=== PATIENT | female | born 1965 | race African-American/Black ===

== ENCOUNTER 2016-12-09 09:15 | Inpatient (IN) | payer MEDICARE, OTHER ==
[~2016-12-09] VITALS: Ht 162.6 cm; Wt 131.1 kg
[~2016-12-09 09:15] MED LIST: ACETAMINOPHEN-1 EAC1 ORAL; ADVAIR 250-501 EACH INH; AMOXICILLIN500 MG ORAL; ASPIR 8181 MG ORAL; CEPHALEXIN500 M1 ORAL; COLACE100 MG ORAL; DIPHENHYDRAMINE25 M1 ORAL; FUROSEMIDE20 M1 ORAL; GEODON40 MG ORAL; HYDROXYZINE PA100 MG ORAL; IBUPROFEN600 MG ORAL; ISOSORBIDE DINIT5 MG ORAL; LEVAQUIN500 MG ORAL; LIPITOR40 MG ORAL; LISINOPRIL5 MG ORAL; LOPRESSOR25 M1 ORAL; MEDROL DOSEPAK4 MG ORAL; MIRALAX17 GM ORAL; NICODERM 21MG/241 EA TDERMAL; NORCO 5-325 TA1 EACH ORAL; PENICILLIN V P500 MG ORAL; PROMETHAZINE-C118 M1 ORAL; QVAR ORAL; RANITIDINE HCL150 M1 ORAL; SPIRIVA18 MCG INH; TYLENOL325 MG ORAL; XOPENEX HFA15 GM IH; ZOLOFT100 MG ORAL
[2016-12-09 09:34] VITALS: BP 153/79
[2016-12-09] MEDS ORDERED: Solu-MEDROL 125mg Inj IVP ONE (09:45)
[2016-12-09 09:51] LABS: BASOPHILS % (AUTO) 0.7 % (0.0-2.0); EOSINOPHILS % (AUTO) 2.1 % (0.0-3.0); LYMPHOCYTES % (AUTO) 8.2 % (20.0-45.0); MEAN CORPUSCULAR HEMOGLOBIN 23.1 PG (27.0-31.0); MEAN CORPUSCULAR HGB CONC 29.2 G/DL (32.0-36.0); MEAN CORPUSCULAR VOLUME 79 FL (80-99); MEAN PLATELET VOLUME 5.6 FL (6.5-10.1); MONOCYTES % (AUTO) 4.2 % (1.0-10.0); NEUTROPHILS % (AUTO) 84.8 % (45.0-75.0); PLATELET COUNT 235 K/UL (150-450); RED CELL DISTRIBUTION WIDTH 18.5 % (11.6-14.8); WHITE BLOOD COUNT 7.5 K/UL (4.8-10.8)
[2016-12-09] MEDS: Albuterol ud Inhalation HHN SCH ×3 (09:52→10:39)
[2016-12-09] MEDS: Ipratropium 0.02% Inh Soln 2.5ml UD HHN SCH ×3 (09:52→10:39)
[2016-12-09 10:02] LABS: TROPONIN I < 0.30 ng/mL (<=0.30)
[2016-12-09 10:03] LABS: ALANINE AMINOTRANSFERASE 7 U/L (3-33); ALBUMIN/GLOBULIN RATIO 1.7 (1.0-2.7); ANION GAP 10 (5-15); ASPARTATE AMINO TRANSFERASE 15 U/L (5-40); CALCIUM 8.6 mg/dL (8.6-10.2); CARBON DIOXIDE 35 mEQ/L (20-30); CHLORIDE 96 mEQ/L (98-107); CREATININE 0.7 mg/dL (0.5-0.9); GLOMERULAR FILTRATION RATE > 60 mL/min (>60); HEMOLYSIS 33; POTASSIUM 3.7 mEQ/L (3.4-4.9); SODIUM 141 mEQ/L (135-145); TOTAL PROTEIN 6.4 g/dL (6.6-8.7)
[2016-12-09] MEDS ORDERED: TRAMADOL HCL100 M2 ORAL (10:10)
[2016-12-09] MEDS ORDERED: PROAIR HFA8.5 GM INH (10:10)
[2016-12-09] MEDS ORDERED: IBUPROFEN200 MG ORAL (10:10)
[2016-12-09] MEDS ORDERED: NITROGLYCERIN2.5 M1 SL (10:10)
[2016-12-09 10:13] LABS: CKMB < 1.5 ng/mL (< 3.8)
[2016-12-09 10:30] LABS: APPEARANCE,URINE SLIGHTLY CLOUDY; KETONES,URINE NEGATIVE (NEGATIVE); LEUKOCYTE ESTERASE ,URINE 1+ (NEGATIVE); NITRITE,URINE NEGATIVE (NEGATIVE); PH,URINE 6.5 (4.5-8.0); PROTEIN,URINE 1+ (NEGATIVE); UROBILINOGEN,URINE 1 MG/DL (0.0-1.0)
[2016-12-09 10:39] LABS: BACTERIA,URINE FEW /HPF; RBC,URINE 0-2 /HPF (0 - 2); SQUAMOUS EPITHELIAL CELL,UR MODERATE /LPF (NONE/OCC)
[2016-12-09 10:47] VITALS: BP 151/76
--- NOTE | 2016-12-09 11:14 | Diagnostic Imaging Report ---
Indication: Chest Pain Comparison: 5.716 A single view chest radiograph was obtained. Findings: Vascular congestion and cardiomegaly are demonstrated. No definite pleural effusions are seen. There is some motion artifact. Impression: CHF
--- NOTE | 2016-12-09 11:52 | History and Physical ---
History of Present Illness General Date patient seen: Dec 09, 2016 Reason for Hospitalization: Dyspnea/Respdistress Present Illness HPI 51-year-old female with hx of morbid obesity, CHF, COPD, smoking presented to ED complaining of shortness of breath x3 days. she had also productive cough and chest tightness. Denies any fevers or chills. No aggravating or relieving denies any other associated symptoms. Patient had pulmonary edema on cxr, was started on BIPAP and transferring to elif. Allergies: Coded Allergies: Lettuce (Verified Allergy, Severe, Anaphylaxis, 06/24/15) Uncoded Allergies: seafood (Allergy, Severe, 07/15/15) Medication History Scheduled Albuterol Sulfate* (Proair Hfa*), 2 PUFFS INH Q6H, (Reported) Amoxicillin* (Amoxil*), 500 MG ORAL THREE TIMES A DAY Aspirin* (Aspir 81*), 81 MG ORAL DAILY, (Reported) Atorvastatin Calcium* (Lipitor*), 80 MG ORAL BEDTIME, (Reported) Docusate Sodium* (Colace*), 100 MG ORAL DAILY, (Reported) Fluticasone/Salmeterol (Advair 250-50 Diskus), 1 PUFF INH EVERY 12 HOURS Furosemide* (Lasix*), 20 MG ORAL BID, (Reported) Hydroxyzine Pamoate* (Hydroxyzine Pamoate*), 50 MG ORAL HS, (Reported) Ibuprofen (Ibuprofen*), 800 MG ORAL THREE TIMES A DAY, (Reported) Isosorbide Dinitrate (Isosorbide Dinitrate*), 10 MG ORAL BID, (Reported) Lisinopril (Lisinopril*), 10 MG ORAL DAILY, (Reported) Methylprednisolone (Methylprednisolone), 4 MG ORAL .as directed Metoprolol Tartrate (Metoprolol Tartrate), 25 MG ORAL BID, (Reported) Nicotine (Nicotine Patch), 1 PATCH TDERMAL Q24H Sertraline Hcl* (Zoloft*), 200 MG ORAL DAILY, (Reported) Tiotropium [place]* (Spiriva*), 1 PUFF INH DAILY, (Reported) Tramadol Hcl (Tramadol Hcl), 50 MG ORAL BID, (Reported) Ziprasidone Hcl* (Geodon*), 40 MG ORAL TWICE A DAY, (Reported) Scheduled PRN Acetaminophen (Tylenol), 650 MG ORAL Q6H PRN for For Pain Acetaminophen With Codeine (T#3) (Tylenol #3 Tab*), 1 TAB ORAL EVERY 6 HOURS PRN for For Pain Codeine/Promethazine Hcl* (Promethazine-Codeine Syrup*), 5 ML ORAL Q6H PRN for For Cough, (Reported) Diphenhydramine Hcl* (Diphenhydramine Hcl*), 50 MG ORAL DAILY PRN for Itching, ( Reported) Ibuprofen* (Motrin*), 600 MG ORAL THREE TIMES A DAY PRN for For Pain, (Reported) Levalbuterol Tartrate (Xopenex Hfa), 15 GM IH EVERY 4 HOURS PRN for Shortness of Breath, (Reported) Ranitidine Hcl (Ranitidine Hcl), 150 MG ORAL BID PRN for GASTRITIS, (Reported) Miscellaneous Medications Nitroglycerin (Nitroglycerin), 0.4 MG SL, (Reported) [Qvar], 1 PUFF ORAL, (Reported) Patient History History Provided By: Patient Healthcare decision maker Resuscitation status Advanced Directive on File Past Medical/Surgical History Past Medical/Surgical History: (1) Morbid obesity (2) HTN (hypertension) (3) Sleep apnea Social History Social History: (1) History of smoking Review of Systems All Other Systems: negative except mentioned in HPI Physical Exam General Appearance: obese Lines, tubes and drains: peripheral, central line HEENT: normocephalic, atraumatic Neck: non-tender, normal alignment Respiratory/Chest: chest wall non-tender, lungs clear Breasts: no masses Cardiovascular/Chest: normal rate Abdomen: normal bowel sounds, non tender Genitourinary/Rectal: normal genital exam Extremities: normal range of motion, non-tender Neurologic: private watchman II-XII grossly normal Last 24 Hour Vital Signs Date Time Temp Pulse Resp B/P Pulse Ox O2 Delivery O2 Flow Rate FiO2 12/09/16 10:48 50 12/09/16 10:47 104 30 151/76 100 Bi-pap 50 12/09/16 10:25 90 18 100 Full Face 50 12/09/16 09:53 91 20 100 Non-Rebreather 15.0 100 12/09/16 09:53 100 12/09/16 09:53 92 21 Non-Rebreather 15.0 12/09/16 09:34 104 17 153/79 100 Non-Rebreather 15.0 12/09/16 09:28 98 26 Non-Rebreather 15.0 12/09/16 09:12 98.1 98 26 153/74 100 Non-Rebreather Laboratory Tests Test 12/09/16 09:22 12/09/16 10:25 White Blood Count 7.5 K/UL (4.8-10.8) Red Blood Count 4.50 M/UL (4.20-5.40) Hemoglobin 10.4 G/DL (12.0-16.0) L Hematocrit 35.5 % (37.0-47.0) L Mean Corpuscular Volume 79 FL (80-99) L Mean Corpuscular Hemoglobin 23.1 PG (27.0-31.0) L Mean Corpuscular Hemoglobin Concent 29.2 G/DL (32.0-36.0) L Red Cell Distribution Width 18.5 % (11.6-14.8) H Platelet Count 235 K/UL (150-450) Mean Platelet Volume 5.6 FL (6.5-10.1) L Neutrophils (%) (Auto) 84.8 % (45.0-75.0) H Lymphocytes (%) (Auto) 8.2 % (20.0-45.0) L Monocytes (%) (Auto) 4.2 % (1.0-10.0) Eosinophils (%) (Auto) 2.1 % (0.0-3.0) Basophils (%) (Auto) 0.7 % (0.0-2.0) Sodium Level 141 mEQ/L (135-145) Potassium Level 3.7 mEQ/L (3.4-4.9) Chloride Level 96 mEQ/L (98-107) L Carbon Dioxide Level 35 mEQ/L (20-30) H Anion Gap 10 (5-15) Blood Urea Nitrogen 4 mg/dL (7-23) L Creatinine 0.7 mg/dL (0.5-0.9) Estimat Glomerular Filtration Rate > 60 mL/min (>60) Glucose Level 97 mg/dL (74-106) Lactic Acid Level 0.90 mmol/L (0.66-2.22) Calcium Level 8.6 mg/dL (8.6-10.2) Total Bilirubin 0.6 mg/dL (0.0-1.2) Aspartate Amino Transf (AST/SGOT) 15 U/L (5-40) Alanine Aminotransferase (ALT/SGPT) 7 U/L (3-33) Alkaline Phosphatase 70 U/L (35-104) Total Creatine Kinase 87 U/L (26-140) Creatine Kinase MB < 1.5 ng/mL (< 3.8) Creatine Kinase MB Relative Index 1.7 Troponin I < 0.30 ng/mL (<=0.30) Pro-B-Type Natriuretic Peptide 478 pg/mL (0-125) H Total Protein 6.4 g/dL (6.6-8.7) L Albumin 4.1 g/dL (3.5-5.2) Globulin 2.3 g/dL Albumin/Globulin Ratio 1.7 (1.0-2.7) Urine Color Yellow Urine Appearance Slightly cloudy Urine pH 6.5 (4.5-8.0) Urine Specific [place] 1.010 (1.005-1.035) Urine Protein 1+ (NEGATIVE) H Urine Glucose (UA) Negative (NEGATIVE) Urine Ketones Negative (NEGATIVE) Urine Occult Blood Negative (NEGATIVE) Urine Nitrite Negative (NEGATIVE) Urine Bilirubin Negative (NEGATIVE) Urine Urobilinogen 1 MG/DL (0.0-1.0) H Urine Leukocyte Esterase 1+ (NEGATIVE) H Urine RBC 0-2 /HPF (0 - 2) Urine WBC 2-4 /HPF (0 - 2) Urine Squamous Epithelial Cells Moderate /LPF (NONE/OCC) H Urine Bacteria Few /HPF (NONE) Height (Feet): 5 Height (Inches): 4.00 Weight (Pounds): 263 Assessment/Plan Problem List: (1) CHF (congestive heart failure) ICD Codes: I50.9 - Heart failure, unspecified SNOMED: 82706040 Qualifiers: Qualified Codes: I50.33 - Acute on chronic diastolic (congestive) heart failure (2) Respiratory failure with hypoxia ICD Codes: J96.91 - Respiratory failure, unspecified with hypoxia SNOMED: [id number] Qualifiers: Qualified Codes: J96.21 - Acute and chronic respiratory failure with hypoxia (3) History of smoking ICD Codes: Z87.891 - Personal history of nicotine dependence SNOMED: 93954048369751175 (4) Sleep apnea ICD Codes: G47.30 - Sleep apnea, unspecified SNOMED: 37206203 Qualifiers: Qualified Codes: G47.33 - Obstructive sleep apnea (adult) (pediatric) (5) HTN (hypertension) ICD Codes: I10 - Essential (primary) hypertension SNOMED: 99662716 (6) Morbid obesity ICD Codes: E66.01 - Morbid obesity SNOMED: 554639524 (7) COPD exacerbation ICD Codes: J44.1 - Chronic obstructive pulmonary disease with (acute) exacerbation SNOMED: 009477190 Assessment/Plan lasix drip check sputum Iv antibiotics repeat echo, previous one was not done very well cardiac evaluation LAMIN NEWTON Dec 09, 2016 11:52
--- NOTE | 2016-12-09 11:56 | Emergency Room Report ---
History of Present Illness General Chief Complaint: Dyspnea/Respdistress Source: EMS Present Illness HPI 51-year-old female presents to ED complaining of shortness of breath x3 days. Has history of COPD. Notes productive cough and chest tightness. Denies any fevers or chills. Denies any chest pain. Denies sick contacts or recent travel. No aggravating or relieving denies any other associated symptoms Allergies: Coded Allergies: Lettuce (Verified Allergy, Severe, Anaphylaxis, 06/24/15) Uncoded Allergies: seafood (Allergy, Severe, 07/15/15) Patient History Past Medical History: DM, HTN, CHF, COPD, GERD Past Surgical History: none Pertinent Family History: none Social History: Denies: alcohol use, drug use, smoking Last Menstrual Period: current/abnormal "uterine fibroid" Now: No Immunizations: UTD Reviewed Nursing Documentation: PMH: Agreed, PSxH: Agreed Nursing Documentation-PMH Hx Cardiac Problems: Yes - CHF; High cholesterol; Uterine fibroid Hx Hypertension: Yes Hx COPD: Yes Hx Diabetes: Yes Hx Cancer: No Hx Gastrointestinal Problems: Yes - GERD Hx Neurological Problems: No Hx Dizziness: Yes Hx Headaches: Yes Review of Systems All Other Systems: negative except mentioned in HPI Physical Exam Vital Signs Date Time Temp Pulse Resp B/P Pulse Ox O2 Delivery O2 Flow Rate FiO2 12/09/16 09:12 98.1 98 26 153/74 100 Non-Rebreather 12/09/16 09:28 15.0 12/09/16 09:53 100 Sp02 EP Interpretation: reviewed, normal General Appearance: no apparent distress, alert, GCS 15, non-toxic, obese Head: normocephalic, atraumatic Eyes: bilateral eye PERRL, bilateral eye normal inspection ENT: hearing grossly normal, normal pharynx, no angioedema, normal voice Neck: full range of motion, supple/symm/no masses Respiratory: chest non-tender, decreased breath sounds, speaking full sentences , wheezing Cardiovascular #1: regular rate, rhythm, no edema Cardiovascular #2: 2+ carotid (R), 2+ carotid (L), 2+ radial (R), 2+ radial (L) , 2+ dorsalis pedis (R), 2+ dorsalis pedis (L) Gastrointestinal: normal bowel sounds, non tender, soft, non-distended, no guarding, no rebound Rectal: deferred Genitourinary: normal inspection, no CVA tenderness Musculoskeletal: back normal, gait/station normal, normal range of motion, non- tender Neurologic: alert, oriented x3, responsive, motor strength/tone normal, sensory intact, speech normal Psychiatric: judgement/insight normal, memory normal, mood/affect normal, no suicidal/homicidal ideation Reflexes: 3+ bicep (R), 3+ bicep (L), 3+ tricep (R), 3+ tricep (L), 3+ knee (R) , 3+ knee (L) Skin: normal color, no rash, warm/dry, well hydrated Lymphatic: no adenopathy Procedures Critical Care Time Critical Care Time i. I feel this is a highly complex case requiring extensive working including EKG/Rhythm strip, Xray/CT/US, Blood/urine lab work, repeat exams while in ED, and administration of strong opiates/narcotics for pain control, admission to hospital or close patient follow up. Total time: 30 min bedside evaluation and treatment excludes procedures (EKG). Reason for critical care: SOB, not responding to nebs Possible complications: hypotension, hypertension, ID, shock, arrhythmias, metabolic acidosis, end organ damage, respiratory failure. Interventions: labs, IVFs, EKG, nebs, solumedrol, BIPAP Course: Patient presents with shortness of breath. History of COPD and CHF. Reduced breath sounds. Started on nebulizers and Solu-Medrol. Not responding to treatment. Started on BiPAP. No leukocytosis, lactate okay, troponins negative Consultations: nursing staff, EMS, family Performed by: Dr Pena Tolerated well condition = serious j. because of unstable vital signs this patient had a condition that could potentially threaten life or limb. I feel this is a critical patient who required my full attention while patient was considered critical. Total Critical Care Time excluding procedures was greater than 35 minutes Medical Decision Making Diagnostic Impression: Primary Impression: COPD exacerbation Additional Impressions: CHF exacerbation Qualified Codes: I50.9 - Heart failure, unspecified Morbid obesity Qualified Codes: E66.01 - Morbid (severe) obesity due to excess calories Labs Test 12/09/16 09:22 12/09/16 10:25 White Blood Count 7.5 K/UL (4.8-10.8) Red Blood Count 4.50 M/UL (4.20-5.40) Hemoglobin 10.4 G/DL (12.0-16.0) Hematocrit 35.5 % (37.0-47.0) Mean Corpuscular Volume 79 FL (80-99) Mean Corpuscular Hemoglobin 23.1 PG (27.0-31.0) Mean Corpuscular Hemoglobin Concent 29.2 G/DL (32.0-36.0) Red Cell Distribution Width 18.5 % (11.6-14.8) Platelet Count 235 K/UL (150-450) Mean Platelet Volume 5.6 FL (6.5-10.1) Neutrophils (%) (Auto) 84.8 % (45.0-75.0) Lymphocytes (%) (Auto) 8.2 % (20.0-45.0) Monocytes (%) (Auto) 4.2 % (1.0-10.0) Eosinophils (%) (Auto) 2.1 % (0.0-3.0) Basophils (%) (Auto) 0.7 % (0.0-2.0) Sodium Level 141 mEQ/L (135-145) Potassium Level 3.7 mEQ/L (3.4-4.9) Chloride Level 96 mEQ/L (98-107) Carbon Dioxide Level 35 mEQ/L (20-30) Anion Gap 10 (5-15) Blood Urea Nitrogen 4 mg/dL (7-23) Creatinine 0.7 mg/dL (0.5-0.9) Estimat Glomerular Filtration Rate > 60 mL/min (>60) Glucose Level 97 mg/dL (74-106) Lactic Acid Level 0.90 mmol/L (0.66-2.22) Calcium Level 8.6 mg/dL (8.6-10.2) Total Bilirubin 0.6 mg/dL (0.0-1.2) Aspartate Amino Transf (AST/SGOT) 15 U/L (5-40) Alanine Aminotransferase (ALT/SGPT) 7 U/L (3-33) Alkaline Phosphatase 70 U/L (35-104) Total Creatine Kinase 87 U/L (26-140) Creatine Kinase MB < 1.5 ng/mL (< 3.8) Creatine Kinase MB Relative Index 1.7 Troponin I < 0.30 ng/mL (<=0.30) Pro-B-Type Natriuretic Peptide 478 pg/mL (0-125) Total Protein 6.4 g/dL (6.6-8.7) Albumin 4.1 g/dL (3.5-5.2) Globulin 2.3 g/dL Albumin/Globulin Ratio 1.7 (1.0-2.7) Urine Color Yellow Urine Appearance Slightly cloudy Urine pH 6.5 (4.5-8.0) Urine Specific [place] 1.010 (1.005-1.035) Urine Protein 1+ (NEGATIVE) Urine Glucose (UA) Negative (NEGATIVE) Urine Ketones Negative (NEGATIVE) Urine Occult Blood Negative (NEGATIVE) Urine Nitrite Negative (NEGATIVE) Urine Bilirubin Negative (NEGATIVE) Urine Urobilinogen 1 MG/DL (0.0-1.0) Urine Leukocyte Esterase 1+ (NEGATIVE) Urine RBC 0-2 /HPF (0 - 2) Urine WBC 2-4 /HPF (0 - 2) Urine Squamous Epithelial Cells Moderate /LPF (NONE/OCC) Urine Bacteria Few /HPF (NONE) EKG Diagnostic Results Rate: normal Rhythm: NSR ST Segments: no acute changes ASA given to the pt in ED: No Rhythm Strip Diag. Results EP Interpretation: yes Rhythm: NSR, no PVC's, no ectopy Chest X-Ray Diagnostic Results EP Interpretation: No Findings: no consolidation, no effusion, no pneumothorax, no acute cardiopulmonary disease, other - cardiomegaly. chf Number of Views: 1 Last Vital Signs Date Time Temp Pulse Resp B/P Pulse Ox O2 Delivery O2 Flow Rate FiO2 12/09/16 10:48 50 12/09/16 10:47 104 30 151/76 100 Bi-pap 12/09/16 09:53 15.0 12/09/16 09:12 98.1 Status: improved Disposition: ADMITTED INPATIENT Condition: Serious Referrals: NOT CHOSEN [facility]INE[facility]/,REFERRING (PCP) SUE PENA M.D. Dec 09, 2016 11:56
--- NOTE | 2016-12-09 11:59 | Emergency Room Report ---
Physical Exam Vital Signs Date Time Temp Pulse Resp B/P Pulse Ox O2 Delivery O2 Flow Rate FiO2 12/09/16 09:12 98.1 98 26 153/74 100 Non-Rebreather 12/09/16 09:28 15.0 12/09/16 09:53 100 Medical Decision Making Diagnostic Impression: Primary Impression: COPD exacerbation Additional Impressions: Morbid obesity Qualified Codes: E66.01 - Morbid (severe) obesity due to excess calories CHF exacerbation Qualified Codes: I50.9 - Heart failure, unspecified ER Course Hospital Course 51-year-old F presenting to ED with SOB. h/o COPD Differential diagnoses include: Pneumonia, CHF exacerbation, pneumothorax, fluid overload Clinical course Patient placed on stretcher. On child monitor with stable vitals. After initial history and physical, I ordered nebulizer treatments. I ordered labs, IV fluids, EKG, chest x-ray, blood cultures, UA. Labs - no leukocytosis noted, hemoglobin/hematocrit stable, electrolytes okay, lactate okay, troponins negative CXR - CHF, cardiomegaly Patient not responding to nebulizer treatments. Started on BiPAP. Improvement noted Case discussed with Dr. Ro and he agreed to the patient to his service for further care and support I feel this is a highly complex case requiring extensive working including EKG/ Rhythm strip, Xray/CT/US, Blood/urine lab work, repeat exams while in ED, and administration of strong opiates/narcotics for pain control, admission to hospital or close patient follow up. Diagnosis - COPD exacerbation, morbid obesity, CHF exacerbation Patient admitted to [facility] in serious condition Labs Test 12/09/16 09:22 12/09/16 10:25 White Blood Count 7.5 K/UL (4.8-10.8) Red Blood Count 4.50 M/UL (4.20-5.40) Hemoglobin 10.4 G/DL (12.0-16.0) Hematocrit 35.5 % (37.0-47.0) Mean Corpuscular Volume 79 FL (80-99) Mean Corpuscular Hemoglobin 23.1 PG (27.0-31.0) Mean Corpuscular Hemoglobin Concent 29.2 G/DL (32.0-36.0) Red Cell Distribution Width 18.5 % (11.6-14.8) Platelet Count 235 K/UL (150-450) Mean Platelet Volume 5.6 FL (6.5-10.1) Neutrophils (%) (Auto) 84.8 % (45.0-75.0) Lymphocytes (%) (Auto) 8.2 % (20.0-45.0) Monocytes (%) (Auto) 4.2 % (1.0-10.0) Eosinophils (%) (Auto) 2.1 % (0.0-3.0) Basophils (%) (Auto) 0.7 % (0.0-2.0) Sodium Level 141 mEQ/L (135-145) Potassium Level 3.7 mEQ/L (3.4-4.9) Chloride Level 96 mEQ/L (98-107) Carbon Dioxide Level 35 mEQ/L (20-30) Anion Gap 10 (5-15) Blood Urea Nitrogen 4 mg/dL (7-23) Creatinine 0.7 mg/dL (0.5-0.9) Estimat Glomerular Filtration Rate > 60 mL/min (>60) Glucose Level 97 mg/dL (74-106) Lactic Acid Level 0.90 mmol/L (0.66-2.22) Calcium Level 8.6 mg/dL (8.6-10.2) Total Bilirubin 0.6 mg/dL (0.0-1.2) Aspartate Amino Transf (AST/SGOT) 15 U/L (5-40) Alanine Aminotransferase (ALT/SGPT) 7 U/L (3-33) Alkaline Phosphatase 70 U/L (35-104) Total Creatine Kinase 87 U/L (26-140) Creatine Kinase MB < 1.5 ng/mL (< 3.8) Creatine Kinase MB Relative Index 1.7 Troponin I < 0.30 ng/mL (<=0.30) Pro-B-Type Natriuretic Peptide 478 pg/mL (0-125) Total Protein 6.4 g/dL (6.6-8.7) Albumin 4.1 g/dL (3.5-5.2) Globulin 2.3 g/dL Albumin/Globulin Ratio 1.7 (1.0-2.7) Urine Color Yellow Urine Appearance Slightly cloudy Urine pH 6.5 (4.5-8.0) Urine Specific [place] 1.010 (1.005-1.035) Urine Protein 1+ (NEGATIVE) Urine Glucose (UA) Negative (NEGATIVE) Urine Ketones Negative (NEGATIVE) Urine Occult Blood Negative (NEGATIVE) Urine Nitrite Negative (NEGATIVE) Urine Bilirubin Negative (NEGATIVE) Urine Urobilinogen 1 MG/DL (0.0-1.0) Urine Leukocyte Esterase 1+ (NEGATIVE) Urine RBC 0-2 /HPF (0 - 2) Urine WBC 2-4 /HPF (0 - 2) Urine Squamous Epithelial Cells Moderate /LPF (NONE/OCC) Urine Bacteria Few /HPF (NONE) EKG Diagnostic Results Rate: normal Rhythm: NSR ST Segments: no acute changes ASA given to the pt in ED: No Rhythm Strip Diag. Results EP Interpretation: yes Rhythm: NSR, no PVC's, no ectopy Chest X-Ray Diagnostic Results EP Interpretation: No Findings: no pneumothorax, no acute cardiopulmonary disease, other - cardiomegaly. chf Number of Views: 1 Last Vital Signs Date Time Temp Pulse Resp B/P Pulse Ox O2 Delivery O2 Flow Rate FiO2 12/09/16 11:52 90 18 100 Full Face 50 12/09/16 10:47 151/76 12/09/16 09:53 15.0 12/09/16 09:12 98.1 Status: improved Disposition: ADMITTED INPATIENT Condition: Serious Referrals: NOT CHOSEN [facility]/,REFERRING (PCP) SUE GORMAN M.D. Dec 09, 2016 11:59
[2016-12-09] MEDS ORDERED: Ketorolac 30mg Inj IV PRN (12:00)
[2016-12-09] MEDS ORDERED: LORazepam Inj 2mg/ml 1ml IV PRN (12:00)
[2016-12-09] MEDS ORDERED: Nitroglycerin Subl 0.4mg tab (Bottle Of 25) SL PRN (12:00)
[2016-12-09 12:29] VITALS: BP 154/88
[2016-12-09 13:01] VITALS: BP 147/75
[2016-12-09] MEDS: Solu-MEDROL 125mg Inj IV SCH ×2 (13:30→18:51)
[2016-12-09] MEDS: Promethazine/Codeine 5ml UD ORAL PRN ×2 (13:50→20:16)
[2016-12-09] MEDS: Lisinopril 10mg tab ORAL SCH (14:04)
[2016-12-09] MEDS: D5W IVPB SCH ×2 (14:24→21:28)
[2016-12-09] MEDS: [UNRECOGNIZED DRUG - OTHER] IVPB SCH ×2 (14:24→21:28)
[2016-12-09 16:14] VITALS: BP 149/84
[2016-12-09] MEDS: NovoLOG Insulin Flexpen SUBQ SCH ×2 (16:58→20:40)
[2016-12-09 20:07] VITALS: BP 148/85
[2016-12-09] MEDS: Morphine Sulfate 2mg/ml Inj IVP PRN (20:09)
[2016-12-09] MEDS: Theophylline ER 100mg ORAL SCH (20:40)
[2016-12-09] MEDS: Heparin 5000 units/ml inj SUBQ SCH (20:40)
[2016-12-09] MEDS: Atorvastatin 80mg tab ORAL SCH (20:41)
[2016-12-10 00:14] VITALS: BP 143/81
[2016-12-10] MEDS: Solu-MEDROL 125mg Inj IV SCH ×4 (00:40→17:26)
[2016-12-10 04:11] VITALS: BP 156/90
[2016-12-10] MEDS: [UNRECOGNIZED DRUG - OTHER] IVPB SCH ×3 (06:13→22:02)
[2016-12-10] MEDS: D5W IVPB SCH ×3 (06:13→22:02)
[2016-12-10] MEDS: NovoLOG Insulin Flexpen SUBQ SCH ×4 (06:15→20:56)
[2016-12-10] MEDS: Morphine Sulfate 2mg/ml Inj IVP PRN ×4 (06:38→20:02)
[2016-12-10] MEDS: Promethazine/Codeine 5ml UD ORAL PRN ×2 (06:40→17:26)
[2016-12-10] MEDS: Sertraline 100mg tab ORAL SCH (08:40)
[2016-12-10] MEDS: Aspirin EC 81mg tab ORAL SCH (08:40)
[2016-12-10] MEDS: Lisinopril 10mg tab ORAL SCH (08:40)
[2016-12-10] MEDS: Heparin 5000 units/ml inj SUBQ SCH ×2 (08:43→20:56)
[2016-12-10 08:45] VITALS: BP 114/59
[2016-12-10 12:00] VITALS: BP 108/60
[2016-12-10 13:40] LABS: MEAN CORPUSCULAR HEMOGLOBIN 23.1 PG (27.0-31.0); MEAN CORPUSCULAR HGB CONC 29.3 G/DL (32.0-36.0); MEAN CORPUSCULAR VOLUME 79 FL (80-99); MEAN PLATELET VOLUME 6.5 FL (6.5-10.1); PLATELET COUNT 251 K/UL (150-450); RED BLOOD COUNT 4.61 M/UL (4.20-5.40); RED CELL DISTRIBUTION WIDTH 18.7 % (11.6-14.8); WHITE BLOOD COUNT 9.1 K/UL (4.8-10.8)
[2016-12-10 14:00] LABS: BAND NEUTROPHILS % (MANUAL) 2 % (0-8); BASOPHILS % (MANUAL) 0 % (0-2); EOSINOPHILS % (MANUAL) 0 % (0-3); LYMPHOCYTES % (MANUAL) 7 % (20-45); NEUTROPHILS % (MANUAL) 88 % (45-75); PLATELET ESTIMATE ADEQUATE; PLATELET MORPHOLOGY NORMAL; TOTAL CELLS COUNTED 100
[2016-12-10 14:02] LABS: STOMATOCYTES OCCASIONAL
[2016-12-10 14:03] LABS: ANISOCYTOSIS 2+; HYPOCHROMASIA 1+
[2016-12-10 16:00] VITALS: BP 111/51
[2016-12-10] MEDS ORDERED: NS 275ml ONE (16:50)
[2016-12-10] MEDS ORDERED: Tubing IV Secondary IV ONE (16:50)
--- NOTE | 2016-12-10 19:55 | Cardiology Progress Note ---
Assessment/Plan Assessment/Plan copd exacerbation hs fo heart failure nrol ef by [employer] 03/2016 obesity tobacco use disorder uterine fibroid to be bx htn hyperlipidmia rxn for copd exacerbation hold off on rxn chf as pro bnp not elevated and bp is borderline smoking cessation fluand penumonia vaccines d/w pt [id number] Objective Last 24 Hour Vital Signs Date Time Temp Pulse Resp B/P Pulse Ox O2 Delivery O2 Flow Rate FiO2 12/10/16 16:48 90 12/10/16 16:00 98.7 90 19 111/51 96 Nasal Cannula 2.0 12/10/16 15:21 30 12/10/16 12:00 97.5 81 22 108/60 99 Room Air 12/10/16 11:05 30 12/10/16 08:51 95 26 96 Facial 30 12/10/16 08:46 30 12/10/16 08:45 97.0 87 18 114/59 93 Room Air 12/10/16 08:40 156/90 12/10/16 07:37 89 22 Nasal Cannula 2.0 12/10/16 04:14 84 12/10/16 04:11 98.6 70 18 156/90 95 Room Air 12/10/16 00:14 97.9 101 19 143/81 96 Bi-pap 12/10/16 00:01 111 12/10/16 00:00 30 12/09/16 22:27 82 25 96 Facial 30 12/09/16 22:06 85 24 97 Facial 30 12/09/16 22:00 30 12/09/16 20:42 97.5 12/09/16 20:07 97.5 101 13 148/85 94 Nasal Cannula 3.0 12/09/16 20:00 103 Intake and Output 12/09/16 12/10/16 19:00 07:00 Intake Total 620 ml 1074 ml Output Total 20 ml 1000 ml Balance 600 ml 74 ml Intake Oral 120 ml 900 ml IV Total 500 ml 174 ml Output Urine Total 20 ml 1000 ml # Voids 2 16 Laboratory Tests Test 12/10/16 12:50 White Blood Count 9.1 K/UL (4.8-10.8) Red Blood Count 4.61 M/UL (4.20-5.40) Hemoglobin 10.6 G/DL (12.0-16.0) L Hematocrit 36.3 % (37.0-47.0) L Mean Corpuscular Volume 79 FL (80-99) L Mean Corpuscular Hemoglobin 23.1 PG (27.0-31.0) L Mean Corpuscular Hemoglobin Concent 29.3 G/DL (32.0-36.0) L Red Cell Distribution Width 18.7 % (11.6-14.8) H Platelet Count 251 K/UL (150-450) Mean Platelet Volume 6.5 FL (6.5-10.1) Neutrophils (%) (Auto) % (45.0-75.0) Lymphocytes (%) (Auto) % (20.0-45.0) Monocytes (%) (Auto) % (1.0-10.0) Eosinophils (%) (Auto) % (0.0-3.0) Basophils (%) (Auto) % (0.0-2.0) Differential Total Cells Counted 100 Neutrophils % (Manual) 88 % (45-75) H Lymphocytes % (Manual) 7 % (20-45) L Monocytes % (Manual) 3 % (1-10) Eosinophils % (Manual) 0 % (0-3) Basophils % (Manual) 0 % (0-2) Band Neutrophils 2 % (0-8) Platelet Estimate Adequate Platelet Morphology Normal Hypochromasia 1+ Anisocytosis 2+ Stomatocytes ANDI Daniels Dec 10, 2016 19:55
[2016-12-10 20:00] VITALS: BP 119/61
--- NOTE | 2016-12-10 20:27 | Cardiology Report ---
APPROVED REPORT EKG Measurement Heart [id number] [place] [id number] Normal sinus rhythm T wave abnormality, consider anterolateral ischemia Prolonged QT Abnormal ECG
[2016-12-10] MEDS: Atorvastatin 80mg tab ORAL SCH (20:57)
[2016-12-10] MEDS: Theophylline ER 100mg ORAL SCH (20:57)
[2016-12-10] MEDS: DuoNeb 0.5-3(2.5)mg/3ml neb HHN PRN (21:08)
[2016-12-11] VITALS (7 sets, daily range): BP systolic 100–160; BP diastolic 56–95
--- NOTE | 2016-12-11 00:27 | Consultation ---
DATE OF CONSULTATION: 12/10/2016 CARDIOLOGY CONSULTATION CONSULTING PHYSICIAN: Tyler Batista M.D. REFERRING PHYSICIAN: Win Ro M.D. REASON FOR REFERRAL: Congestive heart failure and COPD. HISTORY OF PRESENT ILLNESS: This is a 51-year-old female with history of COPD and CHF, who comes into the hospital because of shortness of breath, gradual onset, in apparently over few days of coughing and initially no sputum production. Now mild sputum with dark yellow. She has some fevers and chills. No sore throat. No body aches or pains. Never received a flu vaccine, never received a pneumonia vaccine. She has also had some tightness in her chest, which she apparently gets with her COPD and CHF exacerbation. She is not sure, which one of them. She has been previously told that she has a weakened heart muscle according to herself. She sleeps in a recliner. She is unable to sleep in the bed because of shortness of breath, has exertional dyspnea with times of limited activity, some times more or less. She does not have any dizziness or lightheadedness. She has no heart pounding or palpitations. ALLERGIES: She has no known drug allergies. SOCIAL HISTORY: She smokes one pack, lasted 2 or 3 days, and drinks alcoholic beverages. There is no drug use. PAST MEDICAL HISTORY: Positive for high blood pressure, high cholesterol, congestive heart failure, COPD exacerbations, obesity, uterine supposedly fibroid and she was scheduled to have biopsy, which she ended up coming into the hospital this time. No history of heart attack. No cancer. No stroke. No hepatitis or tuberculosis. No ulcers. No kidney, liver problems, thyroid problems, anemia, or arthritis. REVIEW OF SYSTEMS: Gastrointestinal: She denies fevers. She does have some burning on urination. Some blood in the urine. Pulmonary: Positive as mentioned in history of present illness. Constitutional: As mentioned in history of present illness. Neurologic: She denies. PHYSICAL EXAMINATION: GENERAL: Shows to be elderly middle-aged female, looks older than her stated age. She is obese, overweight. She has been admitted with respiratory discomfort. NECK: Supple. No jugular venous distention. LUNGS: Decreased air entry bilaterally with wheezes, expiratory miranda. CARDIAC: Regular rate and rhythm. No heaves or thrills noted. ABDOMEN: Soft and obese. Positive bowel sounds. Nontender. EXTREMITIES: There is no clubbing, cyanosis, nor is there any edema. NEUROLOGIC: She is awake, alert, responsive, and in no apparent respiratory distress. LABORATORY TEST: She has a white count of 9.1, hemoglobin 10.6, platelet count of 251,000. Her sodium 141, potassium 3.7, chloride 96, bicarbonate 35, BUN of 44, creatinine 0.7, glucose of 97, and lactic acid of 0.9. Troponin less than 0.3 yesterday. ProBNP only 478. Albumin is 4.3. Urinalysis shows 2 to 4 WBCs. ASSESSMENT AND PLAN: 1. Chronic obstructive pulmonary disease with exacerbation. 2. Reported history of congestive heart failure. 3. Obesity. 4. Uterine fibroid to be biopsied. 5. Hyperlipidemia. 6. Hypertension. 7. Tobacco dependence syndrome. PLAN: Dr. Ro, this patient was seen in cardiac consultation. The patient's electrocardiogram that was performed shows some T-wave inversions in V1, V2, V3, V4, V5, V6, and basically all of EKG. In direct comparison with this EKG to the stress test EKG that was performed on April 28, 2016, looks like the EKG is not changed. Her proBNP is only 487 and she is quite short of breath and that is ongoing cause of COPD exacerbation. An attempt of an echocardiogram was previously made, however, was too technically difficult for being useful has mentioned and therefore the perfusion imaging was performed that showed ejection fraction of 67%. Her prior echocardiogram back in January of 2016 had showed technically difficult study with ejection fraction of 55% to 60%. An echocardiogram will be ordered, however, I suspect that most of her underlying issues are with COPD. Her blood pressure appears to be well controlled. I would not push too much diuretics the rather than treating her underlying COPD. I have encouraged her to get the flu vaccine once she is better from this present infection as well as consider pneumonia vaccine. We discussed the smoking cessation issues as well as the need for her to discontinue the usage of tobacco. She is on steroids at the present time. Tyler Batista M.D. DR: BRODY JOB#: [id number] CC:
[2016-12-11] MEDS: Solu-MEDROL 125mg Inj IV SCH ×3 (00:33→11:23)
[2016-12-11] MEDS: Promethazine/Codeine 5ml UD ORAL PRN ×3 (00:58→16:43)
[2016-12-11] MEDS: Morphine Sulfate 2mg/ml Inj IVP PRN ×4 (04:51→23:54)
[2016-12-11 05:22] LABS: MEAN CORPUSCULAR HEMOGLOBIN 23.2 PG (27.0-31.0); MEAN CORPUSCULAR HGB CONC 29.9 G/DL (32.0-36.0); MEAN CORPUSCULAR VOLUME 78 FL (80-99); MEAN PLATELET VOLUME 7.2 FL (6.5-10.1); PLATELET COUNT 304 K/UL (150-450); RED BLOOD COUNT 4.76 M/UL (4.20-5.40); RED CELL DISTRIBUTION WIDTH 18.7 % (11.6-14.8); WHITE BLOOD COUNT 10.3 K/UL (4.8-10.8)
[2016-12-11] MEDS: D5W IVPB SCH ×3 (06:41→22:14)
[2016-12-11] MEDS: [UNRECOGNIZED DRUG - OTHER] IVPB SCH ×3 (06:41→22:14)
[2016-12-11] MEDS: NovoLOG Insulin Flexpen SUBQ SCH ×4 (06:43→21:00)
[2016-12-11 06:59] LABS: ALANINE AMINOTRANSFERASE 11 U/L (3-33); ALBUMIN/GLOBULIN RATIO 1.1 (1.0-2.7); ANION GAP 12 (5-15); ASPARTATE AMINO TRANSFERASE 19 U/L (5-40); CARBON DIOXIDE 39 mEQ/L (20-30); CHLORIDE 94 mEQ/L (98-107); CHOLESTEROL 202 mg/dL (< 200); CHOLESTEROL/HDL RATIO 2.4 (3.3-4.4); CREATININE 0.9 mg/dL (0.5-0.9); GLOMERULAR FILTRATION RATE > 60 mL/min (>60); HEMOLYSIS 2; LDL CHOLESTEROL (CALC.) 103 mg/dL (60-99); POTASSIUM 3.5 mEQ/L (3.4-4.9); SODIUM 145 mEQ/L (135-145); TOTAL PROTEIN 7.6 g/dL (6.6-8.7); TROPONIN I < 0.30 ng/mL (<=0.30)
[2016-12-11] MEDS: Sertraline 100mg tab ORAL SCH (07:53)
[2016-12-11] MEDS: Aspirin EC 81mg tab ORAL SCH (07:53)
[2016-12-11] MEDS: Heparin 5000 units/ml inj SUBQ SCH ×2 (07:54→20:41)
[2016-12-11] MEDS: Lisinopril 10mg tab ORAL SCH (07:59)
--- NOTE | 2016-12-11 11:55 | Pulmonology Progress Note ---
Assessment/Plan Problems: (1) CHF (congestive heart failure) (2) Respiratory failure with hypoxia (3) History of smoking (4) Sleep apnea (5) HTN (hypertension) (6) Morbid obesity (7) COPD exacerbation Assessment/Plan improving decrease steroids check sputum cultures continue lasix check electrolytes Subjective ROS Limited/Unobtainable: No Interval Events: continues to improve, not back to normal yet Constitutional: Reports: no symptoms HEENT: Repors: no symptoms Allergies: Coded Allergies: Lettuce (Verified Allergy, Severe, Anaphylaxis, 06/24/15) Uncoded Allergies: seafood (Allergy, Severe, 07/15/15) Objective Last 24 Hour Vital Signs Date Time Temp Pulse Resp B/P Pulse Ox O2 Delivery O2 Flow Rate FiO2 12/11/16 11:21 96.4 20 122/63 100 Bi-pap 2.0 12/11/16 09:59 97.3 12/11/16 08:00 89 12/11/16 07:59 100/56 12/11/16 07:51 97.3 84 20 100/56 94 Bi-pap 2.0 12/11/16 07:12 Nasal Cannula 2.0 12/11/16 07:11 95 Nasal Cannula 2.0 12/11/16 07:10 88 20 Nasal Cannula 2.0 12/11/16 04:59 84 20 96 2.0 28 12/11/16 04:05 78 12/11/16 04:00 97.0 73 18 126/75 97 Bi-pap 12/11/16 04:00 30 12/11/16 03:18 92 22 98 Facial 30 12/11/16 00:32 82 24 97 Facial 30 12/11/16 00:32 70 12/11/16 00:11 97.3 81 16 138/79 99 Bi-pap 12/11/16 00:00 30 12/10/16 23:25 74 24 97 Facial 30 12/10/16 22:04 78 22 98 Facial 30 12/10/16 21:14 Nasal Cannula 2.0 28 12/10/16 21:14 96 Nasal Cannula 2.0 28 12/10/16 21:11 28 12/10/16 21:10 77 22 96 Nasal Cannula 2.0 28 12/10/16 21:00 77 22 Nasal Cannula 2.0 28 12/10/16 20:00 97.5 85 18 119/61 96 Nasal Cannula 2.0 12/10/16 19:18 93 12/10/16 16:48 90 12/10/16 16:00 98.7 90 19 111/51 96 Nasal Cannula 2.0 12/10/16 15:21 30 12/10/16 12:00 97.5 81 22 108/60 99 Room Air Intake and Output 12/10/16 12/11/16 18:59 06:59 Intake Total 546 ml 632 ml Output Total 1900 ml Balance 546 ml -1268 ml Intake Oral 300 ml 400 ml IV Total 246 ml 232 ml Output Urine Total 1900 ml # Voids 3 4 General Appearance: WD/WN HEENT: normocephalic, atraumatic Respiratory/Chest: chest wall non-tender, lungs clear Cardiovascular: normal peripheral pulses, normal rate Abdomen: normal bowel sounds, soft, non tender Genitourinary: normal external genitalia Extremities: no cyanosis 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 Microbiology Date/Time Source Procedure Growth Status 12/09/16 09:45 Blood Blood Culture - Preliminary NO GROWTH AFTER 24 HOURS Resulted 12/09/16 09:22 Blood Blood Culture - Preliminary NO GROWTH AFTER 24 HOURS Resulted 12/10/16 08:46 Sputum Gram Stain - Final Resulted 12/10/16 08:46 Sputum Sputum Culture Pending Resulted Laboratory Tests 12/10/16 12:50: White Blood Count 9.1, Red Blood Count 4.61, Hemoglobin 10.6L, Hematocrit 36.3L , Mean Corpuscular Volume 79L, Mean Corpuscular Hemoglobin 23.1L, Mean Corpuscular Hemoglobin Concent 29.3L, Red Cell Distribution Width 18.7H, Platelet Count 251, Mean Platelet Volume 6.5, Neutrophils (%) (Auto) , Lymphocytes (%) (Auto) , Monocytes (%) (Auto) , Eosinophils (%) (Auto) , Basophils (%) (Auto) , Differential Total Cells Counted 100, Neutrophils % ( Manual) 88H, Lymphocytes % (Manual) 7L, Monocytes % (Manual) 3, Eosinophils % ( Manual) 0, Basophils % (Manual) 0, Band Neutrophils 2, Platelet Estimate Adequate, Platelet Morphology Normal, Hypochromasia 1+, Anisocytosis 2+, Stomatocytes Occasional 12/11/16 03:45: White Blood Count 10.3, Red Blood Count 4.76, Hemoglobin 11.1L, Hematocrit 37.1 , Mean Corpuscular Volume 78L, Mean Corpuscular Hemoglobin 23.2L, Mean Corpuscular Hemoglobin Concent 29.9L, Red Cell Distribution Width 18.7H, Platelet Count 304, Mean Platelet Volume 7.2, Neutrophils (%) (Auto) , Lymphocytes (%) (Auto) , Monocytes (%) (Auto) , Eosinophils (%) (Auto) , Basophils (%) (Auto) , Sodium Level 145, Potassium Level 3.5, Chloride Level 94L , Carbon Dioxide Level 39H, Anion Gap 12, Blood Urea Nitrogen 16, Creatinine 0.9 , Estimat Glomerular Filtration Rate > 60, Glucose Level 120H, Calcium Level 9.0 , Total Bilirubin 0.4, Aspartate Amino Transf (AST/SGOT) 19, Alanine Aminotransferase (ALT/SGPT) 11, Alkaline Phosphatase 66, Troponin I < 0.30, Total Protein 7.6, Albumin 4.0, Globulin 3.6, Albumin/Globulin Ratio 1.1, Triglycerides Level 74, Cholesterol Level 202H, LDL Cholesterol 103H, HDL Cholesterol 84H, Cholesterol/HDL Ratio 2.4L Current Medications Medications (Trade) Dose Ordered Sig/May Route PRN Reason Start Time Stop Time Status Last Admin Dose Admin Albuterol/ Ipratropium (DuoNeb 0.5-3(2.5)mg/3ml) 3 ml Q4H PRN HHN dyspnea 12/09/16 12:00 12/14/16 11:59 12/10/16 21:08 Aspirin (Ecotrin) 81 mg DAILY ORAL 12/10/16 09:00 01/09/17 08:59 12/11/16 07:53 Atorvastatin Calcium (Lipitor) 80 mg BEDTIME ORAL 12/09/16 21:00 01/08/17 20:59 12/10/16 20:57 Dextrose STAT PRN IV Hypoglycemia 12/09/16 12:00 01/08/17 11:59 Furosemide/ Dextrose (Lasix/D5W 110ml) 110 ml @ 11 mls/hr Q10H IV 12/09/16 16:30 01/08/17 16:29 12/11/16 07:52 Heparin Sodium (Porcine) (Heparin 5000 units/ml) 5,000 units EVERY 12 HOURS SUBQ 12/09/16 21:00 01/08/17 20:59 12/11/16 07:54 Insulin Aspart (NovoLOG) BEFORE MEALS AND HS SUBQ 12/09/16 16:30 01/08/17 16:29 12/11/16 11:24 Lisinopril (Zestril) 10 mg DAILY ORAL 12/09/16 14:00 01/08/17 13:59 12/10/16 08:40 Lorazepam (Ativan 2mg/ml 1ml) 0.5 mg Q4H PRN IV For Anxiety 12/09/16 12:00 12/16/16 11:59 Methylprednisolone Sodium Succinate (Solu-MEDROL) 60 mg EVERY 6 HOURS IV 12/09/16 13:30 01/08/17 13:29 12/11/16 11:23 Morphine Sulfate (Morphine Sulfate) 2 mg Q4H PRN IVP severe pain 7-10 12/09/16 12:00 12/16/16 11:59 12/11/16 09:29 Nicotine (Nicoderm) 1 patch Q24H TDERMAL 12/09/16 18:00 01/08/17 17:59 Nitroglycerin (Ntg) 0.4 mg Q5M X 3 DOSES PRN SL Prn Chest Pain 12/09/16 12:00 01/08/17 11:59 Ondansetron HCl (Zofran) 4 mg Q6H PRN IVP Nausea & Vomiting 12/09/16 12:00 01/08/17 11:59 Piperacillin Sod/ Tazobactam Sod 3.375 gm/Dextrose 100 ml @ 25 mls/hr EVERY 8 HOURS IVPB 12/09/16 14:00 12/14/16 13:59 12/11/16 06:41 Promethazine HCl/ Codeine (Phenergan with Codeine) 5 ml Q6H PRN ORAL cough 12/09/16 12:00 01/08/17 11:59 12/11/16 07:52 Sertraline HCl (Zoloft) 200 mg DAILY ORAL 12/10/16 09:00 01/09/17 08:59 12/11/16 07:53 Temazepam (Restoril) 15 mg HSPRN PRN ORAL Insomnia 12/09/16 12:00 12/16/16 11:59 Theophylline (Willard-Dur) 100 mg Q24H ORAL 12/09/16 21:00 01/08/17 20:59 12/10/16 20:57 LAMIN NEWTON Dec 11, 2016 11:54
--- NOTE | 2016-12-11 12:48 | Diagnostic Imaging Report ---
Indication: Dyspnea Comparison: 12/09/16 A single view chest radiograph was obtained. Findings: Heart is enlarged. There is no infiltrate or pulmonary edema currently demonstrated. The bones are unremarkable. Impression: Interval resolution of CHF.
[2016-12-11] MEDS: DuoNeb 0.5-3(2.5)mg/3ml neb HHN PRN (17:59)
--- NOTE | 2016-12-11 19:58 | Cardiology Progress Note ---
Assessment/Plan Assessment/Plan copd exacerbation hs fo heart failure nrol ef by [facility] med 03/2016 obesity tobacco use disorder uterine fibroid to be bx htn hyperlipidmia rxn for copd exacerbation no diuretic needed watch bp maybe higer due to steorids ef previouosly normal by nuclear perfusion cv stable but still has sig pulm finding Subjective Cardiovascular: Denies: chest pain, lightheadedness, palpitations Respiratory: Reports: cough, shortness of breath, sputum Gastrointestinal/Abdominal: Denies: abdomen distended, abdominal pain Genitourinary: Denies: burning Objective Last 24 Hour Vital Signs Date Time Temp Pulse Resp B/P Pulse Ox O2 Delivery O2 Flow Rate FiO2 12/11/16 19:45 90 20 Nasal Cannula 2.0 28 12/11/16 19:45 Nasal Cannula 2.0 28 12/11/16 19:45 98 Nasal Cannula 2.0 28 12/11/16 18:01 88 22 100 Nasal Cannula 2.0 12/11/16 17:50 85 20 98 Nasal Cannula 2.0 12/11/16 16:00 97.5 73 18 153/95 94 Bi-pap 2.0 12/11/16 16:00 73 12/11/16 12:00 78 12/11/16 11:21 96.4 20 122/63 100 Bi-pap 2.0 12/11/16 09:59 97.3 12/11/16 08:00 89 12/11/16 07:59 100/56 12/11/16 07:51 97.3 84 20 100/56 94 Bi-pap 2.0 12/11/16 07:12 Nasal Cannula 2.0 12/11/16 07:11 95 Nasal Cannula 2.0 12/11/16 07:10 88 20 Nasal Cannula 2.0 12/11/16 04:59 84 20 96 2.0 28 12/11/16 04:05 78 12/11/16 04:00 97.0 73 18 126/75 97 Bi-pap 12/11/16 04:00 30 12/11/16 03:18 92 22 98 Facial 30 12/11/16 00:32 82 24 97 Facial 30 12/11/16 00:32 70 12/11/16 00:11 97.3 81 16 138/79 99 Bi-pap 12/11/16 00:00 30 12/10/16 23:25 74 24 97 Facial 30 12/10/16 22:04 78 22 98 Facial 30 12/10/16 21:14 Nasal Cannula 2.0 28 12/10/16 21:14 96 Nasal Cannula 2.0 28 12/10/16 21:11 28 12/10/16 21:10 77 22 96 Nasal Cannula 2.0 28 12/10/16 21:00 77 22 Nasal Cannula 2.0 28 12/10/16 20:00 97.5 85 18 119/61 96 Nasal Cannula 2.0 General Appearance: alert, obese Neck: supple Cardiovascular: normal rate, regular rhythm Respiratory/Chest: expiratory wheezing Abdomen: normal bowel sounds, soft Extremities: no swelling Intake and Output 12/10/16 12/11/16 19:00 07:00 Intake Total 546 ml 657 ml Output Total 1900 ml Balance 546 ml -1243 ml Intake Oral 300 ml 400 ml IV Total 246 ml 257 ml Output Urine Total 1900 ml # Voids 3 4 Laboratory Tests Test 12/11/16 03:45 White Blood Count 10.3 K/UL (4.8-10.8) Red Blood Count 4.76 M/UL (4.20-5.40) Hemoglobin 11.1 G/DL (12.0-16.0) L Hematocrit 37.1 % (37.0-47.0) Mean Corpuscular Volume 78 FL (80-99) L Mean Corpuscular Hemoglobin 23.2 PG (27.0-31.0) L Mean Corpuscular Hemoglobin Concent 29.9 G/DL (32.0-36.0) L Red Cell Distribution Width 18.7 % (11.6-14.8) H Platelet Count 304 K/UL (150-450) Mean Platelet Volume 7.2 FL (6.5-10.1) Neutrophils (%) (Auto) % (45.0-75.0) Lymphocytes (%) (Auto) % (20.0-45.0) Monocytes (%) (Auto) % (1.0-10.0) Eosinophils (%) (Auto) % (0.0-3.0) Basophils (%) (Auto) % (0.0-2.0) Sodium Level 145 mEQ/L (135-145) Potassium Level 3.5 mEQ/L (3.4-4.9) Chloride Level 94 mEQ/L (98-107) L Carbon Dioxide Level 39 mEQ/L (20-30) H Anion Gap 12 (5-15) Blood Urea Nitrogen 16 mg/dL (7-23) Creatinine 0.9 mg/dL (0.5-0.9) Estimat Glomerular Filtration Rate > 60 mL/min (>60) Glucose Level 120 mg/dL (74-106) H Calcium Level 9.0 mg/dL (8.6-10.2) Total Bilirubin 0.4 mg/dL (0.0-1.2) Aspartate Amino Transf (AST/SGOT) 19 U/L (5-40) Alanine Aminotransferase (ALT/SGPT) 11 U/L (3-33) Alkaline Phosphatase 66 U/L (35-104) Troponin I < 0.30 ng/mL (<=0.30) Total Protein 7.6 g/dL (6.6-8.7) Albumin 4.0 g/dL (3.5-5.2) Globulin 3.6 g/dL Albumin/Globulin Ratio 1.1 (1.0-2.7) Triglycerides Level 74 mg/dL (< 150) Cholesterol Level 202 mg/dL (< 200) H LDL Cholesterol 103 mg/dL (60-99) H HDL Cholesterol 84 mg/dL (> 60) H Cholesterol/HDL Ratio 2.4 (3.3-4.4) L Microbiology Date/Time Source Procedure Growth Status 12/09/16 09:45 Blood Blood Culture - Preliminary NO GROWTH AFTER 24 HOURS Resulted 12/09/16 09:22 Blood Blood Culture - Preliminary NO GROWTH AFTER 24 HOURS Resulted 12/10/16 08:46 Sputum Gram Stain - Final Resulted 12/10/16 08:46 Sputum Sputum Culture Pending Resulted ANDI ZACARIAS Dec 11, 2016 19:58
[2016-12-11] MEDS: Atorvastatin 80mg tab ORAL SCH (20:40)
[2016-12-11] MEDS: Theophylline ER 100mg ORAL SCH (20:40)
[2016-12-11] MEDS ORDERED: Solu-MEDROL 125mg Inj IV SCH (21:00)
[2016-12-11] MEDS ORDERED: Nitroglycerin Subl 0.4mg tab (Bottle Of 25) SL PRN (22:45)
[2016-12-11] MEDS ORDERED: DuoNeb 0.5-3(2.5)mg/3ml neb HHN PRN (23:20)
[2016-12-12] VITALS: BP 137/79
[2016-12-12 04:00] VITALS: BP 100/57
[2016-12-12] MEDS: Promethazine/Codeine 5ml UD ORAL PRN (04:56)
[2016-12-12] MEDS: NovoLOG Insulin Flexpen SUBQ SCH ×4 (06:41→21:12)
[2016-12-12 07:54] VITALS: BP 129/76
[2016-12-12 08:26] LABS: ALANINE AMINOTRANSFERASE 11 U/L (3-33); ALBUMIN/GLOBULIN RATIO 1.2 (1.0-2.7); ANION GAP 12 (5-15); ASPARTATE AMINO TRANSFERASE 13 U/L (5-40); CALCIUM 8.6 mg/dL (8.6-10.2); CARBON DIOXIDE 40 mEQ/L (20-30); CHLORIDE 89 mEQ/L (98-107); CREATININE 0.9 mg/dL (0.5-0.9); GLOMERULAR FILTRATION RATE > 60 mL/min (>60); HEMOLYSIS 0; PHOSPHORUS 3.8 mg/dL (2.5-4.8); POTASSIUM 2.9 mEQ/L (3.4-4.9); SODIUM 141 mEQ/L (135-145); TOTAL PROTEIN 7.3 g/dL (6.6-8.7)
[2016-12-12 08:39] LABS: BASOPHILS % (AUTO) 0.4 % (0.0-2.0); LYMPHOCYTES % (AUTO) 18.8 % (20.0-45.0); MEAN CORPUSCULAR HEMOGLOBIN 23.7 PG (27.0-31.0); MEAN CORPUSCULAR HGB CONC 30.4 G/DL (32.0-36.0); MEAN CORPUSCULAR VOLUME 78 FL (80-99); MEAN PLATELET VOLUME 6.6 FL (6.5-10.1); MONOCYTES % (AUTO) 5.7 % (1.0-10.0); NEUTROPHILS % (AUTO) 75.1 % (45.0-75.0); PLATELET COUNT 297 K/UL (150-450); RED BLOOD COUNT 4.94 M/UL (4.20-5.40); RED CELL DISTRIBUTION WIDTH 18.5 % (11.6-14.8); WHITE BLOOD COUNT 10.6 K/UL (4.8-10.8)
[2016-12-12] MEDS: Aspirin EC 81mg tab ORAL SCH (08:41)
[2016-12-12] MEDS: Sertraline 100mg tab ORAL SCH (08:41)
[2016-12-12] MEDS: Lisinopril 10mg tab ORAL SCH (08:42)
[2016-12-12] MEDS: Heparin 5000 units/ml inj SUBQ SCH ×2 (08:44→20:58)
[2016-12-12] MEDS: Morphine Sulfate 2mg/ml Inj IVP PRN ×3 (08:45→19:45)
[2016-12-12] MEDS ORDERED: Solu-MEDROL 125mg Inj IV SCH (09:00)
--- NOTE | 2016-12-12 09:57 | Pulmonology Progress Note ---
Assessment/Plan Problems: (1) Purulent bronchitis (2) CHF (congestive heart failure) (3) Respiratory failure with hypoxia (4) History of smoking (5) Sleep apnea (6) HTN (hypertension) (7) Morbid obesity (8) COPD exacerbation Assessment/Plan dc zosyn start levoflox and diflucan ( fungal in sputum and on steroids) improving decrease steroids check sputum cultures continue lasix check electrolytes cxr in am Subjective ROS Limited/Unobtainable: No Interval Events: slightly better, coughing up dark brown phlegmn Allergies: Coded Allergies: Lettuce (Verified Allergy, Severe, Anaphylaxis, 06/24/15) Uncoded Allergies: seafood (Allergy, Severe, anaphylaxic shock, 12/11/16) all seafoo Objective Last 24 Hour Vital Signs Date Time Temp Pulse Resp B/P Pulse Ox O2 Delivery O2 Flow Rate FiO2 12/12/16 08:42 129/76 12/12/16 08:28 92 20 100 Nasal Cannula 2.0 12/12/16 08:18 98 Nasal Cannula 2.0 28 12/12/16 08:18 Nasal Cannula 2.0 28 12/12/16 08:18 95 20 98 Nasal Cannula 2.0 12/12/16 08:18 95 20 Nasal Cannula 2.0 28 12/12/16 07:54 96.1 94 20 129/76 96 Nasal Cannula 2.0 12/12/16 04:00 97.0 110 20 100/57 99 Bi-pap 12/12/16 04:00 98 12/12/16 01:46 88 26 98 Facial 30 12/12/16 00:00 68 12/12/16 00:00 97.0 71 20 137/79 94 Nasal Cannula 3.0 12/11/16 23:34 70 28 97 Facial 30 12/11/16 23:00 76 18 160/95 Nasal Cannula 2.0 96 12/11/16 20:00 82 12/11/16 20:00 97.0 73 20 153/83 97 Bi-pap 2.0 12/11/16 19:45 90 20 Nasal Cannula 2.0 28 12/11/16 19:45 Nasal Cannula 2.0 28 12/11/16 19:45 98 Nasal Cannula 2.0 28 12/11/16 18:01 88 22 100 Nasal Cannula 2.0 12/11/16 17:50 85 20 98 Nasal Cannula 2.0 1/13/17 16:00 97.5 73 18 153/95 94 Bi-pap 2.0 12/11/16 16:00 73 12/11/16 12:00 78 12/11/16 11:21 96.4 20 122/63 100 Bi-pap 2.0 12/11/16 09:59 97.3 Intake and Output 12/11/16 12/12/16 19:00 07:00 Intake Total 971 ml 199 ml Output Total 1000 ml Balance -29 ml 199 ml Intake Oral 700 ml IV Total 271 ml 199 ml Output Urine Total 1000 ml # Voids 2 1 General Appearance: WD/WN HEENT: normocephalic, anicteric Respiratory/Chest: chest wall non-tender, lungs clear Breasts: no masses Cardiovascular: normal peripheral pulses, normal rate Abdomen: normal bowel sounds, soft, non tender Genitourinary: normal external genitalia Extremities: no clubbing 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, no motor/sensory deficits Lymphatic: no neck adenopathy Microbiology Date/Time Source Procedure Growth Status 12/10/16 08:46 Sputum Gram Stain - Final Complete 12/10/16 08:46 Sputum Culture - Final Veronica Albicans Usual Respiratory Jannet Complete Laboratory Tests 12/12/16 07:20: White Blood Count 10.6, Red Blood Count 4.94, Hemoglobin 11.7L, Hematocrit 38.5 , Mean Corpuscular Volume 78L, Mean Corpuscular Hemoglobin 23.7L, Mean Corpuscular Hemoglobin Concent 30.4L, Red Cell Distribution Width 18.5H, Platelet Count 297, Mean Platelet Volume 6.6, Neutrophils (%) (Auto) 75.1H, Lymphocytes (%) (Auto) 18.8L, Monocytes (%) (Auto) 5.7, Eosinophils (%) (Auto) 0.0, Basophils (%) (Auto) 0.4, Sodium Level 141, Potassium Level 2.9L, Chloride Level 89L, Carbon Dioxide Level 40H, Anion Gap 12, Blood Urea Nitrogen 17, Creatinine 0.9, Estimat Glomerular Filtration Rate > 60, Glucose Level 117H, Calcium Level 8.6, Phosphorus Level 3.8, Magnesium Level 2.0, Total Bilirubin 0.3, Aspartate Amino Transf (AST/SGOT) 13, Alanine Aminotransferase (ALT/SGPT) 11, Alkaline Phosphatase 58, Total Protein 7.3, Albumin 4.0, Globulin 3.3, Albumin/Globulin Ratio 1.2 Current Medications Medications (Trade) Dose Ordered Sig/May Route PRN Reason Start Time Stop Time Status Last Admin Dose Admin Albuterol/ Ipratropium (DuoNeb 0.5-3(2.5)mg/3ml) 3 ml Q4H PRN HHN dyspnea 12/11/16 23:20 12/16/16 23:19 12/12/16 08:17 Aspirin (Ecotrin) 81 mg DAILY ORAL 12/12/16 09:00 01/11/17 08:59 12/12/16 08:41 Atorvastatin Calcium (Lipitor) 80 mg BEDTIME ORAL 12/12/16 21:00 01/11/17 20:59 Dextrose (Dextrose 50%) STAT PRN IV Hypoglycemia 12/11/16 23:17 01/10/17 23:16 Furosemide 100 mg/ Dextrose 110 ml @ 11 mls/hr Q10H IV 12/12/16 00:00 01/11/17 00:00 12/12/16 00:18 Heparin Sodium (Porcine) (Heparin 5000 units/ml) 5,000 units EVERY 12 HOURS SUBQ 12/12/16 09:00 01/11/17 08:59 12/12/16 08:44 Insulin Aspart (NovoLOG) BEFORE MEALS AND HS SUBQ 12/12/16 06:30 01/11/17 06:29 12/12/16 06:41 Lisinopril (Zestril) 10 mg DAILY ORAL 12/12/16 09:00 01/11/17 08:59 12/12/16 08:42 Lorazepam (Ativan 2mg/ml 1ml) 0.5 mg Q4H PRN IV For Anxiety 12/11/16 23:21 12/18/16 23:20 Methylprednisolone Sodium Succinate (Solu-MEDROL) 60 mg EVERY 12 HOURS IV 12/12/16 09:00 01/11/17 08:59 12/12/16 08:42 Morphine Sulfate (Morphine Sulfate) 2 mg Q4H PRN IVP severe pain 7-10 12/11/16 23:21 12/18/16 23:20 12/12/16 08:45 Nicotine (Nicoderm) 1 patch Q24H TDERMAL 12/12/16 18:00 01/11/17 17:59 Nitroglycerin (Ntg) 0.4 mg Q5M X 3 DOSES PRN SL Prn Chest Pain 12/11/16 22:45 01/10/17 22:44 Ondansetron HCl (Zofran) 4 mg Q6H PRN IVP Nausea & Vomiting 12/11/16 23:22 01/10/17 23:21 Piperacillin Sod/ Tazobactam Sod/ Dextrose (Zosyn/D5W 100ml) 100 ml @ 25 mls/hr EVERY 8 HOURS IVPB 12/12/16 06:00 12/19/16 05:59 12/12/16 05:57 Promethazine HCl/ Codeine (Phenergan with Codeine) 5 ml Q6H PRN ORAL cough 12/11/16 23:23 01/10/17 23:22 12/12/16 04:56 Sertraline HCl (Zoloft) 200 mg DAILY ORAL 12/12/16 09:00 01/11/17 08:59 12/12/16 08:41 Temazepam (Restoril) 15 mg HSPRN PRN ORAL Insomnia 12/11/16 23:24 12/18/16 23:23 Theophylline (Willard-Dur) 100 mg Q24H ORAL 12/12/16 21:00 01/11/17 20:59 LAMIN NEWTON Dec 12, 2016 09:57
[2016-12-12 11:38] VITALS: BP 130/70
--- NOTE | 2016-12-12 14:35 | Cardiology Progress Note ---
Assessment/Plan Status: stable, progressing Status Narrative Cardiac status stable. She has CP, but has had recent negative stress nuclear study. She has dyspnea, w/ mildly dec LV systolic function by ECHO ( EF 40s) Assessment/Plan Would dc lasix infusion and give qd or bid iv lasix, to keep i/os sl negative. continue lisinopril for hypertension. continue steroids, bronchodiilators, abx for bronchitis per pulm Followup labs in am. continue to follow i/os , wts. Subjective ROS Limited/Unobtainable: No Subjective c/o cough, productive of yellow sputum. Occ CP Objective Last 24 Hour Vital Signs Date Time Temp Pulse Resp B/P Pulse Ox O2 Delivery O2 Flow Rate FiO2 12/12/16 11:38 97.5 105 19 130/70 96 Nasal Cannula 2.0 12/12/16 08:42 129/76 12/12/16 08:28 92 20 100 Nasal Cannula 2.0 12/12/16 08:18 98 Nasal Cannula 2.0 28 12/12/16 08:18 Nasal Cannula 2.0 28 12/12/16 08:18 95 20 98 Nasal Cannula 2.0 12/12/16 08:18 95 20 Nasal Cannula 2.0 28 12/12/16 08:00 97 12/12/16 07:54 96.1 94 20 129/76 96 Nasal Cannula 2.0 12/12/16 04:00 97.0 110 20 100/57 99 Bi-pap 12/12/16 04:00 98 12/12/16 01:46 88 26 98 Facial 30 12/12/16 00:00 68 12/12/16 00:00 97.0 71 20 137/79 94 Nasal Cannula 3.0 12/11/16 23:34 70 28 97 Facial 30 12/11/16 23:00 76 18 160/95 Nasal Cannula 2.0 96 12/11/16 20:00 82 12/11/16 20:00 97.0 73 20 153/83 97 Bi-pap 2.0 12/11/16 19:45 90 20 Nasal Cannula 2.0 28 12/11/16 19:45 Nasal Cannula 2.0 28 12/11/16 19:45 98 Nasal Cannula 2.0 28 12/11/16 18:01 88 22 100 Nasal Cannula 2.0 12/11/16 17:50 85 20 98 Nasal Cannula 2.0 12/11/16 16:00 97.5 73 18 153/95 94 Bi-pap 2.0 12/11/16 16:00 73 General Appearance: WD/WN, alert, obese Neck: non-tender Cardiovascular: normal rate, no gallop/murmur Respiratory/Chest: other - scattered rhonchi shayne Abdomen: non tender, soft Extremities: no swelling Intake and Output 12/11/16 12/12/16 19:00 07:00 Intake Total 971 ml 199 ml Output Total 1000 ml Balance -29 ml 199 ml Intake Oral 700 ml IV Total 271 ml 199 ml Output Urine Total 1000 ml # Voids 2 1 Laboratory Tests Test 12/12/16 07:20 White Blood Count 10.6 K/UL (4.8-10.8) Red Blood Count 4.94 M/UL (4.20-5.40) Hemoglobin 11.7 G/DL (12.0-16.0) L Hematocrit 38.5 % (37.0-47.0) Mean Corpuscular Volume 78 FL (80-99) L Mean Corpuscular Hemoglobin 23.7 PG (27.0-31.0) L Mean Corpuscular Hemoglobin Concent 30.4 G/DL (32.0-36.0) L Red Cell Distribution Width 18.5 % (11.6-14.8) H Platelet Count 297 K/UL (150-450) Mean Platelet Volume 6.6 FL (6.5-10.1) Neutrophils (%) (Auto) 75.1 % (45.0-75.0) H Lymphocytes (%) (Auto) 18.8 % (20.0-45.0) L Monocytes (%) (Auto) 5.7 % (1.0-10.0) Eosinophils (%) (Auto) 0.0 % (0.0-3.0) Basophils (%) (Auto) 0.4 % (0.0-2.0) Sodium Level 141 mEQ/L (135-145) Potassium Level 2.9 mEQ/L (3.4-4.9) L Chloride Level 89 mEQ/L (98-107) L Carbon Dioxide Level 40 mEQ/L (20-30) H Anion Gap 12 (5-15) Blood Urea Nitrogen 17 mg/dL (7-23) Creatinine 0.9 mg/dL (0.5-0.9) Estimat Glomerular Filtration Rate > 60 mL/min (>60) Glucose Level 117 mg/dL (74-106) H Calcium Level 8.6 mg/dL (8.6-10.2) Phosphorus Level 3.8 mg/dL (2.5-4.8) Magnesium Level 2.0 mg/dL (1.7-2.5) Total Bilirubin 0.3 mg/dL (0.0-1.2) Aspartate Amino Transf (AST/SGOT) 13 U/L (5-40) Alanine Aminotransferase (ALT/SGPT) 11 U/L (3-33) Alkaline Phosphatase 58 U/L (35-104) Total Protein 7.3 g/dL (6.6-8.7) Albumin 4.0 g/dL (3.5-5.2) Globulin 3.3 g/dL Albumin/Globulin Ratio 1.2 (1.0-2.7) Microbiology Date/Time Source Procedure Growth Status 12/10/16 08:46 Sputum Gram Stain - Final Complete 12/10/16 08:46 Sputum Culture - Final Veronica Albicans Usual Respiratory Jannet Complete GIULIA HAMILTON Dec 12, 2016 14:35
[2016-12-12 16:00] VITALS: BP 107/64
[2016-12-12 20:00] VITALS: BP 111/68
[2016-12-12] MEDS: Atorvastatin 80mg tab ORAL SCH (20:37)
[2016-12-12] MEDS: Theophylline ER 100mg ORAL SCH (20:37)
[2016-12-13 00:19] VITALS: BP 147/88
[2016-12-13] MEDS: Promethazine/Codeine 5ml UD ORAL PRN ×2 (02:18→21:36)
[2016-12-13] MEDS: Morphine Sulfate 2mg/ml Inj IVP PRN ×3 (02:28→17:24)
[2016-12-13 04:12] VITALS: BP 113/63
[2016-12-13 04:57] LABS: BASOPHILS % (AUTO) 0.9 % (0.0-2.0); EOSINOPHILS % (AUTO) 0.1 % (0.0-3.0); MEAN CORPUSCULAR HEMOGLOBIN 22.9 PG (27.0-31.0); MEAN CORPUSCULAR HGB CONC 29.6 G/DL (32.0-36.0); MEAN CORPUSCULAR VOLUME 77 FL (80-99); MEAN PLATELET VOLUME 6.1 FL (6.5-10.1); MONOCYTES % (AUTO) 9.9 % (1.0-10.0); NEUTROPHILS % (AUTO) 63.1 % (45.0-75.0); PLATELET COUNT 280 K/UL (150-450); RED BLOOD COUNT 5.52 M/UL (4.20-5.40); RED CELL DISTRIBUTION WIDTH 18.5 % (11.6-14.8); WHITE BLOOD COUNT 9.2 K/UL (4.8-10.8)
[2016-12-13 05:37] LABS: ALANINE AMINOTRANSFERASE 14 U/L (3-33); ALBUMIN/GLOBULIN RATIO 1.1 (1.0-2.7); ANION GAP 12 (5-15); ASPARTATE AMINO TRANSFERASE 13 U/L (5-40); CALCIUM 8.6 mg/dL (8.6-10.2); CARBON DIOXIDE 38 mEQ/L (20-30); CHLORIDE 90 mEQ/L (98-107); CREATININE 0.9 mg/dL (0.5-0.9); GLOMERULAR FILTRATION RATE > 60 mL/min (>60); HEMOLYSIS 1; MAGNESIUM 1.9 mg/dL (1.7-2.5); PHOSPHORUS 3.2 mg/dL (2.5-4.8); SODIUM 140 mEQ/L (135-145); TOTAL PROTEIN 7.3 g/dL (6.6-8.7)
[2016-12-13] MEDS: NovoLOG Insulin Flexpen SUBQ SCH ×4 (06:17→21:45)
[2016-12-13 07:07] LABS: TROPONIN I < 0.30 ng/mL (<=0.30)
[2016-12-13 08:00] VITALS: BP 147/110
--- NOTE | 2016-12-13 08:52 | Consultation ---
Consult Note Consult Note ID CONSULT: Dict# [id number] Assessment/Plan ASSESSMENT: 51 y/o female with: // Acute on chronic bronchitis - SCx NRF, C.albicans - CXR 12/11: Interval resolution of CHF. // Afebrile without leukocytosis ( on steroids ) // Acute on chronic hypoxemic and hypercarbic respiratory failure SP BiPAP - probable TOO, OHS // Morbid obesity // Tobacco abuse // No ABX allergies // Full Code PLAN: - continue levaquin, fluconazole d# 2 / 5 - taper steroids per pulm - f/u cultures - monitor CBC, temperatures - monitor BMP - monitor CXR - BiPAP prn - tobacco cessation, weight loss Thanks! Will follow SANDRA GRANADO Dec 13, 2016 08:52
[2016-12-13] MEDS: Lisinopril 10mg tab ORAL SCH (09:27)
[2016-12-13] MEDS: Sertraline 100mg tab ORAL SCH (09:28)
[2016-12-13] MEDS: Solu-MEDROL 125mg Inj IV SCH (09:28)
[2016-12-13] MEDS: Aspirin EC 81mg tab ORAL SCH (09:28)
[2016-12-13] MEDS: Heparin 5000 units/ml inj SUBQ SCH ×2 (09:30→21:44)
[2016-12-13 11:59] VITALS: BP 98/56
--- NOTE | 2016-12-13 12:50 | Pulmonology Progress Note ---
Assessment/Plan Problems: (1) Purulent bronchitis (2) CHF (congestive heart failure) (3) Respiratory failure with hypoxia (4) History of smoking (5) Sleep apnea (6) HTN (hypertension) (7) Morbid obesity (8) COPD exacerbation Assessment/Plan dc zosyn start levoflox and diflucan ( fungal in sputum and on steroids) improving decrease steroids check sputum cultures continue lasix check electrolytes cxr in am Subjective ROS Limited/Unobtainable: No Respiratory: Reports: dyspnea on exertion, pleuritic pain, productive cough, shortness of breath, sputum Allergies: Coded Allergies: Lettuce (Verified Allergy, Severe, Anaphylaxis, 06/24/15) Uncoded Allergies: seafood (Allergy, Severe, anaphylaxic shock, 12/11/16) all seafoo Objective Last 24 Hour Vital Signs Date Time Temp Pulse Resp B/P Pulse Ox O2 Delivery O2 Flow Rate FiO2 12/13/16 11:59 96.3 97 18 98/56 94 Nasal Cannula 2.0 12/13/16 10:35 98.6 12/13/16 09:27 147/110 12/13/16 08:00 96.6 98 18 147/110 92 Nasal Cannula 2.0 12/13/16 08:00 96.4 98 18 147/110 92 Room Air 12/13/16 07:50 Nasal Cannula 2.0 28 12/13/16 07:50 97 Nasal Cannula 2.0 28 12/13/16 07:50 98 18 Nasal Cannula 2.0 28 12/13/16 04:12 98.6 95 19 113/63 95 Room Air 12/13/16 03:45 92 12/13/16 01:12 80 17 98 Facial 30 12/13/16 00:19 98.4 90 18 147/88 94 Bi-pap 12/13/16 00:15 86 12/12/16 23:46 123 12/12/16 22:30 85 30 96 Facial 30 12/12/16 20:00 97.4 91 18 111/68 95 Nasal Cannula 2.0 12/12/16 19:40 96 Nasal Cannula 2.0 28 12/12/16 19:40 Nasal Cannula 2.0 28 12/12/16 19:40 82 18 Nasal Cannula 2.0 28 12/12/16 16:00 98.0 81 18 107/64 96 Nasal Cannula 2.0 Intake and Output 12/12/16 12/13/16 19:00 07:00 Intake Total 1151 ml 465 ml Output Total 1800 ml Balance -649 ml 465 ml Intake Oral 810 ml 300 ml IV Total 341 ml 165 ml Output Urine Total 1800 ml # Voids 7 General Appearance: no acute distress HEENT: normocephalic, atraumatic, PERRL Respiratory/Chest: chest wall non-tender, decreased breath sounds, accessory muscle use, rhonchi Breasts: no masses Cardiovascular: normal peripheral pulses, normal rate, regular rhythm, no JVD Abdomen: normal bowel sounds, soft, non tender, no organomegaly Genitourinary: normal external genitalia Extremities: no cyanosis Skin: no rash, no lesions Neurologic/Psychiatric: diaper folder II-XII grossly normal, no motor/sensory deficits Laboratory Tests 12/13/16 04:10: White Blood Count 9.2, Red Blood Count 5.52H, Hemoglobin 12.6, Hematocrit 42.7, Mean Corpuscular Volume 77L, Mean Corpuscular Hemoglobin 22.9L, Mean Corpuscular Hemoglobin Concent 29.6L, Red Cell Distribution Width 18.5H, Platelet Count 280, Mean Platelet Volume 6.1L, Neutrophils (%) (Auto) 63.1, Lymphocytes (%) (Auto) 26.0, Monocytes (%) (Auto) 9.9, Eosinophils (%) (Auto) 0.1, Basophils (%) (Auto) 0.9, Sodium Level 140, Potassium Level 3.0L, Chloride Level 90L, Carbon Dioxide Level 38H, Anion Gap 12, Blood Urea Nitrogen 17, Creatinine 0.9, Estimat Glomerular Filtration Rate > 60, Glucose Level 114H, Calcium Level 8.6, Phosphorus Level 3.2, Magnesium Level 1.9, Total Bilirubin 0.4, Aspartate Amino Transf (AST/SGOT) 13, Alanine Aminotransferase (ALT/SGPT) 14, Alkaline Phosphatase 60, Troponin I < 0.30, Total Protein 7.3, Albumin 3.9, Globulin 3.4, Albumin/Globulin Ratio 1.1 Current Medications Medications (Trade) Dose Ordered Sig/May Route PRN Reason Start Time Stop Time Status Last Admin Dose Admin Albuterol/ Ipratropium (DuoNeb 0.5-3(2.5)mg/3ml) 3 ml Q4H PRN HHN dyspnea 12/11/16 23:20 12/16/16 23:19 12/12/16 08:17 Aspirin (Ecotrin) 81 mg DAILY ORAL 12/12/16 09:00 01/11/17 08:59 12/13/16 09:28 Atorvastatin Calcium (Lipitor) 80 mg BEDTIME ORAL 12/12/16 21:00 01/11/17 20:59 12/12/16 20:37 Dextrose (Dextrose 50%) STAT PRN IV Hypoglycemia 12/11/16 23:17 01/10/17 23:16 Fluconazole/ Sodium Chloride 100 ml @ 100 mls/hr Q24H IV 12/12/16 12:00 12/19/16 11:59 12/13/16 11:53 Furosemide/ Dextrose (Lasix/D5W 100ml) 110 ml @ 11 mls/hr Q10H IV 12/12/16 17:00 01/11/17 16:59 12/13/16 03:22 Heparin Sodium (Porcine) (Heparin 5000 units/ml) 5,000 units EVERY 12 HOURS SUBQ 12/12/16 09:00 01/11/17 08:59 12/13/16 09:30 Insulin Aspart (NovoLOG) BEFORE MEALS AND HS SUBQ 12/12/16 06:30 01/11/17 06:29 12/13/16 11:54 Levofloxacin 100 ml @ 100 mls/hr Q24H IVPB 12/12/16 14:00 12/19/16 13:59 12/12/16 13:44 Lisinopril (Zestril) 10 mg DAILY ORAL 12/12/16 09:00 01/11/17 08:59 12/13/16 09:27 Lorazepam (Ativan 2mg/ml 1ml) 0.5 mg Q4H PRN IV For Anxiety 12/11/16 23:21 12/18/16 23:20 Methylprednisolone Sodium Succinate 60 mg 60 mg DAILY IV 12/13/16 09:00 01/12/17 08:59 12/13/16 09:28 Morphine Sulfate (Morphine Sulfate) 2 mg Q4H PRN IVP severe pain 7-10 12/11/16 23:21 12/18/16 23:20 12/13/16 10:05 Nicotine (Nicoderm) 1 patch Q24H TDERMAL 12/12/16 18:00 01/11/17 17:59 Nitroglycerin (Ntg) 0.4 mg Q5M X 3 DOSES PRN SL Prn Chest Pain 12/11/16 22:45 01/10/17 22:44 Ondansetron HCl (Zofran) 4 mg Q6H PRN IVP Nausea & Vomiting 12/11/16 23:22 01/10/17 23:21 Promethazine HCl/ Codeine (Phenergan with Codeine) 5 ml Q6H PRN ORAL cough 12/11/16 23:23 01/10/17 23:22 12/13/16 02:18 Sertraline HCl (Zoloft) 200 mg DAILY ORAL 12/12/16 09:00 01/11/17 08:59 12/13/16 09:28 Temazepam (Restoril) 15 mg HSPRN PRN ORAL Insomnia 12/11/16 23:24 12/18/16 23:23 Theophylline (Willard-Dur) 100 mg Q24H ORAL 12/12/16 21:00 01/11/17 20:59 12/12/16 20:37 LAMIN NEWTON Dec 13, 2016 12:50
[2016-12-13] MEDS ORDERED: Miralax 17gm pkt ORAL PRN (13:00)
[2016-12-13] MEDS: Docusate 100mg cap ORAL SCH ×2 (13:47→17:23)
[2016-12-13 16:00] VITALS: BP 106/60
--- NOTE | 2016-12-13 16:17 | Cardiology Progress Note ---
Assessment/Plan Status: stable, unchanged Status Narrative Cardiac status stable - mild dec LV systolic function, w/ EF 40s recently She has CP which is likely noncardiac, as she has had recent neg stress nuc test for ischemia. BP labile Assessment/Plan Continue lasix, lisinopril for LV systolic dysfunction Consider inc lisinopril to 20 if persistent SBP over 140 or DBP over 90 continue steroids, bronchodiilators, abx for bronchitis per pulm Followup labs in am. continue to follow i/os , wts. Subjective ROS Limited/Unobtainable: No Subjective Pt continues w/ cough/ congestion Objective Last 24 Hour Vital Signs Date Time Temp Pulse Resp B/P Pulse Ox O2 Delivery O2 Flow Rate FiO2 12/13/16 12:00 96 12/13/16 11:59 96.3 97 18 98/56 94 Nasal Cannula 2.0 12/13/16 10:35 98.6 12/13/16 09:27 147/110 12/13/16 08:00 96.6 98 18 147/110 92 Nasal Cannula 2.0 12/13/16 08:00 109 12/13/16 08:00 96.4 98 18 147/110 92 Room Air 12/13/16 07:50 Nasal Cannula 2.0 28 12/13/16 07:50 97 Nasal Cannula 2.0 28 12/13/16 07:50 98 18 Nasal Cannula 2.0 28 12/13/16 04:12 98.6 95 19 113/63 95 Room Air 12/13/16 03:45 92 12/13/16 01:12 80 17 98 Facial 30 12/13/16 00:19 98.4 90 18 147/88 94 Bi-pap 12/13/16 00:15 86 12/12/16 23:46 123 12/12/16 22:30 85 30 96 Facial 30 12/12/16 20:00 97.4 91 18 111/68 95 Nasal Cannula 2.0 12/12/16 19:40 96 Nasal Cannula 2.0 28 12/12/16 19:40 Nasal Cannula 2.0 28 12/12/16 19:40 82 18 Nasal Cannula 2.0 28 General Appearance: WD/WN, mild distress, obese Neck: non-tender, supple, no JVD Rhythm: NSR Cardiovascular: normal rate, regular rhythm, no gallop/murmur Respiratory/Chest: other - bilat expir wheezes and few rhonchi Abdomen: soft, no mass Extremities: non-tender, trace edema Intake and Output 12/12/16 12/13/16 19:00 07:00 Intake Total 1151 ml 465 ml Output Total 1800 ml Balance -649 ml 465 ml Intake Oral 810 ml 300 ml IV Total 341 ml 165 ml Output Urine Total 1800 ml # Voids 7 Laboratory Tests Test 12/13/16 04:10 White Blood Count 9.2 K/UL (4.8-10.8) Red Blood Count 5.52 M/UL (4.20-5.40) H Hemoglobin 12.6 G/DL (12.0-16.0) Hematocrit 42.7 % (37.0-47.0) Mean Corpuscular Volume 77 FL (80-99) L Mean Corpuscular Hemoglobin 22.9 PG (27.0-31.0) L Mean Corpuscular Hemoglobin Concent 29.6 G/DL (32.0-36.0) L Red Cell Distribution Width 18.5 % (11.6-14.8) H Platelet Count 280 K/UL (150-450) Mean Platelet Volume 6.1 FL (6.5-10.1) L Neutrophils (%) (Auto) 63.1 % (45.0-75.0) Lymphocytes (%) (Auto) 26.0 % (20.0-45.0) Monocytes (%) (Auto) 9.9 % (1.0-10.0) Eosinophils (%) (Auto) 0.1 % (0.0-3.0) Basophils (%) (Auto) 0.9 % (0.0-2.0) Sodium Level 140 mEQ/L (135-145) Potassium Level 3.0 mEQ/L (3.4-4.9) L Chloride Level 90 mEQ/L (98-107) L Carbon Dioxide Level 38 mEQ/L (20-30) H Anion Gap 12 (5-15) Blood Urea Nitrogen 17 mg/dL (7-23) Creatinine 0.9 mg/dL (0.5-0.9) Estimat Glomerular Filtration Rate > 60 mL/min (>60) Glucose Level 114 mg/dL (74-106) H Calcium Level 8.6 mg/dL (8.6-10.2) Phosphorus Level 3.2 mg/dL (2.5-4.8) Magnesium Level 1.9 mg/dL (1.7-2.5) Total Bilirubin 0.4 mg/dL (0.0-1.2) Aspartate Amino Transf (AST/SGOT) 13 U/L (5-40) Alanine Aminotransferase (ALT/SGPT) 14 U/L (3-33) Alkaline Phosphatase 60 U/L (35-104) Troponin I < 0.30 ng/mL (<=0.30) Total Protein 7.3 g/dL (6.6-8.7) Albumin 3.9 g/dL (3.5-5.2) Globulin 3.4 g/dL Albumin/Globulin Ratio 1.1 (1.0-2.7) GIULIA HAMILTON Dec 13, 2016 16:17
--- NOTE | 2016-12-13 19:41 | Cardiology Report ---
APPROVED REPORT EKG Measurement Heart [id number] MI [id number] Sinus rhythm with sinus arrhythmia with occasional premature ventricular complexes Cannot rule out Inferior infarct, age undetermined T wave abnormality, consider anterior ischemia Abnormal ECG
--- NOTE | 2016-12-13 19:49 | Cardiology Report ---
APPROVED REPORT EKG Measurement Heart [id number] MI [id number] Normal sinus rhythm T wave abnormality, consider anterolateral ischemia Prolonged QT Abnormal ECG
[2016-12-13 20:00] VITALS: BP 108/68
[2016-12-13] MEDS: Atorvastatin 80mg tab ORAL SCH (21:37)
[2016-12-13] MEDS: Theophylline ER 100mg ORAL SCH (21:37)
--- NOTE | 2016-12-14 00:08 | Consultation ---
DATE OF CONSULTATION: 12/13/2016 INFECTIOUS DISEASE CONSULTATION REQUESTING PHYSICIAN: Win Ro M.D. REASON FOR CONSULTATION: Acute bronchitis. HISTORY OF PRESENT ILLNESS: This is a 51-year-old morbidly obese female smoker, admitted on 12/09/2016 with shortness of breath and cough. The cough is now productive of purulent brown phlegm. Chest x-ray on 12/11/2016 shows interval resolution of CHF. Sputum culture is growing Veronica albicans and normal respiratory evan. She is afebrile without leukocytosis, on Levaquin and fluconazole day #2, status post Zosyn. She is also on steroids. Infectious Disease now consulted to assist in management. PAST MEDICAL HISTORY: 1. Hypertension. 2. Hyperlipidemia. 3. Morbid obesity. 4. Depression. 5. CHF. 6. GERD. PAST SURGICAL HISTORY: None. ALLERGIES: 1. Lettuce. 2. Sea food. MEDICATIONS: 1. Levaquin. 2. Fluconazole. 3. Status post Zosyn. 4. Solu-Medrol. 5. Lasix. 6. Lipitor. 7. Aspirin. 8. Lisinopril. 9. Zoloft. SOCIAL HISTORY: The patient is an active smoker. FAMILY HISTORY: Noncontributory REVIEW OF SYSTEMS: As per history of present illness. Ten systems were reviewed and all pertinent positives and negatives noted. PHYSICAL EXAMINATION: GENERAL: No apparent distress. Nontoxic appearing. Morbidly obese. VITAL SIGNS: Maximum temperature 99.1, blood pressure 113/63, heart rate in the 90s, respiratory rate 19, and saturating 95% on room air. CARDIOVASCULAR: Regular rate and rhythm. No murmurs. PULMONARY: Coarse breath sounds bilaterally. ABDOMEN: Bowel sounds present. Soft, nondistended, and nontender. EXTREMITIES: No edema. NEUROLOGIC: Alert and oriented x3, nonfocal. LABORATORY DATA: White blood cell count 9.2, hemoglobin 12.6, and platelets 280,00. Sodium 140, potassium 3, chloride 90, bicarbonate 38, BUN 17, and creatinine 0.9. Liver function tests within normal limits. Troponin negative x3. BNP 478. Lactic acid 0.9. Urinalysis negative. MICROBIOLOGY: 1. On 12/10/2016, sputum culture, normal respiratory evan and Veronica albicans. 2. On 12/09/2016, blood culture, no growth to date. IMAGING: On 12/11/2016, chest x-ray, interval resolution of congestive heart failure. ASSESSMENT: 1. Acute on chronic bronchitis. Sputum culture is growing normal respiratory evan and Veronica albicans. Chest x-ray from 12/11/2016 shows interval resolution of congestive heart failure. 2. Afebrile without leukocytosis, on steroids. 3. Acute on chronic hypoxemic and hypercarbic respiratory failure, status post BiPAP with probable obstructive sleep apnea and obesity hypoventilation syndrome. 4. Morbid obesity. 5. Tobacco abuse. 6. No antibiotic allergies. 7. Full Code. PLAN: 1. Continue Levaquin and fluconazole day #2 of 5. 2. Taper steroids per pulmonary. 3. Follow up cultures. 4. Monitor CBC and temperatures. 5. Monitor BMP. 6. Monitor chest x-ray. 7. BiPAP as needed. 8. Tobacco cessation and weight loss. Thank you. We will follow. Goldy Euceda M.D. DR: Mariella JOB#: [id number] CC: Win Ro M.D.; Fax#: [phone] Small, M.D. ; Fax#: [phone] Alborzi, M.D; Fax#: [phone]
[2016-12-14 00:24] VITALS: BP 110/65
[2016-12-14] MEDS: Morphine Sulfate 2mg/ml Inj IVP PRN (03:29)
[2016-12-14 04:13] VITALS: BP 117/69
[2016-12-14] MEDS: LORazepam Inj 2mg/ml 1ml IV PRN ×2 (05:50→11:41)
[2016-12-14] MEDS: NovoLOG Insulin Flexpen SUBQ SCH ×2 (06:30→11:38)
[2016-12-14 08:11] VITALS: BP 105/60
[2016-12-14 08:17] LABS: BASOPHILS % (AUTO) 0.8 % (0.0-2.0); EOSINOPHILS % (AUTO) 0.4 % (0.0-3.0); LYMPHOCYTES % (AUTO) 33.6 % (20.0-45.0); MEAN CORPUSCULAR HEMOGLOBIN 22.9 PG (27.0-31.0); MEAN CORPUSCULAR HGB CONC 29.7 G/DL (32.0-36.0); MEAN CORPUSCULAR VOLUME 77 FL (80-99); MEAN PLATELET VOLUME 6.6 FL (6.5-10.1); MONOCYTES % (AUTO) 8.5 % (1.0-10.0); NEUTROPHILS % (AUTO) 56.8 % (45.0-75.0); PLATELET COUNT 273 K/UL (150-450); RED BLOOD COUNT 5.48 M/UL (4.20-5.40); RED CELL DISTRIBUTION WIDTH 18.2 % (11.6-14.8); WHITE BLOOD COUNT 12.3 K/UL (4.8-10.8)
[2016-12-14 08:34] LABS: ALANINE AMINOTRANSFERASE 12 U/L (3-33); ANION GAP 11 (5-15); ASPARTATE AMINO TRANSFERASE 12 U/L (5-40); CALCIUM 8.3 mg/dL (8.6-10.2); CARBON DIOXIDE 38 mEQ/L (20-30); CHLORIDE 92 mEQ/L (98-107); GLOMERULAR FILTRATION RATE > 60 mL/min (>60); HEMOLYSIS 3; POTASSIUM 3.1 mEQ/L (3.4-4.9); SODIUM 141 mEQ/L (135-145); TOTAL PROTEIN 7.1 g/dL (6.6-8.7)
[2016-12-14] MEDS: Lisinopril 10mg tab ORAL SCH (09:00)
[2016-12-14] MEDS: Docusate 100mg cap ORAL SCH ×2 (09:04→13:32)
[2016-12-14] MEDS: Aspirin EC 81mg tab ORAL SCH (09:04)
[2016-12-14] MEDS: Sertraline 100mg tab ORAL SCH (09:04)
[2016-12-14] MEDS: Solu-MEDROL 125mg Inj IV SCH (09:04)
[2016-12-14] MEDS: Heparin 5000 units/ml inj SUBQ SCH (09:11)
--- NOTE | 2016-12-14 09:23 | Cardiology Report ---
APPROVED REPORT EXAM: Two-dimensional and M-mode echocardiogram with Doppler and color Doppler. INDICATION Chest Pain M-Mode DIMENSIONS IVSd1.4 (0.7-1.1cm)Left Atrium (MM)5.1 (1.6-4.0cm) LVDd4.7 (3.5-5.6cm)Aortic Root3.3 (2.0-3.7cm) IVSs2.1 cm LVDs3.1 (2.5-4.0cm) PWs1.8 cm Technically difficult study due to poor acoustic windows, patient size, and position. Normal left ventricular chamber size, systolic function and wall motion. Left ventricular ejection fraction estimated to be 55%. Mild left ventricular hypertrophy. Left atrium is at upper normal limit. Right atrium is at upper normal limit. Right ventricular size is within normal limits. Mild focal aortic valve sclerosis with adequate cusp excursion Mildly thickened mitral valve leaflets with normal excursion. Mild mitral annulus and aortic root calcification. Pulmonic valve not well visualized. Normal tricuspid valve structure. IVC not obtainable. A color flow and spectral Doppler study was performed and revealed: No aortic regurgitation. Mild mitral regurgitation. Mitral inflow indicate normal left ventricular diastolic function. Trace tricuspid regurgitation. Tricuspid systolic velocities suggests peak right ventricular systolic pressure of 4mmHg.
--- NOTE | 2016-12-14 10:30 | Diagnostic Imaging Report ---
Indications: DYSPNEA Technique: Portable AP chest Findings: Comparison: 12/11/16 Suboptimal inspiration, lordotic projection, suboptimal image quality due to patient body habitus all again limit evaluation. Cardiac silhouette remains enlarged. Mild bilateral interstitial prominence persists. Linear densities have developed in both midlung regions. No obvious pleural abnormalities demonstrated. IMPRESSION: Development versus better visualization of bilateral midlung subsegmental atelectasis versus scarring, versus right minor fissure pleural thickening No other change from 2 days prior
--- NOTE | 2016-12-14 10:51 | Diagnostic Imaging Report ---
Indications: DYSPNEA Technique: Portable AP chest Findings: Comparison: 12/13/16 Cardiac silhouette remains enlarged. Pulmonary vasculature remains within normal limits. Prominence of right minor fissure decreased. Persistent subsegmental atelectasis versus scarring left midlung. No new abnormality. IMPRESSION: Decrease in prominence of right midlung subsegmental atelectasis versus pleural fissure No other change from one day prior
[2016-12-14 11:32] VITALS: BP 96/60
--- NOTE | 2016-12-14 12:37 | Pulmonology Progress Note ---
Assessment/Plan Problems: (1) Purulent bronchitis (2) CHF (congestive heart failure) (3) Respiratory failure with hypoxia (4) History of smoking (5) Sleep apnea (6) HTN (hypertension) (7) Morbid obesity (8) COPD exacerbation Assessment/Plan much better going home today improving decrease steroids check sputum cultures continue lasix check electrolytes cxr totally clear Subjective ROS Limited/Unobtainable: No Interval Events: less short of breath HEENT: Repors: no symptoms Respiratory: Reports: no symptoms Cardiovascular: Reports: no symptoms Gastrointestinal/Abdominal: Reports: no symptoms Allergies: Coded Allergies: Lettuce (Verified Allergy, Severe, Anaphylaxis, 06/24/15) Uncoded Allergies: seafood (Allergy, Severe, anaphylaxic shock, 12/11/16) all seafoo Objective Last 24 Hour Vital Signs Date Time Temp Pulse Resp B/P Pulse Ox O2 Delivery O2 Flow Rate FiO2 12/14/16 11:32 96.8 108 18 96/60 100 Bi-pap 30 12/14/16 09:00 105/60 12/14/16 08:11 97.0 103 20 105/60 97 Nasal Cannula 2.0 12/14/16 08:00 99 12/14/16 07:03 Nasal Cannula 2.0 28 12/14/16 07:03 98 Nasal Cannula 2.0 28 12/14/16 07:03 109 18 Nasal Cannula 2.0 28 12/14/16 04:13 97.8 92 20 117/69 96 Bi-pap 12/14/16 04:00 94 12/14/16 01:15 90 24 98 Facial 30 12/14/16 00:24 98.6 89 19 110/65 96 Bi-pap 12/13/16 23:46 87 12/13/16 22:42 89 34 100 Facial 30 12/13/16 20:00 96.8 95 20 108/68 Nasal Cannula 2.0 95 12/13/16 19:00 97 Nasal Cannula 2.0 28 12/13/16 19:00 Nasal Cannula 2.0 28 12/13/16 19:00 107 16 Nasal Cannula 2.0 28 12/13/16 16:00 96.6 101 20 106/60 Nasal Cannula 2.0 97 Intake and Output 12/13/16 12/14/16 19:00 07:00 Intake Total 790 ml 721 ml Balance 790 ml 721 ml Intake Oral 480 ml 600 ml IV Total 310 ml 121 ml # Voids 3 6 General Appearance: WD/WN HEENT: normocephalic, atraumatic Respiratory/Chest: chest wall non-tender, lungs clear Cardiovascular: normal peripheral pulses, normal rate Abdomen: normal bowel sounds, soft, non tender, no organomegaly, non distended Extremities: no cyanosis 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 Laboratory Tests 12/14/16 07:30: White Blood Count 12.3H, Red Blood Count 5.48H, Hemoglobin 12.5, Hematocrit 42.3 , Mean Corpuscular Volume 77L, Mean Corpuscular Hemoglobin 22.9L, Mean Corpuscular Hemoglobin Concent 29.7L, Red Cell Distribution Width 18.2H, Platelet Count 273, Mean Platelet Volume 6.6, Neutrophils (%) (Auto) 56.8, Lymphocytes (%) (Auto) 33.6, Monocytes (%) (Auto) 8.5, Eosinophils (%) (Auto) 0.4, Basophils (%) (Auto) 0.8, Sodium Level 141, Potassium Level 3.1L, Chloride Level 92L, Carbon Dioxide Level 38H, Anion Gap 11, Blood Urea Nitrogen 27H, Creatinine 1.0H, Estimat Glomerular Filtration Rate > 60, Glucose Level 108H, Calcium Level 8.3L, Total Bilirubin 0.2, Aspartate Amino Transf (AST/SGOT) 12, Alanine Aminotransferase (ALT/SGPT) 12, Alkaline Phosphatase 58, Total Protein 7.1, Albumin 3.7, Globulin 3.4, Albumin/Globulin Ratio 1.0 Current Medications Medications (Trade) Dose Ordered Sig/May Route PRN Reason Start Time Stop Time Status Last Admin Dose Admin Albuterol/ Ipratropium (DuoNeb 0.5-3(2.5)mg/3ml) 3 ml Q4H PRN HHN dyspnea 12/11/16 23:20 12/16/16 23:19 12/12/16 08:17 Aspirin (Ecotrin) 81 mg DAILY ORAL 12/12/16 09:00 01/11/17 08:59 12/14/16 09:04 Atorvastatin Calcium (Lipitor) 80 mg BEDTIME ORAL 12/12/16 21:00 01/11/17 20:59 12/13/16 21:37 Dextrose (Dextrose 50%) STAT PRN IV Hypoglycemia 12/11/16 23:17 01/10/17 23:16 Docusate Sodium (Colace) 100 mg THREE TIMES A DAY ORAL 12/13/16 13:00 01/12/17 12:59 12/14/16 09:04 Fluconazole/ Sodium Chloride 100 ml @ 100 mls/hr Q24H IV 12/12/16 12:00 12/19/16 11:59 12/14/16 12:10 Furosemide/ Dextrose (Lasix/D5W 100ml) 110 ml @ 11 mls/hr Q10H IV 12/12/16 17:00 01/11/17 16:59 12/14/16 09:05 Heparin Sodium (Porcine) (Heparin 5000 units/ml) 5,000 units EVERY 12 HOURS SUBQ 12/12/16 09:00 01/11/17 08:59 12/14/16 09:11 Insulin Aspart (NovoLOG) BEFORE MEALS AND HS SUBQ 12/12/16 06:30 01/11/17 06:29 12/14/16 11:38 Levofloxacin 100 ml @ 100 mls/hr Q24H IVPB 12/12/16 14:00 12/19/16 13:59 12/13/16 13:48 Lisinopril (Zestril) 10 mg DAILY ORAL 12/12/16 09:00 01/11/17 08:59 12/13/16 09:27 Lorazepam (Ativan 2mg/ml 1ml) 0.5 mg Q4H PRN IV For Anxiety 12/11/16 23:21 12/18/16 23:20 12/14/16 11:41 Methylprednisolone Sodium Succinate 60 mg 60 mg DAILY IV 12/13/16 09:00 01/12/17 08:59 12/14/16 09:04 Morphine Sulfate (Morphine Sulfate) 2 mg Q4H PRN IVP severe pain 7-10 12/11/16 23:21 12/18/16 23:20 12/14/16 03:29 Nicotine (Nicoderm) 1 patch Q24H TDERMAL 12/12/16 18:00 01/11/17 17:59 Nitroglycerin (Ntg) 0.4 mg Q5M X 3 DOSES PRN SL Prn Chest Pain 12/11/16 22:45 01/10/17 22:44 Ondansetron HCl (Zofran) 4 mg Q6H PRN IVP Nausea & Vomiting 12/11/16 23:22 01/10/17 23:21 Polyethylene Glycol (Miralax) 17 gm DAILYPRN PRN ORAL Constipation 12/13/16 13:00 01/12/17 12:59 12/14/16 03:29 Promethazine HCl/ Codeine (Phenergan with Codeine) 5 ml Q6H PRN ORAL cough 12/11/16 23:23 01/10/17 23:22 12/13/16 21:36 Sertraline HCl (Zoloft) 200 mg DAILY ORAL 12/12/16 09:00 01/11/17 08:59 12/14/16 09:04 Temazepam (Restoril) 15 mg HSPRN PRN ORAL Insomnia 12/11/16 23:24 12/18/16 23:23 Theophylline (Willard-Dur) 100 mg Q24H ORAL 12/12/16 21:00 01/11/17 20:59 12/13/16 21:37 LAMIN NEWTON Dec 14, 2016 12:37
[2016-12-14] MEDS ORDERED: LEVOFLOXACIN500 MG ORAL (13:12)
[2016-12-14] MEDS ORDERED: NS 275ml ONE (14:40)
--- NOTE | 2016-12-15 14:34 | Discharge Summary ---
Discharge Summary Hospital Course Date of Admission Dec 09, 2016 at 10:19 Date of Discharge Dec 14, 2016 at 14:41 Admitting Diagnosis COPD EXACEBRATION HPI Christina Jimenez is a 51 year old female who was admitted on Dec 09, 2016 at 10:19 for Chronic Obstructive Pulmonary Disease Exacerbation Hospital Course dc summary#[id number] Discharge Medications Continued Medications: Acetaminophen (Tylenol) 325 Mg Tab 650 MG ORAL Q6H PRN for For Pain, #30 TAB 0 Refills Albuterol Sulfate* (Proair Hfa*) 8.5 Gm Hfa.aer.ad 2 PUFFS INH Q6H, #8.5 GM 0 Refills Aspirin* (Aspir 81*) 81 Mg Tablet.dr 81 MG ORAL DAILY, TAB Docusate Sodium* (Colace*) 100 Mg Capsule 100 MG ORAL DAILY, CAP Furosemide* (Lasix*) 20 Mg Tablet 20 MG ORAL BID, TAB Hydroxyzine Pamoate* (Hydroxyzine Pamoate*) 100 Mg Capsule 50 MG ORAL HS, #20 TAB 0 Refills Isosorbide Dinitrate (Isosorbide Dinitrate*) 5 Mg Tablet 10 MG ORAL BID, #30 TAB 0 Refills Levalbuterol Tartrate (Xopenex Hfa) 15 Gm Hfa.aer.ad 15 GM IH EVERY 4 HOURS PRN for Shortness of Breath Levofloxacin (Levofloxacin*) 500 Mg Tablet 500 MG ORAL DAILY for 5 Days, TAB Nitroglycerin (Nitroglycerin) 2.5 Mg Capsule.er 0.4 MG SL, CAP Ranitidine Hcl (Ranitidine Hcl) 150 Mg Capsule 150 MG ORAL BID PRN for GASTRITIS, CAP Sertraline Hcl* (Zoloft*) 100 Mg Tablet 200 MG ORAL DAILY, TAB Tiotropium Smiley* (Spiriva*) 18 Mcg Cap.w.dev 1 PUFF INH DAILY, EA Ziprasidone Hcl* (Geodon*) 40 Mg Capsule 40 MG ORAL TWICE A DAY, #60 CAP 0 Refills Discharge Discharge Disposition Patient was discharged to Home with Home Health(06) Discharge Diagnoses: Discharge Instructions Discharge Instructions Special Instructions I have been assigned to complete a D/C Summary on this account. I was not involved in the patient management Arminda Arnold NP (Vanchtein) Dec 15, 2016 14:34
--- NOTE | 2016-12-16 09:28 | Discharge Summary 2 SIG ---
DATE OF ADMISSION: 12/09/2016 DATE OF DISCHARGE: 12/14/2016 REASON FOR ADMISSION: The patient presented to the emergency room with complaint of shortness of breath for three days. The patient has underlying history of COPD and prior smoking. The patient reported productive cough and chest tightness as well as wheezing, but no hemoptysis. Denied fevers or chills. No chest pain. No recent sick contacts. No traveling. Chest x-ray with evidence of the CHF. No leukocytosis. The patient admitted to telemetry floor. Upon presentation, the patient was hypoxemic and required placement of non rebreathing mask. ADMITTING DIAGNOSES: 1. Acute hypoxemic respiratory failure. 2. Acute chronic obstructive pulmonary disease exacerbation. 3. Purulent bronchitis. 4. Congestive heart failure exacerbation. 5. Obstructive sleep apnea. 6. History of smoking. HOSPITAL STAY: The patient admitted to telemetry floor. The patient started on Lasix drip. Intake and output, renal parameters, and electrolytes were closely monitored. Echocardiogram revealed preserved ejection fraction 55 to 60%. Right ventricular systolic pressure of 14 and mild LVH. Initial chest x-ray revealed CHF. Follow up chest x-ray revealed resolution of CHF. The patient was on empiric antibiotics. Blood culture negative. Sputum culture positive for Veronica. ID followed the patient. DVT and GI prophylaxis provided. Aspirin resumed. Blood pressure was stabl with current antihypertensive regimen. Blood sugar was stable. Hemoglobin A1c at goal- 5.8. Cardiology also followed the patient. Sinker Winder recommended continue Lasix and lisinopril for prior mild LVH systolic dysfunction. Recent ejection fraction 40%, currently better- 55. Cardio recommended considering to increase lisinopril. Troponin x2 were negative. EKG no ST changes. No ectopy. The patient was ruled out for acute coronary syndrome. Chest pain is likely noncardiac. She has recent negative nuclear stress test, which was negative for ischemia. In terms of her pulmonary issues, supplemental oxygen, pulmonary toilet with handheld nebulizing, and CPT provided as needed. The patient was on empiric antibiotics. Sputum culture positive for Veronica. The patient was on IV steroids, which were gradually tapered and discontinued prior to discharge. Antitussive provided as needed. Continue theophylline. Resume inhalers upon discharge. Continue antibiotics for five additional days. Upon discharge, the patient was able gradually weaned from non rebreathing mask to oxygen via nasal cannula. At night, the patient was on the BiPAP. Recommended to use CPAP she has at home at night time at least for four hours nightly. The patient's condition improved. Her pulmonary status was stable. She was intermittently on room air versus nasal cannula. No fevers. No chest tightness. No wheezing. Breathing without difficulties, Significantly decreased cough. Potassium replaced prior to discharge. Renal parameters were stable. Urinalysis was negative. There was a mild leukocytosis likely reactive secondary to steroids. The patient was stable for discharge. DISCHARGE MEDICATIONS: See medication reconciliation list. FINAL DIAGNOSES: 1. Acute hypoxemic respiratory failure, resolved. 2. Acute chronic obstructive pulmonary disease exacerbation, improved. 3. Purulent bronchitis. 4. Diastolic congestive heart failure exacerbation. 5. Diabetes mellitus, stable. 6. Hypertension, stable. 7. Obstructive sleep apnea. 8. Morbid obesity. 9. History of smoking. DISCHARGE MEDICATIONS: See medication reconciliation list. DISCHARGE INSTRUCTIONS: The patient to follow up with the primary medical doctor. Continue antibiotics for five days. Win Ro M.D. I have been assigned to dictate discharge summary on this account and I was not involved in the patient's management. Arminda GilbertCatskill Regional Medical CenterTerri N.PJohnie DR: Ben JOB#: [id number] CC: MARGUERITE
== END 2016-12-14 14:41 | disposition home health service (06) | DRG 291 ==
LOC: EDBD 09:15 → EMR 09:45 → EDBEDREQSVC 10:16 → EDBEDREQ 10:16 → 2W 10:19 → EDBEDREQ 11:24 → 2E 12-11 22:45
PROC: 5A09457 Assistance with Respiratory Ventilation, 24-96 Consecutive Hours, Continuous Positive Airway Pressure (ICD-10-PCS; principal; 2016-12-09)
DX: I11.0 Hypertensive heart disease with heart failure (principal); J96.21 Acute and chronic respiratory failure with hypoxia; J96.22 Acute and chronic respiratory failure with hypercapnia; J44.1 Chronic obstructive pulmonary disease with (acute) exacerbation; Z68.42 Body mass index [BMI] 45.0-49.9, adult; J44.0 Chronic obstructive pulmonary disease with (acute) lower respiratory infection; E66.01 Morbid (severe) obesity due to excess calories; I50.33 Acute on chronic diastolic (congestive) heart failure; G47.33 Obstructive sleep apnea (adult) (pediatric); E78.5 Hyperlipidemia, unspecified; D25.9 Leiomyoma of uterus, unspecified; J20.9 Acute bronchitis, unspecified; K21.9 Gastro-esophageal reflux disease without esophagitis; Z87.891 Personal history of nicotine dependence
CPT/HCPCS: 36415; 71010; 80053; 80061; 81003; 82550; 82553; 82962; 83605; 83735; 83880; 84100; 84484; 85007; 85025; 87040; 87070; 87205; 93005; 93306; 94640; 94660; 94664; 94760; J1815; J7620; J8499

== ENCOUNTER 2017-01-18 15:19 | Inpatient (IN) | payer MEDICARE, OTHER ==
[~2017-01-18] VITALS: Ht 162.6 cm; Wt 134.3 kg
[~2017-01-18 15:19] MED LIST changes: +IBUPROFEN200 MG ORAL; +LEVOFLOXACIN500 MG ORAL; +NITROGLYCERIN2.5 M1 SL; +PROAIR HFA8.5 GM INH; +TRAMADOL HCL100 M2 ORAL
[2017-01-18 15:30] VITALS: BP 133/49
[2017-01-18] MEDS ORDERED: Albuterol ud Inhalation HHN ONE (15:45)
[2017-01-18 16:06] LABS: ALANINE AMINOTRANSFERASE 6 U/L (3-33); ALBUMIN/GLOBULIN RATIO 1.3 (1.0-2.7); ANION GAP 13 (5-15); ASPARTATE AMINO TRANSFERASE 10 U/L (5-40); CALCIUM 8.8 mg/dL (8.6-10.2); CARBON DIOXIDE 33 mEQ/L (20-30); CHLORIDE 97 mEQ/L (98-107); CREATININE 0.7 mg/dL (0.5-0.9); GLOMERULAR FILTRATION RATE > 60 mL/min (>60); HEMOLYSIS 9; POTASSIUM 3.2 mEQ/L (3.4-4.9); SODIUM 143 mEQ/L (135-145); TOTAL PROTEIN 6.5 g/dL (6.6-8.7); TROPONIN I < 0.30 ng/mL (<=0.30)
[2017-01-18 16:10] LABS: BASOPHILS % (AUTO) 1.2 % (0.0-2.0); EOSINOPHILS % (AUTO) 2.2 % (0.0-3.0); LYMPHOCYTES % (AUTO) 32.8 % (20.0-45.0); MEAN CORPUSCULAR HEMOGLOBIN 22.5 PG (27.0-31.0); MEAN CORPUSCULAR HGB CONC 29.5 G/DL (32.0-36.0); MEAN CORPUSCULAR VOLUME 76 FL (80-99); MEAN PLATELET VOLUME 7.1 FL (6.5-10.1); MONOCYTES % (AUTO) 3.7 % (1.0-10.0); NEUTROPHILS % (AUTO) 60.2 % (45.0-75.0); PLATELET COUNT 308 K/UL (150-450); PROTHROMBIN TIME 9.3 SEC (9.30-11.50); RED BLOOD COUNT 4.86 M/UL (4.20-5.40); RED CELL DISTRIBUTION WIDTH 19.7 % (11.6-14.8); WHITE BLOOD COUNT 10.3 K/UL (4.8-10.8)
--- NOTE | 2017-01-18 16:20 | Emergency Room Report ---
History of Present Illness General Chief Complaint: Dyspnea/Respdistress Source: Patient, EMS Present Illness HPI Patient presents with complaints of shortness of breath Increased cough and congestion Patient reports taking an extra Lasix which did help somewhat Denies any back or flank pain patient also feels she had increased swelling in the facial area and also the hands Denies any recent fevers denies any travel denies any pleurisy Patient has a history of COPD and CHF Allergies: Coded Allergies: Lettuce (Verified Allergy, Severe, Anaphylaxis, 06/24/15) Uncoded Allergies: seafood (Allergy, Severe, anaphylaxic shock, 12/11/16) all seafoo Patient History Past Medical History: see triage record Pertinent Family History: none Reviewed Nursing Documentation: PMH: Agreed, PSxH: Agreed Nursing Documentation-PMH Past Medical History: No History, Except For Hx Cardiac Problems: Yes - CHF; High cholesterol; Uterine fibroid Hx Hypertension: Yes Hx COPD: Yes Hx Diabetes: Yes Hx Cancer: No Hx Gastrointestinal Problems: Yes - GERD Hx Neurological Problems: No Hx Dizziness: Yes Hx Headaches: Yes Review of Systems All Other Systems: negative except mentioned in HPI Physical Exam Vital Signs Date Time Temp Pulse Resp B/P Pulse Ox O2 Delivery O2 Flow Rate FiO2 01/18/17 15:14 81 20 133/49 100 Room Air 01/18/17 15:30 2.0 01/18/17 15:55 28 Sp02 EP Interpretation: reviewed, normal General Appearance: mild distress - Appear short of breath Head: normocephalic, atraumatic Eyes: bilateral eye EOMI, bilateral eye PERRL, bilateral eye other - Patient does have puffiness bilaterally in the upper and lower eyelids ENT: hearing grossly normal, TMs + canals normal, uvula midline, other - Gingival erythema and appearance of gingivitis Neck: full range of motion, supple, no meningismus, no bony tend Respiratory: no retraction, no accessory muscle use, crackles - Diffusely Cardiovascular #1: normal peripheral pulses, regular rate, rhythm, no gallop, no JVD, no murmur Gastrointestinal: normal bowel sounds, non tender, soft, no mass, no organomegaly, non-distended, no guarding, no hernia, no pulsatile mass, no rebound Genitourinary: no CVA tenderness Musculoskeletal: normal inspection, other - Tender on the right thumb but no obvious swelling Neurologic: oriented x3, responsive, university extension specialist III-XII nml as tested, motor strength/ tone normal, sensory intact Psychiatric: mood/affect normal Skin: warm/dry, other - Edema on both lower extremities Lymphatic: normal inspection, no adenopathy Medical Decision Making Diagnostic Impression: Primary Impression: Dyspnea ER Course Patient is a fairly complex patient with multiple differential to consideration including but not limited to cardiac cardiopulmonary and vascular emergencies Patient's x-ray is concerning for cardiomegaly and congestion Patient was provided with diuretics breathing treatments were also provided Patient has done better throughout her stay requires admission for further care Labs Test 01/18/17 15:42 White Blood Count 10.3 K/UL (4.8-10.8) Red Blood Count 4.86 M/UL (4.20-5.40) Hemoglobin 10.9 G/DL (12.0-16.0) Hematocrit 37.0 % (37.0-47.0) Mean Corpuscular Volume 76 FL (80-99) Mean Corpuscular Hemoglobin 22.5 PG (27.0-31.0) Mean Corpuscular Hemoglobin Concent 29.5 G/DL (32.0-36.0) Red Cell Distribution Width 19.7 % (11.6-14.8) Platelet Count 308 K/UL (150-450) Mean Platelet Volume 7.1 FL (6.5-10.1) Neutrophils (%) (Auto) 60.2 % (45.0-75.0) Lymphocytes (%) (Auto) 32.8 % (20.0-45.0) Monocytes (%) (Auto) 3.7 % (1.0-10.0) Eosinophils (%) (Auto) 2.2 % (0.0-3.0) Basophils (%) (Auto) 1.2 % (0.0-2.0) Prothrombin Time 9.3 SEC (9.30-11.50) Prothromb Time International Ratio 1.0 (0.9-1.1) Activated Partial Thromboplast Time 23 SEC (23-33) Sodium Level 143 mEQ/L (135-145) Potassium Level 3.2 mEQ/L (3.4-4.9) Chloride Level 97 mEQ/L (98-107) Carbon Dioxide Level 33 mEQ/L (20-30) Anion Gap 13 (5-15) Blood Urea Nitrogen 5 mg/dL (7-23) Creatinine 0.7 mg/dL (0.5-0.9) Estimat Glomerular Filtration Rate > 60 mL/min (>60) Glucose Level 95 mg/dL (74-106) Calcium Level 8.8 mg/dL (8.6-10.2) Total Bilirubin 0.4 mg/dL (0.0-1.2) Aspartate Amino Transf (AST/SGOT) 10 U/L (5-40) Alanine Aminotransferase (ALT/SGPT) 6 U/L (3-33) Alkaline Phosphatase 56 U/L (35-104) Total Creatine Kinase 65 U/L (26-140) Creatine Kinase MB 1.6 ng/mL (< 3.8) Creatine Kinase MB Relative Index 2.4 Troponin I < 0.30 ng/mL (<=0.30) Pro-B-Type Natriuretic Peptide 688 pg/mL (0-125) Total Protein 6.5 g/dL (6.6-8.7) Albumin 3.7 g/dL (3.5-5.2) Globulin 2.8 g/dL Albumin/Globulin Ratio 1.3 (1.0-2.7) EKG Diagnostic Results Rate: normal Rhythm: NSR ST Segments: other - Nonspecific ST and T-wave changes Rhythm Strip Diag. Results EP Interpretation: yes Rate: 77 Rhythm: NSR, no PVC's, no ectopy Chest X-Ray Diagnostic Results EP Interpretation: Yes Findings: no pneumothorax, other - Cardiomegaly, pulmonary congestion, no acute bony abnormalities Number of Views: 1 Last Vital Signs Date Time Temp Pulse Resp B/P Pulse Ox O2 Delivery O2 Flow Rate FiO2 01/18/17 16:06 79 18 100 Nasal Cannula 2.0 28 01/18/17 15:30 133/49 Status: improved Disposition: ADMITTED INPATIENT Condition: Serious Referrals: NON PHYSICIAN (PCP) SAROJ LIANG D.O. Jan 18, 2017 16:20
[2017-01-18] MEDS ORDERED: Morphine Sulfate 4mg/ml Inj IVP ONE (16:30)
[2017-01-18 16:41] LABS: CKMB 1.6 ng/mL (< 3.8)
[2017-01-18 17:30] VITALS: BP 137/56
[2017-01-18] MEDS ORDERED: DuoNeb 0.5-3(2.5)mg/3ml neb HHN PRN (18:15)
[2017-01-18] MEDS ORDERED: Nitroglycerin Subl 0.4mg tab (Bottle Of 25) SL PRN (18:15)
[2017-01-18] MEDS ORDERED: Ketorolac 30mg Inj IV PRN (18:15)
[2017-01-18 19:27] VITALS: BP 148/68
[2017-01-18 20:35] VITALS: BP 111/65
[2017-01-18] MEDS: Morphine Sulfate 2mg/ml Inj IVP PRN (20:41)
[2017-01-18] MEDS: NovoLOG Insulin Flexpen SUBQ SCH (22:00)
[2017-01-18] MEDS ORDERED: Piperacillin/Tazobactam 2.25 GM in D5W 55 ML IV SCH (22:00)
[2017-01-18] MEDS: Theophylline ER 100mg ORAL SCH (23:05)
[2017-01-18] MEDS: Zosyn 3.375gm q8h **Extended infusion IVPB SCH ×2 (23:05)
[2017-01-18] MEDS: Atorvastatin 80mg tab ORAL SCH (23:06)
[2017-01-18] MEDS: Heparin 5000 units/ml inj SUBQ SCH (23:07)
[2017-01-19] VITALS: BP 111/61
[2017-01-19] MEDS: Solu-MEDROL 125mg Inj IV SCH ×5 (00:11→23:50)
[2017-01-19] MEDS: Morphine Sulfate 2mg/ml Inj IVP PRN ×4 (01:45→17:35)
[2017-01-19 04:00] VITALS: BP 144/75
[2017-01-19] MEDS: Zosyn 3.375gm q8h **Extended infusion IVPB SCH ×6 (05:51→22:18)
[2017-01-19] MEDS: NovoLOG Insulin Flexpen SUBQ SCH ×4 (06:11→20:44)
[2017-01-19 07:45] VITALS: BP 139/73
[2017-01-19] MEDS: Theophylline ER 100mg ORAL SCH ×2 (10:28→20:41)
[2017-01-19] MEDS: Sertraline 100mg tab ORAL SCH (10:29)
[2017-01-19] MEDS: Lisinopril 10mg tab ORAL SCH (10:30)
[2017-01-19] MEDS: Heparin 5000 units/ml inj SUBQ SCH ×2 (10:36→20:45)
[2017-01-19] MEDS: LORazepam Inj 2mg/ml 1ml IV PRN (10:49)
--- NOTE | 2017-01-19 11:17 | Diagnostic Imaging Report ---
Indication: Chest Pain Comparison: 12/14/16 A single view chest radiograph was obtained. Findings: Cardiomegaly is present. Some vascular prominence again demonstrated. No definite infiltrate seen. Bones are osteopenic. Impression: No acute disease
[2017-01-19 11:25] VITALS: BP 127/69
--- NOTE | 2017-01-19 13:09 | History and Physical ---
History of Present Illness General Date patient seen: Jan 19, 2017 Reason for Hospitalization: Dyspnea/Respdistress Present Illness HPI 51 year old female with history of COPD and CHF, recent hospitalization at [facility] , presented with complaints of shortness of breath brown phlegm, increased cough and congestion. Patient reports taking an extra Lasix which did help somewhat. she was in respiratory distress in ER, therefore she was admitted to telemetry for further care Allergies: Coded Allergies: Lettuce (Verified Allergy, Severe, Anaphylaxis, 06/24/15) Uncoded Allergies: seafood (Allergy, Severe, anaphylaxic shock, 12/11/16) all seafoo Medication History Scheduled Albuterol Sulfate* (Proair Hfa*), 2 PUFFS INH Q6H, (Reported) Amoxicillin* (Amoxil*), 500 MG ORAL THREE TIMES A DAY Aspirin* (Aspir 81*), 81 MG ORAL DAILY, (Reported) Atorvastatin Calcium* (Lipitor*), 80 MG ORAL BEDTIME, (Reported) Docusate Sodium* (Colace*), 100 MG ORAL DAILY, (Reported) Fluticasone/Salmeterol (Advair 250-50 Diskus), 1 PUFF INH EVERY 12 HOURS Furosemide* (Lasix*), 20 MG ORAL BID, (Reported) Hydroxyzine Pamoate* (Hydroxyzine Pamoate*), 50 MG ORAL HS, (Reported) Ibuprofen (Ibuprofen*), 800 MG ORAL THREE TIMES A DAY, (Reported) Isosorbide Dinitrate (Isosorbide Dinitrate*), 10 MG ORAL BID, (Reported) Levofloxacin (Levofloxacin*), 500 MG ORAL DAILY, (Reported) Lisinopril (Lisinopril*), 10 MG ORAL DAILY, (Reported) Methylprednisolone (Methylprednisolone), 4 MG ORAL .as directed Metoprolol Tartrate (Metoprolol Tartrate), 25 MG ORAL BID, (Reported) Nicotine (Nicotine Patch), 1 PATCH TDERMAL Q24H Sertraline Hcl* (Zoloft*), 200 MG ORAL DAILY, (Reported) Tiotropium [place]* (Spiriva*), 1 PUFF INH DAILY, (Reported) Tramadol Hcl (Tramadol Hcl), 50 MG ORAL BID, (Reported) Ziprasidone Hcl* (Geodon*), 40 MG ORAL TWICE A DAY, (Reported) Scheduled PRN Acetaminophen (Tylenol), 650 MG ORAL Q6H PRN for For Pain Acetaminophen With Codeine (T#3) (Tylenol #3 Tab*), 1 TAB ORAL EVERY 6 HOURS PRN for For Pain Codeine/Promethazine Hcl* (Promethazine-Codeine Syrup*), 5 ML ORAL Q6H PRN for For Cough, (Reported) Diphenhydramine Hcl* (Diphenhydramine Hcl*), 50 MG ORAL DAILY PRN for Itching, ( Reported) Ibuprofen* (Motrin*), 600 MG ORAL THREE TIMES A DAY PRN for For Pain, (Reported) Levalbuterol Tartrate (Xopenex Hfa), 15 GM IH EVERY 4 HOURS PRN for Shortness of Breath, (Reported) Ranitidine Hcl (Ranitidine Hcl), 150 MG ORAL BID PRN for GASTRITIS, (Reported) Miscellaneous Medications Nitroglycerin (Nitroglycerin), 0.4 MG SL, (Reported) [Qvar], 1 PUFF ORAL, (Reported) Patient History Healthcare decision maker pt alert and oriented Resuscitation status Full Code Advanced Directive on File Past Medical/Surgical History Past Medical/Surgical History: (1) CHF (congestive heart failure) (2) Sleep apnea (3) HTN (hypertension) (4) Morbid obesity (5) Diabetes mellitus Review of Systems Constitutional: Reports: malaise Respiratory: Reports: MARINELLI, cough, shortness of breath Physical Exam General Appearance: obese HEENT: normocephalic, atraumatic Neck: non-tender, normal alignment Respiratory/Chest: chest wall non-tender, lungs clear Cardiovascular/Chest: normal peripheral pulses, normal rate Abdomen: normal bowel sounds, non tender Last 24 Hour Vital Signs Date Time Temp Pulse Resp B/P Pulse Ox O2 Delivery O2 Flow Rate FiO2 01/19/17 11:25 97.5 96 18 127/69 98 Nasal Cannula 2.0 01/19/17 11:22 Nasal Cannula 3.0 32 01/19/17 11:22 97 Nasal Cannula 3.0 32 01/19/17 10:30 139/73 01/19/17 08:00 28 01/19/17 08:00 87 01/19/17 08:00 84 20 Nasal Cannula 3.0 32 01/19/17 07:45 96.6 84 19 139/73 100 Bi-pap 40 01/19/17 05:28 74 19 94 Facial 30 01/19/17 04:00 98.0 78 20 144/75 97 Bi-pap 01/19/17 04:00 74 01/19/17 04:00 28 01/19/17 03:31 79 20 95 Facial 30 01/19/17 01:58 75 18 98 Facial 28 01/19/17 00:00 97.7 77 20 111/61 94 Nasal Cannula 01/19/17 00:00 78 01/18/17 21:45 71 13 111/65 96 Nasal Cannula 4.0 28 01/18/17 20:35 71 13 111/65 96 Nasal Cannula 4.0 28 01/18/17 19:27 76 20 148/68 95 Nasal Cannula 4.0 28 01/18/17 17:30 18 137/56 97 Nasal Cannula 2.0 28 01/18/17 16:06 79 18 100 Nasal Cannula 2.0 28 01/18/17 16:00 75 20 100 Nasal Cannula 2.0 28 01/18/17 15:55 75 20 Nasal Cannula 2.0 28 01/18/17 15:30 20 133/49 100 Room Air 01/18/17 15:30 81 20 Nasal Cannula 2.0 01/18/17 15:14 81 20 133/49 100 Room Air Intake and Output 01/18/17 01/19/17 19:00 07:00 Intake Total 0 ml 137.5 ml Balance 0 ml 137.5 ml Intake Oral 0 ml IV Total 137.5 ml # Voids 2 # Bowel Movements 1 Laboratory Tests Test 01/18/17 15:42 White Blood Count 10.3 K/UL (4.8-10.8) Red Blood Count 4.86 M/UL (4.20-5.40) Hemoglobin 10.9 G/DL (12.0-16.0) L Hematocrit 37.0 % (37.0-47.0) Mean Corpuscular Volume 76 FL (80-99) L Mean Corpuscular Hemoglobin 22.5 PG (27.0-31.0) L Mean Corpuscular Hemoglobin Concent 29.5 G/DL (32.0-36.0) L Red Cell Distribution Width 19.7 % (11.6-14.8) H Platelet Count 308 K/UL (150-450) Mean Platelet Volume 7.1 FL (6.5-10.1) Neutrophils (%) (Auto) 60.2 % (45.0-75.0) Lymphocytes (%) (Auto) 32.8 % (20.0-45.0) Monocytes (%) (Auto) 3.7 % (1.0-10.0) Eosinophils (%) (Auto) 2.2 % (0.0-3.0) Basophils (%) (Auto) 1.2 % (0.0-2.0) Prothrombin Time 9.3 SEC (9.30-11.50) Prothromb Time International Ratio 1.0 (0.9-1.1) Activated Partial Thromboplast Time 23 SEC (23-33) Sodium Level 143 mEQ/L (135-145) Potassium Level 3.2 mEQ/L (3.4-4.9) L Chloride Level 97 mEQ/L (98-107) L Carbon Dioxide Level 33 mEQ/L (20-30) H Anion Gap 13 (5-15) Blood Urea Nitrogen 5 mg/dL (7-23) L Creatinine 0.7 mg/dL (0.5-0.9) Estimat Glomerular Filtration Rate > 60 mL/min (>60) Glucose Level 95 mg/dL (74-106) Calcium Level 8.8 mg/dL (8.6-10.2) Total Bilirubin 0.4 mg/dL (0.0-1.2) Aspartate Amino Transf (AST/SGOT) 10 U/L (5-40) Alanine Aminotransferase (ALT/SGPT) 6 U/L (3-33) Alkaline Phosphatase 56 U/L (35-104) Total Creatine Kinase 65 U/L (26-140) Creatine Kinase MB 1.6 ng/mL (< 3.8) Creatine Kinase MB Relative Index 2.4 Troponin I < 0.30 ng/mL (<=0.30) Pro-B-Type Natriuretic Peptide 688 pg/mL (0-125) H Total Protein 6.5 g/dL (6.6-8.7) L Albumin 3.7 g/dL (3.5-5.2) Globulin 2.8 g/dL Albumin/Globulin Ratio 1.3 (1.0-2.7) Height (Feet): 5 Height (Inches): 4.00 Weight (Pounds): 296 Medications Current Medications Medications (Trade) Dose Ordered Sig/May Route PRN Reason Start Time Stop Time Status Last Admin Dose Admin Albuterol/ Ipratropium (DuoNeb 0.5-3(2.5)mg/3ml) 3 ml Q4H PRN HHN dyspnea 01/18/17 18:15 01/23/17 18:14 Atorvastatin Calcium (Lipitor) 80 mg BEDTIME ORAL 01/18/17 22:00 02/17/17 21:59 01/18/17 23:06 Dextrose STAT PRN IV Hypoglycemia 01/18/17 18:15 02/17/17 18:14 Furosemide (Lasix) 20 mg BID ORAL 01/19/17 09:00 02/18/17 08:59 01/19/17 10:31 Heparin Sodium (Porcine) (Heparin 5000 units/ml) 5,000 units EVERY 12 HOURS SUBQ 01/18/17 22:00 02/17/17 21:59 01/19/17 10:36 Insulin Aspart (NovoLOG) BEFORE MEALS AND HS SUBQ 01/18/17 22:00 02/17/17 21:59 01/19/17 12:16 Ketorolac Tromethamine (Toradol 30mg) 30 mg Q8H PRN IV moderate pain 4-6 01/18/17 18:15 01/23/17 18:14 Lisinopril (Zestril) 10 mg DAILY ORAL 01/19/17 09:00 02/18/17 08:59 01/19/17 10:30 Lorazepam (Ativan 2mg/ml 1ml) 0.5 mg Q4H PRN IV For Anxiety 01/18/17 18:15 01/25/17 18:14 01/19/17 10:49 Methylprednisolone Sodium Succinate (Solu-MEDROL) 60 mg EVERY 6 HOURS IV 01/19/17 00:00 02/18/17 00:00 01/19/17 12:14 Morphine Sulfate (Morphine Sulfate) 2 mg Q4H PRN IVP severe pain 7-10 01/18/17 18:15 01/25/17 18:14 01/19/17 07:55 Nitroglycerin (Ntg) 0.4 mg Q5M X 3 DOSES PRN SL Prn Chest Pain 01/18/17 18:15 02/17/17 18:14 Ondansetron HCl (Zofran) 4 mg Q6H PRN IVP Nausea & Vomiting 01/18/17 18:15 02/17/17 18:14 Piperacillin Sod/ Tazobactam Sod/ Dextrose (Zosyn/D5W) 110 ml @ 27.5 mls/hr EVERY 8 HOURS IVPB 01/18/17 21:00 01/23/17 20:59 01/19/17 05:51 Promethazine HCl/ Codeine (Phenergan with Codeine) 5 ml Q6H PRN ORAL cough 01/18/17 18:15 02/17/17 18:14 Sertraline HCl (Zoloft) 200 mg DAILY ORAL 01/19/17 09:00 02/18/17 08:59 01/19/17 10:29 Temazepam (Restoril) 15 mg HSPRN PRN ORAL Insomnia 01/18/17 18:15 01/25/17 18:14 Theophylline (Willard-Dur) 100 mg EVERY 12 HOURS ORAL 01/18/17 22:00 02/17/17 21:59 01/19/17 10:28 Assessment/Plan Problem List: (1) Respiratory failure with hypoxia ICD Codes: J96.91 - Respiratory failure, unspecified with hypoxia SNOMED: 66506427321058331 (2) COPD exacerbation ICD Codes: J44.1 - Chronic obstructive pulmonary disease with (acute) exacerbation SNOMED: 254101460 (3) CHF (congestive heart failure) ICD Codes: I50.9 - Heart failure, unspecified SNOMED: 30594746 (4) Sleep apnea ICD Codes: G47.30 - Sleep apnea, unspecified SNOMED: 41906904 (5) History of smoking ICD Codes: Z87.891 - Personal history of nicotine dependence SNOMED: 59235258333019647 Assessment/Plan respiratory treatment IV antibiotics IV steroids cardiology evaluation check sputum titrate fio2 LAMIN NEWTON Jan 19, 2017 13:08
--- NOTE | 2017-01-19 15:06 | Cardiology Progress Note ---
Assessment/Plan Assessment/Plan copd exacerbation hs fo heart failure EF was normal echo 11/2016 as well as by nuclear med 03/2016 obesity tobacco use disorder uterine fibroidhs htn hyperlipidmia rxn for copd exacerbation no diuretic needed ef previouosly normal pro bnp not sig elevated no edema [id number] Objective Last 24 Hour Vital Signs Date Time Temp Pulse Resp B/P Pulse Ox O2 Delivery O2 Flow Rate FiO2 01/19/17 11:25 97.5 96 18 127/69 98 Nasal Cannula 2.0 01/19/17 11:22 Nasal Cannula 3.0 32 01/19/17 11:22 97 Nasal Cannula 3.0 32 01/19/17 10:30 139/73 01/19/17 08:00 28 01/19/17 08:00 87 01/19/17 08:00 84 20 Nasal Cannula 3.0 32 01/19/17 07:45 96.6 84 19 139/73 100 Bi-pap 40 01/19/17 05:28 74 19 94 Facial 30 01/19/17 04:00 98.0 78 20 144/75 97 Bi-pap 01/19/17 04:00 74 01/19/17 04:00 28 01/19/17 03:31 79 20 95 Facial 30 01/19/17 01:58 75 18 98 Facial 28 01/19/17 00:00 97.7 77 20 111/61 94 Nasal Cannula 01/19/17 00:00 78 01/18/17 21:45 71 13 111/65 96 Nasal Cannula 4.0 28 01/18/17 20:35 71 13 111/65 96 Nasal Cannula 4.0 28 01/18/17 19:27 76 20 148/68 95 Nasal Cannula 4.0 28 01/18/17 17:30 18 137/56 97 Nasal Cannula 2.0 28 01/18/17 16:06 79 18 100 Nasal Cannula 2.0 28 01/18/17 16:00 75 20 100 Nasal Cannula 2.0 28 01/18/17 15:55 75 20 Nasal Cannula 2.0 28 01/18/17 15:30 20 133/49 100 Room Air 01/18/17 15:30 81 20 Nasal Cannula 2.0 01/18/17 15:14 81 20 133/49 100 Room Air Intake and Output 01/18/17 01/19/17 18:59 06:59 Intake Total 0 ml 137.5 ml Balance 0 ml 137.5 ml Intake Oral 0 ml IV Total 137.5 ml # Voids 2 # Bowel Movements 1 Laboratory Tests Test 01/18/17 15:42 White Blood Count 10.3 K/UL (4.8-10.8) Red Blood Count 4.86 M/UL (4.20-5.40) Hemoglobin 10.9 G/DL (12.0-16.0) L Hematocrit 37.0 % (37.0-47.0) Mean Corpuscular Volume 76 FL (80-99) L Mean Corpuscular Hemoglobin 22.5 PG (27.0-31.0) L Mean Corpuscular Hemoglobin Concent 29.5 G/DL (32.0-36.0) L Red Cell Distribution Width 19.7 % (11.6-14.8) H Platelet Count 308 K/UL (150-450) Mean Platelet Volume 7.1 FL (6.5-10.1) Neutrophils (%) (Auto) 60.2 % (45.0-75.0) Lymphocytes (%) (Auto) 32.8 % (20.0-45.0) Monocytes (%) (Auto) 3.7 % (1.0-10.0) Eosinophils (%) (Auto) 2.2 % (0.0-3.0) Basophils (%) (Auto) 1.2 % (0.0-2.0) Prothrombin Time 9.3 SEC (9.30-11.50) Prothromb Time International Ratio 1.0 (0.9-1.1) Activated Partial Thromboplast Time 23 SEC (23-33) Sodium Level 143 mEQ/L (135-145) Potassium Level 3.2 mEQ/L (3.4-4.9) L Chloride Level 97 mEQ/L (98-107) L Carbon Dioxide Level 33 mEQ/L (20-30) H Anion Gap 13 (5-15) Blood Urea Nitrogen 5 mg/dL (7-23) L Creatinine 0.7 mg/dL (0.5-0.9) Estimat Glomerular Filtration Rate > 60 mL/min (>60) Glucose Level 95 mg/dL (74-106) Calcium Level 8.8 mg/dL (8.6-10.2) Total Bilirubin 0.4 mg/dL (0.0-1.2) Aspartate Amino Transf (AST/SGOT) 10 U/L (5-40) Alanine Aminotransferase (ALT/SGPT) 6 U/L (3-33) Alkaline Phosphatase 56 U/L (35-104) Total Creatine Kinase 65 U/L (26-140) Creatine Kinase MB 1.6 ng/mL (< 3.8) Creatine Kinase MB Relative Index 2.4 Troponin I < 0.30 ng/mL (<=0.30) Pro-B-Type Natriuretic Peptide 688 pg/mL (0-125) H Total Protein 6.5 g/dL (6.6-8.7) L Albumin 3.7 g/dL (3.5-5.2) Globulin 2.8 g/dL Albumin/Globulin Ratio 1.3 (1.0-2.7) ANDI ZACARIAS Jan 19, 2017 15:06
[2017-01-19 16:00] VITALS: BP 113/59
--- NOTE | 2017-01-19 19:38 | Consultation ---
DATE OF CONSULTATION: 01/19/2017 CONSULTING PHYSICIAN: Tyler Batista M.D. REFERRING PHYSICIAN: Win Ro M.D. REASON FOR REFERRAL: Shortness of breath and possible congestive heart failure. HISTORY OF PRESENT ILLNESS: A 51-year-old female with history of multiple medical problems. The patient was seen by me sometime ago and she was admitted to the hospital. She has recurrence of the shortness of breath that brought her in the last time. She has cough and wheezing. She has been using inhalers on a frequent basis. Negative taking some extra dose of Lasix to get rid of the fluid in her legs with her shortness of breath did not kailash. So, she presented to the emergency room because of these symptoms. She sleeps almost in a sitting position because of her shortness of breath. There are episodes of PND and dyspnea on exertion, previously was able to walk to the bathroom without any shortness of breath, but most recently it has been an issue as well. There is no pain or pressure tightness in her chest except for what is related to her coughing. She has wheezing. She has occasional dizziness on standing. No heart pounding or palpitation of significant degree. PAST MEDICAL HISTORY: Positive for history of high blood pressure, high cholesterol, congestive heart failure, COPD exacerbation, obesity, uterine fibroids, and multiple admissions because of chronic obstructive pulmonary disease. She had a prior echocardiogram that showed ejection fraction of 40% a year ago previously on multiple medicine. medicine data indicated normal ejection fraction in 2016. REVIEW OF SYSTEMS: Gastrointestinal: She denies any nausea or vomiting. No diarrhea or constipation. Genitourinary: She denies except for small amount of burning on urination. Pulmonary System: Coughing, wheezing, and sputum production. Constitutional: Review of systems no night sweats. Neurologic: Negative. PHYSICAL EXAMINATION: GENERAL: Shows to be morbidly obese elderly female, in no apparent distress. NECK: Supple. No jugular venous distention. No abdominojugular reflux. LUNGS: Show decreased air entry. No wheezes, inspiratory, or expiratory. No crackles are noted. CARDIAC: Regular rate and rhythm. No heaves. No thrills. No gallops. No rubs are noted. ABDOMEN: Soft and nontender. Positive bowel sounds. EXTREMITIES: There is no clubbing, cyanosis, nor edema at the present time. LABORATORY DATA: EKG shows sinus rhythm. There are some T-wave changes on her telemetry strips. Her electrocardiogram shows diffuse T-wave inversions in V1 through V6 and one in aVL as well as II and aVF this is diffuse T-wave changes noted on the EKG. Her blood tests - white count of 10.3 with hemoglobin 10.9 and platelet count 308,000. Sodium was 142, potassium 3.3, chloride 97, bicarbonate 33, BUN of 5, creatinine 0.7, glucose of 95, and calcium is 8.8. Troponin less than 0.03. ProBNP is only 688. AST and ALT are within normal limits. Her albumin of 3.7. Coagulation INR is 1.0 and a PTT of 23. Urinalysis is 0 to 2 RBCs, 2 to 4 WBCs. Her other data includes a chest x-ray that was performed in the emergency room that shows no acute disease and her echocardiogram that was performed in November of 2016 was interpreted as showing technically difficult study with wall motion of 55%. No valvular regurgitation was noted on that echocardiogram. ASSESSMENT: 1. Chronic obstructive pulmonary disease with morbid exacerbation and morbid obesity. 2. Edema probably related to right heart issues. Dr. Ro might plan to see in cardiac consultation. Vital signs appeared to be stable at the present time as far as her pulse oximetry as well as the heart beat and blood pressure concern. She is requiring some nasal cannula oxygen. Otherwise, she appears to be in no respiratory distress. She does have some electrolyte abnormalities likely from the use of diuretics and possibly even overuse of diuretics to control her edema. Her proBNP is only 688. Her LV function previously was normal. I doubt that she has significant component of congestive heart failure. I suspect that all of her symptoms are probably related to her chronic obstructive pulmonary disease. Tyler Batista M.D. DR: NANI JOB#: [id number] CC:
[2017-01-19 20:00] VITALS: BP 121/53
[2017-01-19] MEDS: Atorvastatin 80mg tab ORAL SCH (20:41)
[2017-01-19] MEDS: Promethazine/Codeine 5ml UD ORAL PRN (20:41)
[2017-01-20 00:20] VITALS: BP 142/81
[2017-01-20 04:25] VITALS: BP 115/64
[2017-01-20] MEDS: Morphine Sulfate 2mg/ml Inj IVP PRN ×3 (04:44→20:11)
[2017-01-20] MEDS: Zosyn 3.375gm q8h **Extended infusion IVPB SCH ×6 (05:50→21:49)
[2017-01-20] MEDS: Solu-MEDROL 125mg Inj IV SCH ×3 (05:50→17:16)
[2017-01-20] MEDS: NovoLOG Insulin Flexpen SUBQ SCH ×4 (06:39→20:18)
[2017-01-20 08:00] VITALS: BP 136/73
[2017-01-20] MEDS: Theophylline ER 100mg ORAL SCH ×2 (08:45→20:11)
[2017-01-20] MEDS: Lisinopril 10mg tab ORAL SCH (08:46)
[2017-01-20] MEDS: Sertraline 100mg tab ORAL SCH (08:46)
[2017-01-20] MEDS: Heparin 5000 units/ml inj SUBQ SCH ×2 (08:48→20:19)
[2017-01-20] MEDS: LORazepam Inj 2mg/ml 1ml IV PRN ×2 (08:48→16:20)
[2017-01-20 12:00] VITALS: BP 120/67
--- NOTE | 2017-01-20 13:24 | Pulmonology Progress Note ---
Assessment/Plan Problems: (1) Respiratory failure with hypoxia (2) COPD exacerbation (3) CHF (congestive heart failure) (4) Sleep apnea (5) History of smoking Assessment/Plan improving less cough less sob Subjective ROS Limited/Unobtainable: No Constitutional: Reports: no symptoms HEENT: Repors: no symptoms Respiratory: Reports: no symptoms Allergies: Coded Allergies: Lettuce (Verified Allergy, Severe, Anaphylaxis, 06/24/15) Uncoded Allergies: seafood (Allergy, Severe, anaphylaxic shock, 12/11/16) all seafoo Objective Last 24 Hour Vital Signs Date Time Temp Pulse Resp B/P Pulse Ox O2 Delivery O2 Flow Rate FiO2 01/20/17 12:00 96.6 76 17 120/67 93 Room Air 01/20/17 11:39 97.0 01/20/17 08:46 136/73 01/20/17 08:00 85 01/20/17 08:00 97.0 85 18 136/73 95 Nasal Cannula 2.0 01/20/17 04:25 97.0 86 20 115/64 98 Room Air 01/20/17 04:00 28 01/20/17 04:00 100 01/20/17 00:20 98.0 78 20 142/81 98 Bi-pap 01/20/17 00:00 97 01/20/17 00:00 28 01/19/17 22:40 28 01/19/17 21:39 71 38 92 Facial 30 01/19/17 20:00 80 01/19/17 20:00 97.9 80 19 121/53 Nasal Cannula 2.0 93 01/19/17 19:00 Nasal Cannula 3.0 32 01/19/17 19:00 88 20 Nasal Cannula 3.0 32 01/19/17 19:00 92 Nasal Cannula 3.0 32 01/19/17 16:00 97.2 102 18 113/59 97 Room Air 01/19/17 16:00 81 Intake and Output 01/19/17 01/20/17 19:00 07:00 Intake Total 898.0 ml 377.5 ml Output Total 700 ml 300 ml Balance 198.0 ml 77.5 ml Intake Oral 780 ml 240 ml IV Total 118.0 ml 137.5 ml Output Urine Total 700 ml 300 ml # Voids 3 General Appearance: WD/WN HEENT: normocephalic Respiratory/Chest: lungs clear, normal breath sounds Cardiovascular: normal peripheral pulses, normal rate Current Medications Medications (Trade) Dose Ordered Sig/May Route PRN Reason Start Time Stop Time Status Last Admin Dose Admin Albuterol/ Ipratropium (DuoNeb 0.5-3(2.5)mg/3ml) 3 ml Q4H PRN HHN dyspnea 01/18/17 18:15 01/23/17 18:14 Atorvastatin Calcium (Lipitor) 80 mg BEDTIME ORAL 01/18/17 22:00 02/17/17 21:59 01/19/17 20:41 Dextrose STAT PRN IV Hypoglycemia 01/18/17 18:15 02/17/17 18:14 Furosemide (Lasix) 20 mg BID ORAL 01/19/17 09:00 02/18/17 08:59 01/20/17 08:46 Heparin Sodium (Porcine) (Heparin 5000 units/ml) 5,000 units EVERY 12 HOURS SUBQ 01/18/17 22:00 02/17/17 21:59 01/20/17 08:48 Insulin Aspart (NovoLOG) BEFORE MEALS AND HS SUBQ 01/18/17 22:00 02/17/17 21:59 01/20/17 11:47 Ketorolac Tromethamine (Toradol 30mg) 30 mg Q8H PRN IV moderate pain 4-6 01/18/17 18:15 01/23/17 18:14 Lisinopril (Zestril) 10 mg DAILY ORAL 01/19/17 09:00 02/18/17 08:59 01/20/17 08:46 Lorazepam (Ativan 2mg/ml 1ml) 0.5 mg Q4H PRN IV For Anxiety 01/18/17 18:15 01/25/17 18:14 01/20/17 08:48 Methylprednisolone Sodium Succinate (Solu-MEDROL) 60 mg EVERY 6 HOURS IV 01/19/17 00:00 02/18/17 00:00 01/20/17 11:46 Morphine Sulfate (Morphine Sulfate) 2 mg Q4H PRN IVP severe pain 7-10 01/18/17 18:15 01/25/17 18:14 01/20/17 11:09 Nitroglycerin (Ntg) 0.4 mg Q5M X 3 DOSES PRN SL Prn Chest Pain 01/18/17 18:15 02/17/17 18:14 Ondansetron HCl (Zofran) 4 mg Q6H PRN IVP Nausea & Vomiting 01/18/17 18:15 02/17/17 18:14 01/19/17 19:29 Piperacillin Sod/ Tazobactam Sod/ Dextrose (Zosyn/D5W) 110 ml @ 27.5 mls/hr EVERY 8 HOURS IVPB 01/18/17 21:00 01/23/17 20:59 01/20/17 05:50 Promethazine HCl/ Codeine (Phenergan with Codeine) 5 ml Q6H PRN ORAL cough 01/18/17 18:15 02/17/17 18:14 01/19/17 20:41 Sertraline HCl (Zoloft) 200 mg DAILY ORAL 01/19/17 09:00 02/18/17 08:59 01/20/17 08:46 Temazepam (Restoril) 15 mg HSPRN PRN ORAL Insomnia 01/18/17 18:15 01/25/17 18:14 01/19/17 22:35 Theophylline (Willard-Dur) 100 mg EVERY 12 HOURS ORAL 01/18/17 22:00 02/17/17 21:59 01/20/17 08:45 LAMIN NEWTON Jan 20, 2017 13:24
[2017-01-20 16:00] VITALS: BP 127/60
[2017-01-20 20:00] VITALS: BP 128/72
[2017-01-20] MEDS: Atorvastatin 80mg tab ORAL SCH (20:10)
[2017-01-20] MEDS: Promethazine/Codeine 5ml UD ORAL PRN (20:15)
--- NOTE | 2017-01-20 20:45 | Cardiology Progress Note ---
Assessment/Plan Assessment/Plan copd exacerbation hs fo heart failure EF was normal echo 11/2016 as well as by nuclear med 03/2016 obesity tobacco use disorder uterine fibroids htn hyperlipidemia rxn for copd exacerbation no diuretic needed ef previouosly normal pro bnp not sig elevated no edema overall better tele reviewed sinus dc plan sper dr voss Subjective Cardiovascular: Reports: lightheadedness, Denies: chest pain Respiratory: Reports: cough - less, shortness of breath Subjective over all better walked in foss midl dizzy on standgin Objective Last 24 Hour Vital Signs Date Time Temp Pulse Resp B/P Pulse Ox O2 Delivery O2 Flow Rate FiO2 01/20/17 20:00 97.2 70 18 128/72 Nasal Cannula 2.0 96 01/20/17 19:00 Nasal Cannula 3.0 32 01/20/17 19:00 97 Nasal Cannula 3.0 32 01/20/17 19:00 72 18 Nasal Cannula 3.0 32 01/20/17 16:00 70 01/20/17 16:00 97.5 69 19 127/60 Nasal Cannula 2.0 96 01/20/17 12:00 85 01/20/17 12:00 96.6 76 17 120/67 93 Room Air 01/20/17 11:39 97.0 01/20/17 08:46 136/73 01/20/17 08:00 85 01/20/17 08:00 97.0 85 18 136/73 95 Nasal Cannula 2.0 01/20/17 04:25 97.0 86 20 115/64 98 Room Air 01/20/17 04:00 28 01/20/17 04:00 100 01/20/17 00:20 98.0 78 20 142/81 98 Bi-pap 01/20/17 00:00 97 01/20/17 00:00 28 01/19/17 22:40 28 01/19/17 21:39 71 38 92 Facial 30 General Appearance: no apparent distress, obese Neck: no JVD Cardiovascular: normal rate Respiratory/Chest: decreased breath sounds, expiratory wheezing Abdomen: normal bowel sounds, non tender, soft Extremities: no swelling Intake and Output 01/19/17 01/20/17 19:00 07:00 Intake Total 898.0 ml 377.5 ml Output Total 700 ml 300 ml Balance 198.0 ml 77.5 ml Intake Oral 780 ml 240 ml IV Total 118.0 ml 137.5 ml Output Urine Total 700 ml 300 ml # Voids 3 ANDI ZACARIAS Jan 20, 2017 20:45
[2017-01-21] MEDS: Solu-MEDROL 125mg Inj IV SCH ×3 (00:09→12:16)
[2017-01-21 00:20] VITALS: BP 152/92
[2017-01-21] MEDS: LORazepam Inj 2mg/ml 1ml IV PRN (00:26)
[2017-01-21] MEDS: Morphine Sulfate 2mg/ml Inj IVP PRN (02:48)
[2017-01-21 04:00] VITALS: BP 155/84
[2017-01-21] MEDS: Zosyn 3.375gm q8h **Extended infusion IVPB SCH ×4 (05:49→13:08)
[2017-01-21] MEDS: NovoLOG Insulin Flexpen SUBQ SCH ×2 (05:50→11:30)
[2017-01-21 07:48] LABS: MEAN CORPUSCULAR HEMOGLOBIN 22.8 PG (27.0-31.0); MEAN CORPUSCULAR HGB CONC 28.9 G/DL (32.0-36.0); MEAN CORPUSCULAR VOLUME 79 FL (80-99); MEAN PLATELET VOLUME 6.6 FL (6.5-10.1); PLATELET COUNT 302 K/UL (150-450); RED BLOOD COUNT 4.41 M/UL (4.20-5.40); RED CELL DISTRIBUTION WIDTH 19.6 % (11.6-14.8); WHITE BLOOD COUNT 11.7 K/UL (4.8-10.8)
[2017-01-21 08:00] VITALS: BP 137/67
[2017-01-21 08:07] LABS: ALANINE AMINOTRANSFERASE 6 U/L (3-33); ALBUMIN/GLOBULIN RATIO 1.3 (1.0-2.7); ANION GAP 13 (5-15); ASPARTATE AMINO TRANSFERASE 9 U/L (5-40); CARBON DIOXIDE 33 mEQ/L (20-30); CHLORIDE 94 mEQ/L (98-107); CREATININE 0.9 mg/dL (0.5-0.9); GLOMERULAR FILTRATION RATE > 60 mL/min (>60); HEMOLYSIS 1; POTASSIUM 3.9 mEQ/L (3.4-4.9); SODIUM 140 mEQ/L (135-145); TOTAL PROTEIN 6.9 g/dL (6.6-8.7)
[2017-01-21 08:32] LABS: ANISOCYTOSIS 2+; BAND NEUTROPHILS % (MANUAL) 0 % (0-8); BASOPHILS % (MANUAL) 0 % (0-2); EOSINOPHILS % (MANUAL) 0 % (0-3); HYPOCHROMASIA 1+; LYMPHOCYTES % (MANUAL) 11 % (20-45); NEUTROPHILS % (MANUAL) 88 % (45-75); PLATELET ESTIMATE DECREASED; TOTAL CELLS COUNTED 100
[2017-01-21 08:33] LABS: MICROCYTES 1+; PLATELET MORPHOLOGY NORMAL
[2017-01-21] MEDS: Theophylline ER 100mg ORAL SCH (08:36)
[2017-01-21] MEDS: Sertraline 100mg tab ORAL SCH (08:36)
[2017-01-21] MEDS: Lisinopril 10mg tab ORAL SCH (08:36)
[2017-01-21] MEDS: Heparin 5000 units/ml inj SUBQ SCH (08:36)
--- NOTE | 2017-01-21 11:25 | Diagnostic Imaging Report ---
Indication: DYSPNEA Technique: One view of the chest Comparison: 01/18/2017 Findings: Body habitus limits evaluation. The heart is enlarged. There is equivocal mild pulmonary vascular prominence, but no gross interstitial edema or infiltrates. No effusions. Findings are unchanged Impression: Equivocal mild pulmonary venous congestion, if real unchanged over 3 days. No acute process otherwise Cardiomegaly
[2017-01-21 12:00] VITALS: BP 134/58
--- NOTE | 2017-01-21 15:28 | Cardiology Report ---
APPROVED REPORT EKG Measurement Heart [id number] Normal sinus rhythm T wave abnormality, consider anterolateral ischemia Prolonged QT Abnormal ECG
--- NOTE | 2017-01-22 14:38 | Discharge Summary ---
Discharge Summary Hospital Course Date of Admission Jan 18, 2017 at 15:58 Date of Discharge Jan 21, 2017 at 15:55 Admitting Diagnosis dyspnea HPI Christina Jimenez is a 51 year old female who was admitted on Jan 18, 2017 at 15:58 for Dyspnea Hospital Course [id number] Discharge Discharge Disposition Patient was discharged to Home (01) Discharge Diagnoses: Jessica Emanuel NP Jan 22, 2017 14:38
--- NOTE | 2017-01-23 01:38 | Discharge Summary 2 SIG ---
DATE OF ADMISSION: 01/18/2017 DATE OF DISCHARGE: 01/21/2017 FINGERPRINTER: Tyler Batista M.D. BRIEF HOSPITAL COURSE: The patient is a 51-year-old female with history of COPD and CHF and had recent hospitalization at [place] for shortness of breath. The patient reported taking extra Lasix, but did not help. She came into ED. She was in respiratory distress. The patient was initially placed on BiPAP and admitted to telemetry. Dr. Batista was consulted for possible congestive heart failure. EKG showed sinus rhythm with some T-wave changes and T-wave inversion in V1 through V6 and 1 in aVL as well as leads 2 and aVF. Chest x-ray showed no acute disease. An echocardiogram performed on 11/2016 was interpreted as a technically difficult study with wall motion of 55%. No valvular regurgitation. ProBNP is 688. LV function was normal. Shortness of breath was also contributed by COPD. She was given breathing treatments, IV antibiotics and IV steroids. Telemetry one strip had been sinus and the patient was eventually discharged home. FINAL DIAGNOSES: 1. Acute respiratory failure requiring BiPAP resolved. 2. Chronic obstructive pulmonary disease exacerbation. 3. Acute on chronic diastolic congestive heart failure. 4. Sleep apnea. 5. History of smoking. Win Ro M.D. I have been assigned to dictate discharge summary on this account and I was not involved in the patient's management. Jessica Emanuel N.P. DR: VERONICA JOB#: [id number] CC:
== END 2017-01-21 15:55 | disposition home or self-care (01) | DRG 189 ==
LOC: EDBD 15:19 → EMR 15:55 → 2E 15:58 → EDBEDREQ 20:08
PROC: 5A09357 Assistance with Respiratory Ventilation, Less than 24 Consecutive Hours, Continuous Positive Airway Pressure (ICD-10-PCS; principal; 2017-01-18)
DX: J96.01 Acute respiratory failure with hypoxia (principal); I50.33 Acute on chronic diastolic (congestive) heart failure; J44.1 Chronic obstructive pulmonary disease with (acute) exacerbation; Z68.43 Body mass index [BMI] 50.0-59.9, adult; E66.01 Morbid (severe) obesity due to excess calories; G47.33 Obstructive sleep apnea (adult) (pediatric); I10 Essential (primary) hypertension; E11.9 Type 2 diabetes mellitus without complications; Z87.891 Personal history of nicotine dependence; D25.9 Leiomyoma of uterus, unspecified; E78.5 Hyperlipidemia, unspecified
CPT/HCPCS: 36415; 71010; 80053; 82550; 82553; 82962; 83880; 84484; 85007; 85025; 85610; 85730; 93005; 94640; 94664; 94760; J1815; J2405; J8499

== ENCOUNTER 2017-02-01 18:07 | Inpatient (IN) | payer MEDICARE, OTHER ==
[~2017-02-01] VITALS: Ht 162.6 cm; Wt 134.3 kg
[2017-02-01 19:00] VITALS: BP 129/92
[2017-02-01] MEDS ORDERED: Nitroglycerin Subl 0.4mg tab (Bottle Of 25) SL PRN ×2 (19:00→22:15)
[2017-02-01] MEDS ORDERED: Ipratropium 0.02% Inh Soln 2.5ml UD HHN ONE (19:00)
[2017-02-01] MEDS ORDERED: Albuterol ud Inhalation HHN ONE (19:00)
[2017-02-01] MEDS ORDERED: cefTRIAXone 1 GM in NS 55 ML IVPB ONE (19:00)
[2017-02-01] MEDS ORDERED: Aspirin Baby 81mg ORAL ONE (19:00)
[2017-02-01] MEDS ORDERED: Morphine Sulfate 4mg/ml Inj IVP ONE ×2 (19:00→23:00)
--- NOTE | 2017-02-01 19:50 | Emergency Room Report ---
History of Present Illness General Chief Complaint: Chest Pain Source: Patient Present Illness HPI Patient presents with 2 problems. 1. Chest pain. Severe. Sharp left-sided radiates to her shoulders. She feels squeezing in her both of her arms at this time. Just has a history of COPD and she's been wheezing. She denies being on prednisone at this time. She 's been using her inhaler and also her nebulizer. She is on home oxygen. 10/ sharp, radiates to shoulders. Never with this type of pain. No medicines taken. 2. She has a small abscess in the front part of her mouth. No drainage there. There is pain. It does not radiate. She has bad teeth. Son states she is in the ED every week. Denies dysuria, diarrhea. + nausea and constipation. Headache. Anxiety/ depression. Recently admitted here. Discharge dx on 01/21/17: 1. Acute respiratory failure requiring BiPAP resolved. 2. Chronic obstructive pulmonary disease exacerbation. 3. Acute on chronic diastolic congestive heart failure. 4. Sleep apnea. 5. History of smoking. Allergies: Coded Allergies: Lettuce (Verified Allergy, Severe, Anaphylaxis, 06/24/15) Uncoded Allergies: seafood (Allergy, Severe, anaphylaxic shock, 12/11/16) all seafoo Patient History Past Medical History: see triage record Social History: Reports: smoking Social History Narrative at home Reviewed Nursing Documentation: PMH: Agreed, PSxH: Agreed Nursing Documentation-PM Hx Cardiac Problems: Yes - CHF; High cholesterol; Uterine fibroid Hx Hypertension: Yes Hx COPD: Yes Hx Diabetes: Yes Hx Cancer: No Hx Gastrointestinal Problems: Yes - GERD Hx Neurological Problems: No Hx Dizziness: Yes Hx Headaches: Yes Review of Systems All Other Systems: negative except mentioned in HPI Physical Exam Vital Signs Date Time Temp Pulse Resp B/P Pulse Ox O2 Delivery O2 Flow Rate FiO2 02/01/17 18:41 98.4 81 20 147/79 98 Nasal Cannula 2.0 Sp02 EP Interpretation: reviewed, normal General Appearance: alert, mild distress, obese, Chronically Ill Head: normocephalic Eyes: bilateral eye PERRL, bilateral eye conjunctivae pale, bilateral eye normal inspection ENT: moist mucus membranes - poor dentition, other - swelling and pain anterior lower jaw line, no fluctuance Neck: supple Respiratory: lungs clear, normal breath sounds, other - chest wall tenderness Cardiovascular #1: regular rate, rhythm Cardiovascular #2: 2+ radial (R) Gastrointestinal: normal inspection, normal bowel sounds, non tender, no mass, non-distended, overweight Musculoskeletal: back normal, gait/station normal, normal range of motion, no calf tenderness Neurologic: alert, oriented x3, grossly normal Psychiatric: depressed affect - tearful Skin: normal inspection, warm/dry Medical Decision Making Diagnostic Impression: Primary Impression: CHF exacerbation Qualified Codes: I50.43 - Acute on chronic combined systolic (congestive) and diastolic (congestive) heart failure Additional Impressions: Chest pain Qualified Codes: R07.9 - Chest pain, unspecified Acute periodontal abscess ER Course Patient presents with L chest pain, dyspnea and dental abscess. Ddx: ACS, AMI, CHF, opiate dependence, dental abscess amongst others. Emergent evaluation with EKG, CXR, labs undertaken. Treatment with analgesics, aspirin, nitrates, morphine, albuterol. EKG without AMI. CXR with CHF. Labs sig for normal WBC, elevated bicarb, elevated BNP. Antibiotics were begun for the periodontal abscess. The patient had some improvement with morphine. She still is having pain and a dose of morphine was repeated. Due to nature of pain, patient needs ACS excluded. Admit telemetry Dr. Ro. Laboratory Tests Test 02/01/17 19:50 White Blood Count 9.2 K/UL (4.8-10.8) Red Blood Count 4.54 M/UL (4.20-5.40) Hemoglobin 10.6 G/DL (12.0-16.0) L Hematocrit 35.4 % (37.0-47.0) L Mean Corpuscular Volume 78 FL (80-99) L Mean Corpuscular Hemoglobin 23.3 PG (27.0-31.0) L Mean Corpuscular Hemoglobin Concent 29.9 G/DL (32.0-36.0) L Red Cell Distribution Width 19.9 % (11.6-14.8) H Platelet Count 222 K/UL (150-450) Mean Platelet Volume 6.2 FL (6.5-10.1) L Neutrophils (%) (Auto) 61.6 % (45.0-75.0) Lymphocytes (%) (Auto) 29.1 % (20.0-45.0) Monocytes (%) (Auto) 5.5 % (1.0-10.0) Eosinophils (%) (Auto) 2.7 % (0.0-3.0) Basophils (%) (Auto) 1.0 % (0.0-2.0) Prothrombin Time 9.3 SEC (9.30-11.50) Prothrombin Time INR 0.9 (0.9-1.1) PTT 23 SEC (23-33) Sodium Level 144 mEQ/L (135-145) Potassium Level 3.7 mEQ/L (3.4-4.9) Chloride Level 101 mEQ/L (98-107) Carbon Dioxide Level 31 mEQ/L (20-30) H Anion Gap 12 (5-15) Blood Urea Nitrogen 7 mg/dL (7-23) Creatinine 0.8 mg/dL (0.5-0.9) Estimate Glomerular Filtration Rate > 60 mL/min (>60) Glucose Level 105 mg/dL (74-106) Calcium Level 9.1 mg/dL (8.6-10.2) Total Bilirubin 0.4 mg/dL (0.0-1.2) Aspartate Amino Transferase (AST) 10 U/L (5-40) Alanine Aminotransferase (ALT) 9 U/L (3-33) Alkaline Phosphatase 57 U/L (35-104) Total Creatine Kinase 39 U/L (26-140) Troponin I < 0.30 ng/mL (<=0.30) Pro-B-Type Natriuretic Peptide 801 pg/mL (0-125) H Total Protein 6.6 g/dL (6.6-8.7) Albumin 3.9 g/dL (3.5-5.2) Globulin 2.7 g/dL Albumin/Globulin Ratio 1.4 (1.0-2.7) EKG Diagnostic Results Rate: normal Rhythm: NSR ST Segments: no acute changes Rhythm Strip Diag. Results EP Interpretation: yes Rhythm: NSR, no PVC's, no ectopy Chest X-Ray Diagnostic Results Findings: no pneumothorax, other - chf/cardiomegally Last Vital Signs Date Time Temp Pulse Resp B/P Pulse Ox O2 Delivery O2 Flow Rate FiO2 02/02/17 05:01 88 02/02/17 04:09 98.8 19 130/71 94 Nasal Cannula 2.0 02/01/17 21:24 28 Status: improved Disposition: ADMITTED INPATIENT Condition: Serious Referrals: NON PHYSICIAN (PCP) Daquan Love M.D. Feb 01, 2017 19:50
[2017-02-01 20:24] LABS: EOSINOPHILS % (AUTO) 2.7 % (0.0-3.0); LYMPHOCYTES % (AUTO) 29.1 % (20.0-45.0); MEAN CORPUSCULAR HEMOGLOBIN 23.3 PG (27.0-31.0); MEAN CORPUSCULAR HGB CONC 29.9 G/DL (32.0-36.0); MEAN CORPUSCULAR VOLUME 78 FL (80-99); MEAN PLATELET VOLUME 6.2 FL (6.5-10.1); MONOCYTES % (AUTO) 5.5 % (1.0-10.0); NEUTROPHILS % (AUTO) 61.6 % (45.0-75.0); PLATELET COUNT 222 K/UL (150-450); RED BLOOD COUNT 4.54 M/UL (4.20-5.40); RED CELL DISTRIBUTION WIDTH 19.9 % (11.6-14.8); WHITE BLOOD COUNT 9.2 K/UL (4.8-10.8)
[2017-02-01 20:29] LABS: INR 0.9 (0.9-1.1); PROTHROMBIN TIME 9.3 SEC (9.30-11.50)
[2017-02-01 20:36] LABS: TROPONIN I < 0.30 ng/mL (<=0.30)
[2017-02-01 20:39] LABS: ALANINE AMINOTRANSFERASE 9 U/L (3-33); ALBUMIN/GLOBULIN RATIO 1.4 (1.0-2.7); ANION GAP 12 (5-15); ASPARTATE AMINO TRANSFERASE 10 U/L (5-40); CALCIUM 9.1 mg/dL (8.6-10.2); CARBON DIOXIDE 31 mEQ/L (20-30); CHLORIDE 101 mEQ/L (98-107); CREATININE 0.8 mg/dL (0.5-0.9); GLOMERULAR FILTRATION RATE > 60 mL/min (>60); HEMOLYSIS 3; POTASSIUM 3.7 mEQ/L (3.4-4.9); SODIUM 144 mEQ/L (135-145); TOTAL PROTEIN 6.6 g/dL (6.6-8.7)
[2017-02-01 21:00] VITALS: BP 122/69
[2017-02-01] MEDS ORDERED: Ketorolac 30mg Inj IV PRN (22:15)
[2017-02-01] MEDS ORDERED: DuoNeb 0.5-3(2.5)mg/3ml neb HHN PRN (22:15)
[2017-02-01] MEDS ORDERED: Miralax 17gm pkt ORAL PRN (22:15)
[2017-02-01] MEDS ORDERED: Enalaprilat 2.5mg/2ml Inj IV PRN (22:15)
[2017-02-01] MEDS ORDERED: Diltiazem 25mg/5ml IV PRN (22:15)
[2017-02-01 23:30] VITALS: BP 105/51
[2017-02-02] MEDS: Morphine Sulfate 2mg/ml Inj IVP PRN ×5 (02:42→22:06)
[2017-02-02 04:09] VITALS: BP 130/71
[2017-02-02] MEDS: Heparin 5000 units/ml inj SUBQ SCH ×3 (06:43→21:05)
[2017-02-02] MEDS: NovoLOG Insulin Flexpen SUBQ SCH ×4 (06:44→21:11)
[2017-02-02 08:00] VITALS: BP 116/72
[2017-02-02 08:22] LABS: BASOPHILS % (AUTO) 1.4 % (0.0-2.0); EOSINOPHILS % (AUTO) 2.6 % (0.0-3.0); MEAN CORPUSCULAR HEMOGLOBIN 22.7 PG (27.0-31.0); MEAN CORPUSCULAR HGB CONC 29.4 G/DL (32.0-36.0); MEAN CORPUSCULAR VOLUME 77 FL (80-99); MEAN PLATELET VOLUME 6.1 FL (6.5-10.1); MONOCYTES % (AUTO) 6.4 % (1.0-10.0); NEUTROPHILS % (AUTO) 61.6 % (45.0-75.0); PLATELET COUNT 241 K/UL (150-450); RED CELL DISTRIBUTION WIDTH 20.2 % (11.6-14.8); WHITE BLOOD COUNT 8.6 K/UL (4.8-10.8)
[2017-02-02 08:34] LABS: INR 0.9 (0.9-1.1); PROTHROMBIN TIME 9.6 SEC (9.30-11.50)
[2017-02-02] MEDS: Aspirin Baby 81mg ORAL SCH (08:34)
[2017-02-02] MEDS: Metoprolol 25mg tab ORAL SCH ×2 (08:35→18:00)
[2017-02-02] MEDS: Lisinopril 10mg tab ORAL SCH (08:35)
[2017-02-02 08:44] LABS: TROPONIN I < 0.30 ng/mL (<=0.30)
[2017-02-02 08:54] LABS: THYROID STIMULATING HORMONE 4.28 uIU/mL (0.300-4.500)
[2017-02-02 08:58] LABS: CHOLESTEROL/HDL RATIO 2.3 (3.3-4.4); CRP QUANT 1.3 mg/dL (< 0.5)
--- NOTE | 2017-02-02 10:20 | Cardiology Progress Note ---
Assessment/Plan Assessment/Plan chest pain copd exacerbation chrniclly abn ekg obesity tobacco use do all torp neg ekg is unchanged since at least 11/2016 dc ntg repeat echo to see if new swma on echo copd rxn ischemia evaluation 04/28/2016 was neg may consider ctca as outpt [id number] Objective Last 24 Hour Vital Signs Date Time Temp Pulse Resp B/P Pulse Ox O2 Delivery O2 Flow Rate FiO2 02/02/17 08:35 82 116/72 02/02/17 08:35 116/72 02/02/17 08:00 96.7 82 17 116/72 95 Room Air 02/02/17 05:01 88 02/02/17 04:09 98.8 82 19 130/71 94 Nasal Cannula 2.0 02/02/17 00:05 84 23 105/51 95 Nasal Cannula 2.0 02/01/17 23:30 84 23 105/51 95 Nasal Cannula 2.0 02/01/17 23:27 98.4 02/01/17 22:33 98.4 02/01/17 22:09 130/69 02/01/17 21:24 76 18 100 Nasal Cannula 2.0 28 02/01/17 21:07 87 25 95 Nasal Cannula 2.0 28 02/01/17 21:06 83 25 Nasal Cannula 2.0 28 02/01/17 21:00 82 17 122/69 96 Nasal Cannula 2.0 02/01/17 19:00 81 20 Nasal Cannula 2.0 02/01/17 19:00 98.4 109 19 129/92 96 Nasal Cannula 2.0 02/01/17 18:41 98.4 81 20 147/79 98 Nasal Cannula 2.0 Intake and Output 02/01/17 02/02/17 18:59 06:59 Intake Total 55 ml Balance 55 ml Intake Oral 0 ml IV Total 55 ml # Voids 1 Laboratory Tests Test 02/01/17 19:50 02/02/17 07:28 White Blood Count 9.2 K/UL (4.8-10.8) 8.6 K/UL (4.8-10.8) Red Blood Count 4.54 M/UL (4.20-5.40) 4.60 M/UL (4.20-5.40) Hemoglobin 10.6 G/DL (12.0-16.0) L 10.5 G/DL (12.0-16.0) L Hematocrit 35.4 % (37.0-47.0) L 35.6 % (37.0-47.0) L Mean Corpuscular Volume 78 FL (80-99) L 77 FL (80-99) L Mean Corpuscular Hemoglobin 23.3 PG (27.0-31.0) L 22.7 PG (27.0-31.0) L Mean Corpuscular Hemoglobin Concent 29.9 G/DL (32.0-36.0) L 29.4 G/DL (32.0-36.0) L Red Cell Distribution Width 19.9 % (11.6-14.8) H 20.2 % (11.6-14.8) H Platelet Count 222 K/UL (150-450) 241 K/UL (150-450) Mean Platelet Volume 6.2 FL (6.5-10.1) L 6.1 FL (6.5-10.1) L Neutrophils (%) (Auto) 61.6 % (45.0-75.0) 61.6 % (45.0-75.0) Lymphocytes (%) (Auto) 29.1 % (20.0-45.0) 28.0 % (20.0-45.0) Monocytes (%) (Auto) 5.5 % (1.0-10.0) 6.4 % (1.0-10.0) Eosinophils (%) (Auto) 2.7 % (0.0-3.0) 2.6 % (0.0-3.0) Basophils (%) (Auto) 1.0 % (0.0-2.0) 1.4 % (0.0-2.0) Prothrombin Time 9.3 SEC (9.30-11.50) 9.6 SEC (9.30-11.50) Prothromb Time International Ratio 0.9 (0.9-1.1) 0.9 (0.9-1.1) Activated Partial Thromboplast Time 23 SEC (23-33) 24 SEC (23-33) Sodium Level 144 mEQ/L (135-145) Potassium Level 3.7 mEQ/L (3.4-4.9) Chloride Level 101 mEQ/L (98-107) Carbon Dioxide Level 31 mEQ/L (20-30) H Anion Gap 12 (5-15) Blood Urea Nitrogen 7 mg/dL (7-23) Creatinine 0.8 mg/dL (0.5-0.9) Estimat Glomerular Filtration Rate > 60 mL/min (>60) Glucose Level 105 mg/dL (74-106) Calcium Level 9.1 mg/dL (8.6-10.2) Total Bilirubin 0.4 mg/dL (0.0-1.2) Aspartate Amino Transf (AST/SGOT) 10 U/L (5-40) Alanine Aminotransferase (ALT/SGPT) 9 U/L (3-33) Alkaline Phosphatase 57 U/L (35-104) Total Creatine Kinase 39 U/L (26-140) Troponin I < 0.30 ng/mL (<=0.30) < 0.30 ng/mL (<=0.30) Pro-B-Type Natriuretic Peptide 801 pg/mL (0-125) H Total Protein 6.6 g/dL (6.6-8.7) Albumin 3.9 g/dL (3.5-5.2) Globulin 2.7 g/dL Albumin/Globulin Ratio 1.4 (1.0-2.7) C-Reactive Protein, Quantitative 1.3 mg/dL (< 0.5) H Triglycerides Level 99 mg/dL (< 150) Cholesterol Level 152 mg/dL (< 200) LDL Cholesterol 65 mg/dL (60-99) HDL Cholesterol 67 mg/dL (> 60) H Cholesterol/HDL Ratio 2.3 (3.3-4.4) L Thyroid Stimulating Hormone (TSH) 4.280 uIU/mL (0.300-4.500) ANDI ZACARIAS Feb 02, 2017 10:20
--- NOTE | 2017-02-02 10:35 | Diagnostic Imaging Report ---
Indication: Chest pain Technique: One view of the chest Comparison: 01/21/2017 Findings: The heart is enlarged. Lungs and pleural spaces are clear. Previously demonstrated congestive changes have improved. Impression: Cardiomegaly. No definite acute process
[2017-02-02 12:00] VITALS: BP 121/62
--- NOTE | 2017-02-02 13:27 | History and Physical ---
History of Present Illness General Date patient seen: Feb 02, 2017 Reason for Hospitalization: Chest Pain Present Illness HPI 51 year old female with hx of Morbid obesity, COPD, smoking, CHF, presented to [place] ER with increasing sob, with dark greenish sputum, c/o swelling of legs , headache and dental pain, she mostly contributes to dental abscess. Allergies: Coded Allergies: Lettuce (Verified Allergy, Severe, Anaphylaxis, 06/24/15) Uncoded Allergies: seafood (Allergy, Severe, anaphylaxic shock, 12/11/16) all seafoo Medication History Scheduled Albuterol Sulfate* (Proair Hfa*), 2 PUFFS INH Q6H, (Reported) Amoxicillin* (Amoxil*), 500 MG ORAL THREE TIMES A DAY Aspirin* (Aspir 81*), 81 MG ORAL DAILY, (Reported) Atorvastatin Calcium* (Lipitor*), 80 MG ORAL BEDTIME, (Reported) Docusate Sodium* (Colace*), 100 MG ORAL DAILY, (Reported) Fluticasone/Salmeterol (Advair 250-50 Diskus), 1 PUFF INH EVERY 12 HOURS Furosemide* (Lasix*), 20 MG ORAL BID, (Reported) Hydroxyzine Pamoate* (Hydroxyzine Pamoate*), 50 MG ORAL HS, (Reported) Ibuprofen (Ibuprofen*), 800 MG ORAL THREE TIMES A DAY, (Reported) Isosorbide Dinitrate (Isosorbide Dinitrate*), 10 MG ORAL BID, (Reported) Levofloxacin (Levofloxacin*), 500 MG ORAL DAILY, (Reported) Lisinopril (Lisinopril*), 10 MG ORAL DAILY, (Reported) Methylprednisolone (Methylprednisolone), 4 MG ORAL .as directed Metoprolol Tartrate (Metoprolol Tartrate), 25 MG ORAL BID, (Reported) Nicotine (Nicotine Patch), 1 PATCH TDERMAL Q24H Sertraline Hcl* (Zoloft*), 200 MG ORAL DAILY, (Reported) Tiotropium [place]* (Spiriva*), 1 PUFF INH DAILY, (Reported) Tramadol Hcl (Tramadol Hcl), 50 MG ORAL BID, (Reported) Ziprasidone Hcl* (Geodon*), 40 MG ORAL TWICE A DAY, (Reported) Scheduled PRN Acetaminophen (Tylenol), 650 MG ORAL Q6H PRN for For Pain Acetaminophen With Codeine (T#3) (Tylenol #3 Tab*), 1 TAB ORAL EVERY 6 HOURS PRN for For Pain Codeine/Promethazine Hcl* (Promethazine-Codeine Syrup*), 5 ML ORAL Q6H PRN for For Cough, (Reported) Diphenhydramine Hcl* (Diphenhydramine Hcl*), 50 MG ORAL DAILY PRN for Itching, ( Reported) Ibuprofen* (Motrin*), 600 MG ORAL THREE TIMES A DAY PRN for For Pain, (Reported) Levalbuterol Tartrate (Xopenex Hfa), 15 GM IH EVERY 4 HOURS PRN for Shortness of Breath, (Reported) Ranitidine Hcl (Ranitidine Hcl), 150 MG ORAL BID PRN for GASTRITIS, (Reported) Miscellaneous Medications Nitroglycerin (Nitroglycerin), 0.4 MG SL, (Reported) [Qvar], 1 PUFF ORAL, (Reported) Patient History Healthcare decision maker pt alert and oriented Resuscitation status Full Code Advanced Directive on File No Past Medical/Surgical History Past Medical/Surgical History: (1) History of smoking (2) Sleep apnea (3) HTN (hypertension) (4) Morbid obesity (5) Diabetes mellitus Review of Systems Constitutional: Reports: weakness Eye: Reports: no symptoms Respiratory: Reports: shortness of breath, wheezing Cardiovascular: Reports: no symptoms Gastrointestinal: Reports: no symptoms Genitourinary: Reports: no symptoms Physical Exam General Appearance: WD/WN Lines, tubes and drains: peripheral, central line, chest tube HEENT: normocephalic, atraumatic Neck: non-tender, normal alignment Respiratory/Chest: chest wall non-tender, lungs clear Cardiovascular/Chest: normal peripheral pulses Last 24 Hour Vital Signs Date Time Temp Pulse Resp B/P Pulse Ox O2 Delivery O2 Flow Rate FiO2 02/02/17 12:41 96.7 02/02/17 12:00 98.2 70 18 121/62 98 Room Air 02/02/17 10:59 96.7 02/02/17 08:35 82 116/72 02/02/17 08:35 116/72 02/02/17 08:06 79 02/02/17 08:00 96.7 82 17 116/72 95 Room Air 02/02/17 07:38 79 20 Nasal Cannula 2.0 28 02/02/17 05:01 88 02/02/17 04:09 98.8 82 19 130/71 94 Nasal Cannula 2.0 02/02/17 00:05 84 23 105/51 95 Nasal Cannula 2.0 02/01/17 23:30 84 23 105/51 95 Nasal Cannula 2.0 02/01/17 23:27 98.4 02/01/17 22:33 98.4 02/01/17 22:09 130/69 02/01/17 21:24 76 18 100 Nasal Cannula 2.0 28 02/01/17 21:07 87 25 95 Nasal Cannula 2.0 28 02/01/17 21:06 83 25 Nasal Cannula 2.0 28 02/01/17 21:00 82 17 122/69 96 Nasal Cannula 2.0 02/01/17 19:00 81 20 Nasal Cannula 2.0 02/01/17 19:00 98.4 109 19 129/92 96 Nasal Cannula 2.0 02/01/17 18:41 98.4 81 20 147/79 98 Nasal Cannula 2.0 Intake and Output 02/01/17 02/02/17 19:00 07:00 Intake Total 0 ml 55 ml Balance 0 ml 55 ml Intake Oral 0 ml IV Total 55 ml # Voids 1 Laboratory Tests Test 02/01/17 19:50 02/02/17 07:28 White Blood Count 9.2 K/UL (4.8-10.8) 8.6 K/UL (4.8-10.8) Red Blood Count 4.54 M/UL (4.20-5.40) 4.60 M/UL (4.20-5.40) Hemoglobin 10.6 G/DL (12.0-16.0) L 10.5 G/DL (12.0-16.0) L Hematocrit 35.4 % (37.0-47.0) L 35.6 % (37.0-47.0) L Mean Corpuscular Volume 78 FL (80-99) L 77 FL (80-99) L Mean Corpuscular Hemoglobin 23.3 PG (27.0-31.0) L 22.7 PG (27.0-31.0) L Mean Corpuscular Hemoglobin Concent 29.9 G/DL (32.0-36.0) L 29.4 G/DL (32.0-36.0) L Red Cell Distribution Width 19.9 % (11.6-14.8) H 20.2 % (11.6-14.8) H Platelet Count 222 K/UL (150-450) 241 K/UL (150-450) Mean Platelet Volume 6.2 FL (6.5-10.1) L 6.1 FL (6.5-10.1) L Neutrophils (%) (Auto) 61.6 % (45.0-75.0) 61.6 % (45.0-75.0) Lymphocytes (%) (Auto) 29.1 % (20.0-45.0) 28.0 % (20.0-45.0) Monocytes (%) (Auto) 5.5 % (1.0-10.0) 6.4 % (1.0-10.0) Eosinophils (%) (Auto) 2.7 % (0.0-3.0) 2.6 % (0.0-3.0) Basophils (%) (Auto) 1.0 % (0.0-2.0) 1.4 % (0.0-2.0) Prothrombin Time 9.3 SEC (9.30-11.50) 9.6 SEC (9.30-11.50) Prothromb Time International Ratio 0.9 (0.9-1.1) 0.9 (0.9-1.1) Activated Partial Thromboplast Time 23 SEC (23-33) 24 SEC (23-33) Sodium Level 144 mEQ/L (135-145) Potassium Level 3.7 mEQ/L (3.4-4.9) Chloride Level 101 mEQ/L (98-107) Carbon Dioxide Level 31 mEQ/L (20-30) H Anion Gap 12 (5-15) Blood Urea Nitrogen 7 mg/dL (7-23) Creatinine 0.8 mg/dL (0.5-0.9) Estimat Glomerular Filtration Rate > 60 mL/min (>60) Glucose Level 105 mg/dL (74-106) Calcium Level 9.1 mg/dL (8.6-10.2) Total Bilirubin 0.4 mg/dL (0.0-1.2) Aspartate Amino Transf (AST/SGOT) 10 U/L (5-40) Alanine Aminotransferase (ALT/SGPT) 9 U/L (3-33) Alkaline Phosphatase 57 U/L (35-104) Total Creatine Kinase 39 U/L (26-140) Troponin I < 0.30 ng/mL (<=0.30) < 0.30 ng/mL (<=0.30) Pro-B-Type Natriuretic Peptide 801 pg/mL (0-125) H Total Protein 6.6 g/dL (6.6-8.7) Albumin 3.9 g/dL (3.5-5.2) Globulin 2.7 g/dL Albumin/Globulin Ratio 1.4 (1.0-2.7) C-Reactive Protein, Quantitative 1.3 mg/dL (< 0.5) H Triglycerides Level 99 mg/dL (< 150) Cholesterol Level 152 mg/dL (< 200) LDL Cholesterol 65 mg/dL (60-99) HDL Cholesterol 67 mg/dL (> 60) H Cholesterol/HDL Ratio 2.3 (3.3-4.4) L Thyroid Stimulating Hormone (TSH) 4.280 uIU/mL (0.300-4.500) Height (Feet): 5 Height (Inches): 4.00 Weight (Pounds): 296 Medications Current Medications Medications (Trade) Dose Ordered Sig/May Route PRN Reason Start Time Stop Time Status Last Admin Dose Admin Acetaminophen 650 mg 650 mg Q4H PRN ORAL Mild Pain/Temp > 100.5 02/02/17 10:15 03/04/17 10:14 02/02/17 10:00 Albuterol/ Ipratropium (DuoNeb 0.5-3(2.5)mg/3ml) 3 ml EVERY 4 HOURS PRN HHN Shortness of Breath 02/01/17 22:15 02/06/17 22:14 Aspirin (ASA) 162 mg DAILY ORAL 02/02/17 09:00 03/04/17 08:59 02/02/17 08:34 Atorvastatin Calcium (Lipitor) 80 mg BEDTIME ORAL 02/02/17 21:00 03/04/17 20:59 Dextrose (Dextrose 50%) STAT PRN IV Hypoglycemia 02/01/17 22:15 03/03/17 22:14 Diltiazem HCl (Cardizem) 10 mg EVERY HOUR PRN IV heart rate more than 120, 02/01/17 22:15 03/03/17 22:14 Enalaprilat (Vasotec) 2.5 mg EVERY 6 HOURS PRN IV sbp more than 160 02/01/17 22:15 03/03/17 22:14 Furosemide (Lasix) 20 mg BID ORAL 02/02/17 09:00 03/04/17 08:59 02/02/17 08:34 Heparin Sodium (Porcine) (Heparin 5000 units/ml) 5,000 units EVERY 8 HOURS SUBQ 02/02/17 06:00 03/04/17 05:59 02/02/17 06:43 Insulin Aspart (NovoLOG) BEFORE MEALS AND HS SUBQ 02/02/17 06:30 03/04/17 06:29 02/02/17 06:44 Lisinopril (Zestril) 10 mg DAILY ORAL 02/02/17 09:00 03/04/17 08:59 02/02/17 08:35 Metoprolol Tartrate (Lopressor) 25 mg BID ORAL 02/02/17 09:00 03/04/17 08:59 02/02/17 08:35 Morphine Sulfate (Morphine Sulfate) 2 mg EVERY 4 HOURS PRN IVP severe Pain (Pain Scale 7-10) 02/01/17 22:15 02/08/17 22:14 02/02/17 12:11 Ondansetron HCl (Zofran) 4 mg Q6H PRN IVP Nausea & Vomiting 02/01/17 22:15 03/03/17 22:14 Pantoprazole (Protonix) 40 mg DAILY ORAL 02/02/17 09:00 03/04/17 08:59 02/02/17 08:34 Piperacillin Sod/ Tazobactam Sod/ Dextrose (Zosyn/D5W) 110 ml @ 27.5 mls/hr EVERY 8 HOURS IVPB 02/02/17 14:00 02/07/17 13:59 UNV Polyethylene Glycol (Miralax) 17 gm DAILYPRN PRN ORAL Constipation 02/01/17 22:15 03/03/17 22:14 Temazepam (Restoril) 15 mg HSPRN PRN ORAL Insomnia 02/01/17 22:15 02/08/17 22:14 Assessment/Plan Problem List: (1) Purulent bronchitis ICD Codes: J41.1 - Mucopurulent chronic bronchitis SNOMED: 54894525 (2) COPD exacerbation ICD Codes: J44.1 - Chronic obstructive pulmonary disease with (acute) exacerbation SNOMED: 395182718 (3) Acute periodontal abscess ICD Codes: K05.219 - Aggressive periodontitis, localized, unspecified severity SNOMED: 34233249 (4) History of smoking ICD Codes: Z87.891 - Personal history of nicotine dependence SNOMED: 26874712222936988 (5) Sleep apnea ICD Codes: G47.30 - Sleep apnea, unspecified SNOMED: 64914812 (6) HTN (hypertension) ICD Codes: I10 - Essential (primary) hypertension SNOMED: 38715897 (7) Morbid obesity ICD Codes: E66.01 - Morbid obesity SNOMED: 232021393 (8) Diabetes mellitus ICD Codes: E11.9 - Type 2 diabetes mellitus without complications SNOMED: 59444509 Assessment/Plan respiratory treatment titrate fio2 to sat of 90% abx for bronchitis and dental abscess cardiology to see check sputum LAMIN NEWTON Feb 02, 2017 13:27
--- NOTE | 2017-02-02 14:32 | Cardiology Report ---
APPROVED REPORT EXAM: Two-dimensional and M-mode echocardiogram with Doppler and color Doppler. INDICATION Left ventricular function M-Mode DIMENSIONS IVSd1.5 (0.7-1.1cm)Left Atrium (MM)5.3 (1.6-4.0cm) LVDd5.5 (3.5-5.6cm)Aortic Root3.0 (2.0-3.7cm) PWd1.5 (0.7-1.1cm)Aortic Cusp Exc.2.1 (1.5-2.0cm) LVDs3.9 (2.5-4.0cm) PWs1.3 cm Technically difficult study due to poor acoustic windows. Normal left ventricular chamber size, systolic function and wall motion. Left ventricular ejection fraction estimated to be 55-60 %. Moderate left ventricular hypertrophy. Small anterior pericardial effusion. Right cardiac chamber sizes are within normal limits. Mild left atrial enlargement by 2D. Focal aortic valve sclerosis with adequate cusp excursion Thickened mitral valve leaflets with normal excursion. Moderate mitral annulus and aortic root calcification. Pulmonic valve not well visualized. Normal tricuspid valve structure. IVC is normal in size with physiologic collapse. A color flow and spectral Doppler study was performed and revealed: No aortic regurgitation. Trace mitral regurgitation. Left ventricular diastolic dysfunction. not obtainable due to arrhythmia. No tricuspid regurgitation.
[2017-02-02] MEDS: Piperacillin/Tazobactam 3.375 GM in D5W 110 ML IVPB SCH ×2 (14:44→21:04)
[2017-02-02 16:00] VITALS: BP 111/67
[2017-02-02 20:00] VITALS: BP 97/60
[2017-02-02] MEDS ORDERED: Atorvastatin 80mg tab ORAL SCH (21:00)
--- NOTE | 2017-02-02 21:38 | Consultation ---
DATE OF CONSULTATION: 02/02/2017 CARDIOLOGY CONSULTATION CONSULTING PHYSICIAN: Tyler Batista M.D. REFERRING PHYSICIAN: Win Ro M.D. REASON FOR REFERRAL: Chest pain. HISTORY OF PRESENT ILLNESS: This is a 51-year-old female, who is known to me from prior evaluation and hospitalization. The patient now presents because of sharp shooting pains in the chest wall area and the sensation of sharp stabbing pain on the left side of the chest. She also has some discomfort on both sides of the neck and also in the left arm as well. So, she presented with these episodes that have been ongoing for the past two days, more than 5 to 10 times a day, approximately 5 minutes or so each episode. No relieving or exacerbating factors identified. She presented to the hospital emergency room. She has received nitroglycerin. She has a severe pounding headache at the present time which feels disabling. She has chronic shortness of breath. She is not able to sleep in a bed. She actually sleeps in a chair for a number of years. She cannot sleep very well because of the shortness of breath. She has dyspnea on exertion. She has no PND. She has orthopnea as mentioned. No palpitations. No dizziness or lightheadedness. PAST MEDICAL HISTORY: Extensive as delineated on my previous consultations and includes history of high blood pressure, high cholesterol, "congestive heart failure," and COPD exacerbations multiple times, uterine fibroids, multiple admissions because of COPD exacerbations. Previous echocardiogram had shown ejection fraction of 50%, previously in 2017 her ejection fraction was normal. REVIEW OF SYSTEMS: Gastrointestinal: She has had some nausea today because of the headaches. Genitourinary: Negative except for five or six times of nocturia. Pulmonary: Positive for cough and wheezing. Constitutional: Negative. Neurological: Very disabling headache. ALLERGIES: She is allergic to lettuce and sea food. SOCIAL HISTORY: She does not smoke or drink alcoholic beverages at the present time, but she has used tobacco previously. PHYSICAL EXAMINATION: GENERAL: An obese female, in no respiratory distress, although she is in discomfort secondary to her headaches. LUNGS: Decreased breath sounds noted bilaterally. CARDIAC: Regular rate and rhythm. No heaves, thrills, or gallops noted. ABDOMEN: Soft and nontender. Positive bowel sounds. EXTREMITIES: There is no clubbing or cyanosis. No edema. NEUROLOGICAL: She is awake, alert, and responsive. She is having significant amount of headache in the bitemporal area, pulsating in nature. LABORATORY AND DIAGNOSTIC DATA: Telemetry data shows normal sinus rhythm. Electrocardiogram shows sinus rhythm with T-wave inversions in basically V1 through V6. Compared to her 12/11/2016 echocardiogram, these T-wave inversions were present at that time as well. Her other labs, white count of 8.6 with a hemoglobin of 10.5 and platelet count of 241,000. Her troponins are negative on two separate occasions. Sodium 144, potassium 3.7, chloride 101, bicarbonate 31, BUN of 7, creatinine 0.8, glucose of 105, and calcium is 9.1. ProBNP is only 801, she has had levels as low as 134 and as high as 1600. Total cholesterol is 152 with HDL of 67 and LDL of 65. TSH of 4.28. Her coagulations, INR 0.9 and PTT 24. No urinalysis is available. IMAGING: A chest x-ray was performed, the last on 01/21/2017, equivocal mild vascular congestion unchanged apparently from prior levels. I do not see a chest x-ray recently. The patient has had exercise Cardiolite perfusion imaging on 04/28/2016. She achieved more than 85% of maximum predicted heart rate and myocardial perfusion demonstrated homogeneous perfusion without any definitive fixed or reversible defect. Ejection fraction was 67% on that evaluation. ASSESSMENT: 1. Chronic obstructive pulmonary disease with exacerbation. 2. History of heart failure previously. Echocardiogram normal in November 2016 and Nuclear Medicine showed normal ejection fraction in March 2016. 3. Chest pains with normal perfusion imaging on 04/28/2016. 4. Obesity. 5. History of tobacco use disorder. 6. History of hypertension. 7. History of hyperlipidemia. RECOMMENDATION: Dr. Ro, this patient was seen in cardiac consultation. Her electrocardiogram is abnormal and appears to be chronically abnormal. Ischemia evaluation was performed approximately 10 months ago and was negative. Her cardiac enzymes so far are negative. We will repeat EKG. I will repeat an electrocardiogram. Her proBNP is not significantly elevated, but she is on diuretics twice a day at home that seemed not to have changed her shortness of breath issues, which I suspect is probably related to her COPD. A D-dimer will be checked and a repeat echocardiogram will be ordered and we will continue treatment for COPD. I may consider performing a CT coronary angiogram as an outpatient in the future. Tyler Batista M.D. DR: LUÍS JOB#: [id number] CC:
[2017-02-03 00:14] VITALS: BP 122/65
[2017-02-03 04:22] VITALS: BP 137/76
[2017-02-03] MEDS: Heparin 5000 units/ml inj SUBQ SCH ×3 (06:22→21:35)
[2017-02-03] MEDS: Piperacillin/Tazobactam 3.375 GM in D5W 110 ML IVPB SCH ×3 (06:23→21:31)
[2017-02-03] MEDS: NovoLOG Insulin Flexpen SUBQ SCH ×4 (06:24→21:34)
[2017-02-03] MEDS: Morphine Sulfate 2mg/ml Inj IVP PRN ×3 (06:25→17:28)
[2017-02-03 08:17] LABS: TROPONIN I < 0.30 ng/mL (<=0.30)
[2017-02-03 08:30] VITALS: BP 122/78
[2017-02-03] MEDS: Aspirin Baby 81mg ORAL SCH (08:41)
[2017-02-03] MEDS: Metoprolol 25mg tab ORAL SCH ×2 (08:43→17:54)
[2017-02-03] MEDS: Lisinopril 10mg tab ORAL SCH (08:43)
--- NOTE | 2017-02-03 09:40 | Diagnostic Imaging Report ---
APPROVED REPORT CPT Code: 34783 Present Symptoms Lower Extremity Edema: Bilateral Shortness of breath BILATERAL: Imaging reveals a patent deep venous system bilaterally. There is no evidence of thrombus within the femoral, popliteal or tibial segments. The greater saphenous veins are also within normal limits. Doppler indicates normal spontaneous flow within these segments.
[2017-02-03 11:44] VITALS: BP 114/65
--- NOTE | 2017-02-03 15:11 | Pulmonology Progress Note ---
Assessment/Plan Problems: (1) Purulent bronchitis (2) COPD exacerbation (3) Acute periodontal abscess (4) History of smoking (5) Sleep apnea (6) HTN (hypertension) (7) Morbid obesity (8) Diabetes mellitus Assessment/Plan respiratory treatment antitussives diuretics pt/to med/surg dc home in am Subjective ROS Limited/Unobtainable: No Constitutional: Reports: no symptoms HEENT: Repors: no symptoms Respiratory: Reports: no symptoms Allergies: Coded Allergies: Lettuce (Verified Allergy, Severe, Anaphylaxis, 06/24/15) Uncoded Allergies: seafood (Allergy, Severe, anaphylaxic shock, 12/11/16) all seafoo Objective Last 24 Hour Vital Signs Date Time Temp Pulse Resp B/P Pulse Ox O2 Delivery O2 Flow Rate FiO2 02/03/17 12:00 80 02/03/17 11:44 97.9 71 20 114/65 95 Nasal Cannula 3.0 02/03/17 08:43 102 122/78 02/03/17 08:43 122/78 02/03/17 08:30 97.7 102 20 122/78 95 Nasal Cannula 3.0 02/03/17 08:00 85 02/03/17 06:30 83 18 Nasal Cannula 2.0 28 02/03/17 06:30 Nasal Cannula 2.0 28 02/03/17 06:30 97 Nasal Cannula 2.0 28 02/03/17 04:22 98.4 80 19 137/76 97 Room Air 02/03/17 04:00 90 02/03/17 02:51 82 19 95 Facial 35 02/03/17 01:18 79 19 95 Facial 35 02/03/17 00:14 98.8 82 18 122/65 98 Nasal Cannula 2.0 02/03/17 00:00 72 02/02/17 22:36 97.7 02/02/17 20:00 97.7 79 19 97/60 Nasal Cannula 2.0 89 02/02/17 20:00 75 02/02/17 19:41 Nasal Cannula 2.0 02/02/17 19:41 97 Nasal Cannula 2.0 02/02/17 19:40 76 18 Nasal Cannula 2.0 28 02/02/17 18:00 79 97/60 02/02/17 16:00 98.8 71 18 111/67 Nasal Cannula 2.0 95 02/02/17 16:00 70 Intake and Output 02/02/17 02/03/17 19:00 07:00 Intake Total 250 ml Balance 250 ml Intake Oral 250 ml # Voids 2 2 Objective General Appearance: WD/WN Lines, tubes and drains: peripheral, central line HEENT: normocephalic, atraumatic Neck: non-tender, normal alignment Respiratory/Chest: chest wall non-tender, lungs clear Cardiovascular/Chest: normal peripheral pulses Genitourinary/Rectal: normal genital exam Extremities: normal range of motion Laboratory Tests 02/03/17 07:05: Troponin I < 0.30, Pro-B-Type Natriuretic Peptide 70 Current Medications Medications (Trade) Dose Ordered Sig/May Route PRN Reason Start Time Stop Time Status Last Admin Dose Admin Acetaminophen 650 mg 650 mg Q4H PRN ORAL Mild Pain/Temp > 100.5 02/02/17 10:15 03/04/17 10:14 02/02/17 10:00 Albuterol/ Ipratropium (DuoNeb 0.5-3(2.5)mg/3ml) 3 ml EVERY 4 HOURS PRN HHN Shortness of Breath 02/01/17 22:15 02/06/17 22:14 Aspirin (ASA) 162 mg DAILY ORAL 02/02/17 09:00 03/04/17 08:59 02/03/17 08:41 Atorvastatin Calcium (Lipitor) 80 mg BEDTIME ORAL 02/02/17 21:00 03/04/17 20:59 02/02/17 21:04 Dextrose (Dextrose 50%) STAT PRN IV Hypoglycemia 02/01/17 22:15 03/03/17 22:14 Diltiazem HCl (Cardizem) 10 mg EVERY HOUR PRN IV heart rate more than 120, 02/01/17 22:15 03/03/17 22:14 Enalaprilat (Vasotec) 2.5 mg EVERY 6 HOURS PRN IV sbp more than 160 02/01/17 22:15 03/03/17 22:14 Furosemide (Lasix) 20 mg BID ORAL 02/02/17 09:00 03/04/17 08:59 02/03/17 08:42 Heparin Sodium (Porcine) (Heparin 5000 units/ml) 5,000 units EVERY 8 HOURS SUBQ 02/02/17 06:00 03/04/17 05:59 02/03/17 14:26 Insulin Aspart (NovoLOG) BEFORE MEALS AND HS SUBQ 02/02/17 06:30 03/04/17 06:29 02/03/17 11:38 Lisinopril (Zestril) 10 mg DAILY ORAL 02/02/17 09:00 03/04/17 08:59 02/03/17 08:43 Metoprolol Tartrate (Lopressor) 25 mg BID ORAL 02/02/17 09:00 03/04/17 08:59 02/03/17 08:43 Morphine Sulfate (Morphine Sulfate) 2 mg EVERY 4 HOURS PRN IVP severe Pain (Pain Scale 7-10) 02/01/17 22:15 02/08/17 22:14 02/03/17 11:36 Ondansetron HCl (Zofran) 4 mg Q6H PRN IVP Nausea & Vomiting 02/01/17 22:15 03/03/17 22:14 Pantoprazole (Protonix) 40 mg DAILY ORAL 02/02/17 09:00 03/04/17 08:59 02/03/17 08:42 Piperacillin Sod/ Tazobactam Sod/ Dextrose (Zosyn/D5W) 110 ml @ 27.5 mls/hr EVERY 8 HOURS IVPB 02/02/17 15:00 02/07/17 14:59 02/03/17 14:23 Polyethylene Glycol (Miralax) 17 gm DAILYPRN PRN ORAL Constipation 02/01/17 22:15 03/03/17 22:14 Temazepam (Restoril) 15 mg HSPRN PRN ORAL Insomnia 02/01/17 22:15 02/08/17 22:14 02/03/17 00:52 LAMIN NEWTON Feb 03, 2017 15:11
[2017-02-03] MEDS ORDERED: Promethazine/Codeine 5ml UD ORAL PRN ×2 (15:15→23:15)
--- NOTE | 2017-02-03 16:05 | Cardiology Report ---
APPROVED REPORT EKG Measurement Heart [id number] Normal sinus rhythm T wave abnormality, consider anterolateral ischemia Prolonged QT Abnormal ECG
[2017-02-03 16:40] VITALS: BP 109/42
[2017-02-03] MEDS ORDERED: Tubing IV Secondary IV ONE (17:31)
[2017-02-03] MEDS ORDERED: NS 275ml ONE (17:31)
[2017-02-03 20:00] VITALS: BP 130/70
--- NOTE | 2017-02-03 20:30 | Cardiology Progress Note ---
Assessment/Plan Assessment/Plan chest pain no myonecrosis (cough relateda) copd exacerbation chronically abn ekg obesity tobacco use do all torp neg ekg is unchanged since at least 11/2016 repeat echo neg copd rxn ischemia evaluation 04/28/2016 was neg may consider ctca as outpt probnp normal understand to fu with me as out pt Subjective Cardiovascular: Denies: chest pain - unless cough , lightheadedness, palpitations Respiratory: Reports: cough, shortness of breath Gastrointestinal/Abdominal: Denies: abdominal pain Genitourinary: Reports: burning Objective Last 24 Hour Vital Signs Date Time Temp Pulse Resp B/P Pulse Ox O2 Delivery O2 Flow Rate FiO2 02/03/17 19:26 75 20 Nasal Cannula 2.0 28 02/03/17 19:26 97 Nasal Cannula 2.0 28 02/03/17 19:26 Nasal Cannula 2.0 28 02/03/17 17:54 81 135/77 02/03/17 16:40 97.3 73 20 109/42 98 Nasal Cannula 3.0 02/03/17 16:00 80 02/03/17 12:00 80 02/03/17 11:44 97.9 71 20 114/65 95 Nasal Cannula 3.0 02/03/17 08:43 102 122/78 02/03/17 08:43 122/78 02/03/17 08:30 97.7 102 20 122/78 95 Nasal Cannula 3.0 02/03/17 08:00 85 02/03/17 06:30 83 18 Nasal Cannula 2.0 28 02/03/17 06:30 Nasal Cannula 2.0 28 02/03/17 06:30 97 Nasal Cannula 2.0 28 02/03/17 04:22 98.4 80 19 137/76 97 Room Air 02/03/17 04:00 90 02/03/17 02:51 82 19 95 Facial 35 02/03/17 01:18 79 19 95 Facial 35 02/03/17 00:14 98.8 82 18 122/65 98 Nasal Cannula 2.0 02/03/17 00:00 72 02/02/17 22:36 97.7 General Appearance: no apparent distress, alert, obese Cardiovascular: normal rate, regular rhythm Respiratory/Chest: lungs clear, decreased breath sounds Abdomen: normal bowel sounds, non tender, soft Extremities: trace edema Intake and Output 02/02/17 02/03/17 19:00 07:00 Intake Total 250 ml Balance 250 ml Intake Oral 250 ml # Voids 2 2 Laboratory Tests Test 02/03/17 07:05 Troponin I < 0.30 ng/mL (<=0.30) Pro-B-Type Natriuretic Peptide 70 pg/mL (0-125) ANDI ZACARIAS Feb 03, 2017 20:30
[2017-02-03] MEDS ORDERED: Atorvastatin 20mg tab ORAL SCH (21:00)
[2017-02-03] MEDS ORDERED: Atorvastatin 80mg tab ORAL SCH (21:00)
[2017-02-03 22:27] LABS: TROPONIN I < 0.30 ng/mL (<=0.30)
[2017-02-03] MEDS ORDERED: Enalaprilat 2.5mg/2ml Inj IV PRN (23:00)
[2017-02-03] MEDS ORDERED: Miralax 17gm pkt ORAL PRN (23:00)
[2017-02-03] MEDS ORDERED: DuoNeb 0.5-3(2.5)mg/3ml neb HHN PRN (23:00)
[2017-02-03] MEDS ORDERED: Diltiazem 25mg/5ml IV PRN (23:00)
[2017-02-04] VITALS: BP 129/55
[2017-02-04 04:00] VITALS: BP 116/58
[2017-02-04] MEDS: Piperacillin/Tazobactam 3.375 GM in D5W 110 ML IVPB SCH ×2 (06:10→13:29)
[2017-02-04] MEDS: Heparin 5000 units/ml inj SUBQ SCH ×2 (06:11→13:32)
[2017-02-04] MEDS: NovoLOG Insulin Flexpen SUBQ SCH ×3 (06:13→17:17)
[2017-02-04 08:00] VITALS: BP 151/59
[2017-02-04 08:25] LABS: BASOPHILS % (AUTO) 0.7 % (0.0-2.0); EOSINOPHILS % (AUTO) 3.5 % (0.0-3.0); MEAN CORPUSCULAR HGB CONC 29.6 G/DL (32.0-36.0); MEAN CORPUSCULAR VOLUME 78 FL (80-99); MONOCYTES % (AUTO) 4.8 % (1.0-10.0); PLATELET COUNT 234 K/UL (150-450); RED BLOOD COUNT 4.62 M/UL (4.20-5.40); RED CELL DISTRIBUTION WIDTH 20.8 % (11.6-14.8); WHITE BLOOD COUNT 7.3 K/UL (4.8-10.8)
[2017-02-04 08:37] LABS: ALANINE AMINOTRANSFERASE 8 U/L (3-33); ALBUMIN/GLOBULIN RATIO 1.4 (1.0-2.7); ANION GAP 11 (5-15); ASPARTATE AMINO TRANSFERASE 11 U/L (5-40); CARBON DIOXIDE 35 mEQ/L (20-30); CHLORIDE 97 mEQ/L (98-107); CREATININE 0.8 mg/dL (0.5-0.9); GLOMERULAR FILTRATION RATE > 60 mL/min (>60); HEMOLYSIS 0; POTASSIUM 3.6 mEQ/L (3.4-4.9); SODIUM 143 mEQ/L (135-145); TOTAL PROTEIN 6.5 g/dL (6.6-8.7)
[2017-02-04] MEDS ORDERED: Lisinopril 10mg tab ORAL SCH (09:00)
[2017-02-04] MEDS ORDERED: Aspirin Baby 81mg ORAL SCH ×2 (09:00)
[2017-02-04] MEDS ORDERED: Metoprolol 25mg tab ORAL SCH (09:00)
[2017-02-04] MEDS: Morphine Sulfate 2mg/ml Inj IVP PRN ×2 (09:57→16:01)
[2017-02-04 11:56] VITALS: BP 124/75
--- NOTE | 2017-02-04 15:13 | General Progress Note ---
Progress Note Progress Note Ms Christina Jimenez requires a non-invasive mechanical ventilator for treatment of his chronic respiratory failure resulting from COPD, CPAP and BIPA are no longer effective and a Ventilator is now required. LAMIN NEWTON Feb 04, 2017 15:13
[2017-02-04 16:00] VITALS: BP 134/64
--- NOTE | 2017-02-04 16:51 | Pulmonology Progress Note ---
Assessment/Plan Problems: (1) Purulent bronchitis (2) COPD exacerbation (3) Acute periodontal abscess (4) History of smoking (5) Sleep apnea (6) HTN (hypertension) (7) Morbid obesity (8) Diabetes mellitus Assessment/Plan respiratory treatment antitussives diuretics pt/to med/surg dc home today with high flow air Subjective ROS Limited/Unobtainable: No Allergies: Coded Allergies: Lettuce (Verified Allergy, Severe, Anaphylaxis, 06/24/15) Uncoded Allergies: seafood (Allergy, Severe, anaphylaxic shock, 12/11/16) all seafoo Objective Last 24 Hour Vital Signs Date Time Temp Pulse Resp B/P Pulse Ox O2 Delivery O2 Flow Rate FiO2 02/04/17 16:00 96.0 74 20 134/64 97 Nasal Cannula 3.0 02/04/17 11:56 97.7 77 16 124/75 98 Nasal Cannula 02/04/17 08:26 92 151/59 02/04/17 08:25 151/59 02/04/17 08:03 95 Nasal Cannula 2.0 28 02/04/17 08:03 67 20 Nasal Cannula 2.0 28 02/04/17 08:03 67 20 95 Nasal Cannula 2.0 28 02/04/17 08:03 Nasal Cannula 2.0 28 02/04/17 08:00 96.4 92 20 151/59 98 Nasal Cannula 2.0 02/04/17 04:00 97.3 87 20 116/58 91 Nasal Cannula 2.0 02/04/17 00:00 97.0 68 22 129/55 91 Nasal Cannula 2.0 02/03/17 22:09 70 23 98 Facial 35 02/03/17 20:00 97.7 67 20 130/70 95 Nasal Cannula 3.0 02/03/17 20:00 78 02/03/17 19:26 75 20 Nasal Cannula 2.0 28 02/03/17 19:26 97 Nasal Cannula 2.0 28 02/03/17 19:26 Nasal Cannula 2.0 28 02/03/17 17:54 81 135/77 Intake and Output 02/03/17 02/04/17 19:00 07:00 Intake Total 590.0 ml 250 ml Output Total 350 ml 700 ml Balance 240.0 ml -450 ml Intake Oral 480 ml 250 ml IV Total 110.0 ml Output Urine Total 350 ml 700 ml # Voids 4 Objective General Appearance: WD/WN Lines, tubes and drains: peripheral, central line HEENT: normocephalic, atraumatic Neck: non-tender, normal alignment Respiratory/Chest: chest wall non-tender, lungs clear Cardiovascular/Chest: normal peripheral pulses Genitourinary/Rectal: normal genital exam Extremities: normal range of motion Laboratory Tests 02/03/17 22:05: Troponin I < 0.30 02/04/17 07:53: White Blood Count 7.3, Red Blood Count 4.62, Hemoglobin 10.6L, Hematocrit 35.8L , Mean Corpuscular Volume 78L, Mean Corpuscular Hemoglobin 23.0L, Mean Corpuscular Hemoglobin Concent 29.6L, Red Cell Distribution Width 20.8H, Platelet Count 234, Mean Platelet Volume 6.0L, Neutrophils (%) (Auto) 67.0, Lymphocytes (%) (Auto) 24.0, Monocytes (%) (Auto) 4.8, Eosinophils (%) (Auto) 3.5H, Basophils (%) (Auto) 0.7, Sodium Level 143, Potassium Level 3.6, Chloride Level 97L, Carbon Dioxide Level 35H, Anion Gap 11, Blood Urea Nitrogen 10, Creatinine 0.8, Estimat Glomerular Filtration Rate > 60, Glucose Level 137H, Calcium Level 9.0, Total Bilirubin 0.2, Aspartate Amino Transf (AST/SGOT) 11, Alanine Aminotransferase (ALT/SGPT) 8, Alkaline Phosphatase 53, Pro-B-Type Natriuretic Peptide 49, Total Protein 6.5L, Albumin 3.8, Globulin 2.7, Albumin/ Globulin Ratio 1.4 Current Medications Medications (Trade) Dose Ordered Sig/May Route PRN Reason Start Time Stop Time Status Last Admin Dose Admin Acetaminophen (Tylenol) 650 mg Q4H PRN ORAL Mild Pain/Temp > 100.5 02/03/17 23:00 03/05/17 22:59 Albuterol/ Ipratropium (DuoNeb 0.5-3(2.5)mg/3ml) 3 ml Q4H PRN HHN Shortness of Breath 02/03/17 23:00 02/08/17 22:59 02/04/17 08:03 Aspirin (ASA) 81 mg DAILY ORAL 02/04/17 09:00 03/06/17 08:59 3/9/17 08:25 Atorvastatin Calcium (Lipitor) 20 mg BEDTIME ORAL 02/04/17 21:00 03/06/17 20:59 Dextrose (Dextrose 50%) STAT PRN IV Hypoglycemia 02/03/17 23:00 03/05/17 22:59 Enalaprilat (Vasotec) 2.5 mg Q6H PRN IV sbp more than 160 02/03/17 23:00 03/05/17 22:59 Furosemide (Lasix) 20 mg BID ORAL 02/04/17 09:00 03/06/17 08:59 02/04/17 08:26 Heparin Sodium (Porcine) (Heparin 5000 units/ml) 5,000 units EVERY 8 HOURS SUBQ 02/04/17 06:00 03/06/17 05:59 02/04/17 13:32 Insulin Aspart (NovoLOG) BEFORE MEALS AND HS SUBQ 02/04/17 06:30 03/06/17 06:29 02/04/17 06:13 Lisinopril (Zestril) 10 mg DAILY ORAL 02/04/17 09:00 03/06/17 08:59 02/04/17 08:25 Metoprolol Tartrate (Lopressor) 25 mg BID@0900,2100 ORAL 02/04/17 09:00 03/06/17 08:59 02/04/17 08:26 Morphine Sulfate (Morphine Sulfate) 2 mg Q4H PRN IVP severe Pain (Pain Scale 7-10) 02/03/17 23:30 02/10/17 23:29 02/04/17 16:01 Ondansetron HCl (Zofran) 4 mg Q6H PRN IVP Nausea & Vomiting 02/03/17 23:00 03/05/17 22:59 Pantoprazole (Protonix) 40 mg DAILY ORAL 02/04/17 09:00 03/06/17 08:59 02/04/17 08:26 Piperacillin Sod/ Tazobactam Sod/ Dextrose (Zosyn/D5W) 110 ml @ 27.5 mls/hr EVERY 8 HOURS IVPB 02/04/17 06:00 02/09/17 05:59 02/04/17 13:29 Polyethylene Glycol (Miralax) 17 gm DAILYPRN PRN ORAL Constipation 02/03/17 23:00 03/05/17 22:59 Promethazine HCl/ Codeine (Phenergan with Codeine) 5 ml Q4H PRN ORAL For Cough 02/03/17 23:15 03/05/17 23:14 02/04/17 09:53 Temazepam (Restoril) 15 mg HSPRN PRN ORAL Insomnia 02/04/17 21:00 02/11/17 20:59 LAMIN NEWTON Feb 04, 2017 16:51
[2017-02-04] MEDS ORDERED: GUAIFENESIN-CO118 M1 ORAL ×2 (18:50→18:51)
[2017-02-04] MEDS ORDERED: Atorvastatin 20mg tab ORAL SCH (21:00)
--- NOTE | 2017-02-05 14:12 | Discharge Summary ---
Discharge Summary Hospital Course Date of Admission Feb 01, 2017 at 19:34 Date of Discharge Feb 04, 2017 at 19:40 Admitting Diagnosis ACS/dental abscess KATIE Jimenez is a 51 year old female who was admitted on Feb 01, 2017 at 19:34 for Acute Coronary Syndrome/Dental Abscess Hospital Course [id number] Discharge Discharge Disposition Patient was discharged to Home with Home Health(06) Discharge Diagnoses: Jessica Emanuel NP Feb 05, 2017 14:12
--- NOTE | 2017-02-06 00:29 | Discharge Summary 2 SIG ---
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 BRIEF HOSPITAL COURSE: The patient is a 51-year-old female with morbid obesity, COPD, smoker, and CHF, presented to [place] [facility] with increasing shortness of breath with productive sputum and complaining of swelling of legs, headache, and dental pain. She states she has chest pain radiating to the left shoulder and has COPD, and has been using her inhalers and nebulizer without relief. On evaluation at ED, chest x-ray showed congestive heart failure. BNP was elevated to 801. Troponin was negative. Antibiotics were started due to perioral abscess. Dr. Batista was consulted. Previous echocardiogram from prior admission showed EF of 50%. She had a prior exercise Cardiolite perfusion imaging on 04/28/2016, where she achieved more than 85% of maximum predicted heart rate and myocardial perfusion demonstrated homogeneous perfusion without any definitive fixed or reversible defect. She was continued on diuretics. Venous duplex of lower extremity was negative for DVT. She was given physical therapy and occupational therapy with respiratory treatment. She was eventually discharged home with home health. FINAL DIAGNOSES: 1. Acute on chronic obstructive pulmonary disease exacerbation. 2. Acute purulent bronchitis. 3. Acute periodontal abscess. 4. Smoker. 5. Morbid obesity. 6. Sleep apnea. 7. Hypertension. 8. Diabetes mellitus. Win Ro M.D. I have been assigned to dictate discharge summary on this account and I was not involved in the patient's management. Jessica Emanuel N.P. DR: JD JOB#: [id number] CC: MARGUERITE
--- NOTE | 2017-02-06 15:11 | Cardiology Report ---
APPROVED REPORT EKG Measurement Heart [id number] Normal sinus rhythm Normal ECG
== END 2017-02-04 19:40 | disposition home health service (06) | DRG 191 ==
LOC: EMR 19:32 → 2E 19:34 → EDBEDREQ 23:29 → 2E 02-03 00:57 → 4E 02-03 22:54
DX: J44.0 Chronic obstructive pulmonary disease with (acute) lower respiratory infection (principal); Z68.43 Body mass index [BMI] 50.0-59.9, adult; I50.9 Heart failure, unspecified; E66.01 Morbid (severe) obesity due to excess calories; I10 Essential (primary) hypertension; J20.9 Acute bronchitis, unspecified; J44.1 Chronic obstructive pulmonary disease with (acute) exacerbation; K05.219 Aggressive periodontitis, localized, unspecified severity; G47.30 Sleep apnea, unspecified; E11.9 Type 2 diabetes mellitus without complications; F17.200 Nicotine dependence, unspecified, uncomplicated; E78.5 Hyperlipidemia, unspecified
CPT/HCPCS: 36415; 71010; 80053; 80061; 82550; 82962; 83880; 84443; 84484; 85025; 85610; 85730; 86140; 93005; 93306; 93970; 94640; 94664; 94760; J1815; J2405; J7620

== ENCOUNTER 2017-03-17 12:27 | Inpatient (IN) | payer MEDICARE, OTHER ==
[~2017-03-17] VITALS: Ht 152.4 cm; Wt 135.6 kg
[~2017-03-17 12:27] MED LIST changes: +GUAIFENESIN-CO118 M1 ORAL
[2017-03-17 12:51] VITALS: BP 133/64
[2017-03-17 13:00] VITALS: BP 137/69
--- NOTE | 2017-03-17 13:06 | Emergency Room Report ---
History of Present Illness General Chief Complaint: Dyspnea/Respdistress Source: Patient, Family Member, Medical Record, EMS Present Illness HPI 51YOF BIBEMS with acute SOB today. Recent cough. No fever/chills. Compliant with lasix. On Home O2, 2L chronically. Family member raised O2 to 3L without improvement. Was given 2x nebs by EMS. Per EMR, admission in January 2017 for similar presentation. COPD/CHF exac. EF 50%. Perfusion scan 85% Doppler negative for DVT. Allergies: Coded Allergies: Lettuce (Verified Allergy, Severe, Anaphylaxis, 06/24/15) Uncoded Allergies: seafood (Allergy, Severe, anaphylaxic shock, 12/11/16) all seafoo Patient History Past Medical History: DM, HTN, CHF, COPD Social History: Reports: smoking Now: No Nursing Documentation-PMH Hx Cardiac Problems: Yes - CHF Hx Hypertension: Yes Hx Pacemaker: No Hx Asthma: Yes Hx COPD: Yes Hx Diabetes: No Hx Cancer: No Hx Gastrointestinal Problems: No Hx Dialysis: No History Of Psychiatric Problem: No Hx Neurological Problems: No Hx Cerebrovascular Accident: No Hx Seizures: No Hx Dizziness: Yes Hx Headaches: Yes Review of Systems All Other Systems: negative except mentioned in HPI Physical Exam Vital Signs Date Time Temp Pulse Resp B/P Pulse Ox O2 Delivery O2 Flow Rate FiO2 03/17/17 12:22 98.1 80 20 15/80 98 Simple Mask 03/17/17 12:51 2.0 03/17/17 12:55 50 Sp02 EP Interpretation: reviewed, normal General Appearance: normal inspection, well appearing, alert, GCS 15, non-toxic , mild distress, obese Head: normocephalic, atraumatic Eyes: bilateral eye EOMI, bilateral eye PERRL ENT: normal ENT inspection, hearing grossly normal, normal voice Neck: normal inspection, full range of motion, supple, no bony tend Respiratory: normal inspection, lungs clear, normal breath sounds, no rhonchi, no respiratory distress, no retraction, no accessory muscle use, no wheezing, crackles, speaking full sentences Cardiovascular #1: regular rate, rhythm, no edema Gastrointestinal: normal inspection, normal bowel sounds, non tender, soft, no guarding, no hernia Genitourinary: no CVA tenderness Musculoskeletal: normal inspection, back normal, normal range of motion, Aquilino' s Sign negative Neurologic: normal inspection, alert, oriented x3, responsive, sales and service consultant III-XII nml as tested, motor strength/tone normal, speech normal Psychiatric: normal inspection, judgement/insight normal, mood/affect normal Skin: normal inspection, normal color, no rash Medical Decision Making Diagnostic Impression: Primary Impression: Dyspnea Qualified Codes: R06.00 - Dyspnea, unspecified Additional Impressions: Acute exacerbation of CHF (congestive heart failure) Qualified Codes: I50.9 - Heart failure, unspecified Pulmonary edema Qualified Codes: J81.0 - Acute pulmonary edema ER Course Likely multifactorial, CHF > COPD. Afebrile. Improved with Bipap Lasix given Labs: No leuks. H&H stable. Troponin 0. BNP slight elevation CXR: CHF, possibly PNA Blood Cx sent Empiric Abx given Endorsed to Dr Ro for MICKEY admission at 2pm EKG Diagnostic Results Rate: other - TWI in 2, 3, AVF, V2-6 (seen on previous) Rhythm Strip Diag. Results EP Interpretation: yes Rate: 75 Rhythm: NSR, no PVC's, no ectopy Chest X-Ray Diagnostic Results EP Interpretation: Yes Findings: other - Bilateral pulm congestion vs parenchymal disease Number of Views: 1 Last Vital Signs Date Time Temp Pulse Resp B/P Pulse Ox O2 Delivery O2 Flow Rate FiO2 03/17/17 13:00 50 03/17/17 12:55 60 33 100 Facial 03/17/17 12:51 98.7 133/64 2.0 Status: improved Disposition: ADMITTED INPATIENT Condition: Serious Referrals: NOT CHOSEN IPA/,REFERRING (PCP) SUMANTH WILSON M.D. Mar 17, 2017 13:06
[2017-03-17 13:16] LABS: BASOPHILS % (AUTO) 0.8 % (0.0-2.0); EOSINOPHILS % (AUTO) 4.3 % (0.0-3.0); LYMPHOCYTES % (AUTO) 26.5 % (20.0-45.0); MEAN CORPUSCULAR HEMOGLOBIN 22.8 PG (27.0-31.0); MEAN CORPUSCULAR HGB CONC 28.9 G/DL (32.0-36.0); MEAN CORPUSCULAR VOLUME 79 FL (80-99); MEAN PLATELET VOLUME 6.4 FL (6.5-10.1); MONOCYTES % (AUTO) 4.3 % (1.0-10.0); NEUTROPHILS % (AUTO) 64.1 % (45.0-75.0); PLATELET COUNT 288 K/UL (150-450); RED BLOOD COUNT 4.49 M/UL (4.20-5.40); RED CELL DISTRIBUTION WIDTH 20.8 % (11.6-14.8); TROPONIN I < 0.30 ng/mL (<=0.30); WHITE BLOOD COUNT 7.9 K/UL (4.8-10.8)
[2017-03-17 13:19] LABS: ALANINE AMINOTRANSFERASE 8 U/L (3-33); ALBUMIN/GLOBULIN RATIO 1.6 (1.0-2.7); ANION GAP 7 (5-15); ASPARTATE AMINO TRANSFERASE 11 U/L (5-40); CALCIUM 9.3 mg/dL (8.6-10.2); CARBON DIOXIDE 40 mEQ/L (20-30); CHLORIDE 97 mEQ/L (98-107); CREATININE 0.7 mg/dL (0.5-0.9); GLOMERULAR FILTRATION RATE > 60 mL/min (>60); HEMOLYSIS 13; POTASSIUM 2.9 mEQ/L (3.4-4.9); SODIUM 144 mEQ/L (135-145); TOTAL PROTEIN 6.5 g/dL (6.6-8.7)
[2017-03-17 13:30] LABS: CKMB < 1.5 ng/mL (< 3.8)
[2017-03-17] MEDS ORDERED: Cefepime HCl 1 GM in D5W 55 ML IVPB ONE (13:30)
[2017-03-17] MEDS ORDERED: Azithromycin 500 MG in NS 275 ML IV ONE (13:30)
[2017-03-17] MEDS ORDERED: Azithromycin Inj IV ONE (13:43)
[2017-03-17] MEDS ORDERED: Cefepime 1gm vial ONE (13:43)
[2017-03-17 14:00] VITALS: BP 149/56
[2017-03-17] MEDS ORDERED: DuoNeb 0.5-3(2.5)mg/3ml neb HHN PRN (14:30)
[2017-03-17] MEDS ORDERED: Miralax 17gm pkt ORAL PRN (14:30)
--- NOTE | 2017-03-17 15:30 | Diagnostic Imaging Report ---
Indication: SOB Technique: One view of the chest Comparison: 02/01/2017 Findings: There is diffuse bilateral interstitial and alveolar edema versus infiltrates, new or increased from the previous exam. There may be blunting of left costophrenic angle. The heart is enlarged. Impression: Bilateral diffuse interstitial and alveolar edema versus infiltrates, new or increased since prior study of 02/01/2017. Possible small left pleural effusion Cardiomegaly
[2017-03-17 15:34] VITALS: BP 131/71
[2017-03-17 16:15] VITALS: BP 122/93
[2017-03-17] MEDS: Morphine Sulfate 2mg/ml Inj IVP PRN ×2 (18:23→22:43)
[2017-03-17] MEDS: Metoprolol 25mg tab ORAL SCH (18:24)
--- NOTE | 2017-03-17 18:43 | History and Physical ---
History of Present Illness General Date patient seen: Mar 17, 2017 Reason for Hospitalization: Dyspnea/Respdistress Present Illness HPI 51 year of female with hx of COPD, HTN, CHF, On Home O2, morbid obesity presented to ER with acute SOB today and recent cough. She was in respiratory failure Allergies: Coded Allergies: Lettuce (Verified Allergy, Severe, Anaphylaxis, 06/24/15) Uncoded Allergies: seafood (Allergy, Severe, anaphylaxic shock, 12/11/16) all seafoo Medication History Scheduled Aspirin* (Aspir 81*), 81 MG ORAL DAILY, (Reported) Atorvastatin Calcium* (Lipitor*), 80 MG ORAL BEDTIME, (Reported) Docusate Sodium* (Colace*), 100 MG ORAL DAILY, (Reported) Furosemide (Furosemide), 20 MG ORAL BID, (Reported) Ibuprofen (Ibuprofen*), 800 MG ORAL THREE TIMES A DAY, (Reported) Lisinopril (Lisinopril*), 10 MG ORAL DAILY, (Reported) Metoprolol Tartrate (Metoprolol Tartrate), 25 MG ORAL BID, (Reported) Sertraline Hcl* (Zoloft*), 200 MG ORAL DAILY, (Reported) Scheduled PRN Albuterol Sulfate (Ventolin Hfa), 1 PUFF INH EVERY 6 HOURS PRN for Shortness of Breath, (Reported) Diphenhydramine Hcl (Banophen), 50 MG PO DAILY PRN for Itching, (Reported) Nitroglycerin (Nitroglycerin), 0.4 MG SL DAILY PRN for For Pain, (Reported) Ranitidine Hcl (Ranitidine Hcl), 150 MG ORAL BID PRN for GASTRITIS, (Reported) Tiotropium [place]* (Spiriva*), 1 PUFF INH DAILY PRN for Shortness of Breath, ( Reported) Discontinued Medications Amoxicillin* (Amoxil*), 500 MG ORAL THREE TIMES A DAY Discontinued Reason: Therapy completed Patient History Healthcare decision maker Resuscitation status Full Code Advanced Directive on File Physical Exam Last 24 Hour Vital Signs Date Time Temp Pulse Resp B/P Pulse Ox O2 Delivery O2 Flow Rate FiO2 03/17/17 18:24 70 122/93 03/17/17 16:15 97.8 70 18 122/93 94 Nasal Cannula 2.0 03/17/17 16:00 75 03/17/17 15:39 98.7 79 18 131/71 100 Bi-pap 2.0 50 03/17/17 15:34 79 18 131/71 100 Bi-pap 50 03/17/17 14:00 75 25 149/56 100 Bi-pap 50 03/17/17 13:00 50 03/17/17 13:00 74 18 137/69 100 Bi-pap 50 03/17/17 12:55 60 33 100 Facial 50 03/17/17 12:51 70 22 03/17/17 12:51 98.7 70 22 133/64 100 Nasal Cannula 2.0 03/17/17 12:22 98.1 80 20 15/80 98 Simple Mask Laboratory Tests Test 03/17/17 12:40 White Blood Count 7.9 K/UL (4.8-10.8) Red Blood Count 4.49 M/UL (4.20-5.40) Hemoglobin 10.3 G/DL (12.0-16.0) L Hematocrit 35.5 % (37.0-47.0) L Mean Corpuscular Volume 79 FL (80-99) L Mean Corpuscular Hemoglobin 22.8 PG (27.0-31.0) L Mean Corpuscular Hemoglobin Concent 28.9 G/DL (32.0-36.0) L Red Cell Distribution Width 20.8 % (11.6-14.8) H Platelet Count 288 K/UL (150-450) Mean Platelet Volume 6.4 FL (6.5-10.1) L Neutrophils (%) (Auto) 64.1 % (45.0-75.0) Lymphocytes (%) (Auto) 26.5 % (20.0-45.0) Monocytes (%) (Auto) 4.3 % (1.0-10.0) Eosinophils (%) (Auto) 4.3 % (0.0-3.0) H Basophils (%) (Auto) 0.8 % (0.0-2.0) Sodium Level 144 mEQ/L (135-145) Potassium Level 2.9 mEQ/L (3.4-4.9) L Chloride Level 97 mEQ/L (98-107) L Carbon Dioxide Level 40 mEQ/L (20-30) H Anion Gap 7 (5-15) Blood Urea Nitrogen 6 mg/dL (7-23) L Creatinine 0.7 mg/dL (0.5-0.9) Estimat Glomerular Filtration Rate > 60 mL/min (>60) Glucose Level 112 mg/dL (74-106) H Calcium Level 9.3 mg/dL (8.6-10.2) Total Bilirubin 0.4 mg/dL (0.0-1.2) Aspartate Amino Transf (AST/SGOT) 11 U/L (5-40) Alanine Aminotransferase (ALT/SGPT) 8 U/L (3-33) Alkaline Phosphatase 51 U/L (35-104) Total Creatine Kinase 51 U/L (26-140) Creatine Kinase MB < 1.5 ng/mL (< 3.8) Creatine Kinase MB Relative Index 2.9 Troponin I < 0.30 ng/mL (<=0.30) Pro-B-Type Natriuretic Peptide 331 pg/mL (0-125) H Total Protein 6.5 g/dL (6.6-8.7) L Albumin 4.0 g/dL (3.5-5.2) Globulin 2.5 g/dL Albumin/Globulin Ratio 1.6 (1.0-2.7) Height (Feet): 5 Height (Inches): 0.00 Weight (Pounds): 250 Medications Current Medications Medications (Trade) Dose Ordered Sig/May Route PRN Reason Start Time Stop Time Status Last Admin Dose Admin Acetaminophen (Tylenol) 650 mg Q4H PRN ORAL Fever 03/17/17 14:30 04/16/17 14:29 Albuterol/ Ipratropium (DuoNeb 0.5-3(2.5)mg/3ml) 3 ml Q4H PRN HHN Shortness of Breath 03/17/17 14:30 03/22/17 14:29 Dextrose (Dextrose 50%) STAT PRN IV Hypoglycemia 03/17/17 14:30 04/16/17 14:29 Furosemide (Lasix) 40 mg EVERY 8 HOURS IV 03/17/17 22:00 04/16/17 21:59 Heparin Sodium (Porcine) (Heparin 5000 units/ml) 5,000 units EVERY 12 HOURS SUBQ 03/17/17 21:00 04/16/17 20:59 Lisinopril (Zestril) 10 mg DAILY ORAL 03/18/17 09:00 04/17/17 08:59 Metoprolol Tartrate (Lopressor) 25 mg Q12H ORAL 03/17/17 19:00 04/16/17 18:59 03/17/17 18:24 Morphine Sulfate (Morphine Sulfate) 2 mg Q4H PRN IVP For Pain 4-10 03/17/17 17:00 03/24/17 16:59 03/17/17 18:23 Ondansetron HCl (Zofran) 4 mg Q6H PRN IVP Nausea & Vomiting 03/17/17 14:30 04/16/17 14:29 03/17/17 18:24 Polyethylene Glycol (Miralax) 17 gm DAILYPRN PRN ORAL Constipation 03/17/17 14:30 04/16/17 14:29 Potassium Chloride (K-Dur) 40 meq Q6H ORAL 03/17/17 17:00 03/17/17 23:01 03/17/17 16:54 Sertraline HCl (Zoloft) 200 mg DAILY ORAL 03/18/17 09:00 04/17/17 08:59 Temazepam (Restoril) 15 mg HSPRN PRN ORAL Insomnia 03/17/17 14:30 03/24/17 14:29 Assessment/Plan Problem List: (1) Respiratory failure with hypoxia ICD Codes: J96.91 - Respiratory failure, unspecified with hypoxia SNOMED: 33329342130966639 (2) Acute exacerbation of CHF (congestive heart failure) ICD Codes: I50.9 - Heart failure, unspecified SNOMED: 17040692 (3) Purulent bronchitis ICD Codes: J41.1 - Mucopurulent chronic bronchitis SNOMED: 54755624 (4) Morbid obesity ICD Codes: E66.01 - Morbid (severe) obesity due to excess calories SNOMED: 883296539 (5) Diabetes mellitus ICD Codes: E11.9 - Type 2 diabetes mellitus without complications SNOMED: 28240366 Assessment/Plan titrate fio2 check sputum lasix iv measure intake and output check electrolytes optimize cardiac meds sliding scale LAMIN NEWTON Mar 17, 2017 18:43
[2017-03-17] MEDS ORDERED: VENTOLIN HFA18 GM INH (19:06)
[2017-03-17] MEDS ORDERED: BANOPHEN25 MG PO (19:06)
[2017-03-17] MEDS ORDERED: SPIRIVA18 MCG INH (19:06)
[2017-03-17] MEDS ORDERED: FUROSEMIDE80 MG ORAL (19:06)
[2017-03-17] MEDS ORDERED: NITROGLYCERIN0.4 MG SL (19:06)
[2017-03-17 20:11] VITALS: BP 130/71
[2017-03-17] MEDS: Heparin 5000 units/ml inj SUBQ SCH (21:14)
--- NOTE | 2017-03-17 23:38 | Diagnostic Imaging Report ---
APPROVED REPORT CPT Code: 62542 Present Symptoms Shortness of breath BILATERAL: Imaging reveals a patent deep venous system bilaterally. There is no evidence of thrombus within the femoral, popliteal or tibial segments. The greater saphenous veins are also within normal limits. Doppler indicates normal spontaneous flow within these segments.
[2017-03-18] VITALS (7 sets, daily range): BP systolic 96–149; BP diastolic 58–89
[2017-03-18] MEDS: Morphine Sulfate 2mg/ml Inj IVP PRN ×3 (04:13→22:55)
[2017-03-18 05:32] LABS: BASOPHILS % (AUTO) 0.8 % (0.0-2.0); EOSINOPHILS % (AUTO) 5.6 % (0.0-3.0); LYMPHOCYTES % (AUTO) 34.8 % (20.0-45.0); MEAN CORPUSCULAR HEMOGLOBIN 22.8 PG (27.0-31.0); MEAN CORPUSCULAR HGB CONC 28.3 G/DL (32.0-36.0); MEAN CORPUSCULAR VOLUME 80 FL (80-99); MEAN PLATELET VOLUME 6.6 FL (6.5-10.1); MONOCYTES % (AUTO) 4.6 % (1.0-10.0); NEUTROPHILS % (AUTO) 54.2 % (45.0-75.0); PLATELET COUNT 321 K/UL (150-450); RED BLOOD COUNT 4.59 M/UL (4.20-5.40); RED CELL DISTRIBUTION WIDTH 21.7 % (11.6-14.8); WHITE BLOOD COUNT 6.4 K/UL (4.8-10.8)
[2017-03-18 05:48] LABS: TROPONIN I < 0.30 ng/mL (<=0.30)
[2017-03-18 05:55] LABS: ANION GAP 10 (5-15); CALCIUM 9.3 mg/dL (8.6-10.2); CARBON DIOXIDE 38 mEQ/L (20-30); CHLORIDE 95 mEQ/L (98-107); CREATININE 0.9 mg/dL (0.5-0.9); GLOMERULAR FILTRATION RATE > 60 mL/min (>60); HEMOLYSIS 4; PHOSPHORUS 5.4 mg/dL (2.5-4.8); SODIUM 143 mEQ/L (135-145)
[2017-03-18] MEDS: Metoprolol 25mg tab ORAL SCH ×2 (06:59→18:24)
[2017-03-18] MEDS: Lisinopril 10mg tab ORAL SCH (09:30)
[2017-03-18] MEDS: Sertraline 100mg tab ORAL SCH (09:31)
[2017-03-18] MEDS: Heparin 5000 units/ml inj SUBQ SCH ×2 (09:34→21:13)
--- NOTE | 2017-03-18 09:46 | Cardiology Report ---
APPROVED REPORT EXAM: Two-dimensional and M-mode echocardiogram with Doppler and color Doppler. INDICATION Left ventricular function M-Mode DIMENSIONS Left Atrium (MM)5.4 (1.6-4.0cm) Aortic Root2.6 (2.0-3.7cm) Aortic Cusp Exc.1.9 (1.5-2.0cm) Technically difficult study due to poor acoustic windows. M-mode measurements not obtainable due to difficult windows. Normal left ventricular chamber size, systolic function and wall motion. Left ventricular ejection fraction estimated to be 55-60 %. Mild left ventricular hypertrophy. Anterior Echo-free space, may be due to pericardial fat or effusion. Right cardiac chamber sizes are within normal limits. Mild left atrial enlargement by 2D. Focal aortic valve sclerosis with adequate cusp excursion Thickened mitral valve leaflets with normal excursion. Mitral annulus and aortic root calcification. Pulmonic valve not well visualized. Normal tricuspid valve structure. IVC is normal in size with physiologic collapse. A color flow and spectral Doppler study was performed and revealed: No aortic regurgitation. Trace mitral regurgitation. Mitral inflow velocities indicates possible pseudo normalization pattern implying significant left ventricular diastolic dysfunction. No tricuspid regurgitation.
--- NOTE | 2017-03-18 10:34 | Pulmonology Progress Note ---
Assessment/Plan Problems: (1) Respiratory failure with hypoxia (2) Acute exacerbation of CHF (congestive heart failure) (3) Purulent bronchitis (4) Morbid obesity (5) Diabetes mellitus Assessment/Plan change lasix to drip add Zaroxyline measure intake, output sliding scale check sputum continue abx. Subjective ROS Limited/Unobtainable: No Interval Events: still short of breath, slightly better Allergies: Coded Allergies: Lettuce (Verified Allergy, Severe, Anaphylaxis, 06/24/15) Uncoded Allergies: seafood (Allergy, Severe, anaphylaxic shock, 12/11/16) all seafoo Objective Last 24 Hour Vital Signs Date Time Temp Pulse Resp B/P Pulse Ox O2 Delivery O2 Flow Rate FiO2 03/18/17 09:30 115/58 03/18/17 06:59 75 149/89 03/18/17 04:51 98.6 03/18/17 04:24 75 25 95 Facial 45 03/18/17 04:03 98.6 78 18 149/89 92 Nasal Cannula 4.0 03/18/17 04:00 2.0 03/18/17 03:55 71 03/18/17 00:09 98.3 68 20 117/60 94 Bi-pap 03/17/17 23:48 71 03/17/17 22:30 2.0 03/17/17 22:10 69 26 96 Facial 45 03/17/17 22:05 45 03/17/17 20:11 98.7 73 19 130/71 94 Nasal Cannula 2.0 03/17/17 20:10 93 Nasal Cannula 3.0 32 03/17/17 20:10 Nasal Cannula 3.0 32 03/17/17 20:09 71 22 Nasal Cannula 3.0 32 03/17/17 20:00 2.0 03/17/17 20:00 70 03/17/17 18:24 70 122/93 03/17/17 16:15 97.8 70 18 122/93 94 Nasal Cannula 2.0 03/17/17 16:00 75 03/17/17 15:39 98.7 79 18 131/71 100 Bi-pap 2.0 50 03/17/17 15:34 79 18 131/71 100 Bi-pap 50 03/17/17 14:00 75 25 149/56 100 Bi-pap 50 03/17/17 13:00 50 03/17/17 13:00 74 18 137/69 100 Bi-pap 50 03/17/17 12:55 60 33 100 Facial 50 03/17/17 12:51 70 22 03/17/17 12:51 98.7 70 22 133/64 100 Nasal Cannula 2.0 03/17/17 12:22 98.1 80 20 15/80 98 Simple Mask Intake and Output 03/17/17 03/18/17 19:00 07:00 Intake Total 330 ml 825 ml Output Total 570 ml 350 ml Balance -240 ml 475 ml Intake Oral 825 ml IV Total 330 ml Output Urine Total 570 ml 350 ml # Voids 1 4 General Appearance: WD/WN HEENT: normocephalic, atraumatic Respiratory/Chest: chest wall non-tender, normal breath sounds, expiratory wheezing Breasts: no masses Cardiovascular: normal peripheral pulses Abdomen: normal bowel sounds, soft, non tender Extremities: no cyanosis Skin: no lesions Lymphatic: no neck adenopathy Laboratory Tests 03/17/17 12:40: White Blood Count 7.9, Red Blood Count 4.49, Hemoglobin 10.3L, Hematocrit 35.5L , Mean Corpuscular Volume 79L, Mean Corpuscular Hemoglobin 22.8L, Mean Corpuscular Hemoglobin Concent 28.9L, Red Cell Distribution Width 20.8H, Platelet Count 288, Mean Platelet Volume 6.4L, Neutrophils (%) (Auto) 64.1, Lymphocytes (%) (Auto) 26.5, Monocytes (%) (Auto) 4.3, Eosinophils (%) (Auto) 4.3H, Basophils (%) (Auto) 0.8, Sodium Level 144, Potassium Level 2.9L, Chloride Level 97L, Carbon Dioxide Level 40H, Anion Gap 7, Blood Urea Nitrogen 6L, Creatinine 0.7, Estimat Glomerular Filtration Rate > 60, Glucose Level 112H , Calcium Level 9.3, Total Bilirubin 0.4, Aspartate Amino Transf (AST/SGOT) 11, Alanine Aminotransferase (ALT/SGPT) 8, Alkaline Phosphatase 51, Total Creatine Kinase 51, Creatine Kinase MB < 1.5, Creatine Kinase MB Relative Index 2.9, Troponin I < 0.30, Pro-B-Type Natriuretic Peptide 331H, Total Protein 6.5L, Albumin 4.0, Globulin 2.5, Albumin/Globulin Ratio 1.6 03/18/17 04:00: White Blood Count 6.4, Red Blood Count 4.59, Hemoglobin 10.5L, Hematocrit 36.9L , Mean Corpuscular Volume 80, Mean Corpuscular Hemoglobin 22.8L, Mean Corpuscular Hemoglobin Concent 28.3L, Red Cell Distribution Width 21.7H, Platelet Count 321, Mean Platelet Volume 6.6, Neutrophils (%) (Auto) 54.2, Lymphocytes (%) (Auto) 34.8, Monocytes (%) (Auto) 4.6, Eosinophils (%) (Auto) 5.6H, Basophils (%) (Auto) 0.8, Sodium Level 143, Potassium Level 4.0, Chloride Level 95L, Carbon Dioxide Level 38H, Anion Gap 10, Blood Urea Nitrogen 11, Creatinine 0.9, Estimat Glomerular Filtration Rate > 60, Glucose Level 104, Calcium Level 9.3, Troponin I < 0.30, Albumin 4.2, Phosphorus Level 5.4H Current Medications Medications (Trade) Dose Ordered Sig/May Route PRN Reason Start Time Stop Time Status Last Admin Dose Admin Acetaminophen (Tylenol) 650 mg Q4H PRN ORAL Fever 03/17/17 14:30 04/16/17 14:29 Albuterol/ Ipratropium (DuoNeb 0.5-3(2.5)mg/3ml) 3 ml Q4H PRN HHN Shortness of Breath 03/17/17 14:30 03/22/17 14:29 Dextrose (Dextrose 50%) STAT PRN IV Hypoglycemia 03/17/17 14:30 04/16/17 14:29 Furosemide (Lasix) 40 mg EVERY 8 HOURS IV 03/17/17 22:00 04/16/17 21:59 03/18/17 06:59 Heparin Sodium (Porcine) (Heparin 5000 units/ml) 5,000 units EVERY 12 HOURS SUBQ 03/17/17 21:00 04/16/17 20:59 03/18/17 09:34 Lisinopril (Zestril) 10 mg DAILY ORAL 03/18/17 09:00 04/17/17 08:59 03/18/17 09:30 Metoprolol Tartrate (Lopressor) 25 mg Q12H ORAL 03/17/17 19:00 04/16/17 18:59 03/18/17 06:59 Morphine Sulfate (Morphine Sulfate) 2 mg Q4H PRN IVP For Pain 4-10 03/17/17 17:00 03/24/17 16:59 03/18/17 04:13 Ondansetron HCl (Zofran) 4 mg Q6H PRN IVP Nausea & Vomiting 03/17/17 14:30 04/16/17 14:29 03/17/17 18:24 Polyethylene Glycol (Miralax) 17 gm DAILYPRN PRN ORAL Constipation 03/17/17 14:30 04/16/17 14:29 Sertraline HCl (Zoloft) 200 mg DAILY ORAL 03/18/17 09:00 04/17/17 08:59 03/18/17 09:31 Temazepam (Restoril) 15 mg HSPRN PRN ORAL Insomnia 03/17/17 14:30 03/24/17 14:29 LAMIN NEWTON Mar 18, 2017 10:34
--- NOTE | 2017-03-18 11:38 | Diagnostic Imaging Report ---
Indications: DYSPNEA Technique: Portable AP chest Findings: Comparison: 03/17/17 Cardiomegaly, pulmonary vascular redistribution, bilateral interstitial infiltrates, subsegmental atelectasis right midlung versus fluid in right minor fissure unchanged. No new abnormality identified. IMPRESSION: Stable bilateral congestive changes
[2017-03-18] MEDS: guaiFENesin 100mg/5ml Liq ud ORAL PRN (16:34)
[2017-03-19 00:43] VITALS: BP 95/48
[2017-03-19] MEDS: Morphine Sulfate 2mg/ml Inj IVP PRN ×2 (03:33→20:41)
[2017-03-19 04:36] VITALS: BP 98/49
[2017-03-19 06:46] LABS: TROPONIN I < 0.30 ng/mL (<=0.30)
[2017-03-19] MEDS: Metoprolol 25mg tab ORAL SCH ×2 (07:00→18:20)
[2017-03-19 08:00] VITALS: BP 83/47
[2017-03-19] MEDS: Metolazone 5mg tab ORAL SCH (08:19)
[2017-03-19] MEDS: Lisinopril 10mg tab ORAL SCH (08:19)
[2017-03-19] MEDS: Sertraline 100mg tab ORAL SCH (08:25)
[2017-03-19] MEDS: Heparin 5000 units/ml inj SUBQ SCH ×2 (08:26→20:45)
--- NOTE | 2017-03-19 11:23 | Pulmonology Progress Note ---
Assessment/Plan Problems: (1) Respiratory failure with hypoxia (2) Acute exacerbation of CHF (congestive heart failure) (3) Purulent bronchitis (4) Morbid obesity (5) Diabetes mellitus Assessment/Plan on lasix drip add Zaroxyline measure intake, output sliding scale check sputum continue abx. check cultures bipap at night cxr bnp in am Subjective ROS Limited/Unobtainable: No Interval Events: good urine output Allergies: Coded Allergies: Lettuce (Verified Allergy, Severe, Anaphylaxis, 06/24/15) Uncoded Allergies: seafood (Allergy, Severe, anaphylaxic shock, 12/11/16) all seafoo Objective Last 24 Hour Vital Signs Date Time Temp Pulse Resp B/P Pulse Ox O2 Delivery O2 Flow Rate FiO2 03/19/17 08:41 93 03/19/17 08:30 72 22 95 Facial 45 03/19/17 08:19 83/47 03/19/17 08:17 72 20 Nasal Cannula 3.0 03/19/17 08:17 Nasal Cannula 3.0 32 03/19/17 08:17 95 Nasal Cannula 3.0 32 03/19/17 08:00 97.9 69 18 83/47 94 Nasal Cannula 2.0 03/19/17 07:00 89 91/51 03/19/17 04:36 97.9 87 18 98/49 96 Nasal Cannula 2.0 03/19/17 03:50 86 03/19/17 00:43 98.1 71 19 95/48 98 Bi-pap 03/18/17 23:39 66 03/18/17 22:17 77 20 96 Facial 45 03/18/17 20:00 97.7 63 18 101/74 94 Nasal Cannula 2.0 03/18/17 19:40 81 03/18/17 19:38 79 20 Nasal Cannula 3.0 03/18/17 19:37 95 Nasal Cannula 3.0 32 03/18/17 19:37 Nasal Cannula 3.0 32 03/18/17 18:24 81 117/61 03/18/17 16:00 98.1 81 22 117/61 100 Nasal Cannula 3.0 03/18/17 15:42 83 03/18/17 12:30 114/58 03/18/17 12:00 98.2 82 22 96/62 97 Nasal Cannula 3.0 03/18/17 12:00 82 Intake and Output 03/18/17 03/19/17 19:00 07:00 Intake Total 388 ml 137.5 ml Output Total 2600 ml 1100 ml Balance -2212 ml -962.5 ml Intake Oral 300 ml IV Total 88 ml 137.5 ml Output Urine Total 2600 ml 1100 ml # Voids 6 3 General Appearance: WD/WN HEENT: normocephalic Respiratory/Chest: chest wall non-tender, lungs clear Breasts: no masses Cardiovascular: normal rate Genitourinary: normal external genitalia Extremities: no cyanosis Skin: no rash, no lesions, no ulcers Laboratory Tests 03/19/17 03:00: Troponin I < 0.30 Current Medications Medications (Trade) Dose Ordered Sig/May Route PRN Reason Start Time Stop Time Status Last Admin Dose Admin Acetaminophen (Tylenol) 650 mg Q4H PRN ORAL Fever 03/17/17 14:30 04/16/17 14:29 Albuterol/ Ipratropium (DuoNeb 0.5-3(2.5)mg/3ml) 3 ml Q4H PRN HHN Shortness of Breath 03/17/17 14:30 03/22/17 14:29 Dextrose (Dextrose 50%) STAT PRN IV Hypoglycemia 03/17/17 14:30 04/16/17 14:29 Furosemide/ Dextrose (Lasix/D5W) 110 ml @ 11 mls/hr Q10H IV 03/18/17 12:00 04/17/17 11:59 03/19/17 05:08 Guaifenesin (Robitussin) 200 mg Q4H PRN ORAL For Cough 03/18/17 16:15 04/17/17 16:14 03/18/17 16:34 Heparin Sodium (Porcine) (Heparin 5000 units/ml) 5,000 units EVERY 12 HOURS SUBQ 03/17/17 21:00 04/16/17 20:59 03/19/17 08:26 Lisinopril (Zestril) 10 mg DAILY ORAL 03/18/17 09:00 04/17/17 08:59 03/18/17 09:30 Metolazone (Zaroxolyn) 5 mg DAILY ORAL 03/19/17 09:00 04/18/17 08:59 Metoprolol Tartrate (Lopressor) 25 mg Q12H ORAL 03/17/17 19:00 04/16/17 18:59 03/18/17 18:24 Morphine Sulfate 2 mg 2 mg Q4H PRN IVP For Pain 4-03/17/17 17:00 03/24/17 16:59 03/19/17 03:33 Ondansetron HCl (Zofran) 4 mg Q6H PRN IVP Nausea & Vomiting 03/17/17 14:30 04/16/17 14:29 03/19/17 06:38 Pantoprazole (Protonix) 40 mg DAILY ORAL 03/19/17 09:00 04/18/17 08:59 03/19/17 08:07 Polyethylene Glycol (Miralax) 17 gm DAILYPRN PRN ORAL Constipation 03/17/17 14:30 04/16/17 14:29 03/19/17 00:48 Sertraline HCl (Zoloft) 200 mg DAILY ORAL 03/18/17 09:00 04/17/17 08:59 03/19/17 08:25 Temazepam (Restoril) 15 mg HSPRN PRN ORAL Insomnia 03/17/17 14:30 03/24/17 14:29 03/18/17 21:52 LAMIN NEWTON Mar 19, 2017 11:23
[2017-03-19 12:00] VITALS: BP 87/43
[2017-03-19 16:00] VITALS: BP 115/64
[2017-03-19 19:39] LABS: CREATININE 2.3 mg/dL (0.5-0.9); POTASSIUM 4.1 mEQ/L (3.4-4.9)
[2017-03-19 20:00] VITALS: BP 124/74
--- NOTE | 2017-03-19 21:18 | Cardiology Report ---
APPROVED REPORT EKG Measurement Heart [id number] OR [id number] [id number] Normal sinus rhythm T wave abnormality, consider inferior ischemia T wave abnormality, consider anterolateral ischemia Prolonged QT Abnormal ECG
[2017-03-20 00:54] VITALS: BP 115/68
[2017-03-20 04:00] VITALS: BP 112/54
[2017-03-20] MEDS: guaiFENesin 100mg/5ml Liq ud ORAL PRN (04:42)
[2017-03-20 05:42] LABS: BASOPHILS % (AUTO) 0.9 % (0.0-2.0); EOSINOPHILS % (AUTO) 3.4 % (0.0-3.0); LYMPHOCYTES % (AUTO) 19.4 % (20.0-45.0); MEAN CORPUSCULAR HEMOGLOBIN 23.2 PG (27.0-31.0); MEAN CORPUSCULAR HGB CONC 29.2 G/DL (32.0-36.0); MEAN CORPUSCULAR VOLUME 80 FL (80-99); NEUTROPHILS % (AUTO) 71.4 % (45.0-75.0); PLATELET COUNT 308 K/UL (150-450); RED BLOOD COUNT 4.74 M/UL (4.20-5.40); RED CELL DISTRIBUTION WIDTH 21.2 % (11.6-14.8); WHITE BLOOD COUNT 9.3 K/UL (4.8-10.8)
[2017-03-20 06:20] LABS: ALBUMIN/GLOBULIN RATIO 1.3 (1.0-2.7); CALCIUM 9.7 mg/dL (8.6-10.2); CREATININE 1.8 mg/dL (0.5-0.9); GLOMERULAR FILTRATION RATE 35.8 mL/min (>60); POTASSIUM 4.3 mEQ/L (3.4-4.9); TOTAL PROTEIN 7.1 g/dL (6.6-8.7)
[2017-03-20] MEDS: Metoprolol 25mg tab ORAL SCH (07:00)
[2017-03-20 08:00] VITALS: BP 109/50
[2017-03-20] MEDS: Sertraline 100mg tab ORAL SCH (08:28)
[2017-03-20] MEDS: Heparin 5000 units/ml inj SUBQ SCH ×2 (08:30→22:11)
[2017-03-20] MEDS: Lisinopril 10mg tab ORAL SCH (09:00)
[2017-03-20] MEDS: Metolazone 5mg tab ORAL SCH (09:00)
--- NOTE | 2017-03-20 09:20 | Pulmonology Progress Note ---
Assessment/Plan Problems: (1) Respiratory failure with hypoxia (2) Acute exacerbation of CHF (congestive heart failure) (3) Purulent bronchitis (4) Morbid obesity (5) Diabetes mellitus Assessment/Plan feeling a little better every day on lasix drip dc Zaroxyline measure intake, output sliding scale check sputum continue abx. check cultures bipap at night bnp in am Subjective ROS Limited/Unobtainable: No Constitutional: Reports: no symptoms HEENT: Repors: no symptoms Respiratory: Reports: no symptoms Allergies: Coded Allergies: Lettuce (Verified Allergy, Severe, Anaphylaxis, 06/24/15) Uncoded Allergies: seafood (Allergy, Severe, anaphylaxic shock, 12/11/16) all seafoo Objective Last 24 Hour Vital Signs Date Time Temp Pulse Resp B/P Pulse Ox O2 Delivery O2 Flow Rate FiO2 03/20/17 09:00 109/50 03/20/17 07:13 Nasal Cannula 4.0 36 03/20/17 07:13 98 Nasal Cannula 4.0 36 03/20/17 07:12 100 20 Nasal Cannula 4.0 36 03/20/17 07:00 100 109/50 03/20/17 04:00 98.0 87 20 112/54 95 Nasal Cannula 4.0 03/20/17 03:38 87 03/20/17 01:04 73 22 95 Facial 45 03/20/17 00:54 98.0 88 16 115/68 100 Bi-pap 45 03/19/17 23:49 77 25 96 Facial 45 03/19/17 23:42 78 03/19/17 20:16 89 03/19/17 20:00 97.9 89 20 124/74 97 Nasal Cannula 4.0 03/19/17 19:20 Nasal Cannula 3.0 32 03/19/17 19:10 79 20 Nasal Cannula 3.0 03/19/17 19:10 95 Nasal Cannula 3.0 32 03/19/17 18:20 75 115/64 03/19/17 16:10 75 03/19/17 16:00 98.1 92 24 115/64 94 Nasal Cannula 4.0 03/19/17 12:00 89 03/19/17 12:00 98.2 115 22 87/43 97 Nasal Cannula 4.0 Intake and Output 03/19/17 03/20/17 19:00 07:00 Intake Total 532 ml 171 ml Output Total 900 ml 250 ml Balance -368 ml -79 ml Intake Oral 400 ml 50 ml IV Total 132 ml 121 ml Output Urine Total 900 ml 250 ml General Appearance: WD/WN Respiratory/Chest: chest wall non-tender, lungs clear Breasts: no masses Cardiovascular: normal peripheral pulses, normal rate Abdomen: normal bowel sounds, soft, non tender Genitourinary: normal external genitalia Extremities: no cyanosis 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 Lymphatic: no neck adenopathy Microbiology Date/Time Source Procedure Growth Status 03/17/17 13:50 Blood Blood Culture - Preliminary NO GROWTH AFTER 48 HOURS Resulted Laboratory Tests 03/19/17 18:40: Sodium Level 139, Potassium Level 4.1, Chloride Level 90L, Carbon Dioxide Level 40H, Anion Gap 9, Blood Urea Nitrogen 22, Creatinine 2.3H, Estimat Glomerular Filtration Rate 27.0, Glucose Level 114H, Calcium Level 9.0 03/20/17 05:15: Sodium Level 141, Potassium Level 4.3, Chloride Level 89L, Carbon Dioxide Level 40H, Anion Gap 12, Blood Urea Nitrogen 22, Creatinine 1.8H, Estimat Glomerular Filtration Rate 35.8, Glucose Level 122H, Calcium Level 9.7, White Blood Count 9.3, Red Blood Count 4.74, Hemoglobin 11.0L, Hematocrit 37.8, Mean Corpuscular Volume 80, Mean Corpuscular Hemoglobin 23.2L, Mean Corpuscular Hemoglobin Concent 29.2L, Red Cell Distribution Width 21.2H, Platelet Count 308, Mean Platelet Volume 7.0, Neutrophils (%) (Auto) 71.4, Lymphocytes (%) (Auto) 19.4L, Monocytes (%) (Auto) 5.0, Eosinophils (%) (Auto) 3.4H, Basophils (%) (Auto) 0.9 , Total Bilirubin 0.5, Aspartate Amino Transf (AST/SGOT) 13, Alanine Aminotransferase (ALT/SGPT) 6, Alkaline Phosphatase 57, Pro-B-Type Natriuretic Peptide 42, Total Protein 7.1, Albumin 4.1, Globulin 3.0, Albumin/Globulin Ratio 1.3 Current Medications Medications (Trade) Dose Ordered Sig/May Route PRN Reason Start Time Stop Time Status Last Admin Dose Admin Acetaminophen (Tylenol) 650 mg Q4H PRN ORAL Fever 03/17/17 14:30 04/16/17 14:29 Albuterol/ Ipratropium (DuoNeb 0.5-3(2.5)mg/3ml) 3 ml Q4H PRN HHN Shortness of Breath 03/17/17 14:30 03/22/17 14:29 Dextrose (Dextrose 50%) STAT PRN IV Hypoglycemia 03/17/17 14:30 04/16/17 14:29 Furosemide/ Dextrose (Lasix/D5W) 110 ml @ 11 mls/hr Q10H IV 03/18/17 12:00 04/17/17 11:59 03/20/17 00:00 Guaifenesin (Robitussin) 200 mg Q4H PRN ORAL For Cough 03/18/17 16:15 04/17/17 16:14 03/20/17 04:42 Heparin Sodium (Porcine) (Heparin 5000 units/ml) 5,000 units EVERY 12 HOURS SUBQ 03/17/17 21:00 04/16/17 20:59 03/20/17 08:30 Lisinopril (Zestril) 10 mg DAILY ORAL 03/18/17 09:00 04/17/17 08:59 03/18/17 09:30 Metolazone (Zaroxolyn) 5 mg DAILY ORAL 03/19/17 09:00 04/18/17 08:59 Metoprolol Tartrate (Lopressor) 25 mg Q12H ORAL 03/17/17 19:00 04/16/17 18:59 03/19/17 18:20 Morphine Sulfate 2 mg 2 mg Q4H PRN IVP For Pain 4-03/17/17 17:00 03/24/17 16:59 03/19/17 20:41 Ondansetron HCl (Zofran) 4 mg Q6H PRN IVP Nausea & Vomiting 03/17/17 14:30 04/16/17 14:29 03/19/17 06:38 Pantoprazole (Protonix) 40 mg DAILY ORAL 03/19/17 09:00 04/18/17 08:59 03/20/17 08:28 Polyethylene Glycol (Miralax) 17 gm DAILYPRN PRN ORAL Constipation 03/17/17 14:30 04/16/17 14:29 03/19/17 00:48 Sennosides (Senokot) 8.6 mg BIDPRN PRN ORAL Constipation 03/19/17 12:45 04/18/17 12:44 03/19/17 12:43 Sertraline HCl (Zoloft) 200 mg DAILY ORAL 03/18/17 09:00 04/17/17 08:59 03/20/17 08:28 Temazepam (Restoril) 15 mg HSPRN PRN ORAL Insomnia 03/17/17 14:30 03/24/17 14:29 03/19/17 22:43 LAMIN NEWTON Mar 20, 2017 09:20
[2017-03-20] MEDS: Morphine Sulfate 2mg/ml Inj IVP PRN ×2 (11:52→17:51)
[2017-03-20 12:09] VITALS: BP 104/48
[2017-03-20 16:00] VITALS: BP 112/72
--- NOTE | 2017-03-20 17:27 | Cardiology Progress Note ---
Assessment/Plan Assessment/Plan copd exacerbatioon diastolic dysfucntion arf obesity sleep apnea d/c lasix d/ metoprolol keep on acei for cdiastloic dysfucntion control of bp watch cr will follow [id number] Objective Last 24 Hour Vital Signs Date Time Temp Pulse Resp B/P Pulse Ox O2 Delivery O2 Flow Rate FiO2 03/20/17 16:00 98.6 92 20 112/72 93 Nasal Cannula 2.0 03/20/17 12:22 98.2 03/20/17 12:09 98.2 87 22 104/48 94 Nasal Cannula 2.0 03/20/17 12:00 85 03/20/17 09:00 109/50 03/20/17 08:00 109 03/20/17 08:00 97.9 100 21 109/50 95 Nasal Cannula 2.0 03/20/17 07:13 Nasal Cannula 4.0 36 03/20/17 07:13 98 Nasal Cannula 4.0 36 03/20/17 07:12 100 20 Nasal Cannula 4.0 36 03/20/17 07:00 100 109/50 03/20/17 04:00 98.0 87 20 112/54 95 Nasal Cannula 4.0 03/20/17 03:38 87 03/20/17 01:04 73 22 95 Facial 45 03/20/17 00:54 98.0 88 16 115/68 100 Bi-pap 45 03/19/17 23:49 77 25 96 Facial 45 03/19/17 23:42 78 03/19/17 20:16 89 03/19/17 20:00 97.9 89 20 124/74 97 Nasal Cannula 4.0 03/19/17 19:20 Nasal Cannula 3.0 32 03/19/17 19:10 79 20 Nasal Cannula 3.0 03/19/17 19:10 95 Nasal Cannula 3.0 32 03/19/17 18:20 75 115/64 Intake and Output 03/19/17 03/20/17 19:00 07:00 Intake Total 532 ml 182 ml Output Total 900 ml 250 ml Balance -368 ml -68 ml Intake Oral 400 ml 50 ml IV Total 132 ml 132 ml Output Urine Total 900 ml 250 ml Laboratory Tests Test 03/19/17 18:40 03/20/17 05:15 Sodium Level 139 mEQ/L (135-145) 141 mEQ/L (135-145) Potassium Level 4.1 mEQ/L (3.4-4.9) 4.3 mEQ/L (3.4-4.9) Chloride Level 90 mEQ/L (98-107) L 89 mEQ/L (98-107) L Carbon Dioxide Level 40 mEQ/L (20-30) H 40 mEQ/L (20-30) H Anion Gap 9 (5-15) 12 (5-15) Blood Urea Nitrogen 22 mg/dL (7-23) 22 mg/dL (7-23) Creatinine 2.3 mg/dL (0.5-0.9) H 1.8 mg/dL (0.5-0.9) H Estimat Glomerular Filtration Rate 27.0 mL/min (>60) 35.8 mL/min (>60) Glucose Level 114 mg/dL (74-106) H 122 mg/dL (74-106) H Calcium Level 9.0 mg/dL (8.6-10.2) 9.7 mg/dL (8.6-10.2) White Blood Count 9.3 K/UL (4.8-10.8) Red Blood Count 4.74 M/UL (4.20-5.40) Hemoglobin 11.0 G/DL (12.0-16.0) L Hematocrit 37.8 % (37.0-47.0) Mean Corpuscular Volume 80 FL (80-99) Mean Corpuscular Hemoglobin 23.2 PG (27.0-31.0) L Mean Corpuscular Hemoglobin Concent 29.2 G/DL (32.0-36.0) L Red Cell Distribution Width 21.2 % (11.6-14.8) H Platelet Count 308 K/UL (150-450) Mean Platelet Volume 7.0 FL (6.5-10.1) Neutrophils (%) (Auto) 71.4 % (45.0-75.0) Lymphocytes (%) (Auto) 19.4 % (20.0-45.0) L Monocytes (%) (Auto) 5.0 % (1.0-10.0) Eosinophils (%) (Auto) 3.4 % (0.0-3.0) H Basophils (%) (Auto) 0.9 % (0.0-2.0) Total Bilirubin 0.5 mg/dL (0.0-1.2) Aspartate Amino Transf (AST/SGOT) 13 U/L (5-40) Alanine Aminotransferase (ALT/SGPT) 6 U/L (3-33) Alkaline Phosphatase 57 U/L (35-104) Pro-B-Type Natriuretic Peptide 42 pg/mL (0-125) Total Protein 7.1 g/dL (6.6-8.7) Albumin 4.1 g/dL (3.5-5.2) Globulin 3.0 g/dL Albumin/Globulin Ratio 1.3 (1.0-2.7) ANDI ZACARIAS Mar 20, 2017 17:27
[2017-03-20 20:00] VITALS: BP 105/60
--- NOTE | 2017-03-20 22:38 | Consultation ---
DATE OF CONSULTATION: 03/20/2017 CARDIOLOGY CONSULTATION CONSULTING PHYSICIAN: Tyler Batista M.D. REFERRING PHYSICIAN: Win Ro M.D. REASON FOR REFERRAL: Shortness of breath. HISTORY OF PRESENT ILLNESS: This is an elderly female, who is known to me from prior evaluation hospitalization. The patient presented to the hospital because of shortness of breath that has been ongoing for approximately two days prior to her coming into the hospital. She does not really have any chest pain. She has significant orthopnea, in fact, she sleeps in a sitting position. As she uses a CPAP, she has shortness of breath on exertion and at rest. No palpitations and occasional dizziness on standing. She has been coughing and wheezing, and she has had some fevers at home. She presented to the hospital. She really does not have any pain pressure in her chest although she does have some abdominal pain. PAST MEDICAL HISTORY: Extensive and includes a high blood pressure, high cholesterol, "congestive heart failure," COPD with multiple exacerbations, uterine fibroids, and prior echocardiogram shows ejection fraction 50% in 2017. MEDICATIONS: Her medications at the time of this dictation include, Tylenol, Robitussin, subcutaneous heparin, DuoNeb, Levaquin, lisinopril 10 mg daily, metoprolol 25 q.12 h. four doses were given, morphine, Zofran, Protonix, MiraLax, Senokot, Zoloft 200 mg daily, Restoril, and metolazone 5 mg daily, REVIEW OF SYSTEMS: Gastrointestinal: She has had epigastric pain. No nausea or vomiting, and she had constipation. She has not had a bowel movement for about three or four days and there is no bloody stools or black tarry. Genitourinary: She denies. Pulmonary: Positive as mentioned in History of Present Illness. Constitutional: Positive for fevers. Neurological: Negative. PHYSICAL EXAMINATION: GENERAL: Elderly female, no apparent respiratory distress, so she is obese morbidly. NECK: Supple. No jugular venous distention. VITAL SIGNS: Blood pressure is anywhere between 104/48 to 212/72 with heart rates in the 80s to 100 beats per minute, temperature 98.6, and respirations of 20. LUNGS: Decreased breath sounds are noted bilaterally. CARDIAC: Regular rate and rhythm. No heaves, thrills, gallops, or rubs noted. ABDOMEN: Obese. Positive bowel sounds. There is some epigastric tenderness to deep palpation. No right upper quadrant tenderness. No rebound tenderness. No guarding. No rigidity. There is no pain or tenderness in the lower abdominal area. EXTREMITIES: No clubbing, cyanosis, or edema. NEUROLOGICAL: She is awake, alert, and responsive, in no apparent respiratory distress. LABORATORY DATA: Laboratory values, white count of 9.3, hemoglobin 11, and platelet count of 308,00. She has a sodium of 141, potassium 4.3, chloride 89, bicarbonate of 40, BUN of 22, creatinine of 1.8, and glucose of 122. She had a creatinine of 2.3 at the time of her admission yesterday and the time before her creatinine was 0.9 on 03/18/2017. No present INR. IMAGING DATA: Her imaging shows she had an echocardiogram on 03/17/2017 and that showed a ejection fraction of 55% to 60%. No significant valvular regurgitation, but evidence of diastolic relaxation abnormality of significant degree, suggestive of diastolic dysfunction. Chest x-ray is stable with bilateral congestive changes. Her proBNP was 42 today but 1600 in May of 2015. ASSESSMENT: 1. Chronic obstructive pulmonary disease with exacerbation. 2. History of diastolic dysfunction. 3. Acute renal failure. 4. Morbid obesity. 5. Sleep apnea, on CPAP at home. 6. Hypertension history. 7. Hyperlipidemia. PLAN: Dr. Ro, this patient was seen in cardiac consultation at the present time because of her COPD. I would recommend discontinuing the metoprolol for the time being. I would discontinue use of Lasix for the time being. She does have significant diastolic dysfunction, but her proBNP is actually normal indicating that she probably has adequate volume control and in light of the fact that her creatinine has increased. I am hesitant to recommend further diuresis at this time. I would continue to follow and continue treatment for her COPD and blood pressure control, and further recommendations based on the results of the findings. Tyler Batista M.D. DR: EVAN JOB#: [id number] CC:
[2017-03-21] VITALS: BP 133/65
[2017-03-21] MEDS: Morphine Sulfate 2mg/ml Inj IVP PRN ×3 (01:56→19:47)
[2017-03-21 04:00] VITALS: BP 113/60
[2017-03-21 05:28] LABS: BASOPHILS % (AUTO) 0.9 % (0.0-2.0); EOSINOPHILS % (AUTO) 3.2 % (0.0-3.0); LYMPHOCYTES % (AUTO) 26.9 % (20.0-45.0); MEAN CORPUSCULAR HEMOGLOBIN 23.3 PG (27.0-31.0); MEAN CORPUSCULAR HGB CONC 29.3 G/DL (32.0-36.0); MEAN CORPUSCULAR VOLUME 80 FL (80-99); MEAN PLATELET VOLUME 6.5 FL (6.5-10.1); MONOCYTES % (AUTO) 5.5 % (1.0-10.0); NEUTROPHILS % (AUTO) 63.5 % (45.0-75.0); PLATELET COUNT 312 K/UL (150-450); RED BLOOD COUNT 4.48 M/UL (4.20-5.40); RED CELL DISTRIBUTION WIDTH 20.7 % (11.6-14.8); WHITE BLOOD COUNT 8.7 K/UL (4.8-10.8)
[2017-03-21 05:37] LABS: ALANINE AMINOTRANSFERASE 8 U/L (3-33); ALBUMIN/GLOBULIN RATIO 1.2 (1.0-2.7); ASPARTATE AMINO TRANSFERASE 12 U/L (5-40); CALCIUM 9.4 mg/dL (8.6-10.2); CHLORIDE 89 mEQ/L (98-107); GLOMERULAR FILTRATION RATE > 60 mL/min (>60); HEMOLYSIS 0; POTASSIUM 4.3 mEQ/L (3.4-4.9); SODIUM 139 mEQ/L (135-145); TOTAL PROTEIN 7.1 g/dL (6.6-8.7)
[2017-03-21 05:43] LABS: ANION GAP 10 (5-15); CARBON DIOXIDE 40 mEQ/L (20-30)
--- NOTE | 2017-03-21 07:59 | Diagnostic Imaging Report ---
Indications: DYSPNEA Technique: Portable AP chest Findings: Comparison: 03/18/2017 Cardiomegaly, bilateral interstitial infiltrates, subsegmental atelectasis right midlung persist, apparently decreased. No new abnormality identified. IMPRESSION: Improving bilateral congestive changes Improving subsegmental atelectasis right midlung
[2017-03-21 08:03] VITALS: BP 121/73
[2017-03-21] MEDS: Sertraline 100mg tab ORAL SCH (08:17)
[2017-03-21] MEDS: Lisinopril 10mg tab ORAL SCH (08:18)
[2017-03-21] MEDS: Heparin 5000 units/ml inj SUBQ SCH ×2 (08:19→20:50)
[2017-03-21] MEDS ORDERED: Levofloxacin 250mg/D5W 50ml IVPB SCH (11:00)
[2017-03-21 12:11] VITALS: BP 118/58
[2017-03-21] MEDS ORDERED: NS 275ml ONE (13:58)
[2017-03-21] MEDS ORDERED: Tubing IV Secondary IV ONE (13:58)
[2017-03-21 16:08] VITALS: BP 121/65
--- NOTE | 2017-03-21 16:47 | Cardiology Progress Note ---
Assessment/Plan Assessment/Plan 1. Chronic obstructive pulmonary disease with exacerbation. 2. History of diastolic dysfunction. 3. Acute renal failure. 4. Morbid obesity. 5. Sleep apnea, on CPAP at home. 6. Hypertension history. 7. Hyperlipidemia. resume lasix 20 bid off metoprolol keep on acei for diastolic dysfunction control of bp cr is better Subjective Cardiovascular: Denies: chest pain Respiratory: Denies: shortness of breath - better Gastrointestinal/Abdominal: Denies: abdominal pain Genitourinary: Denies: burning Objective Last 24 Hour Vital Signs Date Time Temp Pulse Resp B/P Pulse Ox O2 Delivery O2 Flow Rate FiO2 03/21/17 16:08 98.2 88 22 121/65 96 Nasal Cannula 2.0 03/21/17 12:11 98.8 88 18 118/58 93 Nasal Cannula 2.0 03/21/17 12:00 99 03/21/17 11:02 98.1 03/21/17 08:18 121/73 03/21/17 08:03 98.1 116 20 121/73 97 Nasal Cannula 2.0 03/21/17 08:00 104 03/21/17 04:00 98.0 90 18 113/60 100 Nasal Cannula 03/21/17 03:47 129 03/21/17 00:00 99.1 68 18 133/65 98 Room Air 03/20/17 23:42 129 03/20/17 22:23 88 31 96 Facial 45 03/20/17 20:26 Nasal Cannula 2.0 28 03/20/17 20:26 93 Nasal Cannula 2.0 28 03/20/17 20:25 103 20 Nasal Cannula 2.0 28 03/20/17 20:00 98.1 91 20 105/60 92 Room Air 03/20/17 19:53 92 General Appearance: alert Neck: supple Cardiovascular: normal rate, regular rhythm Respiratory/Chest: lungs clear, decreased breath sounds Abdomen: normal bowel sounds, non tender, soft Extremities: no swelling Intake and Output 03/20/17 03/21/17 19:00 07:00 Intake Total 427 ml Output Total 1950 ml 500 ml Balance -1523 ml -500 ml Intake Oral 350 ml IV Total 77 ml Output Urine Total 1950 ml 500 ml # Voids 1 Laboratory Tests Test 03/21/17 04:00 White Blood Count 8.7 K/UL (4.8-10.8) Red Blood Count 4.48 M/UL (4.20-5.40) Hemoglobin 10.4 G/DL (12.0-16.0) L Hematocrit 35.6 % (37.0-47.0) L Mean Corpuscular Volume 80 FL (80-99) Mean Corpuscular Hemoglobin 23.3 PG (27.0-31.0) L Mean Corpuscular Hemoglobin Concent 29.3 G/DL (32.0-36.0) L Red Cell Distribution Width 20.7 % (11.6-14.8) H Platelet Count 312 K/UL (150-450) Mean Platelet Volume 6.5 FL (6.5-10.1) Neutrophils (%) (Auto) 63.5 % (45.0-75.0) Lymphocytes (%) (Auto) 26.9 % (20.0-45.0) Monocytes (%) (Auto) 5.5 % (1.0-10.0) Eosinophils (%) (Auto) 3.2 % (0.0-3.0) H Basophils (%) (Auto) 0.9 % (0.0-2.0) Sodium Level 139 mEQ/L (135-145) Potassium Level 4.3 mEQ/L (3.4-4.9) Chloride Level 89 mEQ/L (98-107) L Carbon Dioxide Level 40 mEQ/L (20-30) H Anion Gap 10 (5-15) Blood Urea Nitrogen 20 mg/dL (7-23) Creatinine 1.0 mg/dL (0.5-0.9) H Estimat Glomerular Filtration Rate > 60 mL/min (>60) Glucose Level 117 mg/dL (74-106) H Calcium Level 9.4 mg/dL (8.6-10.2) Total Bilirubin 0.3 mg/dL (0.0-1.2) Aspartate Amino Transf (AST/SGOT) 12 U/L (5-40) Alanine Aminotransferase (ALT/SGPT) 8 U/L (3-33) Alkaline Phosphatase 55 U/L (35-104) Pro-B-Type Natriuretic Peptide 48 pg/mL (0-125) Total Protein 7.1 g/dL (6.6-8.7) Albumin 4.0 g/dL (3.5-5.2) Globulin 3.1 g/dL Albumin/Globulin Ratio 1.2 (1.0-2.7) Objective Current Medications Medications (Trade) Dose Ordered Sig/May Route PRN Reason Start Time Stop Time Status Last Admin Dose Admin Acetaminophen (Tylenol) 650 mg Q4H PRN ORAL Fever 03/17/17 14:30 04/16/17 14:29 Albuterol/ Ipratropium (DuoNeb 0.5-3(2.5)mg/3ml) 3 ml Q4H PRN HHN Shortness of Breath 03/17/17 14:30 03/22/17 14:29 Dextrose (Dextrose 50%) STAT PRN IV Hypoglycemia 03/17/17 14:30 04/16/17 14:29 Guaifenesin (Robitussin) 200 mg Q4H PRN ORAL For Cough 03/18/17 16:15 04/17/17 16:14 03/20/17 04:42 Heparin Sodium (Porcine) (Heparin 5000 units/ml) 5,000 units EVERY 12 HOURS SUBQ 03/17/17 21:00 04/16/17 20:59 03/21/17 08:19 Levofloxacin (Levaquin) 250 mg Q24H ORAL 03/22/17 11:00 03/28/17 10:59 Lisinopril (Zestril) 10 mg DAILY ORAL 03/18/17 09:00 04/17/17 08:59 03/21/17 08:18 Morphine Sulfate (Morphine Sulfate) 2 mg Q4H PRN IVP For Pain 4-10 03/17/17 17:00 03/24/17 16:59 03/21/17 10:32 Ondansetron HCl (Zofran) 4 mg Q6H PRN IVP Nausea & Vomiting 03/17/17 14:30 04/16/17 14:29 03/21/17 02:00 Pantoprazole (Protonix) 40 mg DAILY ORAL 03/19/17 09:00 04/18/17 08:59 03/21/17 08:18 Polyethylene Glycol (Miralax) 17 gm DAILYPRN PRN ORAL Constipation 03/17/17 14:30 04/16/17 14:29 03/19/17 00:48 Sennosides (Senokot) 8.6 mg BIDPRN PRN ORAL Constipation 03/19/17 12:45 04/18/17 12:44 03/19/17 12:43 Sertraline HCl (Zoloft) 200 mg DAILY ORAL 03/18/17 09:00 04/17/17 08:59 03/21/17 08:17 Temazepam (Restoril) 15 mg HSPRN PRN ORAL Insomnia 03/17/17 14:30 03/24/17 14:29 03/20/17 22:08 ANDI ZACARIAS Mar 21, 2017 16:47
[2017-03-21 20:23] VITALS: BP 114/55
[2017-03-22] VITALS: BP 108/57
[2017-03-22] MEDS: guaiFENesin 100mg/5ml Liq ud ORAL PRN (01:51)
[2017-03-22 04:21] VITALS: BP 140/72
[2017-03-22 08:00] VITALS: BP 143/67
[2017-03-22] MEDS: Sertraline 100mg tab ORAL SCH (09:08)
[2017-03-22] MEDS: Heparin 5000 units/ml inj SUBQ SCH (09:10)
[2017-03-22 09:11] VITALS: BP 143/67
[2017-03-22] MEDS: Lisinopril 10mg tab ORAL SCH (09:11)
--- NOTE | 2017-03-22 13:09 | Pulmonology Progress Note ---
Assessment/Plan Problems: (1) Respiratory failure with hypoxia (2) Acute exacerbation of CHF (congestive heart failure) (3) Purulent bronchitis (4) Morbid obesity (5) Diabetes mellitus Assessment/Plan feeling a little better every day on lasix drip measure intake, output sliding scale check sputum continue abx. check cultures bipap at night bnp decreasing might go to telemetry dc planning to home in am Subjective ROS Limited/Unobtainable: No Interval Events: late note for 03/21. less short of breath , no cough Allergies: Coded Allergies: Lettuce (Verified Allergy, Severe, Anaphylaxis, 06/24/15) Uncoded Allergies: seafood (Allergy, Severe, anaphylaxic shock, 12/11/16) all seafoo Objective Last 24 Hour Vital Signs Date Time Temp Pulse Resp B/P Pulse Ox O2 Delivery O2 Flow Rate FiO2 03/22/17 09:11 143/67 03/22/17 08:41 Nasal Cannula 2.0 28 03/22/17 08:41 98 Nasal Cannula 3.0 32 03/22/17 08:39 109 21 Nasal Cannula 3.0 32 03/22/17 08:00 98.0 111 19 143/67 Nasal Cannula 2.0 90 03/22/17 04:21 98.3 101 19 140/72 95 Nasal Cannula 03/22/17 04:00 98 03/22/17 00:00 92 03/22/17 00:00 98.7 97 19 108/57 97 Nasal Cannula 03/21/17 20:23 98.2 84 18 114/55 90 Nasal Cannula 03/21/17 20:00 89 03/21/17 20:00 78 18 Nasal Cannula 2.0 28 03/21/17 20:00 98 Nasal Cannula 2.0 28 03/21/17 20:00 Nasal Cannula 2.0 28 03/21/17 16:08 98.2 88 22 121/65 96 Nasal Cannula 2.0 03/21/17 16:00 96 Intake and Output 03/21/17 03/22/17 19:00 07:00 Intake Total 630 ml 240 ml Output Total 1150 ml Balance -520 ml 240 ml Intake Oral 580 ml 240 ml IV Total 50 ml Output Urine Total 1150 ml # Voids 3 General Appearance: WD/WN HEENT: normocephalic Respiratory/Chest: chest wall non-tender, lungs clear Cardiovascular: normal peripheral pulses, normal rate Abdomen: normal bowel sounds, soft, non tender Genitourinary: normal external genitalia Extremities: no cyanosis Skin: no rash, no lesions LAMIN NEWTON Mar 22, 2017 13:09
--- NOTE | 2017-03-22 13:11 | Pulmonology Progress Note ---
Assessment/Plan Problems: (1) Respiratory failure with hypoxia (2) Acute exacerbation of CHF (congestive heart failure) (3) Purulent bronchitis (4) Morbid obesity (5) Diabetes mellitus Assessment/Plan feeling a little better every day king lasix to po upon discahrge measure intake, output sliding scale bipap at night bnp decreasing might go to telemetry dc planning to home with f/u with primary physician. Subjective ROS Limited/Unobtainable: No Interval Events: asymptomatic Allergies: Coded Allergies: Lettuce (Verified Allergy, Severe, Anaphylaxis, 06/24/15) Uncoded Allergies: seafood (Allergy, Severe, anaphylaxic shock, 12/11/16) all seafoo Objective Last 24 Hour Vital Signs Date Time Temp Pulse Resp B/P Pulse Ox O2 Delivery O2 Flow Rate FiO2 03/22/17 09:11 143/67 03/22/17 08:41 Nasal Cannula 2.0 28 03/22/17 08:41 98 Nasal Cannula 3.0 32 03/22/17 08:39 109 21 Nasal Cannula 3.0 32 03/22/17 08:00 98.0 111 19 143/67 Nasal Cannula 2.0 90 03/22/17 04:21 98.3 101 19 140/72 95 Nasal Cannula 03/22/17 04:00 98 03/22/17 00:00 92 03/22/17 00:00 98.7 97 19 108/57 97 Nasal Cannula 03/21/17 20:23 98.2 84 18 114/55 90 Nasal Cannula 03/21/17 20:00 89 03/21/17 20:00 78 18 Nasal Cannula 2.0 28 03/21/17 20:00 98 Nasal Cannula 2.0 28 03/21/17 20:00 Nasal Cannula 2.0 28 03/21/17 16:08 98.2 88 22 121/65 96 Nasal Cannula 2.0 03/21/17 16:00 96 Intake and Output 03/21/17 03/22/17 19:00 07:00 Intake Total 630 ml 240 ml Output Total 1150 ml Balance -520 ml 240 ml Intake Oral 580 ml 240 ml IV Total 50 ml Output Urine Total 1150 ml # Voids 3 General Appearance: WD/WN HEENT: normocephalic, atraumatic Respiratory/Chest: chest wall non-tender, lungs clear, normal breath sounds Breasts: no masses Cardiovascular: normal peripheral pulses, no JVD Abdomen: normal bowel sounds Genitourinary: normal external genitalia Skin: no rash LAMIN NEWTON Mar 22, 2017 13:11
--- NOTE | 2017-03-24 09:22 | Discharge Summary ---
Discharge Summary Hospital Course Date of Admission Mar 17, 2017 at 13:25 Date of Discharge Mar 22, 2017 at 12:56 Admitting Diagnosis DYSPNEA HPI Christina Jimenez is a 51 year old female who was admitted on Mar 17, 2017 at 13:25 for Dyspnea Hospital Course dc summary #[id number] Discharge Medications Continued Medications: Albuterol Sulfate (Ventolin Hfa) 18 Gm Hfa.aer.ad 1 PUFF INH EVERY 6 HOURS PRN for Shortness of Breath, #18 GM 0 Refills Furosemide (Furosemide) 80 Mg Tablet 20 MG ORAL BID, TAB Lisinopril (Lisinopril*) 5 Mg Tablet 10 MG ORAL DAILY, TAB Sertraline Hcl* (Zoloft*) 100 Mg Tablet 200 MG ORAL DAILY, TAB Tiotropium [place]* (Spiriva*) 18 Mcg Cap.w.dev 1 PUFF INH DAILY PRN for Shortness of Breath, EA Discharge Condition Upon Discharge: stable Discharge Disposition Patient was discharged to Home (01) Discharge Diagnoses: Discharge Instructions Discharge Instructions Special Instructions I have been assigned to complete a D/C Summary on this account. I was not involved in the patient management Arminda Arnold NP ([place]te[place]) Mar 24, 2017 09:22
--- NOTE | 2017-03-25 01:58 | Discharge Summary 2 SIG ---
DATE OF ADMISSION: 03/17/2017 DATE OF DISCHARGE: 03/22/2017 REASON FOR ADMISSION AND HISTORY OF PRESENT ILLNESS: The patient is a 51-year-old female, presented to emergency room with acute shortness of breath for one day. She reported cough, but no fever and no chills. She stated that she is compliant with Lasix. She uses home oxygen chronically and intermittently. Family member rate oxygen to three liters nasal cannula, usually uses two liters without much improvement. The patient is using CPAP at home for obstructive sleep apnea. The patient was given two rounds of bronchodilator treatment by the paramedics. The patient had a previous admission in January 2017 with COPD/CHF exacerbation. At that time, echo was done, ejection fraction was 50%. Perfusion scan revealed ejection fraction of 85% and venous Duplex of bilateral extremity was negative for DVT. Workup in the emergency room revealed EKG normal sinus rhythm. No PVC. No ectopy, but shows T-wave inversion in leads II, III, aVF, and V2 through V6 (seen on previous EKG), and chest x-ray revealed bilateral pulmonary congestion versus parenchymal disease. No leukocytosis, stable hemoglobin and hematocrit. Troponin is negative. ProBNP is 331. Chest x-ray with CHF, possibly pneumonia. The patient was placed on BiPAP while in the ED and respiratory status improved. Lasix was given. Blood culture was sent. The patient was admitted for further management. ADMITTING DIAGNOSES: 1. Acute hypoxemic respiratory failure. 2. Purulent bronchitis. 3. Congestive heart failure possible exacerbation. 4. Chronic obstructive pulmonary disease with exacerbation. 5. Morbid obesity. 6. Diabetes. 7. Hypertension. HOSPITAL COURSE: The patient admitted to telemetry floor. Cardiology consult was requested. The patient initially was on Lasix drip. Renal parameters, electrolytes, intake and output were closely monitored. Serial troponin x3 were negative. The patient was ruled out for acute LA. ProBNP is actually not severely elevated at 331, borderline. The patient developed acute renal failure on 03/19/2017 with BUN of 22 and creatinine 2.3, likely secondary to Lasix drip. Lasix drip discontinued, started on Lasix IV. Prior to discharge BUN 20 and creatinine 1.0. Header Boss recommended the patient to be off beta-maya and discontinue Lasix, which was discontinued for the last two days. When renal parameters return back to normal, draw frame runner recommended to resume Lasix but with a decreased dose. Bronchodilators provided. Supplemental oxygen provided as needed. Antitussive given as needed. The patient was on empiric antibiotics. DVT and GI prophylaxis provided. Follow up chest x-ray revealed improvement in bilateral congestive changes. Blood culture were negative. CPAP was at night, since the patient has history of obstructive sleep apnea, using BiPAP at home. Echocardiogram revealed ejection fraction of 55% to 60% and mild LVH and significant left diastolic dysfunction. Statin was continued. Blood pressure was managed with JUAN- inhibitor and diuretic and was stable. Electrolytes stable. The patient is stable for discharge. Follow up with the draw frame runner per insurance plan. DISCHARGE DIAGNOSES: 1. Acute hypoxemic respiratory failure, resolved. 2. Chronic obstructive pulmonary disease exacerbation. 3. Purulent bronchitis. 4. Congestive heart failure exacerbation. 5. Diastolic dysfunction. 6. Acute renal failure, resolved. 7. Morbid obesity. 8. Obstructive sleep apnea. 9. Hypertension. 10. Hyperlipidemia. 11. Diabetes. Of note, blood sugar was managed with sliding scale of insulin. We described diabetes. DISCHARGE MEDICATIONS: See medication reconciliation list. DISCHARGE INSTRUCTIONS: The patient to follow up with the primary medical doctor and draw frame runner, per insurance plan. Win Ro M.D. I have been assigned to dictate discharge summary on this account and I was not involved in the patient's management. Arminda regaladopriyanka N.PJohnie DR: Terry JOB#: [id number] CC:
== END 2017-03-22 12:56 | disposition home or self-care (01) | DRG 291 ==
LOC: EDBD 12:27 → EMR 12:57 → 2W 13:25 → EDBEDREQSVC 14:23 → EDBEDREQ 15:38 → 2W 16:17 → 2E 03-21 21:43
PROC: 5A09357 Assistance with Respiratory Ventilation, Less than 24 Consecutive Hours, Continuous Positive Airway Pressure (ICD-10-PCS; principal; 2017-03-17)
DX: I50.33 Acute on chronic diastolic (congestive) heart failure (principal); J96.91 Respiratory failure, unspecified with hypoxia; Z68.43 Body mass index [BMI] 50.0-59.9, adult; J44.1 Chronic obstructive pulmonary disease with (acute) exacerbation; E66.01 Morbid (severe) obesity due to excess calories; I10 Essential (primary) hypertension; J41.1 Mucopurulent chronic bronchitis; E11.9 Type 2 diabetes mellitus without complications; K59.00 Constipation, unspecified; G47.30 Sleep apnea, unspecified; E78.5 Hyperlipidemia, unspecified
CPT/HCPCS: 36415; 71010; 80048; 80053; 80069; 82550; 82553; 83880; 84484; 85025; 87040; 93005; 93306; 93970; 94660; 94664; 94760; J2405; J8499

== ENCOUNTER 2017-05-03 20:40 | Inpatient (IN) | payer MEDICARE, OTHER ==
[~2017-05-03] VITALS: Ht 162.6 cm; Wt 141.5 kg
[~2017-05-03 20:40] MED LIST changes: +BANOPHEN25 MG PO; +FUROSEMIDE80 MG ORAL; +NITROGLYCERIN0.4 MG SL; +VENTOLIN HFA18 GM INH
[2017-05-03] MEDS ORDERED: Albuterol ud Inhalation HHN ONE (20:45)
[2017-05-03] MEDS ORDERED: Ipratropium 0.02% Inh Soln 2.5ml UD HHN ONE (20:45)
[2017-05-03 21:01] VITALS: BP 156/75
--- NOTE | 2017-05-03 21:09 | Emergency Room Report ---
History of Present Illness General Chief Complaint: Dyspnea/Respdistress Source: Patient (SAROJ LIANG D.O.) Present Illness HPI Patient presents with complaints of shortness of breath Patient reports pain to the left ear left dental abscess Diffuse body pain requesting pain medication upon arrival Denies any back or flank pain however Patient did feel short of breath and does not feel that the water pills or removing all the fluid off her legs Denies any vomiting however she has had diarrhea Denies any dysuria frequency (SAROJ LIANG D.O.) Allergies: Coded Allergies: Lettuce (Verified Allergy, Severe, Anaphylaxis, 06/24/15) Uncoded Allergies: seafood (Allergy, Severe, anaphylaxic shock, 12/11/16) all seafoo Patient History Past Medical History: see triage record Pertinent Family History: none Last Menstrual Period: NONE Reviewed Nursing Documentation: PMH: Agreed, PSxH: Agreed (SAROJ LIANG D.O.) Nursing Documentation-PMH Hx Hypertension: Yes Hx Pacemaker: No Hx Asthma: Yes Hx COPD: Yes Hx Diabetes: No Hx Cancer: No Hx Gastrointestinal Problems: Yes Hx Dialysis: No Hx Neurological Problems: Yes Hx Cerebrovascular Accident: No Hx Seizures: No Hx Dizziness: Yes Hx Headaches: Yes (SAROJ LIANG D.O.) Review of Systems All Other Systems: negative except mentioned in HPI (SAROJ LIANG D.O.) Physical Exam Vital Signs Date Time Temp Pulse Resp B/P Pulse Ox O2 Delivery O2 Flow Rate FiO2 05/03/17 20:33 98.1 79 22 156/5 97 Non-Rebreather 15.0 Sp02 EP Interpretation: reviewed, normal General Appearance: no apparent distress Head: normocephalic, atraumatic Eyes: bilateral eye EOMI, bilateral eye PERRL ENT: other - Multiple into the left lower dental region likely dental abscess Neck: supple, thyroid normal Respiratory: crackles - In both lower lobes Cardiovascular #1: regular rate, rhythm Gastrointestinal: non tender, soft Genitourinary: no CVA tenderness Musculoskeletal: normal inspection, back normal Neurologic: alert, oriented x3, responsive Skin: other - Dependent edema in both lower extremities Lymphatic: no adenopathy (SAROJ LIANG D.O.) Medical Decision Making Diagnostic Impression: Primary Impression: Dyspnea Additional Impressions: Respiratory distress Acute exacerbation of CHF (congestive heart failure) Cocaine abuse Rhythm Strip Diag. Results EP Interpretation: yes Rate: 79 Rhythm: NSR, no PVC's, no ectopy (SAROJ LIANG D.O.) Chest X-Ray Diagnostic Results EP Interpretation: Yes Findings: no effusion, no pneumothorax, other - Pulmonary congestion, right perihilar fullness Number of Views: 1 (SAROJ LIANG D.O.) Last Vital Signs Date Time Temp Pulse Resp B/P Pulse Ox O2 Delivery O2 Flow Rate FiO2 05/03/17 20:33 98.1 79 22 156/5 97 Non-Rebreather 15.0 Status: improved (SAROJ LIANG D.O.) Disposition: ADMITTED INPATIENT Condition: Serious SAROJ LIANG D.O. May 03, 2017 21:09 CAMRON GANT M.D. May 03, 2017 22:23
[2017-05-03] MEDS ORDERED: Morphine Sulfate 4mg/ml Inj IVP ONE (21:15)
[2017-05-03 21:23] LABS: BASOPHILS % (AUTO) 0.9 % (0.0-2.0); LYMPHOCYTES % (AUTO) 22.2 % (20.0-45.0); MEAN CORPUSCULAR HGB CONC 30.5 G/DL (32.0-36.0); MEAN CORPUSCULAR VOLUME 79 FL (80-99); MEAN PLATELET VOLUME 6.4 FL (6.5-10.1); MONOCYTES % (AUTO) 4.5 % (1.0-10.0); NEUTROPHILS % (AUTO) 70.5 % (45.0-75.0); PLATELET COUNT 232 K/UL (150-450); RED BLOOD COUNT 4.18 M/UL (4.20-5.40); RED CELL DISTRIBUTION WIDTH 19.5 % (11.6-14.8); WHITE BLOOD COUNT 10.1 K/UL (4.8-10.8)
[2017-05-03 21:36] LABS: APPEARANCE,URINE CLEAR; KETONES,URINE NEGATIVE (NEGATIVE); LEUKOCYTE ESTERASE ,URINE NEGATIVE (NEGATIVE); NITRITE,URINE NEGATIVE (NEGATIVE); PH,URINE 6 (4.5-8.0); PROTEIN,URINE NEGATIVE (NEGATIVE); UROBILINOGEN,URINE NORMAL MG/DL (0.0-1.0)
[2017-05-03 21:41] LABS: INR 0.9 (0.9-1.1); PROTHROMBIN TIME 9.2 SEC (9.30-11.50)
[2017-05-03 21:44] LABS: ALANINE AMINOTRANSFERASE 7 U/L (3-33); ALBUMIN/GLOBULIN RATIO 1.8 (1.0-2.7); ANION GAP 11 (5-15); ASPARTATE AMINO TRANSFERASE 9 U/L (5-40); CARBON DIOXIDE 33 mEQ/L (20-30); CHLORIDE 99 mEQ/L (98-107); CREATININE 0.8 mg/dL (0.5-0.9); GLOMERULAR FILTRATION RATE > 60 mL/min (>60); HEMOLYSIS 18; LIPASE 31 U/L (< 60); POTASSIUM 3.3 mEQ/L (3.4-4.9); SODIUM 143 mEQ/L (135-145); TOTAL PROTEIN 6.3 g/dL (6.6-8.7)
[2017-05-03 21:45] LABS: TROPONIN I < 0.30 ng/mL (<=0.30)
[2017-05-03 21:45] LABS: ABG ALLEN TEST POSITIVE; ABG BASE EXCESS 8.7; ABG PCO2 66.9 mmHg (35.0-45.0)
[2017-05-03] MEDS ORDERED: METOPROLOL TART25 MG ORAL (21:53)
[2017-05-03] MEDS ORDERED: BANOPHEN50 MG PO (21:53)
[2017-05-03] MEDS ORDERED: LISINOPRIL20 MG ORAL (21:53)
[2017-05-03] MEDS ORDERED: SERTRALINE HCL100 MG PO (21:53)
[2017-05-03] MEDS ORDERED: TRAMADOL HCL100 M2 ORAL (21:53)
[2017-05-03] MEDS ORDERED: XOPENEX0.63 MG/3 HHN (21:54)
[2017-05-03 21:55] LABS: CKMB < 1.5 ng/mL (< 3.8)
[2017-05-03 22:00] VITALS: BP 153/70
[2017-05-03] MEDS ORDERED: DuoNeb 0.5-3(2.5)mg/3ml neb HHN PRN (22:00)
[2017-05-03] MEDS ORDERED: Miralax 17gm pkt ORAL PRN (22:00)
[2017-05-04] VITALS: BP 123/75
[2017-05-04 04:00] VITALS: BP 130/64
[2017-05-04 06:34] LABS: BASOPHILS % (AUTO) 0.8 % (0.0-2.0); EOSINOPHILS % (AUTO) 2.1 % (0.0-3.0); LYMPHOCYTES % (AUTO) 19.1 % (20.0-45.0); MEAN CORPUSCULAR HEMOGLOBIN 23.5 PG (27.0-31.0); MEAN CORPUSCULAR HGB CONC 30.2 G/DL (32.0-36.0); MEAN CORPUSCULAR VOLUME 78 FL (80-99); MEAN PLATELET VOLUME 6.6 FL (6.5-10.1); MONOCYTES % (AUTO) 6.9 % (1.0-10.0); NEUTROPHILS % (AUTO) 71.1 % (45.0-75.0); PLATELET COUNT 248 K/UL (150-450); RED BLOOD COUNT 4.33 M/UL (4.20-5.40); RED CELL DISTRIBUTION WIDTH 20.3 % (11.6-14.8); WHITE BLOOD COUNT 9.7 K/UL (4.8-10.8)
[2017-05-04 06:50] LABS: ANION GAP 11 (5-15); CARBON DIOXIDE 37 mEQ/L (20-30); CHLORIDE 97 mEQ/L (98-107); CREATININE 0.8 mg/dL (0.5-0.9); GLOMERULAR FILTRATION RATE > 60 mL/min (>60); HEMOLYSIS 0; PHOSPHORUS 5.6 mg/dL (2.5-4.8); POTASSIUM 3.1 mEQ/L (3.4-4.9); SODIUM 145 mEQ/L (135-145)
[2017-05-04 07:19] LABS: TROPONIN I < 0.30 ng/mL (<=0.30)
[2017-05-04 08:00] VITALS: BP 116/63
[2017-05-04] MEDS: Morphine Sulfate 4mg/ml Inj IVP PRN ×4 (08:12→22:47)
[2017-05-04] MEDS: Aspirin EC 81mg tab ORAL SCH (08:39)
[2017-05-04] MEDS: Sertraline 100mg tab ORAL SCH (08:39)
[2017-05-04] MEDS: Lisinopril 2.5mg tab ORAL SCH (08:40)
[2017-05-04] MEDS: Heparin 5000 units/ml inj SUBQ SCH ×2 (08:41→21:24)
--- NOTE | 2017-05-04 09:02 | Cardiology Progress Note ---
Assessment/Plan Assessment/Plan copd exacerbation chest pain atypical chronic abn ekg htn obeisty arleen in ability to use cpap du to lower jaw pain low jaw pain odontogenic somnolence due to arleen and pain med trop neg ekg unchanged since 2013 continue treatment for pulm issues k supplement hold today nay since has had recent diarrhea resum tomorrow needs dental eval anti acid in her stomach may be adose of nsaid for jaw pain [id number] Objective Last 24 Hour Vital Signs Date Time Temp Pulse Resp B/P Pulse Ox O2 Delivery O2 Flow Rate FiO2 05/04/17 08:40 130/64 05/04/17 04:00 97.7 92 20 130/64 96 Nasal Cannula 3.0 100 05/04/17 04:00 93 05/04/17 00:00 100 05/04/17 00:00 97.5 90 20 123/75 100 Nasal Cannula 3.0 100 05/03/17 22:11 98.1 84 18 153/70 100 Nasal Cannula 3.0 100 05/03/17 22:02 98.1 05/03/17 22:00 84 18 153/70 100 Nasal Cannula 3.0 05/03/17 21:09 82 20 100 Venturi Mask 05/03/17 21:08 77 18 99 Non-Rebreather 100 05/03/17 21:01 79 22 Non-Rebreather 15.0 05/03/17 21:01 98.1 79 22 156/75 97 Non-Rebreather 15.0 05/03/17 20:33 98.1 79 22 156/5 97 Non-Rebreather 15.0 Intake and Output 05/03/17 05/04/17 19:00 07:00 Intake Total 240 ml Output Total 200 ml Balance 40 ml Intake Oral 240 ml Output Urine Total 200 ml # Voids 3 Laboratory Tests Test 05/03/17 20:45 05/03/17 21:15 05/03/17 21:20 05/03/17 21:55 White Blood Count 10.1 K/UL (4.8-10.8) Red Blood Count 4.18 M/UL (4.20-5.40) L Hemoglobin 10.0 G/DL (12.0-16.0) L Hematocrit 32.9 % (37.0-47.0) L Mean Corpuscular Volume 79 FL (80-99) L Mean Corpuscular Hemoglobin 24.0 PG (27.0-31.0) L Mean Corpuscular Hemoglobin Concent 30.5 G/DL (32.0-36.0) L Red Cell Distribution Width 19.5 % (11.6-14.8) H Platelet Count 232 K/UL (150-450) Mean Platelet Volume 6.4 FL (6.5-10.1) L Neutrophils (%) (Auto) 70.5 % (45.0-75.0) Lymphocytes (%) (Auto) 22.2 % (20.0-45.0) Monocytes (%) (Auto) 4.5 % (1.0-10.0) Eosinophils (%) (Auto) 2.0 % (0.0-3.0) Basophils (%) (Auto) 0.9 % (0.0-2.0) Prothrombin Time 9.2 SEC (9.30-11.50) L Prothromb Time International Ratio 0.9 (0.9-1.1) Activated Partial Thromboplast Time 24 SEC (23-33) Sodium Level 143 mEQ/L (135-145) Potassium Level 3.3 mEQ/L (3.4-4.9) L Chloride Level 99 mEQ/L (98-107) Carbon Dioxide Level 33 mEQ/L (20-30) H Anion Gap 11 (5-15) Blood Urea Nitrogen 7 mg/dL (7-23) Creatinine 0.8 mg/dL (0.5-0.9) Estimat Glomerular Filtration Rate > 60 mL/min (>60) Glucose Level 95 mg/dL (74-106) Lactic Acid Level 0.60 mmol/L (0.66-2.22) L Calcium Level 9.0 mg/dL (8.6-10.2) Total Bilirubin 0.3 mg/dL (0.0-1.2) Aspartate Amino Transf (AST/SGOT) 9 U/L (5-40) Alanine Aminotransferase (ALT/SGPT) 7 U/L (3-33) Alkaline Phosphatase 53 U/L (35-104) Total Creatine Kinase 70 U/L (26-140) Creatine Kinase MB < 1.5 ng/mL (< 3.8) Creatine Kinase MB Relative Index 2.1 Troponin I < 0.30 ng/mL (<=0.30) Pro-B-Type Natriuretic Peptide 297 pg/mL (0-125) H Total Protein 6.3 g/dL (6.6-8.7) L Albumin 4.1 g/dL (3.5-5.2) Globulin 2.2 g/dL Albumin/Globulin Ratio 1.8 (1.0-2.7) Lipase 31 U/L (< 60) Urine Color Pale yellow Urine Appearance Clear Urine pH 6 (4.5-8.0) Urine Specific [place] 1.010 (1.005-1.035) Urine Protein Negative (NEGATIVE) Urine Glucose (UA) Negative (NEGATIVE) Urine Ketones Negative (NEGATIVE) Urine Occult Blood Negative (NEGATIVE) Urine Nitrite Negative (NEGATIVE) Urine Bilirubin Negative (NEGATIVE) Urine Urobilinogen Normal MG/DL (0.0-1.0) Urine Leukocyte Esterase Negative (NEGATIVE) Arterial Blood pH 7.350 (7.350-7.450) Arterial Blood Partial Pressure CO2 66.9 mmHg (35.0-45.0) *H Arterial Blood Partial Pressure O2 77.9 mmHg (75.0-100.0) Arterial Blood HCO3 36.4 mmol/L (22.0-26.0) H Arterial Blood Oxygen Saturation 93.7 % (92.0-98.0) Arterial Blood Base Excess 8.7 Ike Test Positive Urine Opiates Screen Negative (NEGATIVE) Urine Barbiturates Screen Negative (NEGATIVE) Phencyclidine (PCP) Screen Negative (NEGATIVE) Urine Amphetamines Screen Negative (NEGATIVE) Urine Benzodiazepines Screen Negative (NEGATIVE) Urine Cocaine Screen Positive (NEGATIVE) H Urine Marijuana (THC) Screen Negative (NEGATIVE) Test 05/04/17 06:00 White Blood Count 9.7 K/UL (4.8-10.8) Red Blood Count 4.33 M/UL (4.20-5.40) Hemoglobin 10.2 G/DL (12.0-16.0) L Hematocrit 33.8 % (37.0-47.0) L Mean Corpuscular Volume 78 FL (80-99) L Mean Corpuscular Hemoglobin 23.5 PG (27.0-31.0) L Mean Corpuscular Hemoglobin Concent 30.2 G/DL (32.0-36.0) L Red Cell Distribution Width 20.3 % (11.6-14.8) H Platelet Count 248 K/UL (150-450) Mean Platelet Volume 6.6 FL (6.5-10.1) Neutrophils (%) (Auto) 71.1 % (45.0-75.0) Lymphocytes (%) (Auto) 19.1 % (20.0-45.0) L Monocytes (%) (Auto) 6.9 % (1.0-10.0) Eosinophils (%) (Auto) 2.1 % (0.0-3.0) Basophils (%) (Auto) 0.8 % (0.0-2.0) Sodium Level 145 mEQ/L (135-145) Potassium Level 3.1 mEQ/L (3.4-4.9) L Chloride Level 97 mEQ/L (98-107) L Carbon Dioxide Level 37 mEQ/L (20-30) H Anion Gap 11 (5-15) Blood Urea Nitrogen 6 mg/dL (7-23) L Creatinine 0.8 mg/dL (0.5-0.9) Estimat Glomerular Filtration Rate > 60 mL/min (>60) Glucose Level 129 mg/dL (74-106) H Calcium Level 9.0 mg/dL (8.6-10.2) Phosphorus Level 5.6 mg/dL (2.5-4.8) H Troponin I < 0.30 ng/mL (<=0.30) Albumin 4.0 g/dL (3.5-5.2) ANDI ZACARIAS 6, 2017 09:02
[2017-05-04] MEDS ORDERED: Pantoprazole Inj IVP SCH (10:00)
--- NOTE | 2017-05-04 11:09 | Diagnostic Imaging Report ---
Indication: Dyspnea Comparison: 05/03/17 A single view chest radiograph was obtained. Findings: Pulmonary vascularity is prominent bilaterally. The heart is enlarged. Findings appear unchanged. Impression: CHF/interstitial edema unchanged
[2017-05-04 12:00] VITALS: BP 116/69
--- NOTE | 2017-05-04 13:27 | History and Physical ---
History of Present Illness General Date patient seen: May 04, 2017 Reason for Hospitalization: Dyspnea/Respdistress Present Illness HPI 52 year old female with morbid obesity, hx of CHF, asthma presented with complaints of shortness of breath, pain to the left ear and left dental abscess. she had an episode of diarrhea and vomiting. Started to have cough and yellow sputum. Allergies: Coded Allergies: Lettuce (Verified Allergy, Severe, Anaphylaxis, 06/24/15) Uncoded Allergies: seafood (Allergy, Severe, anaphylaxic shock, 12/11/16) all seafoo Medication History Scheduled Aspirin* (Aspir 81*), 81 MG ORAL DAILY, (Reported) Atorvastatin Calcium* (Lipitor*), 80 MG ORAL BEDTIME, (Reported) Docusate Sodium* (Colace*), 100 MG ORAL DAILY, (Reported) Furosemide (Furosemide), 20 MG ORAL BID, (Reported) Ibuprofen (Ibuprofen*), 800 MG ORAL THREE TIMES A DAY, (Reported) Levalbuterol Hcl (Xopenex*), Unknown Dose HHN Q4H, (Reported) Lisinopril (Lisinopril*), 10 MG ORAL DAILY, (Reported) Lisinopril (Lisinopril*), 20 MG ORAL DAILY, (Reported) Metoprolol Tartrate* (Metoprolol Tartrate*), 25 MG ORAL EVERY 12 HOURS, ( Reported) Sertraline Hcl* (Zoloft*), 200 MG ORAL DAILY, (Reported) Sertraline Hcl* (Zoloft*), 200 MG PO DAILY, (Reported) Scheduled PRN Albuterol Sulfate (Ventolin Hfa), 1 PUFF INH EVERY 6 HOURS PRN for Shortness of Breath, (Reported) Diphenhydramine Hcl (Banophen), 50 MG PO DAILY PRN for Itching, (Reported) Diphenhydramine Hcl (Banophen), 50 MG PO for Itching, (Reported) Nitroglycerin (Nitroglycerin), 0.4 MG SL DAILY PRN for For Pain, (Reported) Ranitidine Hcl (Ranitidine Hcl), 150 MG ORAL BID PRN for GASTRITIS, (Reported) Tiotropium [place]* (Spiriva*), 1 PUFF INH DAILY PRN for Shortness of Breath, ( Reported) Tramadol Hcl (Tramadol Hcl), 50 MG ORAL BID PRN for For Pain, (Reported) Patient History Healthcare decision maker pt A&Ox3 Resuscitation status Full Code Advanced Directive on File No Past Medical/Surgical History Past Medical/Surgical History: (1) Pulmonary edema (2) Morbid obesity (3) Diabetes mellitus Review of Systems Respiratory: Reports: cough, shortness of breath Physical Exam General Appearance: morbidly obese Lines, tubes and drains: peripheral HEENT: normocephalic, atraumatic Neck: non-tender, supple Respiratory/Chest: chest wall non-tender, lungs clear Abdomen: normal bowel sounds, non tender Genitourinary/Rectal: normal genital exam Extremities: normal range of motion Skin Exam: normal pigmentation Neurologic: certified residential medication aide II-XII grossly normal Last 24 Hour Vital Signs Date Time Temp Pulse Resp B/P Pulse Ox O2 Delivery O2 Flow Rate FiO2 05/04/17 12:00 97.2 92 18 116/69 Nasal Cannula 2.0 96 05/04/17 09:12 102 20 Nasal Cannula 2.0 28 05/04/17 09:11 98 Nasal Cannula 2.0 28 05/04/17 09:10 Nasal Cannula 2.0 28 05/04/17 08:40 130/64 05/04/17 08:00 97.9 104 20 116/63 Nasal Cannula 2.0 94 05/04/17 08:00 85 05/04/17 04:00 97.7 92 20 130/64 96 Nasal Cannula 3.0 100 05/04/17 04:00 93 05/04/17 00:00 100 05/04/17 00:00 97.5 90 20 123/75 100 Nasal Cannula 3.0 100 05/03/17 22:11 98.1 84 18 153/70 100 Nasal Cannula 3.0 100 05/03/17 22:02 98.1 05/03/17 22:00 84 18 153/70 100 Nasal Cannula 3.0 05/03/17 21:09 82 20 100 Venturi Mask 05/03/17 21:08 77 18 99 Non-Rebreather 100 05/03/17 21:01 79 22 Non-Rebreather 15.0 05/03/17 21:01 98.1 79 22 156/75 97 Non-Rebreather 15.0 05/03/17 20:33 98.1 79 22 156/5 97 Non-Rebreather 15.0 Intake and Output 05/03/17 05/04/17 19:00 07:00 Intake Total 240 ml Output Total 200 ml Balance 40 ml Intake Oral 240 ml Output Urine Total 200 ml # Voids 3 Laboratory Tests Test 05/03/17 20:45 05/03/17 21:15 05/03/17 21:20 05/03/17 21:55 White Blood Count 10.1 K/UL (4.8-10.8) Red Blood Count 4.18 M/UL (4.20-5.40) L Hemoglobin 10.0 G/DL (12.0-16.0) L Hematocrit 32.9 % (37.0-47.0) L Mean Corpuscular Volume 79 FL (80-99) L Mean Corpuscular Hemoglobin 24.0 PG (27.0-31.0) L Mean Corpuscular Hemoglobin Concent 30.5 G/DL (32.0-36.0) L Red Cell Distribution Width 19.5 % (11.6-14.8) H Platelet Count 232 K/UL (150-450) Mean Platelet Volume 6.4 FL (6.5-10.1) L Neutrophils (%) (Auto) 70.5 % (45.0-75.0) Lymphocytes (%) (Auto) 22.2 % (20.0-45.0) Monocytes (%) (Auto) 4.5 % (1.0-10.0) Eosinophils (%) (Auto) 2.0 % (0.0-3.0) Basophils (%) (Auto) 0.9 % (0.0-2.0) Prothrombin Time 9.2 SEC (9.30-11.50) L Prothromb Time International Ratio 0.9 (0.9-1.1) Activated Partial Thromboplast Time 24 SEC (23-33) Sodium Level 143 mEQ/L (135-145) Potassium Level 3.3 mEQ/L (3.4-4.9) L Chloride Level 99 mEQ/L (98-107) Carbon Dioxide Level 33 mEQ/L (20-30) H Anion Gap 11 (5-15) Blood Urea Nitrogen 7 mg/dL (7-23) Creatinine 0.8 mg/dL (0.5-0.9) Estimat Glomerular Filtration Rate > 60 mL/min (>60) Glucose Level 95 mg/dL (74-106) Lactic Acid Level 0.60 mmol/L (0.66-2.22) L Calcium Level 9.0 mg/dL (8.6-10.2) Total Bilirubin 0.3 mg/dL (0.0-1.2) Aspartate Amino Transf (AST/SGOT) 9 U/L (5-40) Alanine Aminotransferase (ALT/SGPT) 7 U/L (3-33) Alkaline Phosphatase 53 U/L (35-104) Total Creatine Kinase 70 U/L (26-140) Creatine Kinase MB < 1.5 ng/mL (< 3.8) Creatine Kinase MB Relative Index 2.1 Troponin I < 0.30 ng/mL (<=0.30) Pro-B-Type Natriuretic Peptide 297 pg/mL (0-125) H Total Protein 6.3 g/dL (6.6-8.7) L Albumin 4.1 g/dL (3.5-5.2) Globulin 2.2 g/dL Albumin/Globulin Ratio 1.8 (1.0-2.7) Lipase 31 U/L (< 60) Urine Color Pale yellow Urine Appearance Clear Urine pH 6 (4.5-8.0) Urine Specific [place] 1.010 (1.005-1.035) Urine Protein Negative (NEGATIVE) Urine Glucose (UA) Negative (NEGATIVE) Urine Ketones Negative (NEGATIVE) Urine Occult Blood Negative (NEGATIVE) Urine Nitrite Negative (NEGATIVE) Urine Bilirubin Negative (NEGATIVE) Urine Urobilinogen Normal MG/DL (0.0-1.0) Urine Leukocyte Esterase Negative (NEGATIVE) Arterial Blood pH 7.350 (7.350-7.450) Arterial Blood Partial Pressure CO2 66.9 mmHg (35.0-45.0) *H Arterial Blood Partial Pressure O2 77.9 mmHg (75.0-100.0) Arterial Blood HCO3 36.4 mmol/L (22.0-26.0) H Arterial Blood Oxygen Saturation 93.7 % (92.0-98.0) Arterial Blood Base Excess 8.7 Ike Test Positive Urine Opiates Screen Negative (NEGATIVE) Urine Barbiturates Screen Negative (NEGATIVE) Phencyclidine (PCP) Screen Negative (NEGATIVE) Urine Amphetamines Screen Negative (NEGATIVE) Urine Benzodiazepines Screen Negative (NEGATIVE) Urine Cocaine Screen Positive (NEGATIVE) H Urine Marijuana (THC) Screen Negative (NEGATIVE) Test 6/6/17 06:00 White Blood Count 9.7 K/UL (4.8-10.8) Red Blood Count 4.33 M/UL (4.20-5.40) Hemoglobin 10.2 G/DL (12.0-16.0) L Hematocrit 33.8 % (37.0-47.0) L Mean Corpuscular Volume 78 FL (80-99) L Mean Corpuscular Hemoglobin 23.5 PG (27.0-31.0) L Mean Corpuscular Hemoglobin Concent 30.2 G/DL (32.0-36.0) L Red Cell Distribution Width 20.3 % (11.6-14.8) H Platelet Count 248 K/UL (150-450) Mean Platelet Volume 6.6 FL (6.5-10.1) Neutrophils (%) (Auto) 71.1 % (45.0-75.0) Lymphocytes (%) (Auto) 19.1 % (20.0-45.0) L Monocytes (%) (Auto) 6.9 % (1.0-10.0) Eosinophils (%) (Auto) 2.1 % (0.0-3.0) Basophils (%) (Auto) 0.8 % (0.0-2.0) Sodium Level 145 mEQ/L (135-145) Potassium Level 3.1 mEQ/L (3.4-4.9) L Chloride Level 97 mEQ/L (98-107) L Carbon Dioxide Level 37 mEQ/L (20-30) H Anion Gap 11 (5-15) Blood Urea Nitrogen 6 mg/dL (7-23) L Creatinine 0.8 mg/dL (0.5-0.9) Estimat Glomerular Filtration Rate > 60 mL/min (>60) Glucose Level 129 mg/dL (74-106) H Calcium Level 9.0 mg/dL (8.6-10.2) Phosphorus Level 5.6 mg/dL (2.5-4.8) H Troponin I < 0.30 ng/mL (<=0.30) Albumin 4.0 g/dL (3.5-5.2) Height (Feet): 5 Height (Inches): 4.00 Weight (Pounds): 312 Medications Current Medications Medications (Trade) Dose Ordered Sig/May Route PRN Reason Start Time Stop Time Status Last Admin Dose Admin Acetaminophen (Tylenol) 650 mg Q4H PRN ORAL Fever 05/03/17 22:00 06/02/17 21:59 Albuterol/ Ipratropium (DuoNeb 0.5-3(2.5)mg/3ml) 3 ml EVERY 4 HOURS PRN HHN Shortness of Breath 05/03/17 22:00 05/08/17 21:59 Aspirin (Ecotrin) 81 mg DAILY ORAL 05/04/17 09:00 06/03/17 08:59 05/04/17 08:39 Atorvastatin Calcium (Lipitor) 80 mg BEDTIME ORAL 05/04/17 21:00 06/03/17 20:59 Dextrose (Dextrose 50%) STAT PRN IV Hypoglycemia 05/03/17 22:00 06/02/17 21:59 Furosemide (Lasix) 40 mg BID IV 05/04/17 18:00 06/03/17 17:59 Heparin Sodium (Porcine) (Heparin 5000 units/ml) 5,000 units EVERY 12 HOURS SUBQ 05/04/17 09:00 06/03/17 08:59 05/04/17 08:41 Lisinopril (Zestril) 10 mg DAILY ORAL 05/04/17 09:00 06/03/17 08:59 05/04/17 08:40 Morphine Sulfate (Morphine Sulfate) 4 mg Q4H PRN IVP For Pain 05/04/17 07:30 05/11/17 07:29 05/04/17 08:12 Ondansetron HCl (Zofran) 4 mg Q6H PRN IVP Nausea & Vomiting 05/03/17 22:00 06/02/17 21:59 Pantoprazole (Protonix) 40 mg DAILY IVP 05/04/17 10:00 06/03/17 09:59 05/04/17 09:47 Polyethylene Glycol (Miralax) 17 gm DAILYPRN PRN ORAL Constipation 05/03/17 22:00 06/02/17 21:59 Potassium Chloride (K-Dur) 40 meq TWICE A DAY ORAL 05/04/17 10:00 05/05/17 09:59 05/04/17 09:48 Sertraline HCl (Zoloft) 200 mg DAILY ORAL 05/04/17 09:00 06/03/17 08:59 05/04/17 08:39 Temazepam (Restoril) 15 mg HSPRN PRN ORAL Insomnia 05/03/17 22:00 05/10/17 21:59 Assessment/Plan Problem List: (1) Respiratory failure, acute ICD Codes: J96.00 - Acute respiratory failure, unspecified whether with hypoxia or hypercapnia SNOMED: 06126687 (2) Acute exacerbation of CHF (congestive heart failure) ICD Codes: I50.9 - Heart failure, unspecified SNOMED: 72941916 (3) Purulent bronchitis ICD Codes: J41.1 - Mucopurulent chronic bronchitis SNOMED: 78426359 (4) Diabetes mellitus ICD Codes: E11.9 - Type 2 diabetes mellitus without complications SNOMED: 57186238 (5) Dental abscess ICD Codes: K04.7 - Periapical abscess without sinus SNOMED: 183987497 Assessment/Plan respiratory treatment sputum for c/s steroids diuretics cxr bnp in am ID evaluation of dental abscess. LAMIN NEWTON May 04, 2017 13:27
--- NOTE | 2017-05-04 14:02 | Diagnostic Imaging Report ---
APPROVED REPORT CPT Code: 05261 Present Symptoms Shortness of breath BILATERAL: Imaging reveals a patent deep venous system bilaterally. There is no evidence of thrombus within the femoral, popliteal or tibial segments. The greater saphenous veins are also within normal limits. Doppler indicates normal spontaneous flow within these segments.
--- NOTE | 2017-05-04 14:47 | Cardiology Report ---
APPROVED REPORT EKG Measurement Heart [id number] Normal sinus rhythm Nonspecific T wave abnormality Abnormal ECG
--- NOTE | 2017-05-04 14:47 | Cardiology Report ---
APPROVED REPORT EXAM: Two-dimensional and M-mode echocardiogram with Doppler and color Doppler. INDICATION Left ventricular function M-Mode DIMENSIONS IVSd1.7 (0.7-1.1cm)Left Atrium (MM)5.0 (1.6-4.0cm) LVDd6.0 (3.5-5.6cm)Aortic Cusp Exc.2.0 (1.5-2.0cm) IVSs2.5 cm LVDs3.7 (2.5-4.0cm) PWs1.8 cm Technically difficult study due to poor acoustic windows. Normal left ventricular chamber size, systolic function and wall motion. Left ventricular ejection fraction estimated to be 55-60 %. Mild left ventricular hypertrophy. No evidence of pericardial fat or effusion. Right cardiac chamber sizes are within normal limits. Mild left atrial enlargement by 2D. Focal aortic valve sclerosis with adequate cusp excursion Thickened mitral valve leaflets with normal excursion. Mitral annulus and aortic root calcification. Pulmonic valve not well visualized. Normal tricuspid valve structure. IVC is normal in size with physiologic collapse. A color flow and spectral Doppler study was performed and revealed: No aortic regurgitation. No mitral regurgitation. Normal left ventricular diastolic function. No tricuspid regurgitation.
--- NOTE | 2017-05-04 14:48 | Diagnostic Imaging Report ---
Indication: Dyspnea Comparison: 03/20/17 A single view chest radiograph was obtained. Findings: Patchy airspace and interstitial opacities are present with prominent vascularity and cardiomegaly. Findings consistent with CHF appears slightly worse than the last study. Impression: Interstitial edema/CHF suspected
--- NOTE | 2017-05-04 15:37 | GI Initial Consult Note ---
History of Present Illness General Date patient seen: May 04, 2017 Time patient seen: 15:27 Reason for Hospitalization: Dyspnea/Respdistress Referring physician: LAMIN OBRIEN Reason for Consultation: DIARRHEA/ANEMIA Present Illness HPI Patient presents with complaints of shortness of breath Patient reports pain to the left ear left dental abscess Diffuse body pain requesting pain medication upon arrival Denies any back or flank pain however Patient did feel short of breath and does not feel that the water pills or removing all the fluid off her legs Denies any vomiting however she has had diarrhea Denies any dysuria frequency GI CONSULT. HPI as noted above. GI consulted for eps of diarrhea and anemia. Pt seen on floor, awake A&Ox4 NAD. Denies any pain at this moment, stated she had a few eps of diarrhea last week prior to admission. Denies any N/V/D at this time. She presents today anemia and previous c/o of diarrhea. Labs show unremarkable lipase. Utox shows positive for cocaine. The patient denies any history of endoscopic procedures. Home Meds Reported Medications Levalbuterol Hcl (XOPENEX*) 0.63 Mg/3 Ml Vial.neb, HHN Q4H for 30 Days, MG 0 Refills 05/03/17 Metoprolol Tartrate* (METOPROLOL TARTRATE*) 25 Mg Tablet, 25 MG ORAL EVERY 12 HOURS, TAB 05/03/17 Diphenhydramine Hcl (BANOPHEN) 50 Mg Capsule, 50 MG PO Y for Itching, CAP 05/03/17 Lisinopril (LISINOPRIL*) 20 Mg Tablet, 20 MG ORAL DAILY, TAB 05/03/17 Tramadol Hcl (TRAMADOL HCL) 100 Mg Tab.er.24h, 50 MG ORAL BID Y for For Pain, TAB 05/03/17 Sertraline Hcl* (ZOLOFT*) 100 Mg Tablet, 200 MG PO DAILY, TAB 05/03/17 Tiotropium [place]* (SPIRIVA*) 18 Mcg Cap.w.dev, 1 PUFF INH DAILY Y for Shortness of Breath, EA 03/17/17 Albuterol Sulfate (VENTOLIN HFA) 18 Gm Hfa.aer.ad, 1 PUFF INH EVERY 6 HOURS Y for Shortness of Breath, #18 GM 0 Refills 03/17/17 Nitroglycerin (NITROGLYCERIN) 0.4 Mg Tab.subl, 0.4 MG SL DAILY Y for For Pain, TAB 03/17/17 Furosemide (Furosemide) 80 Mg Tablet, 20 MG ORAL BID, TAB 03/17/17 Diphenhydramine Hcl (BANOPHEN) 25 Mg Capsule, 50 MG PO DAILY Y for Itching, CAP 03/17/17 Ibuprofen (IBUPROFEN*) 200 Mg Tablet, 800 MG ORAL THREE TIMES A DAY, #30 TAB 0 Refills 12/09/16 Docusate Sodium* (COLACE*) 100 Mg Capsule, 100 MG ORAL DAILY, CAP 04/24/16 Aspirin* (ASPIR 81*) 81 Mg Tablet.dr, 81 MG ORAL DAILY, TAB 05/22/14 Atorvastatin Calcium* (LIPITOR*) 40 Mg Tablet, 80 MG ORAL BEDTIME, #30 TAB 0 Refills 01/01/14 Sertraline Hcl* (ZOLOFT*) 100 Mg Tablet, 200 MG ORAL DAILY, TAB 01/01/14 Lisinopril (LISINOPRIL*) 5 Mg Tablet, 10 MG ORAL DAILY, TAB 01/01/14 Ranitidine Hcl (RANITIDINE HCL) 150 Mg Capsule, 150 MG ORAL BID Y for GASTRITIS , CAP 01/01/14 Med list reviewed/reconciled: Yes Allergies: Coded Allergies: Lettuce (Verified Allergy, Severe, Anaphylaxis, 06/24/15) Uncoded Allergies: seafood (Allergy, Severe, anaphylaxic shock, 12/11/16) all seafoo Patient History History Provided By: Patient, Medical Record PMH Narrative Hx Hypertension: Yes Hx Pacemaker: No Hx Asthma: Yes Hx COPD: Yes Hx Diabetes: No Hx Cancer: No Hx Gastrointestinal Problems: Yes Hx Dialysis: No Hx Neurological Problems: Yes Hx Cerebrovascular Accident: No Hx Seizures: No Hx Dizziness: Yes Hx Headaches: Yes Review of Systems All Other Systems: negative except mentioned in HPI Physical Exam Vital Signs Date Time Temp Pulse Resp B/P Pulse Ox O2 Delivery O2 Flow Rate FiO2 05/03/17 20:33 98.1 79 22 156/5 97 Non-Rebreather 15.0 05/03/17 21:08 100 Sp02 EP Interpretation: reviewed Labs Laboratory Tests Test 05/03/17 20:45 05/03/17 21:15 05/03/17 21:20 05/03/17 21:55 White Blood Count 10.1 K/UL (4.8-10.8) Red Blood Count 4.18 M/UL (4.20-5.40) L Hemoglobin 10.0 G/DL (12.0-16.0) L Hematocrit 32.9 % (37.0-47.0) L Mean Corpuscular Volume 79 FL (80-99) L Mean Corpuscular Hemoglobin 24.0 PG (27.0-31.0) L Mean Corpuscular Hemoglobin Concent 30.5 G/DL (32.0-36.0) L Red Cell Distribution Width 19.5 % (11.6-14.8) H Platelet Count 232 K/UL (150-450) Mean Platelet Volume 6.4 FL (6.5-10.1) L Neutrophils (%) (Auto) 70.5 % (45.0-75.0) Lymphocytes (%) (Auto) 22.2 % (20.0-45.0) Monocytes (%) (Auto) 4.5 % (1.0-10.0) Eosinophils (%) (Auto) 2.0 % (0.0-3.0) Basophils (%) (Auto) 0.9 % (0.0-2.0) Prothrombin Time 9.2 SEC (9.30-11.50) L Prothromb Time International Ratio 0.9 (0.9-1.1) Activated Partial Thromboplast Time 24 SEC (23-33) Sodium Level 143 mEQ/L (135-145) Potassium Level 3.3 mEQ/L (3.4-4.9) L Chloride Level 99 mEQ/L (98-107) Carbon Dioxide Level 33 mEQ/L (20-30) H Anion Gap 11 (5-15) Blood Urea Nitrogen 7 mg/dL (7-23) Creatinine 0.8 mg/dL (0.5-0.9) Estimat Glomerular Filtration Rate > 60 mL/min (>60) Glucose Level 95 mg/dL (74-106) Lactic Acid Level 0.60 mmol/L (0.66-2.22) L Calcium Level 9.0 mg/dL (8.6-10.2) Total Bilirubin 0.3 mg/dL (0.0-1.2) Aspartate Amino Transf (AST/SGOT) 9 U/L (5-40) Alanine Aminotransferase (ALT/SGPT) 7 U/L (3-33) Alkaline Phosphatase 53 U/L (35-104) Total Creatine Kinase 70 U/L (26-140) Creatine Kinase MB < 1.5 ng/mL (< 3.8) Creatine Kinase MB Relative Index 2.1 Troponin I < 0.30 ng/mL (<=0.30) Pro-B-Type Natriuretic Peptide 297 pg/mL (0-125) H Total Protein 6.3 g/dL (6.6-8.7) L Albumin 4.1 g/dL (3.5-5.2) Globulin 2.2 g/dL Albumin/Globulin Ratio 1.8 (1.0-2.7) Lipase 31 U/L (< 60) Urine Color Pale yellow Urine Appearance Clear Urine pH 6 (4.5-8.0) Urine Specific [place] 1.010 (1.005-1.035) Urine Protein Negative (NEGATIVE) Urine Glucose (UA) Negative (NEGATIVE) Urine Ketones Negative (NEGATIVE) Urine Occult Blood Negative (NEGATIVE) Urine Nitrite Negative (NEGATIVE) Urine Bilirubin Negative (NEGATIVE) Urine Urobilinogen Normal MG/DL (0.0-1.0) Urine Leukocyte Esterase Negative (NEGATIVE) Arterial Blood pH 7.350 (7.350-7.450) Arterial Blood Partial Pressure CO2 66.9 mmHg (35.0-45.0) *H Arterial Blood Partial Pressure O2 77.9 mmHg (75.0-100.0) Arterial Blood HCO3 36.4 mmol/L (22.0-26.0) H Arterial Blood Oxygen Saturation 93.7 % (92.0-98.0) Arterial Blood Base Excess 8.7 Ike Test Positive Urine Opiates Screen Negative (NEGATIVE) Urine Barbiturates Screen Negative (NEGATIVE) Phencyclidine (PCP) Screen Negative (NEGATIVE) Urine Amphetamines Screen Negative (NEGATIVE) Urine Benzodiazepines Screen Negative (NEGATIVE) Urine Cocaine Screen Positive (NEGATIVE) H Urine Marijuana (THC) Screen Negative (NEGATIVE) Test 05/04/17 06:00 White Blood Count 9.7 K/UL (4.8-10.8) Red Blood Count 4.33 M/UL (4.20-5.40) Hemoglobin 10.2 G/DL (12.0-16.0) L Hematocrit 33.8 % (37.0-47.0) L Mean Corpuscular Volume 78 FL (80-99) L Mean Corpuscular Hemoglobin 23.5 PG (27.0-31.0) L Mean Corpuscular Hemoglobin Concent 30.2 G/DL (32.0-36.0) L Red Cell Distribution Width 20.3 % (11.6-14.8) H Platelet Count 248 K/UL (150-450) Mean Platelet Volume 6.6 FL (6.5-10.1) Neutrophils (%) (Auto) 71.1 % (45.0-75.0) Lymphocytes (%) (Auto) 19.1 % (20.0-45.0) L Monocytes (%) (Auto) 6.9 % (1.0-10.0) Eosinophils (%) (Auto) 2.1 % (0.0-3.0) Basophils (%) (Auto) 0.8 % (0.0-2.0) Sodium Level 145 mEQ/L (135-145) Potassium Level 3.1 mEQ/L (3.4-4.9) L Chloride Level 97 mEQ/L (98-107) L Carbon Dioxide Level 37 mEQ/L (20-30) H Anion Gap 11 (5-15) Blood Urea Nitrogen 6 mg/dL (7-23) L Creatinine 0.8 mg/dL (0.5-0.9) Estimat Glomerular Filtration Rate > 60 mL/min (>60) Glucose Level 129 mg/dL (74-106) H Calcium Level 9.0 mg/dL (8.6-10.2) Phosphorus Level 5.6 mg/dL (2.5-4.8) H Troponin I < 0.30 ng/mL (<=0.30) Albumin 4.0 g/dL (3.5-5.2) General Appearance: no apparent distress, alert, obese Head: normocephalic Neck: supple Respiratory: no respiratory distress, other - 2LNC Cardiovascular: normal rate Gastrointestinal: normal inspection, non tender, soft, normal bowel sounds Rectal: deferred Genitourinary: no CVA tenderness Musculoskeletal: back normal Neurologic: normal inspection, alert, oriented x3, responsive Psychiatric: normal inspection, judgement/insight normal, memory normal Skin: normal inspection, normal color, no rash, warm/dry Lymphatic: normal inspection, no adenopathy Current Medications Current Medications Medications (Trade) Dose Ordered Sig/May Route PRN Reason Start Time Stop Time Status Last Admin Dose Admin Acetaminophen (Tylenol) 650 mg Q4H PRN ORAL Fever 05/03/17 22:00 06/02/17 21:59 Albuterol/ Ipratropium (DuoNeb 0.5-3(2.5)mg/3ml) 3 ml EVERY 4 HOURS PRN HHN Shortness of Breath 05/03/17 22:00 05/08/17 21:59 Aspirin (Ecotrin) 81 mg DAILY ORAL 05/04/17 09:00 06/03/17 08:59 05/04/17 08:39 Atorvastatin Calcium (Lipitor) 80 mg BEDTIME ORAL 05/04/17 21:00 06/03/17 20:59 Dextrose (Dextrose 50%) STAT PRN IV Hypoglycemia 05/03/17 22:00 06/02/17 21:59 Furosemide (Lasix) 40 mg BID IV 05/04/17 18:00 06/03/17 17:59 Heparin Sodium (Porcine) (Heparin 5000 units/ml) 5,000 units EVERY 12 HOURS SUBQ 05/04/17 09:00 06/03/17 08:59 05/04/17 08:41 Lisinopril (Zestril) 10 mg DAILY ORAL 05/04/17 09:00 06/03/17 08:59 05/04/17 08:40 Morphine Sulfate (Morphine Sulfate) 4 mg Q4H PRN IVP For Pain 05/04/17 07:30 05/11/17 07:29 05/04/17 14:13 Ondansetron HCl (Zofran) 4 mg Q6H PRN IVP Nausea & Vomiting 05/03/17 22:00 06/02/17 21:59 Pantoprazole (Protonix) 40 mg DAILY IVP 05/04/17 10:00 06/03/17 09:59 05/04/17 09:47 Polyethylene Glycol (Miralax) 17 gm DAILYPRN PRN ORAL Constipation 05/03/17 22:00 06/02/17 21:59 Potassium Chloride (K-Dur) 40 meq TWICE A DAY ORAL 05/04/17 10:00 05/05/17 09:59 05/04/17 09:48 Sertraline HCl (Zoloft) 200 mg DAILY ORAL 05/04/17 09:00 06/03/17 08:59 05/04/17 08:39 Temazepam (Restoril) 15 mg HSPRN PRN ORAL Insomnia 05/03/17 22:00 05/10/17 21:59 GI: Plan Problems: (1) Anemia (2) Diarrhea (3) Acute exacerbation of CHF (congestive heart failure) (4) Pulmonary edema (5) Morbid obesity (6) Diabetes mellitus (7) Cocaine abuse (8) Morbid obesity Plan Troponin negative x 2 lipase WNL utox positive for cocaine Pt to be scheduled for EGD/colonoscopy this 05/06/17 given anemia. - CLD tomorrow + prep - Plavix must be held 48 hours prior to endoscopic procedure. anemia work up OB stool uncollected collect stool for cdiff if patient continues to have diarrhea dc ppi r/o cdiff, change to H2B cardiac diet fu labs Discussed with Dr. Stanton. Thank you for referring this patient, we will follow. Ludivina Fish N.P. May 04, 2017 15:37
[2017-05-04 16:00] VITALS: BP 127/68
--- NOTE | 2017-05-04 17:45 | Consultation ---
DATE OF CONSULTATION: 05/04/2017 CARDIOLOGY CONSULTATION REFERRING PHYSICIAN: Win Ro M.D. REASON FOR REFERRAL: Chest pain and shortness of breath. HISTORY OF PRESENT ILLNESS: This is a 52-year-old female, who is known to me from prior evaluation hospitalization. The patient presented to the hospital because of acute shortness of breath, nausea, vomiting, diarrhea, and sharp pains in the chest. These sensations have been present for the past three or four days, although his diarrhea started to subside two days ago. The other sensations been present. She also has some pain in the lower jaw area from the mouth that she thinks is a dental abscess and has been preventing her from using her CPAP. She has shortness of breath on exertion. There is no episodes of PND. She uses three pillows. She really sleeps in a chair. There is no orthopnea. She does not have any dizziness or lightheadedness on standing. No heart pounding or palpitations. She occasionally does walk, although in the past few days that has not been an issue. She has cough and sputum production described as brown sputum, but not a lot. PAST MEDICAL HISTORY: Positive for history of chronic obstructive pulmonary disease, diastolic dysfunction failure, obesity, sleep apnea, tobacco use, hyperlipidemia, uterine fibroids, and renal failure. MEDICATIONS: Her medications at home include aspirin 81 mg, Lipitor 80 mg, Q-SAGE, Benadryl, Colace, Lasix 20 mg daily, ibuprofen 800 mg, Xopenex, lisinopril 20 mg, metoprolol 50 mg a day, Zantac 150 milligrams and Zoloft as well as tramadol. ALLERGIES: She has no known drug allergies. SOCIAL HISTORY: She smokes one pack a day and social alcohol. No drugs. She has a care provider. REVIEW OF SYSTEMS: Gastrointestinal: As mentioned in history of present illness, there is no bloody or black stools or bloody vomiting. Genitourinary: Some discomfort on urination. Pulmonary: As mentioned in history of present illness, positive coughing and sputum production. Constitutional: Some chills, otherwise negative. Neurologic: She appears to be drowsy. She states that it is because she has not had any sleep at home. PHYSICAL EXAMINATION: GENERAL: The patient is a morbidly obese female. She drifts to sleep very easily because she received some morphine injection because of her tooth pain apparently, but she is easily arousable. NECK: Her neck is supple and short. LUNGS: Appear to be relatively clear to auscultation and percussion. CARDIAC: S1 is normal. S2 is normal. Regular rate and rhythm. No heaves, thrills, or gallops noted. ABDOMEN: Soft and obese. Positive bowel sounds. EXTREMITIES: There is no edema, clubbing, or cyanosis. NEUROLOGIC: She is a drowsy, but arousable and responsive. LABORATORY AND DIAGNOSTIC DATA: White count of 9.7, hemoglobin 10.2, and platelet count of 248,000. A pH is 7.35, pCO2 of 67, pO2 of 78 and bicarbonate of 36, compared to prior levels pO2 is now up from 59 to 78 at the present time. Laboratories, sodium is 145, potassium 3.1, chloride 97, bicarbonate 37, BUN of 6, creatinine 0.8, and glucose of 129. Lactic acid of 0.6. Phosphorus of 5.6. Two sets of cardiac enzymes are negative so far. Her BNP was only 297, proBNP yesterday at the time of her admission. Her coagulations, INR 0.9 and of 24. Toxicology screen positive for cocaine. Urinalysis is unremarkable. Chest x-ray was not performed during this hospitalization. EKG shows sinus rhythm with T-wave inversions in V1, V2, V3, V4, and V5 as well V6. Telemetry data shows sinus rhythm and direct comparison with her prior EKGs, the T-wave inversions are not new and have been present on old EKGs, unchanged since August 2014. ASSESSMENT AND PLAN: 1. Chronic obstructive pulmonary disease exacerbation. 2. Chest pain. chronically abnormal electrocardiogram. 3. History of hypertension. 4. Obesity. 5. Obstructive sleep apnea with inability to use CPAP due to lower jaw pain. 6. Jaw pain, odontogenic. 7. Somnolence due to sleep apnea and pain medication. Dr. Ro, this patient was seen in cardiac consultation. The patient's cardiac enzymes are negative. EKG is unchanged since 2013. We would continue treatment for pulmonary issues. Potassium supplementation. Hold today's dose of Lasix and she has had recent diarrhea, resume tomorrow. A dental evaluation. We will start her on some antacids for the time being for the pain that she is experiencing in her stomach may be the dose of NSAIDs for jaw pain. Tyler Batista M.D. DR: KAYLYNN JOB#: [id number] CC:
[2017-05-04 20:00] VITALS: BP 127/67
[2017-05-04] MEDS ORDERED: Atorvastatin 80mg tab ORAL SCH (21:00)
[2017-05-04] MEDS: Famotidine 20 MG/ 2ML VIAL IVP SCH (21:00)
[2017-05-05] VITALS (8 sets, daily range): BP systolic 117–152; BP diastolic 59–75
[2017-05-05] MEDS: Morphine Sulfate 4mg/ml Inj IVP PRN ×3 (02:47→22:05)
[2017-05-05 08:43] LABS: BASOPHILS % (AUTO) 0.9 % (0.0-2.0); EOSINOPHILS % (AUTO) 1.3 % (0.0-3.0); LYMPHOCYTES % (AUTO) 10.6 % (20.0-45.0); MEAN CORPUSCULAR HEMOGLOBIN 22.8 PG (27.0-31.0); MEAN CORPUSCULAR HGB CONC 28.6 G/DL (32.0-36.0); MEAN CORPUSCULAR VOLUME 80 FL (80-99); MEAN PLATELET VOLUME 5.8 FL (6.5-10.1); MONOCYTES % (AUTO) 3.8 % (1.0-10.0); NEUTROPHILS % (AUTO) 83.5 % (45.0-75.0); PLATELET COUNT 251 K/UL (150-450); RED BLOOD COUNT 4.18 M/UL (4.20-5.40); RED CELL DISTRIBUTION WIDTH 20.5 % (11.6-14.8); WHITE BLOOD COUNT 9.8 K/UL (4.8-10.8)
[2017-05-05] MEDS: Sertraline 100mg tab ORAL SCH (08:54)
[2017-05-05 08:55] LABS: TROPONIN I < 0.30 ng/mL (<=0.30)
[2017-05-05 08:58] LABS: ALANINE AMINOTRANSFERASE 6 U/L (3-33); ALBUMIN/GLOBULIN RATIO 1.3 (1.0-2.7); ANION GAP 5 (5-15); ASPARTATE AMINO TRANSFERASE 8 U/L (5-40); CALCIUM 9.2 mg/dL (8.6-10.2); CARBON DIOXIDE 38 mEQ/L (20-30); CHLORIDE 95 mEQ/L (98-107); CREATININE 0.8 mg/dL (0.5-0.9); GLOMERULAR FILTRATION RATE > 60 mL/min (>60); HEMOLYSIS 1; POTASSIUM 3.8 mEQ/L (3.4-4.9); SODIUM 138 mEQ/L (135-145)
[2017-05-05] MEDS: Heparin 5000 units/ml inj SUBQ SCH ×2 (08:58→21:00)
[2017-05-05] MEDS: Aspirin EC 81mg tab ORAL SCH (08:58)
[2017-05-05] MEDS: Famotidine 20 MG/ 2ML VIAL IVP SCH ×2 (08:59→21:52)
[2017-05-05] MEDS: Lisinopril 2.5mg tab ORAL SCH (09:12)
--- NOTE | 2017-05-05 10:33 | GI Progress Note ---
Assessment/Plan Problems: (1) Anemia ICD Codes: D64.9 - Anemia, unspecified SNOMED: 110338603 (2) Morbid obesity ICD Codes: E66.01 - Morbid obesity SNOMED: 680856591 (3) Diarrhea ICD Codes: R19.7 - Diarrhea, unspecified SNOMED: 01175500 (4) Cocaine abuse ICD Codes: F14.10 - Cocaine abuse, uncomplicated SNOMED: 26076738, 301130837 (5) Abdominal pain ICD Codes: R10.9 - Abdominal pain SNOMED: 62603163 Status: stable Status Narrative Discussed with Dr. Stanton. Assessment/Plan Troponin negative x 3 lipase WNL utox positive for cocaine Pt to be scheduled for EGD/colonoscopy tomorrow. - CLD + prep, NPO @ [facility]. - Hold all blood thinners. anemia work up OB stool uncollected collect stool for cdiff if patient continues to have diarrhea H2B fu labs Subjective Gastrointestinal/Abdominal: Reports: no symptoms Objective Last 24 Hour Vital Signs Date Time Temp Pulse Resp B/P Pulse Ox O2 Delivery O2 Flow Rate FiO2 05/05/17 09:12 138/63 05/05/17 08:13 97.7 108 20 138/63 90 Nasal Cannula 2.0 05/05/17 07:44 Nasal Cannula 2.0 28 05/05/17 07:44 99 Nasal Cannula 2.0 28 05/05/17 07:44 99 20 Nasal Cannula 2.0 28 05/05/17 04:00 96 05/05/17 04:00 97.7 92 22 117/59 93 Nasal Cannula 05/05/17 00:00 97.7 91 20 126/62 98 Nasal Cannula 2.0 05/05/17 00:00 89 05/04/17 20:00 90 05/04/17 20:00 97.9 84 22 127/67 95 Nasal Cannula 2.0 05/04/17 19:54 Nasal Cannula 2.0 28 05/04/17 19:53 98 Nasal Cannula 2.0 28 05/04/17 19:53 98 20 Nasal Cannula 2.0 28 05/04/17 16:00 98.2 89 19 127/68 Nasal Cannula 2.0 95 05/04/17 12:00 97.2 92 18 116/69 Nasal Cannula 2.0 96 Intake and Output 05/04/17 05/05/17 19:00 07:00 Intake Total 1200 ml 300 ml Output Total 900 ml Balance 300 ml 300 ml Intake Oral 1200 ml 300 ml Output Urine Total 900 ml # Voids 3 3 Laboratory Tests Test 05/05/17 08:05 White Blood Count 9.8 K/UL (4.8-10.8) Red Blood Count 4.18 M/UL (4.20-5.40) L Hemoglobin 9.5 G/DL (12.0-16.0) L Hematocrit 33.3 % (37.0-47.0) L Mean Corpuscular Volume 80 FL (80-99) Mean Corpuscular Hemoglobin 22.8 PG (27.0-31.0) L Mean Corpuscular Hemoglobin Concent 28.6 G/DL (32.0-36.0) L Red Cell Distribution Width 20.5 % (11.6-14.8) H Platelet Count 251 K/UL (150-450) Mean Platelet Volume 5.8 FL (6.5-10.1) L Neutrophils (%) (Auto) 83.5 % (45.0-75.0) H Lymphocytes (%) (Auto) 10.6 % (20.0-45.0) L Monocytes (%) (Auto) 3.8 % (1.0-10.0) Eosinophils (%) (Auto) 1.3 % (0.0-3.0) Basophils (%) (Auto) 0.9 % (0.0-2.0) Sodium Level 138 mEQ/L (135-145) Potassium Level 3.8 mEQ/L (3.4-4.9) Chloride Level 95 mEQ/L (98-107) L Carbon Dioxide Level 38 mEQ/L (20-30) H Anion Gap 5 (5-15) Blood Urea Nitrogen 9 mg/dL (7-23) Creatinine 0.8 mg/dL (0.5-0.9) Estimat Glomerular Filtration Rate > 60 mL/min (>60) Glucose Level 140 mg/dL (74-106) H Calcium Level 9.2 mg/dL (8.6-10.2) Total Bilirubin 0.3 mg/dL (0.0-1.2) Aspartate Amino Transf (AST/SGOT) 8 U/L (5-40) Alanine Aminotransferase (ALT/SGPT) 6 U/L (3-33) Alkaline Phosphatase 57 U/L (35-104) Troponin I < 0.30 ng/mL (<=0.30) Pro-B-Type Natriuretic Peptide 118 pg/mL (0-125) Total Protein 7.0 g/dL (6.6-8.7) Albumin 4.0 g/dL (3.5-5.2) Globulin 3.0 g/dL Albumin/Globulin Ratio 1.3 (1.0-2.7) Height (Feet): 5 Height (Inches): 4.00 Weight (Pounds): 312 General Appearance: no apparent distress, alert, morbidly obese Cardiovascular: normal rate Respiratory/Chest: normal breath sounds, other - 2LNC Abdominal Exam: normal bowel sounds, non tender, soft Ludivina Fish N.P. May 05, 2017 10:32
--- NOTE | 2017-05-05 12:47 | Pulmonology Progress Note ---
Assessment/Plan Problems: (1) Respiratory failure, acute (2) Acute exacerbation of CHF (congestive heart failure) (3) Purulent bronchitis (4) Diabetes mellitus (5) Dental abscess Assessment/Plan continue abx ID to see f/u cardio recommendations med/surg dc in on or two days Subjective ROS Limited/Unobtainable: No Constitutional: Reports: no symptoms HEENT: Repors: no symptoms Respiratory: Reports: no symptoms Allergies: Coded Allergies: IODINE (Verified Allergy, Severe, Anaphylaxis, 05/05/17) Lettuce (Verified Allergy, Severe, Anaphylaxis, 06/24/15) SHELLFISH DERIVED (Verified Allergy, Severe, Anaphylaxis, 05/05/17) Objective Last 24 Hour Vital Signs Date Time Temp Pulse Resp B/P Pulse Ox O2 Delivery O2 Flow Rate FiO2 05/05/17 11:55 98.8 97 20 121/74 95 Nasal Cannula 2.0 05/05/17 09:12 138/63 05/05/17 08:13 97.7 108 20 138/63 90 Nasal Cannula 2.0 05/05/17 07:44 Nasal Cannula 2.0 28 05/05/17 07:44 99 Nasal Cannula 2.0 28 05/05/17 07:44 99 20 Nasal Cannula 2.0 28 05/05/17 04:00 96 05/05/17 04:00 97.7 92 22 117/59 93 Nasal Cannula 05/05/17 00:00 97.7 91 20 126/62 98 Nasal Cannula 2.0 05/05/17 00:00 89 05/04/17 20:00 90 05/04/17 20:00 97.9 84 22 127/67 95 Nasal Cannula 2.0 05/04/17 19:54 Nasal Cannula 2.0 28 05/04/17 19:53 98 Nasal Cannula 2.0 28 05/04/17 19:53 98 20 Nasal Cannula 2.0 28 05/04/17 16:00 98.2 89 19 127/68 Nasal Cannula 2.0 95 Intake and Output 05/04/17 05/05/17 19:00 07:00 Intake Total 1200 ml 300 ml Output Total 900 ml Balance 300 ml 300 ml Intake Oral 1200 ml 300 ml Output Urine Total 900 ml # Voids 3 3 General Appearance: WD/WN HEENT: normocephalic, atraumatic Respiratory/Chest: chest wall non-tender, lungs clear Cardiovascular: normal peripheral pulses, normal rate Abdomen: normal bowel sounds, soft, non tender Genitourinary: normal external genitalia Extremities: no cyanosis Neurologic/Psychiatric: no motor/sensory deficits Lymphatic: no neck adenopathy Musculoskeletal: no effusion Microbiology Date/Time Source Procedure Growth Status 05/03/17 20:50 Blood Blood Culture - Preliminary NO GROWTH AFTER 24 HOURS Resulted 05/03/17 20:45 Blood Blood Culture - Preliminary NO GROWTH AFTER 24 HOURS Resulted Laboratory Tests 05/05/17 08:05: White Blood Count 9.8, Red Blood Count 4.18L, Hemoglobin 9.5L, Hematocrit 33.3L , Mean Corpuscular Volume 80, Mean Corpuscular Hemoglobin 22.8L, Mean Corpuscular Hemoglobin Concent 28.6L, Red Cell Distribution Width 20.5H, Platelet Count 251, Mean Platelet Volume 5.8L, Neutrophils (%) (Auto) 83.5H, Lymphocytes (%) (Auto) 10.6L, Monocytes (%) (Auto) 3.8, Eosinophils (%) (Auto) 1.3, Basophils (%) (Auto) 0.9, Sodium Level 138, Potassium Level 3.8, Chloride Level 95L, Carbon Dioxide Level 38H, Anion Gap 5, Blood Urea Nitrogen 9, Creatinine 0.8, Estimat Glomerular Filtration Rate > 60, Glucose Level 140H, Calcium Level 9.2, Total Bilirubin 0.3, Aspartate Amino Transf (AST/SGOT) 8, Alanine Aminotransferase (ALT/SGPT) 6, Alkaline Phosphatase 57, Troponin I < 0.30, Pro-B-Type Natriuretic Peptide 118, Total Protein 7.0, Albumin 4.0, Globulin 3.0, Albumin/Globulin Ratio 1.3 Current Medications Medications (Trade) Dose Ordered Sig/May Route PRN Reason Start Time Stop Time Status Last Admin Dose Admin Acetaminophen (Tylenol) 650 mg Q4H PRN ORAL Fever 05/03/17 22:00 06/02/17 21:59 05/05/17 10:36 Albuterol/ Ipratropium (DuoNeb 0.5-3(2.5)mg/3ml) 3 ml EVERY 4 HOURS PRN HHN Shortness of Breath 05/03/17 22:00 05/08/17 21:59 Aspirin (Ecotrin) 81 mg DAILY ORAL 05/04/17 09:00 06/03/17 08:59 05/05/17 08:58 Atorvastatin Calcium (Lipitor) 80 mg BEDTIME ORAL 05/04/17 21:00 06/03/17 20:59 05/04/17 21:10 Bisacodyl (Dulcolax) 10 mg ONCE ONCE ORAL 05/05/17 16:00 05/05/17 16:01 Dextrose (Dextrose 50%) STAT PRN IV Hypoglycemia 05/03/17 22:00 06/02/17 21:59 Famotidine (Pepcid I.v.) 20 mg Q12HR IVP 05/04/17 21:00 06/03/17 20:59 05/05/17 08:59 Furosemide (Lasix) 40 mg BID IV 05/04/17 18:00 06/03/17 17:59 05/05/17 08:56 Heparin Sodium (Porcine) (Heparin 5000 units/ml) 5,000 units EVERY 12 HOURS SUBQ 05/04/17 09:00 06/03/17 08:59 05/05/17 08:58 Lisinopril (Zestril) 10 mg DAILY ORAL 05/04/17 09:00 06/03/17 08:59 05/05/17 09:12 Morphine Sulfate (Morphine Sulfate) 4 mg Q4H PRN IVP For Pain 05/04/17 07:30 05/11/17 07:29 05/05/17 10:36 Ondansetron HCl (Zofran) 4 mg Q6H PRN IVP Nausea & Vomiting 05/03/17 22:00 06/02/17 21:59 Polyethylene Glycol (Miralax) 17 gm DAILYPRN PRN ORAL Constipation 05/03/17 22:00 06/02/17 21:59 Polyethylene Glycol/ Electrolytes (Nulytely) 4,000 ml ONCE ONCE ORAL 05/05/17 16:00 05/05/17 16:01 Sertraline HCl (Zoloft) 200 mg DAILY ORAL 05/04/17 09:00 06/03/17 08:59 05/05/17 08:54 Temazepam (Restoril) 15 mg HSPRN PRN ORAL Insomnia 05/03/17 22:00 05/10/17 21:59 LAMIN NEWTON May 05, 2017 12:47
[2017-05-05 13:29] LABS: ANISOCYTOSIS 2+; BAND NEUTROPHILS % (MANUAL) 0 % (0-8); BASOPHILS % (MANUAL) 0 % (0-2); EOSINOPHILS % (MANUAL) 0 % (0-3); HYPOCHROMASIA 1+; LYMPHOCYTES % (MANUAL) 16 % (20-45); NEUTROPHILS % (MANUAL) 80 % (45-75); PLATELET ESTIMATE ADEQUATE; PLATELET MORPHOLOGY NORMAL; TOTAL CELLS COUNTED 100
[2017-05-05 13:30] LABS: POLYCHROMASIA OCCASIONAL
[2017-05-05 13:48] LABS: PATH BLOOD SMEAR/OMC SENT TO PATHOLOGIST; RETICULOCYTE COUNT 1.6 % (0.0-2.0)
[2017-05-05 13:57] LABS: ERYTHROCYTE SEDIMENTATION RATE 31 MM/HR (0-30)
[2017-05-05] MEDS ORDERED: Piperacillin/Tazobactam 3.375 GM in NS 110 ML IVPB SCH (15:00)
--- NOTE | 2017-05-05 15:00 | Cardiology Progress Note ---
Assessment/Plan Assessment/Plan copd exacerbation chest pain atypical chronic abn ekg htn obeisty arleen in ability to use cpap du to lower jaw pain low jaw pain odontogenic somnolence due to arleen and pain med trop neg ekg unchanged since 2013 continue treatment for pulm issues k supplement hold today lasix since has had recent diarrhea resum tomorrow echo noted Subjective Cardiovascular: Reports: lightheadedness, Denies: chest pain Respiratory: Reports: shortness of breath Gastrointestinal/Abdominal: Denies: abdominal pain Genitourinary: Denies: burning Objective Last 24 Hour Vital Signs Date Time Temp Pulse Resp B/P Pulse Ox O2 Delivery O2 Flow Rate FiO2 05/05/17 12:48 90 05/05/17 11:55 98.8 97 20 121/74 95 Nasal Cannula 2.0 05/05/17 09:12 138/63 05/05/17 08:13 97.7 108 20 138/63 90 Nasal Cannula 2.0 05/05/17 07:49 105 05/05/17 07:44 Nasal Cannula 2.0 28 05/05/17 07:44 99 Nasal Cannula 2.0 28 05/05/17 07:44 99 20 Nasal Cannula 2.0 28 05/05/17 04:00 96 05/05/17 04:00 97.7 92 22 117/59 93 Nasal Cannula 05/05/17 00:00 97.7 91 20 126/62 98 Nasal Cannula 2.0 05/05/17 00:00 89 05/04/17 20:00 90 05/04/17 20:00 97.9 84 22 127/67 95 Nasal Cannula 2.0 05/04/17 19:54 Nasal Cannula 2.0 28 05/04/17 19:53 98 Nasal Cannula 2.0 28 05/04/17 19:53 98 20 Nasal Cannula 2.0 28 05/04/17 16:00 98.2 89 19 127/68 Nasal Cannula 2.0 95 General Appearance: alert Neck: supple Cardiovascular: normal rate, regular rhythm Respiratory/Chest: lungs clear, normal breath sounds Abdomen: non tender, soft Extremities: no swelling Intake and Output 05/04/17 05/05/17 19:00 07:00 Intake Total 1200 ml 300 ml Output Total 900 ml Balance 300 ml 300 ml Intake Oral 1200 ml 300 ml Output Urine Total 900 ml # Voids 3 3 Laboratory Tests Test 05/05/17 08:05 05/05/17 14:45 White Blood Count 9.8 K/UL (4.8-10.8) Red Blood Count 4.18 M/UL (4.20-5.40) L Hemoglobin 9.5 G/DL (12.0-16.0) L Hematocrit 33.3 % (37.0-47.0) L Mean Corpuscular Volume 80 FL (80-99) Mean Corpuscular Hemoglobin 22.8 PG (27.0-31.0) L Mean Corpuscular Hemoglobin Concent 28.6 G/DL (32.0-36.0) L Red Cell Distribution Width 20.5 % (11.6-14.8) H Platelet Count 251 K/UL (150-450) Mean Platelet Volume 5.8 FL (6.5-10.1) L Neutrophils (%) (Auto) 83.5 % (45.0-75.0) H Lymphocytes (%) (Auto) 10.6 % (20.0-45.0) L Monocytes (%) (Auto) 3.8 % (1.0-10.0) Eosinophils (%) (Auto) 1.3 % (0.0-3.0) Basophils (%) (Auto) 0.9 % (0.0-2.0) Differential Total Cells Counted 100 Neutrophils % (Manual) 80 % (45-75) H Lymphocytes % (Manual) 16 % (20-45) L Monocytes % (Manual) 4 % (1-10) Eosinophils % (Manual) 0 % (0-3) Basophils % (Manual) 0 % (0-2) Band Neutrophils 0 % (0-8) Platelet Estimate Adequate Platelet Morphology Normal Polychromasia Occasional Hypochromasia 1+ Anisocytosis 2+ Erythrocyte Sedimentation Rate 31 MM/HR (0-30) H Reticulocyte Count 1.6 % (0.0-2.0) Sodium Level 138 mEQ/L (135-145) Potassium Level 3.8 mEQ/L (3.4-4.9) Chloride Level 95 mEQ/L (98-107) L Carbon Dioxide Level 38 mEQ/L (20-30) H Anion Gap 5 (5-15) Blood Urea Nitrogen 9 mg/dL (7-23) Creatinine 0.8 mg/dL (0.5-0.9) Estimat Glomerular Filtration Rate > 60 mL/min (>60) Glucose Level 140 mg/dL (74-106) H Calcium Level 9.2 mg/dL (8.6-10.2) Total Bilirubin 0.3 mg/dL (0.0-1.2) Aspartate Amino Transf (AST/SGOT) 8 U/L (5-40) Alanine Aminotransferase (ALT/SGPT) 6 U/L (3-33) Alkaline Phosphatase 57 U/L (35-104) Lactate Dehydrogenase Pending Troponin I < 0.30 ng/mL (<=0.30) Pro-B-Type Natriuretic Peptide 118 pg/mL (0-125) Total Protein 7.0 g/dL (6.6-8.7) Albumin 4.0 g/dL (3.5-5.2) Globulin 3.0 g/dL Albumin/Globulin Ratio 1.3 (1.0-2.7) Prothrombin Time Pending Prothromb Time International Ratio Pending Activated Partial Thromboplast Time Pending Microbiology Date/Time Source Procedure Growth Status 05/03/17 20:50 Blood Blood Culture - Preliminary NO GROWTH AFTER 24 HOURS Resulted 05/03/17 20:45 Blood Blood Culture - Preliminary NO GROWTH AFTER 24 HOURS Resulted ANDI ZACARIAS May 05, 2017 15:00
[2017-05-05 15:12] LABS: INR 0.9 (0.9-1.1); PROTHROMBIN TIME 9.3 SEC (9.30-11.50)
[2017-05-05] MEDS ORDERED: Bisacodyl EC 5mg tab ORAL ONE (16:00)
[2017-05-05] MEDS ORDERED: Nulytely 4L ORAL ONE (16:00)
--- NOTE | 2017-05-05 17:50 | Cardiology Report ---
APPROVED REPORT EKG Measurement Heart [id number] OH [id number] Sinus tachycardia Otherwise normal ECG
--- NOTE | 2017-05-05 20:55 | Consultation ---
Consult Note Consult Note ID # [id number] FUENTES AYALA M.D. May 05, 2017 20:55
[2017-05-05] MEDS ORDERED: DuoNeb 0.5-3(2.5)mg/3ml neb HHN PRN (21:00)
[2017-05-05] MEDS: Atorvastatin 80mg tab ORAL SCH (21:52)
[2017-05-05] MEDS ORDERED: Miralax 17gm pkt ORAL PRN (22:00)
[2017-05-05 22:19] LABS: TROPONIN I < 0.30 ng/mL (<=0.30)
[2017-05-06] VITALS (9 sets, daily range): BP systolic 115–170; BP diastolic 65–99
[2017-05-06 06:33] LABS: BASOPHILS % (AUTO) 0.6 % (0.0-2.0); EOSINOPHILS % (AUTO) 1.9 % (0.0-3.0); LYMPHOCYTES % (AUTO) 20.3 % (20.0-45.0); MEAN CORPUSCULAR HGB CONC 29.1 G/DL (32.0-36.0); MEAN CORPUSCULAR VOLUME 79 FL (80-99); MEAN PLATELET VOLUME 6.8 FL (6.5-10.1); MONOCYTES % (AUTO) 5.3 % (1.0-10.0); NEUTROPHILS % (AUTO) 71.9 % (45.0-75.0); PLATELET COUNT 253 K/UL (150-450); RED BLOOD COUNT 4.27 M/UL (4.20-5.40); RED CELL DISTRIBUTION WIDTH 20.3 % (11.6-14.8); WHITE BLOOD COUNT 8.8 K/UL (4.8-10.8)
[2017-05-06 06:37] LABS: INR 0.9 (0.9-1.1); PROTHROMBIN TIME 9.8 SEC (9.30-11.50)
[2017-05-06 06:52] LABS: ALANINE AMINOTRANSFERASE 7 U/L (3-33); ALBUMIN/GLOBULIN RATIO 1.2 (1.0-2.7); ASPARTATE AMINO TRANSFERASE 9 U/L (5-40); CALCIUM 9.1 mg/dL (8.6-10.2); CHLORIDE 92 mEQ/L (98-107); CREATININE 0.7 mg/dL (0.5-0.9); GLOMERULAR FILTRATION RATE > 60 mL/min (>60); HEMOLYSIS 1; POTASSIUM 3.7 mEQ/L (3.4-4.9); SODIUM 141 mEQ/L (135-145); TOTAL PROTEIN 6.9 g/dL (6.6-8.7)
[2017-05-06 07:00] LABS: ANION GAP 8 (5-15)
[2017-05-06 07:04] LABS: CARBON DIOXIDE 41 mEQ/L (20-30)
[2017-05-06 07:09] LABS: MAGNESIUM 1.7 mg/dL (1.7-2.5); PHOSPHORUS 2.9 mg/dL (2.5-4.8)
--- NOTE | 2017-05-06 07:30 | Consultation ---
DATE OF CONSULTATION: INFECTIOUS DISEASES CONSULTATION CONSULTING PHYSICIAN: Fab Cardona M.D. REQUESTING PHYSICIAN: Win Ro M.D. REASON FOR CONSULTATION: Evaluation of the patient for facial cellulitis and antibiotic management. HISTORY OF PRESENT ILLNESS: The patient is a 52-year-old female with multiple medical problems, who has been admitted to this medical center due to shortness of breath and diffuse body pain. The patient also has been complaining of lower jaw pain and swelling due to dental infection. Infectious diseases consultation has been requested for further evaluation of the patient's antibiotic management. PAST MEDICAL HISTORY: 1. COPD. 2. CHF. 3. Obesity. 4. Sleep apnea. 5. Hyperlipidemia. 6. Uterine fibroid. 7. Renal insufficiency. MEDICATIONS: Levaquin. ALLERGIES: Iodine and shellfish. SOCIAL HISTORY: Significant for smoking. REVIEW OF SYSTEMS: A 10-point was done and except what is mentioned above has been negative. PHYSICAL EXAMINATION: VITAL SIGNS: Temperature 98.7 degrees, pulse 86, respiratory rate 18, and blood pressure 152/66. HEENT: Mild pale conjunctivae. No icterus. Mouth, the patient has poor oral hygiene, tender over the lower mandible. NECK: Upper neck tender. CHEST: Bilateral air entry. No crackles noted. HEART: S1 and S2. ABDOMEN: Soft, obese. EXTREMITIES: No cyanosis at this time. NEUROLOGIC: Awake and alert. LABORATORY AND DIAGNOSTIC DATA: White blood cells 9.8, hemoglobin 9.4, and platelets 251,000. BUN 9 and creatinine 0.8. ALT, AST, and alkaline phosphatase were unremarkable. Blood culture is pending. Chest x-ray, interstitial edema, CHF findings. Venous . ASSESSMENT: The patient is a 52-year-old female with multiple medical problems, who has: 1. Dental abscess. 2. Facial cellulitis. 3. Poor oral hygiene. PLAN: 1. Routine antibiotics clindamycin p.o. 2. Monitor CBC. 3. Monitor BMP. 4. Monitor the patient's clinical course. 5. We will follow recommendations. 6. CT of the abdomen. 7. CT of the head pending. 8. Based on the patient's clinical course and labs, we will do further recommendations. Thank you, Dr. Ro, for allowing me to participate in the care of this patient. I will follow the patient with you during this hospitalization. Fab Cardona M.D. DR: Bria JOB#: [id number] CC:
[2017-05-06] MEDS ORDERED: Fleet's Enema 133ml RECTAL ONE (08:00)
[2017-05-06] MEDS: Heparin 5000 units/ml inj SUBQ SCH ×2 (08:00→21:45)
[2017-05-06] MEDS: Aspirin EC 81mg tab ORAL SCH (09:00)
[2017-05-06] MEDS ORDERED: Lisinopril 2.5mg tab ORAL SCH (09:00)
[2017-05-06] MEDS: Famotidine 20 MG/ 2ML VIAL IVP SCH ×2 (09:31→21:43)
[2017-05-06] MEDS: Sertraline 100mg tab ORAL SCH (09:31)
[2017-05-06] MEDS ORDERED: Magnesium Citrate Liq Btl ORAL ONE (10:00)
--- NOTE | 2017-05-06 11:08 | Infectious Diseases Prog Note ---
Assessment/Plan Assessment/Plan Evaluation of the patient for facial cellulitis and antibiotic management. ? Dental abscess Facial cellulitis ( chin ) Poor dental hygiene ASCENCIO COPD CHF Obesity Sleep apnea Hyperlipidemia Uterine fibroid Renal insufficiency PLAN: cont antibiotics clindamycin d# 2 / 10 Monitor CBC. Monitor BMP. Monitor the patient's clinical course EGD and Colonoscopy :P CT of the head pending. Subjective Constitutional: Denies: anorexia, chills, drenching sweats, fatigue, fever, no symptoms, other Allergies: Coded Allergies: IODINE (Verified Allergy, Severe, Anaphylaxis, 05/05/17) Lettuce (Verified Allergy, Severe, Anaphylaxis, 06/24/15) SHELLFISH DERIVED (Verified Allergy, Severe, Anaphylaxis, 05/05/17) Objective Vital Signs Last 24 Hour Vital Signs Date Time Temp Pulse Resp B/P Pulse Ox O2 Delivery O2 Flow Rate FiO2 05/06/17 09:31 162/90 05/06/17 08:05 98.2 109 22 162/90 96 Nasal Cannula 4.0 05/06/17 07:02 93 Nasal Cannula 4.0 36 05/06/17 07:02 Nasal Cannula 4.0 36 05/06/17 07:02 98 20 Nasal Cannula 4.0 36 05/06/17 04:00 98.2 55 19 115/65 100 Nasal Cannula 3.0 05/05/17 23:47 98.7 93 20 152/66 90 Room Air 05/05/17 20:31 97.3 90 20 139/68 95 Room Air 05/05/17 20:00 97.9 90 18 139/68 97 Nasal Cannula 3.0 05/05/17 19:59 82 16 Nasal Cannula 2.0 28 05/05/17 19:59 Nasal Cannula 2.0 28 05/05/17 19:59 98 Nasal Cannula 2.0 28 05/05/17 15:46 97.7 86 18 139/75 98 Nasal Cannula 2.0 05/05/17 12:48 90 05/05/17 11:55 98.8 97 20 121/74 95 Nasal Cannula 2.0 Height (Feet): 5 Height (Inches): 4.00 Weight (Pounds): 312 HEENT: anicteric Respiratory/Chest: normal breath sounds Cardiovascular: regularly irregular Abdomen: non distended Microbiology Date/Time Source Procedure Growth Status 05/03/17 20:50 Blood Blood Culture - Preliminary NO GROWTH AFTER 48 HOURS Resulted 05/03/17 20:45 Blood Blood Culture - Preliminary NO GROWTH AFTER 48 HOURS Resulted Laboratory Tests Test 05/05/17 14:45 05/05/17 21:40 05/06/17 05:20 Prothrombin Time 9.3 SEC (9.30-11.50) 9.8 SEC (9.30-11.50) Prothromb Time International Ratio 0.9 (0.9-1.1) 0.9 (0.9-1.1) Activated Partial Thromboplast Time 27 SEC (23-33) 25 SEC (23-33) Troponin I < 0.30 ng/mL (<=0.30) White Blood Count 8.8 K/UL (4.8-10.8) Red Blood Count 4.27 M/UL (4.20-5.40) Hemoglobin 9.8 G/DL (12.0-16.0) L Hematocrit 33.9 % (37.0-47.0) L Mean Corpuscular Volume 79 FL (80-99) L Mean Corpuscular Hemoglobin 23.0 PG (27.0-31.0) L Mean Corpuscular Hemoglobin Concent 29.1 G/DL (32.0-36.0) L Red Cell Distribution Width 20.3 % (11.6-14.8) H Platelet Count 253 K/UL (150-450) Mean Platelet Volume 6.8 FL (6.5-10.1) Neutrophils (%) (Auto) 71.9 % (45.0-75.0) Lymphocytes (%) (Auto) 20.3 % (20.0-45.0) Monocytes (%) (Auto) 5.3 % (1.0-10.0) Eosinophils (%) (Auto) 1.9 % (0.0-3.0) Basophils (%) (Auto) 0.6 % (0.0-2.0) Sodium Level 141 mEQ/L (135-145) Potassium Level 3.7 mEQ/L (3.4-4.9) Chloride Level 92 mEQ/L (98-107) L Carbon Dioxide Level 41 mEQ/L (20-30) *H Anion Gap 8 (5-15) Blood Urea Nitrogen 7 mg/dL (7-23) Creatinine 0.7 mg/dL (0.5-0.9) Estimat Glomerular Filtration Rate > 60 mL/min (>60) Glucose Level 108 mg/dL (74-106) H Calcium Level 9.1 mg/dL (8.6-10.2) Phosphorus Level 2.9 mg/dL (2.5-4.8) Magnesium Level 1.7 mg/dL (1.7-2.5) Iron Level 30 ug/dL (37-145) L Total Iron Binding Capacity 407 ug/dL (250-400) H Percent Iron Saturation 7 % (15-50) L Unsaturated Iron Binding 377 ug/dL (112-346) H Total Bilirubin 0.4 mg/dL (0.0-1.2) Aspartate Amino Transf (AST/SGOT) 9 U/L (5-40) Alanine Aminotransferase (ALT/SGPT) 7 U/L (3-33) Alkaline Phosphatase 55 U/L (35-104) Total Protein 6.9 g/dL (6.6-8.7) Albumin 3.8 g/dL (3.5-5.2) Globulin 3.1 g/dL Albumin/Globulin Ratio 1.2 (1.0-2.7) Carcinoembryonic Antigen 1.8 ng/mL Vitamin B12 Level 369 pg/mL (211-946) Folate Pending Current Medications Medications (Trade) Dose Ordered Sig/May Route PRN Reason Start Time Stop Time Status Last Admin Dose Admin Acetaminophen (Tylenol) 650 mg Q4H PRN ORAL Fever 05/05/17 22:00 06/04/17 21:59 Albuterol/ Ipratropium (DuoNeb 0.5-3(2.5)mg/3ml) 3 ml EVERY 4 HOURS PRN HHN Shortness of Breath 05/05/17 21:00 05/10/17 20:59 Aspirin (Ecotrin) 81 mg DAILY ORAL 05/06/17 09:00 06/05/17 08:59 Atorvastatin Calcium (Lipitor) 80 mg BEDTIME ORAL 05/05/17 21:00 06/04/17 20:59 05/05/17 21:52 Clindamycin HCl/ Dextrose (Cleocin 300mg) 50 ml @ 100 mls/hr Q8HR IVPB 05/06/17 06:00 05/13/17 05:59 05/06/17 05:28 Dextrose (Dextrose 50%) STAT PRN IV Hypoglycemia 05/05/17 22:00 06/04/17 21:59 Famotidine (Pepcid I.v.) 20 mg Q12HR IVP 05/05/17 21:00 06/04/17 20:59 05/06/17 09:31 Furosemide (Lasix) 40 mg BID IV 05/06/17 09:00 06/05/17 08:59 05/06/17 09:30 Heparin Sodium (Porcine) (Heparin 5000 units/ml) 5,000 units EVERY 12 HOURS SUBQ 05/05/17 21:00 06/04/17 20:59 Lisinopril (Zestril) 10 mg DAILY ORAL 05/06/17 09:00 06/05/17 08:59 05/06/17 09:31 Morphine Sulfate (Morphine Sulfate) 4 mg Q4H PRN IVP For Pain 05/05/17 23:30 05/12/17 23:29 05/05/17 22:05 Ondansetron HCl (Zofran) 4 mg Q6H PRN IVP Nausea & Vomiting 05/05/17 22:00 06/04/17 21:59 05/05/17 22:01 Polyethylene Glycol (Miralax) 17 gm DAILYPRN PRN ORAL Constipation 05/05/17 22:00 06/04/17 21:59 Sertraline HCl (Zoloft) 200 mg DAILY ORAL 05/06/17 09:00 06/05/17 08:59 05/06/17 09:31 Temazepam 15 mg 15 mg HSPRN PRN ORAL Insomnia 05/05/17 22:00 05/12/17 21:59 FUENTES AYALA M.D. May 06, 2017 11:08
[2017-05-06] MEDS: Morphine Sulfate 4mg/ml Inj IVP PRN (11:31)
--- NOTE | 2017-05-06 12:12 | Pre-Procedure Note/Attestation ---
Pre-Procedure Note/Attestation Complete Prior to Procedure Planned Procedure: not applicable Procedure Narrative: egd/colon Indications for Procedure Pre-Operative Diagnosis: iron def anemia Attestation I attest that I discussed the nature of the procedure; its benefits; risks and complications; and alternatives (and the risks and benefits of such alternatives ), prior to the procedure, with the patient (or the patient's legal parts sales representative). I attest that, if there was a reasonable possibility of needing a blood transfusion, the patient (or the patient's legal parts sales representative) was given the [facility] standardized written summary, pursuant to the [place] Blood Safety Act ([place] Health and Safety Code # 1645, as amended). I attest that I re-evaluated the patient just prior to the surgery and that there has been no change in the patient's H&P, except as documented below: VONNIE RIVAS May 06, 2017 12:12
[2017-05-06] MEDS ORDERED: NS 550ML IV ONE (12:20)
[2017-05-06] MEDS ORDERED: Lidocaine 1% MPF 10mg/ml 5ml ONE (12:30)
[2017-05-06] MEDS ORDERED: Propofol 10mg/ml 20ml IV ONE (12:30)
[2017-05-06] MEDS ORDERED: NS 275ml ONE (12:36)
[2017-05-06] MEDS ORDERED: Tubing IV Secondary IV ONE (12:36)
--- NOTE | 2017-05-06 12:42 | Diagnostic Imaging Report ---
Indication: 52-year-old female with headache Technique: Continuous helical CT scanning of the head was performed without intravenous contrast material. Axial and coronal 5 mm sections were generated. Radiation dose was minimized using automated exposure control Dose: Total Dose Length Product - DLP [address] Dose Index - CTDIvol(s) 70.38 mGy. Comparison: None Findings: The ventricular system is normal in size and configuration. There is no shift of midline structures. No abnormal extra-axial fluid collections are noted. There is no evidence of intracerebral bleeding. No other abnormal high or low density areas are noted within the brain. Mastoids and sinuses are clear. Visualized portions of the orbits are unremarkable. The calvarium is intact. Impression: Normal CT scan of the head without contrast material. The CT scanner at [facility] is accredited by the [employer] and the scans are performed using protocols designed to limit radiation exposure to as low as reasonably achievable to attain images of sufficient resolution adequate for diagnostic evaluation.
--- NOTE | 2017-05-06 12:55 | Endoscopy Procedure Note ---
Endoscopy Procedure Note Indication for Procedure: anemia Procedures Performed: EGD, colonoscopy Operative Findings/Diagnosis: gastritis, poor prep Specimen: yes Pt Tolerated Procedure Well: Yes Estimated Blood Loss: none Anesthesiologist: daniel Anesthesia: MAC Implant(s) used?: No 50 yrs or older w/o bx or poly: Not Applicable 10yrs. F/U not recommended: Not Applicable VONNIE RIVAS May 06, 2017 12:55
[2017-05-06] MEDS ORDERED: Albuterol ud Inhalation ONE (13:10)
--- NOTE | 2017-05-06 13:12 | Immediate Post-Op Evaluation ---
Immediate Post-Op Evalulation Immediate Post-Op Evalulation Procedure: EGD /Colonoscopy Date of Evaluation: May 06, 2017 Time of Evaluation: 13:05 Blood Pressure Systolic: 150 Blood Pressure Diastolic: 60 Pulse Rate: 74 Respiratory Rate: 14 O2 Sat by Pulse Oximetry: 87 Temperature (Fahrenheit): 97.3 Nausea: No Vomiting: No Complications none Patient Status: awake, reacts, patent Hydration Status: adequate Drug: none SARAN HERNANDEZ CRNA May 06, 2017 13:12
--- NOTE | 2017-05-06 13:16 | Anethesia Preoperative Eval ---
Anesthesia Pre-op PMH/ROS General Date of Evaluation: May 06, 2017 Time of Evaluation: 13:00 Anesthesiologist: aung ASA Score: ASA 3 Mallampati Score Class I : Soft palate, uvula, fauces, pillars visible Class II: Soft palate, uvula, fauces visible Class III: Soft palate, base of uvula visible Class IV: Only hard plate visible Mallampati Classification: Class III Surgeon: kamilla Diagnosis: anemia Surgical Procedure: EGD/Colonoscopy Anesthesia History: none Family History: no anesthesia problems Allergies: Coded Allergies: IODINE (Verified Allergy, Severe, Anaphylaxis, 05/05/17) Lettuce (Verified Allergy, Severe, Anaphylaxis, 06/24/15) SHELLFISH DERIVED (Verified Allergy, Severe, Anaphylaxis, 05/05/17) Medications: see eMAR Past Medical History Cardiovascular: Reports: CAD, HTN Pulmonary: Reports: COPD, asthma Endocrine: Reports: DM HEENT: Denies: UNGA (L), UNGA (R), cataract (L), cataract (R), glaucoma, other Hematology/Immune: Reports: anemia PSxH Narrative: c/s Anesthesia Pre-op Phys. Exam Physician Exam Last Vital Signs Date Time Temp Pulse Resp B/P Pulse Ox O2 Delivery O2 Flow Rate FiO2 05/06/17 11:39 98.0 98 20 148/77 96 Nasal Cannula 4.0 05/06/17 07:02 36 Constitutional: NAD Neurologic: CN 2-12 intact Cardiovascular: RRR Respiratory: CTA Gastrointestinal: S/NT/ND Airway Exam Mallampati Classification 3 Mallampati Score: Class III MO: full ROM: full Dentures: no lower, no upper Anesthesia Pre-op A/P Labs Hematology Test 05/06/17 05:20 White Blood Count 8.8 K/UL (4.8-10.8) Red Blood Count 4.27 M/UL (4.20-5.40) Hemoglobin 9.8 G/DL (12.0-16.0) L Hematocrit 33.9 % (37.0-47.0) L Mean Corpuscular Volume 79 FL (80-99) L Mean Corpuscular Hemoglobin 23.0 PG (27.0-31.0) L Mean Corpuscular Hemoglobin Concent 29.1 G/DL (32.0-36.0) L Red Cell Distribution Width 20.3 % (11.6-14.8) H Platelet Count 253 K/UL (150-450) Mean Platelet Volume 6.8 FL (6.5-10.1) Neutrophils (%) (Auto) 71.9 % (45.0-75.0) Lymphocytes (%) (Auto) 20.3 % (20.0-45.0) Monocytes (%) (Auto) 5.3 % (1.0-10.0) Eosinophils (%) (Auto) 1.9 % (0.0-3.0) Basophils (%) (Auto) 0.6 % (0.0-2.0) Coagulation Test 05/05/17 14:45 05/06/17 05:20 Prothrombin Time 9.3 SEC (9.30-11.50) 9.8 SEC (9.30-11.50) Prothromb Time International Ratio 0.9 (0.9-1.1) 0.9 (0.9-1.1) Activated Partial Thromboplast Time 27 SEC (23-33) 25 SEC (23-33) Chemistry Test 05/05/17 21:40 05/06/17 05:20 Troponin I < 0.30 ng/mL (<=0.30) Sodium Level 141 mEQ/L (135-145) Potassium Level 3.7 mEQ/L (3.4-4.9) Chloride Level 92 mEQ/L (98-107) L Carbon Dioxide Level 41 mEQ/L (20-30) *H Anion Gap 8 (5-15) Blood Urea Nitrogen 7 mg/dL (7-23) Creatinine 0.7 mg/dL (0.5-0.9) Estimat Glomerular Filtration Rate > 60 mL/min (>60) Glucose Level 108 mg/dL (74-106) H Calcium Level 9.1 mg/dL (8.6-10.2) Phosphorus Level 2.9 mg/dL (2.5-4.8) Magnesium Level 1.7 mg/dL (1.7-2.5) Iron Level 30 ug/dL (37-145) L Total Iron Binding Capacity 407 ug/dL (250-400) H Percent Iron Saturation 7 % (15-50) L Unsaturated Iron Binding 377 ug/dL (112-346) H Total Bilirubin 0.4 mg/dL (0.0-1.2) Aspartate Amino Transf (AST/SGOT) 9 U/L (5-40) Alanine Aminotransferase (ALT/SGPT) 7 U/L (3-33) Alkaline Phosphatase 55 U/L (35-104) Total Protein 6.9 g/dL (6.6-8.7) Albumin 3.8 g/dL (3.5-5.2) Globulin 3.1 g/dL Albumin/Globulin Ratio 1.2 (1.0-2.7) Carcinoembryonic Antigen 1.8 ng/mL Vitamin B12 Level 369 pg/mL (211-946) Folate Pending Risk Assessment & Plan Assessment: 4 L NC/ Large morbid obese woman, Plan: mac Status Change Before Surgery: No Pre-Antibiotics Drug: none SARAN HERNANDEZ CRNA May 06, 2017 13:16
--- NOTE | 2017-05-06 13:17 | 48 Hour Post Anesthesia Eval ---
Post Anesthesia Evaluation Procedure: EGD /Colonoscopy Date of Evaluation: May 06, 2017 Time of Evaluation: 13:17 Blood Pressure Systolic: 150 0: 70 Pulse Rate: 80 Respiratory Rate: 14 O2 Sat by Pulse Oximetry: 99 Airway: patent Nausea: No Vomiting: No Hydration Status: adequate Cardiopulmonary Status: STABLE Mental Status/LOC: patient returned to baseline Follow-up Care/Observations: improved spo2 after breathing treatment Post-Anesthesia Complications: none Follow-up care needed: N/A SARAN HERNANDEZ CRNA May 06, 2017 13:17
[2017-05-06] MEDS ORDERED: Albuterol ud Inhalation HHN STA (13:20)
--- NOTE | 2017-05-06 16:18 | Pulmonology Progress Note ---
Assessment/Plan Problems: (1) Respiratory failure, acute (2) Acute exacerbation of CHF (congestive heart failure) (3) Purulent bronchitis (4) Diabetes mellitus (5) Dental abscess Assessment/Plan continue abx f/u GI recommendations f/u cardio recommendations med/surg dc probably in am Subjective ROS Limited/Unobtainable: No Constitutional: Reports: no symptoms Allergies: Coded Allergies: IODINE (Verified Allergy, Severe, Anaphylaxis, 05/05/17) Lettuce (Verified Allergy, Severe, Anaphylaxis, 06/24/15) SHELLFISH DERIVED (Verified Allergy, Severe, Anaphylaxis, 05/05/17) Objective Last 24 Hour Vital Signs Date Time Temp Pulse Resp B/P Pulse Ox O2 Delivery O2 Flow Rate FiO2 05/06/17 15:41 98.4 92 20 131/78 95 Nasal Cannula 4.0 05/06/17 13:17 80 14 99 05/06/17 13:15 97.0 95 28 166/98 93 Nasal Cannula 4.0 05/06/17 13:12 74 14 87 05/06/17 13:05 92 28 165/99 93 Simple Mask 8.0 05/06/17 13:00 94 28 170/98 93 Simple Mask 8.0 05/06/17 12:55 97.0 109 28 151/81 93 Simple Mask 8.0 05/06/17 11:39 98.0 98 20 148/77 96 Nasal Cannula 4.0 05/06/17 09:31 162/90 05/06/17 08:05 98.2 109 22 162/90 96 Nasal Cannula 4.0 05/06/17 07:02 93 Nasal Cannula 4.0 36 05/06/17 07:02 Nasal Cannula 4.0 36 05/06/17 07:02 98 20 Nasal Cannula 4.0 36 05/06/17 04:00 98.2 55 19 115/65 100 Nasal Cannula 3.0 05/05/17 23:47 98.7 93 20 152/66 90 Room Air 05/05/17 20:31 97.3 90 20 139/68 95 Room Air 05/05/17 20:00 97.9 90 18 139/68 97 Nasal Cannula 3.0 05/05/17 19:59 82 16 Nasal Cannula 2.0 28 05/05/17 19:59 Nasal Cannula 2.0 28 05/05/17 19:59 98 Nasal Cannula 2.0 28 Intake and Output 05/05/17 05/06/17 19:00 07:00 Intake Total 460 ml 50 ml Balance 460 ml 50 ml Intake Oral 360 ml IV Total 100 ml 50 ml # Voids 4 Objective egd showed gastritis, colonoscoy was not perfect because of poor prep. Microbiology Date/Time Source Procedure Growth Status 05/03/17 20:50 Blood Blood Culture - Preliminary NO GROWTH AFTER 48 HOURS Resulted 05/03/17 20:45 Blood Blood Culture - Preliminary NO GROWTH AFTER 48 HOURS Resulted Laboratory Tests 05/05/17 21:40: Troponin I < 0.30 05/06/17 05:20: White Blood Count 8.8, Red Blood Count 4.27, Hemoglobin 9.8L, Hematocrit 33.9L, Mean Corpuscular Volume 79L, Mean Corpuscular Hemoglobin 23.0L, Mean Corpuscular Hemoglobin Concent 29.1L, Red Cell Distribution Width 20.3H, Platelet Count 253, Mean Platelet Volume 6.8, Neutrophils (%) (Auto) 71.9, Lymphocytes (%) (Auto) 20.3, Monocytes (%) (Auto) 5.3, Eosinophils (%) (Auto) 1.9, Basophils (%) (Auto) 0.6, Prothrombin Time 9.8, Prothromb Time International Ratio 0.9, Activated Partial Thromboplast Time 25, Sodium Level 141, Potassium Level 3.7, Chloride Level 92L, Carbon Dioxide Level 41*H, Anion Gap 8, Blood Urea Nitrogen 7, Creatinine 0.7, Estimat Glomerular Filtration Rate > 60, Glucose Level 108H, Calcium Level 9.1, Phosphorus Level 2.9, Magnesium Level 1.7, Iron Level 30L, Total Iron Binding Capacity 407H, Percent Iron Saturation 7L, Unsaturated Iron Binding 377H, Total Bilirubin 0.4, Aspartate Amino Transf (AST/SGOT) 9, Alanine Aminotransferase (ALT/SGPT) 7, Alkaline Phosphatase 55, Total Protein 6.9, Albumin 3.8, Globulin 3.1, Albumin/ Globulin Ratio 1.2, Carcinoembryonic Antigen 1.8, Vitamin B12 Level 369, Folate [Pending] Current Medications Medications (Trade) Dose Ordered Sig/May Route PRN Reason Start Time Stop Time Status Last Admin Dose Admin Acetaminophen (Tylenol) 650 mg Q4H PRN ORAL Fever 05/05/17 22:00 06/04/17 21:59 Albuterol/ Ipratropium (DuoNeb 0.5-3(2.5)mg/3ml) 3 ml EVERY 4 HOURS PRN HHN Shortness of Breath 05/05/17 21:00 05/10/17 20:59 Aspirin (Ecotrin) 81 mg DAILY ORAL 05/06/17 09:00 06/05/17 08:59 Atorvastatin Calcium (Lipitor) 80 mg BEDTIME ORAL 05/05/17 21:00 06/04/17 20:59 05/05/17 21:52 Clindamycin HCl/ Dextrose (Cleocin 300mg) 50 ml @ 100 mls/hr Q8HR IVPB 05/06/17 06:00 05/13/17 05:59 05/06/17 14:11 Dextrose (Dextrose 50%) STAT PRN IV Hypoglycemia 05/05/17 22:00 06/04/17 21:59 Famotidine (Pepcid I.v.) 20 mg Q12HR IVP 05/05/17 21:00 06/04/17 20:59 05/06/17 09:31 Furosemide (Lasix) 40 mg BID IV 05/06/17 09:00 06/05/17 08:59 05/06/17 09:30 Heparin Sodium (Porcine) (Heparin 5000 units/ml) 5,000 units EVERY 12 HOURS SUBQ 05/05/17 21:00 06/04/17 20:59 Lisinopril (Zestril) 10 mg DAILY ORAL 05/07/17 09:00 06/06/17 08:59 Morphine Sulfate (Morphine Sulfate) 4 mg Q4H PRN IVP For Pain 05/05/17 23:30 05/12/17 23:29 05/06/17 11:31 Ondansetron HCl (Zofran) 4 mg Q6H PRN IVP Nausea & Vomiting 05/05/17 22:00 06/04/17 21:59 05/05/17 22:01 Polyethylene Glycol (Miralax) 17 gm DAILYPRN PRN ORAL Constipation 05/05/17 22:00 06/04/17 21:59 Sertraline HCl (Zoloft) 200 mg DAILY ORAL 05/06/17 09:00 06/05/17 08:59 05/06/17 09:31 Temazepam 15 mg 15 mg HSPRN PRN ORAL Insomnia 05/05/17 22:00 05/12/17 21:59 LAMIN NEWTON May 06, 2017 16:18
--- NOTE | 2017-05-06 19:45 | Procedure Note ---
DATE OF PROCEDURE: 05/06/2017 PROCEDURE: Upper endoscopy with biopsy and flexible sigmoidoscopy. SURGEON: Naresh Stanton M.D. ANESTHESIOLOGIST: Aylin Munoz CRNA. INSTRUMENT: Olympus adult flexible upper endoscope and colonoscope. INDICATION: Anemia and iron deficiency. The procedure, risks, benefits, and possible consequences, including hemorrhage, aspiration, perforation and infection, and alternative treatments, were explained to the patient/legal guardian by Dr. Naresh Stanton and the patient/legal guardian understood and accepted these risks. DESCRIPTION OF PROCEDURE: After informed consent was obtained and the patient was adequately sedated, Olympus upper endoscope was advanced from mouth into the second portion of the duodenum and retroflexion was performed of the stomach. The patient has diffuse gastritis. Random biopsy from antrum was obtained to rule out H. pylori infection. Otherwise, the rest of the upper endoscopic examination was within normal limits. At this time, the upper endoscope was retrieved and the patient was turned over for colonoscopy. First, a rectal exam was performed, which was positive for internal hemorrhoids. Then, the scope was advanced from the rectum into the sigmoid colon. The prep was very poor. We could not see where we were going. Also the patient so we decided to not to continue at this time. SUMMARY OF FINDINGS: 1. Gastritis. 2. Incomplete colonoscopy examination. Only sigmoidoscope was advanced into the sigmoid colon. Even that examination was poor given poor prep. RECOMMENDATIONS: 1. Follow up biopsies results and treat accordingly. 2. The patient will need outpatient followup for repeat colonoscopy with better prep. Naresh Stanton M.D. DR: ADDIE JOB#: [id number] CC:
[2017-05-06] MEDS: Atorvastatin 80mg tab ORAL SCH (21:43)
[2017-05-07] VITALS: BP 148/82
[2017-05-07] MEDS: Morphine Sulfate 4mg/ml Inj IVP PRN (05:43)
[2017-05-07 07:04] LABS: CALCIUM 8.9 mg/dL (8.6-10.2); CHLORIDE 89 mEQ/L (98-107); CREATININE 0.7 mg/dL (0.5-0.9); GLOMERULAR FILTRATION RATE > 60 mL/min (>60); HEMOLYSIS 1; POTASSIUM 3.4 mEQ/L (3.4-4.9); SODIUM 140 mEQ/L (135-145)
[2017-05-07 07:12] LABS: ANION GAP 5 (5-15)
[2017-05-07 07:14] LABS: BASOPHILS % (AUTO) 0.8 % (0.0-2.0); LYMPHOCYTES % (AUTO) 16.5 % (20.0-45.0); MEAN CORPUSCULAR HEMOGLOBIN 23.1 PG (27.0-31.0); MEAN CORPUSCULAR HGB CONC 29.4 G/DL (32.0-36.0); MEAN CORPUSCULAR VOLUME 79 FL (80-99); MEAN PLATELET VOLUME 6.4 FL (6.5-10.1); MONOCYTES % (AUTO) 7.4 % (1.0-10.0); NEUTROPHILS % (AUTO) 73.4 % (45.0-75.0); PLATELET COUNT 244 K/UL (150-450); RED BLOOD COUNT 4.45 M/UL (4.20-5.40); RED CELL DISTRIBUTION WIDTH 20.4 % (11.6-14.8); WHITE BLOOD COUNT 8.4 K/UL (4.8-10.8)
[2017-05-07 07:25] LABS: CARBON DIOXIDE 46 mEQ/L (20-30)
[2017-05-07 08:00] VITALS: BP 150/79
[2017-05-07] MEDS ORDERED: Lisinopril 10mg tab ORAL SCH (09:00)
[2017-05-07] MEDS: Famotidine 20 MG/ 2ML VIAL IVP SCH (09:13)
[2017-05-07] MEDS: Aspirin EC 81mg tab ORAL SCH (09:13)
[2017-05-07] MEDS: Sertraline 100mg tab ORAL SCH (09:13)
[2017-05-07] MEDS: Heparin 5000 units/ml inj SUBQ SCH (09:17)
--- NOTE | 2017-05-07 10:32 | GI Progress Note ---
Assessment/Plan Problems: (1) Anemia ICD Codes: D64.9 - Anemia, unspecified SNOMED: 177556453 (2) Morbid obesity ICD Codes: E66.01 - Morbid obesity SNOMED: 271734957 (3) Diarrhea ICD Codes: R19.7 - Diarrhea, unspecified SNOMED: 41633982 (4) Cocaine abuse ICD Codes: F14.10 - Cocaine abuse, uncomplicated SNOMED: 26494216, 004226559 (5) Abdominal pain ICD Codes: R10.9 - Abdominal pain SNOMED: 44706885 Status: stable Status Narrative Discussed with Dr. Stanton. Assessment/Plan SUMMARY OF FINDINGS: 1. Gastritis. 2. Incomplete colonoscopy examination. Only sigmoidoscope was advanced into the sigmoid colon. Even that examination was poor given poor prep. Troponin negative x 3 lipase WNL utox positive for cocaine OB stool negative RECOMMENDATIONS: ok for DC per GI standpoint follow up biopsies results and treat accordingly patient will need outpatient followup for repeat colonoscopy with better prep. cardiac diet, tolerating H2B fu labs Subjective Gastrointestinal/Abdominal: Reports: no symptoms Objective Last 24 Hour Vital Signs Date Time Temp Pulse Resp B/P Pulse Ox O2 Delivery O2 Flow Rate FiO2 05/07/17 09:13 150/79 05/07/17 08:00 97.2 100 20 150/79 92 Nasal Cannula 3.0 05/07/17 07:33 99 20 Nasal Cannula 4.0 36 05/07/17 07:33 Nasal Cannula 4.0 36 05/07/17 07:33 95 Nasal Cannula 4.0 36 05/07/17 00:00 98.0 97 20 148/82 96 Nasal Cannula 4.0 05/06/17 22:28 163/92 05/06/17 21:42 15 20 Nasal Cannula 4.0 36 05/06/17 21:42 Nasal Cannula 4.0 36 05/06/17 21:42 96 Nasal Cannula 4.0 36 05/06/17 20:00 98.4 99 20 163/92 94 Nasal Cannula 4.0 05/06/17 15:41 98.4 92 20 131/78 95 Nasal Cannula 4.0 05/06/17 13:17 80 14 99 05/06/17 13:15 97.0 95 28 166/98 93 Nasal Cannula 4.0 05/06/17 13:12 74 14 87 05/06/17 13:05 92 28 165/99 93 Simple Mask 8.0 05/06/17 13:00 94 28 170/98 93 Simple Mask 8.0 05/06/17 12:55 97.0 109 28 151/81 93 Simple Mask 8.0 05/06/17 11:39 98.0 98 20 148/77 96 Nasal Cannula 4.0 Intake and Output 05/06/17 05/07/17 19:00 07:00 Intake Total 540 ml 200 ml Balance 540 ml 200 ml Intake Oral 240 ml IV Total 300 ml 200 ml # Voids 2 6 # Bowel Movements 2 Laboratory Tests Test 05/06/17 18:00 05/07/17 06:00 Stool Occult Blood Negative (NEGATIVE) White Blood Count 8.4 K/UL (4.8-10.8) Red Blood Count 4.45 M/UL (4.20-5.40) Hemoglobin 10.3 G/DL (12.0-16.0) L Hematocrit 35.0 % (37.0-47.0) L Mean Corpuscular Volume 79 FL (80-99) L Mean Corpuscular Hemoglobin 23.1 PG (27.0-31.0) L Mean Corpuscular Hemoglobin Concent 29.4 G/DL (32.0-36.0) L Red Cell Distribution Width 20.4 % (11.6-14.8) H Platelet Count 244 K/UL (150-450) Mean Platelet Volume 6.4 FL (6.5-10.1) L Neutrophils (%) (Auto) 73.4 % (45.0-75.0) Lymphocytes (%) (Auto) 16.5 % (20.0-45.0) L Monocytes (%) (Auto) 7.4 % (1.0-10.0) Eosinophils (%) (Auto) 2.0 % (0.0-3.0) Basophils (%) (Auto) 0.8 % (0.0-2.0) Sodium Level 140 mEQ/L (135-145) Potassium Level 3.4 mEQ/L (3.4-4.9) Chloride Level 89 mEQ/L (98-107) L Carbon Dioxide Level 46 mEQ/L (20-30) *H Anion Gap 5 (5-15) Blood Urea Nitrogen 8 mg/dL (7-23) Creatinine 0.7 mg/dL (0.5-0.9) Estimat Glomerular Filtration Rate > 60 mL/min (>60) Glucose Level 126 mg/dL (74-106) H Calcium Level 8.9 mg/dL (8.6-10.2) Height (Feet): 5 Height (Inches): 4.00 Weight (Pounds): 312 General Appearance: no apparent distress, alert, morbidly obese Cardiovascular: normal rate Respiratory/Chest: no respiratory distress Abdominal Exam: normal bowel sounds, non tender, soft Extremities: normal range of motion Ludivina Fish N.P. May 07, 2017 10:32
[2017-05-07 12:00] VITALS: BP 120/78
[2017-05-07] MEDS ORDERED: CLINDAMYCIN HC150 MG ORAL (14:55)
--- NOTE | 2017-05-07 14:58 | Pulmonology Progress Note ---
Assessment/Plan Problems: (1) Respiratory failure, acute (2) Acute exacerbation of CHF (congestive heart failure) (3) Purulent bronchitis (4) Diabetes mellitus (5) Dental abscess Assessment/Plan improving all noted med/surg dc home with oral antibiotics Subjective ROS Limited/Unobtainable: No Constitutional: Reports: no symptoms HEENT: Repors: no symptoms Respiratory: Reports: no symptoms Allergies: Coded Allergies: IODINE (Verified Allergy, Severe, Anaphylaxis, 05/05/17) Lettuce (Verified Allergy, Severe, Anaphylaxis, 06/24/15) SHELLFISH DERIVED (Verified Allergy, Severe, Anaphylaxis, 05/05/17) Objective Last 24 Hour Vital Signs Date Time Temp Pulse Resp B/P Pulse Ox O2 Delivery O2 Flow Rate FiO2 05/07/17 12:00 97.3 100 20 120/78 91 Nasal Cannula 3.0 05/07/17 09:13 150/79 05/07/17 08:00 97.2 100 20 150/79 92 Nasal Cannula 3.0 05/07/17 07:33 99 20 Nasal Cannula 4.0 36 05/07/17 07:33 Nasal Cannula 4.0 36 05/07/17 07:33 95 Nasal Cannula 4.0 36 05/07/17 00:00 98.0 97 20 148/82 96 Nasal Cannula 4.0 05/06/17 22:28 163/92 05/06/17 21:42 15 20 Nasal Cannula 4.0 36 05/06/17 21:42 Nasal Cannula 4.0 36 05/06/17 21:42 96 Nasal Cannula 4.0 36 05/06/17 20:00 98.4 99 20 163/92 94 Nasal Cannula 4.0 05/06/17 15:41 98.4 92 20 131/78 95 Nasal Cannula 4.0 Intake and Output 05/06/17 05/07/17 19:00 07:00 Intake Total 540 ml 200 ml Balance 540 ml 200 ml Intake Oral 240 ml IV Total 300 ml 200 ml # Voids 2 6 # Bowel Movements 2 Objective egd showed gastritis, colonoscoy was not perfect because of poor prep. General Appearance: WD/WN HEENT: normocephalic, atraumatic Respiratory/Chest: chest wall non-tender, lungs clear Breasts: no masses Cardiovascular: normal peripheral pulses Abdomen: soft, non tender, no organomegaly Extremities: no cyanosis Skin: no rash Laboratory Tests 05/06/17 18:00: Stool Occult Blood Negative 05/07/17 06:00: White Blood Count 8.4, Red Blood Count 4.45, Hemoglobin 10.3L, Hematocrit 35.0L , Mean Corpuscular Volume 79L, Mean Corpuscular Hemoglobin 23.1L, Mean Corpuscular Hemoglobin Concent 29.4L, Red Cell Distribution Width 20.4H, Platelet Count 244, Mean Platelet Volume 6.4L, Neutrophils (%) (Auto) 73.4, Lymphocytes (%) (Auto) 16.5L, Monocytes (%) (Auto) 7.4, Eosinophils (%) (Auto) 2.0, Basophils (%) (Auto) 0.8, Sodium Level 140, Potassium Level 3.4, Chloride Level 89L, Carbon Dioxide Level 46*H, Anion Gap 5, Blood Urea Nitrogen 8, Creatinine 0.7, Estimat Glomerular Filtration Rate > 60, Glucose Level 126H, Calcium Level 8.9 Current Medications Medications (Trade) Dose Ordered Sig/May Route PRN Reason Start Time Stop Time Status Last Admin Dose Admin Acetaminophen (Tylenol) 650 mg Q4H PRN ORAL Fever 05/05/17 22:00 06/04/17 21:59 Albuterol/ Ipratropium (DuoNeb 0.5-3(2.5)mg/3ml) 3 ml EVERY 4 HOURS PRN HHN Shortness of Breath 05/05/17 21:00 05/10/17 20:59 Aspirin (Ecotrin) 81 mg DAILY ORAL 05/06/17 09:00 06/05/17 08:59 05/07/17 09:13 Atorvastatin Calcium (Lipitor) 80 mg BEDTIME ORAL 05/05/17 21:00 06/04/17 20:59 05/06/17 21:43 Clindamycin HCl/ Dextrose (Cleocin 300mg) 50 ml @ 100 mls/hr Q8HR IVPB 05/06/17 06:00 05/13/17 05:59 05/07/17 13:29 Clonidine HCl (Catapres) 0.1 mg Q6H PRN ORAL SBP > 160 05/06/17 21:45 06/05/17 21:44 05/06/17 22:28 Dextrose (Dextrose 50%) STAT PRN IV Hypoglycemia 05/05/17 22:00 06/04/17 21:59 Furosemide (Lasix) 40 mg EVERY 12 HOURS ORAL 05/07/17 21:00 06/06/17 20:59 Heparin Sodium (Porcine) (Heparin 5000 units/ml) 5,000 units EVERY 12 HOURS SUBQ 05/05/17 21:00 06/04/17 20:59 05/07/17 09:17 Lisinopril (Zestril) 10 mg DAILY ORAL 05/07/17 09:00 06/06/17 08:59 05/07/17 09:13 Morphine Sulfate (Morphine Sulfate) 4 mg Q4H PRN IVP For Pain 05/05/17 23:30 05/12/17 23:29 05/07/17 05:43 Ondansetron HCl (Zofran) 4 mg Q6H PRN IVP Nausea & Vomiting 05/05/17 22:00 06/04/17 21:59 05/06/17 23:28 Polyethylene Glycol (Miralax) 17 gm DAILYPRN PRN ORAL Constipation 05/05/17 22:00 06/04/17 21:59 Ranitidine HCl (Zantac) 150 mg TWICE A DAY ORAL 05/07/17 18:00 06/06/17 17:59 Sertraline HCl (Zoloft) 200 mg DAILY ORAL 05/06/17 09:00 06/05/17 08:59 05/07/17 09:13 Temazepam 15 mg 15 mg HSPRN PRN ORAL Insomnia 05/05/17 22:00 05/12/17 21:59 LAMIN NEWTON May 07, 2017 14:58
[2017-05-07 16:00] VITALS: BP 128/82
[2017-05-07] MEDS ORDERED: Furosemide 40mg tab ORAL SCH (21:00)
--- NOTE | 2017-05-10 09:47 | Discharge Summary ---
Discharge Summary Hospital Course Date of Admission May 03, 2017 at 21:23 Date of Discharge May 07, 2017 at 16:45 Admitting Diagnosis dyspnea HPI Christina Jimenez is a 52 year old female who was admitted on May 03, 2017 at 21:23 for Dyspnea Hospital Course dc summary #[id number] Discharge Medications New Medications: Clindamycin Hcl* (Clindamycin Hcl*) 150 Mg Capsule 150 MG ORAL FOUR TIMES A DAY for 10 Days, CAP Continued Medications: Albuterol Sulfate (Ventolin Hfa) 18 Gm Hfa.aer.ad 1 PUFF INH EVERY 6 HOURS PRN for Shortness of Breath, #18 GM 0 Refills Atorvastatin Calcium* (Lipitor*) 40 Mg Tablet 80 MG ORAL BEDTIME, #30 TAB 0 Refills Diphenhydramine Hcl (Banophen) 50 Mg Capsule 50 MG PO PRN for Itching, CAP Furosemide (Furosemide) 80 Mg Tablet 20 MG ORAL BID, TAB Ibuprofen (Ibuprofen*) 200 Mg Tablet 800 MG ORAL THREE TIMES A DAY, #30 TAB 0 Refills Levalbuterol Hcl (Xopenex*) 0.63 Mg/3 Ml Vial.neb Unknown Dose HHN Q4H for 30 Days, MG 0 Refills Lisinopril (Lisinopril*) 5 Mg Tablet 10 MG ORAL DAILY, TAB Nitroglycerin (Nitroglycerin) 0.4 Mg Tab.subl 0.4 MG SL DAILY PRN for For Pain, TAB Sertraline Hcl* (Zoloft*) 100 Mg Tablet 200 MG ORAL DAILY, TAB Tiotropium Clay* (Spiriva*) 18 Mcg Cap.w.dev 1 PUFF INH DAILY PRN for Shortness of Breath, EA Discharge Condition Upon Discharge: stable Discharge Disposition Patient was discharged to Home with Home Health(06) Discharge Diagnoses: Discharge Instructions Discharge Instructions Special Instructions I have been assigned to complete a D/C Summary on this account. I was not involved in the patient management Arminda Arnold NP (Vanchtein) May 10, 2017 09:47
--- NOTE | 2017-05-11 01:45 | Discharge Summary 2 SIG ---
DATE OF ADMISSION: 05/03/2017 DATE OF DISCHARGE: 05/07/2017 REASON FOR ADMISSION AND HISTORY OF PRESENT ILLNESS: This is a 52-year-old morbidly obese female with past medical history significant for COPD, CHF, hypertension, morbid obesity, and obstructive sleep apnea, presented to the emergency department with shortness of breath, pain in the left ear, left tooth pain, and swelling on the left side of the face. The patient also reported episodes of diarrhea and vomiting. The patient reported cough and yellow sputum. She had a chest pain, nonradiating, and not associated with exertion. Initial evaluation in the emergency department revealed white blood count of 10.1, anemia with hemoglobin of 10, hematocrit 32.9, and troponin negative. EKG revealed sinus rhythm. No acute ischemic changes. Chest x-ray revealed no effusion. No pneumothorax, but revealed interstitial edema consistent with possible CHF. ProBNP was 297. Upon presentation, ABG was done on two liters nasal cannula and revealed pulse oximetry 94% with pCO2 of 67. Lactic acid was 0.6. Potassium was 3.3. Urinalysis was negative. Urine toxicology screen was positive for cocaine. The patient was admitted for further management. ADMITTING DIAGNOSES: 1. Acute hypercapnic respiratory failure. 2. Purulent bronchitis. 3. Possible acute congestive heart failure exacerbation. 4. Facial cellulitis. 5. Possible dental abscess. 6. Anemia. 7. Diabetes mellitus. HOSPITAL COURSE: The patient was admitted. Cardiology consult and ID consult were requested. Per Cardiology, chest pain is atypical. Serial troponin x4 were negative. EKG revealed no acute ischemic changes. The patient was ruled out for acute IN, per protocol. The patient has chronically abnormal EKG, but no changes since 2013. Potassium supplements provided. Echocardiogram revealed preserved ejection fraction of 55% to 60%. The patient was on supplemental oxygen and pulmonary toilet. The patient was on empiric antibiotics. ID consult requested. Blood culture negative. The patient was unable to provide sputum culture. CT of the head was negative. Blood pressure was controlled with JUAN-inhibitor and diuresis. Renal parameters and electrolytes were closely monitored. DVT and GI prophylaxis provided. Blood sugar was managed with sliding scale of insulin, was stable. GI followed the patient for anemia. Anemia workup revealed iron-deficiency anemia. Peripheral blood smear review revealed normocytic hypochromic moderate anemia. The patient subsequently undergone EGD and colonoscopy. As per GI recommendation, GI follow closely. EGD found diffuse gastritis. Biopsy still pending. GI recommended followup with the results of biopsy and treat accordingly. Colonoscopy was unable to be performed and only sigmoidoscopy performed due to the poor preparation. GI recommended outpatient followup and repeat colonoscopy with better preparation. The patient was counseled on abstinence from illicit street drugs. Stool OB was negative. Venous Duplex bilateral lower extremity was negative. CEA was within normal limits. Hemoglobin and hematocrit actually stayed at the baseline. Urinalysis is negative. The patient was stable for discharge home on oral antibiotic as recommended by ID specialist. The patient was stable for discharge. DISCHARGE DIAGNOSES: 1. Acute hypercapnic respiratory failure. 2. Purulent bronchitis. 3. Facial cellulitis. 4. Possible dental abscess. 5. Congestive heart failure. 6. Iron-deficiency anemia. 7. Diabetes mellitus. 8. Status post esophagogastroduodenoscopy and colonoscopy. 9. Gastritis. 10. Hypertension. 11. Morbid obesity. DISCHARGE MEDICATIONS: See medication reconciliation list. DISCHARGE INSTRUCTIONS: The patient was discharged home. Follow up with primary medical doctor. Win Ro M.D. I have been assigned to dictate discharge summary on this account and I was not involved in the patient's management. Arminda Gilbertjohn r. [facility] children[facility] hospitalTerri NJohniePJohnie DR: Terry JOB#: [id number] CC:
== END 2017-05-07 16:45 | disposition home health service (06) | DRG 190 ==
LOC: EDBD 20:40 → EMR 21:20 → 2E 21:23 → EDBEDREQ 21:50 → 2E 23:33 → 4E 05-05 21:18
PROC: 0DB68ZX Excision of Stomach, Via Natural or Artificial Opening Endoscopic, Diagnostic (ICD-10-PCS; principal; 2017-05-06 12:33)
PROC: 0DJD8ZZ Inspection of Lower Intestinal Tract, Via Natural or Artificial Opening Endoscopic (ICD-10-PCS; principal; 2017-05-06 12:33)
DX: J44.1 Chronic obstructive pulmonary disease with (acute) exacerbation (principal); J96.02 Acute respiratory failure with hypercapnia; I50.9 Heart failure, unspecified; I10 Essential (primary) hypertension; D50.9 Iron deficiency anemia, unspecified; F14.10 Cocaine abuse, uncomplicated; L03.211 Cellulitis of face; Z68.43 Body mass index [BMI] 50.0-59.9, adult; E11.9 Type 2 diabetes mellitus without complications; E66.01 Morbid (severe) obesity due to excess calories; J41.1 Mucopurulent chronic bronchitis; K04.7 Periapical abscess without sinus; K29.70 Gastritis, unspecified, without bleeding; G47.33 Obstructive sleep apnea (adult) (pediatric); R19.7 Diarrhea, unspecified; F17.200 Nicotine dependence, unspecified, uncomplicated; R07.89 Other chest pain; R40.0 Somnolence; Z88.8 Allergy status to other drugs, medicaments and biological substances
CPT/HCPCS: 36415; 36600; 70450; 71010; 80048; 80053; 80069; 80300; 81003; 82270; 82378; 82550; 82553; 82607; 82746; 82803; 82962; 83540; 83550; 83605; 83615; 83690; 83735; 83880; 84100; 84484; 85007; 85025; 85044; 85060; 85610; 85651; 85730; 87040; 93005; 93306; 93970; 94003; 94150; 94640; 94664; 94760; J2405; J8499; S0077

== ENCOUNTER 2017-06-29 16:09 | Inpatient (IN) | payer MEDICARE, OTHER ==
[~2017-06-29] VITALS: Ht 162.6 cm; Wt 135.3 kg
[~2017-06-29 16:09] MED LIST changes: +BANOPHEN50 MG PO; +CLINDAMYCIN HC150 MG ORAL; +LISINOPRIL20 MG ORAL; +METOPROLOL TART25 MG ORAL; +SERTRALINE HCL100 MG PO; +XOPENEX0.63 MG/3 HHN
[2017-06-29] MEDS ORDERED: Solu-MEDROL 125mg Inj IVP ONE (16:45)
[2017-06-29] MEDS: Ipratropium 0.02% Inh Soln 2.5ml UD HHN SCH ×3 (17:15→17:36)
[2017-06-29] MEDS: Albuterol ud Inhalation HHN SCH ×2 (17:16→17:36)
[2017-06-29] MEDS ORDERED: ZANTAC150 MG ORAL (17:51)
[2017-06-29] MEDS ORDERED: BANOPHEN50 MG PO (17:51)
[2017-06-29] MEDS ORDERED: MAGNESIUM400 M1 PO (17:51)
[2017-06-29] MEDS ORDERED: PROMETHAZINE HCL PO (17:51)
[2017-06-29 18:28] VITALS: BP 119/60
[2017-06-29] MEDS ORDERED: Miralax 17gm pkt ORAL PRN (18:30)
[2017-06-29] MEDS ORDERED: DuoNeb 0.5-3(2.5)mg/3ml neb HHN PRN (18:30)
[2017-06-29 18:59] VITALS: BP 127/64
[2017-06-29] MEDS ORDERED: Dicyclomine HCl 10mg/5ml oral soln ORAL ONE (19:00)
[2017-06-29] MEDS ORDERED: Mylanta II UD 30ml ORAL ONE (19:00)
[2017-06-29] MEDS ORDERED: Lidocaine 2% Visc 15ml soln ORAL ONE (19:00)
[2017-06-29] MEDS ORDERED: Morphine Sulfate 4mg/ml Inj IVP ONE (19:00)
[2017-06-29] MEDS ORDERED: ATORVASTATIN CA80 MG ORAL (19:58)
[2017-06-29] MEDS ORDERED: LASIX20 M1 ORAL (19:59)
[2017-06-29] MEDS ORDERED: METOPROLOL TART50 M1 ORAL (20:04)
[2017-06-29] MEDS ORDERED: TRAMADOL HCL50 MG ORAL (20:08)
[2017-06-29] MEDS ORDERED: SPIRIVA18 MCG INH (20:08)
[2017-06-29] MEDS ORDERED: QVAR7.3 GM INH (20:11)
[2017-06-29] MEDS ORDERED: IBUPROFEN600 MG ORAL (20:34)
[2017-06-29 20:50] VITALS: BP 136/76
[2017-06-29 21:05] LABS: APPEARANCE,URINE CLEAR; KETONES,URINE NEGATIVE (NEGATIVE); LEUKOCYTE ESTERASE ,URINE 1+ (NEGATIVE); NITRITE,URINE NEGATIVE (NEGATIVE); PH,URINE 6 (4.5-8.0); PROTEIN,URINE NEGATIVE (NEGATIVE); UROBILINOGEN,URINE 1 MG/DL (0.0-1.0)
[2017-06-29 21:19] LABS: BACTERIA,URINE FEW /HPF; MUCUS,URINE FEW /LPF (NONE/OCC); RBC,URINE 0-2 /HPF (0 - 2); SQUAMOUS EPITHELIAL CELL,UR FEW /LPF (NONE/OCC)
--- NOTE | 2017-06-29 21:50 | Emergency Room Report ---
History of Present Illness General Chief Complaint: Chest Pain Source: Patient Present Illness HPI Patient presents emergency department today complaining of chest pain. Patient states that she develop acute onset chest pain shortness breath the last 24 hours. Patient has history of COPD. Symptoms are noted to be highly severe. She denies any leg pain leg swelling. Patient is a smoker. No other modifying factors. No other associated signs and symptoms. No other complaints were noted. Allergies: Coded Allergies: IODINE (Verified Allergy, Severe, Anaphylaxis, 05/05/17) Lettuce (Verified Allergy, Severe, Anaphylaxis, 06/24/15) SHELLFISH DERIVED (Verified Allergy, Severe, Anaphylaxis, 05/05/17) Patient History Past Medical History: HTN, CHF, COPD Past Surgical History: none Pertinent Family History: none Social History: Reports: smoking Reviewed Nursing Documentation: PMH: Agreed, PSxH: Agreed Nursing Documentation-PMH Hx Cardiac Problems: Yes - CHF Hx Hypertension: Yes Hx Pacemaker: No Hx Asthma: Yes Hx COPD: Yes Hx Diabetes: Yes Hx Cancer: No Hx Gastrointestinal Problems: Yes Hx Dialysis: No Hx Neurological Problems: Yes Hx Cerebrovascular Accident: No Hx Seizures: No Hx Dizziness: Yes Hx Headaches: Yes Hx Numbness: Yes - Left two fingers Review of Systems All Other Systems: negative except mentioned in HPI Physical Exam Vital Signs Date Time Temp Pulse Resp B/P Pulse Ox O2 Delivery O2 Flow Rate FiO2 06/29/17 16:16 98.6 87 24 119/60 96 Nasal Cannula 2.0 06/29/17 17:17 28 Sp02 EP Interpretation: reviewed, normal General Appearance: alert, other - obese, slightly short of breath Head: atraumatic Eyes: bilateral eye normal inspection ENT: normal ENT inspection, hearing grossly normal, normal voice Neck: normal inspection, full range of motion, supple, no bony tend Respiratory: respiratory distress, wheezing, expiration, inspiration Cardiovascular #1: regular rate, rhythm, no edema Gastrointestinal: normal inspection, normal bowel sounds, non tender, soft, no guarding, no hernia Genitourinary: no CVA tenderness Musculoskeletal: normal inspection, back normal, normal range of motion Neurologic: normal inspection, alert, responsive, speech normal Psychiatric: depressed affect, anxious Skin: normal inspection, normal color, no rash Medical Decision Making Diagnostic Impression: Primary Impression: COPD exacerbation Additional Impression: Chest pain ER Course Patient presents emergency department today complaining of shortness of breath. Differential diagnoses include acute pneumonia, CHF, acute coronary syndrome, pneumothorax, asthma, COPD flare, just to name a few.Given the severity of the patient's presentation I felt this is a highly complex patient. This patient required extensive workup. Patient's exam consistent acute CHF or COPD. Patient was given respiratory treatments with improvement in symptoms. Case was discussed in detail with Dr. Ro. Patient will be admitted to his service further treatment. Labs Test 06/29/17 20:40 Urine Color Yellow Urine Appearance Clear Urine pH 6 (4.5-8.0) Urine Specific [place] 1.020 (1.005-1.035) Urine Protein Negative (NEGATIVE) Urine Glucose (UA) Negative (NEGATIVE) Urine Ketones Negative (NEGATIVE) Urine Occult Blood Negative (NEGATIVE) Urine Nitrite Negative (NEGATIVE) Urine Bilirubin Negative (NEGATIVE) Urine Urobilinogen 1 MG/DL (0.0-1.0) Urine Leukocyte Esterase 1+ (NEGATIVE) Urine RBC 0-2 /HPF (0 - 2) Urine WBC 2-4 /HPF (0 - 2) Urine Squamous Epithelial Cells Few /LPF (NONE/OCC) Urine Bacteria Few /HPF (NONE) Urine Mucus Few /LPF (NONE/OCC) EKG Diagnostic Results Rate: normal Rhythm: NSR ST Segments: no acute changes Rhythm Strip Diag. Results EP Interpretation: yes Rate: 80s Rhythm: NSR, no PVC's, no ectopy Chest X-Ray Diagnostic Results Chest X-Ray Diagnostic Results : Chest X-Ray Ordered: Yes # of Views/Limited/Complete: 1 View Indication: Chest Pain EP Interpretation: Yes Interpretation: no consolidation, no effusion, no pneumothorax, other - cardiomegaly Impression: Other - cardiomegaly Interpreting ER Provider: Electronically signed by Jared Iqbal MD Last Vital Signs Date Time Temp Pulse Resp B/P Pulse Ox O2 Delivery O2 Flow Rate FiO2 06/29/17 18:59 98.6 18 127/64 100 Nasal Cannula 2.0 28 06/29/17 18:12 81 Status: improved Disposition: ADMITTED INPATIENT Condition: Serious Referrals: LAMIN RO (PCP) JARED IQBAL M.D. Jun 29, 2017 21:50
--- NOTE | 2017-06-29 22:16 | History and Physical ---
History of Present Illness General Date patient seen: Jun 29, 2017 Reason for Hospitalization: Chest Pain Present Illness HPI 52 year old female with hx of morbid obesity, CHF, Asthma, COPD presented to emergency department today complaining of chest pain shortness breath the last 24 hours. She denies any leg pain leg swelling. She was diagnosed to have Pulmonary edema and respiratory distress and admitted to telemetry for further evaluation. Allergies: Coded Allergies: IODINE (Verified Allergy, Severe, Anaphylaxis, 05/05/17) Lettuce (Verified Allergy, Severe, Anaphylaxis, 06/24/15) SHELLFISH DERIVED (Verified Allergy, Severe, Anaphylaxis, 05/05/17) Medication History Scheduled Aspirin* (Aspir 81*), 81 MG ORAL DAILY, (Reported) Atorvastatin Calcium* (Lipitor*), 80 MG ORAL BEDTIME, (Reported) Docusate Sodium* (Colace*), 100 MG ORAL DAILY, (Reported) Furosemide* (Lasix*), 20 MG ORAL TWICE A DAY, (Reported) Levalbuterol Hcl (Xopenex*), Unknown Dose HHN Q4H, (Reported) Lisinopril (Lisinopril*), 20 MG ORAL DAILY, (Reported) Magnesium Oxide (Magnesium), 400 MG PO DAILY, (Reported) Metoprolol Tartrate* (Metoprolol Tartrate*), 25 MG ORAL EVERY 12 HOURS, ( Reported) Ranitidine Hcl* (Zantac*), 150 MG ORAL TWICE A DAY, (Reported) Sertraline Hcl* (Zoloft*), 200 MG ORAL DAILY, (Reported) Tiotropium [place]* (Spiriva*), 2 PUFF INH DAILY, (Reported) Scheduled PRN Beclomethasone Dipropionate 40MCG Oral Inh (Qvar 40*), 2 PUFFS INH for Shortness of Breath, (Reported) Diphenhydramine Hcl (Banophen), 50 MG PO DAILY PRN for Itching, (Reported) Ibuprofen* (Motrin*), 800 MG ORAL THREE TIMES A DAY PRN for Mild Pain (Pain Scale 1-3), (Reported) Nitroglycerin (Nitroglycerin), 0.4 MG SL DAILY PRN for For Pain, (Reported) Tramadol Hcl* (Ultram*), 50 MG ORAL Q8HR PRN for For Pain, (Reported) [Promethazine Hcl], 5 ML PO Q6HR PRN for For Cough, (Reported) Discontinued Medications Albuterol Sulfate (Ventolin Hfa), 1 PUFF INH EVERY 6 HOURS PRN for Shortness of Breath, (Reported) Discontinued Reason: Pt stopped taking med Clindamycin Hcl* (Clindamycin Hcl*), 150 MG ORAL FOUR TIMES A DAY Discontinued Reason: Therapy completed Patient History Healthcare decision maker Resuscitation status Advanced Directive on File Past Medical/Surgical History Past Medical/Surgical History: (1) History of smoking (2) Sleep apnea (3) HTN (hypertension) (4) Morbid obesity Review of Systems Constitutional: Reports: malaise Eye: Reports: no symptoms ENT: Reports: no symptoms Respiratory: Reports: orthopnea, shortness of breath Gastrointestinal: Reports: no symptoms Genitourinary: Reports: vag bleed/dc Musculoskeletal: Reports: no symptoms Physical Exam General Appearance: WD/WN, alert Lines, tubes and drains: peripheral HEENT: normocephalic, atraumatic Neck: non-tender, normal alignment Respiratory/Chest: lungs clear Breasts: no masses Cardiovascular/Chest: normal rate Abdomen: normal bowel sounds, soft Genitourinary/Rectal: normal genital exam Extremities: normal range of motion, trace edema Last 24 Hour Vital Signs Date Time Temp Pulse Resp B/P Pulse Ox O2 Delivery O2 Flow Rate FiO2 06/29/17 18:59 98.6 18 127/64 100 Nasal Cannula 2.0 28 06/29/17 18:28 98.6 18 119/60 100 Nasal Cannula 2.0 28 06/29/17 18:12 81 18 100 Nasal Cannula 2.0 28 06/29/17 17:17 74 16 95 Nasal Cannula 2.0 28 06/29/17 17:17 28 06/29/17 17:17 75 16 Nasal Cannula 2.0 28 06/29/17 16:16 98.6 87 24 119/60 96 Nasal Cannula 2.0 Laboratory Tests Test 06/29/17 20:40 06/29/17 21:35 Urine Color Yellow Urine Appearance Clear Urine pH 6 (4.5-8.0) Urine Specific [place] 1.020 (1.005-1.035) Urine Protein Negative (NEGATIVE) Urine Glucose (UA) Negative (NEGATIVE) Urine Ketones Negative (NEGATIVE) Urine Occult Blood Negative (NEGATIVE) Urine Nitrite Negative (NEGATIVE) Urine Bilirubin Negative (NEGATIVE) Urine Urobilinogen 1 MG/DL (0.0-1.0) H Urine Leukocyte Esterase 1+ (NEGATIVE) H Urine RBC 0-2 /HPF (0 - 2) Urine WBC 2-4 /HPF (0 - 2) Urine Squamous Epithelial Cells Few /LPF (NONE/OCC) Urine Bacteria Few /HPF (NONE) Urine Mucus Few /LPF (NONE/OCC) H White Blood Count Pending Red Blood Count Pending Hemoglobin Pending Hematocrit Pending Mean Corpuscular Volume Pending Mean Corpuscular Hemoglobin Pending Mean Corpuscular Hemoglobin Concent Pending Red Cell Distribution Width Pending Platelet Count Pending Mean Platelet Volume Pending Neutrophils (%) (Auto) Pending Lymphocytes (%) (Auto) Pending Monocytes (%) (Auto) Pending Eosinophils (%) (Auto) Pending Basophils (%) (Auto) Pending Prothrombin Time Pending Prothromb Time International Ratio Pending Activated Partial Thromboplast Time Pending Sodium Level Pending Potassium Level Pending Chloride Level Pending Carbon Dioxide Level Pending Blood Urea Nitrogen Pending Creatinine Pending Estimat Glomerular Filtration Rate Pending Glucose Level Pending Calcium Level Pending Total Bilirubin Pending Aspartate Amino Transf (AST/SGOT) Pending Alanine Aminotransferase (ALT/SGPT) Pending Alkaline Phosphatase Pending Total Creatine Kinase Pending Creatine Kinase MB Pending Troponin I Pending Pro-B-Type Natriuretic Peptide Pending Total Protein Pending Albumin Pending Globulin Pending Lipase Pending Height (Feet): 5 Height (Inches): 4.00 Weight (Pounds): 295 Medications Current Medications Medications (Trade) Dose Ordered Sig/May Route PRN Reason Start Time Stop Time Status Last Admin Dose Admin Acetaminophen (Tylenol) 650 mg Q4H PRN ORAL Fever 06/29/17 18:30 07/29/17 18:29 Albuterol/ Ipratropium (DuoNeb 0.5-3(2.5)mg/3ml) 3 ml EVERY 4 HOURS PRN HHN Shortness of Breath 06/29/17 18:30 07/04/17 18:29 Atorvastatin Calcium (Lipitor) 80 mg BEDTIME ORAL 06/29/17 21:00 07/29/17 20:59 Dextrose (Dextrose 50%) STAT PRN IV Hypoglycemia 06/29/17 18:30 07/29/17 18:29 Furosemide (Lasix) 40 mg EVERY 8 HOURS IV 06/29/17 22:00 07/29/17 21:59 Heparin Sodium (Porcine) (Heparin 5000 units/ml) 5,000 units EVERY 12 HOURS SUBQ 06/29/17 21:00 07/29/17 20:59 Lisinopril (Zestril) 10 mg DAILY ORAL 06/30/17 09:00 07/30/17 08:59 Ondansetron HCl (Zofran) 4 mg Q6H PRN IVP Nausea & Vomiting 06/29/17 18:30 07/29/17 18:29 Polyethylene Glycol (Miralax) 17 gm DAILYPRN PRN ORAL Constipation 06/29/17 18:30 07/29/17 18:29 Sertraline HCl (Zoloft) 200 mg DAILY ORAL 06/30/17 09:00 07/30/17 08:59 Temazepam (Restoril) 15 mg HSPRN PRN ORAL Insomnia 06/29/17 18:30 07/06/17 18:29 Assessment/Plan Problem List: (1) Acute exacerbation of CHF (congestive heart failure) ICD Codes: I50.9 - Acute exacerbation of congestive heart failure SNOMED: 86579507 (2) Respiratory failure, acute ICD Codes: J96.00 - Acute respiratory failure, unspecified whether with hypoxia or hypercapnia SNOMED: 96703641 (3) Sleep apnea ICD Codes: G47.30 - Sleep apnea, unspecified SNOMED: 65674451 (4) Diabetes mellitus ICD Codes: E11.9 - Type 2 diabetes mellitus without complications SNOMED: 36706294 (5) Morbid obesity ICD Codes: E66.01 - Morbid (severe) obesity due to excess calories SNOMED: 270066117 Assessment/Plan respiratory treatment diuretics echo f/u BNP dvt prophylaxis cardiology evaluation dietary consult LAMIN NEWTON Jun 29, 2017 22:16
[2017-06-29 22:42] LABS: BASOPHILS % (AUTO) 0.6 % (0.0-2.0); EOSINOPHILS % (AUTO) 2.1 % (0.0-3.0); LYMPHOCYTES % (AUTO) 15.1 % (20.0-45.0); MEAN CORPUSCULAR HEMOGLOBIN 23.4 PG (27.0-31.0); MEAN CORPUSCULAR HGB CONC 29.3 G/DL (32.0-36.0); MEAN CORPUSCULAR VOLUME 80 FL (80-99); MEAN PLATELET VOLUME 5.6 FL (6.5-10.1); MONOCYTES % (AUTO) 2.4 % (1.0-10.0); NEUTROPHILS % (AUTO) 79.8 % (45.0-75.0); PLATELET COUNT 278 K/UL (150-450); RED BLOOD COUNT 4.23 M/UL (4.20-5.40); RED CELL DISTRIBUTION WIDTH 19.8 % (11.6-14.8); WHITE BLOOD COUNT 10.5 K/UL (4.8-10.8)
[2017-06-29 22:47] LABS: TROPONIN I < 0.30 ng/mL (<=0.30)
[2017-06-29 22:48] LABS: INR 0.9 (0.9-1.1); PROTHROMBIN TIME 9.4 SEC (9.30-11.50)
[2017-06-29 22:51] VITALS: BP 129/68
[2017-06-29 22:52] LABS: ALANINE AMINOTRANSFERASE 7 U/L (3-33); ALBUMIN/GLOBULIN RATIO 1.2 (1.0-2.7); ANION GAP 10 (5-15); ASPARTATE AMINO TRANSFERASE 10 U/L (5-40); CALCIUM 8.8 mg/dL (8.6-10.2); CARBON DIOXIDE 38 mEQ/L (20-30); CHLORIDE 97 mEQ/L (98-107); CREATININE 0.7 mg/dL (0.5-0.9); GLOMERULAR FILTRATION RATE > 60 mL/min (>60); HEMOLYSIS 1; LIPASE 22 U/L (< 60); POTASSIUM 3.2 mEQ/L (3.4-4.9); SODIUM 145 mEQ/L (135-145); TOTAL PROTEIN 7.1 g/dL (6.6-8.7)
[2017-06-29 23:02] LABS: CKMB < 1.5 ng/mL (< 3.8)
[2017-06-29] MEDS ORDERED: Nitroglycerin Subl 0.4mg tab (Bottle Of 25) SL PRN (23:15)
[2017-06-30] VITALS (7 sets, daily range): BP systolic 119–146; BP diastolic 65–79
[2017-06-30] MEDS: Atorvastatin 80mg tab ORAL SCH ×2 (00:06→21:26)
[2017-06-30] MEDS: Heparin 5000 units/ml inj SUBQ SCH ×3 (00:10→21:25)
[2017-06-30 07:22] LABS: MEAN CORPUSCULAR HEMOGLOBIN 22.5 PG (27.0-31.0); MEAN CORPUSCULAR HGB CONC 28.3 G/DL (32.0-36.0); MEAN CORPUSCULAR VOLUME 79 FL (80-99); MEAN PLATELET VOLUME 5.6 FL (6.5-10.1); PLATELET COUNT 320 K/UL (150-450); RED BLOOD COUNT 4.56 M/UL (4.20-5.40); RED CELL DISTRIBUTION WIDTH 19.7 % (11.6-14.8); WHITE BLOOD COUNT 10.5 K/UL (4.8-10.8)
[2017-06-30 07:40] LABS: TROPONIN I < 0.30 ng/mL (<=0.30)
[2017-06-30 07:45] LABS: ANION GAP 12 (5-15); CALCIUM 9.1 mg/dL (8.6-10.2); CARBON DIOXIDE 37 mEQ/L (20-30); CHLORIDE 97 mEQ/L (98-107); CREATININE 0.7 mg/dL (0.5-0.9); GLOMERULAR FILTRATION RATE > 60 mL/min (>60); HEMOLYSIS 0; PHOSPHORUS 4.7 mg/dL (2.5-4.8); POTASSIUM 4.1 mEQ/L (3.4-4.9); SODIUM 146 mEQ/L (135-145)
[2017-06-30] MEDS: Norco 10mg/325mg tab ORAL PRN ×3 (08:02→20:06)
[2017-06-30] MEDS: Sertraline 100mg tab ORAL SCH (08:03)
[2017-06-30] MEDS: Lisinopril 2.5mg tab ORAL SCH (08:03)
[2017-06-30 08:21] LABS: EOSINOPHILS % (MANUAL) 1 % (0-3); LYMPHOCYTES % (MANUAL) 11 % (20-45); NEUTROPHILS % (MANUAL) 87 % (45-75); TOTAL CELLS COUNTED 100
[2017-06-30 08:22] LABS: BAND NEUTROPHILS % (MANUAL) 0 % (0-8); BASOPHILS % (MANUAL) 0 % (0-2); PLATELET ESTIMATE ADEQUATE; PLATELET MORPHOLOGY NORMAL
[2017-06-30 08:43] LABS: STOMATOCYTES 1+
[2017-06-30 08:44] LABS: OVALOCYTES 1+
[2017-06-30 08:46] LABS: ANISOCYTOSIS 2+; HYPOCHROMASIA 2+; MICROCYTES 1+
--- NOTE | 2017-06-30 10:19 | Diagnostic Imaging Report ---
Indication: Shortness of breath Technique: One view of the chest Comparison: 05/05/2017 Findings: The heart is enlarged. Bilateral pulmonary interstitial and alveolar edema appears slightly improved but still extensive. Pleural spaces appear clear Impression: Interim slight improvement but persistence of pulmonary interstitial and alveolar edema, over one day
--- NOTE | 2017-06-30 15:22 | Pulmonology Progress Note ---
Assessment/Plan Problems: (1) Acute exacerbation of CHF (congestive heart failure) (2) Respiratory failure, acute (3) Sleep apnea (4) Diabetes mellitus (5) Morbid obesity Assessment/Plan improving slightly change respiratory treament to standing order chec cxr and bnp in am watch electrolytes, because of lasix IV Subjective ROS Limited/Unobtainable: No Constitutional: Reports: no symptoms HEENT: Repors: no symptoms Respiratory: Reports: no symptoms Allergies: Coded Allergies: IODINE (Verified Allergy, Severe, Anaphylaxis, 05/05/17) Lettuce (Verified Allergy, Severe, Anaphylaxis, 06/24/15) SHELLFISH DERIVED (Verified Allergy, Severe, Anaphylaxis, 05/05/17) Objective Last 24 Hour Vital Signs Date Time Temp Pulse Resp B/P Pulse Ox O2 Delivery O2 Flow Rate FiO2 06/30/17 13:57 97.2 06/30/17 13:20 79 20 100 Nasal Cannula 3.0 32 06/30/17 13:19 76 20 96 Nasal Cannula 3.0 32 06/30/17 13:19 32 06/30/17 12:00 94 06/30/17 11:52 97.2 108 20 138/71 94 Nasal Cannula 3.0 06/30/17 08:03 146/79 06/30/17 08:00 117 06/30/17 08:00 97.5 109 20 146/79 93 Nasal Cannula 3.0 06/30/17 07:41 98 Nasal Cannula 2.0 06/30/17 07:41 Nasal Cannula 2.0 06/30/17 07:41 84 20 06/30/17 04:00 112 06/30/17 04:00 97.7 93 18 119/65 93 Nasal Cannula 3.0 06/30/17 01:30 97.6 92 18 120/65 94 Nasal Cannula 3.0 06/30/17 01:05 98.6 86 25 139/72 95 Nasal Cannula 2.0 06/30/17 00:30 98.3 86 25 139/72 95 Nasal Cannula 2.0 06/29/17 23:17 128/64 06/29/17 22:51 98.4 80 18 129/68 94 Nasal Cannula 2.0 06/29/17 21:00 Nasal Cannula 2.0 06/29/17 21:00 99 Nasal Cannula 2.0 06/29/17 20:50 98.6 84 20 136/76 92 Nasal Cannula 2.0 28 06/29/17 20:24 98.6 06/29/17 19:20 87 24 Nasal Cannula 2.0 28 06/29/17 18:59 98.6 18 127/64 100 Nasal Cannula 2.0 28 06/29/17 18:28 98.6 18 119/60 100 Nasal Cannula 2.0 28 06/29/17 18:12 81 18 100 Nasal Cannula 2.0 28 06/29/17 17:17 74 16 95 Nasal Cannula 2.0 28 06/29/17 17:17 28 06/29/17 17:17 75 16 Nasal Cannula 2.0 28 06/29/17 16:16 98.6 87 24 119/60 96 Nasal Cannula 2.0 Intake and Output 06/29/17 06/30/17 19:00 07:00 Intake Total 120 ml Output Total 600 ml Balance -480 ml Intake Oral 120 ml Other 0 ml Output Urine Total 600 ml # Voids 3 General Appearance: WD/WN, no acute distress HEENT: normocephalic, atraumatic Respiratory/Chest: chest wall non-tender, lungs clear, normal breath sounds Breasts: no masses Cardiovascular: normal peripheral pulses Abdomen: normal bowel sounds, soft, non tender Genitourinary: normal external genitalia Extremities: no clubbing Skin: no rash Laboratory Tests 06/29/17 20:40: Urine Color Yellow, Urine Appearance Clear, Urine pH 6, Urine Specific [place] 1.020, Urine Protein Negative, Urine Glucose (UA) Negative, Urine Ketones Negative, Urine Occult Blood Negative, Urine Nitrite Negative, Urine Bilirubin Negative, Urine Urobilinogen 1H, Urine Leukocyte Esterase 1+H, Urine RBC 0-2, Urine WBC 2-4, Urine Squamous Epithelial Cells Few, Urine Bacteria Few, Urine Mucus FewH 06/29/17 21:35: White Blood Count 10.5, Red Blood Count 4.23, Hemoglobin 9.9L, Hematocrit 33.7L , Mean Corpuscular Volume 80, Mean Corpuscular Hemoglobin 23.4L, Mean Corpuscular Hemoglobin Concent 29.3L, Red Cell Distribution Width 19.8H, Platelet Count 278, Mean Platelet Volume 5.6L, Neutrophils (%) (Auto) 79.8H, Lymphocytes (%) (Auto) 15.1L, Monocytes (%) (Auto) 2.4, Eosinophils (%) (Auto) 2.1, Basophils (%) (Auto) 0.6, Prothrombin Time 9.4, Prothromb Time International Ratio 0.9, Activated Partial Thromboplast Time 26, Sodium Level 145, Potassium Level 3.2L, Chloride Level 97L, Carbon Dioxide Level 38H, Anion Gap 10, Blood Urea Nitrogen 8, Creatinine 0.7, Estimat Glomerular Filtration Rate > 60, Glucose Level 122H, Calcium Level 8.8, Total Bilirubin 0.3, Aspartate Amino Transf (AST/SGOT) 10, Alanine Aminotransferase (ALT/SGPT) 7, Alkaline Phosphatase 66, Total Creatine Kinase 38, Creatine Kinase MB < 1.5, Creatine Kinase MB Relative Index , Troponin I < 0.30, Pro-B-Type Natriuretic Peptide 380H, Total Protein 7.1, Albumin 4.0, Globulin 3.1, Albumin/Globulin Ratio 1.2, Lipase 22 /01/15 06:30: White Blood Count 10.5, Red Blood Count 4.56, Hemoglobin 10.2L, Hematocrit 36.1L , Mean Corpuscular Volume 79L, Mean Corpuscular Hemoglobin 22.5L, Mean Corpuscular Hemoglobin Concent 28.3L, Red Cell Distribution Width 19.7H, Platelet Count 320, Mean Platelet Volume 5.6L, Neutrophils (%) (Auto) , Lymphocytes (%) (Auto) , Monocytes (%) (Auto) , Eosinophils (%) (Auto) , Basophils (%) (Auto) , Sodium Level 146H, Potassium Level 4.1, Chloride Level 97L, Carbon Dioxide Level 37H, Anion Gap 12, Blood Urea Nitrogen 10, Creatinine 0.7, Estimat Glomerular Filtration Rate > 60, Glucose Level 146H, Calcium Level 9.1, Troponin I < 0.30, Albumin 4.3, Differential Total Cells Counted 100, Neutrophils % (Manual) 87H, Lymphocytes % (Manual) 11L, Monocytes % (Manual) 1, Eosinophils % (Manual) 1, Basophils % (Manual) 0, Band Neutrophils 0, Platelet Estimate Adequate, Platelet Morphology Normal, Hypochromasia 2+, Anisocytosis 2+ , Microcytosis 1+, Ovalocytes 1+, Stomatocytes 1+, Phosphorus Level 4.7 Current Medications Medications (Trade) Dose Ordered Sig/May Route PRN Reason Start Time Stop Time Status Last Admin Dose Admin Acetaminophen (Tylenol) 650 mg Q4H PRN ORAL Mild Pain/Temp > 100.5 06/30/17 02:00 07/30/17 01:59 06/30/17 02:02 Acetaminophen/ Hydrocodone Bitart ([place] 10/325) 1 ea Q4H PRN ORAL PAIN 4-10 06/30/17 07:00 07/07/17 06:59 06/30/17 12:59 Albuterol/ Ipratropium (DuoNeb 0.5-3(2.5)mg/3ml) 3 ml EVERY 4 HOURS HHN 06/30/17 17:00 07/05/17 16:59 UNV Atorvastatin Calcium (Lipitor) 80 mg BEDTIME ORAL 06/29/17 21:00 07/29/17 20:59 06/30/17 00:06 Dextrose (Dextrose 50%) STAT PRN IV Hypoglycemia 06/29/17 18:30 07/29/17 18:29 Furosemide (Lasix) 40 mg EVERY 8 HOURS IV 06/29/17 22:00 07/29/17 21:59 06/30/17 13:50 Heparin Sodium (Porcine) (Heparin 5000 units/ml) 5,000 units EVERY 12 HOURS SUBQ 06/29/17 21:00 07/29/17 20:59 06/30/17 08:04 Lisinopril (Zestril) 10 mg DAILY ORAL 06/30/17 09:00 07/30/17 08:59 06/30/17 08:03 Nitroglycerin (Ntg) 0.4 mg Q5M PRN SL Prn Chest Pain 06/29/17 23:15 07/29/17 23:14 06/29/17 23:17 Ondansetron HCl (Zofran) 4 mg Q6H PRN IVP Nausea & Vomiting 06/29/17 18:30 07/29/17 18:29 Polyethylene Glycol (Miralax) 17 gm DAILYPRN PRN ORAL Constipation 06/29/17 18:30 07/29/17 18:29 Sertraline HCl (Zoloft) 200 mg DAILY ORAL 06/30/17 09:00 07/30/17 08:59 06/30/17 08:03 Temazepam (Restoril) 15 mg HSPRN PRN ORAL Insomnia 06/29/17 18:30 07/06/17 18:29 LAMIN NEWTON Jun 30, 2017 15:22
--- NOTE | 2017-06-30 15:24 | Cardiology Report ---
APPROVED REPORT EXAM: Two-dimensional and M-mode echocardiogram with Doppler and color Doppler. INDICATION Left Ventricular Function M-Mode DIMENSIONS IVSd1.8 (0.7-1.1cm)Left Atrium (MM)5.2 (1.6-4.0cm) LVDd5.1 (3.5-5.6cm)Aortic Root3.1 (2.0-3.7cm) PWd1.7 (0.7-1.1cm)Aortic Cusp Exc.2.5 (1.5-2.0cm) LVDs3.2 (2.5-4.0cm) PWs2.8 cm Other Information Technically limited study due to body habitus. Technically difficult study due to poor acoustic windows. Study quality precludes accurate assessment of regional wall motion. Normal left ventricular chamber size, systolic function and wall motion to extent visualized. Left ventricular ejection fraction estimated to be 55 %. Mild left ventricular hypertrophy. Anterior Echo-free space, may be due to pericardial fat or effusion. Mild left atrial enlargement. Mild right ventricular enlargement. Right atrial chamber size is within normal limits. Mild focal aortic valve sclerosis with adequate cusp excursion. Mild thickened mitral valve leaflets with normal excursion. Mild mitral annulus and aortic root calcification. Pulmonic valve not well visualized. Normal tricuspid valve structure. IVC dilated at 2.4 cm with physiologic collapse. A color flow and spectral Doppler study was performed and revealed: No aortic regurgitation. Trace mitral regurgitation. Mitral inflow velocities indicates possible pseudo normalization pattern implying significant left ventricular diastolic dysfunction (Grade II). Trace tricuspid regurgitation. Tricuspid systolic velocities suggests peak right ventricular systolic pressure of 24 mmHg. Trace pulmonic regurgitation present.
--- NOTE | 2017-06-30 16:07 | Cardiology Report ---
APPROVED REPORT EKG Measurement Heart [id number] Normal sinus rhythm T wave abnormality, consider anterolateral ischemia Abnormal ECG
--- NOTE | 2017-06-30 16:10 | Diagnostic Imaging Report ---
Indication: DYSPNEA Technique: One view of the chest Comparison: 06/29/2017 Findings: Body habitus limits evaluation. The heart is enlarged. Diffuse interstitial and airspace disease persists, unchanged. Pleural spaces remain clear. Findings are unchanged Impression: Unchanged, over one day, findings as above.
--- NOTE | 2017-06-30 19:23 | Diagnostic Imaging Report ---
APPROVED REPORT CPT Code: 80457 Present Symptoms Shortness of breath Comments: Technically difficult study due to vessel depth (mid-thigh and calf area). Risk Factors Obesity Bed Rest BILATERAL: Imaging reveals a patent deep venous system bilaterally. There is no evidence of thrombus within the femoral, popliteal or tibial segments. The greater saphenous veins are also within normal limits. Doppler indicates normal spontaneous flow within these segments.
[2017-06-30] MEDS: DuoNeb 0.5-3(2.5)mg/3ml neb HHN SCH ×2 (19:38→23:40)
[2017-07-01] VITALS: BP 96/57
[2017-07-01] MEDS: DuoNeb 0.5-3(2.5)mg/3ml neb HHN SCH ×6 (03:43→23:14)
[2017-07-01 04:00] VITALS: BP 106/51
[2017-07-01] MEDS: Norco 10mg/325mg tab ORAL PRN ×3 (04:59→20:19)
[2017-07-01 07:16] LABS: BASOPHILS % (AUTO) 0.8 % (0.0-2.0); LYMPHOCYTES % (AUTO) 35.9 % (20.0-45.0); MEAN CORPUSCULAR HEMOGLOBIN 22.3 PG (27.0-31.0); MEAN CORPUSCULAR HGB CONC 27.9 G/DL (32.0-36.0); MEAN CORPUSCULAR VOLUME 80 FL (80-99); MEAN PLATELET VOLUME 7.3 FL (6.5-10.1); NEUTROPHILS % (AUTO) 57.3 % (45.0-75.0); PLATELET COUNT 344 K/UL (150-450); RED BLOOD COUNT 4.61 M/UL (4.20-5.40); RED CELL DISTRIBUTION WIDTH 20.3 % (11.6-14.8); WHITE BLOOD COUNT 10.2 K/UL (4.8-10.8)
[2017-07-01 08:01] LABS: TROPONIN I < 0.30 ng/mL (<=0.30)
[2017-07-01 08:02] LABS: ALANINE AMINOTRANSFERASE 8 U/L (3-33); ALBUMIN/GLOBULIN RATIO 1.4 (1.0-2.7); ASPARTATE AMINO TRANSFERASE 11 U/L (5-40); CALCIUM 9.2 mg/dL (8.6-10.2); CHLORIDE 92 mEQ/L (98-107); CREATININE 0.8 mg/dL (0.5-0.9); GLOMERULAR FILTRATION RATE > 60 mL/min (>60); HEMOLYSIS 1; POTASSIUM 3.3 mEQ/L (3.4-4.9); SODIUM 143 mEQ/L (135-145); TOTAL PROTEIN 7.5 g/dL (6.6-8.7)
[2017-07-01 08:13] LABS: ANION GAP 9 (5-15)
[2017-07-01 08:17] VITALS: BP 114/58
[2017-07-01 08:31] LABS: CARBON DIOXIDE 42 mEQ/L (20-30)
[2017-07-01] MEDS: Sertraline 100mg tab ORAL SCH (08:39)
[2017-07-01] MEDS: Lisinopril 2.5mg tab ORAL SCH (08:40)
[2017-07-01] MEDS: Heparin 5000 units/ml inj SUBQ SCH ×2 (08:41→20:57)
[2017-07-01 12:53] VITALS: BP 127/62
--- NOTE | 2017-07-01 14:03 | Pulmonology Progress Note ---
Assessment/Plan Problems: (1) Acute exacerbation of CHF (congestive heart failure) (2) Respiratory failure, acute (3) Sleep apnea (4) Diabetes mellitus (5) Morbid obesity Assessment/Plan improving, slowlyslightly change respiratory treament to standing order watch electrolytes, because of lasix IV titrate fio2 awaiting cardio consult echo reviewed dvt prophylaxis Subjective ROS Limited/Unobtainable: No Interval Events: slightly better Allergies: Coded Allergies: IODINE (Verified Allergy, Severe, Anaphylaxis, 05/05/17) Lettuce (Verified Allergy, Severe, Anaphylaxis, 06/24/15) SHELLFISH DERIVED (Verified Allergy, Severe, Anaphylaxis, 05/05/17) Objective Last 24 Hour Vital Signs Date Time Temp Pulse Resp B/P Pulse Ox O2 Delivery O2 Flow Rate FiO2 07/01/17 12:53 97.9 100 20 127/62 93 Nasal Cannula 3.0 07/01/17 12:00 87 07/01/17 11:22 85 24 98 Nasal Cannula 3.0 07/01/17 11:14 83 22 99 Nasal Cannula 3.0 07/01/17 09:26 96 07/01/17 08:40 114/58 07/01/17 08:17 97.7 92 20 114/58 94 Nasal Cannula 3.0 07/01/17 07:22 86 22 98 Nasal Cannula 3.0 07/01/17 07:12 Nasal Cannula 3.0 07/01/17 07:12 86 24 98 Nasal Cannula 3.0 07/01/17 07:11 98 Nasal Cannula 3.0 07/01/17 04:00 89 07/01/17 04:00 97.8 85 23 106/51 91 Nasal Cannula 3.0 07/01/17 03:51 88 24 94 Nasal Cannula 3.0 32 07/01/17 03:41 91 25 91 Nasal Cannula 3.0 32 07/01/17 03:41 32 07/01/17 00:00 89 07/01/17 00:00 97.9 83 24 96/57 95 Nasal Cannula 3.0 06/30/17 23:59 82 22 96 Nasal Cannula 3.0 32 06/30/17 23:39 32 06/30/17 23:39 80 24 95 Nasal Cannula 3.0 32 06/30/17 20:00 97.9 75 18 128/75 94 Nasal Cannula 3.0 06/30/17 20:00 89 06/30/17 19:46 62 18 98 Nasal Cannula 3.0 32 06/30/17 19:40 Nasal Cannula 3.0 32 06/30/17 19:35 95 Nasal Cannula 3.0 32 06/30/17 19:35 32 06/30/17 19:34 77 24 95 Nasal Cannula 3.0 32 06/30/17 16:00 96 06/30/17 15:48 97.7 100 22 126/69 94 Nasal Cannula 3.0 Intake and Output 06/30/17 07/01/17 19:00 07:00 Intake Total 360 ml Output Total 750 ml Balance -390 ml Intake Oral 360 ml Output Urine Total 750 ml # Voids 6 General Appearance: WD/WN HEENT: normocephalic, atraumatic Respiratory/Chest: chest wall non-tender, lungs clear Breasts: no masses Cardiovascular: normal peripheral pulses, normal rate Abdomen: normal bowel sounds, soft, non tender Genitourinary: normal external genitalia Extremities: no cyanosis Microbiology Date/Time Source Procedure Growth Status 06/30/17 06:40 Blood Blood Culture - Preliminary NO GROWTH AFTER 24 HOURS Resulted 06/30/17 06:30 Blood Blood Culture - Preliminary NO GROWTH AFTER 24 HOURS Resulted Laboratory Tests 07/01/17 05:25: White Blood Count 10.2, Red Blood Count 4.61, Hemoglobin 10.3L, Hematocrit 36.9L , Mean Corpuscular Volume 80, Mean Corpuscular Hemoglobin 22.3L, Mean Corpuscular Hemoglobin Concent 27.9L, Red Cell Distribution Width 20.3H, Platelet Count 344, Mean Platelet Volume 7.3, Neutrophils (%) (Auto) 57.3, Lymphocytes (%) (Auto) 35.9, Monocytes (%) (Auto) 5.0, Eosinophils (%) (Auto) 1.0, Basophils (%) (Auto) 0.8, Sodium Level 143, Potassium Level 3.3L, Chloride Level 92L, Carbon Dioxide Level 42*H, Anion Gap 9, Blood Urea Nitrogen 14, Creatinine 0.8, Estimat Glomerular Filtration Rate > 60, Glucose Level 98, Calcium Level 9.2, Total Bilirubin 0.3, Aspartate Amino Transf (AST/SGOT) 11, Alanine Aminotransferase (ALT/SGPT) 8, Alkaline Phosphatase 67, Troponin I < 0.30, Pro-B-Type Natriuretic Peptide 196H, Total Protein 7.5, Albumin 4.4, Globulin 3.1, Albumin/Globulin Ratio 1.4 Current Medications Medications (Trade) Dose Ordered Sig/May Route PRN Reason Start Time Stop Time Status Last Admin Dose Admin Acetaminophen (Tylenol) 650 mg Q4H PRN ORAL Mild Pain/Temp > 100.5 06/30/17 02:00 07/30/17 01:59 06/30/17 02:02 Acetaminophen/ Hydrocodone Bitart ([place] 10/325) 1 ea Q4H PRN ORAL PAIN 4-10 06/30/17 07:00 07/07/17 06:59 07/01/17 04:59 Albuterol/ Ipratropium (DuoNeb 0.5-3(2.5)mg/3ml) 3 ml Q4HRT HHN 06/30/17 19:00 07/05/17 18:59 07/01/17 11:13 Atorvastatin Calcium (Lipitor) 80 mg BEDTIME ORAL 06/29/17 21:00 07/29/17 20:59 06/30/17 21:26 Dextrose (Dextrose 50%) STAT PRN IV Hypoglycemia 06/29/17 18:30 07/29/17 18:29 Furosemide (Lasix) 40 mg EVERY 8 HOURS IV 06/29/17 22:00 07/29/17 21:59 07/01/17 05:40 Heparin Sodium (Porcine) (Heparin 5000 units/ml) 5,000 units EVERY 12 HOURS SUBQ 06/29/17 21:00 07/29/17 20:59 07/01/17 08:41 Lisinopril (Zestril) 10 mg DAILY ORAL 06/30/17 09:00 07/30/17 08:59 07/01/17 08:40 Nitroglycerin (Ntg) 0.4 mg Q5M PRN SL Prn Chest Pain 06/29/17 23:15 07/29/17 23:14 06/29/17 23:17 Ondansetron HCl (Zofran) 4 mg Q6H PRN IVP Nausea & Vomiting 06/29/17 18:30 07/29/17 18:29 Polyethylene Glycol (Miralax) 17 gm DAILYPRN PRN ORAL Constipation 06/29/17 18:30 07/29/17 18:29 Sertraline HCl (Zoloft) 200 mg DAILY ORAL 06/30/17 09:00 07/30/17 08:59 07/01/17 08:39 Temazepam (Restoril) 15 mg HSPRN PRN ORAL Insomnia 06/29/17 18:30 07/06/17 18:29 LAMIN NEWTON Jul 01, 2017 14:03
--- NOTE | 2017-07-01 14:46 | Diagnostic Imaging Report ---
Indication: Dyspnea Comparison: 06/30/2017 A single view chest radiograph was obtained. Findings: Mild pulmonary venous congestion and interstitial edema demonstrated with cardiomegaly. The findings have markedly improved since last exam. Impression: Interstitial pulmonary edema
[2017-07-01 15:50] VITALS: BP 115/62
[2017-07-01 20:00] VITALS: BP 110/67
[2017-07-01] MEDS: Atorvastatin 80mg tab ORAL SCH (20:55)
[2017-07-02] VITALS (7 sets, daily range): BP systolic 93–147; BP diastolic 47–64
--- NOTE | 2017-07-02 01:15 | Consultation ---
DATE OF CONSULTATION: 07/01/2017 HISTORY OF PRESENT ILLNESS: This is a 52-year-old female with obesity, CHF, asthma, COPD, who has been admitted to the hospital due to chest pain and shortness of breath. The patient was asleep. The family member was at bedside. Per the patient, also has a history of depression and anxiety. She appears to be confused and a poor historian. Has difficulty staying up and has waxing and waning consciousness. PAST PSYCHIATRIC HISTORY: She has been diagnosed with depression and anxiety in the past. PAST MEDICAL HISTORY: Significant for hyperlipidemia, obesity, hypertension, and COPD. ALLERGIES: Includes iodine and shellfish. SUBSTANCE ABUSE HISTORY: The patient has no history of illicit drug use. MENTAL STATUS EXAMINATION: The patient was asleep, arousable, was alert and oriented to time, self, place. Mood was neutral. Affect is constricted. Congruent mood. Thought process is concrete. Thought content, no suicidal or homicidal ideation. ASSESSMENT: AXIS I Major depressive disorder, rule out delirium. AXIS II Deferred. AXIS III As above. AXIS IV Moderate. AXIS V 50. PLAN: 1. The patient will be continued on Zoloft 200 mg in the morning. 2. We will continue to follow and readjust the medication. Gabe Gordon M.D. DR: Bev JOB#: [id number] CC:
[2017-07-02] MEDS: DuoNeb 0.5-3(2.5)mg/3ml neb HHN SCH ×6 (03:35→23:17)
[2017-07-02 06:42] LABS: BASOPHILS % (AUTO) 0.9 % (0.0-2.0); EOSINOPHILS % (AUTO) 3.3 % (0.0-3.0); LYMPHOCYTES % (AUTO) 28.8 % (20.0-45.0); MEAN CORPUSCULAR HEMOGLOBIN 22.9 PG (27.0-31.0); MEAN CORPUSCULAR HGB CONC 28.8 G/DL (32.0-36.0); MEAN CORPUSCULAR VOLUME 80 FL (80-99); MEAN PLATELET VOLUME 6.1 FL (6.5-10.1); MONOCYTES % (AUTO) 6.5 % (1.0-10.0); NEUTROPHILS % (AUTO) 60.5 % (45.0-75.0); PLATELET COUNT 297 K/UL (150-450); RED BLOOD COUNT 4.61 M/UL (4.20-5.40); WHITE BLOOD COUNT 6.9 K/UL (4.8-10.8)
[2017-07-02 07:13] LABS: ALANINE AMINOTRANSFERASE 9 U/L (3-33); ALBUMIN/GLOBULIN RATIO 1.4 (1.0-2.7); ASPARTATE AMINO TRANSFERASE 10 U/L (5-40); CALCIUM 9.3 mg/dL (8.6-10.2); CHLORIDE 91 mEQ/L (98-107); CREATININE 0.6 mg/dL (0.5-0.9); GLOMERULAR FILTRATION RATE > 60 mL/min (>60); HEMOLYSIS 4; POTASSIUM 3.3 mEQ/L (3.4-4.9); SODIUM 143 mEQ/L (135-145); TOTAL PROTEIN 7.2 g/dL (6.6-8.7)
[2017-07-02 07:25] LABS: ANION GAP 9 (5-15)
[2017-07-02 07:37] LABS: CARBON DIOXIDE 43 mEQ/L (20-30)
[2017-07-02] MEDS ORDERED: acetaZOLAMIDE 500mg Inj IVP SCH (09:00)
[2017-07-02] MEDS: Sertraline 100mg tab ORAL SCH (09:50)
[2017-07-02] MEDS: Lisinopril 2.5mg tab ORAL SCH (09:50)
[2017-07-02] MEDS: Heparin 5000 units/ml inj SUBQ SCH ×2 (09:51→20:19)
[2017-07-02] MEDS: Norco 10mg/325mg tab ORAL PRN ×3 (12:06→22:40)
[2017-07-02] MEDS ORDERED: D5W IVPB SCH (14:00)
[2017-07-02] MEDS ORDERED: ACETAZOLAMIDE IVPB SCH (14:00)
[2017-07-02] MEDS: D5W IVPB SCH (14:28)
[2017-07-02] MEDS: ACETAZOLAMIDE IVPB SCH (14:28)
--- NOTE | 2017-07-02 17:56 | Pulmonology Progress Note ---
Assessment/Plan Problems: (1) Acute exacerbation of CHF (congestive heart failure) (2) Respiratory failure, acute (3) Sleep apnea (4) Diabetes mellitus (5) Morbid obesity Assessment/Plan improving, slowly slightly change respiratory treament to standing order watch electrolytes, because of lasix IV titrate fio2 awaiting cardio consult echo reviewed dvt prophylaxis diamox added because of rising CO2 Subjective ROS Limited/Unobtainable: No Constitutional: Reports: no symptoms HEENT: Repors: no symptoms Respiratory: Reports: no symptoms Allergies: Coded Allergies: IODINE (Verified Allergy, Severe, Anaphylaxis, 05/05/17) Lettuce (Verified Allergy, Severe, Anaphylaxis, 06/24/15) SHELLFISH DERIVED (Verified Allergy, Severe, Anaphylaxis, 05/05/17) Objective Last 24 Hour Vital Signs Date Time Temp Pulse Resp B/P Pulse Ox O2 Delivery O2 Flow Rate FiO2 07/02/17 15:34 97.9 77 18 123/56 98 Nasal Cannula 2.0 07/02/17 15:27 Nasal Cannula 2.0 07/02/17 15:27 Nasal Cannula 2.0 07/02/17 12:00 94 07/02/17 11:37 96.8 85 18 113/47 96 Nasal Cannula 2.0 07/02/17 11:34 85 20 100 Nasal Cannula 2.0 07/02/17 11:24 32 07/02/17 11:23 89 20 98 Nasal Cannula 2.0 07/02/17 09:50 147/52 07/02/17 08:00 81 07/02/17 07:57 92 22 100 Nasal Cannula 2.0 07/02/17 07:48 32 07/02/17 07:47 97.7 93 18 147/52 100 Nasal Cannula 2.0 07/02/17 07:47 22 20 94 Nasal Cannula 2.0 07/02/17 07:46 Nasal Cannula 2.0 07/02/17 07:45 94 Nasal Cannula 2.0 07/02/17 05:48 97.1 91 19 142/64 95 Room Air 07/02/17 04:08 97.1 91 19 142/64 95 Endotracheal Tube 07/02/17 04:00 83 07/02/17 03:51 81 24 99 Nasal Cannula 2.0 07/02/17 03:36 32 07/02/17 03:35 88 24 96 Nasal Cannula 2.0 07/02/17 00:47 83 22 97 Facial 30 07/02/17 00:00 96.6 86 19 119/64 95 Endotracheal Tube 07/02/17 00:00 83 07/01/17 23:34 89 24 94 Nasal Cannula 2.0 07/01/17 23:14 85 24 95 Nasal Cannula 2.0 07/01/17 23:14 32 07/01/17 20:00 83 07/01/17 20:00 97.0 85 18 110/67 91 Nasal Cannula 2.0 32 07/01/17 19:30 91 24 93 Nasal Cannula 2.0 07/01/17 19:25 32 07/01/17 19:25 91 24 93 Nasal Cannula 2.0 07/01/17 19:24 93 Nasal Cannula 2.0 07/01/17 19:24 Nasal Cannula 2.0 Intake and Output 07/01/17 07/02/17 19:00 07:00 Intake Total 600 ml 60 ml Output Total 950 ml 1200 ml Balance -350 ml -1140 ml Intake Oral 600 ml 60 ml Output Urine Total 950 ml 1200 ml General Appearance: WD/WN HEENT: normocephalic, atraumatic Respiratory/Chest: chest wall non-tender, lungs clear Cardiovascular: normal peripheral pulses, normal rate Abdomen: normal bowel sounds, soft, non tender Microbiology Date/Time Source Procedure Growth Status 06/30/17 06:40 Blood Blood Culture - Preliminary NO GROWTH AFTER 24 HOURS Resulted 06/30/17 06:30 Blood Blood Culture - Preliminary NO GROWTH AFTER 24 HOURS Resulted Laboratory Tests 07/02/17 05:50: White Blood Count 6.9, Red Blood Count 4.61, Hemoglobin 10.5L, Hematocrit 36.7L , Mean Corpuscular Volume 80, Mean Corpuscular Hemoglobin 22.9L, Mean Corpuscular Hemoglobin Concent 28.8L, Red Cell Distribution Width 20.0H, Platelet Count 297, Mean Platelet Volume 6.1L, Neutrophils (%) (Auto) 60.5, Lymphocytes (%) (Auto) 28.8, Monocytes (%) (Auto) 6.5, Eosinophils (%) (Auto) 3.3H, Basophils (%) (Auto) 0.9, Sodium Level 143, Potassium Level 3.3L, Chloride Level 91L, Carbon Dioxide Level 43*H, Anion Gap 9, Blood Urea Nitrogen 11, Creatinine 0.6, Estimat Glomerular Filtration Rate > 60, Glucose Level 116H , Calcium Level 9.3, Total Bilirubin 0.3, Aspartate Amino Transf (AST/SGOT) 10, Alanine Aminotransferase (ALT/SGPT) 9, Alkaline Phosphatase 63, Pro-B-Type Natriuretic Peptide 35, Total Protein 7.2, Albumin 4.3, Globulin 2.9, Albumin/ Globulin Ratio 1.4 Current Medications Medications (Trade) Dose Ordered Sig/May Route PRN Reason Start Time Stop Time Status Last Admin Dose Admin Acetaminophen (Tylenol) 650 mg Q4H PRN ORAL Mild Pain/Temp > 100.5 06/30/17 02:00 07/30/17 01:59 06/30/17 02:02 Acetaminophen/ Hydrocodone Bitart ([place] 10/325) 1 ea Q4H PRN ORAL PAIN 4-10 06/30/17 07:00 07/07/17 06:59 07/02/17 12:06 Acetazolamide/ Dextrose (Diamox 500mg Inj/D5W) 55 ml @ 110 mls/hr DAILY IVPB 07/02/17 14:00 07/04/17 09:29 07/02/17 14:28 Albuterol/ Ipratropium 3 ml 3 ml Q4HRT HHN 06/30/17 19:00 07/05/17 18:59 07/02/17 11:30 Atorvastatin Calcium (Lipitor) 80 mg BEDTIME ORAL 06/29/17 21:00 07/29/17 20:59 07/01/17 20:55 Dextrose (Dextrose 50%) STAT PRN IV Hypoglycemia 06/29/17 18:30 07/29/17 18:29 Furosemide (Lasix) 40 mg EVERY 8 HOURS IV 06/29/17 22:00 07/29/17 21:59 07/02/17 14:29 Heparin Sodium (Porcine) (Heparin 5000 units/ml) 5,000 units EVERY 12 HOURS SUBQ 06/29/17 21:00 07/29/17 20:59 07/02/17 09:51 Lisinopril (Zestril) 10 mg DAILY ORAL 07/03/17 09:00 07/30/17 08:59 Nitroglycerin (Ntg) 0.4 mg Q5M PRN SL Prn Chest Pain 06/29/17 23:15 07/29/17 23:14 06/29/17 23:17 Ondansetron HCl (Zofran) 4 mg Q6H PRN IVP Nausea & Vomiting 06/29/17 18:30 07/29/17 18:29 Polyethylene Glycol (Miralax) 17 gm DAILYPRN PRN ORAL Constipation 06/29/17 18:30 07/29/17 18:29 Sertraline HCl (Zoloft) 200 mg DAILY ORAL 06/30/17 09:00 07/30/17 08:59 07/02/17 09:50 Temazepam (Restoril) 15 mg HSPRN PRN ORAL Insomnia 06/29/17 18:30 07/06/17 18:29 LAMIN NEWTON Jul 02, 2017 17:56
[2017-07-02] MEDS: Atorvastatin 80mg tab ORAL SCH (20:15)
--- NOTE | 2017-07-02 23:30 | Progress Note ---
DATE: 07/02/2017 SUBJECTIVE: The patient is improving. The patient still has been complaining of fatigue and drowsiness. There has not been any agitation. She has cognitive impairment, depressed mood, anhedonia, worthlessness, and hopelessness. MENTAL STATUS EXAMINATION: The patient is alert and oriented to time, self, place, and situation she is in. Mood is depressed. Affect is constricted. Congruent with mood. Thought process is concrete. Thought content, no suicidal or homicidal ideation. ASSESSMENT: Depression. PLAN: 1. The patient will be continued on current medication. 2. Provide the patient with supportive therapy and reality orientation. Gabe Gordon M.D. DR: Barbi JOB#: [id number] CC:
[2017-07-03] VITALS: BP 102/58
[2017-07-03] MEDS: DuoNeb 0.5-3(2.5)mg/3ml neb HHN SCH ×6 (03:00→23:08)
[2017-07-03] MEDS: Norco 10mg/325mg tab ORAL PRN ×3 (03:46→20:30)
[2017-07-03 04:00] VITALS: BP 107/60
[2017-07-03 08:00] VITALS: BP 106/53
[2017-07-03] MEDS: Lisinopril 10mg tab ORAL SCH (08:26)
[2017-07-03] MEDS: Sertraline 100mg tab ORAL SCH (08:26)
[2017-07-03] MEDS: D5W IVPB SCH (08:27)
[2017-07-03] MEDS: ACETAZOLAMIDE IVPB SCH (08:27)
[2017-07-03] MEDS: Heparin 5000 units/ml inj SUBQ SCH ×2 (08:30→20:29)
[2017-07-03] MEDS ORDERED: acetaZOLAMIDE 500mg Inj IVP SCH (09:00)
--- NOTE | 2017-07-03 09:46 | Pulmonology Progress Note ---
Assessment/Plan Assessment/Plan ASSESSMENT acute diastolic CHF exacerbation acute hypercapnic respiratory failure COPD TOO morbid obesity anemia PLAN OF CARE tele O2, titrate to keep sat above 92% HHN ATC and prn BiPAP at night and prn ECHO with pEF 55% and RVSP of 24 diuresis, pro BNP trending down from 380 to 35 decrease Lasix continue Diamox (due to rising CO2 ) monitor lytes, replace as needed monitor renal parameters, stable for now Venous Duplex BLE negative blood cx preliminary negative BP management with JUAN and optimize as needed DVT prophylaxis PT eval and Rx pain management bowel regimen monitor HH , stable case discussed and evaluated by supervising physician Subjective Allergies: Coded Allergies: IODINE (Verified Allergy, Severe, Anaphylaxis, 05/05/17) Lettuce (Verified Allergy, Severe, Anaphylaxis, 06/24/15) SHELLFISH DERIVED (Verified Allergy, Severe, Anaphylaxis, 05/05/17) Subjective improving, on O2 via NC sat stable no chest pain decreasing edema BLE Objective Last 24 Hour Vital Signs Date Time Temp Pulse Resp B/P Pulse Ox O2 Delivery O2 Flow Rate FiO2 07/03/17 08:26 106/53 07/03/17 08:00 97.7 90 21 106/53 95 Nasal Cannula 2.0 07/03/17 07:54 Nasal Cannula 2.0 07/03/17 07:53 97 Nasal Cannula 2.0 07/03/17 07:52 Nasal Cannula 2.0 07/03/17 07:49 Nasal Cannula 2.0 07/03/17 04:49 97.5 07/03/17 04:41 Nasal Cannula 2.0 07/03/17 04:41 Nasal Cannula 2.0 07/03/17 04:00 101 07/03/17 04:00 97.0 68 18 107/60 Room Air 07/03/17 00:00 84 07/03/17 00:00 97.5 84 18 102/58 94 Nasal Cannula 2.0 07/02/17 23:24 89 20 99 Nasal Cannula 2.0 07/02/17 23:17 28 07/02/17 23:17 85 18 98 Nasal Cannula 2.0 07/02/17 20:00 87 07/02/17 20:00 97.3 82 18 93/57 92 Nasal Cannula 2.0 07/02/17 19:50 93 20 99 Nasal Cannula 2.0 07/02/17 19:45 Nasal Cannula 2.0 07/02/17 19:45 99 Nasal Cannula 2.0 07/02/17 19:44 91 20 99 Nasal Cannula 2.0 07/02/17 19:44 28 07/02/17 16:00 86 07/02/17 15:34 97.9 77 18 123/56 98 Nasal Cannula 2.0 07/02/17 15:27 Nasal Cannula 2.0 07/02/17 15:27 Nasal Cannula 2.0 07/02/17 12:00 94 07/02/17 11:37 96.8 85 18 113/47 96 Nasal Cannula 2.0 07/02/17 11:34 85 20 100 Nasal Cannula 2.0 07/02/17 11:24 32 07/02/17 11:23 89 20 98 Nasal Cannula 2.0 07/02/17 09:50 147/52 Intake and Output 07/02/17 07/03/17 19:00 07:00 Intake Total 905 ml Output Total 600 ml Balance 305 ml Intake Oral 850 ml IV Total 55 ml Output Urine Total 600 ml # Voids 100 4 General Appearance: no acute distress, other - A/A/O x 3 morbidly obese AA female HEENT: normocephalic, atraumatic, anicteric, mucous membranes moist, PERRL Respiratory/Chest: lungs clear - decreased at bases , no respiratory distress, no accessory muscle use Cardiovascular: normal rate, regular rhythm, tachycardia Abdomen: normal bowel sounds, soft, non tender - obese Neurologic/Psychiatric: no motor/sensory deficits, alert, oriented x 3, responsive Musculoskeletal: normal muscle bulk Current Medications Medications (Trade) Dose Ordered Sig/May Route PRN Reason Start Time Stop Time Status Last Admin Dose Admin Acetaminophen (Tylenol) 650 mg Q4H PRN ORAL Mild Pain/Temp > 100.5 06/30/17 02:00 07/30/17 01:59 06/30/17 02:02 Acetaminophen/ Hydrocodone Bitart ([place] 10/325) 1 ea Q4H PRN ORAL PAIN 4-10 06/30/17 07:00 07/07/17 06:59 07/03/17 03:46 Acetazolamide/ Dextrose (Diamox 500mg Inj/D5W) 55 ml @ 110 mls/hr DAILY IVPB 07/02/17 14:00 07/04/17 09:29 07/03/17 08:27 Albuterol/ Ipratropium 3 ml 3 ml Q4HRT HHN 06/30/17 19:00 07/05/17 18:59 07/02/17 23:17 Atorvastatin Calcium (Lipitor) 80 mg BEDTIME ORAL 06/29/17 21:00 07/29/17 20:59 07/02/17 20:15 Dextrose (Dextrose 50%) STAT PRN IV Hypoglycemia 06/29/17 18:30 07/29/17 18:29 Furosemide (Lasix) 40 mg EVERY 8 HOURS IV 06/29/17 22:00 07/29/17 21:59 07/03/17 05:18 Heparin Sodium (Porcine) (Heparin 5000 units/ml) 5,000 units EVERY 12 HOURS SUBQ 06/29/17 21:00 07/29/17 20:59 07/03/17 08:30 Lisinopril (Zestril) 10 mg DAILY ORAL 07/03/17 09:00 07/30/17 08:59 07/03/17 08:26 Nitroglycerin (Ntg) 0.4 mg Q5M PRN SL Prn Chest Pain 06/29/17 23:15 07/29/17 23:14 06/29/17 23:17 Ondansetron HCl (Zofran) 4 mg Q6H PRN IVP Nausea & Vomiting 06/29/17 18:30 07/29/17 18:29 Polyethylene Glycol (Miralax) 17 gm DAILYPRN PRN ORAL Constipation 06/29/17 18:30 07/29/17 18:29 Sertraline HCl (Zoloft) 200 mg DAILY ORAL 06/30/17 09:00 07/30/17 08:59 07/03/17 08:26 Temazepam (Restoril) 15 mg HSPRN PRN ORAL Insomnia 06/29/17 18:30 07/06/17 18:29 Arminda Arnold NP ([facility]anchtein) Jul 03, 2017 09:46
[2017-07-03 12:00] VITALS: BP 115/65
[2017-07-03 16:00] VITALS: BP 103/51
--- NOTE | 2017-07-03 17:06 | Cardiology Progress Note ---
Assessment/Plan Assessment/Plan copd exacerbation distokic failure atyupicl chest pain with neg ischemia evlaution adn normla trop htn obesity arleen tobacco use do diurtic helpped bnp decreaes form 200's to 35 bp is lwoer will dc lisnopril will decrease lasix due to bp adn increased bicarb willgie 2 dose of damox [id number] Objective Last 24 Hour Vital Signs Date Time Temp Pulse Resp B/P Pulse Ox O2 Delivery O2 Flow Rate FiO2 07/03/17 16:00 84 07/03/17 16:00 97.0 73 20 103/51 94 Nasal Cannula 2.0 07/03/17 14:26 83 20 98 Nasal Cannula 2.0 07/03/17 14:16 104 20 94 Nasal Cannula 2.0 07/03/17 12:00 114 07/03/17 12:00 97.5 101 21 115/65 92 Nasal Cannula 2.0 07/03/17 11:13 85 20 100 Nasal Cannula 2.0 07/03/17 11:03 95 20 95 Nasal Cannula 2.0 07/03/17 08:26 106/53 07/03/17 08:00 97.7 90 21 106/53 95 Nasal Cannula 2.0 07/03/17 08:00 103 07/03/17 07:54 Nasal Cannula 2.0 07/03/17 07:53 97 Nasal Cannula 2.0 07/03/17 07:52 Nasal Cannula 2.0 07/03/17 07:49 Nasal Cannula 2.0 07/03/17 04:49 97.5 07/03/17 04:41 Nasal Cannula 2.0 07/03/17 04:41 Nasal Cannula 2.0 07/03/17 04:00 101 07/03/17 04:00 97.0 68 18 107/60 Room Air 07/03/17 00:00 84 07/03/17 00:00 97.5 84 18 102/58 94 Nasal Cannula 2.0 07/02/17 23:24 89 20 99 Nasal Cannula 2.0 07/02/17 23:17 28 07/02/17 23:17 85 18 98 Nasal Cannula 2.0 07/02/17 20:00 87 07/02/17 20:00 97.3 82 18 93/57 92 Nasal Cannula 2.0 07/02/17 19:50 93 20 99 Nasal Cannula 2.0 07/02/17 19:45 Nasal Cannula 2.0 07/02/17 19:45 99 Nasal Cannula 2.0 07/02/17 19:44 91 20 99 Nasal Cannula 2.0 07/02/17 19:44 28 Intake and Output 07/02/17 07/03/17 19:00 07:00 Intake Total 905 ml Output Total 600 ml Balance 305 ml Intake Oral 850 ml IV Total 55 ml Output Urine Total 600 ml # Voids 100 4 ANDI ZACARIAS Jul 03, 2017 17:06
[2017-07-03] MEDS: Atorvastatin 80mg tab ORAL SCH (20:27)
[2017-07-03 20:40] VITALS: BP 109/81
--- NOTE | 2017-07-03 21:00 | Consultation ---
DATE OF CONSULTATION: CARDIOLOGY CONSULTATION CONSULTING PHYSICIAN: Tyler Batista M.D. REFERRING PHYSICIAN: Win Ro M.D. HISTORY OF PRESENT ILLNESS: This is a middle-aged female, who is known to me from prior evaluation and hospitalization in the hospital as well as at the office. The patient has a history of significant COPD and obesity, who has been admitted to the hospital here several times. I actually saw the patient in the office on 06/09/2017. At that time, she had some crackles, so I increased her Lasix, but her subsequent laboratories and natriuretic peptide was quite normal. I decided to possibly decrease her back down to 40 mg once a day because of fear that I make her too dry. Nevertheless, over the past few days, she has had increasing shortness of breath to the point that she has not been able to call or even talk. Her breathing machine was not really helping her at home, the nebulizers, so she decided to come to the hospital. She has had some pain, sharp sensation in the center of the chest that has been present most of the time since this past Wednesday. The pain does not resolve, but it does get better, but not to a significant degree with the use of morphine nor with the use of Tylenol. So, she has actually gotten some [place], which she did respond, although the pain improved, but never goes away. She has had significant improvement since she is being getting the breathing treatments and the diuretic, but she is not back to the baseline status yet. She has orthopnea. She does have PND. There are no palpitations and no dizziness or lightheadedness on standing. PAST MEDICAL HISTORY: History of high blood pressure, high cholesterol, history of diastolic heart failure, COPD with mild exacerbation, uterine fibroids, prior normal ejection fraction of 50%, renal failure, morbid obesity, sleep apnea on CPAP at home, tobacco use disorder as well as essential hypertension. MEDICATIONS: Her medications at home include aspirin 81 mg, Lipitor 80 mg, QVAR inhaler, Benadryl, Colace, Lasix 20 mg twice daily, albuterol, Xopenex inhaler, lisinopril 20 mg daily, metoprolol 50 mg half a tablet twice daily, Zantac, and sertraline as well as tramadol. SOCIAL HISTORY: Does smoke one pack per day. Alcohol described as social. No drugs. 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 REVIEW OF SYSTEMS: Gastrointestinal: She denies. Genitourinary: She denies. Pulmonary: Positive for coughing and wheezing, but she does not have any significant cough component Constitutional: Negative. Neurologic: Negative. PHYSICAL EXAMINATION: GENERAL: Shows morbidly obese female, in no respiratory distress, although she is not able to sleep flat. NECK: Supple. No jugular venous distention. LUNGS: Decreased air entry bilaterally. There are crackles noted bilaterally. CARDIAC: S1 is normal. S2 is normal. Regular rate and rhythm. No heaves, thrills, or gallops noted. ABDOMEN: Soft and obese. Positive bowel sounds. EXTREMITIES: There is no clubbing. There is trace edema. NEUROLOGIC: She is awake, alert, and responsive, in no apparent distress. LABORATORY STUDIES: White count of 6, hemoglobin 10.5, and a platelet count of 297,000. Sodium is 142, potassium 3.3, chloride 91, bicarbonate of 43, BUN 11, creatinine 0.6, glucose of 116. Liver function tests are normal. Pro-BNP was 196, now 35. Albumin 4.3. Coags, INR 0.9 and PTT of 26. Urinalysis is 1+ leukocyte esterase, few WBCs. Chest x-ray shows interstitial pulmonary edema. Echocardiogram shows ejection fraction of 55%, technically difficult study, and grade 2 diastolic dysfunction. ASSESSMENT: 1. Chronic obstructive pulmonary disease with exacerbation. 2. Diastolic heart failure. 3. Chest pain, atypical, sharp sensation with no evidence of myonecrosis. 4. Morbid obesity. 5. Obstructive sleep apnea. 6. Tobacco use disorder. 7. Hyperlipidemia. 8. . PLAN: Dr. Ro, this patient was seen in cardiac consultation. I think she has responded somewhat to the diuretics as well as the treatment that she received for blood pressure, however, has dropped from 140 that she had yesterday down to the lowest of 93, although at the present time it is 103/51. I think the dose of diuretic may need to be adjusted, possibly the dose of her antihypertensive medications may need to be decreased to accommodate diuretics as needed if she is on any at this time. Continue treatment with inhalers. Her pain is very atypical and sharp sensation and not ischemic. She has no complete relief of the pain and her cardiac enzymes were negative. Her electrocardiogram is showing some T-wave inversions in basically all of the leads and that is unchanged. I doubt that this is ischemic pain. Furthermore, I will consider performing a CT coronary angiography once and for all in the office to document whether she has any coronary disease. Of note, she has had a perfusion stress test that was performed here at [place] and 31 that was negative. Bicarbonate is a bit on the high side. I would use two doses of Diamox to help in addition to decreasing the diuretic dose. Dr. Ro, thank you for allowing me to participate in the care of this patient. Tyler Batista M.D. DR: Shelley JOB#: [id number] CC:
[2017-07-04] VITALS (7 sets, daily range): BP systolic 110–130; BP diastolic 46–81
[2017-07-04] MEDS: Norco 10mg/325mg tab ORAL PRN ×3 (02:35→18:55)
[2017-07-04] MEDS: DuoNeb 0.5-3(2.5)mg/3ml neb HHN SCH ×6 (03:08→22:42)
[2017-07-04 07:19] LABS: BASOPHILS % (AUTO) 0.9 % (0.0-2.0); EOSINOPHILS % (AUTO) 2.7 % (0.0-3.0); LYMPHOCYTES % (AUTO) 25.9 % (20.0-45.0); MEAN CORPUSCULAR HEMOGLOBIN 22.3 PG (27.0-31.0); MEAN CORPUSCULAR HGB CONC 28.5 G/DL (32.0-36.0); MEAN CORPUSCULAR VOLUME 78 FL (80-99); MEAN PLATELET VOLUME 6.1 FL (6.5-10.1); MONOCYTES % (AUTO) 5.6 % (1.0-10.0); NEUTROPHILS % (AUTO) 64.9 % (45.0-75.0); PLATELET COUNT 311 K/UL (150-450); RED BLOOD COUNT 4.91 M/UL (4.20-5.40); WHITE BLOOD COUNT 8.5 K/UL (4.8-10.8)
[2017-07-04 07:31] LABS: ANION GAP 13 (5-15); CALCIUM 9.5 mg/dL (8.6-10.2); CARBON DIOXIDE 36 mEQ/L (20-30); CHLORIDE 91 mEQ/L (98-107); CREATININE 0.8 mg/dL (0.5-0.9); GLOMERULAR FILTRATION RATE > 60 mL/min (>60); HEMOLYSIS 4; POTASSIUM 3.6 mEQ/L (3.4-4.9); SODIUM 140 mEQ/L (135-145)
[2017-07-04] MEDS: Sertraline 100mg tab ORAL SCH (08:48)
[2017-07-04] MEDS: Lisinopril 10mg tab ORAL SCH (08:49)
[2017-07-04] MEDS: Heparin 5000 units/ml inj SUBQ SCH ×2 (08:53→20:11)
[2017-07-04] MEDS: D5W IVPB SCH (10:01)
[2017-07-04] MEDS: ACETAZOLAMIDE IVPB SCH (10:01)
--- NOTE | 2017-07-04 13:25 | Pulmonology Progress Note ---
Assessment/Plan Assessment/Plan ASSESSMENT atypical chest pain acute diastolic CHF acute hypercapnic respiratory failure COPD TOO tobacco disorder HTN morbid obesity hyperlipidemia anemia PLAN OF CARE tele serial troponin negative ECG reviewed by cardio, TWI in most of leads unchanged from before per cardio CP atypical, no evidence of myonecrosis cardio recommended CT coronary angio as outpatient O2, titrate to keep sat above 92% HHN ATC and prn BiPAP at night and prn ECHO with pEF 55% and RVSP of 24 diuresis, pro BNP trending down from 380 to 35 cardio follows decrease Lasix to daily and switch to oral in 1 day off Diamox ( was on Diamox due to rising CO2 ), CO2 down to 36 on BMP monitor lytes, replace as needed monitor renal parameters, stable for now Venous Duplex BLE negative blood cx preliminary negative BP management with JUAN and optimize as needed DVT prophylaxis PT eval and Rx pain management bowel regimen monitor HH , stable case discussed and evaluated by supervising physician Subjective Allergies: Coded Allergies: IODINE (Verified Allergy, Severe, Anaphylaxis, 05/05/17) Lettuce (Verified Allergy, Severe, Anaphylaxis, 06/24/15) SHELLFISH DERIVED (Verified Allergy, Severe, Anaphylaxis, 05/05/17) Subjective improving, on O2 via NC sat stable no chest pain decreasing edema BLE Objective Last 24 Hour Vital Signs Date Time Temp Pulse Resp B/P Pulse Ox O2 Delivery O2 Flow Rate FiO2 07/04/17 12:00 97.3 106 19 130/69 96 Room Air 07/04/17 12:00 99 07/04/17 10:41 94 20 100 Nasal Cannula 07/04/17 10:35 28 07/04/17 10:35 92 20 96 Nasal Cannula 2.0 07/04/17 09:00 106 105 113 07/04/17 08:49 111/48 07/04/17 08:00 103 07/04/17 08:00 97.7 106 21 111/48 95 Nasal Cannula 2.0 07/04/17 07:30 98 Nasal Cannula 2.0 07/04/17 07:30 96 20 99 Nasal Cannula 07/04/17 07:30 Nasal Cannula 2.0 28 07/04/17 07:25 28 07/04/17 07:25 95 20 96 Nasal Cannula 2.0 07/04/17 04:00 81 07/04/17 04:00 98.0 97 24 117/63 95 Nasal Cannula 2.0 07/04/17 03:40 98.4 07/04/17 03:16 106 20 99 Nasal Cannula 28 07/04/17 03:03 104 20 96 Nasal Cannula 2.0 07/04/17 03:03 28 07/04/17 00:00 98.4 82 20 110/62 97 Nasal Cannula 2.0 07/04/17 00:00 96 07/03/17 23:16 95 20 99 Nasal Cannula 2.0 07/03/17 23:05 93 20 96 Nasal Cannula 2.0 28 07/03/17 23:05 28 07/03/17 20:40 98.0 94 24 109/81 94 Nasal Cannula 2.0 07/03/17 20:11 91 22 99 Nasal Cannula 2.0 07/03/17 20:00 96 Nasal Cannula 2.0 07/03/17 20:00 28 07/03/17 20:00 Nasal Cannula 2.0 28 07/03/17 20:00 98 07/03/17 20:00 91 22 Nasal Cannula 2.0 07/03/17 16:00 84 07/03/17 16:00 97.0 73 20 103/51 94 Nasal Cannula 2.0 07/03/17 14:26 83 20 98 Nasal Cannula 2.0 07/03/17 14:16 104 20 94 Nasal Cannula 2.0 Intake and Output 07/03/17 07/04/17 19:00 07:00 Intake Total 55 ml Output Total 500 ml 800 ml Balance -445 ml -800 ml IV Total 55 ml Output Urine Total 500 ml 800 ml Objective General Appearance: no acute distress, other - A/A/O x 3 morbidly obese AA female HEENT: normocephalic, atraumatic, anicteric, mucous membranes moist, PERRL Respiratory/Chest: lungs clear - decreased at bases , no respiratory distress, no accessory muscle use Cardiovascular: normal rate, regular rhythm, tachycardia Abdomen: normal bowel sounds, soft, non tender - obese Neurologic/Psychiatric: no motor/sensory deficits, alert, oriented x 3, responsive Musculoskeletal: normal muscle bulk Laboratory Tests 07/04/17 05:55: White Blood Count 8.5, Red Blood Count 4.91, Hemoglobin 11.0L, Hematocrit 38.4, Mean Corpuscular Volume 78L, Mean Corpuscular Hemoglobin 22.3L, Mean Corpuscular Hemoglobin Concent 28.5L, Red Cell Distribution Width 20.0H, Platelet Count 311, Mean Platelet Volume 6.1L, Neutrophils (%) (Auto) 64.9, Lymphocytes (%) (Auto) 25.9, Monocytes (%) (Auto) 5.6, Eosinophils (%) (Auto) 2.7, Basophils (%) (Auto) 0.9, Sodium Level 140, Potassium Level 3.6, Chloride Level 91L, Carbon Dioxide Level 36H, Anion Gap 13, Blood Urea Nitrogen 19, Creatinine 0.8, Estimat Glomerular Filtration Rate > 60, Glucose Level 111H, Calcium Level 9.5 Current Medications Medications (Trade) Dose Ordered Sig/May Route PRN Reason Start Time Stop Time Status Last Admin Dose Admin Acetaminophen (Tylenol) 650 mg Q4H PRN ORAL Mild Pain/Temp > 100.5 06/30/17 02:00 07/30/17 01:59 06/30/17 02:02 Acetaminophen/ Hydrocodone Bitart ([place] 10/325) 1 ea Q4H PRN ORAL PAIN 4-10 06/30/17 07:00 07/07/17 06:59 07/04/17 02:35 Albuterol/ Ipratropium (DuoNeb 0.5-3(2.5)mg/3ml) 3 ml Q4HRT HHN 07/03/17 19:00 07/08/17 18:59 07/04/17 10:41 Atorvastatin Calcium (Lipitor) 80 mg BEDTIME ORAL 06/29/17 21:00 07/29/17 20:59 07/03/17 20:27 Dextrose (Dextrose 50%) STAT PRN IV Hypoglycemia 06/29/17 18:30 07/29/17 18:29 Furosemide (Lasix) 40 mg Q12HR IV 07/03/17 21:00 08/02/17 20:59 07/04/17 10:02 Heparin Sodium (Porcine) (Heparin 5000 units/ml) 5,000 units EVERY 12 HOURS SUBQ 06/29/17 21:00 07/29/17 20:59 07/04/17 08:53 Lisinopril (Zestril) 10 mg DAILY ORAL 07/03/17 09:00 07/30/17 08:59 07/04/17 08:49 Nitroglycerin (Ntg) 0.4 mg Q5M PRN SL Prn Chest Pain 06/29/17 23:15 07/29/17 23:14 06/29/17 23:17 Ondansetron HCl (Zofran) 4 mg Q6H PRN IVP Nausea & Vomiting 06/29/17 18:30 07/29/17 18:29 Polyethylene Glycol (Miralax) 17 gm DAILYPRN PRN ORAL Constipation 06/29/17 18:30 07/29/17 18:29 Sertraline HCl (Zoloft) 200 mg DAILY ORAL 06/30/17 09:00 07/30/17 08:59 07/04/17 08:48 Temazepam (Restoril) 15 mg HSPRN PRN ORAL Insomnia 06/29/17 18:30 07/06/17 18:29 [facility] ([facility])Arminda NP Jul 04, 2017 13:25
--- NOTE | 2017-07-04 14:10 | Cardiology Progress Note ---
Assessment/Plan Assessment/Plan 1. Chronic obstructive pulmonary disease with exacerbation. 2. Diastolic heart failure. 3. Chest pain, atypical, sharp sensation with no evidence of myonecrosis. 4. Morbid obesity. 5. Obstructive sleep apnea. 6. Tobacco use disorder. 7. Hyperlipidemia. lasix 40 mg dialy see me as outp t ctca as out pt discussed with pt tele reviewed Subjective Cardiovascular: Denies: chest pain, lightheadedness, palpitations Respiratory: Reports: shortness of breath - but better Gastrointestinal/Abdominal: Denies: abdominal pain Genitourinary: Denies: burning Objective Last 24 Hour Vital Signs Date Time Temp Pulse Resp B/P Pulse Ox O2 Delivery O2 Flow Rate FiO2 07/04/17 12:00 97.3 106 19 130/69 96 Room Air 07/04/17 12:00 99 07/04/17 10:41 94 20 100 Nasal Cannula 07/04/17 10:35 28 07/04/17 10:35 92 20 96 Nasal Cannula 2.0 07/04/17 09:00 106 105 113 07/04/17 08:49 111/48 07/04/17 08:00 103 07/04/17 08:00 97.7 106 21 111/48 95 Nasal Cannula 2.0 07/04/17 07:30 98 Nasal Cannula 2.0 07/04/17 07:30 96 20 99 Nasal Cannula 07/04/17 07:30 Nasal Cannula 2.0 07/04/17 07:25 28 07/04/17 07:25 95 20 96 Nasal Cannula 2.0 07/04/17 04:00 81 07/04/17 04:00 98.0 97 24 117/63 95 Nasal Cannula 2.0 07/04/17 03:40 98.4 07/04/17 03:16 106 20 99 Nasal Cannula 07/04/17 03:03 104 20 96 Nasal Cannula 2.0 07/04/17 03:03 07/04/17 00:00 98.4 82 20 110/62 97 Nasal Cannula 2.0 07/04/17 00:00 96 07/03/17 23:16 95 20 99 Nasal Cannula 2.0 07/03/17 23:05 93 20 96 Nasal Cannula 2.0 07/03/17 23:05 28 07/03/17 20:40 98.0 94 24 109/81 94 Nasal Cannula 2.0 07/03/17 20:11 91 22 99 Nasal Cannula 2.0 28 07/03/17 20:00 96 Nasal Cannula 2.0 28 07/03/17 20:00 28 07/03/17 20:00 Nasal Cannula 2.0 28 07/03/17 20:00 98 07/03/17 20:00 91 22 Nasal Cannula 2.0 28 07/03/17 16:00 84 07/03/17 16:00 97.0 73 20 103/51 94 Nasal Cannula 2.0 07/03/17 14:26 83 20 98 Nasal Cannula 2.0 07/03/17 14:16 104 20 94 Nasal Cannula 2.0 General Appearance: no apparent distress, alert, obese Neck: supple Cardiovascular: normal rate, regular rhythm Respiratory/Chest: lungs clear Abdomen: normal bowel sounds, non tender, soft Extremities: no swelling Intake and Output 07/03/17 07/04/17 19:00 07:00 Intake Total 55 ml Output Total 500 ml 800 ml Balance -445 ml -800 ml IV Total 55 ml Output Urine Total 500 ml 800 ml Laboratory Tests Test 07/04/17 05:55 White Blood Count 8.5 K/UL (4.8-10.8) Red Blood Count 4.91 M/UL (4.20-5.40) Hemoglobin 11.0 G/DL (12.0-16.0) L Hematocrit 38.4 % (37.0-47.0) Mean Corpuscular Volume 78 FL (80-99) L Mean Corpuscular Hemoglobin 22.3 PG (27.0-31.0) L Mean Corpuscular Hemoglobin Concent 28.5 G/DL (32.0-36.0) L Red Cell Distribution Width 20.0 % (11.6-14.8) H Platelet Count 311 K/UL (150-450) Mean Platelet Volume 6.1 FL (6.5-10.1) L Neutrophils (%) (Auto) 64.9 % (45.0-75.0) Lymphocytes (%) (Auto) 25.9 % (20.0-45.0) Monocytes (%) (Auto) 5.6 % (1.0-10.0) Eosinophils (%) (Auto) 2.7 % (0.0-3.0) Basophils (%) (Auto) 0.9 % (0.0-2.0) Sodium Level 140 mEQ/L (135-145) Potassium Level 3.6 mEQ/L (3.4-4.9) Chloride Level 91 mEQ/L (98-107) L Carbon Dioxide Level 36 mEQ/L (20-30) H Anion Gap 13 (5-15) Blood Urea Nitrogen 19 mg/dL (7-23) Creatinine 0.8 mg/dL (0.5-0.9) Estimat Glomerular Filtration Rate > 60 mL/min (>60) Glucose Level 111 mg/dL (74-106) H Calcium Level 9.5 mg/dL (8.6-10.2) ANDI ZACARIAS Jul 04, 2017 14:10
[2017-07-04] MEDS: Promethazine/Codeine 5ml UD ORAL PRN (16:24)
--- NOTE | 2017-07-04 18:45 | Progress Note ---
DATE: 07/04/2017 Subjective: The patient is doing better. No behavior issues. She has episodes of anxiety, however, is not 00:11 symptoms. The patient is compliant with medication, pleasant and cooperative. MENTAL STATUS EXAMINATION: Alert and oriented x4. Mood is neutral. Affect is constricted, congruent with mood. Thought process is concrete. Thought content, no suicidal or homicidal ideation. ASSESSMENT: 1. Anxiety disorder. 2. Insomnia. PLAN: 1. The patient will be doing well on current medication. 2. Provide the patient with supportive therapy and reality orientation. Gabe Gordon M.D. DR: PEEWEE JOB#: [id number] CC:
[2017-07-04] MEDS: Atorvastatin 80mg tab ORAL SCH (20:08)
[2017-07-05] MEDS: Norco 10mg/325mg tab ORAL PRN ×3 (02:36→12:25)
[2017-07-05] MEDS: DuoNeb 0.5-3(2.5)mg/3ml neb HHN SCH ×4 (03:00→15:00)
[2017-07-05 04:00] VITALS: BP 93/44
[2017-07-05 07:43] LABS: BASOPHILS % (AUTO) 1.1 % (0.0-2.0); EOSINOPHILS % (AUTO) 2.6 % (0.0-3.0); LYMPHOCYTES % (AUTO) 25.8 % (20.0-45.0); MEAN CORPUSCULAR HEMOGLOBIN 23.6 PG (27.0-31.0); MEAN CORPUSCULAR HGB CONC 29.9 G/DL (32.0-36.0); MEAN CORPUSCULAR VOLUME 79 FL (80-99); MEAN PLATELET VOLUME 6.6 FL (6.5-10.1); MONOCYTES % (AUTO) 8.2 % (1.0-10.0); NEUTROPHILS % (AUTO) 62.3 % (45.0-75.0); PLATELET COUNT 328 K/UL (150-450); RED CELL DISTRIBUTION WIDTH 19.9 % (11.6-14.8); WHITE BLOOD COUNT 8.8 K/UL (4.8-10.8)
[2017-07-05 08:00] VITALS: BP 95/55
[2017-07-05] MEDS: Lisinopril 10mg tab ORAL SCH (09:00)
[2017-07-05 09:22] LABS: CALCIUM 9.2 mg/dL (8.6-10.2); CREATININE 1.3 mg/dL (0.5-0.9); GLOMERULAR FILTRATION RATE 51.9 mL/min (>60); POTASSIUM 3.6 mEQ/L (3.4-4.9)
[2017-07-05] MEDS: Heparin 5000 units/ml inj SUBQ SCH (10:50)
[2017-07-05] MEDS: Sertraline 100mg tab ORAL SCH (10:52)
[2017-07-05] MEDS: Promethazine/Codeine 5ml UD ORAL PRN (11:30)
[2017-07-05 12:00] VITALS: BP 100/66
--- NOTE | 2017-07-05 12:14 | Diagnostic Imaging Report ---
Indication: Dyspnea Comparison: 07/01/17 A single view chest radiograph was obtained. Findings: Patchy vascular prominence and cardiomegaly are demonstrated. Findings consistent with interstitial edema/CHF. There is evidence of some improvement in this regard. Impression: Evidence of mild interstitial edema improved from the previous occasion
--- NOTE | 2017-07-05 13:24 | Pulmonology Progress Note ---
Assessment/Plan Problems: (1) Acute exacerbation of CHF (congestive heart failure) (2) Respiratory failure, acute (3) Sleep apnea (4) Diabetes mellitus (5) Morbid obesity Assessment/Plan improving, slowly slightly change respiratory treament to standing order cxr shows resolution of pulmonary edema dc home Subjective ROS Limited/Unobtainable: No Interval Events: doing better Allergies: Coded Allergies: IODINE (Verified Allergy, Severe, Anaphylaxis, 05/05/17) Lettuce (Verified Allergy, Severe, Anaphylaxis, 06/24/15) SHELLFISH DERIVED (Verified Allergy, Severe, Anaphylaxis, 05/05/17) Objective Last 24 Hour Vital Signs Date Time Temp Pulse Resp B/P Pulse Ox O2 Delivery O2 Flow Rate FiO2 07/05/17 12:00 97.7 95 20 100/66 95 Nasal Cannula 2.0 07/05/17 11:48 92 20 88 Nasal Cannula 2.0 07/05/17 11:47 90 22 95 Nasal Cannula 2.0 07/05/17 11:40 28 07/05/17 09:00 95 91 107 07/05/17 09:00 109/59 07/05/17 08:39 90 22 95 Nasal Cannula 2.0 07/05/17 08:00 97.3 107 20 95/55 92 Nasal Cannula 2.0 07/05/17 07:58 Nasal Cannula 2.0 07/05/17 07:58 95 Nasal Cannula 2.0 07/05/17 07:58 113 20 95 Nasal Cannula 2.0 07/05/17 04:36 98.4 07/05/17 04:00 95 07/05/17 04:00 98.1 102 18 93/44 96 Nasal Cannula 2.0 07/05/17 03:10 99 22 95 Nasal Cannula 2.0 07/05/17 02:59 07/05/17 02:59 102 24 88 Nasal Cannula 2.0 07/05/17 00:00 91 07/04/17 23:41 97.8 102 20 113/64 97 Nasal Cannula 2.0 07/04/17 22:55 103 20 95 Nasal Cannula 2.0 07/04/17 22:45 28 07/04/17 22:42 108 22 94 Nasal Cannula 2.0 07/04/17 20:00 101 07/04/17 20:00 97.5 97 19 115/46 91 Nasal Cannula 2.0 07/04/17 19:58 108 20 96 Nasal Cannula 2.0 28 07/04/17 19:54 28 07/04/17 19:54 110 22 93 Nasal Cannula 2.0 28 07/04/17 19:53 93 Nasal Cannula 2.0 28 07/04/17 19:53 Nasal Cannula 2.0 28 07/04/17 16:00 90 07/04/17 16:00 97.6 100 23 120/81 95 Nasal Cannula 2.0 07/04/17 15:00 96 20 100 Nasal Cannula 28 07/04/17 14:50 95 20 96 Nasal Cannula 2.0 28 07/04/17 14:50 28 Intake and Output 07/04/17 07/05/17 19:00 07:00 Intake Total 735 ml 475 ml Balance 735 ml 475 ml Intake Oral 680 ml 475 ml IV Total 55 ml # Voids 3 General Appearance: WD/WN HEENT: normocephalic, atraumatic, anicteric Respiratory/Chest: chest wall non-tender, lungs clear Breasts: no masses Cardiovascular: normal peripheral pulses, normal rate Abdomen: normal bowel sounds, soft, non tender Extremities: no cyanosis Skin: no rash 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 Laboratory Tests 07/05/17 06:50: White Blood Count 8.8, Red Blood Count 4.80, Hemoglobin 11.3L, Hematocrit 37.8, Mean Corpuscular Volume 79L, Mean Corpuscular Hemoglobin 23.6L, Mean Corpuscular Hemoglobin Concent 29.9L, Red Cell Distribution Width 19.9H, Platelet Count 328, Mean Platelet Volume 6.6, Neutrophils (%) (Auto) 62.3, Lymphocytes (%) (Auto) 25.8, Monocytes (%) (Auto) 8.2, Eosinophils (%) (Auto) 2.6, Basophils (%) (Auto) 1.1, Sodium Level 139, Potassium Level 3.6, Chloride Level 91L, Carbon Dioxide Level 35H, Anion Gap 13, Blood Urea Nitrogen 25H, Creatinine 1.3#H, Estimat Glomerular Filtration Rate 51.9, Glucose Level 107H, Calcium Level 9.2 Current Medications Medications (Trade) Dose Ordered Sig/May Route PRN Reason Start Time Stop Time Status Last Admin Dose Admin Acetaminophen (Tylenol) 650 mg Q4H PRN ORAL Mild Pain/Temp > 100.5 06/30/17 02:00 07/30/17 01:59 06/30/17 02:02 Acetaminophen/ Hydrocodone Bitart ([place] 10/325) 1 ea Q4H PRN ORAL PAIN 4-10 06/30/17 07:00 07/07/17 06:59 07/05/17 12:25 Albuterol/ Ipratropium (DuoNeb 0.5-3(2.5)mg/3ml) 3 ml Q4HRT HHN 07/03/17 19:00 07/08/17 18:59 07/05/17 11:46 Atorvastatin Calcium (Lipitor) 80 mg BEDTIME ORAL 06/29/17 21:00 07/29/17 20:59 07/04/17 20:08 Dextrose (Dextrose 50%) STAT PRN IV Hypoglycemia 06/29/17 18:30 07/29/17 18:29 Furosemide (Lasix) 40 mg DAILY IV 07/05/17 09:00 08/04/17 08:59 07/05/17 10:53 Heparin Sodium (Porcine) (Heparin 5000 units/ml) 5,000 units EVERY 12 HOURS SUBQ 06/29/17 21:00 07/29/17 20:59 07/05/17 10:50 Lisinopril (Zestril) 10 mg DAILY ORAL 07/03/17 09:00 07/30/17 08:59 07/05/17 09:00 Nitroglycerin (Ntg) 0.4 mg Q5M PRN SL Prn Chest Pain 06/29/17 23:15 07/29/17 23:14 06/29/17 23:17 Ondansetron HCl (Zofran) 4 mg Q6H PRN IVP Nausea & Vomiting 06/29/17 18:30 07/29/17 18:29 Polyethylene Glycol (Miralax) 17 gm DAILYPRN PRN ORAL Constipation 06/29/17 18:30 07/29/17 18:29 07/05/17 12:55 Promethazine HCl/ Codeine (Phenergan with Codeine) 5 ml Q6H PRN ORAL For Cough 07/04/17 16:15 08/03/17 16:14 07/05/17 11:30 Sertraline HCl (Zoloft) 200 mg DAILY ORAL 06/30/17 09:00 07/30/17 08:59 07/05/17 10:52 Temazepam (Restoril) 15 mg HSPRN PRN ORAL Insomnia 06/29/17 18:30 07/06/17 18:29 LAMIN NEWTON Jul 05, 2017 13:24
--- NOTE | 2017-07-05 22:30 | Progress Note ---
DATE: 07/05/2017 SUBJECTIVE: The patient is stable at baseline. No behavior issues. Calm and cooperative, engaged, increasing anxiety. The patient is compliant with care. MENTAL STATUS EXAMINATION: The patient alert and oriented x4. Mood is neutral. Affect is constricted, congruent with mood. Thought process is concrete. Thought content, there is no suicidal or homicidal ideations. ASSESSMENT: Stable anxiety disorder. PLAN: The patient will be continued on Ativan. Gabe Gordon M.D. DR: Barbi JOB#: [id number] CC:
--- NOTE | 2017-07-06 10:56 | Discharge Summary ---
Discharge Summary Hospital Course Date of Admission Jun 29, 2017 at 17:55 Date of Discharge Jul 05, 2017 at 15:30 Admitting Diagnosis ACS/COPD HPI Christina Jimenez is a 52 year old female who was admitted on Jun 29, 2017 at 17:55 for Acute Coronary Syndrome, Chronic Obstructive Disea Hospital Course dc summary #[id number] Discharge Medications Continued Medications: Aspirin* (Aspir 81*) 81 Mg Tablet.dr 81 MG ORAL DAILY, TAB Atorvastatin Calcium* (Lipitor*) 80 Mg Tablet 80 MG ORAL BEDTIME Beclomethasone Dipropionate 40MCG Oral Inh (Qvar 40*) 7.3 Gm Aer.w.adap 2 PUFFS INH PRN for Shortness of Breath Furosemide* (Lasix*) 20 Mg Tablet 20 MG ORAL TWICE A DAY Levalbuterol Hcl (Xopenex*) 0.63 Mg/3 Ml Vial.neb Unknown Dose HHN Q4H for 30 Days, MG 0 Refills Lisinopril (Lisinopril*) 20 Mg Tablet 20 MG ORAL DAILY, TAB Nitroglycerin (Nitroglycerin) 0.4 Mg Tab.subl 0.4 MG SL DAILY PRN for For Pain, TAB Ranitidine Hcl* (Zantac*) 150 Mg Tablet 150 MG ORAL TWICE A DAY, TAB Sertraline Hcl* (Zoloft*) 100 Mg Tablet 200 MG ORAL DAILY, TAB Tiotropium [place]* (Spiriva*) 18 Mcg Cap.w.dev 2 PUFF INH DAILY Discharge Condition Upon Discharge: stable Discharge Disposition Patient was discharged to Home with services Discharge Diagnoses: Clayton ([facility])Arminda NP Jul 06, 2017 10:56
--- NOTE | 2017-07-07 05:45 | Discharge Summary 2 SIG ---
DATE OF ADMISSION: 06/29/2017 DATE OF DISCHARGE: 07/05/2017 REASON FOR ADMISSION: A 52-year-old female with a history of COPD, CHF, hypertension, morbid obesity, and obstructive sleep apnea, presented to the emergency department complaining of chest pain and shortness of breath for the last 24 hours. The patient admitted to the leg swelling. The patient's chest x-ray was suggestive of pulmonary edema. The patient was placed on supplemental oxygen. First troponin was negative. ProBNP was 380. Potassium was 3.2. Initial CO2 was 38. The patient with hemoglobin 10.2 and hematocrit 36.1. The patient was admitted for further management. ADMITTING DIAGNOSES: 1. Chest pain. 2. Acute respiratory failure. 3. Acute congestive heart failure exacerbation. 4. Chronic obstructive pulmonary disease possible exacerbation. 5. Morbid obesity. 6. Obstructive sleep apnea. HOSPITAL STAY: The patient admitted to telemetry floor. Cardiology consult was requested. The patient started on diuresis. Intake and output, renal parameters, and electrolytes were closely monitored. ProBNP and chest x-ray were trending. The patient was on supplemental oxygen to keep saturation above 92%. Pulmonary toilet provided as needed. BiPAP at night. The patient's blood pressure was managed with current medication regimen and was stable. Serial troponin was negative. Per lumber inspector, no evidence of myonecrosis. Chest pain is atypical. He recommended outpatient CT coronary angiogram. The patient does have almost in all leads T-wave inversion, but it is not changed from the previous exam. Doubt any ischemic heart disease and recommended CT coronary angiogram as outpatient. With diuretic, the patient's clinical symptoms resolved. Diuretic was titrated from three times a day to two times a day and to daily and upon discharge changed to oral route. Nebulizing treatment provided around the clock and as needed. Respiratory status improved with diuresis and nebulizing treatment. Echocardiogram revealed preserved ejection fraction of 55% and right ventricular systolic pressure of 24. ProBNP was trending down from 380 initially to 35. The patient was placed on Diamox due to the rising CO2 for few doses. CO2 down to 36. Diamox discontinued. Venous duplex bilateral lower extremity were negative. Blood cultures were negative. Chest x-ray on the day of discharge shows improvement in congestive changes. DVT prophylaxis provided. Blood pressure was managed with JUAN inhibitor and was stable. The patient was working with physical therapist. Pain management was addressed. Antitussive provided as needed. Bowel regimen instituted. Hemoglobin and hematocrit were closely monitored and at the baseline, no trend down. The patient was stable for discharge. DISCHARGE DIAGNOSES: Include, 1. Acute hypercapnic respiratory failure. 2. Acute diastolic congestive heart failure. 3. Chronic obstructive pulmonary disease. 4. Obstructive sleep apnea. 5. Atypical chest pain. 6. Morbid obesity. 7. Tobacco disorder. 8. Anemia. 9. Hyperlipidemia. Of note, the patient was counseled on smoking cessation. The patient declined nicotine patch. The patient continued on aspirin and statin. DISCHARGE MEDICATIONS: See medication reconciliation list. DISCHARGE INSTRUCTIONS: The patient discharged home with home health services. Follow up with primary medical doctor next week. Of note, the patient discharged on maintenance inhaler such as QVAR and Spiriva as well as the rescue inhaler, Xopenex. The patient was encouraged to use them both on a regular basis. Win Ro M.D. I have been assigned to dictate discharge summary on this account and I was not involved in the patient's management. Arminda Gilbertal[facility] medical centerpriyanka N.PJohnie DR: ALEX JOB#: [id number] CC:
== END 2017-07-05 15:30 | disposition home or self-care (01) | DRG 291 ==
LOC: EMR 16:52 → 2E 17:55 → EDBEDREQ 20:49 → 2E 07-01 12:12
DX: I50.31 Acute diastolic (congestive) heart failure (principal); J96.02 Acute respiratory failure with hypercapnia; J44.1 Chronic obstructive pulmonary disease with (acute) exacerbation; Z68.43 Body mass index [BMI] 50.0-59.9, adult; E66.01 Morbid (severe) obesity due to excess calories; E11.9 Type 2 diabetes mellitus without complications; G47.33 Obstructive sleep apnea (adult) (pediatric); R07.89 Other chest pain; F17.200 Nicotine dependence, unspecified, uncomplicated; E78.5 Hyperlipidemia, unspecified; F32.9 Major depressive disorder, single episode, unspecified; I10 Essential (primary) hypertension; F41.9 Anxiety disorder, unspecified; G47.00 Insomnia, unspecified
CPT/HCPCS: 36415; 71010; 80048; 80053; 80069; 81003; 82550; 82553; 83690; 83880; 84484; 85007; 85025; 85610; 85730; 87040; 93005; 93306; 93970; 94640; 94664; 94760; J2405; J7620; J8499

== ENCOUNTER 2017-07-21 15:54 | Inpatient (IN) | payer MEDICARE, OTHER ==
[~2017-07-21] VITALS: Ht 167.6 cm; Wt 137.5 kg
[~2017-07-21 15:54] MED LIST changes: +ATORVASTATIN CA80 MG ORAL; +LASIX20 M1 ORAL; +MAGNESIUM400 M1 PO; +METOPROLOL TART50 M1 ORAL; +PROMETHAZINE HCL PO; +QVAR7.3 GM INH; +TRAMADOL HCL50 MG ORAL; +ZANTAC150 MG ORAL
[2017-07-21] MEDS ORDERED: Solu-MEDROL 125mg Inj IVP ONE (16:00)
[2017-07-21 16:11] VITALS: BP 141/68
[2017-07-21] MEDS: DuoNeb 0.5-3(2.5)mg/3ml neb HHN SCH ×3 (16:23→16:45)
--- NOTE | 2017-07-21 17:11 | Emergency Room Report ---
History of Present Illness General Chief Complaint: Upper Respiratory Illness Source: Patient Present Illness HPI Patient is a 52-year-old female brought in by EMS after increased difficulty breathing. Patient prior history of asthma. She been noted be on home O2. Patient had noticed increased swelling to both legs. Patient had increased difficulty breathing. Patient brought in by EMS after worsening of her asthma. The patient had previously been taking albuterol. She denies taking any diuretics. She states that she has not been having any fever. She reported having worsening shortness of breath. Patient does not take steroids regularly. Allergies: Coded Allergies: IODINE (Verified Allergy, Severe, Anaphylaxis, 05/05/17) Lettuce (Verified Allergy, Severe, Anaphylaxis, 06/24/15) SHELLFISH DERIVED (Verified Allergy, Severe, Anaphylaxis, 05/05/17) Uncoded Allergies: SEAFOOD (Allergy, Unknown, 07/21/17) Patient History Past Medical History: see triage record Reviewed Nursing Documentation: PMH: Agreed, PSxH: Agreed Nursing Documentation-PMH Hx Cardiac Problems: Yes Hx Hypertension: Yes Hx Pacemaker: No Hx Asthma: Yes Hx COPD: Yes Hx Diabetes: Yes Hx Cancer: No Hx Gastrointestinal Problems: Yes Hx Dialysis: No Hx Neurological Problems: Yes Hx Cerebrovascular Accident: No Hx Seizures: No Hx Dizziness: Yes Hx Headaches: Yes Hx Numbness: Yes - Lt. two finger Review of Systems All Other Systems: negative except mentioned in HPI Physical Exam Vital Signs Date Time Temp Pulse Resp B/P (MAP) Pulse Ox O2 Delivery O2 Flow Rate FiO2 07/21/17 15:47 98.2 71 20 141/68 99 6.0 07/21/17 16:11 Bi-pap 07/21/17 16:14 40 Sp02 EP Interpretation: reviewed, normal General Appearance: normal inspection, alert, GCS 15, non-toxic, moderate distress, obese Head: atraumatic ENT: normal ENT inspection, hearing grossly normal, normal voice Neck: normal inspection, full range of motion, supple, no bony tend Respiratory: normal inspection, no respiratory distress, no retraction, wheezing Cardiovascular #1: regular rate, rhythm, no edema Gastrointestinal: normal inspection, normal bowel sounds, non tender, soft, no guarding, no hernia Genitourinary: no CVA tenderness Musculoskeletal: normal inspection, back normal, normal range of motion Neurologic: normal inspection, alert, oriented x3, responsive, probation counselor III-XII nml as tested, speech normal Psychiatric: normal inspection, judgement/insight normal, mood/affect normal Skin: normal inspection, normal color, no rash Medical Decision Making Diagnostic Impression: Primary Impression: CHF (congestive heart failure) Additional Impressions: Respiratory failure with hypoxia Morbid obesity ER Course Patient presented for shortness of breath.Differential included but was not limited to anemia, pneumonia, pneumothorax, myocardial infarction, pericardial effusion, congestive heart failure, acidosis. Because of complexity of patient' s case laboratory testing and imaging studies were ordered. The patient noted be markedly short of breath. Patient was given IV Medrol as well as breathing treatments. She started on BiPAP. Patient was noted to be severely short of breath . She had some improvement after BiPAP. EKG interpreted by me showed normal sinus rhythm with a rate of 66 with diffuse T wave inversion . Dr. Ro was contacted for inpatient management due to complexity of medical condition. Labs Test 07/21/17 18:00 White Blood Count 9.2 K/UL (4.8-10.8) Red Blood Count 4.21 M/UL (4.20-5.40) Hemoglobin 10.0 G/DL (12.0-16.0) Hematocrit 32.3 % (37.0-47.0) Mean Corpuscular Volume 77 FL (80-99) Mean Corpuscular Hemoglobin 23.7 PG (27.0-31.0) Mean Corpuscular Hemoglobin Concent 30.9 G/DL (32.0-36.0) Red Cell Distribution Width 20.0 % (11.6-14.8) Platelet Count 261 K/UL (150-450) Mean Platelet Volume 5.6 FL (6.5-10.1) Neutrophils (%) (Auto) 66.9 % (45.0-75.0) Lymphocytes (%) (Auto) 25.7 % (20.0-45.0) Monocytes (%) (Auto) 4.1 % (1.0-10.0) Eosinophils (%) (Auto) 2.4 % (0.0-3.0) Basophils (%) (Auto) 1.0 % (0.0-2.0) Urine Color Yellow Urine Appearance Clear Urine pH 6 (4.5-8.0) Urine Specific [place] 1.020 (1.005-1.035) Urine Protein 1+ (NEGATIVE) Urine Glucose (UA) Negative (NEGATIVE) Urine Ketones Negative (NEGATIVE) Urine Occult Blood Negative (NEGATIVE) Urine Nitrite Negative (NEGATIVE) Urine Bilirubin Negative (NEGATIVE) Urine Urobilinogen 1 MG/DL (0.0-1.0) Urine Leukocyte Esterase 3+ (NEGATIVE) Urine RBC 2-4 /HPF (0 - 2) Urine WBC 5-10 /HPF (0 - 2) Urine Squamous Epithelial Cells Few /LPF (NONE/OCC) Urine Calcium Oxalate Crystals Few /LPF (NONE) Urine Amorphous Sediment Few /LPF (NONE) Urine Bacteria Few /HPF (NONE) Urine Mucus Few /LPF (NONE/OCC) Sodium Level 143 mEQ/L (135-145) Potassium Level 3.2 mEQ/L (3.4-4.9) Chloride Level 97 mEQ/L (98-107) Carbon Dioxide Level 36 mEQ/L (20-30) Anion Gap 10 (5-15) Blood Urea Nitrogen 7 mg/dL (7-23) Creatinine 0.6 mg/dL (0.5-0.9) Estimat Glomerular Filtration Rate > 60 mL/min (>60) Glucose Level 99 mg/dL (74-106) Calcium Level 8.9 mg/dL (8.6-10.2) Total Bilirubin 0.5 mg/dL (0.0-1.2) Aspartate Amino Transf (AST/SGOT) 10 U/L (5-40) Alanine Aminotransferase (ALT/SGPT) 6 U/L (3-33) Alkaline Phosphatase 59 U/L (35-104) Troponin I < 0.30 ng/mL (<=0.30) Total Protein 6.5 g/dL (6.6-8.7) Albumin 3.8 g/dL (3.5-5.2) Globulin 2.7 g/dL Albumin/Globulin Ratio 1.4 (1.0-2.7) Thyroid Stimulating Hormone (TSH) 3.320 uIU/mL (0.300-4.500) EKG Diagnostic Results Rate: normal Rhythm: NSR ST Segments: no acute changes Rhythm Strip Diag. Results EP Interpretation: yes Rhythm: NSR, no PVC's Chest X-Ray Diagnostic Results Chest X-Ray Diagnostic Results : Chest X-Ray Ordered: Yes # of Views/Limited/Complete: 1 View Indication: Shortness of Breath EP Interpretation: Yes Interpretation: other - cardiomegaly, Impression: Other - chf Interpreting ER Provider: Electronically signed by Dr. Samy Hernandez M.D. Last Vital Signs Date Time Temp Pulse Resp B/P (MAP) Pulse Ox O2 Delivery O2 Flow Rate FiO2 07/21/17 16:14 40 07/21/17 16:11 98.2 20 141/68 99 6.0 07/21/17 16:11 71 Bi-pap Status: unchanged Disposition: ADMITTED INPATIENT Condition: Serious Referrals: NOT CHOSEN IPA/,REFERRING (PCP) Samy Hernandez Jul 21, 2017 17:11
[2017-07-21 18:25] LABS: EOSINOPHILS % (AUTO) 2.4 % (0.0-3.0); LYMPHOCYTES % (AUTO) 25.7 % (20.0-45.0); MEAN CORPUSCULAR HEMOGLOBIN 23.7 PG (27.0-31.0); MEAN CORPUSCULAR HGB CONC 30.9 G/DL (32.0-36.0); MEAN CORPUSCULAR VOLUME 77 FL (80-99); MEAN PLATELET VOLUME 5.6 FL (6.5-10.1); MONOCYTES % (AUTO) 4.1 % (1.0-10.0); NEUTROPHILS % (AUTO) 66.9 % (45.0-75.0); PLATELET COUNT 261 K/UL (150-450); RED BLOOD COUNT 4.21 M/UL (4.20-5.40); WHITE BLOOD COUNT 9.2 K/UL (4.8-10.8)
[2017-07-21] MEDS ORDERED: Miralax 17gm pkt ORAL PRN (18:30)
[2017-07-21 18:47] LABS: APPEARANCE,URINE CLEAR; KETONES,URINE NEGATIVE (NEGATIVE); LEUKOCYTE ESTERASE ,URINE 3+ (NEGATIVE); NITRITE,URINE NEGATIVE (NEGATIVE); PH,URINE 6 (4.5-8.0); PROTEIN,URINE 1+ (NEGATIVE); UROBILINOGEN,URINE 1 MG/DL (0.0-1.0)
[2017-07-21 18:49] LABS: TROPONIN I < 0.30 ng/mL (<=0.30)
[2017-07-21 18:51] LABS: ALANINE AMINOTRANSFERASE 6 U/L (3-33); ALBUMIN/GLOBULIN RATIO 1.4 (1.0-2.7); ANION GAP 10 (5-15); ASPARTATE AMINO TRANSFERASE 10 U/L (5-40); CALCIUM 8.9 mg/dL (8.6-10.2); CARBON DIOXIDE 36 mEQ/L (20-30); CHLORIDE 97 mEQ/L (98-107); CREATININE 0.6 mg/dL (0.5-0.9); GLOMERULAR FILTRATION RATE > 60 mL/min (>60); HEMOLYSIS 17; POTASSIUM 3.2 mEQ/L (3.4-4.9); SODIUM 143 mEQ/L (135-145); TOTAL PROTEIN 6.5 g/dL (6.6-8.7)
[2017-07-21 18:54] LABS: AMORPHOUS SEDIMENT,UR FEW /LPF; BACTERIA,URINE FEW /HPF; CALCIUM OXALATE CRYSTALS,UR FEW /LPF; MUCUS,URINE FEW /LPF (NONE/OCC); SQUAMOUS EPITHELIAL CELL,UR FEW /LPF (NONE/OCC)
[2017-07-21 19:00] VITALS: BP 129/85
[2017-07-21] MEDS ORDERED: DuoNeb 0.5-3(2.5)mg/3ml neb HHN SCH (21:15)
[2017-07-21] MEDS: DuoNeb 0.5-3(2.5)mg/3ml neb HHN PRN (22:27)
[2017-07-21 22:54] VITALS: BP 159/82
[2017-07-22 00:10] VITALS: BP 111/60
[2017-07-22] MEDS: Heparin 5000 units/ml inj SUBQ SCH ×3 (01:07→21:29)
[2017-07-22 04:00] VITALS: BP 108/61
[2017-07-22 05:35] LABS: MEAN CORPUSCULAR HEMOGLOBIN 23.3 PG (27.0-31.0); MEAN CORPUSCULAR HGB CONC 29.3 G/DL (32.0-36.0); MEAN CORPUSCULAR VOLUME 79 FL (80-99); MEAN PLATELET VOLUME 6.5 FL (6.5-10.1); PLATELET COUNT 304 K/UL (150-450); RED BLOOD COUNT 4.47 M/UL (4.20-5.40); RED CELL DISTRIBUTION WIDTH 20.6 % (11.6-14.8)
[2017-07-22 06:03] LABS: ANION GAP 11 (5-15); CALCIUM 9.3 mg/dL (8.6-10.2); CARBON DIOXIDE 37 mEQ/L (20-30); CHLORIDE 96 mEQ/L (98-107); CREATININE 0.7 mg/dL (0.5-0.9); GLOMERULAR FILTRATION RATE > 60 mL/min (>60); HEMOLYSIS 7; PHOSPHORUS 3.8 mg/dL (2.5-4.8); POTASSIUM 3.4 mEQ/L (3.4-4.9); SODIUM 144 mEQ/L (135-145); TROPONIN I < 0.30 ng/mL (<=0.30)
[2017-07-22] MEDS: DuoNeb 0.5-3(2.5)mg/3ml neb HHN SCH ×3 (07:20→07:22)
[2017-07-22 08:00] VITALS: BP 142/79
[2017-07-22] MEDS: Sertraline 100mg tab ORAL SCH (08:14)
[2017-07-22] MEDS: Lisinopril 20mg tab ORAL SCH (08:14)
--- NOTE | 2017-07-22 10:35 | Diagnostic Imaging Report ---
Indication:Elevated Bun and Creatinine. Technique: Grayscale and duplex Doppler imaging of the kidneys performed. Comparison: None Findings: The size, contour, and echogenicity of both kidneys are within normal limits. Both kidneys are between 11 and 12 cm in length. There is no hydronephrosis. The IVC and urinary bladder are unremarkable. Impression: Negative exam
--- NOTE | 2017-07-22 11:24 | Diagnostic Imaging Report ---
Indication: Dyspnea Comparison: 07/05/17 A single view chest radiograph was obtained. Findings: Vascular congestion interstitial edema demonstrated with cardiomegaly. Findings appear slightly worse compared to the previous occasion. Impression: Interstitial edema/CHF
--- NOTE | 2017-07-22 11:51 | Diagnostic Imaging Report ---
Indication: Dyspnea Comparison: 07/21/17 A single view chest radiograph was obtained. Findings: Interstitial edema is noted with cardiomegaly. Findings do not appear significantly different. Impression: Interstitial edema/CHF
[2017-07-22 12:00] VITALS: BP 150/77
--- NOTE | 2017-07-22 12:20 | History and Physical ---
History of Present Illness General Date patient seen: Jul 22, 2017 Reason for Hospitalization: Upper Respiratory Illness Present Illness HPI 52-year-old female with hx of CHF, morbid obesity, asthma brought in by EMS after increased difficulty breathing. Patient has increased swelling to both legs. Patient had increased difficulty breathing. The patient had previously been taking albuterol. She denies taking any diuretics. She states that she has not been having any fever. She was diagnosed to have acute respiratory failure secondary to pulmonary edema. Was started on BIPAP and transferred to [facility]> Allergies: Coded Allergies: IODINE (Verified Allergy, Severe, Anaphylaxis, 05/05/17) Lettuce (Verified Allergy, Severe, Anaphylaxis, 06/24/15) SHELLFISH DERIVED (Verified Allergy, Severe, Anaphylaxis, 05/05/17) Uncoded Allergies: SEAFOOD (Allergy, Unknown, 07/21/17) Medication History Scheduled Aspirin* (Aspir 81*), 81 MG ORAL DAILY, (Reported) Atorvastatin Calcium* (Lipitor*), 80 MG ORAL BEDTIME, (Reported) Docusate Sodium* (Colace*), 100 MG ORAL DAILY, (Reported) Furosemide* (Lasix*), 20 MG ORAL TWICE A DAY, (Reported) Levalbuterol Hcl (Xopenex*), Unknown Dose HHN Q4H, (Reported) Lisinopril (Lisinopril*), 20 MG ORAL DAILY, (Reported) Magnesium Oxide (Magnesium), 400 MG PO DAILY, (Reported) Metoprolol Tartrate* (Metoprolol Tartrate*), 25 MG ORAL EVERY 12 HOURS, ( Reported) Ranitidine Hcl* (Zantac*), 150 MG ORAL TWICE A DAY, (Reported) Sertraline Hcl* (Zoloft*), 200 MG ORAL DAILY, (Reported) Tiotropium [place]* (Spiriva*), 2 PUFF INH DAILY, (Reported) Scheduled PRN Beclomethasone Dipropionate 40MCG Oral Inh (Qvar 40*), 2 PUFFS INH for Shortness of Breath, (Reported) Diphenhydramine Hcl (Banophen), 50 MG PO DAILY PRN for Itching, (Reported) Ibuprofen* (Motrin*), 800 MG ORAL THREE TIMES A DAY PRN for Mild Pain (Pain Scale 1-3), (Reported) Nitroglycerin (Nitroglycerin), 0.4 MG SL DAILY PRN for For Pain, (Reported) Tramadol Hcl* (Ultram*), 50 MG ORAL Q8HR PRN for For Pain, (Reported) [Promethazine Hcl], 5 ML PO Q6HR PRN for For Cough, (Reported) Patient History Healthcare decision maker Resuscitation status Full Code Advanced Directive on File Past Medical/Surgical History Past Medical/Surgical History: (1) CHF (congestive heart failure) (2) Morbid obesity (3) Diabetes mellitus Review of Systems All Other Systems: negative except mentioned in HPI Physical Exam General Appearance: WD/WN, no apparent distress Lines, tubes and drains: peripheral HEENT: normocephalic, atraumatic Neck: non-tender, normal alignment Respiratory/Chest: chest wall non-tender, lungs clear Cardiovascular/Chest: normal peripheral pulses, normal rate Abdomen: normal bowel sounds, non tender Genitourinary/Rectal: normal genital exam, normal rectal exam Extremities: normal range of motion, non-tender Skin Exam: normal pigmentation Last 24 Hour Vital Signs Date Time Temp Pulse Resp B/P (MAP) Pulse Ox O2 Delivery O2 Flow Rate FiO2 07/22/17 08:14 141/79 07/22/17 08:00 97.9 80 16 142/79 97 Nasal Cannula 5.0 07/22/17 08:00 4.0 07/22/17 08:00 75 07/22/17 06:41 96 Nasal Cannula 4.0 36 07/22/17 06:41 Nasal Cannula 4.0 36 07/22/17 06:40 89 96 07/22/17 04:05 83 07/22/17 04:00 98.1 77 20 108/61 95 Nasal Cannula 5.0 07/22/17 04:00 28 07/22/17 02:30 28 07/22/17 00:10 98.2 75 19 111/60 94 Nasal Cannula 5.0 07/22/17 00:00 70 07/22/17 00:00 5.0 07/21/17 23:06 98.2 78 21 159/82 91 Nasal Cannula 5.0 40 07/21/17 22:54 98.2 78 21 159/82 91 Nasal Cannula 5.0 40 07/21/17 22:37 79 20 98 Nasal Cannula 4.0 36 07/21/17 22:27 75 23 98 Nasal Cannula 3.0 07/21/17 19:00 98.2 74 22 129/85 96 Nasal Cannula 6.0 40 07/21/17 17:44 71 22 96 Facial 40 07/21/17 16:14 40 07/21/17 16:11 98.2 20 141/68 99 6.0 07/21/17 16:11 71 20 Bi-pap 6.0 07/21/17 16:09 71 22 96 Bi-pap 40 07/21/17 15:58 71 22 96 Nasal Cannula 3.0 07/21/17 15:47 98.2 71 20 141/68 99 6.0 Laboratory Tests Test 07/21/17 18:00 07/22/17 03:55 White Blood Count 9.2 K/UL (4.8-10.8) 10.0 K/UL (4.8-10.8) Red Blood Count 4.21 M/UL (4.20-5.40) 4.47 M/UL (4.20-5.40) Hemoglobin 10.0 G/DL (12.0-16.0) L 10.4 G/DL (12.0-16.0) L Hematocrit 32.3 % (37.0-47.0) L 35.5 % (37.0-47.0) L Mean Corpuscular Volume 77 FL (80-99) L 79 FL (80-99) L Mean Corpuscular Hemoglobin 23.7 PG (27.0-31.0) L 23.3 PG (27.0-31.0) L Mean Corpuscular Hemoglobin Concent 30.9 G/DL (32.0-36.0) L 29.3 G/DL (32.0-36.0) L Red Cell Distribution Width 20.0 % (11.6-14.8) H 20.6 % (11.6-14.8) H Platelet Count 261 K/UL (150-450) 304 K/UL (150-450) Mean Platelet Volume 5.6 FL (6.5-10.1) L 6.5 FL (6.5-10.1) Neutrophils (%) (Auto) 66.9 % (45.0-75.0) % (45.0-75.0) Lymphocytes (%) (Auto) 25.7 % (20.0-45.0) % (20.0-45.0) Monocytes (%) (Auto) 4.1 % (1.0-10.0) % (1.0-10.0) Eosinophils (%) (Auto) 2.4 % (0.0-3.0) % (0.0-3.0) Basophils (%) (Auto) 1.0 % (0.0-2.0) % (0.0-2.0) Urine Color Yellow Urine Appearance Clear Urine pH 6 (4.5-8.0) Urine Specific [place] 1.020 (1.005-1.035) Urine Protein 1+ (NEGATIVE) H Urine Glucose (UA) Negative (NEGATIVE) Urine Ketones Negative (NEGATIVE) Urine Occult Blood Negative (NEGATIVE) Urine Nitrite Negative (NEGATIVE) Urine Bilirubin Negative (NEGATIVE) Urine Urobilinogen 1 MG/DL (0.0-1.0) H Urine Leukocyte Esterase 3+ (NEGATIVE) H Urine RBC 2-4 /HPF (0 - 2) H Urine WBC 5-10 /HPF (0 - 2) H Urine Squamous Epithelial Cells Few /LPF (NONE/OCC) Urine Calcium Oxalate Crystals Few /LPF (NONE) Urine Amorphous Sediment Few /LPF (NONE) H Urine Bacteria Few /HPF (NONE) Urine Mucus Few /LPF (NONE/OCC) H Sodium Level 143 mEQ/L (135-145) 144 mEQ/L (135-145) Potassium Level 3.2 mEQ/L (3.4-4.9) L 3.4 mEQ/L (3.4-4.9) Chloride Level 97 mEQ/L (98-107) L 96 mEQ/L (98-107) L Carbon Dioxide Level 36 mEQ/L (20-30) H 37 mEQ/L (20-30) H Anion Gap 10 (5-15) 11 (5-15) Blood Urea Nitrogen 7 mg/dL (7-23) 10 mg/dL (7-23) Creatinine 0.6 mg/dL (0.5-0.9) 0.7 mg/dL (0.5-0.9) Estimat Glomerular Filtration Rate > 60 mL/min (>60) > 60 mL/min (>60) Glucose Level 99 mg/dL (74-106) 143 mg/dL (74-106) H Calcium Level 8.9 mg/dL (8.6-10.2) 9.3 mg/dL (8.6-10.2) Total Bilirubin 0.5 mg/dL (0.0-1.2) Aspartate Amino Transf (AST/SGOT) 10 U/L (5-40) Alanine Aminotransferase (ALT/SGPT) 6 U/L (3-33) Alkaline Phosphatase 59 U/L (35-104) Troponin I < 0.30 ng/mL (<=0.30) < 0.30 ng/mL (<=0.30) Total Protein 6.5 g/dL (6.6-8.7) L Albumin 3.8 g/dL (3.5-5.2) 4.3 g/dL (3.5-5.2) Globulin 2.7 g/dL Albumin/Globulin Ratio 1.4 (1.0-2.7) Thyroid Stimulating Hormone (TSH) 3.320 uIU/mL (0.300-4.500) Phosphorus Level 3.8 mg/dL (2.5-4.8) Height (Feet): 5 Height (Inches): 6.00 Weight (Pounds): 304 Medications Current Medications Medications (Trade) Dose Ordered Sig/May Route PRN Reason Start Time Stop Time Status Last Admin Dose Admin Acetaminophen (Tylenol) 650 mg Q4H PRN ORAL Fever 07/21/17 18:30 08/20/17 18:29 Albuterol/ Ipratropium (DuoNeb 0.5-3(2.5)mg/3ml) 3 ml Q4H PRN HHN Shortness of Breath 07/21/17 18:30 07/26/17 18:29 07/21/17 22:27 Dextrose (Dextrose 50%) STAT PRN IV Hypoglycemia 07/21/17 18:30 08/20/17 18:29 Furosemide (Lasix) 40 mg Q8HR IV 07/21/17 22:00 08/20/17 21:59 07/22/17 08:08 Heparin Sodium (Porcine) (Heparin 5000 units/ml) 5,000 units EVERY 12 HOURS SUBQ 07/21/17 21:00 08/20/17 20:59 07/22/17 08:16 Lisinopril (Prinivil) 20 mg DAILY ORAL 07/22/17 09:00 08/21/17 08:59 07/22/17 08:14 Ondansetron HCl (Zofran) 4 mg Q6H PRN IVP Nausea & Vomiting 07/21/17 18:30 08/20/17 18:29 Polyethylene Glycol (Miralax) 17 gm DAILYPRN PRN ORAL Constipation 07/21/17 18:30 08/20/17 18:29 Promethazine HCl/ Dextromethorphan (Phenergan DM) 5 mg PRN PRN ORAL For Cough 07/22/17 12:00 08/21/17 11:59 UNV Sertraline HCl (Zoloft) 200 mg DAILY ORAL 07/22/17 09:00 08/21/17 08:59 07/22/17 08:14 Temazepam (Restoril) 15 mg HSPRN PRN ORAL Insomnia 07/21/17 18:30 07/28/17 18:29 Assessment/Plan Problem List: (1) Respiratory failure with hypoxia ICD Codes: J96.91 - Respiratory failure, unspecified with hypoxia SNOMED: 86605369579245324 (2) Acute exacerbation of CHF (congestive heart failure) ICD Codes: I50.9 - Acute exacerbation of congestive heart failure SNOMED: 92661398 (3) Purulent bronchitis ICD Codes: J41.1 - Mucopurulent chronic bronchitis SNOMED: 84360716 (4) Morbid obesity ICD Codes: E66.01 - Morbid (severe) obesity due to excess calories SNOMED: 182472950 (5) Diabetes mellitus ICD Codes: E11.9 - Type 2 diabetes mellitus without complications SNOMED: 30772293 Assessment/Plan diuretics check BNP and cxe watch electrolytes sputum c/s antibiotics IV antibiotics antitussives LAMIN NEWTON Jul 22, 2017 12:20
[2017-07-22] MEDS: Promethazine/DM 6.25mg/5ml ORAL PRN (12:59)
--- NOTE | 2017-07-22 13:38 | Diagnostic Imaging Report ---
APPROVED REPORT CPT Code: 56791 Present Symptoms Lower Extremity Edema: Bilateral Shortness of breath Comments: Technically difficult study due to vessel depth (mid-thigh and calf area). BILATERAL: Imaging reveals a patent deep venous system bilaterally. There is no evidence of thrombus within the femoral, popliteal or tibial segments. The greater saphenous veins are also within normal limits. Doppler indicates normal spontaneous flow within these segments.
--- NOTE | 2017-07-22 13:42 | Cardiology Report ---
APPROVED REPORT EKG Measurement Heart [id number] Normal sinus rhythm T wave abnormality, consider anterior ischemia Abnormal ECG
--- NOTE | 2017-07-22 14:02 | Cardiology Report ---
APPROVED REPORT EXAM: Two-dimensional and M-mode echocardiogram with Doppler and color Doppler. INDICATION Left ventricular function Technically difficult study due to poor acoustic windows. M-mode measurements not obtainable due to cardiac structure. Study quality precludes accurate assessment of regional wall motion. Normal left ventricular chamber size, systolic function and wall motion. Left ventricular ejection fraction estimated to be 60-65%. No evidence of left ventricular hypertrophy. Anterior Echo-free space, may be due to pericardial fat or effusion. Right cardiac chamber sizes are within normal limits. Moderate left atrial enlargement by 2D. Focal aortic valve sclerosis with adequate cusp excursion Thickened mitral valve leaflets with normal excursion. Mitral annulus and aortic root calcification. Pulmonic valve not well visualized. Normal tricuspid valve structure. IVC not obtainable. A color flow and spectral Doppler study was performed and revealed: No aortic regurgitation. No mitral regurgitation. Normal left ventricular diastolic function. No tricuspid regurgitation.
[2017-07-22] MEDS: DuoNeb 0.5-3(2.5)mg/3ml neb HHN PRN (14:31)
[2017-07-22 16:00] VITALS: BP 155/74
[2017-07-22 20:35] VITALS: BP 135/83
[2017-07-23] VITALS: BP 147/80
[2017-07-23 04:00] VITALS: BP 135/85
[2017-07-23 05:34] LABS: BASOPHILS % (AUTO) 0.9 % (0.0-2.0); EOSINOPHILS % (AUTO) 1.6 % (0.0-3.0); LYMPHOCYTES % (AUTO) 28.6 % (20.0-45.0); MEAN CORPUSCULAR HEMOGLOBIN 23.1 PG (27.0-31.0); MEAN CORPUSCULAR HGB CONC 29.4 G/DL (32.0-36.0); MEAN CORPUSCULAR VOLUME 79 FL (80-99); MEAN PLATELET VOLUME 6.4 FL (6.5-10.1); MONOCYTES % (AUTO) 4.4 % (1.0-10.0); NEUTROPHILS % (AUTO) 64.6 % (45.0-75.0); PLATELET COUNT 299 K/UL (150-450); RED BLOOD COUNT 4.54 M/UL (4.20-5.40); RED CELL DISTRIBUTION WIDTH 20.2 % (11.6-14.8); WHITE BLOOD COUNT 9.1 K/UL (4.8-10.8)
[2017-07-23 06:20] LABS: TROPONIN I < 0.30 ng/mL (<=0.30)
[2017-07-23 06:21] LABS: ALANINE AMINOTRANSFERASE 6 U/L (3-33); ALBUMIN/GLOBULIN RATIO 1.2 (1.0-2.7); ANION GAP 10 (5-15); ASPARTATE AMINO TRANSFERASE 12 U/L (5-40); CALCIUM 8.9 mg/dL (8.6-10.2); CARBON DIOXIDE 39 mEQ/L (20-30); CHLORIDE 94 mEQ/L (98-107); CREATININE 0.7 mg/dL (0.5-0.9); GLOMERULAR FILTRATION RATE > 60 mL/min (>60); HEMOLYSIS 1; POTASSIUM 3.3 mEQ/L (3.4-4.9); SODIUM 143 mEQ/L (135-145); TOTAL PROTEIN 7.3 g/dL (6.6-8.7)
[2017-07-23 08:00] VITALS: BP 157/92
[2017-07-23] MEDS: Lisinopril 20mg tab ORAL SCH (08:29)
[2017-07-23] MEDS: Sertraline 100mg tab ORAL SCH (08:29)
[2017-07-23] MEDS: Heparin 5000 units/ml inj SUBQ SCH ×2 (08:32→20:03)
[2017-07-23] MEDS ORDERED: traMADol 50mg tab ORAL PRN ×4 (10:00→15:30)
--- NOTE | 2017-07-23 11:20 | Pulmonology Progress Note ---
Assessment/Plan Problems: (1) Respiratory failure with hypoxia (2) Acute exacerbation of CHF (congestive heart failure) (3) Purulent bronchitis (4) Morbid obesity (5) Diabetes mellitus Assessment/Plan imrpovng, she states she is 80% better toradol for chest pain continue diuretics keep in elif Subjective ROS Limited/Unobtainable: No Constitutional: Reports: no symptoms HEENT: Repors: no symptoms Respiratory: Reports: no symptoms Cardiovascular: Reports: no symptoms Allergies: Coded Allergies: IODINE (Verified Allergy, Severe, Anaphylaxis, 05/05/17) Lettuce (Verified Allergy, Severe, Anaphylaxis, 06/24/15) SHELLFISH DERIVED (Verified Allergy, Severe, Anaphylaxis, 05/05/17) Uncoded Allergies: SEAFOOD (Allergy, Unknown, 07/21/17) Objective Last 24 Hour Vital Signs Date Time Temp Pulse Resp B/P (MAP) Pulse Ox O2 Delivery O2 Flow Rate FiO2 07/23/17 09:20 98.1 07/23/17 08:29 157/92 07/23/17 08:00 84 07/23/17 08:00 97.7 89 22 157/92 98 Nasal Cannula 3.0 07/23/17 08:00 3.0 07/23/17 06:45 Nasal Cannula 4.0 36 07/23/17 06:45 96 Nasal Cannula 4.0 36 07/23/17 04:00 4.0 07/23/17 04:00 87 07/23/17 04:00 98.1 84 24 135/85 94 Nasal Cannula 4.0 07/23/17 00:00 99.0 64 24 147/80 96 Bi-pap 40 07/23/17 00:00 73 07/22/17 23:31 73 07/22/17 23:30 79 23 96 Facial 40 07/22/17 23:00 4.0 07/22/17 22:36 76 19 98 Facial 40 07/22/17 22:00 28 07/22/17 21:00 4.0 07/22/17 20:35 98.6 77 20 135/83 94 Nasal Cannula 2.0 07/22/17 20:00 70 07/22/17 20:00 4.0 07/22/17 19:30 92 Nasal Cannula 4.0 36 07/22/17 19:30 Nasal Cannula 4.0 36 07/22/17 16:00 97.7 78 16 155/74 96 Nasal Cannula 5.0 07/22/17 16:00 70 07/22/17 16:00 4.0 07/22/17 14:30 74 20 100 Nasal Cannula 3.0 32 07/22/17 14:25 77 20 98 Nasal Cannula 3.0 32 07/22/17 12:00 4.0 07/22/17 12:00 98.2 76 20 150/77 98 Nasal Cannula 5.0 07/22/17 12:00 78 General Appearance: WD/WN HEENT: normocephalic, anicteric Respiratory/Chest: chest wall non-tender, lungs clear Breasts: no masses Cardiovascular: normal peripheral pulses, normal rate Abdomen: normal bowel sounds, soft, non tender Genitourinary: normal external genitalia Extremities: no clubbing Skin: no lesions Laboratory Tests 07/23/17 04:00: White Blood Count 9.1, Red Blood Count 4.54, Hemoglobin 10.5L, Hematocrit 35.7L , Mean Corpuscular Volume 79L, Mean Corpuscular Hemoglobin 23.1L, Mean Corpuscular Hemoglobin Concent 29.4L, Red Cell Distribution Width 20.2H, Platelet Count 299, Mean Platelet Volume 6.4L, Neutrophils (%) (Auto) 64.6, Lymphocytes (%) (Auto) 28.6, Monocytes (%) (Auto) 4.4, Eosinophils (%) (Auto) 1.6, Basophils (%) (Auto) 0.9, Sodium Level 143, Potassium Level 3.3L, Chloride Level 94L, Carbon Dioxide Level 39H, Anion Gap 10, Blood Urea Nitrogen 12, Creatinine 0.7, Estimat Glomerular Filtration Rate > 60, Glucose Level 109H, Calcium Level 8.9, Total Bilirubin 0.4, Aspartate Amino Transf (AST/SGOT) 12, Alanine Aminotransferase (ALT/SGPT) 6, Alkaline Phosphatase 65, Troponin I < 0.30, Pro-B-Type Natriuretic Peptide 217H, Total Protein 7.3, Albumin 4.1, Globulin 3.2, Albumin/Globulin Ratio 1.2 Current Medications Medications (Trade) Dose Ordered Sig/May Route PRN Reason Start Time Stop Time Status Last Admin Dose Admin Acetaminophen (Tylenol) 650 mg Q4H PRN ORAL Fever 07/21/17 18:30 08/20/17 18:29 Albuterol/ Ipratropium (DuoNeb 0.5-3(2.5)mg/3ml) 3 ml Q4H PRN HHN Shortness of Breath 07/21/17 18:30 07/26/17 18:29 07/22/17 14:31 Dextrose (Dextrose 50%) STAT PRN IV Hypoglycemia 07/21/17 18:30 08/20/17 18:29 Furosemide (Lasix) 40 mg Q8HR IV 07/21/17 22:00 08/20/17 21:59 07/23/17 06:36 Heparin Sodium (Porcine) (Heparin 5000 units/ml) 5,000 units EVERY 12 HOURS SUBQ 07/21/17 21:00 08/20/17 20:59 07/23/17 08:32 Ibuprofen (Motrin) 600 mg TIDPRN PRN ORAL For MILD Pain 07/23/17 10:45 08/22/17 10:44 Ketorolac Tromethamine (Toradol 30mg) 15 mg Q6H PRN IV severe pain 07/23/17 11:15 07/28/17 11:14 UNV Levofloxacin 100 ml @ 100 mls/hr Q24H IVPB 07/22/17 14:00 07/29/17 13:59 07/22/17 13:00 Lisinopril (Prinivil) 20 mg DAILY ORAL 07/22/17 09:00 08/21/17 08:59 07/23/17 08:29 Ondansetron HCl (Zofran) 4 mg Q6H PRN IVP Nausea & Vomiting 07/21/17 18:30 08/20/17 18:29 Polyethylene Glycol (Miralax) 17 gm DAILYPRN PRN ORAL Constipation 07/21/17 18:30 08/20/17 18:29 Promethazine HCl/ Dextromethorphan (Phenergan DM) 6.25 mg Q4H PRN ORAL For Cough 07/22/17 12:30 08/21/17 12:29 07/22/17 12:59 Sertraline HCl (Zoloft) 200 mg DAILY ORAL 07/22/17 09:00 08/21/17 08:59 07/23/17 08:29 Temazepam (Restoril) 15 mg HSPRN PRN ORAL Insomnia 07/21/17 18:30 07/28/17 18:29 Tramadol HCl (Ultram) 50 mg Q8HR PRN ORAL For SEVERE Pain 07/23/17 10:45 07/30/17 10:44 07/23/17 10:47 LAMIN NEWTON Jul 23, 2017 11:20
--- NOTE | 2017-07-23 11:59 | Diagnostic Imaging Report ---
Indication: Dyspnea Comparison: 07/22/17 A single view chest radiograph was obtained. Findings: Interstitial edema is suspected once again. Cardiomegaly is again noted. No change appreciated. Impression: No change attendant the last day
[2017-07-23 12:00] VITALS: BP 129/73
[2017-07-23 16:00] VITALS: BP 124/80
[2017-07-23] MEDS ORDERED: NS 275ml ONE (16:44)
[2017-07-23] MEDS ORDERED: Tubing IV Secondary IV ONE (16:44)
[2017-07-23] MEDS: Ketorolac 30mg Inj IV PRN (18:13)
[2017-07-23 20:36] VITALS: BP 146/78
[2017-07-24 00:53] VITALS: BP 148/71
[2017-07-24 04:00] VITALS: BP 102/56
[2017-07-24] MEDS: Ketorolac 30mg Inj IV PRN (04:51)
[2017-07-24 05:45] LABS: BASOPHILS % (AUTO) 1.4 % (0.0-2.0); EOSINOPHILS % (AUTO) 3.6 % (0.0-3.0); LYMPHOCYTES % (AUTO) 32.5 % (20.0-45.0); MEAN CORPUSCULAR HEMOGLOBIN 23.4 PG (27.0-31.0); MEAN CORPUSCULAR HGB CONC 29.5 G/DL (32.0-36.0); MEAN CORPUSCULAR VOLUME 79 FL (80-99); MEAN PLATELET VOLUME 5.9 FL (6.5-10.1); NEUTROPHILS % (AUTO) 57.5 % (45.0-75.0); PLATELET COUNT 305 K/UL (150-450); RED BLOOD COUNT 4.79 M/UL (4.20-5.40); RED CELL DISTRIBUTION WIDTH 20.1 % (11.6-14.8); WHITE BLOOD COUNT 8.5 K/UL (4.8-10.8)
[2017-07-24 06:13] LABS: ALANINE AMINOTRANSFERASE 7 U/L (3-33); ALBUMIN/GLOBULIN RATIO 1.3 (1.0-2.7); ASPARTATE AMINO TRANSFERASE 12 U/L (5-40); CALCIUM 9.2 mg/dL (8.6-10.2); CHLORIDE 90 mEQ/L (98-107); CREATININE 0.7 mg/dL (0.5-0.9); GLOMERULAR FILTRATION RATE > 60 mL/min (>60); HEMOLYSIS 1; POTASSIUM 3.3 mEQ/L (3.4-4.9); SODIUM 140 mEQ/L (135-145); TOTAL PROTEIN 7.3 g/dL (6.6-8.7)
[2017-07-24 06:27] LABS: ANION GAP 10 (5-15); CARBON DIOXIDE 40 mEQ/L (20-30)
[2017-07-24 08:00] VITALS: BP 110/54
[2017-07-24] MEDS: Lisinopril 20mg tab ORAL SCH (08:55)
[2017-07-24] MEDS: Sertraline 100mg tab ORAL SCH (08:56)
[2017-07-24] MEDS: Heparin 5000 units/ml inj SUBQ SCH ×2 (08:57→21:27)
--- NOTE | 2017-07-24 09:10 | Diagnostic Imaging Report ---
Indication: Dyspnea Comparison: 07/23/17 A single view chest radiograph was obtained. Findings: Pulmonary vascularity is prominent within the lungs. The heart is enlarged. Bones are unremarkable. Impression: Mild CHF
[2017-07-24 12:00] VITALS: BP 110/62
[2017-07-24 16:00] VITALS: BP 122/74
--- NOTE | 2017-07-24 17:44 | Pulmonology Progress Note ---
Assessment/Plan Assessment/Plan ASSESSMENT Acute hypoxemic respiratory failure acute on chronic diastolic CHF Purulent bronchitis Morbid obesity Anemia HTN nicotine dependency PLAN OF CARE [facility] IV diuresis Monitor I/O, renal parameters, lytes O2 to keep sat above 92%, pulmonary toilet BiPAP at night, encourage compliance Sputum cx Empiric abx Antitussive prn CXR+ CHF ECHO with EF 60-65% Fup with pro BNP, CXR - pro BNP down, CXR + mild CHf Venous Duplex BKLE negative for acute DVT Renal US negative BP management with JUAN DVT prophylaxis HH at baseline, monitor replace K, check K and Mg in am case discussed and evaluated by supervising physician Subjective Allergies: Coded Allergies: IODINE (Verified Allergy, Severe, Anaphylaxis, 05/05/17) Lettuce (Verified Allergy, Severe, Anaphylaxis, 06/24/15) SHELLFISH DERIVED (Verified Allergy, Severe, Anaphylaxis, 05/05/17) Uncoded Allergies: SEAFOOD (Allergy, Unknown, 07/21/17) Subjective feeling better on o2 via NC sat stable intermittent SOB less leg edema BiPAP at night, not using consistently Objective Last 24 Hour Vital Signs Date Time Temp Pulse Resp B/P (MAP) Pulse Ox O2 Delivery O2 Flow Rate FiO2 07/24/17 16:35 84 07/24/17 16:00 97.8 63 22 122/74 95 Nasal Cannula 3.0 07/24/17 12:00 89 07/24/17 12:00 97.5 88 18 110/62 94 Nasal Cannula 3.0 07/24/17 12:00 3.0 07/24/17 08:55 110/54 07/24/17 08:40 80 07/24/17 08:00 3.0 07/24/17 08:00 97.3 90 20 110/54 95 Nasal Cannula 07/24/17 07:10 Nasal Cannula 3.0 07/24/17 07:10 98 Nasal Cannula 3.0 07/24/17 05:24 98.4 07/24/17 04:00 98.0 75 20 102/56 90 Nasal Cannula 4.0 07/24/17 04:00 2.0 07/24/17 04:00 88 07/24/17 00:53 98.4 68 18 148/71 98 Bi-pap 40 07/24/17 00:00 2.0 07/23/17 22:50 82 22 95 Facial 40 8/25/17 20:36 98.0 81 24 146/78 97 Nasal Cannula 4.0 07/23/17 20:00 2.0 07/23/17 20:00 74 07/23/17 19:24 98 Nasal Cannula 3.0 32 07/23/17 19:24 Nasal Cannula 3.0 32 Intake and Output 07/24/17 07/25/17 19:00 07:00 Intake Total 500 ml Balance 500 ml Intake Oral 400 ml IV Total 100 ml General Appearance: no acute distress, other - A/A/O x 4 morbidly obese AA female HEENT: normocephalic, atraumatic, anicteric, mucous membranes moist, PERRL Respiratory/Chest: crackles/rales - few isoalted crackles at bases Cardiovascular: normal rate, regular rhythm - SR on tele Abdomen: normal bowel sounds, soft, non tender - obese Neurologic/Psychiatric: no motor/sensory deficits, alert, oriented x 3, responsive Musculoskeletal: normal muscle bulk Laboratory Tests 07/24/17 03:15: White Blood Count 8.5, Red Blood Count 4.79, Hemoglobin 11.2L, Hematocrit 38.0, Mean Corpuscular Volume 79L, Mean Corpuscular Hemoglobin 23.4L, Mean Corpuscular Hemoglobin Concent 29.5L, Red Cell Distribution Width 20.1H, Platelet Count 305, Mean Platelet Volume 5.9L, Neutrophils (%) (Auto) 57.5, Lymphocytes (%) (Auto) 32.5, Monocytes (%) (Auto) 5.0, Eosinophils (%) (Auto) 3.6H, Basophils (%) (Auto) 1.4, Sodium Level 140, Potassium Level 3.3L, Chloride Level 90L, Carbon Dioxide Level 40H, Anion Gap 10, Blood Urea Nitrogen 12, Creatinine 0.7, Estimat Glomerular Filtration Rate > 60, Glucose Level 96, Calcium Level 9.2, Total Bilirubin 0.4, Aspartate Amino Transf (AST/SGOT) 12, Alanine Aminotransferase (ALT/SGPT) 7, Alkaline Phosphatase 66, Pro-B-Type Natriuretic Peptide 81, Total Protein 7.3, Albumin 4.2, Globulin 3.1, Albumin/ Globulin Ratio 1.3 Current Medications Medications (Trade) Dose Ordered Sig/May Route PRN Reason Start Time Stop Time Status Last Admin Dose Admin Acetaminophen (Tylenol) 650 mg Q4H PRN ORAL Fever 07/21/17 18:30 08/20/17 18:29 Albuterol/ Ipratropium (DuoNeb 0.5-3(2.5)mg/3ml) 3 ml Q4H PRN HHN Shortness of Breath 07/21/17 18:30 07/26/17 18:29 07/22/17 14:31 Dextrose (Dextrose 50%) STAT PRN IV Hypoglycemia 07/21/17 18:30 08/20/17 18:29 Furosemide (Lasix) 40 mg Q8HR IV 07/21/17 22:00 08/20/17 21:59 07/24/17 13:52 Heparin Sodium (Porcine) (Heparin 5000 units/ml) 5,000 units EVERY 12 HOURS SUBQ 07/21/17 21:00 08/20/17 20:59 07/24/17 08:57 Ibuprofen (Motrin) 600 mg TIDPRN PRN ORAL Mild Pain (Pain Scale 1-3) 07/23/17 15:30 08/22/17 10:44 Ketorolac Tromethamine (Toradol 30mg) 15 mg Q6H PRN IV SEVERE BREAKTHROUGH PAIN 07/23/17 11:15 07/28/17 11:14 07/24/17 04:51 Levofloxacin 100 ml @ 100 mls/hr Q24H IVPB 07/22/17 14:00 07/29/17 13:59 07/24/17 13:52 Lisinopril (Prinivil) 20 mg DAILY ORAL 07/22/17 09:00 08/21/17 08:59 07/24/17 08:55 Ondansetron HCl (Zofran) 4 mg Q6H PRN IVP Nausea & Vomiting 07/21/17 18:30 08/20/17 18:29 Polyethylene Glycol (Miralax) 17 gm DAILYPRN PRN ORAL Constipation 07/21/17 18:30 08/20/17 18:29 Promethazine HCl/ Dextromethorphan (Phenergan DM) 6.25 mg Q4H PRN ORAL For Cough 07/22/17 12:30 08/21/17 12:29 07/22/17 12:59 Sertraline HCl (Zoloft) 200 mg DAILY ORAL 07/22/17 09:00 08/21/17 08:59 07/24/17 08:56 Temazepam (Restoril) 15 mg HSPRN PRN ORAL Insomnia 07/21/17 18:30 07/28/17 18:29 Tramadol HCl (Ultram) 50 mg Q8H PRN ORAL PAIN 4-10 07/23/17 15:30 07/30/17 10:44 [facility] ([facility])Arminda NP Jul 24, 2017 17:44
[2017-07-24] MEDS ORDERED: DuoNeb 0.5-3(2.5)mg/3ml neb HHN PRN (18:00)
[2017-07-24 20:00] VITALS: BP 108/66
[2017-07-24] MEDS: Promethazine/DM 6.25mg/5ml ORAL PRN (21:27)
[2017-07-25] VITALS (7 sets, daily range): BP systolic 97–123; BP diastolic 53–72
[2017-07-25 05:05] LABS: BASOPHILS % (AUTO) 0.9 % (0.0-2.0); EOSINOPHILS % (AUTO) 3.8 % (0.0-3.0); LYMPHOCYTES % (AUTO) 31.3 % (20.0-45.0); MEAN CORPUSCULAR HEMOGLOBIN 23.4 PG (27.0-31.0); MEAN CORPUSCULAR HGB CONC 29.6 G/DL (32.0-36.0); MEAN CORPUSCULAR VOLUME 79 FL (80-99); MEAN PLATELET VOLUME 6.6 FL (6.5-10.1); MONOCYTES % (AUTO) 6.6 % (1.0-10.0); NEUTROPHILS % (AUTO) 57.4 % (45.0-75.0); PLATELET COUNT 292 K/UL (150-450); RED BLOOD COUNT 4.68 M/UL (4.20-5.40); RED CELL DISTRIBUTION WIDTH 19.9 % (11.6-14.8); WHITE BLOOD COUNT 8.7 K/UL (4.8-10.8)
[2017-07-25 05:40] LABS: CALCIUM 9.4 mg/dL (8.6-10.2); CHLORIDE 92 mEQ/L (98-107); CREATININE 0.6 mg/dL (0.5-0.9); GLOMERULAR FILTRATION RATE > 60 mL/min (>60); HEMOLYSIS 1; POTASSIUM 3.5 mEQ/L (3.4-4.9); SODIUM 143 mEQ/L (135-145)
[2017-07-25 05:45] LABS: ANION GAP 10 (5-15)
[2017-07-25 06:22] LABS: CARBON DIOXIDE 41 mEQ/L (20-30)
[2017-07-25] MEDS: Lisinopril 20mg tab ORAL SCH (10:49)
[2017-07-25] MEDS: Sertraline 100mg tab ORAL SCH (10:50)
[2017-07-25] MEDS: Heparin 5000 units/ml inj SUBQ SCH ×2 (10:51→20:00)
--- NOTE | 2017-07-25 12:45 | Pulmonology Progress Note ---
Assessment/Plan Assessment/Plan ASSESSMENT Acute hypoxemic respiratory failure acute on chronic diastolic CHF Purulent bronchitis Morbid obesity Anemia HTN nicotine dependency PLAN OF CARE [facility] IV diuresis, continue for one more day Monitor I/O, renal parameters, lytes O2 to keep sat above 92%, pulmonary toilet BiPAP at night, encourage compliance Sputum cx if able Empiric abx Antitussive prn CXR+ CHF ECHO with EF 60-65% Fup with pro BNP, CXR - pro BNP down, CXR + mild CHF Venous Duplex BKLE negative for acute DVT Renal US negative BP management with JUAN , stable DVT prophylaxis HH at baseline, monitor replace Mg , check 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, not ready to quit, declined Nicotine patch case discussed and evaluated by supervising physician Subjective Allergies: Coded Allergies: IODINE (Verified Allergy, Severe, Anaphylaxis, 05/05/17) Lettuce (Verified Allergy, Severe, Anaphylaxis, 06/24/15) SHELLFISH DERIVED (Verified Allergy, Severe, Anaphylaxis, 05/05/17) Uncoded Allergies: SEAFOOD (Allergy, Unknown, 07/21/17) Subjective feeling better on o2 via NC sat stable intermittent SOB less leg edema BiPAP at night, not using consistently Mg-1.6 Objective Last 24 Hour Vital Signs Date Time Temp Pulse Resp B/P (MAP) Pulse Ox O2 Delivery O2 Flow Rate FiO2 07/25/17 11:23 3.0 07/25/17 11:23 85 07/25/17 10:49 112/69 07/25/17 08:00 98.2 96 19 97/53 95 Nasal Cannula 3.0 07/25/17 08:00 3.0 07/25/17 08:00 78 07/25/17 07:00 98 Nasal Cannula 3.0 32 07/25/17 07:00 Nasal Cannula 3.0 32 07/25/17 04:00 98.0 95 32 123/65 97 Nasal Cannula 4.0 07/25/17 04:00 3.0 07/25/17 04:00 8 07/25/17 01:45 91 20 97 Facial 40 07/25/17 00:00 98.0 92 28 99/59 95 Nasal Cannula 4.0 07/24/17 23:44 87 24 98 Facial 40 07/24/17 20:00 97.9 82 22 108/66 95 Nasal Cannula 3.0 07/24/17 20:00 92 07/24/17 20:00 3.0 07/24/17 18:43 Nasal Cannula 3.0 32 07/24/17 18:43 98 Nasal Cannula 3.0 32 07/24/17 16:35 84 07/24/17 16:00 3.0 07/24/17 16:00 97.8 63 22 122/74 95 Nasal Cannula 3.0 Objective General Appearance: no acute distress, A/A/O x 4 morbidly obese AA female HEENT: normocephalic, atraumatic, anicteric, mucous membranes moist, PERRL Respiratory/Chest: few isolated crackles at bases Cardiovascular: normal rate, regular rhythm - SR on tele with frequent PVC Abdomen: normal bowel sounds, soft, non tender - obese Neurologic/Psychiatric: no motor/sensory deficits, alert, oriented x 3, responsive Musculoskeletal: normal muscle bulk Laboratory Tests 07/25/17 03:55: White Blood Count 8.7, Red Blood Count 4.68, Hemoglobin 10.9L, Hematocrit 36.9L , Mean Corpuscular Volume 79L, Mean Corpuscular Hemoglobin 23.4L, Mean Corpuscular Hemoglobin Concent 29.6L, Red Cell Distribution Width 19.9H, Platelet Count 292, Mean Platelet Volume 6.6, Neutrophils (%) (Auto) 57.4, Lymphocytes (%) (Auto) 31.3, Monocytes (%) (Auto) 6.6, Eosinophils (%) (Auto) 3.8H, Basophils (%) (Auto) 0.9, Sodium Level 143, Potassium Level 3.5, Chloride Level 92L, Carbon Dioxide Level 41*H, Anion Gap 10, Blood Urea Nitrogen 11, Creatinine 0.6, Estimat Glomerular Filtration Rate > 60, Glucose Level 115H, Calcium Level 9.4, Magnesium Level 1.6L Current Medications Medications (Trade) Dose Ordered Sig/May Route PRN Reason Start Time Stop Time Status Last Admin Dose Admin Acetaminophen (Tylenol) 650 mg Q4H PRN ORAL Fever 07/21/17 18:30 08/20/17 18:29 Albuterol/ Ipratropium (DuoNeb 0.5-3(2.5)mg/3ml) 3 ml Q4H PRN HHN Shortness of Breath 07/24/17 18:00 07/29/17 17:59 Dextrose (Dextrose 50%) STAT PRN IV Hypoglycemia 07/21/17 18:30 08/20/17 18:29 Furosemide (Lasix) 40 mg Q8HR IV 07/21/17 22:00 08/20/17 21:59 07/25/17 06:26 Heparin Sodium (Porcine) (Heparin 5000 units/ml) 5,000 units EVERY 12 HOURS SUBQ 07/21/17 21:00 08/20/17 20:59 07/25/17 10:51 Ibuprofen (Motrin) 600 mg TIDPRN PRN ORAL Mild Pain (Pain Scale 1-3) 07/23/17 15:30 08/22/17 10:44 Ketorolac Tromethamine (Toradol 30mg) 15 mg Q6H PRN IV SEVERE BREAKTHROUGH PAIN 07/23/17 11:15 07/28/17 11:14 07/24/17 04:51 Levofloxacin 100 ml @ 100 mls/hr Q24H IVPB 07/22/17 14:00 07/29/17 13:59 07/24/17 13:52 Lisinopril (Prinivil) 20 mg DAILY ORAL 07/22/17 09:00 08/21/17 08:59 07/25/17 10:49 Ondansetron HCl (Zofran) 4 mg Q6H PRN IVP Nausea & Vomiting 07/21/17 18:30 08/20/17 18:29 Polyethylene Glycol (Miralax) 17 gm DAILYPRN PRN ORAL Constipation 07/21/17 18:30 08/20/17 18:29 07/25/17 11:46 Promethazine HCl/ Dextromethorphan (Phenergan DM) 6.25 mg Q4H PRN ORAL For Cough 07/22/17 12:30 08/21/17 12:29 07/24/17 21:27 Sertraline HCl (Zoloft) 200 mg DAILY ORAL 07/22/17 09:00 08/21/17 08:59 07/25/17 10:50 Temazepam (Restoril) 15 mg HSPRN PRN ORAL Insomnia 07/21/17 18:30 07/28/17 18:29 Tramadol HCl (Ultram) 50 mg Q8H PRN ORAL PAIN 4-10 07/23/17 15:30 07/30/17 10:44 [facility] ([facility])Arminda NP Jul 25, 2017 12:45
[2017-07-26 00:49] VITALS: BP 120/68
[2017-07-26 04:00] VITALS: BP 125/52
[2017-07-26 05:03] LABS: BASOPHILS % (AUTO) 1.3 % (0.0-2.0); EOSINOPHILS % (AUTO) 3.4 % (0.0-3.0); LYMPHOCYTES % (AUTO) 30.5 % (20.0-45.0); MEAN CORPUSCULAR HGB CONC 29.5 G/DL (32.0-36.0); MEAN CORPUSCULAR VOLUME 78 FL (80-99); MEAN PLATELET VOLUME 7.2 FL (6.5-10.1); MONOCYTES % (AUTO) 6.7 % (1.0-10.0); NEUTROPHILS % (AUTO) 58.2 % (45.0-75.0); PLATELET COUNT 262 K/UL (150-450); RED BLOOD COUNT 4.68 M/UL (4.20-5.40); RED CELL DISTRIBUTION WIDTH 19.8 % (11.6-14.8); WHITE BLOOD COUNT 9.2 K/UL (4.8-10.8)
[2017-07-26 05:33] LABS: ANION GAP 10 (5-15); CALCIUM 9.6 mg/dL (8.6-10.2); CARBON DIOXIDE 38 mEQ/L (20-30); CHLORIDE 93 mEQ/L (98-107); CREATININE 0.7 mg/dL (0.5-0.9); GLOMERULAR FILTRATION RATE > 60 mL/min (>60); HEMOLYSIS 0; MAGNESIUM 1.9 mg/dL (1.7-2.5); POTASSIUM 3.7 mEQ/L (3.4-4.9); SODIUM 141 mEQ/L (135-145)
[2017-07-26 08:00] VITALS: BP 113/77
[2017-07-26] MEDS: Lisinopril 20mg tab ORAL SCH (09:48)
[2017-07-26] MEDS: Heparin 5000 units/ml inj SUBQ SCH (09:50)
[2017-07-26] MEDS: Sertraline 100mg tab ORAL SCH (10:52)
[2017-07-26 12:00] VITALS: BP 112/64
[2017-07-26] MEDS ORDERED: FUROSEMIDE40 MG ORAL (12:52)
--- NOTE | 2017-07-26 12:55 | Pulmonology Progress Note ---
Assessment/Plan Problems: (1) Respiratory failure with hypoxia (2) Acute exacerbation of CHF (congestive heart failure) (3) Purulent bronchitis (4) Morbid obesity (5) Diabetes mellitus Assessment/Plan improovng, she states she is 100% better continue diuretics dc home with close outpatient f/u Subjective ROS Limited/Unobtainable: No Constitutional: Reports: no symptoms HEENT: Repors: no symptoms Respiratory: Reports: no symptoms Cardiovascular: Reports: no symptoms Allergies: Coded Allergies: IODINE (Verified Allergy, Severe, Anaphylaxis, 05/05/17) Lettuce (Verified Allergy, Severe, Anaphylaxis, 06/24/15) SHELLFISH DERIVED (Verified Allergy, Severe, Anaphylaxis, 05/05/17) Uncoded Allergies: SEAFOOD (Allergy, Unknown, 07/21/17) Objective Last 24 Hour Vital Signs Date Time Temp Pulse Resp B/P (MAP) Pulse Ox O2 Delivery O2 Flow Rate FiO2 07/26/17 10:15 92 20 100 Nasal Cannula 3.0 32 07/26/17 10:09 93 20 98 Nasal Cannula 3.0 32 07/26/17 09:48 118/64 07/26/17 08:15 Nasal Cannula 2.0 07/26/17 08:15 95 Nasal Cannula 2.0 07/26/17 08:00 97.7 97 20 113/77 95 Nasal Cannula 2.0 07/26/17 04:00 98.0 96 24 125/52 95 Nasal Cannula 3.0 07/26/17 04:00 28 07/26/17 04:00 95 07/26/17 01:37 87 21 98 Facial 40 07/26/17 00:49 98.2 90 20 120/68 100 Bi-pap 07/26/17 00:00 28 07/26/17 00:00 80 07/25/17 23:16 94 28 97 Facial 40 07/25/17 21:19 122/60 07/25/17 20:00 97.9 87 20 99/55 95 Nasal Cannula 3.0 07/25/17 20:00 90 07/25/17 20:00 3.0 07/25/17 19:38 Nasal Cannula 2.0 28 07/25/17 19:38 93 Nasal Cannula 2.0 28 07/25/17 16:00 99.0 101 18 99/72 99 Nasal Cannula 3.0 07/25/17 16:00 3.0 07/25/17 16:00 85 General Appearance: WD/WN HEENT: normocephalic, atraumatic, anicteric Respiratory/Chest: chest wall non-tender, lungs clear Breasts: no masses Cardiovascular: normal peripheral pulses, normal rate Abdomen: normal bowel sounds, soft, non tender Genitourinary: normal external genitalia Extremities: no cyanosis Skin: no ulcers 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/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 grossly normal, abnormal gait, normal mood/ affect Lymphatic: no neck adenopathy Musculoskeletal: normal muscle bulk Laboratory Tests 07/26/17 03:45: White Blood Count 9.2, Red Blood Count 4.68, Hemoglobin 10.8L, Hematocrit 36.5L , Mean Corpuscular Volume 78L, Mean Corpuscular Hemoglobin 23.0L, Mean Corpuscular Hemoglobin Concent 29.5L, Red Cell Distribution Width 19.8H, Platelet Count 262, Mean Platelet Volume 7.2, Neutrophils (%) (Auto) 58.2, Lymphocytes (%) (Auto) 30.5, Monocytes (%) (Auto) 6.7, Eosinophils (%) (Auto) 3.4H, Basophils (%) (Auto) 1.3, Sodium Level 141, Potassium Level 3.7, Chloride Level 93L, Carbon Dioxide Level 38H, Anion Gap 10, Blood Urea Nitrogen 13, Creatinine 0.7, Estimat Glomerular Filtration Rate > 60, Glucose Level 105, Calcium Level 9.6, Magnesium Level 1.9 Current Medications Medications (Trade) Dose Ordered Sig/May Route PRN Reason Start Time Stop Time Status Last Admin Dose Admin Acetaminophen (Tylenol) 650 mg Q4H PRN ORAL Fever 07/21/17 18:30 08/20/17 18:29 Albuterol/ Ipratropium (DuoNeb 0.5-3(2.5)mg/3ml) 3 ml Q4H PRN HHN Shortness of Breath 07/24/17 18:00 07/29/17 17:59 07/26/17 10:14 Dextrose (Dextrose 50%) STAT PRN IV Hypoglycemia 07/21/17 18:30 08/20/17 18:29 Furosemide (Lasix) 40 mg Q8HR IV 07/21/17 22:00 08/20/17 21:59 07/26/17 05:21 Heparin Sodium (Porcine) (Heparin 5000 units/ml) 5,000 units EVERY 12 HOURS SUBQ 07/21/17 21:00 08/20/17 20:59 07/26/17 09:50 Ibuprofen (Motrin) 600 mg TIDPRN PRN ORAL Mild Pain (Pain Scale 1-3) 07/23/17 15:30 08/22/17 10:44 Ketorolac Tromethamine (Toradol 30mg) 15 mg Q6H PRN IV SEVERE BREAKTHROUGH PAIN 07/23/17 11:15 07/28/17 11:14 07/24/17 04:51 Levofloxacin 100 ml @ 100 mls/hr Q24H IVPB 07/22/17 14:00 07/29/17 13:59 07/25/17 16:54 Lisinopril (Prinivil) 20 mg DAILY ORAL 07/22/17 09:00 08/21/17 08:59 07/26/17 09:48 Ondansetron HCl (Zofran) 4 mg Q6H PRN IVP Nausea & Vomiting 07/21/17 18:30 08/20/17 18:29 Polyethylene Glycol (Miralax) 17 gm DAILYPRN PRN ORAL Constipation 07/21/17 18:30 08/20/17 18:29 07/25/17 11:46 Promethazine HCl/ Dextromethorphan (Phenergan DM) 6.25 mg Q4H PRN ORAL For Cough 07/22/17 12:30 08/21/17 12:29 07/24/17 21:27 Sertraline HCl (Zoloft) 200 mg DAILY ORAL 07/22/17 09:00 08/21/17 08:59 07/26/17 10:52 Temazepam (Restoril) 15 mg HSPRN PRN ORAL Insomnia 07/21/17 18:30 07/28/17 18:29 Tramadol HCl (Ultram) 50 mg Q8H PRN ORAL PAIN 4-10 07/23/17 15:30 07/30/17 10:44 LAMIN NEWTON Jul 26, 2017 12:55
--- NOTE | 2017-07-28 08:22 | Discharge Summary ---
Discharge Summary Hospital Course Date of Admission Jul 21, 2017 at 16:28 Date of Discharge Jul 26, 2017 at 13:25 Admitting Diagnosis asthma exacerbation HPI Christina Jimenez is a 52 year old female who was admitted on Jul 21, 2017 at 16:28 for Asha Exacerbation Hospital Course dc summary #[id number] Discharge Medications New Medications: Furosemide* (Lasix*) 40 Mg Tablet 40 MG ORAL TWICE A DAY for 30 Days, TAB 0 Refills Continued Medications: Aspirin* (Aspir 81*) 81 Mg Tablet.dr 81 MG ORAL DAILY, TAB Atorvastatin Calcium* (Lipitor*) 80 Mg Tablet 80 MG ORAL BEDTIME Diphenhydramine Hcl (Banophen) 25 Mg Capsule 50 MG PO DAILY PRN for Itching, CAP Levalbuterol Hcl (Xopenex*) 0.63 Mg/3 Ml Vial.neb Unknown Dose HHN Q4H for 30 Days, MG 0 Refills Lisinopril (Lisinopril*) 20 Mg Tablet 20 MG ORAL DAILY, TAB Magnesium Oxide (Magnesium) 400 Mg Capsule 400 MG PO DAILY, CAP Metoprolol Tartrate* (Metoprolol Tartrate*) 50 Mg Tablet 25 MG ORAL EVERY 12 HOURS 1/2 TAB PO BID Sertraline Hcl* (Zoloft*) 100 Mg Tablet 200 MG ORAL DAILY, TAB Discharge Condition Upon Discharge: stable Discharge Disposition Patient was discharged to Home () Discharge Diagnoses: [facility] ([facility])Arminda NP Jul 28, 2017 08:22
--- NOTE | 2017-07-29 | Discharge Summary 2 SIG ---
DATE OF ADMISSION: 07/21/2017 DATE OF DISCHARGE: 07/26/2017 The patient is admitted under Dr. Ro. 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 The patient also reported swelling in her legs. The patient denied taking any diuretic. She denied fever or chills. She was diagnosed to have acute respiratory failure, secondary to pulmonary edema and started on the BiPAP and transferred to [facility]. ADMITTING DIAGNOSES: 1. Acute hypoxemic respiratory failure, requiring BiPAP. 2. Acute congestive heart failure exacerbation. 3. Purulent bronchitis. 4. Morbid obesity. HOSPITAL COURSE: The patient was admitted to [facility]. The patient was started on intravenous diuresis and intake and output. Electrolytes and renal parameters were closely monitored. Renal parameters remained stable. The patient initially on the BiPAP was able to wean to oxygen via nasal cannula and then to the room air and BiPAP at night as needed. Encouraged compliance. The patient was on empiric antibiotics. Pulmonary toilet provided as needed. Unable to produce sputum since the patient has nonproductive cough. Antitussive provided as needed. Initial chest x-ray revealed pulmonary edema. Echocardiogram revealed preserved ejection fraction of 60% to 65%. ProBNP and chest x-ray was followed up. ProBNP trending down. Chest x-ray with improvement shows just mild congestive heart failure. Venous duplex of bilateral lower extremity was negative for acute DVT. Renal ultrasound was negative. Blood pressure was managed with JUAN inhibitor and was stable. DVT prophylaxis provided. Magnesium was replaced. The patient was counseled on smoking cessation. Declined nicotine patch, not ready to quit. Statin and aspirin were continued. The patient was stable for discharge. DISCHARGE DIAGNOSES: 1. Acute hypoxemic respiratory failure, requiring BiPAP. 2. Acute on chronic diastolic congestive heart failure. 3. Purulent bronchitis. 4. Morbid obesity. 5. Hypertension. 6. Nicotine dependency. 7. Anemia. Of note, hemoglobin and hematocrit were closely monitored. No trend down. Follow up with the primary medical doctor to check hemoglobin and hematocrit and possibly stool OB. DISCHARGE MEDICATIONS: See medication reconciliation list. DISCHARGE INSTRUCTIONS: The patient is discharged home. Follow up with the primary medical doctor next week. Prescription provided for diuretic. Win Ro M.D. I have been assigned to dictate discharge summary on this account and I was not involved in the patient's management. Arminda Arnold N.P. (vanchtein) DR: RONNIE JOB#: [id number] CC:
== END 2017-07-26 13:25 | disposition home or self-care (01) | DRG 291 ==
LOC: EDBD 15:54 → EMR 16:16 → 2W 16:28 → EDBEDREQ 22:51 → 2E 07-26 06:43
PROC: 5A09357 Assistance with Respiratory Ventilation, Less than 24 Consecutive Hours, Continuous Positive Airway Pressure (ICD-10-PCS; principal; 2017-07-21)
DX: I50.33 Acute on chronic diastolic (congestive) heart failure (principal); J96.01 Acute respiratory failure with hypoxia; Z68.43 Body mass index [BMI] 50.0-59.9, adult; E11.9 Type 2 diabetes mellitus without complications; D64.9 Anemia, unspecified; I10 Essential (primary) hypertension; F17.200 Nicotine dependence, unspecified, uncomplicated; J41.1 Mucopurulent chronic bronchitis; E66.01 Morbid (severe) obesity due to excess calories; Z88.8 Allergy status to other drugs, medicaments and biological substances; J45.909 Unspecified asthma, uncomplicated
CPT/HCPCS: 36415; 71010; 76775; 80048; 80053; 80069; 81001; 83735; 83880; 84443; 84484; 85025; 93005; 93306; 93970; 94640; 94660; 94760; 99285; J7620; J8499

== ENCOUNTER 2017-10-20 19:07 | Inpatient (IN) | payer MEDICARE, OTHER ==
[~2017-10-20] VITALS: Ht 157.5 cm; Wt 133.8 kg
[~2017-10-20 19:07] MED LIST changes: +FUROSEMIDE40 MG ORAL
[2017-10-20 19:30] VITALS: BP 117/53
--- NOTE | 2017-10-20 19:45 | Emergency Room Report ---
History of Present Illness General Chief Complaint: Dyspnea/Respdistress Source: Patient, Family Member Present Illness HPI 52-year-old female with pmhx of HTN, DM, COPD, CHF p/w SOB for several weeks SOB was gradual in onset, occurs both at rest and on exertion, worsened with laying flat. Associated with b/l lower extremity edema . Denies chest pain. Patient has experienced this SOB in the past and states it feels similar to previous CHF exacerbations. Patient takes 40 mg of Lasix daily and has been compliant with medications. Denies fever, chills, cough, n/v/d. Patient states that she has used BiPAP in the past Patient has last admission here in June, had bilateral lower extremity Doppler study which was negative for DVT Patient is on 24 hour home oxygen Allergies: Coded Allergies: IODINE (Verified Allergy, Severe, Anaphylaxis, 10/20/17) Lettuce (Verified Allergy, Severe, Anaphylaxis, 10/20/17) SHELLFISH DERIVED (Verified Allergy, Severe, Anaphylaxis, 10/20/17) Uncoded Allergies: SEAFOOD (Allergy, Unknown, 07/21/17) Patient History Past Medical History: see triage record Past Surgical History: none Pertinent Family History: none Last Menstrual Period: N/A Reviewed Nursing Documentation: PMH: Agreed, PSxH: Agreed Nursing Documentation-PMH Hx Cardiac Problems: Yes - CHF Hx Hypertension: Yes Hx Pacemaker: No Hx Asthma: Yes Hx COPD: Yes Hx Diabetes: Yes Hx Cancer: No Hx Gastrointestinal Problems: Yes Hx Dialysis: No Hx Neurological Problems: Yes Hx Cerebrovascular Accident: No Hx Seizures: No Hx Dizziness: Yes Hx Headaches: Yes Hx Numbness: Yes - Lt. two finger Review of Systems All Other Systems: negative except mentioned in HPI Physical Exam Vital Signs Date Time Temp Pulse Resp B/P (MAP) Pulse Ox O2 Delivery O2 Flow Rate FiO2 10/20/17 19:20 98.4 80 22 127/68 87 Room Air Sp02 EP Interpretation: reviewed, normal General Appearance: alert, GCS 15, moderate distress, other - Respiratory distress speaking 3-4 word sentences Head: normocephalic, atraumatic Eyes: bilateral eye normal inspection, bilateral eye PERRL, bilateral eye EOMI ENT: normal ENT inspection, normal pharynx, normal voice, moist mucus membranes Neck: normal inspection, full range of motion, supple Respiratory: other - bibasilar rales, chest symmetrical Cardiovascular #1: normal inspection, regular rate, rhythm, normal capillary refill Cardiovascular #2: 2+ radial (R), 2+ radial (L) Gastrointestinal: normal inspection, non tender, soft, non-distended, no guarding Musculoskeletal: other - b/l LE edema Neurologic: normal inspection, alert, oriented x3, responsive, motor strength/ tone normal, sensory intact, normal gait, speech normal Psychiatric: normal inspection, judgement/insight normal, memory normal Skin: normal inspection, normal color, no rash, warm/dry, well hydrated, normal turgor Procedures Critical Care Time Critical Care Time 40 minutes of CC time 52-year-old female with CHF exacerbation VS: Tachypnea hypoxic PLAN: IV access, labs, troponin, Lasix, BiPAP Anticipate admission to [facility] vs. [facility] CC time also includes review of labs, review of EMR, discussion with family and paperwork from SNF, d/w hospitalist CC could include dosing of pressors, additional Abx CC time does not include procedures Medical Decision Making Diagnostic Impression: Primary Impression: CHF exacerbation Additional Impression: Respiratory distress ER Course 52-year-old female with shortness of breath DDX: CHF exacerbation, ACS, pneumonia, asthma/copd Plan: IV access, awake overnight monitor, O2 nasal cannula obtain basic labs including blood gas, troponin, BNP lasix, Will consider BIPAP for persistent or worsening respiratory status Anticipate admission Nitroglycerin will not be given at this time as blood pressure low ER course: BIPAP required Lasix was given. Patient has remained on the monitor. Continues to be tachypneic. Patient's condition remains serious. ABG with CO2 noted to be 75, however patient is awake and alert not drowsy. repeat abg drawn: Disposition: Patient to be admitted to [facility] Patient requires inpatient admission for close monitoring of respiratory status/ continuation of BIPAP, further workup including serial troponin and EKGs, possible additional diuresis and monitoring of electrolytes. D/w hospitalist Dr Ro who has accepted patient for admission Please note that this Emergency Department Report was dictated using [employer] performer technology software, occasionally this can lead to erroneous entry secondary to interpretation by the dictation equipment. EKG Diagnostic Results EP Interpretation: Yes Rate: normal Rhythm: NSR ST Segments: Premature atrial complexes, T-wave inversion 1 in aVL ASA given to patient: No Rhythm Strip EP Interpretation: Yes Rate: 70 Rhythm: NSR, no PVCs, no ectopy Chest X-ray CXR: Ordered: Yes 1 view Indication: Chest pain EP interpretation: Yes Interpretation: cardiomegaly, pulm vasc congestion Impression: chf/pulm vasc congestion Electronically signed by Jose Soto MD Laboratory Tests Test 10/20/17 19:45 10/20/17 19:53 10/20/17 20:20 White Blood Count 7.2 K/UL (4.8-10.8) Red Blood Count 5.01 M/UL (4.20-5.40) Hemoglobin 10.9 G/DL (12.0-16.0) L Hematocrit 40.1 % (37.0-47.0) Mean Corpuscular Volume 80 FL (80-99) Mean Corpuscular Hemoglobin 21.7 PG (27.0-31.0) L Mean Corpuscular Hemoglobin Concent 27.1 G/DL (32.0-36.0) L Red Cell Distribution Width 20.7 % (11.6-14.8) H Platelet Count 254 K/UL (150-450) Mean Platelet Volume 6.2 FL (6.5-10.1) L Neutrophils (%) (Auto) 62.7 % (45.0-75.0) Lymphocytes (%) (Auto) 26.3 % (20.0-45.0) Monocytes (%) (Auto) 6.8 % (1.0-10.0) Eosinophils (%) (Auto) 2.7 % (0.0-3.0) Basophils (%) (Auto) 1.5 % (0.0-2.0) Sodium Level 144 MMOL/L (136-145) Potassium Level 3.3 MMOL/L (3.5-5.1) L Chloride Level 99 MMOL/L (98-107) Carbon Dioxide Level 44 MMOL/L (21-32) *H Anion Gap 1 mmol/L (5-15) L Blood Urea Nitrogen 9 mg/dL (7-18) Creatinine 0.7 MG/DL (0.55-1.30) Estimate Glomerular Filtration Rate > 60 mL/min (>60) Glucose Level 77 MG/DL (74-106) Calcium Level 9.0 MG/DL (8.5-10.1) Total Bilirubin 0.5 MG/DL (0.2-1.0) Aspartate Amino Transferase (AST) 16 U/L (15-37) Alanine Aminotransferase (ALT) 12 U/L (12-78) Alkaline Phosphatase 62 U/L (46-116) Total Creatine Kinase 68 U/L (26-308) Creatine Kinase MB 1.4 NG/ML (0.0-3.6) Creatine Kinase MB Relative Index 2.0 Troponin I 0.000 ng/mL (0.000-0.056) Pro-B-Type Natriuretic Peptide 320 pg/mL (0-125) H Total Protein 7.1 G/DL (6.4-8.2) Albumin 3.5 G/DL (3.4-5.0) Globulin 3.6 g/dL Albumin/Globulin Ratio 1.0 (1.0-2.7) Arterial Blood pH 7.413 (7.350-7.450) Arterial Blood Partial Pressure CO2 75.8 mmHg (35.0-45.0) *H Arterial Blood Partial Pressure O2 60.9 mmHg (75.0-100.0) L Arterial Blood HCO3 47.3 mmol/L (22.0-26.0) H Arterial Blood Oxygen Saturation 89.7 % (92.0-98.0) L Arterial Blood Base Excess 19.1 Ike Test Positive Urine Color Pending Urine Appearance Pending Urine pH Pending Urine Specific [place] Pending Urine Protein Pending Urine Glucose (UA) Pending Urine Ketones Pending Urine Occult Blood Pending Urine Nitrite Pending Urine Bilirubin Pending Urine Urobilinogen Pending Urine Leukocyte Esterase Pending Last Vital Signs Date Time Temp Pulse Resp B/P (MAP) Pulse Ox O2 Delivery O2 Flow Rate FiO2 10/20/17 19:20 98.4 80 22 127/68 87 Room Air Disposition: ADMITTED INPATIENT Condition: Critical Jose Soto M.D. Oct 20, 2017 19:45
[2017-10-20 20:02] LABS: ABG BASE EXCESS 19.1; ABG PCO2 75.8 mmHg (35.0-45.0)
[2017-10-20 20:03] LABS: ABG ALLEN TEST POSITIVE
[2017-10-20 20:04] LABS: BASOPHILS % (AUTO) 1.5 % (0.0-2.0); EOSINOPHILS % (AUTO) 2.7 % (0.0-3.0); LYMPHOCYTES % (AUTO) 26.3 % (20.0-45.0); MEAN CORPUSCULAR HEMOGLOBIN 21.7 PG (27.0-31.0); MEAN CORPUSCULAR HGB CONC 27.1 G/DL (32.0-36.0); MEAN CORPUSCULAR VOLUME 80 FL (80-99); MEAN PLATELET VOLUME 6.2 FL (6.5-10.1); MONOCYTES % (AUTO) 6.8 % (1.0-10.0); NEUTROPHILS % (AUTO) 62.7 % (45.0-75.0); PLATELET COUNT 254 K/UL (150-450); RED BLOOD COUNT 5.01 M/UL (4.20-5.40); RED CELL DISTRIBUTION WIDTH 20.7 % (11.6-14.8); WHITE BLOOD COUNT 7.2 K/UL (4.8-10.8)
[2017-10-20 20:14] LABS: ANION GAP 1 mmol/L (5-15); CHLORIDE 99 MMOL/L (98-107); CREATININE 0.7 MG/DL (0.55-1.30); GLOMERULAR FILTRATION RATE > 60 mL/min (>60); POTASSIUM 3.3 MMOL/L (3.5-5.1); SODIUM 144 MMOL/L (136-145)
[2017-10-20 20:23] LABS: CARBON DIOXIDE 44 MMOL/L (21-32)
[2017-10-20 20:29] LABS: ALANINE AMINOTRANSFERASE 12 U/L (12-78); ASPARTATE AMINO TRANSFERASE 16 U/L (15-37); CKMB 1.4 NG/ML (0.0-3.6); TOTAL PROTEIN 7.1 G/DL (6.4-8.2)
[2017-10-20 20:50] LABS: APPEARANCE,URINE CLEAR; KETONES,URINE NEGATIVE (NEGATIVE); LEUKOCYTE ESTERASE ,URINE 1+ (NEGATIVE); NITRITE,URINE NEGATIVE (NEGATIVE); PH,URINE 8 (4.5-8.0); PROTEIN,URINE NEGATIVE (NEGATIVE); UROBILINOGEN,URINE NORMAL MG/DL (0.0-1.0)
[2017-10-20 20:57] LABS: BACTERIA,URINE FEW /HPF; RBC,URINE 0-2 /HPF (0 - 2); SQUAMOUS EPITHELIAL CELL,UR FEW /LPF (NONE/OCC)
[2017-10-20 21:01] LABS: ABG PCO2 85.4 mmHg (35.0-45.0)
[2017-10-20 21:02] LABS: ABG ALLEN TEST POSITIVE; ABG BASE EXCESS 18.6
[2017-10-20] MEDS ORDERED: LORazepam Inj 2mg/ml 1ml IV ONE (21:15)
[2017-10-20] MEDS ORDERED: Miralax 17gm pkt ORAL PRN (21:45)
[2017-10-20] MEDS ORDERED: Albuterol/Ipratropium 3ml neb HHN PRN (21:45)
[2017-10-20 22:00] VITALS: BP 120/65
[2017-10-20] MEDS ORDERED: Heparin 5000 units/ml inj SUBQ SCH (22:00)
[2017-10-20 22:27] VITALS: BP 114/91
[2017-10-21] VITALS (24 sets, daily range): BP systolic 85–199; BP diastolic 46–132
[2017-10-21 01:12] LABS: ABG ALLEN TEST POSITIVE; ABG BASE EXCESS 12.7; ABG PCO2 93.9 mmHg (35.0-45.0)
[2017-10-21 01:52] LABS: ABG BASE EXCESS 20.4; ABG PCO2 129.7 mmHg (35.0-45.0)
[2017-10-21 01:53] LABS: ABG ALLEN TEST POSITIVE
[2017-10-21] MEDS ORDERED: Albuterol/Ipratropium 3ml neb HHN PRN (02:11)
[2017-10-21 03:16] LABS: ABG ALLEN TEST POSITIVE; ABG BASE EXCESS 17.3; ABG PCO2 75.7 mmHg (35.0-45.0)
[2017-10-21 04:34] LABS: BASOPHILS % (AUTO) 0.8 % (0.0-2.0); EOSINOPHILS % (AUTO) 2.7 % (0.0-3.0); LYMPHOCYTES % (AUTO) 24.1 % (20.0-45.0); MEAN CORPUSCULAR HGB CONC 30.8 G/DL (32.0-36.0); MEAN CORPUSCULAR VOLUME 78 FL (80-99); MEAN PLATELET VOLUME 7.5 FL (6.5-10.1); MONOCYTES % (AUTO) 3.9 % (1.0-10.0); NEUTROPHILS % (AUTO) 68.5 % (45.0-75.0); PLATELET COUNT 249 K/UL (150-450); RED BLOOD COUNT 4.54 M/UL (4.20-5.40); WHITE BLOOD COUNT 6.7 K/UL (4.8-10.8)
[2017-10-21 05:11] LABS: ANION GAP 4 mmol/L (5-15); CALCIUM 9.1 MG/DL (8.5-10.1); CHLORIDE 97 MMOL/L (98-107); CREATININE 0.8 MG/DL (0.55-1.30); GLOMERULAR FILTRATION RATE > 60 mL/min (>60); PHOSPHORUS 4.9 MG/DL (2.5-4.9); POTASSIUM 2.8 MMOL/L (3.5-5.1); SODIUM 142 MMOL/L (136-145)
[2017-10-21 05:21] LABS: CARBON DIOXIDE 40 MMOL/L (21-32)
--- NOTE | 2017-10-21 07:31 | Emergency Room Report ---
History of Present Illness General Chief Complaint: Dyspnea/Respdistress Source: Medical Record Present Illness Allergies: Coded Allergies: IODINE (Verified Allergy, Severe, Anaphylaxis, 10/20/17) Lettuce (Verified Allergy, Severe, Anaphylaxis, 10/20/17) SHELLFISH DERIVED (Verified Allergy, Severe, Anaphylaxis, 10/20/17) Uncoded Allergies: SEAFOOD (Allergy, Unknown, 07/21/17) Patient History Last Menstrual Period: N/A Now: No Nursing Documentation-[facility] Past Medical History Deferred: Patient Unconscious Hx Cardiac Problems: Yes Hx Hypertension: Yes Hx Pacemaker: No Hx Asthma: Yes Hx COPD: No Hx Diabetes: No Hx Cancer: No Hx Gastrointestinal Problems: No Hx Dialysis: No Hx Neurological Problems: No Hx Cerebrovascular Accident: Yes Hx Transient Ischemic Attacks: No Hx Dementia: No Hx Alzheimer's Disease: No Hx Parkinson's Disease: No Hx Meningitis: No Hx Encephalitis: No Hx Seizures: No Hx Epilepsy: No Hx Multiple Sclerosis: No Hx Cerebral Palsy: No Hx Amyotrophic Lat Sclerosis: No Hx Guillian-Harrison Syndrome: No Hx Paralysis: No Hx Peripheral Neuropathy: No Hx Spinal Cord Injury: Yes Hx Head Trauma: No Hx Traumatic Brain Injury: No Hx Memory Loss: No Hx Concentration Difficulty: No Hx Speech Problem: No Hx Tremors: No Hx Vertigo: No Hx Dizziness: No Hx Syncope: No Hx Headaches: No Hx Aphasia: No Hx Dysphasia: No Hx Numbness: No Hx Weakness: No Hx Fatigue: No Hx Neurologic Surgery: No Hx Brain Shunt: No Physical Exam Vital Signs Date Time Temp Pulse Resp B/P (MAP) Pulse Ox O2 Delivery O2 Flow Rate FiO2 10/20/17 19:20 98.4 80 22 127/68 87 Room Air 10/20/17 19:30 3.0 93 Procedures Critical Care Time Critical Care Time i. I feel this is a highly complex case requiring extensive working including EKG/Rhythm strip, Xray/CT/US, Blood/urine lab work, repeat exams while in ED, and administration of strong opiates/narcotics for pain control, admission to hospital or close patient follow up. Total time: 30 min bedside evaluation and treatment excludes procedures (EKG). Reason for critical care: unresponsive. hypercapneic Possible complications: hypotension, hypertension, SC, shock, arrhythmias, metabolic acidosis, end organ damage, respiratory failure. Interventions: ABG, intubation Course: Patient admitted for COPD exacerbation on BiPAP. His you call stating that patient is more unarousable. ABG shows PCO2 of 129. I intubated the patient. Repeat chest x-ray shows ET tube in place Consultations: nursing staff, EMS, family Performed by: Dr Pena Tolerated well condition = critical j. because of unstable vital signs this patient had a condition that could potentially threaten life or limb. I feel this is a critical patient who required my full attention while patient was considered critical. Total Critical Care Time excluding procedures was greater than 35 minutes Intubation Intubation : Consent: Emergent Intubation Method: orotracheal Tube Size (cm): 7.5 Medications: Etomidate, Rocuronium Breath Sounds after Intubation: equal Intubation Complications: no complications Post Intubation Xray: Yes Attempts: One Patient Tolerated: Well Complications: None Medical Decision Making Diagnostic Impression: Primary Impression: CHF exacerbation Additional Impression: Respiratory distress ER Course I was called to ICU to evaluate this patient. Patient admitted tonight for COPD exacerbation. On BiPAP. Patient became more unresponsive. ABG shows PCO2 of 129. I intubated the patient without difficulty. Chest x-ray shows ET tube in place Last Vital Signs Date Time Temp Pulse Resp B/P (MAP) Pulse Ox O2 Delivery O2 Flow Rate FiO2 10/21/17 07:00 91 16 148/72 98 Mechanical Ventilator 100 10/21/17 04:00 98.5 10/20/17 22:00 3.0 Status: improved Disposition: ADMITTED INPATIENT Condition: Critical Referrals: NOT CHOSEN DESTINEY/,REFERRING (PCP) SUE PENA M.D. Oct 21, 2017 07:31
[2017-10-21] MEDS: Heparin 5000 units/ml inj SUBQ SCH ×2 (08:54→21:12)
[2017-10-21] MEDS: Sertraline 100mg tab ORAL SCH (08:54)
[2017-10-21] MEDS ORDERED: Sertraline 100mg tab ORAL SCH (09:00)
[2017-10-21 09:05] LABS: ABG ALLEN TEST POSITIVE; ABG BASE EXCESS 20.2; ABG PCO2 49.9 mmHg (35.0-45.0)
--- NOTE | 2017-10-21 09:38 | Diagnostic Imaging Report ---
Indication: S/P INTUB Technique: XRAY CHEST 1 V Comparison:Current examination obtained at 07 43 compared with one obtained earlier 10/21/2017 at 02 14 Findings: Compared to previous examination the endotracheal tube remains in place in adequate position. A nasogastric tube is now in the stomach. The heart remains enlarged. Pulmonary vascular congestion remains. Impression: Endotracheal tube in adequate position.. Placement of nasogastric tube in the stomach. Cardiomegaly with congestive heart failure.
--- NOTE | 2017-10-21 09:46 | History and Physical ---
History of Present Illness General Date patient seen: Oct 21, 2017 Reason for Hospitalization: Dyspnea/Respdistress Present Illness HPI 52-year-old female with pmhx of HTN, DM, COPD, CHF, morbid obesity presented to ER with CC of SOB for several weeks with gradual in onset, occurs both at rest and on exertion, worsened with laying flat. Associated with b/l lower extremity edema . Denies chest pain. She was in respiratory failure and was started on BIPAP initially and admitted to [facility]. During the night her respiratory status worsened and she got intubated and transferred to ICU. Currently, pt is sedated and looks comfortable. Allergies: Coded Allergies: IODINE (Verified Allergy, Severe, Anaphylaxis, 10/20/17) Lettuce (Verified Allergy, Severe, Anaphylaxis, 10/20/17) SHELLFISH DERIVED (Verified Allergy, Severe, Anaphylaxis, 10/20/17) Uncoded Allergies: SEAFOOD (Allergy, Unknown, 07/21/17) Medication History Scheduled Atorvastatin Calcium* (Lipitor*), 80 MG ORAL BEDTIME, (Reported) Docusate Sodium* (Colace*), 100 MG ORAL DAILY, (Reported) Furosemide* (Lasix*), 40 MG ORAL TWICE A DAY Lisinopril (Lisinopril*), 20 MG ORAL DAILY, (Reported) Magnesium Oxide (Magnesium), 400 MG PO DAILY, (Reported) Metoprolol Tartrate* (Metoprolol Tartrate*), 25 MG ORAL EVERY 12 HOURS, ( Reported) Ranitidine Hcl* (Zantac*), 150 MG ORAL TWICE A DAY, (Reported) Sertraline Hcl* (Zoloft*), 200 MG ORAL DAILY, (Reported) Tiotropium [place]* (Spiriva*), 2 PUFF INH DAILY, (Reported) Scheduled PRN Beclomethasone Dipropionate 40MCG Oral Inh (Qvar 40*), 2 PUFFS INH for Shortness of Breath, (Reported) Diphenhydramine Hcl (Banophen), 50 MG PO DAILY PRN for Itching, (Reported) Ibuprofen* (Motrin*), 800 MG ORAL THREE TIMES A DAY PRN for Mild Pain (Pain Scale 1-3), (Reported) Nitroglycerin (Nitroglycerin), 0.4 MG SL DAILY PRN for For Pain, (Reported) Discontinued Medications Furosemide* (Lasix*), 20 MG ORAL TWICE A DAY, (Reported) Discontinued Reason: Medication dose changed Tramadol Hcl* (Ultram*), 50 MG ORAL Q8HR PRN for For Pain, (Reported) Discontinued Reason: Pt stopped taking med [Promethazine Hcl], 5 ML PO Q6HR PRN for For Cough, (Reported) Discontinued Reason: Pt stopped taking med Patient History Healthcare decision maker N Resuscitation status Full Code Advanced Directive on File Past Medical/Surgical History Past Medical/Surgical History: (1) Morbid obesity (2) Diabetes mellitus (3) CHF (congestive heart failure) (4) Sleep apnea (5) Morbid obesity Review of Systems Constitutional: Reports: no symptoms All Other Systems: negative except mentioned in HPI Physical Exam General Appearance: WD/WN, no apparent distress Lines, tubes and drains: peripheral, central line HEENT: normocephalic, atraumatic Neck: non-tender, normal alignment Respiratory/Chest: chest wall non-tender, lungs clear, normal breath sounds Cardiovascular/Chest: normal peripheral pulses, normal rate Abdomen: normal bowel sounds, non tender Genitourinary/Rectal: normal genital exam Extremities: normal range of motion Skin Exam: normal pigmentation 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 normal Last 24 Hour Vital Signs Date Time Temp Pulse Resp B/P (MAP) Pulse Ox O2 Delivery O2 Flow Rate FiO2 10/21/17 09:15 116 24 80 10/21/17 09:00 111 23 162/79 100 Mechanical Ventilator 100 10/21/17 08:00 100 10/21/17 08:00 113 10/21/17 08:00 99.0 110 22 164/78 100 Mechanical Ventilator 100 10/21/17 07:00 91 16 148/72 98 Mechanical Ventilator 100 10/21/17 06:50 92 18 100 10/21/17 06:00 89 16 154/66 98 Mechanical Ventilator 100 10/21/17 05:14 104 18 100 10/21/17 05:00 89 16 141/67 98 Mechanical Ventilator 100 10/21/17 04:00 89 10/21/17 04:00 100 10/21/17 04:00 98.5 100 16 152/66 100 Mechanical Ventilator 100 10/21/17 03:15 91 16 100 10/21/17 03:00 90 16 85/52 98 Mechanical Ventilator 100 10/21/17 02:00 106 17 117/70 95 Mechanical Ventilator 100 10/21/17 02:00 113 10/21/17 01:50 102 16 100 10/21/17 01:45 97.9 113 26 199/96 99 Bi-pap 100 10/21/17 01:12 100 10/21/17 00:58 81 16 94 Facial 35 10/21/17 00:00 35 10/20/17 23:29 86 10/20/17 23:29 86 10/20/17 22:57 91 22 94 Bi-pap 35 10/20/17 22:43 35 10/20/17 22:43 84 22 92 Bi-pap 35 10/20/17 22:37 84 22 92 Facial 35 10/20/17 22:27 97.7 84 24 114/91 94 Bi-pap 10/20/17 22:18 75 20 120/65 95 Bi-pap 10/20/17 22:00 98.1 75 20 120/65 95 3.0 35 10/20/17 21:14 110 30 95 Facial 35 10/20/17 19:45 3.0 35 10/20/17 19:45 83 28 Bi-pap 35 10/20/17 19:44 83 28 93 Facial 35 10/20/17 19:30 80 18 Nasal Cannula 3.0 93 10/20/17 19:30 98.4 80 18 117/53 93 Room Air 10/20/17 19:20 98.4 80 22 127/68 87 Room Air Intake and Output 10/21/17 10/22/17 19:00 07:00 Output Total 650 ml Balance -650 ml Output Urine Total 650 ml Laboratory Tests Test 10/20/17 19:45 10/20/17 19:53 10/20/17 20:20 10/20/17 20:54 White Blood Count 7.2 K/UL (4.8-10.8) Red Blood Count 5.01 M/UL (4.20-5.40) Hemoglobin 10.9 G/DL (12.0-16.0) L Hematocrit 40.1 % (37.0-47.0) Mean Corpuscular Volume 80 FL (80-99) Mean Corpuscular Hemoglobin 21.7 PG (27.0-31.0) L Mean Corpuscular Hemoglobin Concent 27.1 G/DL (32.0-36.0) L Red Cell Distribution Width 20.7 % (11.6-14.8) H Platelet Count 254 K/UL (150-450) Mean Platelet Volume 6.2 FL (6.5-10.1) L Neutrophils (%) (Auto) 62.7 % (45.0-75.0) Lymphocytes (%) (Auto) 26.3 % (20.0-45.0) Monocytes (%) (Auto) 6.8 % (1.0-10.0) Eosinophils (%) (Auto) 2.7 % (0.0-3.0) Basophils (%) (Auto) 1.5 % (0.0-2.0) Sodium Level 144 MMOL/L (136-145) Potassium Level 3.3 MMOL/L (3.5-5.1) L Chloride Level 99 MMOL/L (98-107) Carbon Dioxide Level 44 MMOL/L (21-32) *H Anion Gap 1 mmol/L (5-15) L Blood Urea Nitrogen 9 mg/dL (7-18) Creatinine 0.7 MG/DL (0.55-1.30) Estimat Glomerular Filtration Rate > 60 mL/min (>60) Glucose Level 77 MG/DL (74-106) Calcium Level 9.0 MG/DL (8.5-10.1) Total Bilirubin 0.5 MG/DL (0.2-1.0) Aspartate Amino Transf (AST/SGOT) 16 U/L (15-37) Alanine Aminotransferase (ALT/SGPT) 12 U/L (12-78) Alkaline Phosphatase 62 U/L (46-116) Total Creatine Kinase 68 U/L (26-308) Creatine Kinase MB 1.4 NG/ML (0.0-3.6) Creatine Kinase MB Relative Index 2.0 Troponin I 0.000 ng/mL (0.000-0.056) Pro-B-Type Natriuretic Peptide 320 pg/mL (0-125) H Total Protein 7.1 G/DL (6.4-8.2) Albumin 3.5 G/DL (3.4-5.0) Globulin 3.6 g/dL Albumin/Globulin Ratio 1.0 (1.0-2.7) Arterial Blood pH 7.413 (7.350-7.450) 7.368 (7.350-7.450) Arterial Blood Partial Pressure CO2 75.8 mmHg (35.0-45.0) *H 85.4 mmHg (35.0-45.0) *H Arterial Blood Partial Pressure O2 60.9 mmHg (75.0-100.0) L 51.9 mmHg (75.0-100.0) L Arterial Blood HCO3 47.3 mmol/L (22.0-26.0) H 48.0 mmol/L (22.0-26.0) H Arterial Blood Oxygen Saturation 89.7 % (92.0-98.0) L 82.8 % (92.0-98.0) L Arterial Blood Base Excess 19.1 18.6 Ike Test Positive Positive Urine Color Pale yellow Urine Appearance Clear Urine pH 8 (4.5-8.0) Urine Specific [place] 1.015 (1.005-1.035) Urine Protein Negative (NEGATIVE) Urine Glucose (UA) Negative (NEGATIVE) Urine Ketones Negative (NEGATIVE) Urine Occult Blood Negative (NEGATIVE) Urine Nitrite Negative (NEGATIVE) Urine Bilirubin Negative (NEGATIVE) Urine Urobilinogen Normal MG/DL (0.0-1.0) Urine Leukocyte Esterase 1+ (NEGATIVE) H Urine RBC 0-2 /HPF (0 - 2) Urine WBC 2-4 /HPF (0 - 2) Urine Squamous Epithelial Cells Few /LPF (NONE/OCC) Urine Bacteria Few /HPF (NONE) Test 10/21/17 01:07 10/21/17 01:45 10/21/17 02:55 10/21/17 03:10 Arterial Blood pH 7.280 (7.350-7.450) 7.235 (7.350-7.450) 7.397 (7.350-7.450) Arterial Blood Partial Pressure CO2 93.9 mmHg (35.0-45.0) *H 129.7 mmHg (35.0-45.0) *H 75.7 mmHg (35.0-45.0) *H Arterial Blood Partial Pressure O2 83.4 mmHg (75.0-100.0) 106.1 mmHg (75.0-100.0) H 68.0 mmHg (75.0-100.0) L Arterial Blood HCO3 43.1 mmol/L (22.0-26.0) H 53.7 mmol/L (22.0-26.0) H 45.5 mmol/L (22.0-26.0) H Arterial Blood Oxygen Saturation 94.2 % (92.0-98.0) 96.5 % (92.0-98.0) 91.6 % (92.0-98.0) L Arterial Blood Base Excess 12.7 20.4 17.3 Ike Test Positive Positive Positive White Blood Count 6.7 K/UL (4.8-10.8) Red Blood Count 4.54 M/UL (4.20-5.40) Hemoglobin 10.9 G/DL (12.0-16.0) L Hematocrit 35.5 % (37.0-47.0) L Mean Corpuscular Volume 78 FL (80-99) L Mean Corpuscular Hemoglobin 24.0 PG (27.0-31.0) L Mean Corpuscular Hemoglobin Concent 30.8 G/DL (32.0-36.0) L Red Cell Distribution Width 21.0 % (11.6-14.8) H Platelet Count 249 K/UL (150-450) Mean Platelet Volume 7.5 FL (6.5-10.1) Neutrophils (%) (Auto) 68.5 % (45.0-75.0) Lymphocytes (%) (Auto) 24.1 % (20.0-45.0) Monocytes (%) (Auto) 3.9 % (1.0-10.0) Eosinophils (%) (Auto) 2.7 % (0.0-3.0) Basophils (%) (Auto) 0.8 % (0.0-2.0) Sodium Level 142 MMOL/L (136-145) Potassium Level 2.8 MMOL/L (3.5-5.1) L Chloride Level 97 MMOL/L (98-107) L Carbon Dioxide Level 40 MMOL/L (21-32) H Anion Gap 4 mmol/L (5-15) L Blood Urea Nitrogen 8 mg/dL (7-18) Creatinine 0.8 MG/DL (0.55-1.30) Estimat Glomerular Filtration Rate > 60 mL/min (>60) Glucose Level 110 MG/DL (74-106) H Calcium Level 9.1 MG/DL (8.5-10.1) Phosphorus Level 4.9 MG/DL (2.5-4.9) Troponin I 0.000 ng/mL (0.000-0.056) Albumin 3.3 G/DL (3.4-5.0) L Test 10/21/17 08:45 Arterial Blood pH 7.572 (7.350-7.450) Arterial Blood Partial Pressure CO2 49.9 mmHg (35.0-45.0) H Arterial Blood Partial Pressure O2 97.0 mmHg (75.0-100.0) Arterial Blood HCO3 44.8 mmol/L (22.0-26.0) H Arterial Blood Oxygen Saturation 97.9 % (92.0-98.0) Arterial Blood Base Excess 20.2 Ike Test Positive Height (Feet): 5 Height (Inches): 2.00 Weight (Pounds): 287 Medications Current Medications Medications (Trade) Dose Ordered Sig/May Route PRN Reason Start Time Stop Time Status Last Admin Dose Admin Acetaminophen (Tylenol) 650 mg Q4H PRN ORAL Fever 10/21/17 02:11 11/19/17 02:10 Albuterol/ Ipratropium (Albuterol/ Ipratropium) 3 ml Q4H PRN HHN Shortness of Breath 10/21/17 02:11 10/25/17 02:10 Atorvastatin Calcium (Lipitor) 80 mg BEDTIME ORAL 10/21/17 22:00 11/20/17 21:59 Dextrose (Dextrose 50%) STAT PRN IV Hypoglycemia 10/21/17 02:11 11/19/17 02:10 Furosemide (Lasix) 40 mg EVERY 8 HOURS IV 10/21/17 06:00 11/20/17 05:59 10/21/17 06:13 Heparin Sodium (Porcine) (Heparin 5000 units/ml) 5,000 units EVERY 12 HOURS SUBQ 10/21/17 09:00 11/19/17 21:59 10/21/17 08:54 Ondansetron HCl (Zofran) 4 mg Q6H PRN IVP Nausea & Vomiting 10/21/17 02:12 11/19/17 02:11 Polyethylene Glycol (Miralax) 17 gm DAILYPRN PRN ORAL Constipation 10/21/17 21:45 11/19/17 21:44 Sertraline HCl (Zoloft) 200 mg DAILY ORAL 10/21/17 09:00 11/20/17 08:59 10/21/17 08:54 Temazepam (Restoril) 15 mg HSPRN PRN ORAL Insomnia 10/21/17 02:12 10/27/17 02:11 Assessment/Plan Problem List: (1) Respiratory failure, acute ICD Codes: J96.00 - Acute respiratory failure, unspecified whether with hypoxia or hypercapnia SNOMED: 29459933 (2) Acute exacerbation of CHF (congestive heart failure) ICD Codes: I50.9 - Acute exacerbation of congestive heart failure SNOMED: 74365099 (3) Sleep apnea ICD Codes: G47.30 - Sleep apnea, unspecified SNOMED: 89569193 (4) Morbid obesity ICD Codes: E66.01 - Morbid (severe) obesity due to excess calories SNOMED: 049522021 (5) Diabetes mellitus ICD Codes: E11.9 - Type 2 diabetes mellitus without complications SNOMED: 00718738 Respiratory: monitor respiratory rate, adjust FIO2, CXR Cardiac: continue to monitor HR/BP Renal: F/U I&O, check electrolytes, other Gastrointestinal: hold feedings Endocrine: monitor blood sugar Hematologic: monitor H/H, transfuse if hgb<8.5 Neurologic: PRN Ativan, PRN Morphine, keep patient comfortable Affect: PRN ativan Notes Reviewed: cardio, renal Discussed with: nurses, consultants, case resource manager LAMIN NEWTON Oct 21, 2017 09:46
--- NOTE | 2017-10-21 09:51 | Diagnostic Imaging Report ---
Indication: PAIN Technique: XRAY CHEST 1 V Comparison:07/24/17 Findings: The heart is enlarged. There is pulmonary vascular redistribution. Volume loss is noted in the right upper lobe with increased density along the minor fissure on the right. No pleural fluid. Bones are unremarkable. Impression: Cardiomegaly. Congestive heart failure. Volume loss in the right upper lobe.
--- NOTE | 2017-10-21 10:13 | Diagnostic Imaging Report ---
Indication: DYSPNEA Technique: XRAY CHEST 1 V Comparison:10/20/2017 Findings: Compared previous study an endotracheal tube has been placed at approximately the level of the sternal notch. There is cardiomegaly, unchanged. The patient has taken a very poor inspiration. Pulmonary vascular redistribution is present with patchy airspace disease bilaterally. No definite pleural fluid. Impression: Cardiomegaly with congestive heart failure. Pulmonary edema. Placement of endotracheal tube with the tip at approximately the level of the sternal notch. Repeat chest with better inspiration may be helpful.
[2017-10-21] MEDS ORDERED: NovoLOG Insulin Flexpen SUBQ SCH (11:30)
[2017-10-21] MEDS ORDERED: Potassium Chloride 40 MEQ in D5W 500ml 550 ML IVPB ONE (11:30)
[2017-10-21] MEDS: NovoLOG Insulin Flexpen SUBQ SCH ×3 (12:06→23:37)
--- NOTE | 2017-10-21 15:21 | Cardiology Progress Note ---
Assessment/Plan Assessment/Plan ful note to be dicated acute respira acidosis all trop neg vent support diuretic re bdign givenin for of iv lasix drip she looks comfortable Objective Last 24 Hour Vital Signs Date Time Temp Pulse Resp B/P (MAP) Pulse Ox O2 Delivery O2 Flow Rate FiO2 10/21/17 15:00 99 21 138/46 96 Mechanical Ventilator 80 10/21/17 14:00 100 23 148/87 96 Mechanical Ventilator 80 10/21/17 13:00 102 22 144/132 97 Mechanical Ventilator 80 10/21/17 12:53 109 22 80 10/21/17 12:01 112 10/21/17 12:00 99.6 106 22 128/91 100 Mechanical Ventilator 80 10/21/17 12:00 80 10/21/17 11:00 110 23 162/94 100 Mechanical Ventilator 80 10/21/17 10:52 98 21 80 10/21/17 10:00 100 19 140/89 98 Mechanical Ventilator 80 10/21/17 09:15 116 24 80 10/21/17 09:00 111 23 162/79 100 Mechanical Ventilator 100 10/21/17 08:00 100 10/21/17 08:00 113 10/21/17 08:00 99.0 110 22 164/78 100 Mechanical Ventilator 100 10/21/17 07:00 91 16 148/72 98 Mechanical Ventilator 100 10/21/17 06:50 92 18 100 10/21/17 06:00 89 16 154/66 98 Mechanical Ventilator 100 10/21/17 05:14 104 18 100 10/21/17 05:00 89 16 141/67 98 Mechanical Ventilator 100 10/21/17 04:00 89 10/21/17 04:00 100 10/21/17 04:00 98.5 100 16 152/66 100 Mechanical Ventilator 100 10/21/17 03:15 91 16 100 10/21/17 03:00 90 16 85/52 98 Mechanical Ventilator 100 10/21/17 02:00 106 17 117/70 95 Mechanical Ventilator 100 10/21/17 02:00 113 10/21/17 01:50 102 16 100 10/21/17 01:45 97.9 113 26 199/96 99 Bi-pap 100 10/21/17 01:12 100 10/21/17 00:58 81 16 94 Facial 35 10/21/17 00:00 35 10/20/17 23:29 86 10/20/17 23:29 86 10/20/17 22:57 91 22 94 Bi-pap 35 10/20/17 22:43 35 10/20/17 22:43 84 22 92 Bi-pap 35 10/20/17 22:37 84 22 92 Facial 35 10/20/17 22:27 97.7 84 24 114/91 94 Bi-pap 10/20/17 22:18 75 20 120/65 95 Bi-pap 10/20/17 22:00 98.1 75 20 120/65 95 3.0 35 10/20/17 21:14 110 30 95 Facial 35 10/20/17 19:45 3.0 35 10/20/17 19:45 83 28 Bi-pap 35 10/20/17 19:44 83 28 93 Facial 35 10/20/17 19:30 80 18 Nasal Cannula 3.0 93 10/20/17 19:30 98.4 80 18 117/53 93 Room Air 10/20/17 19:20 98.4 80 22 127/68 87 Room Air Intake and Output 10/21/17 10/22/17 19:00 07:00 Intake Total 233.5 ml Output Total 1440 ml Balance -1206.5 ml Intake IV Total 153.5 ml Tube Feeding 80 ml Output Urine Total 1440 ml Laboratory Tests Test 10/20/17 19:45 10/20/17 19:53 10/20/17 20:20 10/20/17 20:54 White Blood Count 7.2 K/UL (4.8-10.8) Red Blood Count 5.01 M/UL (4.20-5.40) Hemoglobin 10.9 G/DL (12.0-16.0) L Hematocrit 40.1 % (37.0-47.0) Mean Corpuscular Volume 80 FL (80-99) Mean Corpuscular Hemoglobin 21.7 PG (27.0-31.0) L Mean Corpuscular Hemoglobin Concent 27.1 G/DL (32.0-36.0) L Red Cell Distribution Width 20.7 % (11.6-14.8) H Platelet Count 254 K/UL (150-450) Mean Platelet Volume 6.2 FL (6.5-10.1) L Neutrophils (%) (Auto) 62.7 % (45.0-75.0) Lymphocytes (%) (Auto) 26.3 % (20.0-45.0) Monocytes (%) (Auto) 6.8 % (1.0-10.0) Eosinophils (%) (Auto) 2.7 % (0.0-3.0) Basophils (%) (Auto) 1.5 % (0.0-2.0) Sodium Level 144 MMOL/L (136-145) Potassium Level 3.3 MMOL/L (3.5-5.1) L Chloride Level 99 MMOL/L (98-107) Carbon Dioxide Level 44 MMOL/L (21-32) *H Anion Gap 1 mmol/L (5-15) L Blood Urea Nitrogen 9 mg/dL (7-18) Creatinine 0.7 MG/DL (0.55-1.30) Estimat Glomerular Filtration Rate > 60 mL/min (>60) Glucose Level 77 MG/DL (74-106) Calcium Level 9.0 MG/DL (8.5-10.1) Total Bilirubin 0.5 MG/DL (0.2-1.0) Aspartate Amino Transf (AST/SGOT) 16 U/L (15-37) Alanine Aminotransferase (ALT/SGPT) 12 U/L (12-78) Alkaline Phosphatase 62 U/L (46-116) Total Creatine Kinase 68 U/L (26-308) Creatine Kinase MB 1.4 NG/ML (0.0-3.6) Creatine Kinase MB Relative Index 2.0 Troponin I 0.000 ng/mL (0.000-0.056) Pro-B-Type Natriuretic Peptide 320 pg/mL (0-125) H Total Protein 7.1 G/DL (6.4-8.2) Albumin 3.5 G/DL (3.4-5.0) Globulin 3.6 g/dL Albumin/Globulin Ratio 1.0 (1.0-2.7) Arterial Blood pH 7.413 (7.350-7.450) 7.368 (7.350-7.450) Arterial Blood Partial Pressure CO2 75.8 mmHg (35.0-45.0) *H 85.4 mmHg (35.0-45.0) *H Arterial Blood Partial Pressure O2 60.9 mmHg (75.0-100.0) L 51.9 mmHg (75.0-100.0) L Arterial Blood HCO3 47.3 mmol/L (22.0-26.0) H 48.0 mmol/L (22.0-26.0) H Arterial Blood Oxygen Saturation 89.7 % (92.0-98.0) L 82.8 % (92.0-98.0) L Arterial Blood Base Excess 19.1 18.6 Ike Test Positive Positive Urine Color Pale yellow Urine Appearance Clear Urine pH 8 (4.5-8.0) Urine Specific [place] 1.015 (1.005-1.035) Urine Protein Negative (NEGATIVE) Urine Glucose (UA) Negative (NEGATIVE) Urine Ketones Negative (NEGATIVE) Urine Occult Blood Negative (NEGATIVE) Urine Nitrite Negative (NEGATIVE) Urine Bilirubin Negative (NEGATIVE) Urine Urobilinogen Normal MG/DL (0.0-1.0) Urine Leukocyte Esterase 1+ (NEGATIVE) H Urine RBC 0-2 /HPF (0 - 2) Urine WBC 2-4 /HPF (0 - 2) Urine Squamous Epithelial Cells Few /LPF (NONE/OCC) Urine Bacteria Few /HPF (NONE) Test 10/21/17 01:07 10/21/17 01:45 10/21/17 02:55 10/21/17 03:10 Arterial Blood pH 7.280 (7.350-7.450) 7.235 (7.350-7.450) 7.397 (7.350-7.450) Arterial Blood Partial Pressure CO2 93.9 mmHg (35.0-45.0) *H 129.7 mmHg (35.0-45.0) *H 75.7 mmHg (35.0-45.0) *H Arterial Blood Partial Pressure O2 83.4 mmHg (75.0-100.0) 106.1 mmHg (75.0-100.0) H 68.0 mmHg (75.0-100.0) L Arterial Blood HCO3 43.1 mmol/L (22.0-26.0) H 53.7 mmol/L (22.0-26.0) H 45.5 mmol/L (22.0-26.0) H Arterial Blood Oxygen Saturation 94.2 % (92.0-98.0) 96.5 % (92.0-98.0) 91.6 % (92.0-98.0) L Arterial Blood Base Excess 12.7 20.4 17.3 Ike Test Positive Positive Positive White Blood Count 6.7 K/UL (4.8-10.8) Red Blood Count 4.54 M/UL (4.20-5.40) Hemoglobin 10.9 G/DL (12.0-16.0) L Hematocrit 35.5 % (37.0-47.0) L Mean Corpuscular Volume 78 FL (80-99) L Mean Corpuscular Hemoglobin 24.0 PG (27.0-31.0) L Mean Corpuscular Hemoglobin Concent 30.8 G/DL (32.0-36.0) L Red Cell Distribution Width 21.0 % (11.6-14.8) H Platelet Count 249 K/UL (150-450) Mean Platelet Volume 7.5 FL (6.5-10.1) Neutrophils (%) (Auto) 68.5 % (45.0-75.0) Lymphocytes (%) (Auto) 24.1 % (20.0-45.0) Monocytes (%) (Auto) 3.9 % (1.0-10.0) Eosinophils (%) (Auto) 2.7 % (0.0-3.0) Basophils (%) (Auto) 0.8 % (0.0-2.0) Sodium Level 142 MMOL/L (136-145) Potassium Level 2.8 MMOL/L (3.5-5.1) L Chloride Level 97 MMOL/L (98-107) L Carbon Dioxide Level 40 MMOL/L (21-32) H Anion Gap 4 mmol/L (5-15) L Blood Urea Nitrogen 8 mg/dL (7-18) Creatinine 0.8 MG/DL (0.55-1.30) Estimat Glomerular Filtration Rate > 60 mL/min (>60) Glucose Level 110 MG/DL (74-106) H Calcium Level 9.1 MG/DL (8.5-10.1) Phosphorus Level 4.9 MG/DL (2.5-4.9) Troponin I 0.000 ng/mL (0.000-0.056) Albumin 3.3 G/DL (3.4-5.0) L Test 10/21/17 08:45 Arterial Blood pH 7.572 (7.350-7.450) Arterial Blood Partial Pressure CO2 49.9 mmHg (35.0-45.0) H Arterial Blood Partial Pressure O2 97.0 mmHg (75.0-100.0) Arterial Blood HCO3 44.8 mmol/L (22.0-26.0) H Arterial Blood Oxygen Saturation 97.9 % (92.0-98.0) Arterial Blood Base Excess 20.2 Ike Test Positive ANDI ZACARIAS Oct 21, 2017 15:21
[2017-10-21] MEDS: Morphine Sulfate 4mg/ml Inj IVP PRN (16:13)
[2017-10-21] MEDS: LORazepam Inj 2mg/ml 1ml IV PRN (19:30)
[2017-10-21] MEDS: acetaZOLAMIDE 500mg Inj IVP SCH (21:11)
[2017-10-21] MEDS ORDERED: Miralax 17gm pkt ORAL PRN (21:45)
[2017-10-21] MEDS: Atorvastatin 80mg tab ORAL SCH (21:46)
[2017-10-21] MEDS ORDERED: Potassium Chloride 40 MEQ/NS 550ML IVPB ONE ×2 (22:00)
[2017-10-21] MEDS ORDERED: Atorvastatin 80mg tab ORAL SCH (22:00)
[2017-10-22] VITALS (22 sets, daily range): BP systolic 80–168; BP diastolic 40–95
[2017-10-22 04:45] LABS: BASOPHILS % (AUTO) 0.5 % (0.0-2.0); EOSINOPHILS % (AUTO) 0.8 % (0.0-3.0); LYMPHOCYTES % (AUTO) 19.6 % (20.0-45.0); MEAN CORPUSCULAR HEMOGLOBIN 23.5 PG (27.0-31.0); MEAN CORPUSCULAR HGB CONC 30.7 G/DL (32.0-36.0); MEAN CORPUSCULAR VOLUME 77 FL (80-99); MEAN PLATELET VOLUME 7.1 FL (6.5-10.1); NEUTROPHILS % (AUTO) 72.1 % (45.0-75.0); PLATELET COUNT 250 K/UL (150-450); RED BLOOD COUNT 4.82 M/UL (4.20-5.40); RED CELL DISTRIBUTION WIDTH 21.3 % (11.6-14.8); WHITE BLOOD COUNT 10.7 K/UL (4.8-10.8)
[2017-10-22 05:07] LABS: ALANINE AMINOTRANSFERASE 11 U/L (12-78); ALBUMIN/GLOBULIN RATIO 0.8 (1.0-2.7); ANION GAP 1 mmol/L (5-15); ASPARTATE AMINO TRANSFERASE 12 U/L (15-37); CALCIUM 9.5 MG/DL (8.5-10.1); CHLORIDE 97 MMOL/L (98-107); CREATININE 1.3 MG/DL (0.55-1.30); GLOMERULAR FILTRATION RATE 51.9 mL/min (>60); MAGNESIUM 1.8 MG/DL (1.8-2.4); PHOSPHORUS 2.9 MG/DL (2.5-4.9); POTASSIUM 3.1 MMOL/L (3.5-5.1); SODIUM 139 MMOL/L (136-145); TOTAL PROTEIN 7.2 G/DL (6.4-8.2)
[2017-10-22 05:13] LABS: CARBON DIOXIDE 40 MMOL/L (21-32)
[2017-10-22 05:18] LABS: BILIRUBIN,DIRECT 0.3 MG/DL (0.0-0.3)
[2017-10-22 05:35] LABS: ABG PCO2 53.7 mmHg (35.0-45.0)
[2017-10-22 05:36] LABS: ABG BASE EXCESS 16.4
[2017-10-22 05:37] LABS: ABG ALLEN TEST POSITIVE
[2017-10-22] MEDS: NovoLOG Insulin Flexpen SUBQ SCH ×4 (05:50→23:44)
[2017-10-22] MEDS: Heparin 5000 units/ml inj SUBQ SCH ×2 (09:00→20:40)
[2017-10-22] MEDS: Pantoprazole Inj IV SCH (09:04)
[2017-10-22] MEDS: Sertraline 100mg tab ORAL SCH (09:05)
[2017-10-22] MEDS: acetaZOLAMIDE 500mg Inj IVP SCH (09:05)
--- NOTE | 2017-10-22 10:13 | Pulmonolgy Critical Care Note ---
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, 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, 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, 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 - Objective Last 24 Hour Vital Signs Date Time Temp Pulse Resp B/P (MAP) Pulse Ox O2 Delivery O2 Flow Rate FiO2 10/22/17 08:46 119 23 50 10/22/17 08:00 99.0 117 22 120/50 91 Mechanical Ventilator 50 10/22/17 07:00 114 20 114/71 90 Mechanical Ventilator 50 10/22/17 06:33 118 23 50 10/22/17 06:00 105 20 115/68 88 Mechanical Ventilator 50 10/22/17 05:01 116 18 50 10/22/17 05:00 113 21 114/70 91 Mechanical Ventilator 50 10/22/17 04:00 118 10/22/17 04:00 50 10/22/17 04:00 99.3 111 21 126/50 93 Mechanical Ventilator 50 10/22/17 03:04 112 20 50 10/22/17 03:00 110 21 127/68 93 Mechanical Ventilator 50 10/22/17 02:00 115 21 119/84 93 Mechanical Ventilator 50 10/22/17 01:40 99.5 10/22/17 01:20 105 21 50 10/22/17 01:00 113 21 113/65 95 Mechanical Ventilator 50 10/22/17 00:00 99.9 106 21 111/58 94 Mechanical Ventilator 50 10/22/17 00:00 118 10/22/17 00:00 50 10/21/17 23:00 119 21 106/59 95 Mechanical Ventilator 50 10/21/17 22:58 121 20 50 10/21/17 22:00 118 21 118/71 96 Mechanical Ventilator 50 10/21/17 21:10 119 19 50 10/21/17 21:00 116 21 114/70 95 Mechanical Ventilator 50 10/21/17 20:00 113 10/21/17 20:00 99.0 115 21 105/80 96 Mechanical Ventilator 50 10/21/17 19:00 114 19 50 10/21/17 19:00 118 21 129/70 96 Mechanical Ventilator 50 10/21/17 18:00 115 20 138/77 95 Mechanical Ventilator 50 10/21/17 17:00 109 19 146/63 94 Mechanical Ventilator 50 10/21/17 16:51 50 10/21/17 16:51 98.9 10/21/17 16:48 109 19 50 10/21/17 16:00 98.9 102 23 144/80 100 Mechanical Ventilator 60 10/21/17 16:00 106 10/21/17 16:00 60 10/21/17 15:25 108 20 60 10/21/17 15:00 99 21 138/46 96 Mechanical Ventilator 80 10/21/17 14:00 100 23 148/87 96 Mechanical Ventilator 80 10/21/17 13:00 102 22 144/132 97 Mechanical Ventilator 80 10/21/17 12:53 109 22 80 10/21/17 12:01 112 10/21/17 12:00 99.6 106 22 128/91 100 Mechanical Ventilator 80 10/21/17 12:00 80 10/21/17 11:00 110 23 162/94 100 Mechanical Ventilator 80 10/21/17 10:52 98 21 80 Status: awake Condition: critical HEENT: atraumatic, normocephalic Neck: full ROM Lungs: chest wall tender Heart: HR/BP unstable Abdomen: soft, non-tender, feeding tube Extremities: no C/C/E, edema Micro: Microbiology Date/Time Source Procedure Growth Status 10/20/17 19:45 Arm Right Blood Culture - Preliminary NO GROWTH AFTER 24 HOURS Resulted 10/20/17 19:30 Arm Left Blood Culture - Preliminary NO GROWTH AFTER 24 HOURS Resulted Accucheck: 133 Critical Care - Subjective ROS Limited/Unobtainable: No ICU Day: 3 Intubation Day: 3 Interval Events: still sedated, diuresed well. FI02: 50 Vent Support Breath Rate: 16 Vent Support Mode: AC Vent Tidal Volume: 500 Sputum Amount: Moderate PEEP: 7.0 PIP: 30 Tube Feeding Amount: 20 I&O: Intake and Output 10/22/17 10/23/17 19:00 07:00 Intake Total 40 ml Output Total 275 ml Balance -235 ml Tube Feeding 40 ml Output Urine Total 275 ml CXR: improving ET tube in good position ET-Tube: 7.5 ET Position: 22 Labs: Laboratory Tests Test 10/21/17 21:55 10/22/17 04:10 10/22/17 05:28 Troponin I < 0.017 ng/mL (0.000-0.056) 0.000 ng/mL (0.000-0.056) White Blood Count 10.7 K/UL (4.8-10.8) # Red Blood Count 4.82 M/UL (4.20-5.40) Hemoglobin 11.3 G/DL (12.0-16.0) L Hematocrit 36.9 % (37.0-47.0) L Mean Corpuscular Volume 77 FL (80-99) L Mean Corpuscular Hemoglobin 23.5 PG (27.0-31.0) L Mean Corpuscular Hemoglobin Concent 30.7 G/DL (32.0-36.0) L Red Cell Distribution Width 21.3 % (11.6-14.8) H Platelet Count 250 K/UL (150-450) Mean Platelet Volume 7.1 FL (6.5-10.1) Neutrophils (%) (Auto) 72.1 % (45.0-75.0) Lymphocytes (%) (Auto) 19.6 % (20.0-45.0) L Monocytes (%) (Auto) 7.0 % (1.0-10.0) Eosinophils (%) (Auto) 0.8 % (0.0-3.0) Basophils (%) (Auto) 0.5 % (0.0-2.0) Sodium Level 139 MMOL/L (136-145) Potassium Level 3.1 MMOL/L (3.5-5.1) L Chloride Level 97 MMOL/L (98-107) L Carbon Dioxide Level 40 MMOL/L (21-32) H Anion Gap 1 mmol/L (5-15) L Blood Urea Nitrogen 15 mg/dL (7-18) Creatinine 1.3 MG/DL (0.55-1.30) # Estimat Glomerular Filtration Rate 51.9 mL/min (>60) Glucose Level 117 MG/DL (74-106) H Calcium Level 9.5 MG/DL (8.5-10.1) Phosphorus Level 2.9 MG/DL (2.5-4.9) Magnesium Level 1.8 MG/DL (1.8-2.4) Total Bilirubin 1.2 MG/DL (0.2-1.0) H Direct Bilirubin 0.3 MG/DL (0.0-0.3) Aspartate Amino Transf (AST/SGOT) 12 U/L (15-37) L Alanine Aminotransferase (ALT/SGPT) 11 U/L (12-78) L Alkaline Phosphatase 61 U/L (46-116) Total Protein 7.2 G/DL (6.4-8.2) Albumin 3.2 G/DL (3.4-5.0) L Globulin 4.0 g/dL Albumin/Globulin Ratio 0.8 (1.0-2.7) L Arterial Blood pH 7.509 (7.350-7.450) Arterial Blood Partial Pressure CO2 53.7 mmHg (35.0-45.0) H Arterial Blood Partial Pressure O2 49.8 mmHg (75.0-100.0) Arterial Blood HCO3 41.8 mmol/L (22.0-26.0) H Arterial Blood Oxygen Saturation 84.6 % (92.0-98.0) L Arterial Blood Base Excess 16.4 Ike Test Positive LAMIN NEWTON Oct 22, 2017 10:13
--- NOTE | 2017-10-22 10:28 | Consultation ---
History of Present Illness General Date patient seen: Oct 22, 2017 Time patient seen: 10:28 Chief Complaint: Dyspnea/Respdistress Present Illness HPI 52 y/o F with hx of HTN, DM, COPD, HLD, CHF, TOO, morbid obesity presents to ED on 10/21 with several weeks of gradual onset of SOB, both at rest and on exertion and worsenign orthopnea associated with b/l LE edema. In ED required Bipap and initially admitted to [facility] but during the night developed worsening resp status and required intubation and transferred to ICU, Denied CP, f/c upon admission Of note, patient admitted on June 2017 and in April 2017 for facial cellulitis s/p 10 days of Clindamycin Afebrile, no leukocytosis. Off abx. CXR with CHF,. She is now bacteremia 4/4 GPC in clusters. Echo limited, did not showed vegetations. Allergies: Coded Allergies: IODINE (Verified Allergy, Severe, Anaphylaxis, 10/20/17) Lettuce (Verified Allergy, Severe, Anaphylaxis, 10/20/17) SHELLFISH DERIVED (Verified Allergy, Severe, Anaphylaxis, 10/20/17) Uncoded Allergies: SEAFOOD (Allergy, Unknown, 07/21/17) Medication History Scheduled Atorvastatin Calcium* (Lipitor*), 80 MG ORAL BEDTIME, (Reported) Docusate Sodium* (Colace*), 100 MG ORAL DAILY, (Reported) Furosemide* (Lasix*), 40 MG ORAL TWICE A DAY Lisinopril (Lisinopril*), 20 MG ORAL DAILY, (Reported) Magnesium Oxide (Magnesium), 400 MG PO DAILY, (Reported) Metoprolol Tartrate* (Metoprolol Tartrate*), 25 MG ORAL EVERY 12 HOURS, ( Reported) Ranitidine Hcl* (Zantac*), 150 MG ORAL TWICE A DAY, (Reported) Sertraline Hcl* (Zoloft*), 200 MG ORAL DAILY, (Reported) Tiotropium [place]* (Spiriva*), 2 PUFF INH DAILY, (Reported) Scheduled PRN Beclomethasone Dipropionate 40MCG Oral Inh (Qvar 40*), 2 PUFFS INH for Shortness of Breath, (Reported) Diphenhydramine Hcl (Banophen), 50 MG PO DAILY PRN for Itching, (Reported) Ibuprofen* (Motrin*), 800 MG ORAL THREE TIMES A DAY PRN for Mild Pain (Pain Scale 1-3), (Reported) Nitroglycerin (Nitroglycerin), 0.4 MG SL DAILY PRN for For Pain, (Reported) Discontinued Medications Furosemide* (Lasix*), 20 MG ORAL TWICE A DAY, (Reported) Discontinued Reason: Medication dose changed Tramadol Hcl* (Ultram*), 50 MG ORAL Q8HR PRN for For Pain, (Reported) Discontinued Reason: Pt stopped taking med [Promethazine Hcl], 5 ML PO Q6HR PRN for For Cough, (Reported) Discontinued Reason: Pt stopped taking med Patient History Healthcare decision maker N Resuscitation status Full Code Advanced Directive on File Patient History Narrative PMhx as above Shx: unable to obtain Fhx non contributory Review of Systems ROS Narrative unable to obtain Physical Exam Physical Exam Narrative General Appearance: intubated, arousable Lines, tubes and drains: peripheral, central line HEENT: normocephalic, atraumatic, ETT in place Neck: non-tender, normal alignment Respiratory/Chest: chest wall non-tender, lungs clear, normal breath sounds Cardiovascular/Chest: normal peripheral pulses, normal rate Abdomen: normal bowel sounds, non tender Genitourinary/Rectal: normal genital exam Extremities: normal range of motion Skin Exam: normal pigmentation, no signs of cellulitis 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 Last 24 Hour Vital Signs Date Time Temp Pulse Resp B/P (MAP) Pulse Ox O2 Delivery O2 Flow Rate FiO2 10/22/17 08:46 119 23 50 10/22/17 08:00 99.0 117 22 120/50 91 Mechanical Ventilator 50 10/22/17 07:00 114 20 114/71 90 Mechanical Ventilator 50 10/22/17 06:33 118 23 50 10/22/17 06:00 105 20 115/68 88 Mechanical Ventilator 50 10/22/17 05:01 116 18 50 10/22/17 05:00 113 21 114/70 91 Mechanical Ventilator 50 10/22/17 04:00 118 10/22/17 04:00 50 10/22/17 04:00 99.3 111 21 126/50 93 Mechanical Ventilator 50 10/22/17 03:04 112 20 50 10/22/17 03:00 110 21 127/68 93 Mechanical Ventilator 50 10/22/17 02:00 115 21 119/84 93 Mechanical Ventilator 50 10/22/17 01:40 99.5 10/22/17 01:20 105 21 50 10/22/17 01:00 113 21 113/65 95 Mechanical Ventilator 50 10/22/17 00:00 99.9 106 21 111/58 94 Mechanical Ventilator 50 10/22/17 00:00 118 10/22/17 00:00 50 10/21/17 23:00 119 21 106/59 95 Mechanical Ventilator 50 10/21/17 22:58 121 20 50 10/21/17 22:00 118 21 118/71 96 Mechanical Ventilator 50 10/21/17 21:10 119 19 50 10/21/17 21:00 116 21 114/70 95 Mechanical Ventilator 50 10/21/17 20:00 113 10/21/17 20:00 99.0 115 21 105/80 96 Mechanical Ventilator 50 10/21/17 19:00 114 19 50 10/21/17 19:00 118 21 129/70 96 Mechanical Ventilator 50 10/21/17 18:00 115 20 138/77 95 Mechanical Ventilator 50 10/21/17 17:00 109 19 146/63 94 Mechanical Ventilator 50 10/21/17 16:51 50 10/21/17 16:51 98.9 10/21/17 16:48 109 19 50 10/21/17 16:00 98.9 102 23 144/80 100 Mechanical Ventilator 60 10/21/17 16:00 106 10/21/17 16:00 60 10/21/17 15:25 108 20 60 10/21/17 15:00 99 21 138/46 96 Mechanical Ventilator 80 10/21/17 14:00 100 23 148/87 96 Mechanical Ventilator 80 10/21/17 13:00 102 22 144/132 97 Mechanical Ventilator 80 10/21/17 12:53 109 22 80 10/21/17 12:01 112 10/21/17 12:00 99.6 106 22 128/91 100 Mechanical Ventilator 80 10/21/17 12:00 80 10/21/17 11:00 110 23 162/94 100 Mechanical Ventilator 80 10/21/17 10:52 98 21 80 Intake and Output 10/22/17 10/23/17 19:00 07:00 Intake Total 40 ml Output Total 275 ml Balance -235 ml Tube Feeding 40 ml Output Urine Total 275 ml Laboratory Tests Test 10/21/17 21:55 10/22/17 04:10 10/22/17 05:28 Troponin I < 0.017 ng/mL (0.000-0.056) 0.000 ng/mL (0.000-0.056) White Blood Count 10.7 K/UL (4.8-10.8) # Red Blood Count 4.82 M/UL (4.20-5.40) Hemoglobin 11.3 G/DL (12.0-16.0) L Hematocrit 36.9 % (37.0-47.0) L Mean Corpuscular Volume 77 FL (80-99) L Mean Corpuscular Hemoglobin 23.5 PG (27.0-31.0) L Mean Corpuscular Hemoglobin Concent 30.7 G/DL (32.0-36.0) L Red Cell Distribution Width 21.3 % (11.6-14.8) H Platelet Count 250 K/UL (150-450) Mean Platelet Volume 7.1 FL (6.5-10.1) Neutrophils (%) (Auto) 72.1 % (45.0-75.0) Lymphocytes (%) (Auto) 19.6 % (20.0-45.0) L Monocytes (%) (Auto) 7.0 % (1.0-10.0) Eosinophils (%) (Auto) 0.8 % (0.0-3.0) Basophils (%) (Auto) 0.5 % (0.0-2.0) Sodium Level 139 MMOL/L (136-145) Potassium Level 3.1 MMOL/L (3.5-5.1) L Chloride Level 97 MMOL/L (98-107) L Carbon Dioxide Level 40 MMOL/L (21-32) H Anion Gap 1 mmol/L (5-15) L Blood Urea Nitrogen 15 mg/dL (7-18) Creatinine 1.3 MG/DL (0.55-1.30) # Estimat Glomerular Filtration Rate 51.9 mL/min (>60) Glucose Level 117 MG/DL (74-106) H Calcium Level 9.5 MG/DL (8.5-10.1) Phosphorus Level 2.9 MG/DL (2.5-4.9) Magnesium Level 1.8 MG/DL (1.8-2.4) Total Bilirubin 1.2 MG/DL (0.2-1.0) H Direct Bilirubin 0.3 MG/DL (0.0-0.3) Aspartate Amino Transf (AST/SGOT) 12 U/L (15-37) L Alanine Aminotransferase (ALT/SGPT) 11 U/L (12-78) L Alkaline Phosphatase 61 U/L (46-116) Total Protein 7.2 G/DL (6.4-8.2) Albumin 3.2 G/DL (3.4-5.0) L Globulin 4.0 g/dL Albumin/Globulin Ratio 0.8 (1.0-2.7) L Arterial Blood pH 7.509 (7.350-7.450) Arterial Blood Partial Pressure CO2 53.7 mmHg (35.0-45.0) H Arterial Blood Partial Pressure O2 49.8 mmHg (75.0-100.0) Arterial Blood HCO3 41.8 mmol/L (22.0-26.0) H Arterial Blood Oxygen Saturation 84.6 % (92.0-98.0) L Arterial Blood Base Excess 16.4 Ike Test Positive Height (Feet): 5 Height (Inches): 2.00 Weight (Pounds): 290 Medications Current Medications Medications (Trade) Dose Ordered Sig/May Route PRN Reason Start Time Stop Time Status Last Admin Dose Admin Acetaminophen (Tylenol) 650 mg Q4H PRN ORAL Fever 10/21/17 02:11 11/19/17 02:10 10/22/17 09:36 Albuterol/ Ipratropium (Albuterol/ Ipratropium) 3 ml Q4H PRN HHN Shortness of Breath 10/21/17 02:11 10/25/17 02:10 Atorvastatin Calcium (Lipitor) 80 mg BEDTIME ORAL 10/21/17 22:00 11/20/17 21:59 10/21/17 21:46 Dextrose (Dextrose 50%) STAT PRN IV Hypoglycemia 10/21/17 02:11 11/19/17 02:10 Heparin Sodium (Porcine) (Heparin 5000 units/ml) 5,000 units EVERY 12 HOURS SUBQ 10/21/17 09:00 11/19/17 21:59 10/21/17 21:12 Insulin Aspart (NovoLOG) EVERY 6 HOURS SUBQ 10/21/17 12:00 11/20/17 11:29 10/22/17 05:50 Lorazepam (Ativan 2mg/ml 1ml) 2 mg Q4H PRN IV For Anxiety 10/21/17 09:45 10/28/17 09:44 10/21/17 19:30 Morphine Sulfate (Morphine Sulfate) 4 mg Q4H PRN IVP For Pain 10/21/17 09:45 10/28/17 09:44 10/21/17 16:13 Ondansetron HCl (Zofran) 4 mg Q6H PRN IVP Nausea & Vomiting 10/21/17 02:12 11/19/17 02:11 Pantoprazole (Protonix) 40 mg DAILY IV 10/22/17 09:00 11/21/17 08:59 10/22/17 09:04 Polyethylene Glycol (Miralax) 17 gm DAILYPRN PRN ORAL Constipation 10/21/17 21:45 11/19/17 21:44 Sertraline HCl (Zoloft) 200 mg DAILY ORAL 10/21/17 09:00 11/20/17 08:59 10/22/17 09:05 Temazepam (Restoril) 15 mg HSPRN PRN ORAL Insomnia 10/21/17 02:12 10/27/17 02:11 Assessment/Plan Assessment/Plan Abx: None Assesment High grade gram positive bacteremia- r/o endocarditis- query if patient went into flash pulmonary edema due to a damaged valve -Bcx 10/20 4/4 GPC clusters (ID and sensi pending) -TTE: limited views, no vegetations seen Acute hypoxic/hypercapenic resp failure 2ry to Acute CHF exacerbation s/p intubation 10/21- no evidence of PNA or other infectious process at this moment. -CXR: Cardiomegaly with congestive heart failure.Pulmonary edema. Afebrile, no leukocytosis -u/a no pyuria DAGO HTN, DM, COPD, HLD, CHF, TOO, morbid obesity hx of facial cellulitis s/p 10d Clindamcyin 04/2017 Plan: -Start IV Vancomycin and give one time dose of Ceftaroline for high grade GPC bacteremia -will need TYRONE to r/o endocarditis and significant valve abnormality -obtain 2 sets of Bcx, ESR.CRP -f/u Bcx -Monitor CBC/BMP, temperatures -Vent/ETT care -Aspiration precautions -Cards following Thank you for this consultation. Will continue to follow along with you. Discussed with RN and Christy Miller M.D. Oct 22, 2017 10:28
[2017-10-22] MEDS ORDERED: KCl 10% 40mEq/30ml liquid NG ONE (12:30)
--- NOTE | 2017-10-22 12:39 | Diagnostic Imaging Report ---
Indication: ABN LABS pain, abnormal renal function tests Technique: Grayscale and duplex images of the kidneys, retroperitoneum, and bladder were obtained. Comparison:07/21/2017 Findings: Right kidney measures 11.7 cm in length. Left kidney measures 10.5 cm in length. Both kidneys demonstrate normal echogenicity. No hydronephrosis. No focal abnormality. Normal inferior vena cava. Bladder is empty, contains a Can catheter. Impression: Negative for hydronephrosis Empty bladder with Can catheter Hyperechoic linear structure within the inferior vena cava. Etiology uncertain, as no foreign body is seen in this area on concurrent chest radiographs. However, abdominal radiography may be useful for more specific evaluation
[2017-10-22] MEDS ORDERED: CEFTAROLINE IV ONE (13:00)
[2017-10-22] MEDS ORDERED: NS IV ONE (13:00)
--- NOTE | 2017-10-22 13:15 | Diagnostic Imaging Report ---
Indication: DYSPNEA Technique: One view of the chest Comparison: 10/21/2017 Findings: Stable satisfactory positions of endotracheal and nasogastric tubes. Echocardiographic. Bilateral interstitial and alveolar congestive changes may be slightly improved Impression: Stable to slightly improved bilateral parenchymal congestion, over one day Other stable findings as described
[2017-10-22] MEDS ORDERED: Vancomycin 2gm/D5W 550ml IVPB ONE ×2 (14:00)
--- NOTE | 2017-10-22 14:07 | Cardiology Progress Note ---
Assessment/Plan Assessment/Plan respiratory failuer copd hs fo diatlic failure obesity systemic htn bacteremia gp cocci in cluster respiratory acidosis pro bnp not sig elevated is on diuretic is on vent blood cx are both positive i personally reviewed echo excellent lv systolic function chuck valve er very poorly visualized but there are no regurgitation lesions at all, diastolic parameter are normal k suplement iv diuretic iv abx for bactermia the sourse of bacteremia not yet clear wether has seeded chuck heart valves needs to be determined however there is no evidence for vlave issue to explain her repiratory issue which seem to hve developed gradually TYRONE may be helpfull to see if any vlv pathology will arrange for Subjective Cardiovascular: Denies: chest pain, lightheadedness Respiratory: Reports: cough, shortness of breath, SOB with excertion Gastrointestinal/Abdominal: Denies: abdominal pain Genitourinary: Denies: burning Objective Last 24 Hour Vital Signs Date Time Temp Pulse Resp B/P (MAP) Pulse Ox O2 Delivery O2 Flow Rate FiO2 10/22/17 12:58 119 21 50 10/22/17 12:50 98.0 115 20 94 Mechanical Ventilator 50 10/22/17 12:24 115 10/22/17 11:29 117 21 50 10/22/17 11:00 110 20 113/61 94 50 10/22/17 10:35 97.3 10/22/17 10:32 50 10/22/17 10:00 112 22 113/61 94 Mechanical Ventilator 50 10/22/17 09:00 113 21 95/40 92 Mechanical Ventilator 50 10/22/17 08:46 119 23 50 10/22/17 08:00 99.0 117 22 120/50 91 Mechanical Ventilator 50 10/22/17 08:00 50 10/22/17 08:00 116 10/22/17 07:00 114 20 114/71 90 Mechanical Ventilator 50 10/22/17 06:33 118 23 50 10/22/17 06:00 105 20 115/68 88 Mechanical Ventilator 50 10/22/17 05:01 116 18 50 10/22/17 05:00 113 21 114/70 91 Mechanical Ventilator 50 10/22/17 04:00 118 10/22/17 04:00 50 10/22/17 04:00 99.3 111 21 126/50 93 Mechanical Ventilator 50 10/22/17 03:04 112 20 50 10/22/17 03:00 110 21 127/68 93 Mechanical Ventilator 50 10/22/17 02:00 115 21 119/84 93 Mechanical Ventilator 50 10/22/17 01:20 105 21 50 10/22/17 01:00 113 21 113/65 95 Mechanical Ventilator 50 10/22/17 00:00 99.9 106 21 111/58 94 Mechanical Ventilator 50 10/22/17 00:00 118 10/22/17 00:00 50 10/21/17 23:00 119 21 106/59 95 Mechanical Ventilator 50 10/21/17 22:58 121 20 50 10/21/17 22:00 118 21 118/71 96 Mechanical Ventilator 50 10/21/17 21:10 119 19 50 10/21/17 21:00 116 21 114/70 95 Mechanical Ventilator 50 10/21/17 20:00 113 10/21/17 20:00 99.0 115 21 105/80 96 Mechanical Ventilator 50 10/21/17 19:00 114 19 50 10/21/17 19:00 118 21 129/70 96 Mechanical Ventilator 50 10/21/17 18:00 115 20 138/77 95 Mechanical Ventilator 50 10/21/17 17:00 109 19 146/63 94 Mechanical Ventilator 50 10/21/17 16:51 50 10/21/17 16:51 98.9 10/21/17 16:48 109 19 50 10/21/17 16:00 98.9 102 23 144/80 100 Mechanical Ventilator 60 10/21/17 16:00 106 10/21/17 16:00 60 10/21/17 15:25 108 20 60 10/21/17 15:00 99 21 138/46 96 Mechanical Ventilator 80 10/21/17 14:00 100 23 148/87 96 Mechanical Ventilator 80 General Appearance: no apparent distress, alert, on vent Neck: supple Cardiovascular: normal rate Respiratory/Chest: lungs clear - anteriroly , decreased breath sounds Abdomen: normal bowel sounds, non tender, soft Extremities: no swelling Intake and Output 10/22/17 10/23/17 19:00 07:00 Intake Total 160 ml Output Total 525 ml Balance -365 ml Tube Feeding 160 ml Output Urine Total 525 ml Laboratory Tests Test 10/21/17 21:55 10/22/17 04:10 10/22/17 05:28 Troponin I < 0.017 ng/mL (0.000-0.056) 0.000 ng/mL (0.000-0.056) White Blood Count 10.7 K/UL (4.8-10.8) # Red Blood Count 4.82 M/UL (4.20-5.40) Hemoglobin 11.3 G/DL (12.0-16.0) L Hematocrit 36.9 % (37.0-47.0) L Mean Corpuscular Volume 77 FL (80-99) L Mean Corpuscular Hemoglobin 23.5 PG (27.0-31.0) L Mean Corpuscular Hemoglobin Concent 30.7 G/DL (32.0-36.0) L Red Cell Distribution Width 21.3 % (11.6-14.8) H Platelet Count 250 K/UL (150-450) Mean Platelet Volume 7.1 FL (6.5-10.1) Neutrophils (%) (Auto) 72.1 % (45.0-75.0) Lymphocytes (%) (Auto) 19.6 % (20.0-45.0) L Monocytes (%) (Auto) 7.0 % (1.0-10.0) Eosinophils (%) (Auto) 0.8 % (0.0-3.0) Basophils (%) (Auto) 0.5 % (0.0-2.0) Erythrocyte Sedimentation Rate 46 MM/HR (0-30) H Sodium Level 139 MMOL/L (136-145) Potassium Level 3.1 MMOL/L (3.5-5.1) L Chloride Level 97 MMOL/L (98-107) L Carbon Dioxide Level 40 MMOL/L (21-32) H Anion Gap 1 mmol/L (5-15) L Blood Urea Nitrogen 15 mg/dL (7-18) Creatinine 1.3 MG/DL (0.55-1.30) # Estimat Glomerular Filtration Rate 51.9 mL/min (>60) Glucose Level 117 MG/DL (74-106) H Calcium Level 9.5 MG/DL (8.5-10.1) Phosphorus Level 2.9 MG/DL (2.5-4.9) Magnesium Level 1.8 MG/DL (1.8-2.4) Total Bilirubin 1.2 MG/DL (0.2-1.0) H Direct Bilirubin 0.3 MG/DL (0.0-0.3) Aspartate Amino Transf (AST/SGOT) 12 U/L (15-37) L Alanine Aminotransferase (ALT/SGPT) 11 U/L (12-78) L Alkaline Phosphatase 61 U/L (46-116) C-Reactive Protein, Quantitative 10.4 mg/dL (0.00-0.90) H Total Protein 7.2 G/DL (6.4-8.2) Albumin 3.2 G/DL (3.4-5.0) L Globulin 4.0 g/dL Albumin/Globulin Ratio 0.8 (1.0-2.7) L Arterial Blood pH 7.509 (7.350-7.450) Arterial Blood Partial Pressure CO2 53.7 mmHg (35.0-45.0) H Arterial Blood Partial Pressure O2 49.8 mmHg (75.0-100.0) Arterial Blood HCO3 41.8 mmol/L (22.0-26.0) H Arterial Blood Oxygen Saturation 84.6 % (92.0-98.0) L Arterial Blood Base Excess 16.4 Ike Test Positive Microbiology Date/Time Source Procedure Growth Status 10/20/17 19:45 Arm Right Blood Culture - Preliminary Resulted 10/20/17 19:30 Arm Left Blood Culture - Preliminary Resulted ANDI ZACARIAS Oct 22, 2017 14:07
[2017-10-22] MEDS: Morphine Sulfate 4mg/ml Inj IVP PRN (19:27)
[2017-10-22] MEDS: Atorvastatin 80mg tab ORAL SCH (20:39)
[2017-10-22] MEDS: LORazepam Inj 2mg/ml 1ml IV PRN (22:55)
[2017-10-23] VITALS (24 sets, daily range): BP systolic 84–122; BP diastolic 39–72
[2017-10-23 04:56] LABS: BASOPHILS % (AUTO) 0.6 % (0.0-2.0); EOSINOPHILS % (AUTO) 1.2 % (0.0-3.0); LYMPHOCYTES % (AUTO) 13.7 % (20.0-45.0); MEAN CORPUSCULAR HEMOGLOBIN 22.6 PG (27.0-31.0); MEAN CORPUSCULAR HGB CONC 29.6 G/DL (32.0-36.0); MEAN CORPUSCULAR VOLUME 76 FL (80-99); MEAN PLATELET VOLUME 7.2 FL (6.5-10.1); NEUTROPHILS % (AUTO) 77.6 % (45.0-75.0); PLATELET COUNT 254 K/UL (150-450); RED BLOOD COUNT 4.92 M/UL (4.20-5.40); WHITE BLOOD COUNT 13.6 K/UL (4.8-10.8)
[2017-10-23 05:18] LABS: ALANINE AMINOTRANSFERASE 9 U/L (12-78); ALBUMIN/GLOBULIN RATIO 0.7 (1.0-2.7); ANION GAP 4 mmol/L (5-15); ASPARTATE AMINO TRANSFERASE 12 U/L (15-37); CALCIUM 9.5 MG/DL (8.5-10.1); CARBON DIOXIDE 38 MMOL/L (21-32); CHLORIDE 96 MMOL/L (98-107); CREATININE 2.7 MG/DL (0.55-1.30); GLOMERULAR FILTRATION RATE 22.3 mL/min (>60); MAGNESIUM 2.1 MG/DL (1.8-2.4); PHOSPHORUS 4.4 MG/DL (2.5-4.9); POTASSIUM 3.6 MMOL/L (3.5-5.1); SODIUM 138 MMOL/L (136-145); TOTAL PROTEIN 7.5 G/DL (6.4-8.2)
[2017-10-23] MEDS: NovoLOG Insulin Flexpen SUBQ SCH ×4 (05:38→23:44)
[2017-10-23] MEDS: Morphine Sulfate 4mg/ml Inj IVP PRN ×3 (08:01→20:42)
--- NOTE | 2017-10-23 08:32 | Pulmonolgy Critical Care Note ---
Critical Care - Asmt/Plan Problems: (1) Acute exacerbation of CHF (congestive heart failure) (2) Respiratory failure, acute (3) Sleep apnea (4) Morbid obesity (5) Diabetes mellitus Respiratory: monitor respiratory rate, adjust FIO2, CXR Cardiac: continue to monitor HR/BP Renal: F/U I&O, check electrolytes, other - renal consult requested Infectious Disease: check cultures Gastrointestinal: continue feedings/current rate Endocrine: monitor blood sugar Hematologic: monitor H/H Neurologic: PRN Ativan, PRN Morphine Affect: PRN ativan Prophylaxis: Protonix, Heparin Notes Reviewed: cardio, renal, ID Discussed with: nurses, consultants, family service caseworkergun club manager - Objective Last 24 Hour Vital Signs Date Time Temp Pulse Resp B/P (MAP) Pulse Ox O2 Delivery O2 Flow Rate FiO2 10/23/17 07:00 117 19 103/54 96 Mechanical Ventilator 50 10/23/17 06:53 116 20 50 10/23/17 06:00 115 19 101/48 96 Mechanical Ventilator 50 10/23/17 05:00 116 19 96/43 96 Mechanical Ventilator 50 10/23/17 04:38 110 18 50 10/23/17 04:00 50 10/23/17 04:00 112 10/23/17 04:00 99.3 113 19 98/48 96 Mechanical Ventilator 50 10/23/17 03:00 109 19 122/66 96 Mechanical Ventilator 50 10/23/17 02:48 106 18 50 10/23/17 02:00 113 20 85/41 96 Mechanical Ventilator 50 10/23/17 01:08 112 19 50 10/23/17 01:00 112 20 106/63 96 Mechanical Ventilator 50 10/23/17 00:00 112 10/23/17 00:00 50 10/23/17 00:00 99.3 113 20 93/68 95 Mechanical Ventilator 50 10/22/17 23:08 118 18 50 10/22/17 23:00 121 20 104/56 96 Mechanical Ventilator 50 10/22/17 22:00 112 20 105/67 99 Mechanical Ventilator 50 10/22/17 21:00 118 20 97/76 99 Mechanical Ventilator 50 10/22/17 20:52 116 18 50 10/22/17 20:00 113 10/22/17 20:00 80 10/22/17 20:00 99.5 118 20 80/44 100 Mechanical Ventilator 50 10/22/17 19:28 112 23 50 10/22/17 19:00 118 22 168/95 100 Mechanical Ventilator 50 10/22/17 18:39 98.9 10/22/17 18:03 122 23 109/49 100 Mechanical Ventilator 50 10/22/17 17:00 99.4 22 109/49 95 Mechanical Ventilator 50 10/22/17 16:39 113 24 50 10/22/17 16:03 50 10/22/17 16:00 99.4 117 19 113/75 95 50 10/22/17 16:00 113 10/22/17 15:00 98.0 112 20 131/76 95 Mechanical Ventilator 50 10/22/17 14:44 114 20 50 10/22/17 14:00 98.5 119 21 106/49 92 Mechanical Ventilator 50 10/22/17 12:58 119 21 50 10/22/17 12:50 98.0 115 20 94 Mechanical Ventilator 50 10/22/17 12:24 115 10/22/17 11:29 117 21 50 10/22/17 11:00 110 20 113/61 94 50 10/22/17 10:32 50 10/22/17 10:00 112 22 113/61 94 Mechanical Ventilator 50 10/22/17 09:00 113 21 95/40 92 Mechanical Ventilator 50 10/22/17 08:46 119 23 50 Status: awake Condition: critical HEENT: atraumatic Neck: full ROM Lungs: chest wall tender Heart: HR/BP stable, regular Abdomen: non-tender, active bowel sounds Extremities: no C/C/E, edema Decubiti: stage Micro: Microbiology Date/Time Source Procedure Growth Status 10/20/17 20:45 Nasal Nares MRSA Culture - Final NO METHICILLIN RESISTANT STAPH AUREUS... Complete 10/20/17 20:45 Rectum VRE Culture - Final NO VANCOMYCIN RESISTANT ENTEROCOCCUS ... Complete 10/20/17 19:45 Arm Right Blood Culture - Preliminary Staphylococcus Sp Coag Neg Resulted 10/20/17 19:30 Arm Left Blood Culture - Preliminary Staphylococcus Sp Coag Neg Resulted Accucheck: 123 Critical Care - Subjective ROS Limited/Unobtainable: Yes ICU Day: 4 Intubation Day: 4 Condition: critical EKG Rhythm: Sinus Rhythm FI02: 50 Vent Support Breath Rate: 16 Vent Support Mode: AC Vent Tidal Volume: 500 Sputum Amount: Small PEEP: 7.0 PIP: 30 Tube Feeding Amount: 30 CXR: no change, ET tube in place ET-Tube: 7.5 ET Position: 22 Labs: Laboratory Tests Test 10/22/17 21:00 10/23/17 04:30 Troponin I 0.000 ng/mL (0.000-0.056) White Blood Count 13.6 K/UL (4.8-10.8) H Red Blood Count 4.92 M/UL (4.20-5.40) Hemoglobin 11.1 G/DL (12.0-16.0) L Hematocrit 37.6 % (37.0-47.0) Mean Corpuscular Volume 76 FL (80-99) L Mean Corpuscular Hemoglobin 22.6 PG (27.0-31.0) L Mean Corpuscular Hemoglobin Concent 29.6 G/DL (32.0-36.0) L Red Cell Distribution Width 21.0 % (11.6-14.8) H Platelet Count 254 K/UL (150-450) Mean Platelet Volume 7.2 FL (6.5-10.1) Neutrophils (%) (Auto) 77.6 % (45.0-75.0) H Lymphocytes (%) (Auto) 13.7 % (20.0-45.0) L Monocytes (%) (Auto) 7.0 % (1.0-10.0) Eosinophils (%) (Auto) 1.2 % (0.0-3.0) Basophils (%) (Auto) 0.6 % (0.0-2.0) Sodium Level 138 MMOL/L (136-145) Potassium Level 3.6 MMOL/L (3.5-5.1) Chloride Level 96 MMOL/L (98-107) L Carbon Dioxide Level 38 MMOL/L (21-32) H Anion Gap 4 mmol/L (5-15) L Blood Urea Nitrogen 27 mg/dL (7-18) H Creatinine 2.7 MG/DL (0.55-1.30) #H Estimat Glomerular Filtration Rate 22.3 mL/min (>60) Glucose Level 107 MG/DL (74-106) H Calcium Level 9.5 MG/DL (8.5-10.1) Phosphorus Level 4.4 MG/DL (2.5-4.9) Magnesium Level 2.1 MG/DL (1.8-2.4) Total Bilirubin 1.0 MG/DL (0.2-1.0) Aspartate Amino Transf (AST/SGOT) 12 U/L (15-37) L Alanine Aminotransferase (ALT/SGPT) 9 U/L (12-78) L Alkaline Phosphatase 60 U/L (46-116) Pro-B-Type Natriuretic Peptide 77 pg/mL (0-125) Total Protein 7.5 G/DL (6.4-8.2) Albumin 3.1 G/DL (3.4-5.0) L Globulin 4.4 g/dL Albumin/Globulin Ratio 0.7 (1.0-2.7) L LAMIN NEWTON Oct 23, 2017 08:32
[2017-10-23 08:45] LABS: ABG ALLEN TEST POSITIVE; ABG BASE EXCESS 13.3; ABG PCO2 54.9 mmHg (35.0-45.0)
[2017-10-23] MEDS: Pantoprazole Inj IV SCH (09:19)
[2017-10-23] MEDS: Sertraline 100mg tab ORAL SCH (09:19)
[2017-10-23] MEDS: Heparin 5000 units/ml inj SUBQ SCH ×2 (09:21→20:49)
[2017-10-23 10:17] LABS: URIC ACID 7.3 MG/DL (2.6-7.2)
--- NOTE | 2017-10-23 10:25 | Consultation ---
Consult Note Consult Note asked to eval for renal failure- Cr 0.7 on admit now 2.7 Chief Complaint: Dyspnea/Respdistress Coded Allergies: IODINE (Verified Allergy, Severe, Anaphylaxis, 10/20/17) Lettuce (Verified Allergy, Severe, Anaphylaxis, 10/20/17) SHELLFISH DERIVED (Verified Allergy, Severe, Anaphylaxis, 10/20/17) Uncoded Allergies: SEAFOOD (Allergy, Unknown, 07/21/17) Hx Cardiac Problems: Yes Hx Hypertension: Yes Hx Asthma: Yes Hx Cerebrovascular Accident: Yes Hx Spinal Cord Injury: Yes Patient examined- discussed with switch foreman/Plan Acute renal failure- Multifactorial: Meds- Low BP ... - Respiratory failure, acute Etiology? - Sleep apnea - Morbid obesity - Diabetes mellitus Plan; Hold Vanco- check levels Avoid Nephrotoxics- Slow hydrate 2D Echo? Monitor renal parameters Urine studies TYRONE LOPEZ Oct 23, 2017 10:24
[2017-10-23] MEDS ORDERED: Sodium Chloride 500ML 500 ML IVPB ONE (11:00)
--- NOTE | 2017-10-23 11:09 | Diagnostic Imaging Report ---
Indication: Shortness of breath Technique: XRAY CHEST 1 V Comparison: 10/22/17 Findings: Endotracheal and nasogastric tubes are unchanged. Cardiac silhouette is prominent. Lungs are stable in appearance with perihilar interstitial and linear opacities. Osseous structures are stable. Impression: No significant change from 10/22/17.
[2017-10-23] MEDS: D5NS 1,000 ML IV SCH (11:48)
[2017-10-23] MEDS ORDERED: Tubing IV Secondary IV ONE (15:12)
--- NOTE | 2017-10-23 16:28 | Cardiology Progress Note ---
Assessment/Plan Assessment/Plan respiratory failuer copd hs fo diatlic failure obesity systemic htn bacteremia gp cocci in cluster respiratory acidosis arf pro bnp not sig elevated is on diuretic is on vent blood cx are both positive off diuretic in light fo arf iv abx for bactermia the sourse of bacteremia not yet clear wether has seeded chuck heart valves needs to be determined however there is no evidence for vlave issue to explain her repiratory issue which seem to hve developed gradually TYRONE may be helpfull to see if any vlv pathology will arrange for wanting to com eoff the vent Subjective ROS Limited/Unobtainable: Yes Objective Last 24 Hour Vital Signs Date Time Temp Pulse Resp B/P (MAP) Pulse Ox O2 Delivery O2 Flow Rate FiO2 10/23/17 16:00 99.1 104 17 90/45 95 Mechanical Ventilator 50 10/23/17 15:00 102 17 93/48 95 Mechanical Ventilator 50 10/23/17 14:57 101 17 50 10/23/17 14:00 99.1 101 17 108/72 94 Mechanical Ventilator 50 10/23/17 13:00 99.3 95 17 104/50 95 Mechanical Ventilator 50 10/23/17 12:32 99 18 50 10/23/17 12:00 95 10/23/17 12:00 99.3 100 17 104/50 95 Mechanical Ventilator 50 10/23/17 12:00 50 10/23/17 11:30 97 17 50 10/23/17 11:00 103 17 89/44 95 Mechanical Ventilator 50 10/23/17 10:00 108 17 84/49 94 Mechanical Ventilator 50 10/23/17 09:03 98 19 50 10/23/17 09:00 102 20 89/45 94 Mechanical Ventilator 50 10/23/17 08:00 99.9 110 18 90/43 95 Mechanical Ventilator 50 10/23/17 08:00 50 10/23/17 08:00 112 10/23/17 07:00 117 19 103/54 96 Mechanical Ventilator 50 10/23/17 06:53 116 20 50 10/23/17 06:00 115 19 101/48 96 Mechanical Ventilator 50 10/23/17 05:00 116 19 96/43 96 Mechanical Ventilator 50 10/23/17 04:38 110 18 50 10/23/17 04:00 50 10/23/17 04:00 112 10/23/17 04:00 99.3 113 19 98/48 96 Mechanical Ventilator 50 10/23/17 03:00 109 19 122/66 96 Mechanical Ventilator 50 10/23/17 02:48 106 18 50 10/23/17 02:00 113 20 85/41 96 Mechanical Ventilator 50 10/23/17 01:08 112 19 50 10/23/17 01:00 112 20 106/63 96 Mechanical Ventilator 50 10/23/17 00:00 112 10/23/17 00:00 50 10/23/17 00:00 99.3 113 20 93/68 95 Mechanical Ventilator 50 10/22/17 23:08 118 18 50 10/22/17 23:00 121 20 104/56 96 Mechanical Ventilator 50 10/22/17 22:00 112 20 105/67 99 Mechanical Ventilator 50 10/22/17 21:00 118 20 97/76 99 Mechanical Ventilator 50 10/22/17 20:52 116 18 50 10/22/17 20:00 113 10/22/17 20:00 80 10/22/17 20:00 99.5 118 20 80/44 100 Mechanical Ventilator 50 10/22/17 19:28 112 23 50 10/22/17 19:00 118 22 168/95 100 Mechanical Ventilator 50 10/22/17 18:39 98.9 10/22/17 18:03 122 23 109/49 100 Mechanical Ventilator 50 10/22/17 17:00 99.4 22 109/49 95 Mechanical Ventilator 50 10/22/17 16:39 113 24 50 General Appearance: no apparent distress, alert, on vent Cardiovascular: normal rate, regular rhythm Respiratory/Chest: lungs clear Abdomen: normal bowel sounds, non tender, soft Extremities: no swelling Intake and Output 10/23/17 10/24/17 19:00 07:00 Intake Total 522 ml Output Total 226 ml Balance 296 ml Intake IV Total 152 ml Tube Feeding 270 ml Other 100 ml Output Urine Total 226 ml Laboratory Tests Test 10/22/17 21:00 10/23/17 04:30 10/23/17 04:41 10/23/17 08:40 Troponin I 0.000 ng/mL (0.000-0.056) White Blood Count 13.6 K/UL (4.8-10.8) H Red Blood Count 4.92 M/UL (4.20-5.40) Hemoglobin 11.1 G/DL (12.0-16.0) L Hematocrit 37.6 % (37.0-47.0) Mean Corpuscular Volume 76 FL (80-99) L Mean Corpuscular Hemoglobin 22.6 PG (27.0-31.0) L Mean Corpuscular Hemoglobin Concent 29.6 G/DL (32.0-36.0) L Red Cell Distribution Width 21.0 % (11.6-14.8) H Platelet Count 254 K/UL (150-450) Mean Platelet Volume 7.2 FL (6.5-10.1) Neutrophils (%) (Auto) 77.6 % (45.0-75.0) H Lymphocytes (%) (Auto) 13.7 % (20.0-45.0) L Monocytes (%) (Auto) 7.0 % (1.0-10.0) Eosinophils (%) (Auto) 1.2 % (0.0-3.0) Basophils (%) (Auto) 0.6 % (0.0-2.0) Sodium Level 138 MMOL/L (136-145) Potassium Level 3.6 MMOL/L (3.5-5.1) Chloride Level 96 MMOL/L (98-107) L Carbon Dioxide Level 38 MMOL/L (21-32) H Anion Gap 4 mmol/L (5-15) L Blood Urea Nitrogen 27 mg/dL (7-18) H Creatinine 2.7 MG/DL (0.55-1.30) #H Estimat Glomerular Filtration Rate 22.3 mL/min (>60) Glucose Level 107 MG/DL (74-106) H Calcium Level 9.5 MG/DL (8.5-10.1) Phosphorus Level 4.4 MG/DL (2.5-4.9) Magnesium Level 2.1 MG/DL (1.8-2.4) Total Bilirubin 1.0 MG/DL (0.2-1.0) Aspartate Amino Transf (AST/SGOT) 12 U/L (15-37) L Alanine Aminotransferase (ALT/SGPT) 9 U/L (12-78) L Alkaline Phosphatase 60 U/L (46-116) Pro-B-Type Natriuretic Peptide 77 pg/mL (0-125) Total Protein 7.5 G/DL (6.4-8.2) Albumin 3.1 G/DL (3.4-5.0) L Globulin 4.4 g/dL Albumin/Globulin Ratio 0.7 (1.0-2.7) L Random Vancomycin Level 16.6 ug/mL Arterial Blood pH 7.469 (7.350-7.450) Arterial Blood Partial Pressure CO2 54.9 mmHg (35.0-45.0) H Arterial Blood Partial Pressure O2 58.7 mmHg (75.0-100.0) L Arterial Blood HCO3 39.0 mmol/L (22.0-26.0) H Arterial Blood Oxygen Saturation 89.3 % (92.0-98.0) L Arterial Blood Base Excess 13.3 Ike Test Positive Test 10/23/17 09:20 Uric Acid 7.3 MG/DL (2.6-7.2) H Total Creatine Kinase 101 U/L (26-308) Microbiology Date/Time Source Procedure Growth Status 10/22/17 11:00 Sputum Gram Stain - Final Resulted 10/22/17 11:00 Sputum Sputum Culture Pending Resulted 10/20/17 20:45 Nasal Nares MRSA Culture - Final NO METHICILLIN RESISTANT STAPH AUREUS... Complete 10/20/17 20:45 Rectum VRE Culture - Final NO VANCOMYCIN RESISTANT ENTEROCOCCUS ... Complete 10/20/17 19:45 Arm Right Blood Culture - Preliminary Staphylococcus Sp Coag Neg Resulted 10/20/17 19:30 Arm Left Blood Culture - Preliminary Staphylococcus Sp Coag Neg Resulted ANDI ZACARIAS Oct 23, 2017 16:28
--- NOTE | 2017-10-23 17:32 | Infectious Diseases Prog Note ---
Assessment/Plan Assessment/Plan Assesment CoNS in blood Cx : Contaminant vs bacteremia- r/o endocarditis- -Bcx 10/20 03/02 CoNS -TTE: limited views, no vegetations seen Low grade fever ? CAP vs Bronchitis superimposed and as the couse of CHF hx of facial cellulitis s/p 10d Clindamcyin 04/2017 Acute hypoxic/hypercapenic resp failure 2ry to Acute CHF exacerbation s/p intubation 10/21- -CXR: Cardiomegaly with congestive heart failure.Pulmonary edema. DAGO HTN, DM COPD HLD CHF TOO morbid obesity Plan: -Cont IV Vancomycin d# 2 add Levaquin d# 1 10/22 SP one time dose of Ceftaroline for high grade GPC bacteremia - may need TYRONE to r/o endocarditis and significant valve abnormality -monitor 2 sets of Bcx, Sputum Cx ESR.CRP -Monitor CBC/BMP, temperatures -Vent/ETT care -Aspiration precautions -Cards following Subjective Allergies: Coded Allergies: IODINE (Verified Allergy, Severe, Anaphylaxis, 10/20/17) Lettuce (Verified Allergy, Severe, Anaphylaxis, 10/20/17) SHELLFISH DERIVED (Verified Allergy, Severe, Anaphylaxis, 10/20/17) Uncoded Allergies: SEAFOOD (Allergy, Unknown, 07/21/17) Subjective pt vent Objective Vital Signs Last 24 Hour Vital Signs Date Time Temp Pulse Resp B/P (MAP) Pulse Ox O2 Delivery O2 Flow Rate FiO2 10/23/17 17:23 97 16 50 10/23/17 17:00 100 17 95/40 98 Mechanical Ventilator 50 10/23/17 16:00 50 10/23/17 16:00 103 10/23/17 16:00 99.1 104 17 90/45 95 Mechanical Ventilator 50 10/23/17 15:00 102 17 93/48 95 Mechanical Ventilator 50 10/23/17 14:57 101 17 50 10/23/17 14:00 99.1 101 17 108/72 94 Mechanical Ventilator 50 10/23/17 13:00 99.3 95 17 104/50 95 Mechanical Ventilator 50 10/23/17 12:32 99 18 50 10/23/17 12:00 95 10/23/17 12:00 99.3 100 17 104/50 95 Mechanical Ventilator 50 10/23/17 12:00 50 10/23/17 11:30 97 17 50 10/23/17 11:00 103 17 89/44 95 Mechanical Ventilator 50 10/23/17 10:00 108 17 84/49 94 Mechanical Ventilator 50 10/23/17 09:03 98 19 50 10/23/17 09:00 102 20 89/45 94 Mechanical Ventilator 50 10/23/17 08:00 99.9 110 18 90/43 95 Mechanical Ventilator 50 10/23/17 08:00 50 10/23/17 08:00 112 10/23/17 07:00 117 19 103/54 96 Mechanical Ventilator 50 10/23/17 06:53 116 20 50 10/23/17 06:00 115 19 101/48 96 Mechanical Ventilator 50 10/23/17 05:00 116 19 96/43 96 Mechanical Ventilator 50 10/23/17 04:38 110 18 50 10/23/17 04:00 50 10/23/17 04:00 112 10/23/17 04:00 99.3 113 19 98/48 96 Mechanical Ventilator 50 10/23/17 03:00 109 19 122/66 96 Mechanical Ventilator 50 10/23/17 02:48 106 18 50 10/23/17 02:00 113 20 85/41 96 Mechanical Ventilator 50 10/23/17 01:08 112 19 50 10/23/17 01:00 112 20 106/63 96 Mechanical Ventilator 50 10/23/17 00:00 112 10/23/17 00:00 50 10/23/17 00:00 99.3 113 20 93/68 95 Mechanical Ventilator 50 10/22/17 23:08 118 18 50 10/22/17 23:00 121 20 104/56 96 Mechanical Ventilator 50 10/22/17 22:00 112 20 105/67 99 Mechanical Ventilator 50 10/22/17 21:00 118 20 97/76 99 Mechanical Ventilator 50 10/22/17 20:52 116 18 50 10/22/17 20:00 113 10/22/17 20:00 80 10/22/17 20:00 99.5 118 20 80/44 100 Mechanical Ventilator 50 10/22/17 19:28 112 23 50 10/22/17 19:00 118 22 168/95 100 Mechanical Ventilator 50 10/22/17 18:39 98.9 10/22/17 18:03 122 23 109/49 100 Mechanical Ventilator 50 Height (Feet): 5 Height (Inches): 2.00 Weight (Pounds): 280 HEENT: mucous membranes moist Respiratory/Chest: chest wall non-tender, respiratory distress Cardiovascular: regular rhythm Abdomen: soft, non tender Microbiology Date/Time Source Procedure Growth Status 10/22/17 11:00 Sputum Gram Stain - Final Resulted 10/22/17 11:00 Sputum Sputum Culture Pending Resulted 10/20/17 20:45 Nasal Nares MRSA Culture - Final NO METHICILLIN RESISTANT STAPH AUREUS... Complete 10/20/17 20:45 Rectum VRE Culture - Final NO VANCOMYCIN RESISTANT ENTEROCOCCUS ... Complete 10/20/17 19:45 Arm Right Blood Culture - Preliminary Staphylococcus Sp Coag Neg Resulted 10/20/17 19:30 Arm Left Blood Culture - Preliminary Staphylococcus Sp Coag Neg Resulted Laboratory Tests Test 10/22/17 21:00 10/23/17 04:30 10/23/17 04:41 10/23/17 08:40 Troponin I 0.000 ng/mL (0.000-0.056) White Blood Count 13.6 K/UL (4.8-10.8) H Red Blood Count 4.92 M/UL (4.20-5.40) Hemoglobin 11.1 G/DL (12.0-16.0) L Hematocrit 37.6 % (37.0-47.0) Mean Corpuscular Volume 76 FL (80-99) L Mean Corpuscular Hemoglobin 22.6 PG (27.0-31.0) L Mean Corpuscular Hemoglobin Concent 29.6 G/DL (32.0-36.0) L Red Cell Distribution Width 21.0 % (11.6-14.8) H Platelet Count 254 K/UL (150-450) Mean Platelet Volume 7.2 FL (6.5-10.1) Neutrophils (%) (Auto) 77.6 % (45.0-75.0) H Lymphocytes (%) (Auto) 13.7 % (20.0-45.0) L Monocytes (%) (Auto) 7.0 % (1.0-10.0) Eosinophils (%) (Auto) 1.2 % (0.0-3.0) Basophils (%) (Auto) 0.6 % (0.0-2.0) Sodium Level 138 MMOL/L (136-145) Potassium Level 3.6 MMOL/L (3.5-5.1) Chloride Level 96 MMOL/L (98-107) L Carbon Dioxide Level 38 MMOL/L (21-32) H Anion Gap 4 mmol/L (5-15) L Blood Urea Nitrogen 27 mg/dL (7-18) H Creatinine 2.7 MG/DL (0.55-1.30) #H Estimat Glomerular Filtration Rate 22.3 mL/min (>60) Glucose Level 107 MG/DL (74-106) H Calcium Level 9.5 MG/DL (8.5-10.1) Phosphorus Level 4.4 MG/DL (2.5-4.9) Magnesium Level 2.1 MG/DL (1.8-2.4) Total Bilirubin 1.0 MG/DL (0.2-1.0) Aspartate Amino Transf (AST/SGOT) 12 U/L (15-37) L Alanine Aminotransferase (ALT/SGPT) 9 U/L (12-78) L Alkaline Phosphatase 60 U/L (46-116) Pro-B-Type Natriuretic Peptide 77 pg/mL (0-125) Total Protein 7.5 G/DL (6.4-8.2) Albumin 3.1 G/DL (3.4-5.0) L Globulin 4.4 g/dL Albumin/Globulin Ratio 0.7 (1.0-2.7) L Random Vancomycin Level 16.6 ug/mL Arterial Blood pH 7.469 (7.350-7.450) Arterial Blood Partial Pressure CO2 54.9 mmHg (35.0-45.0) H Arterial Blood Partial Pressure O2 58.7 mmHg (75.0-100.0) L Arterial Blood HCO3 39.0 mmol/L (22.0-26.0) H Arterial Blood Oxygen Saturation 89.3 % (92.0-98.0) L Arterial Blood Base Excess 13.3 Ike Test Positive Test 10/23/17 09:20 Uric Acid 7.3 MG/DL (2.6-7.2) H Total Creatine Kinase 101 U/L (26-308) Current Medications Medications (Trade) Dose Ordered Sig/May Route PRN Reason Start Time Stop Time Status Last Admin Dose Admin Acetaminophen (Tylenol) 650 mg Q4H PRN ORAL Fever 10/21/17 02:11 11/19/17 02:10 10/22/17 17:40 Albuterol/ Ipratropium (Albuterol/ Ipratropium) 3 ml Q4H PRN HHN Shortness of Breath 10/21/17 02:11 10/25/17 02:10 Dextrose (Dextrose 50%) STAT PRN IV Hypoglycemia 10/21/17 02:11 11/19/17 02:10 Dextrose/Sodium Chloride 1,000 ml @ 75 mls/hr [id number] IV 10/23/17 11:00 11/22/17 10:59 10/23/17 11:48 Heparin Sodium (Porcine) (Heparin 5000 units/ml) 5,000 units EVERY 12 HOURS SUBQ 10/21/17 09:00 11/19/17 21:59 10/23/17 09:21 Insulin Aspart (NovoLOG) EVERY 6 HOURS SUBQ 10/21/17 12:00 11/20/17 11:29 10/23/17 12:08 Lorazepam (Ativan 2mg/ml 1ml) 2 mg Q4H PRN IV For Anxiety 10/21/17 09:45 10/28/17 09:44 10/22/17 22:55 Morphine Sulfate (Morphine Sulfate) 4 mg Q4H PRN IVP For Pain 10/21/17 09:45 10/28/17 09:44 10/23/17 15:17 Ondansetron HCl (Zofran) 4 mg Q6H PRN IVP Nausea & Vomiting 10/21/17 02:12 11/19/17 02:11 Pantoprazole (Protonix) 40 mg DAILY IV 10/22/17 09:00 11/21/17 08:59 10/23/17 09:19 Polyethylene Glycol (Miralax) 17 gm DAILYPRN PRN ORAL Constipation 10/21/17 21:45 11/19/17 21:44 10/22/17 17:40 Sertraline HCl (Zoloft) 200 mg DAILY ORAL 10/21/17 09:00 11/20/17 08:59 10/23/17 09:19 Temazepam (Restoril) 15 mg HSPRN PRN ORAL Insomnia 10/21/17 02:12 10/27/17 02:11 FUENTES AYALA M.D. Oct 23, 2017 17:32
[2017-10-23] MEDS ORDERED: Vancomycin 750mg/NS 250ml IVPB ONE (20:00)
[2017-10-23] MEDS: LORazepam Inj 2mg/ml 1ml IV PRN (22:24)
[2017-10-24] VITALS (24 sets, daily range): BP systolic 94–132; BP diastolic 35–67
[2017-10-24] MEDS: D5NS 1,000 ML IV SCH ×2 (00:20→13:12)
[2017-10-24] MEDS: Morphine Sulfate 4mg/ml Inj IVP PRN ×4 (04:38→23:49)
[2017-10-24 05:16] LABS: BASOPHILS % (AUTO) 0.6 % (0.0-2.0); EOSINOPHILS % (AUTO) 3.6 % (0.0-3.0); LYMPHOCYTES % (AUTO) 15.8 % (20.0-45.0); MEAN CORPUSCULAR HEMOGLOBIN 22.4 PG (27.0-31.0); MEAN CORPUSCULAR HGB CONC 29.3 G/DL (32.0-36.0); MEAN CORPUSCULAR VOLUME 76 FL (80-99); MEAN PLATELET VOLUME 5.4 FL (6.5-10.1); MONOCYTES % (AUTO) 7.7 % (1.0-10.0); NEUTROPHILS % (AUTO) 72.4 % (45.0-75.0); PLATELET COUNT 207 K/UL (150-450); RED BLOOD COUNT 4.26 M/UL (4.20-5.40); RED CELL DISTRIBUTION WIDTH 20.2 % (11.6-14.8); WHITE BLOOD COUNT 9.5 K/UL (4.8-10.8)
[2017-10-24 05:31] LABS: HEMOGLOBIN A1C 5.3 % (4.3-6.0)
[2017-10-24 05:38] LABS: CRP QUANT 41.9 mg/dL (0.00-0.90); URIC ACID 6.7 MG/DL (2.6-7.2)
[2017-10-24] MEDS: NovoLOG Insulin Flexpen SUBQ SCH ×4 (05:52→23:41)
[2017-10-24 06:15] LABS: ALANINE AMINOTRANSFERASE 8 U/L (12-78); ALBUMIN/GLOBULIN RATIO 0.9 (1.0-2.7); ANION GAP 5 mmol/L (5-15); ASPARTATE AMINO TRANSFERASE 15 U/L (15-37); CALCIUM 8.7 MG/DL (8.5-10.1); CARBON DIOXIDE 36 MMOL/L (21-32); CHLORIDE 101 MMOL/L (98-107); CHOLESTEROL 132 MG/DL (< 200); CHOLESTEROL/HDL RATIO 2.9 (3.3-4.4); CREATININE 1.8 MG/DL (0.55-1.30); GLOMERULAR FILTRATION RATE 35.8 mL/min (>60); MAGNESIUM 2.2 MG/DL (1.8-2.4); PHOSPHORUS 5.3 MG/DL (2.5-4.9); POTASSIUM 3.6 MMOL/L (3.5-5.1); SODIUM 142 MMOL/L (136-145); THYROID STIMULATING HORMONE 3.852 uiU/mL (0.358-3.740); TOTAL PROTEIN 6.3 G/DL (6.4-8.2)
[2017-10-24 08:27] LABS: ABG ALLEN TEST POSITIVE; ABG BASE EXCESS 9.2; ABG PCO2 60.6 mmHg (35.0-45.0)
[2017-10-24] MEDS ORDERED: 1/2 NS 1000ml IV ONE (09:15)
[2017-10-24] MEDS ORDERED: Tubing IV Secondary IV ONE ×2 (09:15→15:19)
[2017-10-24] MEDS ORDERED: NS 500ML ONE ×2 (09:15→15:19)
[2017-10-24] MEDS: Pantoprazole Inj IV SCH (09:17)
[2017-10-24] MEDS: Sertraline 100mg tab ORAL SCH (09:17)
[2017-10-24] MEDS: Heparin 5000 units/ml inj SUBQ SCH ×2 (09:20→20:46)
--- NOTE | 2017-10-24 10:03 | Diagnostic Imaging Report ---
Indication: Shortness of breath Technique: XRAY CHEST 1 V Comparison: 10/23/17 Findings: Endotracheal and nasogastric tubes are again present. Cardiomediastinal silhouette is stable. Patchy bilateral interstitial and airspace opacities are present. Bilateral mid lung atelectasis is noted. Osseous structures are stable. Impression: No significant change from 10/23/17.
[2017-10-24 10:19] LABS: IRON 11 ug/dL (50-175); TOTAL IRON BINDING CAPACITY 285 ug/dL (250-450)
[2017-10-24 10:32] LABS: FERRITIN 91 NG/ML (8-388)
--- NOTE | 2017-10-24 10:58 | Nephrology Progress Note ---
Assessment/Plan Assessment Acute renal failure- cr lower Multifactorial: Meds- Low BP ( improved) ... - Respiratory failure, acute Etiology? - Sleep apnea - Morbid obesity - Diabetes mellitus Plan Plan; Resume Vanco- check levels Avoid Nephrotoxics- Slow hydrate 2D Echo? Monitor renal parameters Urine studies avoid nephrotoxics- IV Iron Subjective ROS Limited/Unobtainable: Yes Constitutional: Reports: other - on vent Objective Objective Last 24 Hour Vital Signs Date Time Temp Pulse Resp B/P (MAP) Pulse Ox O2 Delivery O2 Flow Rate FiO2 10/24/17 10:00 94 19 102/58 97 Mechanical Ventilator 50 10/24/17 09:00 94 16 101/58 95 Mechanical Ventilator 50 10/24/17 09:00 94 17 101/58 95 Mechanical Ventilator 50 10/24/17 08:45 95 18 50 10/24/17 08:00 98 10/24/17 08:00 99.0 96 18 102/51 95 Mechanical Ventilator 50 10/24/17 07:46 50 10/24/17 07:00 100 14 98/50 97 Mechanical Ventilator 50 10/24/17 06:35 96 18 50 10/24/17 06:00 99 19 100/53 98 Mechanical Ventilator 50 10/24/17 05:23 109 20 50 10/24/17 05:00 100 18 100/46 95 Mechanical Ventilator 50 10/24/17 04:00 92 10/24/17 04:00 50 10/24/17 04:00 98.8 92 17 96/44 96 Mechanical Ventilator 50 10/24/17 03:59 91 17 50 10/24/17 03:00 89 15 104/47 96 Mechanical Ventilator 50 10/24/17 02:00 86 19 100/43 96 Mechanical Ventilator 50 10/24/17 01:15 88 16 50 10/24/17 01:00 87 17 98/40 95 Mechanical Ventilator 50 10/24/17 00:00 90 10/24/17 00:00 50 10/24/17 00:00 98.7 90 17 94/40 97 Mechanical Ventilator 50 10/23/17 23:27 93 17 50 10/23/17 23:00 94 17 90/39 100 Mechanical Ventilator 50 10/23/17 22:00 98 17 97/43 97 Mechanical Ventilator 50 10/23/17 21:17 95 18 50 10/23/17 21:00 105 20 101/57 96 Mechanical Ventilator 50 10/23/17 20:00 50 10/23/17 20:00 98.9 97 18 95/50 96 Mechanical Ventilator 50 10/23/17 20:00 95 10/23/17 19:16 95 20 50 10/23/17 18:59 99.3 95 17 94/45 95 Mechanical Ventilator 50 10/23/17 18:00 90 17 91/45 96 Mechanical Ventilator 50 10/23/17 17:23 97 16 50 10/23/17 17:00 100 17 95/40 98 Mechanical Ventilator 50 10/23/17 16:00 50 10/23/17 16:00 103 10/23/17 16:00 99.1 104 17 90/45 95 Mechanical Ventilator 50 10/23/17 15:00 102 17 93/48 95 Mechanical Ventilator 50 10/23/17 14:57 101 17 50 10/23/17 14:00 99.1 101 17 108/72 94 Mechanical Ventilator 50 10/23/17 13:00 99.3 95 17 104/50 95 Mechanical Ventilator 50 10/23/17 12:32 99 18 50 10/23/17 12:00 95 10/23/17 12:00 99.3 100 17 104/50 95 Mechanical Ventilator 50 10/23/17 12:00 50 10/23/17 11:30 97 17 50 10/23/17 11:00 103 17 89/44 95 Mechanical Ventilator 50 Intake and Output 10/24/17 10/25/17 19:00 07:00 Intake Total 120 ml Output Total 90 ml Balance 30 ml Intake Free Water 40 ml Tube Feeding 60 ml Other 20 ml Output Urine Total 90 ml Laboratory Tests 10/24/17 04:45: White Blood Count 9.5, Red Blood Count 4.26, Hemoglobin 9.5L, Hematocrit 32.6L, Mean Corpuscular Volume 76L, Mean Corpuscular Hemoglobin 22.4L, Mean Corpuscular Hemoglobin Concent 29.3L, Red Cell Distribution Width 20.2H, Platelet Count 207, Mean Platelet Volume 5.4L, Neutrophils (%) (Auto) 72.4, Lymphocytes (%) (Auto) 15.8L, Monocytes (%) (Auto) 7.7, Eosinophils (%) (Auto) 3.6H, Basophils (%) (Auto) 0.6, Sodium Level 142, Potassium Level 3.6, Chloride Level 101, Carbon Dioxide Level 36H, Anion Gap 5, Blood Urea Nitrogen 29H, Creatinine 1.8H, Estimat Glomerular Filtration Rate 35.8, Glucose Level 106, Hemoglobin A1c 5.3, Uric Acid 6.7, Calcium Level 8.7, Phosphorus Level 5.3H, Magnesium Level 2.2, Iron Level 11L, Total Iron Binding Capacity 285, Percent Iron Saturation 4L, Unsaturated Iron Binding 274, Ferritin 91, Total Bilirubin 0.5, Gamma Glutamyl Transpeptidase 10, Aspartate Amino Transf (AST/SGOT) 15, Alanine Aminotransferase (ALT/SGPT) 8L, Alkaline Phosphatase 52, Total Creatine Kinase 161, Troponin I < 0.017, C-Reactive Protein, Quantitative 41.9H, Pro-B- Type Natriuretic Peptide 28, Total Protein 6.3L, Albumin 3.0L, Globulin 3.3, Albumin/Globulin Ratio 0.9L, Triglycerides Level 86, Cholesterol Level 132, LDL Cholesterol 63, HDL Cholesterol 45, Cholesterol/HDL Ratio 2.9L, Thyroid Stimulating Hormone (TSH) 3.852H 10/24/17 05:07: Random Vancomycin Level 15.8 10/24/17 08:20: Arterial Blood pH 7.389, Arterial Blood Partial Pressure CO2 60.6*H, Arterial Blood Partial Pressure O2 66.7L, Arterial Blood HCO3 35.8H, Arterial Blood Oxygen Saturation 90.7L, Arterial Blood Base Excess 9.2, Ike Test Positive 10/24/17 09:16: Urine Eosinophils Negative, Urine Random Sodium 50 Height (Feet): 5 Height (Inches): 2.00 Weight (Pounds): 293 General Appearance: no apparent distress Cardiovascular: tachycardia Respiratory/Chest: decreased breath sounds, other - on Fio2 50% Abdomen: soft, other - obese TYRONE LOPEZ Oct 24, 2017 10:58
--- NOTE | 2017-10-24 11:16 | Pulmonolgy Critical Care Note ---
Critical Care - Asmt/Plan Problems: (1) Acute exacerbation of CHF (congestive heart failure) (2) Respiratory failure, acute (3) Sleep apnea (4) Morbid obesity (5) Diabetes mellitus Respiratory: monitor respiratory rate, adjust FIO2, CXR Cardiac: continue to monitor HR/BP Renal: F/U I&O, keep IV fluid Infectious Disease: check cultures Gastrointestinal: continue feedings/current rate Endocrine: monitor blood sugar, check TSH, check HgA1C, continue sliding scale insulin Hematologic: monitor H/H, transfuse if hgb<8.5 Neurologic: PRN Morphine, keep patient comfortable Prophylaxis: Protonix, Heparin Disposition: keep in ICU Notes Reviewed: study director, renal Discussed with: nurses, consultants, onsite case manageraudience development manager - Objective Last 24 Hour Vital Signs Date Time Temp Pulse Resp B/P (MAP) Pulse Ox O2 Delivery O2 Flow Rate FiO2 10/24/17 11:00 95 18 102/58 95 Mechanical Ventilator 50 10/24/17 10:00 94 19 102/58 97 Mechanical Ventilator 50 10/24/17 09:00 94 16 101/58 95 Mechanical Ventilator 50 10/24/17 09:00 94 17 101/58 95 Mechanical Ventilator 50 10/24/17 08:45 95 18 50 10/24/17 08:00 98 10/24/17 08:00 99.0 96 18 102/51 95 Mechanical Ventilator 50 10/24/17 07:46 50 10/24/17 07:00 100 14 98/50 97 Mechanical Ventilator 50 10/24/17 06:35 96 18 50 10/24/17 06:00 99 19 100/53 98 Mechanical Ventilator 50 10/24/17 05:23 109 20 50 10/24/17 05:00 100 18 100/46 95 Mechanical Ventilator 50 10/24/17 04:00 92 10/24/17 04:00 50 10/24/17 04:00 98.8 92 17 96/44 96 Mechanical Ventilator 50 10/24/17 03:59 91 17 50 10/24/17 03:00 89 15 104/47 96 Mechanical Ventilator 50 10/24/17 02:00 86 19 100/43 96 Mechanical Ventilator 50 10/24/17 01:15 88 16 50 10/24/17 01:00 87 17 98/40 95 Mechanical Ventilator 50 10/24/17 00:00 90 10/24/17 00:00 50 10/24/17 00:00 98.7 90 17 94/40 97 Mechanical Ventilator 50 10/23/17 23:27 93 17 50 10/23/17 23:00 94 17 90/39 100 Mechanical Ventilator 50 10/23/17 22:00 98 17 97/43 97 Mechanical Ventilator 50 10/23/17 21:17 95 18 50 10/23/17 21:00 105 20 101/57 96 Mechanical Ventilator 50 10/23/17 20:00 50 10/23/17 20:00 98.9 97 18 95/50 96 Mechanical Ventilator 50 10/23/17 20:00 95 10/23/17 19:16 95 20 50 10/23/17 18:59 99.3 95 17 94/45 95 Mechanical Ventilator 50 10/23/17 18:00 90 17 91/45 96 Mechanical Ventilator 50 10/23/17 17:23 97 16 50 10/23/17 17:00 100 17 95/40 98 Mechanical Ventilator 50 10/23/17 16:00 50 10/23/17 16:00 103 10/23/17 16:00 99.1 104 17 90/45 95 Mechanical Ventilator 50 10/23/17 15:00 102 17 93/48 95 Mechanical Ventilator 50 10/23/17 14:57 101 17 50 10/23/17 14:00 99.1 101 17 108/72 94 Mechanical Ventilator 50 10/23/17 13:00 99.3 95 17 104/50 95 Mechanical Ventilator 50 10/23/17 12:32 99 18 50 10/23/17 12:00 95 10/23/17 12:00 99.3 100 17 104/50 95 Mechanical Ventilator 50 10/23/17 12:00 50 10/23/17 11:30 97 17 50 Status: awake Condition: critical HEENT: atraumatic, normocephalic Neck: full ROM Lungs: clear Heart: HR/BP stable Abdomen: soft, non-tender, active bowel sounds, feeding tube Extremities: no C/C/E Decubiti: location Micro: Microbiology Date/Time Source Procedure Growth Status 10/22/17 11:55 Blood Blood Culture - Preliminary NO GROWTH AFTER 24 HOURS Resulted 10/22/17 11:35 Blood Blood Culture - Preliminary NO GROWTH AFTER 24 HOURS Resulted 10/22/17 11:00 Sputum Gram Stain - Final Resulted 10/22/17 11:00 Sputum Culture - Preliminary Staphylococcus Aureus Resulted Accucheck: 124 Critical Care - Subjective ROS Limited/Unobtainable: Yes - 4 ICU Day: 4 Intubation Day: 4 Condition: critical EKG Rhythm: Sinus Rhythm FI02: 50 Vent Support Breath Rate: 16 Vent Support Mode: AC Vent Tidal Volume: 500 Sputum Amount: Small PEEP: 7.0 PIP: 36 Fluids: d5 1/2 NS at 75 cc/hour Tube Feeding Amount: 30 I&O: Intake and Output 10/24/17 10/25/17 19:00 07:00 Intake Total 180 ml Output Total 125 ml Balance 55 ml Intake Free Water 40 ml Tube Feeding 120 ml Other 20 ml Output Urine Total 125 ml CXR: ET in good position Left sided infiltrate right is clear ET-Tube: 7.5 ET Position: 22 Labs: Laboratory Tests Test 10/24/17 04:45 10/24/17 05:07 10/24/17 08:20 10/24/17 09:16 White Blood Count 9.5 K/UL (4.8-10.8) Red Blood Count 4.26 M/UL (4.20-5.40) Hemoglobin 9.5 G/DL (12.0-16.0) L Hematocrit 32.6 % (37.0-47.0) L Mean Corpuscular Volume 76 FL (80-99) L Mean Corpuscular Hemoglobin 22.4 PG (27.0-31.0) L Mean Corpuscular Hemoglobin Concent 29.3 G/DL (32.0-36.0) L Red Cell Distribution Width 20.2 % (11.6-14.8) H Platelet Count 207 K/UL (150-450) Mean Platelet Volume 5.4 FL (6.5-10.1) L Neutrophils (%) (Auto) 72.4 % (45.0-75.0) Lymphocytes (%) (Auto) 15.8 % (20.0-45.0) L Monocytes (%) (Auto) 7.7 % (1.0-10.0) Eosinophils (%) (Auto) 3.6 % (0.0-3.0) H Basophils (%) (Auto) 0.6 % (0.0-2.0) Sodium Level 142 MMOL/L (136-145) Potassium Level 3.6 MMOL/L (3.5-5.1) Chloride Level 101 MMOL/L (98-107) Carbon Dioxide Level 36 MMOL/L (21-32) H Anion Gap 5 mmol/L (5-15) Blood Urea Nitrogen 29 mg/dL (7-18) H Creatinine 1.8 MG/DL (0.55-1.30) H Estimat Glomerular Filtration Rate 35.8 mL/min (>60) Glucose Level 106 MG/DL (74-106) Hemoglobin A1c 5.3 % (4.3-6.0) Uric Acid 6.7 MG/DL (2.6-7.2) Calcium Level 8.7 MG/DL (8.5-10.1) Phosphorus Level 5.3 MG/DL (2.5-4.9) H Magnesium Level 2.2 MG/DL (1.8-2.4) Iron Level 11 ug/dL (50-175) L Total Iron Binding Capacity 285 ug/dL (250-450) Percent Iron Saturation 4 % (15-50) L Unsaturated Iron Binding 274 ug/dL (112-346) Ferritin 91 NG/ML (8-388) Total Bilirubin 0.5 MG/DL (0.2-1.0) Gamma Glutamyl Transpeptidase 10 U/L (5-85) Aspartate Amino Transf (AST/SGOT) 15 U/L (15-37) Alanine Aminotransferase (ALT/SGPT) 8 U/L (12-78) L Alkaline Phosphatase 52 U/L (46-116) Total Creatine Kinase 161 U/L (26-308) Troponin I < 0.017 ng/mL (0.000-0.056) C-Reactive Protein, Quantitative 41.9 mg/dL (0.00-0.90) H Pro-B-Type Natriuretic Peptide 28 pg/mL (0-125) Total Protein 6.3 G/DL (6.4-8.2) L Albumin 3.0 G/DL (3.4-5.0) L Globulin 3.3 g/dL Albumin/Globulin Ratio 0.9 (1.0-2.7) L Triglycerides Level 86 MG/DL (30-150) Cholesterol Level 132 MG/DL (< 200) LDL Cholesterol 63 mg/dL (<100) HDL Cholesterol 45 MG/DL (40-60) Cholesterol/HDL Ratio 2.9 (3.3-4.4) L Thyroid Stimulating Hormone (TSH) 3.852 uiU/mL (0.358-3.740) Random Vancomycin Level 15.8 ug/mL Arterial Blood pH 7.389 (7.350-7.450) Arterial Blood Partial Pressure CO2 60.6 mmHg (35.0-45.0) *H Arterial Blood Partial Pressure O2 66.7 mmHg (75.0-100.0) L Arterial Blood HCO3 35.8 mmol/L (22.0-26.0) H Arterial Blood Oxygen Saturation 90.7 % (92.0-98.0) L Arterial Blood Base Excess 9.2 Ike Test Positive Urine Eosinophils Negative Urine Random Sodium 50 MEQ/L (20-110) LAMIN NEWTON Oct 24, 2017 11:16
[2017-10-24] MEDS ORDERED: Vancomycin 1.5 GM/D5W 250ML IVPB SCH (12:00)
[2017-10-24] MEDS ORDERED: Iron Sucrose 200 MG in NS 110 ML IV ONE (12:00)
--- NOTE | 2017-10-24 14:08 | Cardiology Progress Note ---
Assessment/Plan Assessment/Plan respiratory failuer copd hs fo diastolic failure obesity systemic htn bacteremia gp cocci in cluster respiratory acidosis arf chest pain pleuritic trop neg will repeat ekg duplex neg recently vent supprot wean as toelrate abx annetta on Wednesday fi ptr agrees before she get extubated Subjective Cardiovascular: Reports: chest pain - whe she takes a deep breath not when she dose nto take deep breath , Denies: lightheadedness Respiratory: Denies: shortness of breath Gastrointestinal/Abdominal: Denies: abdominal pain Genitourinary: Denies: burning Objective Last 24 Hour Vital Signs Date Time Temp Pulse Resp B/P (MAP) Pulse Ox O2 Delivery O2 Flow Rate FiO2 10/24/17 13:24 95 17 50 10/24/17 13:00 94 17 108/48 98 Mechanical Ventilator 50 10/24/17 12:00 93 10/24/17 12:00 50 10/24/17 12:00 99.1 92 108/48 Mechanical Ventilator 10/24/17 11:20 95 18 50 10/24/17 11:00 95 18 102/58 95 Mechanical Ventilator 50 10/24/17 10:00 94 19 102/58 97 Mechanical Ventilator 50 10/24/17 09:00 94 16 101/58 95 Mechanical Ventilator 50 10/24/17 09:00 94 17 101/58 95 Mechanical Ventilator 50 10/24/17 08:45 95 18 50 10/24/17 08:00 98 10/24/17 08:00 99.0 96 18 102/51 95 Mechanical Ventilator 50 10/24/17 07:46 50 10/24/17 07:00 100 14 98/50 97 Mechanical Ventilator 50 10/24/17 06:35 96 18 50 10/24/17 06:00 99 19 100/53 98 Mechanical Ventilator 50 10/24/17 05:23 109 20 50 10/24/17 05:00 100 18 100/46 95 Mechanical Ventilator 50 10/24/17 04:00 92 10/24/17 04:00 50 10/24/17 04:00 98.8 92 17 96/44 96 Mechanical Ventilator 50 10/24/17 03:59 91 17 50 10/24/17 03:00 89 15 104/47 96 Mechanical Ventilator 50 10/24/17 02:00 86 19 100/43 96 Mechanical Ventilator 50 10/24/17 01:15 88 16 50 10/24/17 01:00 87 17 98/40 95 Mechanical Ventilator 50 10/24/17 00:00 90 10/24/17 00:00 50 10/24/17 00:00 98.7 90 17 94/40 97 Mechanical Ventilator 50 10/23/17 23:27 93 17 50 10/23/17 23:00 94 17 90/39 100 Mechanical Ventilator 50 10/23/17 22:00 98 17 97/43 97 Mechanical Ventilator 50 10/23/17 21:17 95 18 50 10/23/17 21:00 105 20 101/57 96 Mechanical Ventilator 50 10/23/17 20:00 50 10/23/17 20:00 98.9 97 18 95/50 96 Mechanical Ventilator 50 10/23/17 20:00 95 10/23/17 19:16 95 20 50 10/23/17 18:59 99.3 95 17 94/45 95 Mechanical Ventilator 50 10/23/17 18:00 90 17 91/45 96 Mechanical Ventilator 50 10/23/17 17:23 97 16 50 10/23/17 17:00 100 17 95/40 98 Mechanical Ventilator 50 10/23/17 16:00 50 10/23/17 16:00 103 10/23/17 16:00 99.1 104 17 90/45 95 Mechanical Ventilator 50 10/23/17 15:00 102 17 93/48 95 Mechanical Ventilator 50 10/23/17 14:57 101 17 50 General Appearance: no apparent distress, alert, on vent Neck: normal alignment, supple Cardiovascular: normal rate, regular rhythm Respiratory/Chest: lungs clear, normal breath sounds Abdomen: normal bowel sounds, non tender, soft Extremities: no swelling Intake and Output 10/24/17 10/25/17 19:00 07:00 Intake Total 465 ml Output Total 170 ml Balance 295 ml Intake Free Water 40 ml IV Total 225 ml Tube Feeding 180 ml Other 20 ml Output Urine Total 170 ml Laboratory Tests Test 10/24/17 04:45 10/24/17 05:07 10/24/17 08:20 10/24/17 09:16 White Blood Count 9.5 K/UL (4.8-10.8) Red Blood Count 4.26 M/UL (4.20-5.40) Hemoglobin 9.5 G/DL (12.0-16.0) L Hematocrit 32.6 % (37.0-47.0) L Mean Corpuscular Volume 76 FL (80-99) L Mean Corpuscular Hemoglobin 22.4 PG (27.0-31.0) L Mean Corpuscular Hemoglobin Concent 29.3 G/DL (32.0-36.0) L Red Cell Distribution Width 20.2 % (11.6-14.8) H Platelet Count 207 K/UL (150-450) Mean Platelet Volume 5.4 FL (6.5-10.1) L Neutrophils (%) (Auto) 72.4 % (45.0-75.0) Lymphocytes (%) (Auto) 15.8 % (20.0-45.0) L Monocytes (%) (Auto) 7.7 % (1.0-10.0) Eosinophils (%) (Auto) 3.6 % (0.0-3.0) H Basophils (%) (Auto) 0.6 % (0.0-2.0) Sodium Level 142 MMOL/L (136-145) Potassium Level 3.6 MMOL/L (3.5-5.1) Chloride Level 101 MMOL/L (98-107) Carbon Dioxide Level 36 MMOL/L (21-32) H Anion Gap 5 mmol/L (5-15) Blood Urea Nitrogen 29 mg/dL (7-18) H Creatinine 1.8 MG/DL (0.55-1.30) H Estimat Glomerular Filtration Rate 35.8 mL/min (>60) Glucose Level 106 MG/DL (74-106) Hemoglobin A1c 5.3 % (4.3-6.0) Uric Acid 6.7 MG/DL (2.6-7.2) Calcium Level 8.7 MG/DL (8.5-10.1) Phosphorus Level 5.3 MG/DL (2.5-4.9) H Magnesium Level 2.2 MG/DL (1.8-2.4) Iron Level 11 ug/dL (50-175) L Total Iron Binding Capacity 285 ug/dL (250-450) Percent Iron Saturation 4 % (15-50) L Unsaturated Iron Binding 274 ug/dL (112-346) Ferritin 91 NG/ML (8-388) Total Bilirubin 0.5 MG/DL (0.2-1.0) Gamma Glutamyl Transpeptidase 10 U/L (5-85) Aspartate Amino Transf (AST/SGOT) 15 U/L (15-37) Alanine Aminotransferase (ALT/SGPT) 8 U/L (12-78) L Alkaline Phosphatase 52 U/L (46-116) Total Creatine Kinase 161 U/L (26-308) Troponin I < 0.017 ng/mL (0.000-0.056) C-Reactive Protein, Quantitative 41.9 mg/dL (0.00-0.90) H Pro-B-Type Natriuretic Peptide 28 pg/mL (0-125) Total Protein 6.3 G/DL (6.4-8.2) L Albumin 3.0 G/DL (3.4-5.0) L Globulin 3.3 g/dL Albumin/Globulin Ratio 0.9 (1.0-2.7) L Triglycerides Level 86 MG/DL (30-150) Cholesterol Level 132 MG/DL (< 200) LDL Cholesterol 63 mg/dL (<100) HDL Cholesterol 45 MG/DL (40-60) Cholesterol/HDL Ratio 2.9 (3.3-4.4) L Thyroid Stimulating Hormone (TSH) 3.852 uiU/mL (0.358-3.740) Random Vancomycin Level 15.8 ug/mL Arterial Blood pH 7.389 (7.350-7.450) Arterial Blood Partial Pressure CO2 60.6 mmHg (35.0-45.0) *H Arterial Blood Partial Pressure O2 66.7 mmHg (75.0-100.0) L Arterial Blood HCO3 35.8 mmol/L (22.0-26.0) H Arterial Blood Oxygen Saturation 90.7 % (92.0-98.0) L Arterial Blood Base Excess 9.2 Ike Test Positive Urine Eosinophils Negative Urine Random Sodium 50 MEQ/L (20-110) Microbiology Date/Time Source Procedure Growth Status 10/22/17 11:55 Blood Blood Culture - Preliminary NO GROWTH AFTER 24 HOURS Resulted 10/22/17 11:35 Blood Blood Culture - Preliminary NO GROWTH AFTER 24 HOURS Resulted 10/22/17 11:00 Sputum Gram Stain - Final Resulted 10/22/17 11:00 Sputum Culture - Preliminary Staphylococcus Aureus Resulted ANDI ZACARIAS Oct 24, 2017 14:08
--- NOTE | 2017-10-24 15:00 | Cardiology Report ---
APPROVED REPORT EXAM: Two-dimensional and M-mode echocardiogram with Doppler and color Doppler. INDICATION Congestive Heart Failure Technically difficult study due to poor parasternal acoustical windows and patient on ventilator. Lack of parasternal windows. M-mode measurements of left ventricle not obtainable due to cardiac position (angle). Normal left ventricular chamber size, systolic function and wall motion to extent visualized. Left ventricular ejection fraction estimated to be 65-70 %. Mild left ventricular hypertrophy. Anterior Echo-free space, may be due to pericardial fat or effusion. Mild left atrial enlargement by 2D. Right cardiac chamber sizes are within normal limits. Focal aortic valve sclerosis with adequate cusp excursion. Thickened mitral valve leaflets with normal excursion. Mitral annulus and aortic root calcification. Pulmonic valve not visualized. Normal tricuspid valve structure. IVC is normal in size with physiological collapse. A color flow and spectral Doppler study was performed and revealed: No aortic regurgitation. No mitral regurgitation. Mitral inflow velocities indicates possible pseudo normalization pattern implying moderately elevated left atrial pressure (Grade II ). Trace tricuspid regurgitation. Tricuspid systolic velocities suggests peak right ventricular systolic pressure of 12 mmHg.
[2017-10-24] MEDS ORDERED: D5 1/2NS 1000ml IV ONE (15:19)
[2017-10-24] MEDS ORDERED: D5NS 1000ml IV ONE (15:19)
[2017-10-24] MEDS: LORazepam Inj 2mg/ml 1ml IV PRN ×2 (15:32→20:50)
[2017-10-25] VITALS (23 sets, daily range): BP systolic 0–142; BP diastolic 0–87
[2017-10-25] MEDS: LORazepam Inj 2mg/ml 1ml IV PRN ×2 (02:23→19:35)
[2017-10-25 04:59] LABS: BASOPHILS % (AUTO) 0.3 % (0.0-2.0); EOSINOPHILS % (AUTO) 4.5 % (0.0-3.0); LYMPHOCYTES % (AUTO) 17.1 % (20.0-45.0); MEAN CORPUSCULAR HEMOGLOBIN 21.4 PG (27.0-31.0); MEAN CORPUSCULAR VOLUME 76 FL (80-99); MEAN PLATELET VOLUME 7.8 FL (6.5-10.1); MONOCYTES % (AUTO) 9.4 % (1.0-10.0); NEUTROPHILS % (AUTO) 68.7 % (45.0-75.0); PLATELET COUNT 250 K/UL (150-450); RED BLOOD COUNT 4.46 M/UL (4.20-5.40); RED CELL DISTRIBUTION WIDTH 20.2 % (11.6-14.8); WHITE BLOOD COUNT 8.2 K/UL (4.8-10.8)
[2017-10-25 05:25] LABS: LACTATE DEHYDROGENASE 215 U/L (81-234)
[2017-10-25 05:32] LABS: IRON 97 ug/dL (50-175); TOTAL IRON BINDING CAPACITY 297 ug/dL (250-450)
[2017-10-25 05:38] LABS: ALANINE AMINOTRANSFERASE 11 U/L (12-78); ALBUMIN/GLOBULIN RATIO 0.7 (1.0-2.7); ANION GAP 5 mmol/L (5-15); ASPARTATE AMINO TRANSFERASE 17 U/L (15-37); CALCIUM 9.2 MG/DL (8.5-10.1); CARBON DIOXIDE 34 MMOL/L (21-32); CHLORIDE 102 MMOL/L (98-107); CREATININE 1.3 MG/DL (0.55-1.30); GLOMERULAR FILTRATION RATE 51.9 mL/min (>60); MAGNESIUM 2.3 MG/DL (1.8-2.4); PHOSPHORUS 4.2 MG/DL (2.5-4.9); POTASSIUM 3.4 MMOL/L (3.5-5.1); SODIUM 141 MMOL/L (136-145); TOTAL PROTEIN 6.8 G/DL (6.4-8.2); URIC ACID 6.1 MG/DL (2.6-7.2)
[2017-10-25] MEDS: NovoLOG Insulin Flexpen SUBQ SCH ×3 (05:40→17:46)
[2017-10-25 05:42] LABS: INR 0.9 (0.9-1.1); PROTHROMBIN TIME 9.8 SEC (9.30-11.50)
[2017-10-25 05:53] LABS: FOLIC ACID 5.3 NG/ML (3.1-17.5)
[2017-10-25 06:00] LABS: ERYTHROCYTE SEDIMENTATION RATE 80 MM/HR (0-30)
--- NOTE | 2017-10-25 07:45 | Consultation ---
DATE OF CONSULTATION: 10/21/2017 CARDIOLOGY CONSULTATION CONSULTING PHYSICIAN: Tyler Batista M.D. REFERRING PHYSICIAN: Win Ro M.D. ATTENDING PHYSICIAN: Win Ro M.D REASON FOR REFERRAL: Respiratory failure. HISTORY OF PRESENT ILLNESS: This is an elderly female, who is known to me from prior evaluation and hospitalization. The patient apparently has been admitted to the hospital, according to the emergency room physician's notation because of shortness of breath, gradual in onset with rest and with exertion and worsened by lying flat and bilateral extremity edema. The patient currently denied any chest pain to the emergency room and indicated that this is similar to her prior episodes of shortness of breath. She takes 40 mg of Lasix a day and compliant with medication. Apparently, there has been no fever, chills, cough, nausea, or vomiting. She was subsequently admitted with BiPAP to the hospital. However, during the evening, respiratory status worsened, she got intubated, and transferred to the intensive care unit and she has been subsequently sedated. At the time of my evaluation, she was in the intensive care unit on the ventilator, really not communicative, not responsive to provide any meaningful history. The patient's information is obtained from my review of the patient's chart including emergency room physician's report. PAST MEDICAL HISTORY: The patient's past medical history is extensive and includes history of high blood pressure, high cholesterol, diastolic heart failure, COPD with exacerbation, uterine fibroids, history of normal ejection fraction of 50%, renal failure, morbid obesity, sleep apnea, CPAP, tobacco use disorder, and essential hypertension. SOCIAL HISTORY: Does smoke. Alcohol socially. No drugs. 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 REVIEW OF SYSTEMS: Really has been unable to obtain at the present time. PHYSICAL EXAMINATION: GENERAL: Shows to be a middle-aged overweight female, on mechanical ventilator, not responsive or communicative on a Lasix drip. NECK: Supple. LUNGS: Decreased breath sounds noted bilaterally. CARDIAC: Regular rate and rhythm. ABDOMEN: Obese. Positive bowel sounds. Nontender. EXTREMITIES: Mild edema of the lower extremities. NEUROLOGICAL: Sedated. LABORATORY AND DIAGNOSTIC DATA: White count of 6.7, hemoglobin 10.9, and platelet count of 249,000. Blood gases worse with a pH is 7.235 with 113, pO2 of 106 with a bicarbonate of 53, this was recorded at 2 in the morning on 10/21/2017. The patient was subsequently intubated and most recent blood gases 7.57, pCO2 of 50, pO2 97, and saturation of 97.9%. Laboratories, sodium was 142, potassium 2.8, chloride 97, bicarbonate of 40, BUN of 8, creatinine 0.8, glucose of 110. Liver function tests at the time of her original admission to the emergency room were all normal. Troponin was normal. ProBNP was only 320. Her urinalysis was fairly unremarkable at the time of admission. Her chest x-ray on 10/20/2017 at the time of emergency room shows enlarged heart, pulmonary vascular distribution. Volume loss is noted. Right upper lobe decreased density along the minor fissure and this was consistent with probably congestive heart failure. She has had a chest x-ray post intubation that shows heart failure, pulmonary edema, and an ET tube in place. EKG shows normal sinus rhythm with some nonspecific diffuse T-wave abnormalities throughout the entire EKG and in direct comparison with the EKG performed 07/21/2017, there was T-wave changes appeared to be present at that time. ASSESSMENT AND PLAN: 1. Respiratory failure with history of . 2. Chronic obstructive pulmonary disease. 3. Diastolic heart failure. 4. Systemic hypertension. 5. Morbid obesity. 6. Obstructive sleep apnea. Dr. Ro, this patient was seen in cardiac consultation. The patient appears to be quite comfortable at oxygen settings on the ventilator. She is on Lasix drip, which she seems to be responding and she is not very communicative at the present time. Her electrocardiogram has not changed. Serial enzymes should be checked. An echocardiogram will be worth evaluated. Further recommendations based on her response to present therapy. Tyler Batista M.D. DR: Shelley JOB#: [id number] CC:
[2017-10-25] MEDS: D5NS 1,000 ML IV SCH (08:00)
[2017-10-25 08:04] LABS: PATH BLOOD SMEAR/OMC SEND TO PATHOLOGIST; RETICULOCYTE COUNT 0.5 % (0.0-2.0)
[2017-10-25 08:26] LABS: ACANTHOCYTES 1+; ANISOCYTOSIS 1+; BAND NEUTROPHILS % (MANUAL) 0 % (0-8); BASOPHILS % (MANUAL) 1 % (0-2); EOSINOPHILS % (MANUAL) 8 % (0-3); LYMPHOCYTES % (MANUAL) 14 % (20-45); NEUTROPHILS % (MANUAL) 72 % (45-75); PLATELET ESTIMATE ADEQUATE; PLATELET MORPHOLOGY NORMAL; SCHISTOCYTES 1+; TOTAL CELLS COUNTED 100
[2017-10-25] MEDS: Sertraline 100mg tab ORAL SCH (08:52)
[2017-10-25] MEDS: Heparin 5000 units/ml inj SUBQ SCH (08:53)
[2017-10-25] MEDS: Pantoprazole Inj IV SCH (09:00)
--- NOTE | 2017-10-25 10:14 | Diagnostic Imaging Report ---
APPROVED REPORT CPT Code: 94670 Present Symptoms Lower Extremity Pain: Bilateral BILATERAL: Imaging reveals a patent deep venous system bilaterally. There is no evidence of thrombus within the femoral, popliteal or tibial segments. The greater saphenous veins are also within normal limits. Doppler indicates normal spontaneous flow within these segments.
--- NOTE | 2017-10-25 10:31 | Pulmonolgy Critical Care Note ---
Critical Care - Asmt/Plan Problems: (1) Acute exacerbation of CHF (congestive heart failure) (2) Respiratory failure, acute (3) Sleep apnea (4) Morbid obesity (5) Diabetes mellitus Respiratory: monitor respiratory rate, adjust FIO2, CXR Cardiac: continue to monitor HR/BP Renal: F/U I&O, keep IV fluid, check electrolytes Infectious Disease: check cultures Gastrointestinal: continue feedings/current rate Endocrine: monitor blood sugar, check HgA1C, continue sliding scale insulin Hematologic: transfuse if hgb<8.5 Neurologic: PRN Ativan, PRN Morphine, keep patient comfortable Prophylaxis: Protonix, Heparin Disposition: keep in ICU Notes Reviewed: sql engineer, cardio, renal Discussed with: nurses, consultants, case hardenerhealth and safety manager - Objective Last 24 Hour Vital Signs Date Time Temp Pulse Resp B/P (MAP) Pulse Ox O2 Delivery O2 Flow Rate FiO2 10/25/17 10:00 101 20 114/63 98 Mechanical Ventilator 40 10/25/17 09:29 94 17 40 10/25/17 09:00 98 21 112/58 96 Mechanical Ventilator 40 10/25/17 08:00 40 10/25/17 08:00 98.5 98 19 114/53 100 Mechanical Ventilator 40 10/25/17 08:00 103 10/25/17 07:25 89 16 40 10/25/17 07:00 102 18 115/55 100 Mechanical Ventilator 40 10/25/17 06:00 94 17 108/59 94 Mechanical Ventilator 40 10/25/17 05:29 105 22 40 10/25/17 05:00 96 16 142/66 94 Mechanical Ventilator 40 10/25/17 04:00 86 10/25/17 04:00 98.7 86 16 108/53 97 Mechanical Ventilator 40 10/25/17 04:00 40 10/25/17 03:10 94 18 40 10/25/17 03:00 88 18 113/58 97 Mechanical Ventilator 40 10/25/17 02:00 97 19 105/57 92 Mechanical Ventilator 40 10/25/17 01:00 96 17 104/72 93 Mechanical Ventilator 40 10/25/17 00:49 98 18 40 10/25/17 00:00 98.5 92 17 96/50 92 Mechanical Ventilator 40 10/25/17 00:00 92 10/25/17 00:00 40 10/24/17 23:30 90 17 40 10/24/17 23:00 96 19 121/57 94 Mechanical Ventilator 40 10/24/17 22:00 88 17 119/48 94 Mechanical Ventilator 40 10/24/17 21:30 87 16 40 10/24/17 21:00 86 17 113/51 94 Mechanical Ventilator 40 10/24/17 20:00 91 10/24/17 20:00 40 10/24/17 20:00 98.8 89 16 110/53 94 Mechanical Ventilator 40 10/24/17 19:30 89 18 40 10/24/17 19:00 93 18 132/59 94 Mechanical Ventilator 40 10/24/17 18:00 89 16 111/56 99 Mechanical Ventilator 40 10/24/17 17:02 90 16 40 10/24/17 17:00 88 17 117/53 94 Mechanical Ventilator 40 10/24/17 16:00 40 10/24/17 16:00 98 10/24/17 16:00 98.3 83 16 108/62 95 Mechanical Ventilator 40 10/24/17 15:10 92 23 40 10/24/17 15:00 98 24 113/67 100 Mechanical Ventilator 50 10/24/17 14:00 83 16 111/35 96 Mechanical Ventilator 50 10/24/17 13:24 95 17 50 10/24/17 13:00 94 17 108/48 98 Mechanical Ventilator 50 10/24/17 12:00 93 10/24/17 12:00 50 10/24/17 12:00 99.1 92 18 108/48 98 Mechanical Ventilator 50 10/24/17 11:20 95 18 50 10/24/17 11:00 95 18 102/58 95 Mechanical Ventilator 50 Status: awake Condition: critical Lungs: clear, chest wall tender Heart: HR/BP unstable Abdomen: non-tender, active bowel sounds Extremities: no C/C/E Decubiti: location, stage Micro: Microbiology Date/Time Source Procedure Growth Status 10/22/17 11:55 Blood Blood Culture - Preliminary NO GROWTH AFTER 48 HOURS Resulted 10/22/17 11:35 Blood Blood Culture - Preliminary NO GROWTH AFTER 48 HOURS Resulted 10/22/17 11:00 Sputum Gram Stain - Final Complete 10/22/17 11:00 Sputum Culture - Final Staphylococcus Aureus Usual Upper Respiratory Jannet Complete Accucheck: 104 Critical Care - Subjective ROS Limited/Unobtainable: Yes ICU Day: 5 Intubation Day: 5 Condition: critical FI02: 40 Vent Support Breath Rate: 16 Vent Support Mode: AC Vent Tidal Volume: 500 Sputum Amount: Small PEEP: 5.0 PIP: 31 Tube Feeding Amount: 30 I&O: Intake and Output 10/25/17 10/26/17 19:00 07:00 Intake Total 90 ml Output Total 85 ml Balance 5 ml Tube Feeding 90 ml Output Urine Total 85 ml CXR: ET tube in good position, Left infiltrate/edema ET-Tube: 7.5 ET Position: 22 Labs: Laboratory Tests Test 10/25/17 03:50 10/25/17 04:00 White Blood Count 8.2 K/UL (4.8-10.8) Red Blood Count 4.46 M/UL (4.20-5.40) Hemoglobin 9.5 G/DL (12.0-16.0) L Hematocrit 34.0 % (37.0-47.0) L Mean Corpuscular Volume 76 FL (80-99) L Mean Corpuscular Hemoglobin 21.4 PG (27.0-31.0) L Mean Corpuscular Hemoglobin Concent 28.0 G/DL (32.0-36.0) L Red Cell Distribution Width 20.2 % (11.6-14.8) H Platelet Count 250 K/UL (150-450) Mean Platelet Volume 7.8 FL (6.5-10.1) Neutrophils (%) (Auto) 68.7 % (45.0-75.0) Lymphocytes (%) (Auto) 17.1 % (20.0-45.0) L Monocytes (%) (Auto) 9.4 % (1.0-10.0) Eosinophils (%) (Auto) 4.5 % (0.0-3.0) H Basophils (%) (Auto) 0.3 % (0.0-2.0) Differential Total Cells Counted 100 Neutrophils % (Manual) 72 % (45-75) Lymphocytes % (Manual) 14 % (20-45) L Monocytes % (Manual) 5 % (1-10) Eosinophils % (Manual) 8 % (0-3) H Basophils % (Manual) 1 % (0-2) Band Neutrophils 0 % (0-8) Platelet Estimate Adequate Platelet Morphology Normal Anisocytosis 1+ Acanthocytes 1+ Schistocytes 1+ Erythrocyte Sedimentation Rate 80 MM/HR (0-30) H Reticulocyte Count 0.5 % (0.0-2.0) Prothrombin Time 9.8 SEC (9.30-11.50) Prothromb Time International Ratio 0.9 (0.9-1.1) Activated Partial Thromboplast Time 30 SEC (23-33) Sodium Level 141 MMOL/L (136-145) Potassium Level 3.4 MMOL/L (3.5-5.1) L Chloride Level 102 MMOL/L (98-107) Carbon Dioxide Level 34 MMOL/L (21-32) H Anion Gap 5 mmol/L (5-15) Blood Urea Nitrogen 24 mg/dL (7-18) H Creatinine 1.3 MG/DL (0.55-1.30) Estimat Glomerular Filtration Rate 51.9 mL/min (>60) Glucose Level 101 MG/DL (74-106) Uric Acid 6.1 MG/DL (2.6-7.2) Calcium Level 9.2 MG/DL (8.5-10.1) Phosphorus Level 4.2 MG/DL (2.5-4.9) Magnesium Level 2.3 MG/DL (1.8-2.4) Iron Level 97 ug/dL (50-175) Total Iron Binding Capacity 297 ug/dL (250-450) Percent Iron Saturation 33 % (15-50) Unsaturated Iron Binding 200 ug/dL (112-346) Total Bilirubin 0.4 MG/DL (0.2-1.0) Gamma Glutamyl Transpeptidase 14 U/L (5-85) Aspartate Amino Transf (AST/SGOT) 17 U/L (15-37) Alanine Aminotransferase (ALT/SGPT) 11 U/L (12-78) L Alkaline Phosphatase 54 U/L (46-116) Lactate Dehydrogenase 215 U/L (81-234) C-Reactive Protein, Quantitative 36.0 mg/dL (0.00-0.90) H Pro-B-Type Natriuretic Peptide 47 pg/mL (0-125) Total Protein 6.8 G/DL (6.4-8.2) Albumin 2.8 G/DL (3.4-5.0) L Globulin 4.0 g/dL Albumin/Globulin Ratio 0.7 (1.0-2.7) L Vitamin B12 Level 455 PG/ML (193-986) Folate 5.3 NG/ML (3.1-17.5) Urine Eosinophils Positive LAMIN NEWTON Oct 25, 2017 10:31
[2017-10-25] MEDS: Morphine Sulfate 4mg/ml Inj IVP PRN ×2 (10:37→16:31)
[2017-10-25] MEDS ORDERED: KCl 10% 40mEq/30ml liquid NG ONE (11:00)
--- NOTE | 2017-10-25 11:16 | Infectious Diseases Prog Note ---
Assessment/Plan Assessment/Plan Assesment CoNS in blood Cx : Contaminant, however high grade (4/4) vs bacteremia- r/o endocarditis- -Bcx 10/20 4/4 CoNS ( R Oxacillin, S Vanco ZOE 2, Rifampin, cipro, levo); Bcx 10/22 NTD x4 -TTE: limited views, no vegetations seen -elevated ESR/CRP Low grade fever-resolved ? CAP vs Bronchitis superimposed and as the cause of CHF -sp cx MSSA, usual resp evan hx of facial cellulitis s/p 10d Clindamcyin 04/2017 Acute hypoxic/hypercapenic resp failure 2ry to Acute CHF exacerbation s/p intubation 10/21- -CXR: Cardiomegaly with congestive heart failure.Pulmonary edema. DAGO, resolving HTN, DM COPD HLD CHF TOO morbid obesity Plan: -Switch IV Vancomycin #4 to Daptomycin 8mg/kg qd given Vanco ZOE 2 (higher potential for failure) and start Augmentin #1/5 for possible MSSA PNA -10/25 SP IV Vancomycin #4 -10/23 SP Levaquin x1 10/22 SP one time dose of Ceftaroline - agree with plan for TYRONE possibly tomorrow to r/o endocarditis and significant valve abnormality -f/u repeat Bcx -Monitor CBC/BMP, temperatures -Vent/ETT care -Aspiration precautions -Cards following Subjective Allergies: Coded Allergies: IODINE (Verified Allergy, Severe, Anaphylaxis, 10/20/17) Lettuce (Verified Allergy, Severe, Anaphylaxis, 10/20/17) SHELLFISH DERIVED (Verified Allergy, Severe, Anaphylaxis, 10/20/17) Uncoded Allergies: SEAFOOD (Allergy, Unknown, 07/21/17) Subjective afebrile no leukocytosis remains intubated repeat bcx NTD Objective Vital Signs Last 24 Hour Vital Signs Date Time Temp Pulse Resp B/P (MAP) Pulse Ox O2 Delivery O2 Flow Rate FiO2 10/25/17 11:00 102 21 137/76 100 Mechanical Ventilator 40 10/25/17 10:00 101 20 114/63 98 Mechanical Ventilator 40 10/25/17 09:29 94 17 40 10/25/17 09:00 98 21 112/58 96 Mechanical Ventilator 40 10/25/17 08:00 40 10/25/17 08:00 98.5 98 19 114/53 100 Mechanical Ventilator 40 10/25/17 08:00 103 11/27/17 07:25 89 16 40 10/25/17 07:00 102 18 115/55 100 Mechanical Ventilator 40 10/25/17 06:00 94 17 108/59 94 Mechanical Ventilator 40 10/25/17 05:29 105 22 40 10/25/17 05:00 96 16 142/66 94 Mechanical Ventilator 40 10/25/17 04:00 86 10/25/17 04:00 98.7 86 16 108/53 97 Mechanical Ventilator 40 10/25/17 04:00 40 10/25/17 03:10 94 18 40 10/25/17 03:00 88 18 113/58 97 Mechanical Ventilator 40 10/25/17 02:00 97 19 105/57 92 Mechanical Ventilator 40 10/25/17 01:00 96 17 104/72 93 Mechanical Ventilator 40 10/25/17 00:49 98 18 40 10/25/17 00:00 98.5 92 17 96/50 92 Mechanical Ventilator 40 10/25/17 00:00 92 10/25/17 00:00 40 10/24/17 23:30 90 17 40 10/24/17 23:00 96 19 121/57 94 Mechanical Ventilator 40 10/24/17 22:00 88 17 119/48 94 Mechanical Ventilator 40 10/24/17 21:30 87 16 40 10/24/17 21:00 86 17 113/51 94 Mechanical Ventilator 40 10/24/17 20:00 91 10/24/17 20:00 40 10/24/17 20:00 98.8 89 16 110/53 94 Mechanical Ventilator 40 10/24/17 19:30 89 18 40 10/24/17 19:00 93 18 132/59 94 Mechanical Ventilator 40 10/24/17 18:00 89 16 111/56 99 Mechanical Ventilator 40 10/24/17 17:02 90 16 40 10/24/17 17:00 88 17 117/53 94 Mechanical Ventilator 40 10/24/17 16:00 40 10/24/17 16:00 98 10/24/17 16:00 98.3 83 16 108/62 95 Mechanical Ventilator 40 10/24/17 15:10 92 23 40 10/24/17 15:00 98 24 113/67 100 Mechanical Ventilator 50 10/24/17 14:00 83 16 111/35 96 Mechanical Ventilator 50 10/24/17 13:24 95 17 50 10/24/17 13:00 94 17 108/48 98 Mechanical Ventilator 50 10/24/17 12:00 93 10/24/17 12:00 50 10/24/17 12:00 99.1 92 18 108/48 98 Mechanical Ventilator 50 10/24/17 11:20 95 18 50 Height (Feet): 5 Height (Inches): 2.00 Weight (Pounds): 295 Objective General Appearance: intubated, arousable Lines, tubes and drains: peripheral, central line HEENT: normocephalic, atraumatic, ETT in place Neck: non-tender, normal alignment Respiratory/Chest: chest wall non-tender, lungs clear, normal breath sounds Cardiovascular/Chest: normal peripheral pulses, normal rate Abdomen: normal bowel sounds, non tender Genitourinary/Rectal: normal genital exam Extremities: normal range of motion Skin Exam: normal pigmentation, no signs of cellulitis Microbiology Date/Time Source Procedure Growth Status 10/22/17 11:55 Blood Blood Culture - Preliminary NO GROWTH AFTER 48 HOURS Resulted 10/22/17 11:35 Blood Blood Culture - Preliminary NO GROWTH AFTER 48 HOURS Resulted Laboratory Tests Test 10/25/17 03:50 10/25/17 04:00 White Blood Count 8.2 K/UL (4.8-10.8) Red Blood Count 4.46 M/UL (4.20-5.40) Hemoglobin 9.5 G/DL (12.0-16.0) L Hematocrit 34.0 % (37.0-47.0) L Mean Corpuscular Volume 76 FL (80-99) L Mean Corpuscular Hemoglobin 21.4 PG (27.0-31.0) L Mean Corpuscular Hemoglobin Concent 28.0 G/DL (32.0-36.0) L Red Cell Distribution Width 20.2 % (11.6-14.8) H Platelet Count 250 K/UL (150-450) Mean Platelet Volume 7.8 FL (6.5-10.1) Neutrophils (%) (Auto) 68.7 % (45.0-75.0) Lymphocytes (%) (Auto) 17.1 % (20.0-45.0) L Monocytes (%) (Auto) 9.4 % (1.0-10.0) Eosinophils (%) (Auto) 4.5 % (0.0-3.0) H Basophils (%) (Auto) 0.3 % (0.0-2.0) Differential Total Cells Counted 100 Neutrophils % (Manual) 72 % (45-75) Lymphocytes % (Manual) 14 % (20-45) L Monocytes % (Manual) 5 % (1-10) Eosinophils % (Manual) 8 % (0-3) H Basophils % (Manual) 1 % (0-2) Band Neutrophils 0 % (0-8) Platelet Estimate Adequate Platelet Morphology Normal Anisocytosis 1+ Acanthocytes 1+ Schistocytes 1+ Erythrocyte Sedimentation Rate 80 MM/HR (0-30) H Reticulocyte Count 0.5 % (0.0-2.0) Prothrombin Time 9.8 SEC (9.30-11.50) Prothromb Time International Ratio 0.9 (0.9-1.1) Activated Partial Thromboplast Time 30 SEC (23-33) Sodium Level 141 MMOL/L (136-145) Potassium Level 3.4 MMOL/L (3.5-5.1) L Chloride Level 102 MMOL/L (98-107) Carbon Dioxide Level 34 MMOL/L (21-32) H Anion Gap 5 mmol/L (5-15) Blood Urea Nitrogen 24 mg/dL (7-18) H Creatinine 1.3 MG/DL (0.55-1.30) Estimat Glomerular Filtration Rate 51.9 mL/min (>60) Glucose Level 101 MG/DL (74-106) Uric Acid 6.1 MG/DL (2.6-7.2) Calcium Level 9.2 MG/DL (8.5-10.1) Phosphorus Level 4.2 MG/DL (2.5-4.9) Magnesium Level 2.3 MG/DL (1.8-2.4) Iron Level 97 ug/dL (50-175) Total Iron Binding Capacity 297 ug/dL (250-450) Percent Iron Saturation 33 % (15-50) Unsaturated Iron Binding 200 ug/dL (112-346) Total Bilirubin 0.4 MG/DL (0.2-1.0) Gamma Glutamyl Transpeptidase 14 U/L (5-85) Aspartate Amino Transf (AST/SGOT) 17 U/L (15-37) Alanine Aminotransferase (ALT/SGPT) 11 U/L (12-78) L Alkaline Phosphatase 54 U/L (46-116) Lactate Dehydrogenase 215 U/L (81-234) C-Reactive Protein, Quantitative 36.0 mg/dL (0.00-0.90) H Pro-B-Type Natriuretic Peptide 47 pg/mL (0-125) Total Protein 6.8 G/DL (6.4-8.2) Albumin 2.8 G/DL (3.4-5.0) L Globulin 4.0 g/dL Albumin/Globulin Ratio 0.7 (1.0-2.7) L Vitamin B12 Level 455 PG/ML (193-986) Folate 5.3 NG/ML (3.1-17.5) Urine Eosinophils Positive Current Medications Medications (Trade) Dose Ordered Sig/May Route PRN Reason Start Time Stop Time Status Last Admin Dose Admin Acetaminophen (Tylenol) 650 mg Q4H PRN ORAL Fever 10/21/17 02:11 11/19/17 02:10 10/22/17 17:40 Dextrose (Dextrose 50%) STAT PRN IV Hypoglycemia 10/21/17 02:11 11/19/17 02:10 Dextrose/Sodium Chloride 1,000 ml @ 50 mls/hr Q20H IV 10/24/17 12:00 11/23/17 11:59 10/24/17 13:12 Heparin Sodium (Porcine) (Heparin 5000 units/ml) 5,000 units EVERY 12 HOURS SUBQ 10/21/17 09:00 11/19/17 21:59 10/25/17 08:53 Insulin Aspart (NovoLOG) EVERY 6 HOURS SUBQ 10/21/17 12:00 11/20/17 11:29 10/24/17 23:41 Lorazepam (Ativan 2mg/ml 1ml) 2 mg Q4H PRN IV For Anxiety 10/21/17 09:45 10/28/17 09:44 10/25/17 02:23 Morphine Sulfate (Morphine Sulfate) 4 mg Q4H PRN IVP For Pain 10/21/17 09:45 10/28/17 09:44 10/25/17 10:37 Ondansetron HCl (Zofran) 4 mg Q6H PRN IVP Nausea & Vomiting 10/21/17 02:12 11/19/17 02:11 Pantoprazole (Protonix) 40 mg DAILY IV 10/22/17 09:00 11/21/17 08:59 10/25/17 09:00 Polyethylene Glycol (Miralax) 17 gm DAILYPRN PRN ORAL Constipation 10/21/17 21:45 11/19/17 21:44 10/22/17 17:40 Sertraline HCl (Zoloft) 200 mg DAILY ORAL 10/21/17 09:00 11/20/17 08:59 10/25/17 08:52 Temazepam (Restoril) 15 mg HSPRN PRN ORAL Insomnia 10/21/17 02:12 10/27/17 02:11 Vancomycin HCl (Vanco rx to dose) 1 ea DAILY PRN MISC Per rx protocol 10/23/17 17:45 11/22/17 17:44 Vancomycin HCl/ Dextrose 250 ml @ 125 mls/hr Q24H IVPB 10/24/17 12:00 10/29/17 11:59 10/24/17 13:12 Christy Molina M.D. Oct 25, 2017 11:16
--- NOTE | 2017-10-25 11:26 | Nephrology Progress Note ---
Assessment/Plan Problem List: (1) Respiratory failure, acute (2) Morbid obesity (3) Acute renal failure (ARF) Assessment Acute renal failure- cr lower- resolving Multifactorial: Meds- Low BP ( improved) ... - Respiratory failure, acute Etiology? - Sleep apnea - Morbid obesity - Diabetes mellitus Plan Plan; Resume Vanco- check levels Avoid Nephrotoxics- Slow hydrate 2D Echo? Left ventricular ejection fraction estimated to be 65-70 %. Mild left ventricular hypertrophy. Monitor renal parameters Urine studies avoid nephrotoxics- IV Iron Subjective ROS Limited/Unobtainable: Yes Objective Objective Last 24 Hour Vital Signs Date Time Temp Pulse Resp B/P (MAP) Pulse Ox O2 Delivery O2 Flow Rate FiO2 10/25/17 11:00 102 21 137/76 100 Mechanical Ventilator 40 10/25/17 10:00 101 20 114/63 98 Mechanical Ventilator 40 10/25/17 09:29 94 17 40 10/25/17 09:00 98 21 112/58 96 Mechanical Ventilator 40 10/25/17 08:00 40 10/25/17 08:00 98.5 98 19 114/53 100 Mechanical Ventilator 40 10/25/17 08:00 103 10/25/17 07:25 89 16 40 10/25/17 07:00 102 18 115/55 100 Mechanical Ventilator 40 10/25/17 06:00 94 17 108/59 94 Mechanical Ventilator 40 10/25/17 05:29 105 22 40 10/25/17 05:00 96 16 142/66 94 Mechanical Ventilator 40 10/25/17 04:00 86 10/25/17 04:00 98.7 86 16 108/53 97 Mechanical Ventilator 40 10/25/17 04:00 40 10/25/17 03:10 94 18 40 10/25/17 03:00 88 18 113/58 97 Mechanical Ventilator 40 10/25/17 02:00 97 19 105/57 92 Mechanical Ventilator 40 10/25/17 01:00 96 17 104/72 93 Mechanical Ventilator 40 10/25/17 00:49 98 18 40 10/25/17 00:00 98.5 92 17 96/50 92 Mechanical Ventilator 40 10/25/17 00:00 92 10/25/17 00:00 40 10/24/17 23:30 90 17 40 10/24/17 23:00 96 19 121/57 94 Mechanical Ventilator 40 10/24/17 22:00 88 17 119/48 94 Mechanical Ventilator 40 10/24/17 21:30 87 16 40 10/24/17 21:00 86 17 113/51 94 Mechanical Ventilator 40 10/24/17 20:00 91 10/24/17 20:00 40 10/24/17 20:00 98.8 89 16 110/53 94 Mechanical Ventilator 40 10/24/17 19:30 89 18 40 10/24/17 19:00 93 18 132/59 94 Mechanical Ventilator 40 10/24/17 18:00 89 16 111/56 99 Mechanical Ventilator 40 10/24/17 17:02 90 16 40 10/24/17 17:00 88 17 117/53 94 Mechanical Ventilator 40 10/24/17 16:00 40 10/24/17 16:00 98 10/24/17 16:00 98.3 83 16 108/62 95 Mechanical Ventilator 40 10/24/17 15:10 92 23 40 10/24/17 15:00 98 24 113/67 100 Mechanical Ventilator 50 10/24/17 14:00 83 16 111/35 96 Mechanical Ventilator 50 10/24/17 13:24 95 17 50 10/24/17 13:00 94 17 108/48 98 Mechanical Ventilator 50 10/24/17 12:00 93 10/24/17 12:00 50 10/24/17 12:00 99.1 92 18 108/48 98 Mechanical Ventilator 50 Intake and Output 10/25/17 10/26/17 19:00 07:00 Intake Total 120 ml Output Total 120 ml Balance 0 ml Tube Feeding 120 ml Output Urine Total 120 ml Laboratory Tests 10/25/17 03:50: White Blood Count 8.2, Red Blood Count 4.46, Hemoglobin 9.5L, Hematocrit 34.0L, Mean Corpuscular Volume 76L, Mean Corpuscular Hemoglobin 21.4L, Mean Corpuscular Hemoglobin Concent 28.0L, Red Cell Distribution Width 20.2H, Platelet Count 250, Mean Platelet Volume 7.8, Neutrophils (%) (Auto) 68.7, Lymphocytes (%) (Auto) 17.1L, Monocytes (%) (Auto) 9.4, Eosinophils (%) (Auto) 4.5H, Basophils (%) (Auto) 0.3, Differential Total Cells Counted 100, Neutrophils % (Manual) 72, Lymphocytes % (Manual) 14L, Monocytes % (Manual) 5, Eosinophils % (Manual) 8H, Basophils % (Manual) 1, Band Neutrophils 0, Platelet Estimate Adequate, Platelet Morphology Normal, Anisocytosis 1+, Acanthocytes 1+ , Schistocytes 1+, Erythrocyte Sedimentation Rate 80H, Reticulocyte Count 0.5, Prothrombin Time 9.8, Prothromb Time International Ratio 0.9, Activated Partial Thromboplast Time 30, Sodium Level 141, Potassium Level 3.4L, Chloride Level 102 , Carbon Dioxide Level 34H, Anion Gap 5, Blood Urea Nitrogen 24H, Creatinine 1.3 , Estimat Glomerular Filtration Rate 51.9, Glucose Level 101, Uric Acid 6.1, Calcium Level 9.2, Phosphorus Level 4.2, Magnesium Level 2.3, Iron Level 97, Total Iron Binding Capacity 297, Percent Iron Saturation 33, Unsaturated Iron Binding 200, Total Bilirubin 0.4, Gamma Glutamyl Transpeptidase 14, Aspartate Amino Transf (AST/SGOT) 17, Alanine Aminotransferase (ALT/SGPT) 11L, Alkaline Phosphatase 54, Lactate Dehydrogenase 215, C-Reactive Protein, Quantitative 36.0H, Pro-B-Type Natriuretic Peptide 47, Total Protein 6.8, Albumin 2.8L, Globulin 4.0, Albumin/Globulin Ratio 0.7L, Vitamin B12 Level 455, Folate 5.3 10/25/17 04:00: Urine Eosinophils Positive Height (Feet): 5 Height (Inches): 2.00 Weight (Pounds): 295 General Appearance: no apparent distress EENT: other - on Vent Cardiovascular: tachycardia Respiratory/Chest: decreased breath sounds Abdomen: distended Objective no change TYRONE LOPEZ Oct 25, 2017 11:26
[2017-10-25 11:40] LABS: OTHERS PATHOLOGIST COMMENT
[2017-10-25] MEDS ORDERED: Augmentin 875mg Tab ORAL SCH (12:00)
[2017-10-25] MEDS ORDERED: DAPTOmycin 1,000 MG in NS 55 ML IV SCH (14:00)
--- NOTE | 2017-10-25 15:12 | Diagnostic Imaging Report ---
Indication: DYSPNEA Technique: One view of the chest Comparison: 10/24/2017 Findings: Patient's chin obscures the upper mediastinum. The heart is enlarged. Again demonstrated is bilateral diffuse mixed interstitial and alveolar parenchymal disease. Endotracheal tube again demonstrated, tip projected in good position. Nasogastric tube is in place, tip probably within the stomach although not well-demonstrated as it is obscured by overlying soft tissue. Impression: Unchanged, over one day, findings as above.
[2017-10-25] MEDS ORDERED: NS 500ML ONE (16:03)
[2017-10-25] MEDS ORDERED: Tubing IV Secondary IV ONE (16:03)
--- NOTE | 2017-10-25 18:28 | Cardiology Progress Note ---
Assessment/Plan Assessment/Plan respiratory failuer copd hs fo diastolic failure obesity systemic htn bacteremia gp cocci in cluster respiratory acidosis arf chest pain pleuritic trop neg will repeat ekg duplex neg recently vent support wean as tolerate after annetta tomorrow abx annetta tomorrow d/w son possible risk and complication informed consent obtained d/w pt as well Subjective ROS Limited/Unobtainable: Yes Objective Last 24 Hour Vital Signs Date Time Temp Pulse Resp B/P (MAP) Pulse Ox O2 Delivery O2 Flow Rate FiO2 10/25/17 18:03 95 16 128/61 95 Mechanical Ventilator 40 10/25/17 17:03 97 17 40 10/25/17 17:00 99 17 121/57 96 Mechanical Ventilator 40 10/25/17 16:00 96 10/25/17 16:00 40 10/25/17 16:00 97.6 95 16 120/70 99 Mechanical Ventilator 40 10/25/17 15:14 101 21 40 10/25/17 15:00 105 19 131/59 97 Mechanical Ventilator 40 10/25/17 14:00 96 22 132/56 95 Mechanical Ventilator 40 10/25/17 13:26 92 16 40 10/25/17 13:00 90 16 114/59 95 Mechanical Ventilator 40 10/25/17 12:00 94 10/25/17 12:00 97.6 95 17 101/87 94 Mechanical Ventilator 40 10/25/17 12:00 40 10/25/17 11:26 92 20 40 10/25/17 11:00 102 21 137/76 100 Mechanical Ventilator 40 10/25/17 10:00 101 20 114/63 98 Mechanical Ventilator 40 10/25/17 09:29 94 17 40 10/25/17 09:00 98 21 112/58 96 Mechanical Ventilator 40 10/25/17 08:00 40 10/25/17 08:00 98.5 98 19 114/53 100 Mechanical Ventilator 40 10/25/17 08:00 103 10/25/17 07:25 89 16 40 10/25/17 07:00 102 18 115/55 100 Mechanical Ventilator 40 10/25/17 06:00 94 17 108/59 94 Mechanical Ventilator 40 10/25/17 05:29 105 22 40 10/25/17 05:00 96 16 142/66 94 Mechanical Ventilator 40 10/25/17 04:00 86 10/25/17 04:00 98.7 86 16 108/53 97 Mechanical Ventilator 40 10/25/17 04:00 40 10/25/17 03:10 94 18 40 10/25/17 03:00 88 18 113/58 97 Mechanical Ventilator 40 10/25/17 02:00 97 19 105/57 92 Mechanical Ventilator 40 10/25/17 01:00 96 17 104/72 93 Mechanical Ventilator 40 10/25/17 00:49 98 18 40 10/25/17 00:00 98.5 92 17 96/50 92 Mechanical Ventilator 40 10/25/17 00:00 92 10/25/17 00:00 40 10/24/17 23:30 90 17 40 10/24/17 23:00 96 19 121/57 94 Mechanical Ventilator 40 10/24/17 22:00 88 17 119/48 94 Mechanical Ventilator 40 10/24/17 21:30 87 16 40 10/24/17 21:00 86 17 113/51 94 Mechanical Ventilator 40 10/24/17 20:00 91 10/24/17 20:00 40 10/24/17 20:00 98.8 89 16 110/53 94 Mechanical Ventilator 40 10/24/17 19:30 89 18 40 10/24/17 19:00 93 18 132/59 94 Mechanical Ventilator 40 General Appearance: alert, on vent Neck: supple Cardiovascular: normal rate, regular rhythm Respiratory/Chest: lungs clear, normal breath sounds Abdomen: normal bowel sounds, non tender, soft Extremities: no swelling Intake and Output 10/25/17 10/26/17 19:00 07:00 Intake Total 485 ml Output Total 402 ml Balance 83 ml IV Total 155 ml Tube Feeding 330 ml Output Urine Total 402 ml Laboratory Tests Test 10/25/17 03:50 10/25/17 04:00 White Blood Count 8.2 K/UL (4.8-10.8) Red Blood Count 4.46 M/UL (4.20-5.40) Hemoglobin 9.5 G/DL (12.0-16.0) L Hematocrit 34.0 % (37.0-47.0) L Mean Corpuscular Volume 76 FL (80-99) L Mean Corpuscular Hemoglobin 21.4 PG (27.0-31.0) L Mean Corpuscular Hemoglobin Concent 28.0 G/DL (32.0-36.0) L Red Cell Distribution Width 20.2 % (11.6-14.8) H Platelet Count 250 K/UL (150-450) Mean Platelet Volume 7.8 FL (6.5-10.1) Neutrophils (%) (Auto) 68.7 % (45.0-75.0) Lymphocytes (%) (Auto) 17.1 % (20.0-45.0) L Monocytes (%) (Auto) 9.4 % (1.0-10.0) Eosinophils (%) (Auto) 4.5 % (0.0-3.0) H Basophils (%) (Auto) 0.3 % (0.0-2.0) Differential Total Cells Counted 100 Neutrophils % (Manual) 72 % (45-75) Lymphocytes % (Manual) 14 % (20-45) L Monocytes % (Manual) 5 % (1-10) Eosinophils % (Manual) 8 % (0-3) H Basophils % (Manual) 1 % (0-2) Band Neutrophils 0 % (0-8) Other Cell Type Pathologist comment Platelet Estimate Adequate Platelet Morphology Normal Anisocytosis 1+ Acanthocytes 1+ Schistocytes 1+ Erythrocyte Sedimentation Rate 80 MM/HR (0-30) H Reticulocyte Count 0.5 % (0.0-2.0) Prothrombin Time 9.8 SEC (9.30-11.50) Prothromb Time International Ratio 0.9 (0.9-1.1) Activated Partial Thromboplast Time 30 SEC (23-33) Sodium Level 141 MMOL/L (136-145) Potassium Level 3.4 MMOL/L (3.5-5.1) L Chloride Level 102 MMOL/L (98-107) Carbon Dioxide Level 34 MMOL/L (21-32) H Anion Gap 5 mmol/L (5-15) Blood Urea Nitrogen 24 mg/dL (7-18) H Creatinine 1.3 MG/DL (0.55-1.30) Estimat Glomerular Filtration Rate 51.9 mL/min (>60) Glucose Level 101 MG/DL (74-106) Uric Acid 6.1 MG/DL (2.6-7.2) Calcium Level 9.2 MG/DL (8.5-10.1) Phosphorus Level 4.2 MG/DL (2.5-4.9) Magnesium Level 2.3 MG/DL (1.8-2.4) Iron Level 97 ug/dL (50-175) Total Iron Binding Capacity 297 ug/dL (250-450) Percent Iron Saturation 33 % (15-50) Unsaturated Iron Binding 200 ug/dL (112-346) Total Bilirubin 0.4 MG/DL (0.2-1.0) Gamma Glutamyl Transpeptidase 14 U/L (5-85) Aspartate Amino Transf (AST/SGOT) 17 U/L (15-37) Alanine Aminotransferase (ALT/SGPT) 11 U/L (12-78) L Alkaline Phosphatase 54 U/L (46-116) Lactate Dehydrogenase 215 U/L (81-234) C-Reactive Protein, Quantitative 36.0 mg/dL (0.00-0.90) H Pro-B-Type Natriuretic Peptide 47 pg/mL (0-125) Total Protein 6.8 G/DL (6.4-8.2) Albumin 2.8 G/DL (3.4-5.0) L Globulin 4.0 g/dL Albumin/Globulin Ratio 0.7 (1.0-2.7) L Vitamin B12 Level 455 PG/ML (193-986) Folate 5.3 NG/ML (3.1-17.5) Urine Eosinophils Positive ANDI ZACARIAS Oct 25, 2017 18:28
--- NOTE | 2017-10-25 18:29 | Cardiology Report ---
APPROVED REPORT EKG Measurement Heart [id number] Normal sinus rhythm Nonspecific T wave abnormality Prolonged QT Abnormal ECG
--- NOTE | 2017-10-25 23:37 | Emergency Room Report ---
Physical Exam A CODE BLUE was called in the ICU. Apparently the patient was agitated and received a dose of Ativan. She was biting down on the endotracheal tube at that time. The respiratory therapist was able to put in a bite block. No difficulty after that time receiving volumes. Some increased resistance, relieved with bite block. This preceded the code by several minutes. The patient became bradycardic and needs a CODE BLUE was called. Epinephrine was given 3 times before arrived. CPR was being performed with good pulses. The heart rate was 26. Last 24 Hour Vital Signs Date Time Temp Pulse Resp B/P (MAP) Pulse Ox O2 Delivery O2 Flow Rate FiO2 10/25/17 21:07 26 0/0 0 Ambu-Bag 40 10/25/17 21:00 105 17 91/70 57 Mechanical Ventilator 40 10/25/17 20:00 40 10/25/17 20:00 98.2 95 16 119/69 99 Mechanical Ventilator 40 10/25/17 19:30 111 16 Mechanical Ventilator 40 10/25/17 19:26 111 16 40 10/25/17 19:00 104 17 123/59 98 Mechanical Ventilator 40 10/25/17 18:03 95 16 128/61 95 Mechanical Ventilator 40 10/25/17 17:03 97 17 40 10/25/17 17:00 99 17 121/57 96 Mechanical Ventilator 40 10/25/17 16:00 96 10/25/17 16:00 40 10/25/17 16:00 97.6 95 16 120/70 99 Mechanical Ventilator 40 10/25/17 15:14 101 21 40 10/25/17 15:00 105 19 131/59 97 Mechanical Ventilator 40 10/25/17 14:00 96 22 132/56 95 Mechanical Ventilator 40 10/25/17 13:26 92 16 40 10/25/17 13:00 90 16 114/59 95 Mechanical Ventilator 40 10/25/17 12:00 94 10/25/17 12:00 97.6 95 17 101/87 94 Mechanical Ventilator 40 10/25/17 12:00 40 10/25/17 11:26 92 20 40 10/25/17 11:00 102 21 137/76 100 Mechanical Ventilator 40 10/25/17 10:00 101 20 114/63 98 Mechanical Ventilator 40 10/25/17 09:29 94 17 40 10/25/17 09:00 98 21 112/58 96 Mechanical Ventilator 40 10/25/17 08:00 40 10/25/17 08:00 98.5 98 19 114/53 100 Mechanical Ventilator 40 10/25/17 08:00 103 10/25/17 07:25 89 16 40 10/25/17 07:00 102 18 115/55 100 Mechanical Ventilator 40 10/25/17 06:00 94 17 108/59 94 Mechanical Ventilator 40 10/25/17 05:29 105 22 40 10/25/17 05:00 96 16 142/66 94 Mechanical Ventilator 40 10/25/17 04:00 86 10/25/17 04:00 98.7 86 16 108/53 97 Mechanical Ventilator 40 10/25/17 04:00 40 10/25/17 03:10 94 18 40 10/25/17 03:00 88 18 113/58 97 Mechanical Ventilator 40 10/25/17 02:00 97 19 105/57 92 Mechanical Ventilator 40 10/25/17 01:00 96 17 104/72 93 Mechanical Ventilator 40 10/25/17 00:49 98 18 40 10/25/17 00:00 98.5 92 17 96/50 92 Mechanical Ventilator 40 10/25/17 00:00 92 10/25/17 00:00 40 Sp02 EP Interpretation: reviewed, abnormal - hypoxic General Appearance: obese, other - CPR - unresponsive Head: normocephalic Eyes: bilateral eye other - unresponsive ENT: other - ET tube Neck: other - flaccid trach looks midline Respiratory: other - decreased BS R - normal/adventitial BS L Cardiovascular #1: other - pulses only with CPR Gastrointestinal: decreased bowel sounds, overweight Genitourinary: other Musculoskeletal: other - flaccid Neurologic: other - unresponsive Psychiatric: other - coma Skin: cyanosis Chest Tube Chest Tube : Consent: Emergent Chest Tube Location: mid axillary line - 5th ICS Chest Tube Procedure: betadine prep, sterile drapes applied Prado of Air Polk: No Number of Attempts: One Tube Drainage: some blood - 15 ml Tube Sutured to Skin: Yes Patient Tolerated: Other - procedure successful, patient Complications: None Progress Incision made with 10 blade. Blunt dissection. No prado of air with entering the chest cavity. 28 fr tube advanced without difficulty. Sutured. CPR/Code Blue CPR/Code Blue Narrative CODE BLUE: Called 21:07. CPR being performed and supervised and done by me occasionally with good pulses. EPI 3 amps had been given prior to my arrival. Rhythm PEA rate 26. 4th Epi given. ABG by me L femoral. Atropine given. Due to PEA bradycardic arrest with decreased BS on R, presumptive tension pneumo. R chest tube - no evidence of increased pressure. (some blood after) ABG with significant respiratory acidosis and relative hypoxia. Epi and atropine repeated. Patient demonstrates cardiopulmonary unresponsiveness - code terminated at 21: 35 and patient pronounced. Medical Decision Making Diagnostic Impression: Primary Impression: Pulseless electrical activity Additional Impression: Cardiopulmonary arrest ER Course Patient with bradycardic PEA arrest after period of agitation. Decreased BS on R. No evidence of tension when chest tube placed. See Code Blue sheet and procedure notes. Presumptive PE. Rhythm Strip Diag. Results EP Interpretation: yes Rhythm: no PVC's, no ectopy, other - bradycardia Last Vital Signs Date Time Temp Pulse Resp B/P (MAP) Pulse Ox O2 Delivery O2 Flow Rate FiO2 10/25/17 21:07 26 0/0 0 Ambu-Bag 40 10/25/17 21:00 17 10/25/17 20:00 98.2 10/20/17 22:00 3.0 Status: worsened Disposition: Condition: Referrals: NOT CHOSEN IPA/,REFERRING (PCP) Daquan Love M.D. Oct 25, 2017 23:37
[2017-10-25] MEDS ORDERED: Atropine Inj 1mg/10ml Syr ONE (23:51)
--- NOTE | 2017-10-27 10:42 | Discharge Summary ---
Discharge Summary Hospital Course Date of Admission Oct 20, 2017 at 20:20 Date of Discharge Oct 25, 2017 at 23:52 Admitting Diagnosis CHF EXCACERBATION HPI Christina Jimenez is a 52 year old female who was admitted on Oct 20, 2017 at 20:20 for Chronic Heart Failure Excacerbation Hospital Course summary #[id number] Discharge Discharge Disposition Patient Discharge Diagnoses: Discharge Instructions Discharge Instructions Special Instructions I have been assigned to complete a D/C Summary on this account. I was not involved in the patient management Arminda Arnold NP (Vanchtein) Oct 27, 2017 10:42
--- NOTE | 2017-10-28 01:01 | Discharge Summary 2 SIG ---
SUMMARY DATE OF ADMISSION: 10/20/2017 DATE OF EXPIRATION: 10/25/2017 REASON FOR ADMISSION: 52-year-old female with multiple chronic medical problems including chronic obstructive pulmonary disease/asthma, diabetes, congestive heart failure, hypertension, obstructive sleep apnea, and morbid obesity, presented with complaints of shortness of breath for several weeks. In the emergency department, she was hypoxic and tachypneic. Troponin was negative. The patient was given one dose of Lasix. Chest x-ray revealed congestive heart failure and cardiomegaly. The patient was placed on the BiPAP and admitted to [facility] for further management with diagnosis of acute congestive heart failure exacerbation and respiratory distress. HOSPITAL COURSE: The patient was admitted to [facility]. Initial ABG revealed evidence of hypercapnia with pCO2- 75.8. The patient was started on Lasix drip. Renal parameters and electrolytes were closely monitored. Cardiology consult was requested. The patient was followed up over the evening and early night with ABG. BiPAP settings were increased subsequently to 15/5. On the morning of 10/21/2017, the patient became unresponsive. ED doctor was called for evaluation. ABG revealed severe and worsening hypercapnia with pCO2-129.The patient was emergently intubated and transferred to ICU for further management. Chest x-ray confirmed ET tube placement. Ventilator support provided. Pulmonary toilet provided as needed. The patient was followed up with daily chest x-ray and ABG. The patient was on Lasix drip. Renal parameters and electrolytes were closely monitored. On 10/23/2017, the patient developed evidence of acute renal failure with BUN -27 and creatinine -2.7. Lasix was stopped. Nephrology consult was requested. The patient was started on slow hydration. On 10/25/2017, creatinine down to 1.3. The patient was awake, alert, and responsive. On 10/23/2017 noted leukocytosis and low grade fever. ID consult was requested. The patient was started on empiric antibiotics. Urinalysis was negative. Sputum culture was positive for Staph aureus, methicillin-sensitive. Blood culture revealed 2/4 Staphylococcus epidermidis and 2/4 staph coag-negative. Due to the high degree of bacteremia, echocardiogram was done. Echocardiogram did not revealed any evidence of vegetation, but had limited views. It demonstrated preserved ejection fraction of 65% to 70% and right ventricular systolic pressure of 12. Subsequently, TYRONE was planned by runway model to rule out endocarditis. Consent was obtained. Serial troponin were negative. Venous duplex of bilateral lower extremities was negative. Pro BNP trended down to normal after diuresis. Chest x-ray on 10/23/2017 showed slightly improved bilateral parenchymal congestion TYRONE was planned to rule out endocarditis or significant valve abnormalities. Plan was to wean the patient after TYRONE completed. Patient demonstrated elevated inflammatory markers ( ESR, CRP). Per ID, the patient had a possible community-acquired pneumonia versus bronchitis superimposed. The patient was on antibiotics. Leukocytosis, presented for one day, resolved. No fever. Renal parameters were improving. Blood sugar was managed with sliding scale of insulin. The patient was normotensive, no antihypertensive medications required at this time. According to runway model, who had seen the patient on 10/25/2017 in the evening time, the patient appeared to be stable, and TYRONE was planned for 10/26/2017 with weaning after TYRONE. However, at 20:11 on 10/25/2017 code Blue was called. The patient demonstrated pulseless electrical activity and bradycardic arrest. ED doctor noted decreased breath sounds on the right, presumed tension pneumothorax, subsequently emergent right chest tube was inserted without evidence of increased pressure/ no evidence of tension, which ruled out tension pneumothorax. Despite all resuscitative efforts, the patient demonstrated cardiopulmonary unresponsiveness. Code terminated at 21:35 hours, and the patient was pronounced. CAUSE OF : Cardiopulmonary arrest FINAL DIAGNOSES: 1. Status post cardiopulmonary arrest secondary to pulseless electrical activity and bradycardic arrest. 2. Possible pulmonary embolism. 3. Acute hypoxic hypercapnic respiratory failure requiring intubation on 10/21/2017. 4. Bacteremia with Staphylococcus epidermidis and Staphylococcus coagulase-negative. 5. Pulmonary edema. 6. Possible community-acquired pneumonia with methicillin-susceptible Staphylococcus aureus versus bronchitis superimposed. 7. Acute congestive heart failure exacerbation. 8. Acute renal failure 9. Pleuritic chest pain. 10. Systolic hypertension 11. Obstructive sleep apnea. 12. Morbid obesity. 13. Chronic obstructive pulmonary disease. 14. Diabetes. Win Ro M.D. I have been assigned to dictate discharge summary on this account and I was not involved in the patient's management. Arminda Arnold N.P. (Vanchtein) DR: TRUMAN JOB#: [id number] CC: [email or web address]
--- NOTE | 2017-10-30 17:58 | Cardiology Report ---
APPROVED REPORT EKG Measurement Heart [id number] IN [id number] Sinus rhythm with premature atrial complexes with aberrant conduction T wave abnormality, consider anterolateral ischemia Abnormal ECG
--- NOTE | 2017-11-01 10:38 | Cardiology Report ---
APPROVED REPORT EXAM: Two-dimensional and M-mode echocardiogram with Doppler and color Doppler. INDICATION Left ventricular function Technically limited and difficult study due to poor acoustical windows. Lack of parasternal windows. Normal left ventricular chamber size, systolic function and wall motion. M-mode measurements not obtainable due to cardiac structure. Left ventricular ejection fraction estimated to be 60-65%. No evidence of left ventricular hypertrophy. No evidence of pericardial or pleural effusion. Right cardiac chamber sizes are within normal limits. Mild left atrial enlargement by 2D. Focal aortic valve sclerosis with adequate cusp excursion. Thickened mitral valve leaflets with normal excursion. Mild mitral annulus and aortic root calcification. Pulmonic valve not visualized. Normal tricuspid valve structure. IVC is normal in size and collapsible with respiration. A color flow and spectral Doppler study was performed and revealed: No aortic regurgitation. No mitral regurgitation. Mitral diastolic velocities suggest reduced left ventricular relaxation c/w diastolic dysfunction grade 1. No tricuspid regurgitation.
== END 2017-10-25 23:52 | disposition expired | DRG 207 ==
LOC: EMR 19:30 → 2W 20:20 → EDBEDREQ 20:45 → ICU 10-21 01:40
PROC: 5A1955Z Respiratory Ventilation, Greater than 96 Consecutive Hours (ICD-10-PCS; principal; 2017-10-21)
PROC: 0BH17EZ Insertion of Endotracheal Airway into Trachea, Via Natural or Artificial Opening (ICD-10-PCS; principal; 2017-10-21)
PROC: 0W9930Z Drainage of Right Pleural Cavity with Drainage Device, Percutaneous Approach (ICD-10-PCS; 2017-10-25)
DX: J96.02 Acute respiratory failure with hypercapnia (principal); I26.99 Other pulmonary embolism without acute cor pulmonale; J15.211 Pneumonia due to Methicillin susceptible Staphylococcus aureus; I50.31 Acute diastolic (congestive) heart failure; I11.0 Hypertensive heart disease with heart failure; N17.9 Acute kidney failure, unspecified; Z68.43 Body mass index [BMI] 50.0-59.9, adult; J44.0 Chronic obstructive pulmonary disease with (acute) lower respiratory infection; R78.81 Bacteremia; J96.01 Acute respiratory failure with hypoxia; E11.9 Type 2 diabetes mellitus without complications; E66.01 Morbid (severe) obesity due to excess calories; G47.33 Obstructive sleep apnea (adult) (pediatric); R00.1 Bradycardia, unspecified
CPT/HCPCS: 36415; 36600; 71010; 76775; 80048; 80053; 80061; 80069; 80202; 81003; 82248; 82550; 82553; 82607; 82728; 82746; 82803; 82962; 82977; 83036; 83540; 83550; 83615; 83735; 83880; 84100; 84300; 84443; 84484; 84550; 85007; 85025; 85044; 85060; 85610; 85651; 85730; 86140; 87040; 87070; 87081; 87181; 87205; 89050; 92950; 93005; 93306; 93970; 94002; 94003; 94640; 94660; 94664; 99291; J0171; J1815; J7620